=== PATIENT | female | born 1940 | race Caucasian/White ===

== ENCOUNTER → 2016-04-22 | Outpatient (REF) | payer MEDICARE ==
[~2016-04-22] MED LIST: ADVI200T PO; ALBU83IN NEB; AUGM875T27 PO; CALCTAB75 PO; CALCTAB93 PO; IPRA2IN INH; MIRA255PW PO; MULTCAP PO; OMEP40CA2 PO; PRED20TAB PO; TYLE325T5 PO; VITMTA PO
[2016-04-22 11:37] LABS: MEAN CORPUSCULAR HEMOGLOBIN 27.1 pg (27.0-33.0); MEAN CORPUSCULAR HGB CONC 31.2 g/dl (32.0-36.5); RED CELL DISTRIBUTION WIDTH 15.2 % (11.5-14.5); WHITE BLOOD COUNT 9.4 K/mm3 (4.0-10.0)
[2016-04-22 12:09] LABS: ALBUMIN 3.2 GM/DL (3.2-5.2); ALBUMIN/GLOBULIN RATIO 0.73 (1.00-1.93); BILIRUBIN,TOTAL 0.3 MG/DL (0.2-1.0); CALCIUM LEVEL 9.1 MG/DL (8.8-10.2); CREATININE FOR GFR 1.09 MG/DL (0.55-1.02); FREE T4 1.18 NG/DL (0.76-1.46); PERCENT SATURATION 9.9 % (13.2-37.4); TOTAL PROTEIN 7.6 GM/DL (6.4-8.2)
== END ==
LOC: M SFHCPLAZ 08:35
PROVIDERS: ATTEND Family Medicine
DX: J47.9 Bronchiectasis, uncomplicated (principal); E55.9 Vitamin D deficiency, unspecified; Z86.2 Personal history of diseases of the blood and blood-forming organs and certain disorders involving the immune mechanism; R63.6 Underweight; Z13.220 Encounter for screening for lipoid disorders; Z79.899 Other long term (current) drug therapy

== ENCOUNTER → 2016-04-29 | Outpatient (REF) | payer MEDICARE | LOC: M SFHCPLAZ 11:08 | PROVIDERS: ATTEND Family Medicine | DX: J47.1 Bronchiectasis with (acute) exacerbation (principal) ==

== ENCOUNTER → 2016-10-28 | Outpatient (REF) | payer MEDICARE ==
[~2016-10-28] MED LIST changes: +ALBU83IN INH; +AMOX875T2 PO; -AUGM875T27 PO; +AUGM875T28 PO; +BRIM2OPD; +CALC1TAB17 PO; +FERR1TAB8 PO; +IRON18TA2 PO; +MACR100C43 PO; +PRED20TA PO
[2016-10-28 13:26] LABS: MEAN CORPUSCULAR HEMOGLOBIN 30.3 pg (27.0-33.0); MEAN CORPUSCULAR HGB CONC 31.9 g/dl (32.0-36.5); MEAN CORPUSCULAR VOLUME 94.9 fl (80.0-96.0); RED CELL DISTRIBUTION WIDTH 14.1 % (11.5-14.5); RETIC HEMOGLOBIN CONTENT CHr 30.9 PG (24-36); RETICULOCYTE % 1.2 % (0.5-1.5); WHITE BLOOD COUNT 7.6 K/mm3 (4.0-10.0)
[2016-10-28 13:32] LABS: ALBUMIN 3.1 GM/DL (3.2-5.2); CALCIUM LEVEL 9.2 MG/DL (8.8-10.2); CREATININE FOR GFR 1.05 MG/DL (0.55-1.02); GLOMERULAR FILTRATION RATE 54.2 (>39); PERCENT SATURATION 12.3 % (13.2-45.0); PHOSPHORUS LEVEL 2.9 MG/DL (2.5-4.9); POTASSIUM SERUM 4.4 MEQ/L (3.5-5.1)
== END ==
LOC: M SFHCPLAZ 07:50
PROVIDERS: ATTEND Family Medicine
DX: Z86.2 Personal history of diseases of the blood and blood-forming organs and certain disorders involving the immune mechanism (principal)

== ENCOUNTER → 2016-11-05 | Outpatient (REF) | payer MEDICARE | LOC: M SFHCPLAZ 10:03 | PROVIDERS: ATTEND Family Medicine | DX: Z53.8 Procedure and treatment not carried out for other reasons (principal) ==

== ENCOUNTER 2016-12-12 14:00 | Emergency (ER) | payer MEDICARE ==
[~2016-12-12] VITALS: Ht 152.4 cm; Wt 50.0 kg
[~2016-12-12 14:00] MED LIST changes: -ALBU83IN INH; -AMOX875T2 PO; -BRIM2OPD; -CALC1TAB17 PO; -FERR1TAB8 PO; -IRON18TA2 PO; -MACR100C43 PO; -PRED20TA PO
[2016-12-12] MEDS ORDERED: BRIM2OPD (14:11)
[2016-12-12] MEDS: NS 1,000 ML IV SCH (15:15)
[2016-12-12 15:19] LABS: VENOUS BASE EXCESS 1.2 (-2.0-2.0); VENOUS O2 SATURATION 61.6 % (60.0-80.0); VENOUS PARTIAL PRESSURE CO2 40.2 mmHg (38.0-50.0); VENOUS PARTIAL PRESSURE O2 31.4 mmHg (30.0-50.0); VENOUS STANDARD HCO3 24.8 MEQ/L; VENOUS TOTAL CO2 26.9 MEQ/L (24.0-28.0)
[2016-12-12 15:27] LABS: MEAN CORPUSCULAR HEMOGLOBIN 29.6 pg (27.0-33.0); MEAN CORPUSCULAR HGB CONC 32.3 g/dl (32.0-36.5); MEAN CORPUSCULAR VOLUME 91.7 fl (80.0-96.0); PLATELET COUNT, AUTOMATED 153 10^3/uL (150-450); RED CELL DISTRIBUTION WIDTH 13.5 % (11.5-14.5); WHITE BLOOD COUNT 12.3 10^3/uL (4.0-10.0)
[2016-12-12 15:31] LABS: LEFT SHIFT POS FLAG; POSITIVE MORPH POS FLAG
[2016-12-12 15:32] LABS: ADD MANUAL DIFFER YES; DIFF SLIDE NUMBER 119
[2016-12-12 15:46] LABS: ALBUMIN/GLOBULIN RATIO 0.63 (1.00-1.93); ALKALINE PHOSPHATASE 103 U/L (45-117); ALT/SGPT 21 U/L (12-78); ANION GAP 11 MEQ/L (8-16); AST/SGOT 25 U/L (15-37); BILIRUBIN,DIRECT 0.3 MG/DL (0.0-0.2); BILIRUBIN,TOTAL 0.8 MG/DL (0.2-1.0); BLOOD UREA NITROGEN 16 MG/DL (7-18); CALCIUM LEVEL 8.7 MG/DL (8.8-10.2); CARBON DIOXIDE LEVEL 23 MEQ/L (21-32); CHLORIDE LEVEL 101 MEQ/L (98-107); CREATININE FOR GFR 1.32 MG/DL (0.55-1.02); GLOMERULAR FILTRATION RATE 41.5 (>39); GLUCOSE, FASTING 116 MG/DL (83-110); POTASSIUM SERUM 3.8 MEQ/L (3.5-5.1); SODIUM LEVEL 135 MEQ/L (136-145); TOTAL PROTEIN 7.8 GM/DL (6.4-8.2)
[2016-12-12 15:56] LABS: INR 1.23
[2016-12-12 15:57] LABS: BANDS 10 % (< 11)
[2016-12-12] MEDS ORDERED: ISOVUE-370 76% 100ML VIAL (Q9967) As Ordered ONE (16:35)
[2016-12-12 16:53] LABS: RENAL EPITHELIAL CELLS 2 /HPF
[2016-12-12 17:00] VITALS: O2SAT 88
[2016-12-12] MEDS ORDERED: MACR100C43 PO (17:25)
[2016-12-12 17:47] VITALS: BP 113/59
--- NOTE | 2016-12-13 05:36 | REP ---
Chest x-ray: Two views. History: Dyspnea and cough. Comparison chest x-ray November 05, 2015. Findings: There is evidence of severe COPD with cystic bronchiectasis replacing most of the lower lobe on the left and volume loss and interstitial fibrosis in the upper lobe. There is considerable pleural thickening surrounding the upper lobe on the left and there is overall volume loss in the left hemithorax. Interstitial fibrosis pattern is seen in the right upper lobe and right base laterally. These changes on the right are a little more prominent than on the prior study. No bony destructive lesion is seen. There is a calcific opacity in the right upper quadrant of the abdomen which may be rib cartilage or biliary tract calcification. Impression: Evidence of cystic bronchiectasis replacing most of the left lower lobe. Overall volume loss left hemithorax. Considerable pleural thickening surrounding the left upper lobe with bilateral upper lobe and right base interstitial fibrosis pattern. The right lung changes are more pronounced than previously. Consider chest CT preferably with IV contrast. Signed by Milan Sullivan MD 12/13/2016 08:42 A
--- NOTE | 2016-12-13 06:05 | REP ---
CT chest with IV contrast: History: Shortness of breath. Comparison is made with today's chest x-ray findings. CT contrast dose: 75 ml of intravenous Isovue [address] findings: There is advanced cystic bronchiectasis throughout the left lung. This is most pronounced in the left lower lobe where there are innumerable cystic spaces replacing the lung parenchyma. There are advanced changes in the left upper lobe as well. Mild reactive pleural thickening is seen. There is volume loss in the left lung as seen radiographically. There are emphysematous and interstitial fibrosis changes in the right lung. Bronchiectasis is noted with chronic collapse of the right middle lobe as well. There is some segmental bronchiectasis and atelectasis in the right lower lobe. There is mild subcarinal right hilar and mediastinal lymphadenopathy which may be reactive. A small sliding hiatal hernia is noted. An opaque gallstone is seen. There are several intrarenal calculi in the left kidney the largest of which measures 7 mm in greatest diameter. The calcified gallstone measures 16 mm. No bony destructive lesion is seen. Impression: Advanced cystic bronchiectasis bilaterally. This is most pronounced throughout the left lung and in the right middle lobe. Cholelithiasis and left renal nephrolithiasis without hydronephrosis is seen. Some interstitial fibrosis is noted in the remaining right lung. A small hiatal hernia is visible. Mediastinal and right hilar adenopathy may be reactive. Signed by Milan Sullivan MD 12/13/2016 08:45 A
--- NOTE | 2016-12-13 08:02 | ECGEPIP ---
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
--- NOTE | 2016-12-13 10:00 | ED PDOC ---
Post-Departure Follow-Up radiology report faxed to Deb Palmer MD Dec 13, 2016 10:00
[2016-12-13] MEDS ORDERED: IRON18TA2 PO (15:50)
[2016-12-13] MEDS ORDERED: FERR1TAB8 PO (21:52)
[2016-12-13] MEDS ORDERED: CALC1TAB17 PO (21:52)
[2016-12-13] MEDS ORDERED: ALBU83IN INH (21:52)
== END 2016-12-12 17:42 | disposition home or self-care (01) ==
LOC: M ED 14:00
DX: N39.0 Urinary tract infection, site not specified (principal); Z79.01 Long term (current) use of anticoagulants

== ENCOUNTER 2016-12-13 15:36 | Inpatient (IN) | payer MEDICARE ==
[~2016-12-13] VITALS: Ht 152.4 cm; Wt 52.1 kg
[~2016-12-13 15:36] MED LIST changes: +BRIM2OPD; +MACR100C43 PO
[2016-12-13] MEDS ORDERED: IRON18TA2 PO (15:50)
[2016-12-13] MEDS ORDERED: ACETAMINOPHEN TAB 650MG DOSE (2X325MG) PO ONE (16:30)
[2016-12-13 16:40] LABS: MEAN CORPUSCULAR HEMOGLOBIN 29.6 pg (27.0-33.0); MEAN CORPUSCULAR HGB CONC 32.5 g/dl (32.0-36.5); PLATELET COUNT, AUTOMATED 171 10^3/uL (150-450); RED CELL DISTRIBUTION WIDTH 13.3 % (11.5-14.5); WHITE BLOOD COUNT 11.2 10^3/uL (4.0-10.0)
[2016-12-13 16:42] LABS: POSITIVE MORPH POS FLAG
[2016-12-13 16:43] LABS: LEFT SHIFT POS FLAG
[2016-12-13 16:44] LABS: ADD MANUAL DIFFER YES; DIFF SLIDE NUMBER 321
[2016-12-13 16:50] LABS: INR 1.23
--- NOTE | 2016-12-13 16:56 | REP ---
Chest two views HISTORY: Cough Comparison: 12/12/1969 There is loss of volume in the left hemithorax. A diffuse increase in interstitial markings is present in the lungs. Cystic changes are present in the left mid and lower lung. The heart is normal in size. The pulmonary vasculature is normal in appearance. The bony structure is intact. IMPRESSION: Findings consistent with chronic interstitial fibrosis and cystic bronchiectasis. Signed by Luis Mercado MD 12/13/2016 04:48 P
[2016-12-13 16:57] LABS: ABG BASE EXCESS -1.6 (-2.0-2.0); ABG HCO3 21.4 MEQ/L (22.0-26.0); ABG PARTIAL PRESSURE CO2 30.5 mmHg (35.0-45.0); ABG PARTIAL PRESSURE O2 77.6 mmHg (75.0-100.0); ABG STANDARD HCO3 23.1 MEQ/L (22.0-26.0); ABG TOTAL CO2 22.3 MEQ/L (23.0-31.0); ABG pH (ARTERIAL) 7.463 UNITS (7.350-7.450)
[2016-12-13 17:09] LABS: BANDS 2 % (< 11)
[2016-12-13 17:10] LABS: HYPOCHROMASIA 1+
[2016-12-13 17:13] LABS: ALBUMIN 2.8 GM/DL (3.2-5.2); ALBUMIN/GLOBULIN RATIO 0.54 (1.00-1.93); BILIRUBIN,DIRECT 0.3 MG/DL (0.0-0.2); BILIRUBIN,TOTAL 0.8 MG/DL (0.2-1.0); CALCIUM LEVEL 8.7 MG/DL (8.8-10.2); CREATININE FOR GFR 1.29 MG/DL (0.55-1.02); GLOMERULAR FILTRATION RATE 42.7 (>39); POTASSIUM SERUM 3.6 MEQ/L (3.5-5.1)
[2016-12-13] MEDS ORDERED: IPRATROPIUM 0.5MG/ALBUTEROL 2.5MG INH SOL UD 3ML (DUONEB)(J7620) NEB PRN (20:45)
[2016-12-13] MEDS ORDERED: ONDANSETRON 4MG/2ML VIAL (J2405) IV PRN (20:45)
[2016-12-13] MEDS: SENOKOT S TAB PO SCH (21:00)
[2016-12-13] MEDS ORDERED: FERR1TAB8 PO (21:52)
[2016-12-13] MEDS ORDERED: ALBU83IN INH (21:52)
[2016-12-13] MEDS ORDERED: CALC1TAB17 PO (21:52)
--- NOTE | 2016-12-13 22:02 | HPE ---
DATE OF ADMISSION: 12/13/2016 PRIMARY CARE PROVIDER: Dustin Grier MD VETERINARIAN ASSISTANT: Stoney Leo DO CHIEF COMPLAINT: Shortness of breath, coughing, fevers, generalized weakness. HISTORY OF PRESENT ILLNESS: This is a 76-year-old female patient with underlying medical history of severe bronchiectasis with heavy pseudomonas colonization before, secondary to secondhand smoke, emphysema, adenomatous polyps in the colon, gallstone pancreatitis 2012, osteoporosis, cataract surgery, glaucoma, likely emphysema as well, currently being treated for a urinary tract infection (UTI), presented to hospital with a 4 day history of progressively worsening weakness, significant cough productive of large amount of green sputum, shortness of breath, generalized weakness, at baseline is ambulatory, sick contact is the who is recently having upper respiratory infection (URI) symptoms. Patient has a history of pseudomonas colonization as per documentation. Currently, also has hoarseness. Patient denies any chest pain, pressure, or discomfort. Denies any nausea or vomiting. No recent travel. ALLERGIES: BIMATOPROST, TRAVATAN, KEFLEX, CLARITHROMYCIN, DICLOFENAC, DORZOLAMIDE, XALATAN, LEVAQUIN, BACTRIM, TIMOLOL, TRAVOPROST, MOXIFLOXACIN. PAST MEDICAL HISTORY: 1. Emphysema. 2. Bronchiectasis. 3. Adenomatous polyps in the colon. 4. Gallstone pancreatitis. 5. Glaucoma. 6. Cataracts. 7. Long-term secondhand smoking exposure. 8. Osteoporosis. PAST SURGICAL HISTORY: 1. Colonoscopy. 2. Bilateral cataract extraction. 3. Left eye laser surgery. SOCIAL HISTORY: Nonsmoker, heavy secondhand smoke. Does not drink alcohol or use illicit drugs. Not on oxygen at home. Not on continuous positive airway pressure (CPAP) at home. FAMILY HISTORY: Father with emphysema and smoking, from lung disease. REVIEW OF SYSTEMS: Reported significant cough, shortness of breath, hoarseness, generalized weakness. All other review of systems negative. HOME MEDICATIONS: - acetaminophen 650 mg by mouth every 4 hours as needed - DuoNeb inhalation every 2 hours as needed - brimonidine eye drops 0.125% twice a day - calcium with vitamin D one tablet by mouth daily - ibuprofen 200 mg by mouth as needed - multivitamin one tablet by mouth daily - nitrofurantoin 100 mg by mouth twice a day - ferrous sulfate once daily PHYSICAL EXAMINATION: VITAL SIGNS: Temperature 98.9, maximum temperature (T-max) 101.2, pulse 86, respirations 22, blood pressure 123/56, pulse oximetry 96% on three liters nasal cannula. GENERAL: Patient was hoarse, frail, comfortable, in no acute distress. HEENT: Normocephalic, atraumatic. PULMONARY: Diminished breath sounds, bilateral rhonchi and crackles. CARDIAC: Regular rate and rhythm, normal S1, S2. ABDOMEN: Soft, nontender. Positive bowel sounds. EXTREMITIES: No edema bilateral lower extremities. EKG sinus tachycardia at 100, no ST segment changes. LABORATORY DATA: WBC 11.2, hemoglobin and hematocrit 10.8/33.2, platelets 171. Chemistry: Sodium 135, potassium 3.6, chloride 101, bicarbonate 23, BUN 17, creatinine 1.29, C-reactive protein 18.5. Chest x-ray shows consistent with interstitial fibrosis, cystic bronchiectasis. ASSESSMENT AND PLAN: This is a 76-year-old female patient with underlying medical history of heavy secondhand smoking, bronchiectasis with pseudomonas colonization, colonic adenoma, gallstone pancreatitis, emphysema, osteoporosis, admitted with pneumonia and hypoxic respiratory failure. 1. Community-acquired bacterial pneumonia. Given history of pseudomonas colonization, will place the patient on meropenem. Followup cultures, sputum cultures, C-reactive protein, respiratory panel. Nebulizer treatments. Continue home medication. 2. Emphysema. Solu-Medrol, nebulizer treatments. Patient does not have any significant wheeze. Continue treatment for pneumonia as above. 3. Urinary tract infection (UTI). Patient will be on meropenem. 4. Hoarseness. Rapid strep negative in the emergency department (ED). 5. Deep venous thrombosis (DVT) prophylaxis. Heparin subcutaneous. DISPOSITION PLANNING: Pending clinical improvement. Oxygen supplementation, wean FiO2. Physical therapy.
[2016-12-13] MEDS ORDERED: SLF 3 ML SYR IV PRN (23:45)
[2016-12-13 23:59] VITALS: BP 116/56
[2016-12-14] VITALS (14 sets, daily range): BP systolic 90–122; BP diastolic 48–58; O2SAT 94–99
[2016-12-14] MEDS: MEROPENEM INJ 1 GM in D5W MINI-BAG PLUS 100 ML IV SCH ×3 (00:16→15:57)
[2016-12-14] MEDS: methylPREDNISolone INJ 125 MG/2 ML VIAL (J2930) IV SCH ×2 (00:16→11:28)
[2016-12-14] MEDS: IPRATROPIUM 0.5MG/ALBUTEROL 2.5MG INH SOL UD 3ML (DUONEB)(J7620) NEB SCH ×4 (01:36→19:29)
[2016-12-14 05:27] LABS: MEAN CORPUSCULAR HEMOGLOBIN 29.4 pg (27.0-33.0); MEAN CORPUSCULAR HGB CONC 32.4 g/dl (32.0-36.5); RED CELL DISTRIBUTION WIDTH 13.2 % (11.5-14.5); WHITE BLOOD COUNT 5.6 10^3/uL (4.0-10.0)
[2016-12-14] MEDS: SLF 3 ML SYR IV SCH ×3 (05:29→19:48)
--- NOTE | 2016-12-14 05:30 | ECGEPIP ---
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
[2016-12-14 06:03] LABS: CREATININE FOR GFR 1.02 MG/DL (0.55-1.02); GLOMERULAR FILTRATION RATE 55.9 (>39); MAGNESIUM LEVEL 2.2 MG/DL (1.8-2.4); POTASSIUM SERUM 3.8 MEQ/L (3.5-5.1)
[2016-12-14] MEDS: HEPARIN SOD (PORCINE) 5000 UNITS/ML VIAL SC SCH ×2 (08:06→19:48)
[2016-12-14] MEDS: MULTIVITAMINS/MINERALS THERAP 1 TAB PO SCH (08:06)
[2016-12-14] MEDS: SENOKOT S TAB PO SCH ×2 (08:07→19:47)
[2016-12-14] MEDS: FERROUS SULFATE 325MG TAB PO SCH (08:07)
[2016-12-14] MEDS: ACETAMINOPHEN TAB 650MG DOSE (2X325MG) PO PRN ×2 (09:20→19:49)
--- NOTE | 2016-12-14 09:22 | IPNPDOC ---
Subjective Date Seen The patient was seen on 12/14/16. Subjective Chief Complaint/HPI The patient is a 76-year-old female admitted with a reason for visit of Bronchiectasis;Hypoxia. Events since last encounter Pt's at bedside, he is very anxious, somewhat agitated and disruptive during our encounter. The pt after finally settling her states that she is feeling better, she feels less SOB, she is coughing, with some sputum production. Both an improvement c/w yesterday. She denies any further fevers as well. General: Denies: Fatigue Constitutional: Denies: Fever ENT: Denies: Head Aches Pulmonary: Reports: Dyspnea, Cough Cardiovascular: Denies: Chest Pain, Palpitations Gastrointestinal: Denies: Nausea, Vomiting, Diarrhea Neurological: Reports: Weakness Psych: Reports: Mood Normal Objective Physical Examination General Exam: Positive: Alert, Cooperative, No Acute Distress ENT Exam: Positive: Mucous membr. moist/pink Neck Exam: Positive: Supple Chest Exam: Positive: Rhonchi (throughout but most notable at the R base), Diminished Heart Exam: Positive: Rate Normal, Normal S1, Normal S2 Abdomen Exam: Positive: Normal bowel sounds, Soft, Negative: Tenderness Extremity Exam: Negative: Edema Psych Exam: Positive: Mental status NL, Mood NL Assessment /Plan Problems (1) Community acquired bacterial pneumonia Status: Acute Response to Treatment: Stable, Improving Discussed With: Nurse, Patient, Family with Pt Consent Problem Specific Plan: Monitor Clinically Problem Text: Resp status stable, improved. Cont with O2, Duonebs, Meropenem D2 (mtp abx allergies). Sputum culture pending. (2) Bronchiectasis Status: Chronic Response to Treatment: Stable Discussed With: Nurse, Patient, Family with Pt Consent Problem Specific Plan: Monitor Clinically Problem Text: Cont O2, Duonebs, Solumedrol. She follows with Dr Leo as as outpt. (3) Hypoxia Status: Acute Response to Treatment: Stable, Improving Problem Specific Plan: Monitor Clinically (4) UTI (urinary tract infection) Status: Acute Response to Treatment: Stable Discussed With: Nurse, Patient, Family with Pt Consent Problem Specific Plan: Monitor Clinically, Repeat Labs Problem Text: Urine culture pending, cont with meropenem D 2. Plan/VTE VTE Prophylaxis Ordered?: Yes Plan Family Medicine Attending Note: I saw and examined Ms. Miller, discussed with JANNETH Emery. Agree with their note as documented. She reports that her breathing is a little better today compared to yesterday. We will continue to monitor her symptoms and labs. VS, I&O, 24H, [place] Vital Signs/I&O Vital Signs Date Time Temp Pulse Resp B/P (MAP) Pulse Ox O2 Delivery O2 Flow Rate FiO2 12/14/16 07:29 Nasal Cannula 2.0 12/14/16 07:10 97.4 68 20 90/55 (67) 94 12/13/16 16:43 88 Laboratory Data 24H LABS Laboratory Tests 2 12/13/16 16:27: Lactic Acid Level 1.9 12/13/16 16:28: Nucleated Red Blood Cells % (auto) 0.0, Neutrophils 77H, Band Neutrophils 2, Lymphocytes (Manual) 9L, Monocytes (Manual) 12H, Atypical Lymphocytes 0, Platelet Estimate NORMAL, Hypochromasia 1+, Prothrombin Time 15.7H, Prothromb Time International Ratio 1.23, Activated Partial Thromboplast Time 35.5, Anion Gap 11, Glomerular Filtration Rate 42.7, Calcium Level 8.7L, Aspartate Amino Transf (AST/SGOT) 25, Alanine Aminotransferase (ALT/SGPT) 20, Alkaline Phosphatase 113, Total Bilirubin 0.8, Direct Bilirubin 0.3H, C-Reactive Protein , Quantitative 18.50H, Total Protein 8.0, Albumin 2.8L, Albumin/Globulin Ratio 0.54L 12/13/16 16:41: Blood Gas Bicarbonate Standard 23.1, Arterial Blood pH 7.463H, Arterial Blood Partial Pressure CO2 30.5L, Arterial Blood Partial Pressure O2 77.6, Arterial Blood Total CO2 22.3L, Arterial Blood HCO3 21.4L, Arterial Blood Base Excess - 1.6, Arterial Blood Oxygen Saturation 96.4 12/13/16 23:45: Urine Appearance HAZY, Urine Color YELLOW, Urine pH 5.0, Urine Specific [place] 1.016, Urine Protein NEGATIVE, Urine Glucose (UA) NEGATIVE, Urine Ketones TRACEH , Urine Urobilinogen 0.2, Urine Bilirubin NEGATIVE, Urine Leukocyte Esterase 2+H , Urine Blood 1+H, Urine Nitrite NEGATIVE, Urine WBC (Auto) 26H, Urine RBC (Auto ) 19H, Urine Hyaline Casts (Auto) 4, Urine Bacteria (Auto) NEGATIVE, Urine Squamous Epithelial Cells 1, Urine Mucus (Auto) SMALL, Urine Sperm (Auto) 12/14/16 04:40: Nucleated Red Blood Cells % (auto) 0.0, Anion Gap 12, Glomerular Filtration Rate 55.9, Blood Urea Nitrogen 19H, Creatinine 1.02, Sodium Level 138, Potassium Level 3.8, Chloride Level 105, Carbon Dioxide Level 21, Calcium Level 8.0L, Magnesium Level 2.2, C-Reactive Protein, Quantitative 18.80H CBC/BMP Laboratory Tests 12/13/16 16:28 Red Blood Count 3.65 L, Mean Corpuscular Volume 91.0, Mean Corpuscular Hemoglobin 29.6, Mean Corpuscular Hemoglobin Concent 32.5, Red Cell Distribution Width 13.3 12/14/16 04:40 Red Blood Count 3.43 L, Mean Corpuscular Volume 91.0, Mean Corpuscular Hemoglobin 29.4, Mean Corpuscular Hemoglobin Concent 32.4, Red Cell Distribution Width 13.2, Calcium Level 8.0 L Microbiology Microbiology 12/13/16 Blood Culture, Received Pending 12/13/16 Blood Culture, Received Pending 12/14/16 Respiratory Virus Panel (PCR) (AJ) - Final, Complete 12/13/16 Gram Stain - Final, Resulted 12/13/16 Sputum Culture, Resulted Pending 12/13/16 Urine Culture, Received Pending FANNY CABRAL PA-C Dec 14, 2016 09:22 Krzysztof Palafox MD Dec 15, 2016 07:24
[2016-12-15] VITALS (12 sets, daily range): BP systolic 110–137; BP diastolic 56–65; O2SAT 94–100
[2016-12-15] MEDS: methylPREDNISolone INJ 125 MG/2 ML VIAL (J2930) IV SCH ×3 (01:03→23:57)
[2016-12-15] MEDS: MEROPENEM INJ 1 GM in D5W MINI-BAG PLUS 100 ML IV SCH ×4 (01:03→23:57)
[2016-12-15] MEDS: IPRATROPIUM 0.5MG/ALBUTEROL 2.5MG INH SOL UD 3ML (DUONEB)(J7620) NEB SCH ×4 (02:03→19:45)
[2016-12-15 05:56] LABS: MEAN CORPUSCULAR HEMOGLOBIN 29.5 pg (27.0-33.0); MEAN CORPUSCULAR VOLUME 89.5 fl (80.0-96.0); RED CELL DISTRIBUTION WIDTH 13.2 % (11.5-14.5); WHITE BLOOD COUNT 6.5 10^3/uL (4.0-10.0)
[2016-12-15] MEDS: SLF 3 ML SYR IV SCH ×3 (06:00→22:06)
[2016-12-15 06:10] LABS: CALCIUM LEVEL 8.3 MG/DL (8.8-10.2); CREATININE FOR GFR 1.38 MG/DL (0.55-1.02); GLOMERULAR FILTRATION RATE 39.5 (>39); MAGNESIUM LEVEL 2.4 MG/DL (1.8-2.4); POTASSIUM SERUM 3.7 MEQ/L (3.5-5.1)
[2016-12-15] MEDS: MULTIVITAMINS/MINERALS THERAP 1 TAB PO SCH (08:33)
[2016-12-15] MEDS: FERROUS SULFATE 325MG TAB PO SCH (08:33)
[2016-12-15] MEDS: HEPARIN SOD (PORCINE) 5000 UNITS/ML VIAL SC SCH ×2 (08:33→22:05)
[2016-12-15] MEDS: SENOKOT S TAB PO SCH ×2 (08:33→22:21)
--- NOTE | 2016-12-15 09:56 | IPNPDOC ---
Subjective Date Seen The patient was seen on 12/15/16. Subjective Chief Complaint/HPI The patient is a 76-year-old female admitted with a reason for visit of Bronchiectasis;Hypoxia. Events since last encounter Pt states she feels about the same. Complains of weakness. Still SOB. Denies CP, Abd pain. Constitutional: Denies: Chills, Fever Pulmonary: Reports: Dyspnea Cardiovascular: Denies: Chest Pain Gastrointestinal: Denies: Abdominal Pain Neurological: Reports: Weakness Objective Physical Examination General Exam: Positive: Alert, Cooperative, No Acute Distress ENT Exam: Positive: Mucous membr. moist/pink Neck Exam: Positive: Supple Chest Exam: Positive: Rhonchi (throughout but most notable at the R base), Diminished Heart Exam: Positive: Rate Normal, Normal S1, Normal S2 Abdomen Exam: Positive: Normal bowel sounds, Soft, Negative: Tenderness Extremity Exam: Negative: Edema Psych Exam: Positive: Mental status NL, Mood NL, Oriented x 3 Assessment /Plan Problems (1) Community acquired bacterial pneumonia Status: Acute Response to Treatment: Stable, Improving Discussed With: Nurse, Patient, Family with Pt Consent Problem Specific Plan: Monitor Clinically Problem Text: 12/15 - Meropenem, Nebs, O2. Will order IS. Sputum Cx pending. Resp status stable, improved. Cont with O2, Duonebs, Meropenem D2 (mtp abx allergies). Sputum culture pending. (2) Bronchiectasis Status: Chronic Response to Treatment: Stable Discussed With: Nurse, Patient, Family with Pt Consent Problem Specific Plan: Monitor Clinically Problem Text: 12/15 - Meropenem, Nebs, O2. Will order IS. Sputum Cx pending. Cont O2, Duonebs, Solumedrol. She follows with Dr Leo as as outpt. (3) Hypoxia Status: Resolved Response to Treatment: Stable, Improving Problem Specific Plan: Monitor Clinically (4) UTI (urinary tract infection) Status: Acute Response to Treatment: Stable Discussed With: Nurse, Patient, Family with Pt Consent Problem Specific Plan: Monitor Clinically, Repeat Labs Problem Text: Urine culture pending, cont with meropenem D 2. (5) Acute kidney injury Status: Resolved Problem Specific Plan: Monitor Clinically Problem Text: 12/15 - BUN 42/Creat 1.32 (18/03.02 yesterday). Will obtain Renal U/S. (6) Weakness Status: Resolved Problem Specific Plan: Monitor Clinically Problem Text: 12/15 - Will order PT/OT. Plan/VTE VTE Prophylaxis Ordered?: Yes Plan Family Medicine Attending Note: I saw and examined Ms. Miller, discussed with JANNETH Pal. Agree with their note as documented. Ms. Miller has made some improvement but still remains quite wheezy and short of breath. We'll continue current regimen and monitor. 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) VS, I&O, 24H, Fishbone Vital Signs/I&O Vital Signs Date Time Temp Pulse Resp B/P (MAP) Pulse Ox O2 Delivery O2 Flow Rate FiO2 12/15/16 08:00 97.4 87 20 116/65 (82) 95 Room Air 12/14/16 17:00 2.0 12/13/16 16:43 88 I&O- Last 24 Hours up to 6 AM 12/16/16 05:59 Intake Total 0 ml Output Total 350 ml Balance -350 ml Laboratory Data 24H LABS Laboratory Tests 2 12/15/16 05:24: Nucleated Red Blood Cells % (auto) 0.0, Anion Gap 9, Glomerular Filtration Rate 39.5, Blood Urea Nitrogen 42#H, Creatinine 1.38H, Sodium Level 144, Potassium Level 3.7, Chloride Level 107, Carbon Dioxide Level 28, Calcium Level 8.3L, Magnesium Level 2.4 CBC/BMP Laboratory Tests 12/15/16 05:24 Red Blood Count 3.25 L, Mean Corpuscular Volume 89.5, Mean Corpuscular Hemoglobin 29.5, Mean Corpuscular Hemoglobin Concent 33.0, Red Cell Distribution Width 13.2, Calcium Level 8.3 L Microbiology Microbiology 12/13/16 Blood Culture - Preliminary, Resulted No growth after 24 hours . All specim... 12/13/16 Blood Culture - Preliminary, Resulted No growth after 24 hours . All specim... 12/14/16 Respiratory Virus Panel (PCR) (AJ) - Final, Complete 12/13/16 Gram Stain - Final, Resulted 12/13/16 Sputum Culture, Resulted Pending 12/13/16 Urine Culture, Received Pending Ortega Cabrera Dec 15, 2016 09:56 Krzysztof Palafox MD Dec 17, 2016 15:25
--- NOTE | 2016-12-15 14:13 | REP ---
RENAL ULTRASOUND: HISTORY: Acute kidney injury. The kidney are hyperechoic. The kidneys are atrophic. The right kidney measures 5.5 cm in transverse by 4.2 cm in AP x 7.5 cm in cephalocaudal dimensions. The left kidney measures 5.4 cm in transverse x 4.9 cm in AP x 9.1 cm in cephalocaudal dimensions. There is no hydronephrosis or mass. There are several focal areas of increased echogenicity in the left kidney that may represent small stones. The largest measures 6.5 mm. There are no filling defects in the urinary bladder. IMPRESSION: 1. Bilateral renal atrophy. 2. There are several small areas of increased echogenicity in the left kidney that may represent stones. Signed by Luis Mercado MD 12/15/2016 02:21 P
[2016-12-16] VITALS (12 sets, daily range): BP systolic 117–145; BP diastolic 57–65; O2SAT 94–95
[2016-12-16] MEDS: IPRATROPIUM 0.5MG/ALBUTEROL 2.5MG INH SOL UD 3ML (DUONEB)(J7620) NEB SCH ×4 (02:00→19:14)
[2016-12-16 06:12] LABS: MEAN CORPUSCULAR HGB CONC 32.3 g/dl (32.0-36.5); MEAN CORPUSCULAR VOLUME 89.9 fl (80.0-96.0); RED CELL DISTRIBUTION WIDTH 13.4 % (11.5-14.5)
[2016-12-16] MEDS: SLF 3 ML SYR IV SCH ×3 (06:17→20:52)
[2016-12-16 06:27] LABS: CALCIUM LEVEL 8.3 MG/DL (8.8-10.2); GLOMERULAR FILTRATION RATE 57.2 (>39); MAGNESIUM LEVEL 2.4 MG/DL (1.8-2.4); POTASSIUM SERUM 3.8 MEQ/L (3.5-5.1)
[2016-12-16] MEDS: MULTIVITAMINS/MINERALS THERAP 1 TAB PO SCH (08:35)
[2016-12-16] MEDS: FERROUS SULFATE 325MG TAB PO SCH (08:35)
[2016-12-16] MEDS: MEROPENEM INJ 1 GM in D5W MINI-BAG PLUS 100 ML IV SCH ×3 (08:35→22:56)
[2016-12-16] MEDS: SENOKOT S TAB PO SCH ×2 (08:35→20:50)
[2016-12-16] MEDS: HEPARIN SOD (PORCINE) 5000 UNITS/ML VIAL SC SCH ×2 (08:35→20:50)
--- NOTE | 2016-12-16 08:40 | IPNPDOC ---
Subjective Date Seen The patient was seen on 12/16/16. Subjective Chief Complaint/HPI The patient is a 76-year-old female admitted with a reason for visit of Bronchiectasis;Hypoxia. Events since last encounter Pt feeling much better this morning. She states that her breathing is much better than it was, she is coughing less and with less sputum production. General: Denies: Fatigue Constitutional: Denies: Chills, Fever ENT: Denies: Head Aches Pulmonary: Reports: Dyspnea, Cough Cardiovascular: Denies: Chest Pain, Palpitations Gastrointestinal: Denies: Nausea, Vomiting, Diarrhea Neurological: Denies: Weakness Psych: Reports: Mood Normal Objective Physical Examination General Exam: Positive: Alert, Cooperative, No Acute Distress ENT Exam: Positive: Mucous membr. moist/pink Neck Exam: Positive: Supple Chest Exam: Positive: Rhonchi (few rhonchi at R base), Diminished Heart Exam: Positive: Rate Normal, Normal S1, Normal S2 Abdomen Exam: Positive: Normal bowel sounds, Soft, Negative: Tenderness Extremity Exam: Negative: Edema Psych Exam: Positive: Mental status NL, Mood NL, Oriented x 3 Assessment /Plan Problems (1) Community acquired bacterial pneumonia Status: Acute Response to Treatment: Stable, Improving Discussed With: Nurse, Patient, Family with Pt Consent Problem Specific Plan: Monitor Clinically Problem Text: 12/16 - Meropenem D3, Nebs. She has been weaned off O2. Sputum cultures remain pending, blood cultures neg. 12/15 - Meropenem, Nebs, O2. Will order IS. Sputum Cx pending. Resp status stable, improved. Cont with O2, Duonebs, Meropenem D2 (mtp abx allergies). Sputum culture pending. (2) Bronchiectasis Status: Chronic Response to Treatment: Stable Discussed With: Nurse, Patient, Family with Pt Consent Problem Specific Plan: Monitor Clinically Problem Text: 12/16 - Solumedrol 60 mg IV q12h, will decrease to 40 mg IV BID, plan to change to PO tomorrow. 12/15 - Meropenem, Nebs, O2. Will order IS. Sputum Cx pending. Cont O2, Duonebs, Solumedrol. She follows with Dr Leo as as outpt. (3) Hypoxia Status: Resolved Response to Treatment: Stable, Improving Problem Specific Plan: Monitor Clinically (4) UTI (urinary tract infection) Status: Acute Response to Treatment: Stable Discussed With: Nurse, Patient, Family with Pt Consent Problem Specific Plan: Monitor Clinically, Repeat Labs Problem Text: 12/16 Urine culture pending, cont with meropenem D3 (5) Acute kidney injury Status: Resolved Problem Specific Plan: Monitor Clinically Problem Text: 12/15 - BUN 42/Creat 1.32 (18/03.02 yesterday). Will obtain Renal U/S. (6) Weakness Status: Resolved Problem Specific Plan: Monitor Clinically Problem Text: 12/15 - Will order PT/OT. Plan/VTE VTE Prophylaxis Ordered?: Yes Plan Family Medicine Attending Note: I saw and examined Ms. Miller, discussed with JANNETH Emery. Agree with their note as documented. Ms. Miller has made good improvement in the last 24 hours. She still has some wheezing and some rales noted, but they're much improved. She certainly heading the right way. We have decreased her Solu-Medrol today from 60 to 40. If she continues to do this well we will consider changing to orals tomorrow. 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) VS, I&O, 24H, Fishbone Vital Signs/I&O Vital Signs Date Time Temp Pulse Resp B/P (MAP) Pulse Ox O2 Delivery O2 Flow Rate FiO2 12/16/16 07:48 Room Air 12/16/16 07:38 97.6 73 18 119/57 (77) 96 2.0 12/13/16 16:43 88 I&O- Last 24 Hours up to 6 AM 12/17/16 05:59 Intake Total 100 ml Output Total 0 ml Balance 100 ml Laboratory Data 24H LABS Laboratory Tests 2 12/16/16 05:18: Nucleated Red Blood Cells % (auto) 0.0, Anion Gap 7L, Glomerular Filtration Rate 57.2, Blood Urea Nitrogen 39H, Creatinine 1.00, Sodium Level 142, Potassium Level 3.8, Chloride Level 108H, Carbon Dioxide Level 27, Calcium Level 8.3L, Magnesium Level 2.4, C-Reactive Protein, Quantitative 8.95H CBC/BMP Laboratory Tests 12/16/16 05:18 Red Blood Count 3.45 L, Mean Corpuscular Volume 89.9, Mean Corpuscular Hemoglobin 29.0, Mean Corpuscular Hemoglobin Concent 32.3, Red Cell Distribution Width 13.4, Calcium Level 8.3 L Microbiology Microbiology 12/13/16 Blood Culture - Preliminary, Resulted No Growth after 48 hours. All Specime... 12/13/16 Blood Culture - Preliminary, Resulted No Growth after 48 hours. All Specime... 12/16/16 Stool Occult Blood (AJ), Received Pending 12/14/16 Respiratory Virus Panel (PCR) (AJ) - Final, Complete 12/13/16 Gram Stain - Final, Resulted 12/13/16 Sputum Culture, Resulted Pending 12/13/16 Urine Culture, Received Pending FANNY CABRAL PA-C Dec 16, 2016 08:40 Krzysztof Palafox MD Dec 17, 2016 15:26
[2016-12-16] MEDS: methylPREDNISolone INJ 40 MG/1 ML VIAL (J2920) IV SCH ×2 (12:26→22:56)
[2016-12-17] MEDS: IPRATROPIUM 0.5MG/ALBUTEROL 2.5MG INH SOL UD 3ML (DUONEB)(J7620) NEB SCH ×4 (01:13→20:43)
[2016-12-17 04:31] VITALS: BP 118/61
[2016-12-17] MEDS: SLF 3 ML SYR IV SCH ×3 (05:40→21:31)
[2016-12-17 05:50] LABS: MEAN CORPUSCULAR HEMOGLOBIN 28.7 pg (27.0-33.0); MEAN CORPUSCULAR HGB CONC 31.9 g/dl (32.0-36.5); MEAN CORPUSCULAR VOLUME 90.1 fl (80.0-96.0); PLATELET COUNT, AUTOMATED 192 10^3/uL (150-450); RED CELL DISTRIBUTION WIDTH 13.7 % (11.5-14.5); WHITE BLOOD COUNT 10.1 10^3/uL (4.0-10.0)
[2016-12-17 06:00] LABS: CREATININE FOR GFR 1.03 MG/DL (0.55-1.02); GLOMERULAR FILTRATION RATE 55.3 (>39); MAGNESIUM LEVEL 2.1 MG/DL (1.8-2.4)
[2016-12-17 07:09] VITALS: O2SAT 96
[2016-12-17 08:00] VITALS: BP 139/63
[2016-12-17] MEDS: MEROPENEM INJ 1 GM in D5W MINI-BAG PLUS 100 ML IV SCH (08:24)
[2016-12-17] MEDS: FERROUS SULFATE 325MG TAB PO SCH (08:25)
[2016-12-17] MEDS: HEPARIN SOD (PORCINE) 5000 UNITS/ML VIAL SC SCH ×2 (08:25→20:10)
[2016-12-17] MEDS: MULTIVITAMINS/MINERALS THERAP 1 TAB PO SCH (08:25)
[2016-12-17] MEDS: SENOKOT S TAB PO SCH ×2 (08:25→20:10)
--- NOTE | 2016-12-17 09:02 | IPNPDOC ---
Subjective Date Seen The patient was seen on 12/17/16. Subjective Chief Complaint/HPI The patient is a 76-year-old female admitted with a reason for visit of Bronchiectasis;Hypoxia. Events since last encounter Pt reports that she cont to feel better. Her breathing is better. She cont to cough and cont to have sputum production, milky white in color. General: Denies: Fatigue Constitutional: Denies: Chills, Fever ENT: Denies: Head Aches Pulmonary: Reports: Dyspnea, Cough Cardiovascular: Denies: Chest Pain, Palpitations Gastrointestinal: Denies: Nausea, Vomiting Genitourinary: Denies: Dysuria Neurological: Denies: Weakness Psych: Reports: Mood Normal Objective Physical Examination General Exam: Positive: Alert, Cooperative, No Acute Distress ENT Exam: Positive: Mucous membr. moist/pink Neck Exam: Positive: Supple Chest Exam: Positive: Rhonchi (few rhonchi at R base), Diminished Heart Exam: Positive: Rate Normal, Normal S1, Normal S2 Abdomen Exam: Positive: Normal bowel sounds, Soft, Negative: Tenderness Extremity Exam: Negative: Edema Psych Exam: Positive: Mental status NL, Mood NL, Oriented x 3 Assessment /Plan Problems (1) Community acquired bacterial pneumonia Status: Acute Response to Treatment: Stable, Improving Discussed With: Nurse, Patient, Family with Pt Consent Problem Specific Plan: Monitor Clinically Problem Text: 12/17 - Meropenem D4 - can plan to change to Augmentin at d/c, Nebs. Sputum culture + H Flu. Blood cultures neg. 12/16 - Meropenem D3, Nebs. She has been weaned off O2. Sputum cultures remain pending, blood cultures neg. 12/15 - Meropenem, Nebs, O2. Will order IS. Sputum Cx pending. Resp status stable, improved. Cont with O2, Duonebs, Meropenem D2 (mtp abx allergies). Sputum culture pending. (2) Bronchiectasis Status: Chronic Response to Treatment: Stable Discussed With: Nurse, Patient, Family with Pt Consent Problem Specific Plan: Monitor Clinically Problem Text: 12/17 - change solumedrol to PO Pred. 12/16 - Solumedrol 60 mg IV q12h, will decrease to 40 mg IV BID, plan to change to PO tomorrow. 12/15 - Meropenem, Nebs, O2. Will order IS. Sputum Cx pending. Cont O2, Duonebs, Solumedrol. She follows with Dr Leo as as outpt. (3) Hypoxia Status: Resolved Response to Treatment: Stable, Improving Problem Specific Plan: Monitor Clinically (4) UTI (urinary tract infection) Status: Acute Response to Treatment: Stable Discussed With: Nurse, Patient, Family with Pt Consent Problem Specific Plan: Monitor Clinically, Repeat Labs Problem Text: 12/17 - urine culture without growth. 12/16 Urine culture pending, cont with meropenem D3 (5) Acute kidney injury Status: Resolved Problem Specific Plan: Monitor Clinically Problem Text: 12/15 - BUN 42/Creat 1.32 (18/03. yesterday). Will obtain Renal U/S. (6) Weakness Status: Resolved Problem Specific Plan: Monitor Clinically Problem Text: Safe for d/c per PT. Plan/VTE VTE Prophylaxis Ordered?: Yes Plan Family Medicine Attending Note: I saw and examined Ms. Miller, discussed with JANNETH Emery. Agree with their note as documented. Ms. Miller is doing well. We converted her to oral medications today. Anticipate she will be dischargeable tomorrow unless she has increasing dyspnea or increased leukocytosis. (oncology admin) VS, I&O, 24H, Fishbone Vital Signs/I&O Vital Signs Date Time Temp Pulse Resp B/P (MAP) Pulse Ox O2 Delivery O2 Flow Rate FiO2 12/17/16 08:00 99.0 71 20 139/63 (88) 97 Room Air 12/16/16 07:38 2.0 12/13/16 16:43 88 I&O- Last 24 Hours up to 6 AM 12/18/16 06:00 Intake Total 0 ml Output Total 200 ml Balance -200 ml Laboratory Data 24H LABS Laboratory Tests 2 12/17/16 05:08: Anion Gap 7L, Glomerular Filtration Rate 55.3, Blood Urea Nitrogen 35H, Creatinine 1.03H, Sodium Level 141, Potassium Level 4.0, Chloride Level 107, Carbon Dioxide Level 27, Calcium Level 8.0L, Magnesium Level 2.1 12/17/16 05:09: Nucleated Red Blood Cells % (auto) 0.0 CBC/BMP Laboratory Tests 12/17/16 05:08 Calcium Level 8.0 L 12/17/16 05:09 Red Blood Count 3.52 L, Mean Corpuscular Volume 90.1, Mean Corpuscular Hemoglobin 28.7, Mean Corpuscular Hemoglobin Concent 31.9 L, Red Cell Distribution Width 13.7 Microbiology Microbiology 12/13/16 Blood Culture - Preliminary, Resulted No Growth after 72 hours. All specime... 12/13/16 Blood Culture - Preliminary, Resulted No Growth after 72 hours. All specime... 12/16/16 Stool Occult Blood (AJ) - Final, Complete 12/14/16 Respiratory Virus Panel (PCR) (AJ) - Final, Complete 12/13/16 Gram Stain - Final, Resulted 12/13/16 Sputum Culture - Preliminary, Resulted Haemophilus Influenzae 12/13/16 Urine Culture - Final, Complete FANNY CABRAL PA-C Dec 17, 2016 09:02 Krzysztof Palafox MD Dec 17, 2016 17:05
[2016-12-17] MEDS: predniSONE 20 MG TAB PO SCH (10:23)
[2016-12-17] MEDS: AUGMENTIN 875 MG TAB PO SCH ×2 (11:23→20:10)
[2016-12-17 12:00] VITALS: BP 130/65
[2016-12-17 22:00] VITALS: BP 158/75
[2016-12-18] MEDS: IPRATROPIUM 0.5MG/ALBUTEROL 2.5MG INH SOL UD 3ML (DUONEB)(J7620) NEB SCH ×3 (00:30→13:29)
[2016-12-18] MEDS: SLF 3 ML SYR IV SCH ×2 (05:31→14:00)
[2016-12-18 06:00] VITALS: BP 144/63
[2016-12-18 06:46] LABS: MEAN CORPUSCULAR HEMOGLOBIN 29.4 pg (27.0-33.0); MEAN CORPUSCULAR HGB CONC 32.8 g/dl (32.0-36.5); MEAN CORPUSCULAR VOLUME 89.6 fl (80.0-96.0); PLATELET COUNT, AUTOMATED 185 10^3/uL (150-450); RED CELL DISTRIBUTION WIDTH 13.6 % (11.5-14.5); WHITE BLOOD COUNT 14.3 10^3/uL (4.0-10.0)
[2016-12-18 07:17] LABS: ANION GAP 6 MEQ/L (8-16); BLOOD UREA NITROGEN 34 MG/DL (7-18); CARBON DIOXIDE LEVEL 28 MEQ/L (21-32); CHLORIDE LEVEL 107 MEQ/L (98-107); CREATININE FOR GFR 0.82 MG/DL (0.55-1.02); GLOMERULAR FILTRATION RATE > 60.0 (>39); GLUCOSE, FASTING 98 MG/DL (83-110); MAGNESIUM LEVEL 2.2 MG/DL (1.8-2.4); POTASSIUM SERUM 3.8 MEQ/L (3.5-5.1); SODIUM LEVEL 141 MEQ/L (136-145)
[2016-12-18] MEDS: MULTIVITAMINS/MINERALS THERAP 1 TAB PO SCH (09:12)
[2016-12-18] MEDS: AUGMENTIN 875 MG TAB PO SCH (09:12)
[2016-12-18] MEDS: predniSONE 20 MG TAB PO SCH (09:13)
[2016-12-18] MEDS: SENOKOT S TAB PO SCH (09:13)
[2016-12-18] MEDS: FERROUS SULFATE 325MG TAB PO SCH (09:13)
[2016-12-18] MEDS: HEPARIN SOD (PORCINE) 5000 UNITS/ML VIAL SC SCH (09:13)
[2016-12-18 14:00] VITALS: BP 143/74
[2016-12-18] MEDS ORDERED: PRED20TA PO (15:24)
[2016-12-18] MEDS ORDERED: AMOX875T2 PO (15:24)
--- NOTE | 2016-12-18 15:39 | DS.PDOC ---
Discharge Summary General Date of Admission Dec 13, 2016 at 20:42 Date of Discharge 12/18/2016 Primary Care Physician: Dustin Grier MD Attending Physician: Krzysztof Palafox MD Discharge Summary ADMITTING DIAGNOSES: 1. Community-acquired bacterial pneumonia, concern for pseudomonal pneumonia. 2. Emphysema. 3. Urinary tract infection. 4. Hoarseness DISCHARGE DIAGNOSES: 1. Community-acquired bacterial pneumonia, specifically Haemophilus influenza. 2. Chronic bronchiectasis. 3. Hypoxia, improved. 4. Urinary tract infection. 5. Acute kidney injury, resolved. 6. Weakness, resolved. PROCEDURES PERFORMED DURING STAY: None. ADMISSION HISTORY: Ms. Miller reported to the emergency department with a four- day history of increasing dyspnea and cough productive of larger amounts of green sputum than usual. Please see the admission history and physical for the remaining details. HOSPITAL COURSE: Ms. Miller was admitted to the hospital with a presumed bacterial pneumonia. 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 She did begin to respond to the antibiotics and IV steroids. Sputum culture eventually grew out heavy Haemophilus influenzae and a few pseudomonas aeruginosa (mucoid type). Based on the suggestions from the sensitivity her regimen was changed to oral antibiotics and her steroids were also changed to oral. She tolerated these well and was discharged the next day DISCHARGE CONDITION: Stable. FOLLOW-UP: Prior to discharge an appointment was scheduled with Dr. Dustin Grier on 12/22/16 at 9 o'clock a.m. DIET: As tolerated. ACTIVITY: As tolerated. DISCHARGE MEDICATIONS: Please see below. ALLERGIES: Please see below. LABORATORY DATA: Please see below. IMAGING: Chest x-ray, renal ultrasound DISCHARGE INSTRUCTIONS: 1. Please finish all of your medication as prescribed. Vital Signs/I&Os Vital Signs Date Time Temp Pulse Resp B/P (MAP) Pulse Ox O2 Delivery O2 Flow Rate FiO2 12/18/16 14:00 97.7 87 18 143/74 (97) 95 Room Air 12/16/16 07:38 2.0 12/13/16 16:43 88 I&O- Last 24 Hours up to 6 AM 12/19/16 05:59 Intake Total 280 ml Balance 280 ml Laboratory Data Labs 24H Laboratory Tests 2 12/18/16 06:10: Nucleated Red Blood Cells % (auto) 0.0, Anion Gap 6L, Glomerular Filtration Rate > 60.0, Blood Urea Nitrogen 34H, Creatinine 0.82, Sodium Level 141, Potassium Level 3.8, Chloride Level 107, Carbon Dioxide Level 28, Calcium Level 8.0L, Magnesium Level 2.2, C-Reactive Protein, Quantitative 2.86H CBC/BMP Laboratory Tests 12/18/16 06:10 Red Blood Count 3.37 L, Mean Corpuscular Volume 89.6, Mean Corpuscular Hemoglobin 29.4, Mean Corpuscular Hemoglobin Concent 32.8, Red Cell Distribution Width 13.6, Calcium Level 8.0 L Microbiology Microbiology 12/13/16 Blood Culture - Preliminary, Resulted No Growth after 72 hours. All specime... 12/13/16 Blood Culture - Preliminary, Resulted No Growth after 72 hours. All specime... 12/16/16 Stool Occult Blood (AJ) - Final, Complete 12/14/16 Respiratory Virus Panel (PCR) (AJ) - Final, Complete 12/13/16 Gram Stain - Final, Complete 12/13/16 Sputum Culture - Final, Complete Haemophilus Influenzae Pseudomonas Aeruginosa Mucoid 12/13/16 Urine Culture - Final, Complete Discharge Medications Scheduled (Calcium/Vitamin D 500-200 mg-Unit) 1 Tab Tab, 1 TAB PO DAILY, (Reported) Albuterol Sulfate (Albuterol Sulfate) 2.5 Mg/3 Ml Nebu, 2.5 MG INH BID, ( Reported) Amoxicillin/Clavulanate Potas (Amoxicillin/Clavulanate P 875-125 mg) 1 Tab Tab, 875 MG PO BID take all medication until gone, even if you're feeling better Ferrous Sulfate (Ferrous Sulfate) 325 Mg Tab, 325 MG PO DAILY, (Reported) Multivitamins *[facility] STOCKED* (Thera M Plus *[facility] STOCKED*) 1 Tab Tab, 1 TAB PO DAILY, (Reported) Scheduled PRN Albuterol Sulfate (Albuterol Sulfate) 2.5 Mg/3 Ml Nebu, 2.5 MG NEB Q2H PRN for SHORTNESS OF BREATH, (Reported) Ibuprofen (Advil) 200 Mg Tab, 400 MG PO Q6H PRN for PAIN, (Reported) Allergies Coded Allergies: Bimatoprost (Unverified Allergy, Severe, trouble breathing, 12/12/16) Benzalkonium Chloride (Verified Allergy, Unknown, 2/20/16) Cephalexin (Verified Allergy, Unknown, 04/19/15) Clarithromycin (Verified Allergy, Unknown, 12/12/16) Diclofenac (Verified Allergy, Unknown, 04/19/15) Dorzolamide (Verified Allergy, Unknown, 04/19/15) Latanoprost (Verified Allergy, Unknown, 04/19/15) Levofloxacin (Verified Allergy, Unknown, 12/12/16) Sulfamethoxazole w/Trimethoprim (Verified Allergy, Unknown, 04/19/15) Timolol (Verified Allergy, Unknown, 04/19/15) Travoprost (Verified Allergy, Unknown, 04/19/15) Moxifloxacin (Verified Adverse Reaction, Mild, DIARRHEA, 06/09/12) Krzysztof Palafox MD Dec 18, 2016 15:39
[2016-12-20] MEDS ORDERED: predniSONE 10 MG TAB PO SCH (09:00)
[2016-12-23] MEDS ORDERED: predniSONE 20 MG TAB PO SCH (09:00)
[2016-12-26] MEDS ORDERED: predniSONE 10 MG TAB PO SCH (09:00)
== END 2016-12-18 16:08 | disposition home or self-care (01) | DRG 194 ==
LOC: M ED 15:36 → M ED INP 20:42 → M PCU 23:28 → M MSPAV 12-17 18:38
PROVIDERS: ADMIT Hospitalist; ATTEND Family Medicine
DX: J14 Pneumonia due to Hemophilus influenzae (principal); N17.9 Acute kidney failure, unspecified; N39.0 Urinary tract infection, site not specified; R09.02 Hypoxemia; M81.0 Age-related osteoporosis without current pathological fracture; R49.0 Dysphonia; B96.5 Pseudomonas (aeruginosa) (mallei) (pseudomallei) as the cause of diseases classified elsewhere; J47.9 Bronchiectasis, uncomplicated; R53.1 Weakness; J43.9 Emphysema, unspecified; H40.9 Unspecified glaucoma; Z88.1 Allergy status to other antibiotic agents; Z88.8 Allergy status to other drugs, medicaments and biological substances; Z79.899 Other long term (current) drug therapy; Z77.22 Contact with and (suspected) exposure to environmental tobacco smoke (acute) (chronic)

== ENCOUNTER → 2016-12-22 | Outpatient (REF) | payer MEDICARE ==
[~2016-12-22] MED LIST changes: +ALBU83IN INH; +AMOX875T2 PO; +CALC1TAB17 PO; +FERR1TAB8 PO; +IRON18TA2 PO; +PRED20TA PO
[2016-12-22 13:46] LABS: MEAN CORPUSCULAR HEMOGLOBIN 29.2 pg (27.0-33.0); MEAN CORPUSCULAR HGB CONC 31.5 g/dl (32.0-36.5); MEAN CORPUSCULAR VOLUME 92.6 fl (80.0-96.0); PLATELET COUNT, AUTOMATED 263 10^3/uL (150-450); RED CELL DISTRIBUTION WIDTH 14.6 % (11.5-14.5); RETIC HEMOGLOBIN EQUIVALENT 37.1 pg (24-36); RETICULOCYTE % 1.8 % (0.5-1.5); WHITE BLOOD COUNT 20.5 10^3/uL (4.0-10.0)
[2016-12-22 13:57] LABS: VITAMIN B12 LEVEL > 2000 PG/ML (247-911)
[2016-12-22 13:58] LABS: ALBUMIN 2.9 GM/DL (3.2-5.2); ALBUMIN/GLOBULIN RATIO 0.71 (1.00-1.93); ALKALINE PHOSPHATASE 109 U/L (45-117); ALT/SGPT 40 U/L (12-78); ANION GAP 7 MEQ/L (8-16); AST/SGOT 28 U/L (15-37); BILIRUBIN,TOTAL 0.5 MG/DL (0.2-1.0); BLOOD UREA NITROGEN 30 MG/DL (7-18); CALCIUM LEVEL 9.3 MG/DL (8.8-10.2); CARBON DIOXIDE LEVEL 32 MEQ/L (21-32); CHLORIDE LEVEL 102 MEQ/L (98-107); CREATININE FOR GFR 0.99 MG/DL (0.55-1.02); FERRITIN 137 NG/ML (8-252); FOLATE > 24.0 NG/ML (>5.4); GLOMERULAR FILTRATION RATE 57.9 (>39); GLUCOSE, FASTING 109 MG/DL (83-110); PERCENT SATURATION 43.2 % (13.2-45.0); POTASSIUM SERUM 4.5 MEQ/L (3.5-5.1); SODIUM LEVEL 141 MEQ/L (136-145); TOTAL IRON BINDING CAPACITY 303 UG/DL (250-450)
[2016-12-24 00:06] LABS: FREE KAPPA LIGHT CHAINS SERUM 39.5 mg/L (3.3-19.4); KAPPA/LAMBDA RATIO SERUM 1.27 (0.26-1.65)
== END ==
LOC: M SFHCADAM 09:47
PROVIDERS: ATTEND Family Medicine
DX: D64.9 Anemia, unspecified (principal); R63.6 Underweight
CPT/HCPCS: 80053; 82607; 82728; 82746; 83550; 83883; 85027; 85046; G0463

== ENCOUNTER → 2017-01-18 | Outpatient (CLI) | payer MEDICARE ==
--- NOTE | 2017-01-18 09:24 | REPMRS ---
Patient History The patient states she has not had a clinical breast exam in over a year. Patient is postmenopausal. Family history of colorectal cancer in mother at age 50 or over. Digital Woman Screen Mammo: January 18, 2017 - Exam #: [id number] Bilateral CC and MLO view(s) were taken. Technologist: Carin Torres, Technologist Prior study comparison: January 15, 2016, digital woman screen mammo performed at [facility] to [facility]. January 14, 2015, digital woman screen mammo performed at [facility] to [facility]. FINDINGS: There are scattered fibroglandular densities. There has been no change in the appearance of the mammogram from the prior studies. There is a mild amount of residual fibroglandular tissue which is fairly symmetric. There is no interval development of dominant mass, architectural distortion, or clustered microcalcification suggestive of malignancy. ASSESSMENT: BI-RADS/ACR category 1 mammogram. Negative. Recommendation Routine screening mammogram in 1 year (for women over age 40). This mammogram was interpreted with the aid of an FDA-approved computer-aided dectection system. Electronically Signed By: Vitor Machado MD 01/18/17 [id number]
== END ==
LOC: M WHC 07:37
PROVIDERS: ATTEND Family Medicine
DX: Z12.31 Encounter for screening mammogram for malignant neoplasm of breast (principal)

== ENCOUNTER → 2017-03-10 | Outpatient (REF) | payer MEDICARE | LOC: M SFHCPLAZ 18:24 | DX: R30.0 Dysuria (principal) | CPT/HCPCS: 87086 ==

== ENCOUNTER → 2017-04-01 | Outpatient (REF) | payer MEDICARE | LOC: M LAB REF 11:41 | DX: J47.1 Bronchiectasis with (acute) exacerbation (principal) | CPT/HCPCS: 87184; 87205 ==

== ENCOUNTER → 2017-05-31 | Outpatient (REF) | payer MEDICARE ==
[2017-05-31 12:02] LABS: HEMATOCRIT 33.9 % (36.0-47.0); HEMOGLOBIN 10.5 g/dl (12.0-15.5); MEAN CORPUSCULAR HEMOGLOBIN 28.2 pg (27.0-33.0); MEAN CORPUSCULAR VOLUME 90.9 fl (80.0-96.0); PLATELET COUNT, AUTOMATED 181 10^3/uL (150-450); RED BLOOD COUNT 3.73 10^6/uL (4.00-5.40); RED CELL DISTRIBUTION WIDTH 14.9 % (11.5-14.5); RETIC HEMOGLOBIN EQUIVALENT 31.4 pg (24-36); RETICULOCYTE # 45.9 10^9/L (17-77); RETICULOCYTE % 1.2 % (0.5-1.5); WHITE BLOOD COUNT 14.7 10^3/uL (4.0-10.0)
[2017-05-31 12:17] LABS: ALBUMIN 2.9 GM/DL (3.2-5.2); ALBUMIN/GLOBULIN RATIO 0.57 (1.00-1.93); ALKALINE PHOSPHATASE 113 U/L (45-117); ALT/SGPT 18 U/L (12-78); ANION GAP 7 MEQ/L (8-16); AST/SGOT 25 U/L (7-37); BILIRUBIN,TOTAL 0.3 MG/DL (0.2-1.0); BLOOD UREA NITROGEN 18 MG/DL (7-18); CALCIUM LEVEL 9.1 MG/DL (8.8-10.2); CARBON DIOXIDE LEVEL 27 MEQ/L (21-32); CHLORIDE LEVEL 109 MEQ/L (98-107); CREATININE FOR GFR 1.32 MG/DL (0.55-1.30); FERRITIN 29 NG/ML (8-252); GLOMERULAR FILTRATION RATE 41.5 (>39); GLUCOSE, FASTING 106 MG/DL (70-100); IRON (FE) 25 UG/DL (50-170); PERCENT SATURATION 7.9 % (13.2-45.0); POTASSIUM SERUM 4.5 MEQ/L (3.5-5.1); SODIUM LEVEL 143 MEQ/L (136-145); TOTAL IRON BINDING CAPACITY 317 UG/DL (250-450)
== END ==
LOC: M SFHCPLAZ 09:03
DX: R30.0 Dysuria (principal); R19.7 Diarrhea, unspecified; Z86.2 Personal history of diseases of the blood and blood-forming organs and certain disorders involving the immune mechanism; N30.01 Acute cystitis with hematuria; J47.9 Bronchiectasis, uncomplicated
CPT/HCPCS: 83550

== ENCOUNTER 2017-07-12 11:50 | Emergency (ER) | payer MEDICARE ==
[2017-07-12 13:45] LABS: HEMATOCRIT 34.8 % (36.0-47.0); MEAN CORPUSCULAR HEMOGLOBIN 27.3 pg (27.0-33.0); MEAN CORPUSCULAR HGB CONC 31.6 g/dl (32.0-36.5); MEAN CORPUSCULAR VOLUME 86.4 fl (80.0-96.0); PLATELET COUNT, AUTOMATED 194 10^3/uL (150-450); RED BLOOD COUNT 4.03 10^6/uL (4.00-5.40); RED CELL DISTRIBUTION WIDTH 14.5 % (11.5-14.5); WHITE BLOOD COUNT 12.8 10^3/uL (4.0-10.0)
[2017-07-12 13:46] LABS: ADD MANUAL DIFFER YES; DIFF SLIDE NUMBER 296; POSITIVE MORPH POS FLAG
[2017-07-12 13:57] LABS: ATYPICAL LYMPH 6 % (0-5); BASOPHILS 1 % (0-4); LYMPHOCYTES 21 % (16-52); METAMYELOCYTES 1 % (0-0); MONOCYTES 6 % (0-8); MYELOCYTES 1 % (0-0); NEUTROPHILS 64 % (35-75)
[2017-07-12 13:58] LABS: ANISOCYTOSIS 1+; PLATELET ESTIMATE NORMAL (NORMAL)
[2017-07-12 13:59] LABS: INR 1.19; PROTHROMBIN TIME 15.3 SECONDS (12.4-14.5)
[2017-07-12 14:00] LABS: PARTIAL THROMBOPLASTIN TIME 38.2 SECONDS (26.8-37.9)
[2017-07-12 14:01] LABS: ALBUMIN 2.7 GM/DL (3.2-5.2); ALBUMIN/GLOBULIN RATIO 0.47 (1.00-1.93); ALKALINE PHOSPHATASE 87 U/L (45-117); ALT/SGPT 26 U/L (12-78); ANION GAP 6 MEQ/L (8-16); AST/SGOT 34 U/L (7-37); BILIRUBIN,DIRECT 0.1 MG/DL (0.0-0.2); BILIRUBIN,TOTAL 0.3 MG/DL (0.2-1.0); BLOOD UREA NITROGEN 23 MG/DL (7-18); CALCIUM LEVEL 9.8 MG/DL (8.8-10.2); CARBON DIOXIDE LEVEL 25 MEQ/L (21-32); CHLORIDE LEVEL 109 MEQ/L (98-107); CPK CREATINE PHOSPHOKINASE 59 U/L (26-192); CREATININE FOR GFR 1.42 MG/DL (0.55-1.30); GLOMERULAR FILTRATION RATE 38.2 (>39); GLUCOSE, FASTING 101 MG/DL (70-100); LIPASE 71 U/L (73-393); MAGNESIUM LEVEL 2.2 MG/DL (1.8-2.4); POTASSIUM SERUM 3.2 MEQ/L (3.5-5.1); SODIUM LEVEL 140 MEQ/L (136-145); TOTAL PROTEIN 8.4 GM/DL (6.4-8.2); TROPONIN I < 0.02 NG/ML (< 0.10)
[2017-07-12 14:06] LABS: CK-MB VALUE MASS 1.5 NG/ML (<3.6); FREE T4 1.58 NG/DL (0.76-1.46); MB/CK RELATIVE INDEX 2.54 (< OR =4)
[2017-07-12] MEDS: POTASSIUM CHLORIDE 10 MEQ SR TABLET PO (14:38)
== END 2017-07-12 16:15 | disposition home or self-care (01) ==
LOC: M ED 11:50
DX: R19.5 Other fecal abnormalities (principal); E87.6 Hypokalemia; J47.9 Bronchiectasis, uncomplicated; Z87.19 Personal history of other diseases of the digestive system; Z98.890 Other specified postprocedural states; Z88.8 Allergy status to other drugs, medicaments and biological substances; Z88.1 Allergy status to other antibiotic agents
CPT/HCPCS: 71046

== ENCOUNTER → 2017-07-19 | Outpatient (REF) | payer MEDICARE ==
[2017-07-19 14:02] LABS: BASO % 0.3 % (0.0-1.0); EOS # 0.3 10^3/uL (0.0-0.50); EOS % 2.3 % (0.0-3.0); HEMATOCRIT 35.9 % (36.0-47.0); HEMOGLOBIN 11.1 g/dl (12.0-15.5); IMMATURE GRANULOCYTE % 1.1 % (0-3.0); LYMPH # 3.6 10^3/uL (1.5-4.5); LYMPH % 24.7 % (24.0-44.0); MEAN CORPUSCULAR HEMOGLOBIN 27.3 pg (27.0-33.0); MEAN CORPUSCULAR HGB CONC 30.9 g/dl (32.0-36.5); MEAN CORPUSCULAR VOLUME 88.2 fl (80.0-96.0); MONO # 1.4 10^3/uL (0.0-0.8); MONO % 9.2 % (0.0-5.0); NEUTROPHILS # 9.2 10^3/uL (1.8-7.7); NEUTROPHILS % 62.4 % (36.0-66.0); PLATELET COUNT, AUTOMATED 216 10^3/uL (150-450); RED BLOOD COUNT 4.07 10^6/uL (4.00-5.40); RED CELL DISTRIBUTION WIDTH 14.7 % (11.5-14.5); WHITE BLOOD COUNT 14.7 10^3/uL (4.0-10.0)
[2017-07-19 14:21] LABS: ALBUMIN 2.6 GM/DL (3.2-5.2); ALBUMIN/GLOBULIN RATIO 0.46 (1.00-1.93); ALKALINE PHOSPHATASE 98 U/L (45-117); ALT/SGPT 20 U/L (12-78); ANION GAP 5 MEQ/L (8-16); AST/SGOT 30 U/L (7-37); BILIRUBIN,TOTAL 0.4 MG/DL (0.2-1.0); BLOOD UREA NITROGEN 16 MG/DL (7-18); CALCIUM LEVEL 8.8 MG/DL (8.8-10.2); CARBON DIOXIDE LEVEL 29 MEQ/L (21-32); CHLORIDE LEVEL 107 MEQ/L (98-107); CREATININE FOR GFR 1.09 MG/DL (0.55-1.30); GLOMERULAR FILTRATION RATE 51.8 (>39); GLUCOSE, FASTING 96 MG/DL (70-100); POTASSIUM SERUM 4.2 MEQ/L (3.5-5.1); SODIUM LEVEL 141 MEQ/L (136-145); TOTAL PROTEIN 8.2 GM/DL (6.4-8.2)
== END ==
LOC: M SFHCPLAZ 10:02
DX: K92.1 Melena (principal); E87.6 Hypokalemia
CPT/HCPCS: 80053

== ENCOUNTER 2017-08-30 16:58 | Emergency (ER) | payer MEDICARE ==
[2017-08-30] MEDS: ACETAMINOPHEN TAB 650MG DOSE (2X325MG) PO ×2 (18:17)
== END 2017-08-30 18:34 | disposition home or self-care (01) ==
LOC: M ED 16:58
DX: S82.831A Other fracture of upper and lower end of right fibula, initial encounter for closed fracture (principal); X50.1XXA Overexertion from prolonged static or awkward postures, initial encounter; Y92.480 Sidewalk as the place of occurrence of the external cause; I10 Essential (primary) hypertension; J44.9 Chronic obstructive pulmonary disease, unspecified; M19.90 Unspecified osteoarthritis, unspecified site; Z88.8 Allergy status to other drugs, medicaments and biological substances; Z88.2 Allergy status to sulfonamides; Z88.1 Allergy status to other antibiotic agents; Z79.899 Other long term (current) drug therapy
CPT/HCPCS: 99283

== ENCOUNTER → 2017-08-30 | Outpatient (CLI) | payer MEDICARE | LOC: M SMT 15:01 | DX: S82.831A Other fracture of upper and lower end of right fibula, initial encounter for closed fracture (principal); X58.XXXA Exposure to other specified factors, initial encounter; Y92.89 Other specified places as the place of occurrence of the external cause | CPT/HCPCS: 73610 ==

== ENCOUNTER → 2017-10-26 | Outpatient (REF) | payer MEDICARE ==
[2017-10-26 12:16] LABS: HEMATOCRIT 39.3 % (36.0-47.0); HEMOGLOBIN 12.2 g/dl (12.0-15.5); MEAN CORPUSCULAR HEMOGLOBIN 29.7 pg (27.0-33.0); MEAN CORPUSCULAR VOLUME 95.6 fl (80.0-96.0); PLATELET COUNT, AUTOMATED 157 10^3/uL (150-450); RED BLOOD COUNT 4.11 10^6/uL (4.00-5.40); RED CELL DISTRIBUTION WIDTH 14.2 % (11.5-14.5); WHITE BLOOD COUNT 8.6 10^3/uL (4.0-10.0)
== END ==
LOC: M SFHCPLAZ 09:02
DX: D50.0 Iron deficiency anemia secondary to blood loss (chronic) (principal)
CPT/HCPCS: 85027

== ENCOUNTER 2017-12-29 10:38 | Day surgery (SDC) | payer MEDICARE ==
[2017-12-29] MEDS: NS 1,000 ML IV (06:30)
== END 2017-12-29 13:35 | disposition home or self-care (01) ==
LOC: M OPP 13:35
DX: D12.5 Benign neoplasm of sigmoid colon (principal); D12.2 Benign neoplasm of ascending colon; K64.8 Other hemorrhoids; K57.30 Diverticulosis of large intestine without perforation or abscess without bleeding; R19.5 Other fecal abnormalities; K20.9 Esophagitis, unspecified; K25.9 Gastric ulcer, unspecified as acute or chronic, without hemorrhage or perforation; D50.9 Iron deficiency anemia, unspecified; K21.9 Gastro-esophageal reflux disease without esophagitis; M12.9 Arthropathy, unspecified; Z79.899 Other long term (current) drug therapy; Z78.0 Asymptomatic menopausal state; Z80.0 Family history of malignant neoplasm of digestive organs
CPT/HCPCS: 45385

== ENCOUNTER → 2018-01-11 | Outpatient (REF) | payer MEDICARE | LOC: M LAB REF 13:15 | DX: J47.9 Bronchiectasis, uncomplicated (principal) | CPT/HCPCS: 87184 ==

== ENCOUNTER → 2018-01-23 | Outpatient (CLI) | payer MEDICARE | LOC: M WHC 08:32 | DX: Z12.31 Encounter for screening mammogram for malignant neoplasm of breast (principal) | CPT/HCPCS: 77067 ==

== ENCOUNTER 2018-03-31 11:03 | Day surgery (SDC) | payer MEDICARE ==
[~2018-03-31] VITALS: Ht 152.4 cm; Wt 52.6 kg
[~2018-03-31 11:03] MED LIST changes: +ACET50CA PO; +BIMA01SOL; -CALC1TAB17 PO; +CALC1TAB97 PO; +CRAN400C PO; +LUTE40CA2 PO
[2018-03-31] MEDS ORDERED: PROPOFOL 200 MG/20 ML VIAL As Ordered ONE (11:42)
[2018-03-31] MEDS ORDERED: LIDOCAINE 2% INJ 100 MG/5 ML SDV (FOR ANES.) As Ordered ONE (11:42)
[2018-03-31] MEDS ORDERED: ASCO25TA PO (12:00)
[2018-03-31] MEDS: NS 1,000 ML IV ONE (12:12)
[2018-03-31] MEDS ORDERED: fentaNYL 100 MCG/2 ML INJECTION (J3010) As Ordered ONE (12:20)
--- NOTE | 2018-03-31 13:21 | ROOR ---
Patient Name: Ramon Miller Procedure Date: 03/31/2018 12:43 PM Date of : 1940 Age: 77 Room: [facility] Gender: Female Note Status: Finalized Procedure: Upper GI endoscopy Indications: Follow-up of gastric ulcer Providers: Stoney DREW MD Referring MD: Cindi Colin MD Requesting Provider: Medicines: Monitored Anesthesia Care Complications: No immediate complications. Procedure: Pre-Anesthesia Assessment: - The heart rate, respiratory rate, oxygen saturations, blood pressure, adequacy of pulmonary ventilation, and response to care were monitored throughout the procedure. The Endoscope was introduced through the mouth, and advanced to the second part of duodenum. The upper GI endoscopy was accomplished without difficulty. The patient tolerated the procedure well. Findings: The Z-line was variable and was found at the gastroesophageal junction. This was biopsied with a cold forceps for histology. A few medium-sized blebs were found in the lower third of the esophagus. Patchy mild inflammation was found in the gastric antrum. Biopsies were taken with a cold forceps for histology. A small hiatal hernia was present. The exam of the stomach was otherwise normal. The examined duodenum was normal. Impression: - Z-line variable, at the gastroesophageal junction. Biopsied. - A few confluent venous blebs were found in the lower half of the esophagus. - Nodular atrophic appearing antral mucosa, however no further ulceration. The gastric ulcer has healed. The antrum was biopsied. - Small hiatal hernia. - The stomach is otherwise normal. - Normal examined duodenum. Recommendation: - Telephone endoscopist for pathology results in 2 weeks. - Use Prilosec (omeprazole) 40 mg PO daily. Stoney Drew MD Stoney DREW MD 03/31/2018 1:20:26 PM This report has been signed electronically. Number of Addenda: 0 Note Initiated On: 03/31/2018 12:43 PM Estimated Blood Loss: Estimated blood loss: none.
[2018-03-31 13:30] VITALS: BP 145/84
== END 2018-03-31 13:41 | disposition home or self-care (01) ==
LOC: M OPP 11:03
PROVIDERS: ATTEND Internal Medicine Gastroenterology
DX: K25.9 Gastric ulcer, unspecified as acute or chronic, without hemorrhage or perforation (principal); K22.8 Other specified diseases of esophagus; K44.9 Diaphragmatic hernia without obstruction or gangrene; K31.89 Other diseases of stomach and duodenum
CPT/HCPCS: 43239; 88305; J3010

== ENCOUNTER 2018-09-10 19:17 | Inpatient (IN) | payer MEDICARE ==
[~2018-09-10] VITALS: Ht 152.4 cm; Wt 54.6 kg
[~2018-09-10 19:17] MED LIST changes: -CALC1TAB97 PO; -MIRA255PW PO; +OYST500T13 PO; +POLY1POW4 PO; +VITA1TAB23 PO
[2018-09-10 19:47] LABS: HEMATOCRIT 36.9 % (36.0-47.0); HEMOGLOBIN 11.9 g/dl (12.0-15.5); MEAN CORPUSCULAR HEMOGLOBIN 30.6 pg (27.0-33.0); MEAN CORPUSCULAR HGB CONC 32.2 g/dl (32.0-36.5); MEAN CORPUSCULAR VOLUME 94.9 fl (80.0-96.0); PLATELET COUNT, AUTOMATED 129 10^3/uL (150-450); RED BLOOD COUNT 3.89 10^6/uL (4.00-5.40)
--- NOTE | 2018-09-10 19:54 | REPVR ---
EXAM: CT Head Without Contrast EXAM DATE/TIME: 09/10/2018 7:29 PM CLINICAL HISTORY: 77 years old, female; Weakness, extremity; Additional info: Weakness/flattened L labiofacial fold TECHNIQUE: Imaging protocol: Axial computed tomography images of the head without contrast. Radiation optimization: All CT scans at this facility use at least one of these dose optimization techniques: automated exposure control; mA and/or kV adjustment per patient size (includes targeted exams where dose is matched to clinical indication); or iterative reconstruction. COMPARISON: No relevant prior studies available. FINDINGS: Brain: Global cerebral atrophy is consistent with patient's age. Decreased attenuation within the white matter tracts of both cerebral hemispheres is nonspecific but typically seen with small vessel disease/chronic white matter ischemic changes of aging. No CT scan evidence of acute stroke. No intracranial hemorrhage or mass effect. Ventricles: Unremarkable. No ventriculomegaly. Bones/joints: Unremarkable. No acute fracture. Sinuses: Mild mucosal thickening of the sphenoid sinuses. No air fluid level identified within the paranasal sinuses to indicate acute sinusitis. Mastoid air cells: Visualized mastoid air cells are well aerated. No mastoid effusion. Soft tissues: Unremarkable. Vasculature: Atherosclerosis of the cavernous carotid arteries. IMPRESSION: No acute abnormality. Electronically signed by: Adonis Thomas On 09/10/2018 19:54:00 PM
[2018-09-10 19:56] LABS: INR 1.28; PROTHROMBIN TIME 15.7 SECONDS (11.8-14.0)
[2018-09-10 19:57] LABS: PARTIAL THROMBOPLASTIN TIME 33.2 SECONDS (25.0-38.4)
[2018-09-10] MEDS ORDERED: IPRATROPIUM 0.5MG/ALBUTEROL 2.5MG INH SOL UD 3ML (DUONEB)(J7620) NEB ONE (20:15)
[2018-09-10] MEDS ORDERED: ACETAMINOPHEN TAB 650MG DOSE (2X325MG) PO ONE (20:15)
[2018-09-10] MEDS ORDERED: NS 1,000 ML IV ONE (20:15)
[2018-09-10] MEDS ORDERED: ACETAMINOPHEN 325 MG TAB As Ordered ONE (20:19)
[2018-09-10 20:27] LABS: ALBUMIN 3.1 GM/DL (3.2-5.2); ALT/SGPT 28 U/L (12-78); BILIRUBIN,TOTAL 0.5 MG/DL (0.2-1.0); BLOOD UREA NITROGEN 14 MG/DL (7-18); CALCIUM LEVEL 8.7 MG/DL (8.8-10.2); CARBON DIOXIDE LEVEL 26 MEQ/L (21-32); CHLORIDE LEVEL 101 MEQ/L (98-107); CK-MB VALUE MASS < 1.0 NG/ML (<3.6); CPK CREATINE PHOSPHOKINASE 70 U/L (26-192); CREATININE FOR GFR 1.29 MG/DL (0.55-1.30); GLOMERULAR FILTRATION RATE 42.6 (>39); GLUCOSE, FASTING 122 MG/DL (70-100); MB/CK RELATIVE INDEX 1.43 (< OR =4); POTASSIUM SERUM 4.1 MEQ/L (3.5-5.1); SODIUM LEVEL 136 MEQ/L (136-145); TOTAL PROTEIN 7.8 GM/DL (6.4-8.2); TROPONIN I < 0.02 NG/ML (< 0.10)
[2018-09-10 20:31] LABS: BASO % 0.2 % (0.0-1.0); EOS % 0.3 % (0.0-3.0); LYMPH # 1.3 10^3/uL (1.5-4.5); LYMPH % 8.4 % (24.0-44.0); MONO % 6.3 % (0.0-5.0); NEUTROPHILS # 12.7 10^3/uL (1.8-7.7); NEUTROPHILS % 84.1 % (36.0-66.0)
[2018-09-10] MEDS ORDERED: PATIENT COMMENTS (21:48)
[2018-09-10] MEDS ORDERED: PIPERACILLIN/TAZOBACTAM SOD 3.375 GM in D5W MINI-BAG PLUS 50 ML IV ONE (22:30)
[2018-09-10] MEDS ORDERED: TOBRAMYCIN SULF 100 MG in D5W 50 ML IV ONE (22:30)
[2018-09-10 22:40] LABS: APPEARANCE, URINE CLOUDY (CLEAR); BACTERIA, URINE AUTO 1+ (NEGATIVE); BILIRUBIN, URINE AUTO NEGATIVE (NEGATIVE); BLOOD, URINE BLOOD NEGATIVE (NEGATIVE); COLOR, URINE AMBER (YELLOW); GLUCOSE, URINE (UA) AUTO NEGATIVE (NEGATIVE); KETONE, URINE AUTO NEGATIVE (NEGATIVE); LEUKOCYTE ESTERASE, URINE AUTO 3+ (NEGATIVE); MUCUS, URINE SMALL (NEGATIVE); NITRITE, URINE AUTO NEGATIVE (NEGATIVE); PROTEIN, URINE AUTO 1+ mg/dL (NEGATIVE); RBC, URINE AUTO 0 /HPF (0-3); SPECIFIC GRAVITY URINE AUTO 1.013 (1.002-1.035); SQUAMOUS EPITHELIAL CELL UR AU 9 /HPF (0-6); UROBILINOGEN, URINE AUTO 0.2 mg/dL (0.0-2.0); WBC, URINE AUTO TNTC /HPF (0-3)
[2018-09-10 23:00] LABS: VENOUS PARTIAL PRESSURE CO2 36.6 mmHg (38.0-50.0); VENOUS PARTIAL PRESSURE O2 104.7 mmHg (30.0-50.0); VENOUS PH 7.434 UNITS (7.330-7.430); VENOUS STANDARD HCO3 24.5 MEQ/L; VENOUS TOTAL CO2 25.1 MEQ/L (24.0-28.0)
[2018-09-11] MEDS ORDERED: ACETAMINOPHEN TAB 650MG DOSE (2X325MG) PO PRN
[2018-09-11] MEDS ORDERED: IPRATROPIUM 0.5MG/ALBUTEROL 2.5MG INH SOL UD 3ML (DUONEB)(J7620) NEB PRN
[2018-09-11] MEDS: IPRATROPIUM 0.5MG/ALBUTEROL 2.5MG INH SOL UD 3ML (DUONEB)(J7620) NEB SCH ×6 (00:17→20:00)
--- NOTE | 2018-09-11 01:23 | HPEPDOC ---
General Date of Admission Sep 10, 2018 at 23:54 Date of Service: Sep 10, 2018 Chief Complaint The patient is a 77-year-old female admitted with a reason for visit of Bronchiectasis. History of Present Illness 77-year-old female with past medical history of long-term secondhand smoke exposure, and cystic bronchiectasis with heavy Pseudomonas colonization presented to the ER with a chief complaint of fevers, chills, increased cough with greenish sputum production over the last several days. In addition, the patient states that she has been feeling generalized malaise and weakness. She denies any recent travel, sick contacts. She also denied any complaints of chest pain, palpitations, abdominal pain, orthopnea, lower extremity swelling, PND, or any nausea/vomiting/diarrhea. The patient will be admitted to the hospitalist service for further evaluation and management. 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, FAMILY MEMBERS UNSURE OF HER MEDICATIONS AND WHAT IF ANYTHING WAS TAKEN TODAY Allergies Coded Allergies: latanoprost (Verified Allergy, Severe, 09/10/18) levofloxacin (Verified Allergy, Severe, 09/10/18) bimatoprost (Verified Allergy, Intermediate, EYE REDNESS, 09/10/18) cephalexin (Verified Allergy, Intermediate, 09/10/18) dorzolamide (Verified Allergy, Intermediate, CONGESTED,COUGH, 09/10/18) timolol (Verified Allergy, Intermediate, CONGESTED,COUGH, 09/10/18) brimonidine (Verified Allergy, Unknown, 09/10/18) doxycycline (Verified Allergy, Unknown, 09/10/18) travoprost (Verified Adverse Reaction, Severe, EYE PAIN HEART RACING, 09/10/18) Sulfa (Sulfonamide Antibiotics) (Verified Adverse Reaction, Intermediate, GI ISSUES, 09/10/18) diclofenac (Verified Adverse Reaction, Intermediate, VOMITS, 09/10/18) moxifloxacin (Verified Adverse Reaction, Mild, DIARRHEA, 09/10/18) Past Medical History Medical History As noted in HPI. Surgical History COLONOSCOPY - ADENOMATOUS POLYP 2011 COLONOSCOPY - ADENOMATOUS POLYP - REINDL 05/2014 BILATERAL CATARACT EXTRACTION LEFT LASER EYE 10/21/2016 Social History * Smoker: Denies Alcohol: Denies Drugs: denies Review of Systems Other systems 10 point review of systems negative unless otherwise specified in HPI. Physical Examination General Exam: Positive: Alert, Cooperative, No Acute Distress ENT Exam: Positive: Atraumatic; Negative: Mucous membr. moist/pink Neck Exam: Negative: JVD Chest Exam: Positive: Diminished (diminished breath sounds diffusely), Other (coarse breath sounds with crackles noted all along the left lung on auscultation) Heart Exam: Positive: Tachycardic, Normal S1, Normal S2 Telemetry: Positive: Sinus Abdomen Exam: Positive: Soft; Negative: Tenderness Extremity Exam: Negative: Tenderness, Swelling Psych Exam: Positive: Oriented x 3 Vital Signs Vital Signs Date Time Temp Pulse Resp B/P (MAP) Pulse Ox O2 Delivery O2 Flow Rate FiO2 09/11/18 01:00 99 16 143/65 (91) 98 09/10/18 23:52 98.2 09/10/18 19:18 Room Air Laboratory Data Labs 24H Laboratory Tests 2 09/10/18 19:34: Immature Granulocyte % (Auto) 0.7, White Blood Count 15.0H, Red Blood Count 3.89L, Hemoglobin 11.9L, Hematocrit 36.9, Mean Corpuscular Volume 94.9, Mean Corpuscular Hemoglobin 30.6, Mean Corpuscular Hemoglobin Concent 32.2, Red Cell Distribution Width 13.2, Platelet Count 129L, Neutrophils (%) (Auto) 84.1H, Lym phocytes (%) (Auto) 8.4L, Monocytes (%) (Auto) 6.3H, Eosinophils (%) (Auto) 0.3, Basophils (%) (Auto) 0.2, Neutrophils # (Auto) 12.7H, Lymphocytes # (Auto) 1.3L, Monocytes # (Auto) 1.0H, Eosinophils # (Auto) 0.0, Basophils # (Auto) 0.0, Nucleated Red Blood Cells % (auto) 0.0, Prothrombin Time 15.7H, Prothromb Time International Ratio 1.28, Activated Partial Thromboplast Time 33.2, Anion Gap 9, Glomerular Filtration Rate 42.6, Blood Urea Nitrogen 14, Creatinine 1.29, Sodium Level 136, Potassium Level 4.1, Chloride Level 101, Carbon Dioxide Level 26, Calcium Level 8.7L, Aspartate Amino Transf (AST/SGOT) 45H, Alanine Aminotransferase (ALT/SGPT) 28, Total Creatine Kinase 70, Alkaline Phosphatase 95, Total Bilirubin 0.5, Total Protein 7.8, Albumin 3.1L, Creatine Kinase MB < 1.0, Creatine Kinase MB Relative Index 1.43, Troponin I < 0.02, Albumin/Globulin Ratio 0.66L 09/10/18 20:15: Lactic Acid Level 2.0 09/10/18 22:14: Urine Appearance CLOUDYH, Urine Color BERNA, Urine pH 5.0, Urine Specific [place] 1.013, Urine Protein 1+H, Urine Glucose (UA) NEGATIVE, Urine Ketones NEGATIVE, Urine Urobilinogen 0.2, Urine Bilirubin NEGATIVE, Urine Leukocyte Esterase 3+H, Urine Blood NEGATIVE, Urine Nitrite NEGATIVE, Urine WBC (Auto) TNTCH, Urine RBC (Auto) 0, Urine Hyaline Casts (Auto) 0, Urine Bacteria (Auto) 1+H, Urine Squamous Epithelial Cells 9, Urine Mucus (Auto) SMALL, Urine Sperm (Auto) 09/10/18 22:51: Blood Gas Bicarbonate Standard 24.5, Venous Blood pH 7.434H, Venous Blood Partial Pressure CO2 36.6L, Venous Blood Partial Pressure O2 104.7H, Venous Blood Total Carbon Dioxide 25.1, Venous Blood HCO3 24.0, Venous Blood Oxygen Saturation 98.0H, Venous Blood Base Excess 0.0 CBC/BMP Laboratory Tests 09/10/18 19:34 Red Blood Count 3.89 L, Mean Corpuscular Volume 94.9, Mean Corpuscular Hemoglobin 30.6, Mean Corpuscular Hemoglobin Concent 32.2, Red Cell Distribution Width 13.2, Neutrophils (%) (Auto) 84.1 H, Lymphocytes (%) (Auto) 8.4 L, Monocytes (%) (Auto) 6.3 H, Eosinophils (%) (Auto) 0.3, Basophils (%) (Auto) 0.2, Neutrophils # (Auto) 12.7 H, Lymphocytes # (Auto) 1.3 L, Monocytes # (Auto) 1.0 H, Eosinophils # (Auto) 0.0, Basophils # (Auto) 0.0, Calcium Level 8.7 L, Aspartate Amino Transf (AST/SGOT) 45 H, Alanine Aminotransferase (ALT/SGPT) 28, Total Creatine Kinase 70, Alkaline Phosphatase 95, Total Bilirubin 0.5, Total Protein 7.8, Albumin 3.1 L Microbiology Microbiology 09/10/18 Blood Culture, Received Pending 09/10/18 Blood Culture, Received Pending Plan / VTE VTE Prophylaxis Ordered?: Yes Plan Plan Community Acquired Pneumonia in a patient with Hx of Cystic bronchiectasis Chest x-ray noted, official report pending Patient noted to be febrile, with an elevated white blood cell count on admission Cultures ordered We will start the patient on Zosyn based on her history of pseudomonas colonization Patient otherwise hemodynamically stable. Serial nebulizer therapy as ordered We will continue to monitor the patient's clinical condition. GERD Continue PPI DVT prophylaxis Lovenox subcutaneous NIA GRAY MD Sep 11, 2018 01:23
[2018-09-11] MEDS: PIPERACILLIN/TAZOBACTAM SOD 3.375 GM in D5W MINI-BAG PLUS 50 ML IV SCH ×4 (05:17→22:25)
[2018-09-11] MEDS: ENOXAPARIN 30 MG/0.3 ML SYR (J1650) SC SCH (05:18)
[2018-09-11 06:13] LABS: HEMATOCRIT 30.3 % (36.0-47.0); MEAN CORPUSCULAR HEMOGLOBIN 30.9 pg (27.0-33.0); MEAN CORPUSCULAR HGB CONC 32.7 g/dl (32.0-36.5); MEAN CORPUSCULAR VOLUME 94.7 fl (80.0-96.0); WHITE BLOOD COUNT 20.8 10^3/uL (4.0-10.0)
[2018-09-11 06:34] LABS: HEMOGLOBIN 9.9 g/dl (12.0-15.5); PLATELET COUNT, AUTOMATED 93 10^3/uL (150-450)
[2018-09-11 06:37] LABS: CALCIUM LEVEL 7.9 MG/DL (8.8-10.2); CREATININE FOR GFR 1.27 MG/DL (0.55-1.30); GLOMERULAR FILTRATION RATE 43.3 (>39); MAGNESIUM LEVEL 1.6 MG/DL (1.8-2.4); POTASSIUM SERUM 3.5 MEQ/L (3.5-5.1)
--- NOTE | 2018-09-11 07:41 | REP ---
Portable chest, 08:24 p.m., single AP view with the patient semi upright: Comparisons are the chest CT dated 12/12/2016 and a PA and lateral chest dated 07/12/2017. The patient has known bilateral chronic cystic bronchiectasis. Addition there is diffuse scarring of the entire left lung with decreased lung volume throughout the left hemithorax. These findings are unchanged. The No acute focal infiltrates are identified. The no pleural effusions are identified on this single view. No masses are identified, however left lung mass could easily be obscured. Impression: Chronic cystic bronchiectasis. Chronic diffuse parenchymal scarring throughout the left lung with a item loss in the left hemithorax. No change from the comparison study. Electronically Signed by Vitor Thakkar MD 09/11/2018 07:33 A
[2018-09-11] MEDS: OMEPRAZOLE 20 MG CAP PO SCH (09:55)
[2018-09-11] MEDS: CALCIUM/VITAMIN D 500 MG TAB PO SCH (09:55)
[2018-09-11] MEDS: MULTIVITAMINS/MINERALS THERAP 1 TAB PO SCH (09:55)
--- NOTE | 2018-09-11 10:35 | IPN ---
DATE OF SERVICE: 09/11/2018 PRIMARY CARE PROVIDER: Cindi Colin MD HISTORY: Ramon Miller is a patient of Dr. Colin's admitted to the hospitalist service with exacerbation of bronchiectasis and suspected pneumonia. She has had heavy Pseudomonas in her sputum in the past. She is followed by Dr. Leo of [facility]. I reviewed her office record. She has a history of gallstone pancreatitis 06/10, long-term secondhand smoke exposure. Spirometry at [facility] 06/14 showed restrictive pattern, FEV1 1.8, FEV1/FVC 79%. She has had adenomatous colon polyps removed in the past. She has a long list of medicine allergies, which complicates her care. PHYSICAL EXAMINATION: 135/75, pulse of 100, respiratory rate 16, 98% oxygen (O2) saturation. Alert, conversant, pleasant, in no distress. Able to speak in full sentences without any difficulty. HEENT: Unremarkable. Lungs: Scattered rhonchi. No wheezes. Heart: Regular rate and rhythm. Abdomen: Soft, nontender. No peripheral edema. LABORATORIES: White count is 20.8, hemoglobin 9.9, platelets 93. Sodium 138, potassium 3.5, BUN 15, creatinine 1.2 which is the baseline, GFR is 43. Blood cultures are pending. IMPRESSION: 1. Exacerbation of bronchiectasis. She is being covered for Pseudomonas with Zosyn. White count is a little high and will keep an eye on this. She is not receiving any steroids to account for this. Clinically, she feels better. 2. Anemia/thrombocytopenia. I have ordered daily laboratories to trend this. 3. Chronic kidney disease stage III. Renal function is currently stable. Edited 09/11/2018 aml
[2018-09-11 20:00] VITALS: BP 149/65
[2018-09-11 23:59] VITALS: BP 101/53
[2018-09-12] MEDS: IPRATROPIUM 0.5MG/ALBUTEROL 2.5MG INH SOL UD 3ML (DUONEB)(J7620) NEB SCH ×6 (02:49→23:07)
[2018-09-12 04:00] VITALS: BP 114/55
[2018-09-12] MEDS: PIPERACILLIN/TAZOBACTAM SOD 3.375 GM in D5W MINI-BAG PLUS 50 ML IV SCH ×4 (05:04→23:20)
[2018-09-12] MEDS: ENOXAPARIN 30 MG/0.3 ML SYR (J1650) SC SCH (05:32)
[2018-09-12 06:10] LABS: HEMATOCRIT 30.5 % (36.0-47.0); HEMOGLOBIN 9.8 g/dl (12.0-15.5); MEAN CORPUSCULAR HEMOGLOBIN 30.1 pg (27.0-33.0); MEAN CORPUSCULAR HGB CONC 32.1 g/dl (32.0-36.5); MEAN CORPUSCULAR VOLUME 93.6 fl (80.0-96.0); RED BLOOD COUNT 3.26 10^6/uL (4.00-5.40); WHITE BLOOD COUNT 8.2 10^3/uL (4.0-10.0)
[2018-09-12 06:14] LABS: PLATELET COUNT, AUTOMATED 79 10^3/uL (150-450)
[2018-09-12 06:39] LABS: CALCIUM LEVEL 8.1 MG/DL (8.8-10.2); CREATININE FOR GFR 1.41 MG/DL (0.55-1.30); GLOMERULAR FILTRATION RATE 38.4 (>39); POTASSIUM SERUM 3.8 MEQ/L (3.5-5.1)
[2018-09-12 08:24] VITALS: BP 100/44
[2018-09-12] MEDS: MULTIVITAMINS/MINERALS THERAP 1 TAB PO SCH (08:42)
[2018-09-12] MEDS: CALCIUM/VITAMIN D 500 MG TAB PO SCH (08:42)
[2018-09-12] MEDS: OMEPRAZOLE 20 MG CAP PO SCH (08:42)
--- NOTE | 2018-09-12 09:40 | IPN ---
DATE: 09/12/2018 Ramon is seen on progressive care unit (PCU). She is feeling better. Better air movement, less shortness of breath. Her procalcitonin level returned elevated suggesting bacterial infection. PHYSICAL EXAMINATION: Vital signs stable. Oxygen saturation 97%, afebrile. General Appearance: Alert, conversant. Visiting with her , speaking in full sentences. HEENT: Unremarkable. Lungs: Scattered rhonchi, wheezes. Better air movement than yesterday. Heart: Regular rhythm. Abdomen: Soft, nontender. No peripheral edema. LABS: Blood cultures are showing gram negative rods on two cultures and sputum culture is pending. Urine on admission did show too many white cells to count, 1+ bacteria. Unfortunately, no urine culture was done. White count 8.2, hemoglobin 9.8, platelets 79. Sodium 139, potassium 3.8, BUN 6, creatinine 1.4, glucose 96. IMPRESSION: 1. Exacerbation of bronchiectasis: Clinically, she is responding. Her white count is down, being covered for Pseudomonas with Zosyn. We will continue this. 2. Thrombocytopenia: I will stop her Lovenox. We will use mechanical sequential compression devices (SCDs)/thromboembolic deterrent stockings (TEDS). Daily CBC has been ordered. 3. Gram negative bacteremia: Etiology is unknown. Suspect urinary source. Unfortunately, no urine culture done on admission. Continue the Zosyn. See if the sample from the lab can be cultured. 4. Chronic kidney disease: Renal function is mildly deteriorated probably from the urinary tract infection (UTI). I have ordered a renal ultrasound. The patient can be transferred out of PCU up to general medical floor without telemetry. Her telemetry has been stable.
--- NOTE | 2018-09-12 12:18 | REP ---
Renal ultrasound for chronic renal disease and acute renal failure: The right kidney measures 9.2 x 3.94 point centimeters. Left kidney measures 928 x 4.6 x 5.1 cm. The kidneys are in the low normal size range. The renal cortices are hyperechoic bilaterally. This is consistent with medical renal disease. There is no hydronephrosis on the right on the left. There are no solid or cystic renal masses. There is a 7.2 mm echogenic focus in the left renal pelvis compatible with a nonobstructive calculus. Bladder: The bladder is incompletely distended and cannot be further evaluated. Impression: Nonobstructive left renal calculus. Kidneys are in the low normal size range. Otherwise, negative renal ultrasound. Electronically Signed by Vitor Thakkar MD 09/12/2018 12:09 P
[2018-09-12 16:00] VITALS: BP 104/52
[2018-09-12 20:00] VITALS: BP 116/55
[2018-09-13] VITALS: BP 114/54
[2018-09-13] MEDS: IPRATROPIUM 0.5MG/ALBUTEROL 2.5MG INH SOL UD 3ML (DUONEB)(J7620) NEB SCH ×7 (00:20→23:50)
[2018-09-13 04:00] VITALS: BP 121/57
[2018-09-13] MEDS: PIPERACILLIN/TAZOBACTAM SOD 3.375 GM in D5W MINI-BAG PLUS 50 ML IV SCH ×4 (04:48→23:57)
[2018-09-13 06:10] LABS: HEMATOCRIT 29.7 % (36.0-47.0); HEMOGLOBIN 9.3 g/dl (12.0-15.5); MEAN CORPUSCULAR HEMOGLOBIN 29.6 pg (27.0-33.0); MEAN CORPUSCULAR HGB CONC 31.3 g/dl (32.0-36.5); MEAN CORPUSCULAR VOLUME 94.6 fl (80.0-96.0); RED BLOOD COUNT 3.14 10^6/uL (4.00-5.40); WHITE BLOOD COUNT 5.9 10^3/uL (4.0-10.0)
[2018-09-13 06:18] LABS: PLATELET COUNT, AUTOMATED 77 10^3/uL (150-450)
[2018-09-13 06:31] LABS: CALCIUM LEVEL 7.9 MG/DL (8.8-10.2); CREATININE FOR GFR 1.38 MG/DL (0.55-1.30); GLOMERULAR FILTRATION RATE 39.4 (>39); MAGNESIUM LEVEL 2.1 MG/DL (1.8-2.4); POTASSIUM SERUM 3.3 MEQ/L (3.5-5.1)
[2018-09-13 08:00] VITALS: BP 120/58
[2018-09-13] MEDS: CALCIUM/VITAMIN D 500 MG TAB PO SCH (09:00)
[2018-09-13] MEDS: OMEPRAZOLE 20 MG CAP PO SCH (09:00)
[2018-09-13] MEDS: MULTIVITAMINS/MINERALS THERAP 1 TAB PO SCH (09:00)
--- NOTE | 2018-09-13 09:43 | IPN ---
DATE OF SERVICE: 09/13/2018 Ramon is having some greenish watery diarrhea. Getting a Clostridium (C) difficile on this. Her blood cultures grew out gram negative rods. Unfortunately, she did not have a urine culture done on admission. She did have a urine sample on admission, highly suspicious for a urinary tract infection (UTI). I suspect that was the source of the E. coli, though she does have some gram negative rods in her sputum, as well. In any case, she is on Zosyn which would cover it clinically. She is improving. Less cough. Less short of breath. She is not febrile, and vital signs are stable. PHYSICAL EXAMINATION: Afebrile, 121/57, oxygen (O2) saturation 94%. General appearance: Frail, elderly, resting in bed. Lungs have rhonchi, particularly at the left base. Heart: Regular rate and rhythm. Abdomen: Soft, nontender. No costovertebral angle (CVA) tenderness. No peripheral edema. LABORATORIES: White count is down to 5.9, hemoglobin 9.3, platelets 77. Potassium 3.3, creatinine 1.38. IMPRESSION: 1. Diarrhea. C. difficile pending. 2. Gram negative bacteremia, urinary versus pulmonary source. It should be covered by her Zosyn. 3. Bronchiectasis, responding to prescribed therapy. 4. Thrombocytopenia. Platelets still low, but they are leveling off. These have been followed daily. 5. Chronic kidney disease. Renal function is mildly decreased. I suspect this is from a UTI. Renal function has mildly improved. Renal ultrasound showed no obstruction.
[2018-09-13 11:58] LABS: CLOSTRIDIUM DIFFICILE PCR POSITIVE (NEGATIVE)
[2018-09-13] MEDS: VANCOMYCIN ORAL SOL 250MG/5ML ORAL SYRINGE PO SCH ×3 (14:29→23:57)
[2018-09-13 16:00] VITALS: BP 120/50
[2018-09-13 20:00] VITALS: BP 112/50
[2018-09-13 23:59] VITALS: BP 116/52
[2018-09-14] MEDS: IPRATROPIUM 0.5MG/ALBUTEROL 2.5MG INH SOL UD 3ML (DUONEB)(J7620) NEB SCH ×6 (03:07→23:46)
[2018-09-14 04:00] VITALS: BP 110/50
[2018-09-14 05:41] LABS: HEMATOCRIT 29.4 % (36.0-47.0); HEMOGLOBIN 9.4 g/dl (12.0-15.5); MEAN CORPUSCULAR HEMOGLOBIN 29.5 pg (27.0-33.0); MEAN CORPUSCULAR VOLUME 92.2 fl (80.0-96.0); RED BLOOD COUNT 3.19 10^6/uL (4.00-5.40); WHITE BLOOD COUNT 8.7 10^3/uL (4.0-10.0)
[2018-09-14 05:43] LABS: PLATELET COUNT, AUTOMATED 99 10^3/uL (150-450)
[2018-09-14 05:59] LABS: CREATININE FOR GFR 1.36 MG/DL (0.55-1.30); MAGNESIUM LEVEL 2.2 MG/DL (1.8-2.4); POTASSIUM SERUM 3.4 MEQ/L (3.5-5.1)
[2018-09-14] MEDS: PIPERACILLIN/TAZOBACTAM SOD 3.375 GM in D5W MINI-BAG PLUS 50 ML IV SCH (06:06)
[2018-09-14] MEDS: VANCOMYCIN ORAL SOL 250MG/5ML ORAL SYRINGE PO SCH ×4 (06:06→23:24)
[2018-09-14] MEDS: MULTIVITAMINS/MINERALS THERAP 1 TAB PO SCH (07:48)
[2018-09-14] MEDS: CALCIUM/VITAMIN D 500 MG TAB PO SCH (07:48)
[2018-09-14] MEDS: OMEPRAZOLE 20 MG CAP PO SCH (07:49)
[2018-09-14 08:00] VITALS: BP 116/50
--- NOTE | 2018-09-14 10:39 | IPN ---
DATE: 09/14/2018 Ramon is seen in PCU awaiting transfer to the floor. She has exacerbation of bronchiectasis secondary to presumed bronchitis as well as C. difficile colitis. Gram negative bacteremia, urinary versus pulmonary source. Clinically she feels better. Her appetite is good. Her diarrhea is getting slightly better. PHYSICAL EXAMINATION: Afebrile. Vital signs stable, 116/50. General appearance: Rested, she looks healthier. HEENT unremarkable. Lungs few rhonchi, better air movement. Heart regular rhythm. Abdomen soft, nontender. No CVA tenderness. No peripheral edema. LABS: Potassium 3.4, creatinine is stable at 1.36, white count 8.7, platelets 99. C. difficile by PCR was positive, it was negative for NAP1. IMPRESSION: 1. Exacerbation of bronchiectasis from presumed bronchitis. Clinically she has responded to prescribed antibiotic. 2. E. coli bacteremia from presumed urinary source. Urine was uncultured on admission. Urine culture that is reported was obtained after the patient had already started antibiotics, so probably sterilized by the antibiotic. I am changing her from Zosyn to cefazolin to narrow her antibiotic spectrum, particularly in the face of the C. difficile. 3. C. difficile colitis on p.o. vancomycin. Stop the Zosyn, change to cefazolin, discontinue vancomycin intravenously. 4. Chronic kidney disease, GFR is stable. 5. Thrombocytopenia. Platelets are recovering.
[2018-09-14] MEDS: CEPHALEXIN 500 MG CAP PO SCH ×2 (13:27→20:46)
[2018-09-14 16:00] VITALS: BP 106/40
[2018-09-14 18:13] VITALS: BP 111/60
[2018-09-14 22:00] VITALS: BP 111/54
[2018-09-15] MEDS: IPRATROPIUM 0.5MG/ALBUTEROL 2.5MG INH SOL UD 3ML (DUONEB)(J7620) NEB SCH ×3 (04:09→11:09)
[2018-09-15 06:00] VITALS: BP 102/53
[2018-09-15] MEDS: VANCOMYCIN ORAL SOL 250MG/5ML ORAL SYRINGE PO SCH ×2 (06:31→12:36)
[2018-09-15 06:54] LABS: HEMATOCRIT 29.7 % (36.0-47.0); HEMOGLOBIN 9.4 g/dl (12.0-15.5); MEAN CORPUSCULAR HGB CONC 31.6 g/dl (32.0-36.5); MEAN CORPUSCULAR VOLUME 94.9 fl (80.0-96.0); PLATELET COUNT, AUTOMATED 104 10^3/uL (150-450); RED BLOOD COUNT 3.13 10^6/uL (4.00-5.40); WHITE BLOOD COUNT 8.4 10^3/uL (4.0-10.0)
[2018-09-15 07:13] LABS: CREATININE FOR GFR 1.31 MG/DL (0.55-1.30); GLOMERULAR FILTRATION RATE 41.8 (>39); MAGNESIUM LEVEL 2.1 MG/DL (1.8-2.4); POTASSIUM SERUM 3.5 MEQ/L (3.5-5.1)
[2018-09-15] MEDS ORDERED: FAMOTIDINE 20 MG TAB PO SCH (09:00)
[2018-09-15] MEDS: CEPHALEXIN 500 MG CAP PO SCH (09:11)
[2018-09-15] MEDS: CALCIUM/VITAMIN D 500 MG TAB PO SCH (09:11)
[2018-09-15] MEDS: MULTIVITAMINS/MINERALS THERAP 1 TAB PO SCH (09:11)
[2018-09-15] MEDS ORDERED: CEPH500C PO (12:33)
[2018-09-15] MEDS ORDERED: VANC1CAP7 PO (12:33)
--- NOTE | 2018-09-15 13:34 | DSES ---
DATE OF ADMISSION: 09/10/2018 DATE OF DISCHARGE: PRIMARY CARE PROVIDER: Dr. Cindi Colin PRINCIPAL DIAGNOSIS: Exacerbation of bronchiectasis from presume bronchitis. SECONDARY DIAGNOSES: 1. Escherichia (E) coli bacteremia, question source, probably urinary. 2. Clostridium (C.) difficile colitis. 3. Chronic kidney disease stage III. 4. Thrombocytopenia, probably from infection. HISTORY: Ramon Miller was admitted to the hospital with exacerbation of bronchiectasis, suspected pneumonia with history of heavy Pseudomonas sputum in the past, followed by Dr. [facility]. HOSPITAL COURSE: The patient was admitted to a medical bed and initially placed on Zosyn. Daily laboratories were ordered. She had blood cultures done that grew out E coli on two separate cultures, sensitive to Ancef. She grew out a few Pseudomonas that is probably colonization. She developed diarrhea on the Zosyn and had C difficile, NAP1 negative in the stool. She was started on vancomycin with prompt resolution of the diarrhea. On the daily of discharge, she has passed her home safety evaluation. Blood pressure is 102/53, pulse oximetry 95% on 2 liters, which is her baseline. She is alert, conversant and in no distress. Lungs were essentially clear. Heart has regular rhythm. Abdomen is soft, nondistended, no masses, nontender. No peripheral edema. LABORATORIES: Sodium 140, potassium 3.5, BUN 15, creatinine 1.3, glucose 95, white count was 20.8 on admission and is 8.4 now, hemoglobin 9.4, platelets 104. Procalcitonin level was elevated. DISPOSITION: The patient is discharged to home in improved and stable condition. MEDICATIONS ON DISCHARGE: - albuterol solution four times a day as needed - vitamin D and calcium - omeprazole 40 mg daily, which we will actually discontinue on discharge due to the C difficile colitis. New medicines are: - Keflex 500 mg twice a day for 7 days - vancomycin 250 mg four times a day for 10 days Discharge was discussed at care rounds today.
== END 2018-09-15 15:14 | disposition home or self-care (01) | DRG 191 ==
LOC: M ED 19:17 → M ED INP 23:54 → M PCU 09-11 18:15 → M MSPAV 09-14 17:59
PROVIDERS: ADMIT Internal Medicine; ATTEND Family Medicine
DX: J47.1 Bronchiectasis with (acute) exacerbation (principal); R78.81 Bacteremia; N39.0 Urinary tract infection, site not specified; A04.72 Enterocolitis due to Clostridium difficile, not specified as recurrent; J47.0 Bronchiectasis with acute lower respiratory infection; J18.9 Pneumonia, unspecified organism; D64.9 Anemia, unspecified; R19.7 Diarrhea, unspecified; N18.3 Chronic kidney disease, stage 3 (moderate); B96.5 Pseudomonas (aeruginosa) (mallei) (pseudomallei) as the cause of diseases classified elsewhere; K21.9 Gastro-esophageal reflux disease without esophagitis; B96.20 Unspecified Escherichia coli [E. coli] as the cause of diseases classified elsewhere; Z77.22 Contact with and (suspected) exposure to environmental tobacco smoke (acute) (chronic); Z79.899 Other long term (current) drug therapy; Z88.2 Allergy status to sulfonamides; D69.6 Thrombocytopenia, unspecified; Z88.1 Allergy status to other antibiotic agents; Z88.8 Allergy status to other drugs, medicaments and biological substances; Z86.010 Personal history of colon polyps

== ENCOUNTER → 2018-09-22 | Outpatient (REF) | payer MEDICARE ==
[~2018-09-22] MED LIST changes: +CEPH500C PO; +PATIENT COMMENTS; +VANC1CAP7 PO
[2018-09-22 14:09] LABS: BASO # 0.1 10^3/uL (0.0-0.2); BASO % 0.5 % (0.0-1.0); EOS # 0.4 10^3/uL (0.0-0.50); EOS % 3.4 % (0.0-3.0); HEMATOCRIT 35.2 % (36.0-47.0); HEMOGLOBIN 11.1 g/dl (12.0-15.5); LYMPH # 2.8 10^3/uL (1.5-4.5); LYMPH % 21.5 % (24.0-44.0); MEAN CORPUSCULAR HEMOGLOBIN 29.6 pg (27.0-33.0); MEAN CORPUSCULAR HGB CONC 31.5 g/dl (32.0-36.5); MEAN CORPUSCULAR VOLUME 93.9 fl (80.0-96.0); MONO % 7.6 % (0.0-5.0); NEUTROPHILS # 8.6 10^3/uL (1.8-7.7); NEUTROPHILS % 66.4 % (36.0-66.0); PLATELET COUNT, AUTOMATED 248 10^3/uL (150-450); RED BLOOD COUNT 3.75 10^6/uL (4.00-5.40)
[2018-09-22 14:26] LABS: CALCIUM LEVEL 9.8 MG/DL (8.8-10.2); CREATININE FOR GFR 1.15 MG/DL (0.55-1.30); GLOMERULAR FILTRATION RATE 48.6 (>39); POTASSIUM SERUM 4.1 MEQ/L (3.5-5.1)
== END ==
LOC: M SFHCPLAZ 11:58
PROVIDERS: ATTEND Family Medicine
DX: D64.9 Anemia, unspecified (principal); A04.72 Enterocolitis due to Clostridium difficile, not specified as recurrent

== ENCOUNTER → 2018-10-23 | Outpatient (REF) | payer MEDICARE ==
[2018-10-23 10:58] LABS: BASO % 0.6 % (0.0-1.0); EOS # 0.3 10^3/uL (0.0-0.50); EOS % 4.9 % (0.0-3.0); HEMATOCRIT 35.8 % (36.0-47.0); HEMOGLOBIN 11.1 g/dl (12.0-15.5); LYMPH # 2.2 10^3/uL (1.5-4.5); LYMPH % 32.1 % (24.0-44.0); MEAN CORPUSCULAR HEMOGLOBIN 29.1 pg (27.0-33.0); MONO # 0.7 10^3/uL (0.0-0.8); MONO % 10.2 % (0.0-5.0); NEUTROPHILS # 3.6 10^3/uL (1.8-7.7); NEUTROPHILS % 51.9 % (36.0-66.0); PLATELET COUNT, AUTOMATED 166 10^3/uL (150-450); RED BLOOD COUNT 3.81 10^6/uL (4.00-5.40)
[2018-10-23 11:28] LABS: CHOLESTEROL RISK RATIO 2.071 (<5); PERCENT SATURATION 16.9 % (13.2-45.0)
[2018-10-23 11:34] LABS: TOTAL 25(OH) VITAMIN D 58.8 NG/ML (30.0-100.0)
== END ==
LOC: M SFHCPLAZ 08:14
PROVIDERS: ATTEND Family Medicine
DX: D50.0 Iron deficiency anemia secondary to blood loss (chronic) (principal); Z13.220 Encounter for screening for lipoid disorders; E55.9 Vitamin D deficiency, unspecified

== ENCOUNTER 2018-12-05 20:29 | Inpatient (IN) | payer MEDICARE ==
[~2018-12-05] VITALS: Ht 152.4 cm; Wt 54.5 kg
[~2018-12-05 20:29] MED LIST changes: +OMEP40CA97 PO
[2018-12-05] MEDS: DOCUSATE SODIUM 100 MG CAP PO SCH (21:00)
[2018-12-05] MEDS: IPRATROPIUM 0.5MG/ALBUTEROL 2.5MG INH SOL UD 3ML (DUONEB)(J7620) NEB PRN ×3 (22:51→23:50)
[2018-12-05 22:56] LABS: BASO % 0.3 % (0.0-1.0); EOS # 0.2 10^3/uL (0.0-0.5); EOS % 1.6 % (0.0-3.0); HEMATOCRIT 28.4 % (36.0-47.0); LYMPH # 1.3 10^3/uL (1.5-5.0); LYMPH % 13.2 % (24.0-44.0); MEAN CORPUSCULAR HEMOGLOBIN 30.1 pg (27.0-33.0); MEAN CORPUSCULAR HGB CONC 31.7 g/dl (32.0-36.5); MONO # 0.9 10^3/uL (0.0-0.8); MONO % 8.6 % (0.0-5.0); NEUTROPHILS # 7.6 10^3/uL (1.5-8.5); PLATELET COUNT, AUTOMATED 120 10^3/uL (150-450); RED BLOOD COUNT 2.99 10^6/uL (4.00-5.40)
[2018-12-05 23:31] LABS: ALBUMIN 2.6 GM/DL (3.2-5.2); ALT/SGPT 34 U/L (12-78); BILIRUBIN,DIRECT 0.2 MG/DL (0.0-0.2); BILIRUBIN,TOTAL 0.5 MG/DL (0.2-1.0); BLOOD UREA NITROGEN 23 MG/DL (7-18); CALCIUM LEVEL 8.9 MG/DL (8.8-10.2); CARBON DIOXIDE LEVEL 28 MEQ/L (21-32); CHLORIDE LEVEL 104 MEQ/L (98-107); CK-MB VALUE MASS < 1.0 NG/ML (<3.6); CPK CREATINE PHOSPHOKINASE 47 U/L (26-192); CREATININE FOR GFR 1.26 MG/DL (0.55-1.30); GLOMERULAR FILTRATION RATE 43.7 (>39); GLUCOSE, FASTING 105 MG/DL (70-100); LIPASE 55 U/L (73-393); MB/CK RELATIVE INDEX 2.13 (< OR =4); NT-PRO BNP 631 PG/ML (<450); POTASSIUM SERUM 4.2 MEQ/L (3.5-5.1); SODIUM LEVEL 139 MEQ/L (136-145); TOTAL PROTEIN 6.9 GM/DL (6.4-8.2); TROPONIN I < 0.02 NG/ML (< 0.10)
[2018-12-06] VITALS (16 sets, daily range): BP systolic 80–137; BP diastolic 40–63
--- NOTE | 2018-12-06 00:52 | REPVR ---
PROCEDURE INFORMATION: Exam: US Duplex Lower Extremity Veins Exam date and time: 12/06/2018 12:31 AM Clinical history: 78 years old, female; Other: Weakness, calf pain; Additional info: Leg weakness, calf pain TECHNIQUE: Imaging protocol: Real-time duplex ultrasound of the Lower Extremities with 2-D perrin scale, color Doppler flow and spectral waveform analysis with image documentation. Complete exam focused on the bilateral lower extremity veins. COMPARISON: No relevant prior studies available. FINDINGS: Right deep veins: Unremarkable. The common femoral, femoral, proximal profunda femoral and popliteal veins are patent without thrombus. Normal Doppler waveforms. Normal compressibility and/or augmentation response. Right superficial veins: Saphenofemoral junction is patent without thrombus. Left deep veins: Unremarkable. The common femoral, femoral, proximal profunda femoral and popliteal veins are patent without thrombus. Normal Doppler waveforms. Normal compressibility and/or augmentation response. Left superficial veins: Saphenofemoral junction is patent without thrombus. Soft tissues: Unremarkable. IMPRESSION: No sonographic evidence of deep vein thrombosis. Electronically signed by: Alex Herzog On 12/06/2018 00:51:47 AM
[2018-12-06] MEDS ORDERED: MOM 30ML SUSPENSION UDC PO PRN (02:15)
[2018-12-06] MEDS ORDERED: ACETAMINOPHEN TAB 650MG DOSE (2X325MG) PO PRN (02:15)
[2018-12-06] MEDS ORDERED: MAALOX 30 ML SUSP *UDC PO PRN (02:15)
--- NOTE | 2018-12-06 02:31 | HPEPDOC ---
General Date of Admission Dec 06, 2018 at 02:15 Date of Service: Dec 06, 2018 Primary Care Physician: MOHINI COLNI MD Attending Physician: KRISSY GODDARD MD Chief Complaint The patient is a 78-year-old female admitted with a reason for visit of Bronchiectasis, Weakness Generalized. Source: Patient, Family Exam Limitations: No limitations Timing/Duration: Day(s) (1 day) Severity: Moderate Associated Symptoms: Shortness of breath (, shortness of breath), Other (. Generalized weakness) History of Present Illness This is a 78 years old white female with past medical history of long-term secondhand smoke smoking exposure cystic bronchiectasis heavy Pseudomonas colonization. Escherichia coli bacteremia, C. difficile colitis, chronic kidney disease stage III and thrombocytopenia in the past, presented to ER with chief complaints of generalized weakness, unable to get out of chair and family was unable to help her, which is progressively getting worse and also complaining of increasing shortness of breath. Patient sees Dr. Chris for pulmonary follow-up in Dr. Colin for family practice follow-up Home Medications Scheduled Albuterol Sulf (Albuterol Sulfate) 2.5 Mg/3 Ml Nebu, 1 INH INH BID, (Reported) Ascorbic Acid (Vitamin C) 250 Mg Tab, 250 MG PO TID, (Reported) Calcium Carbonate/Vitamin D3 (Oyster Shell 500-Vit D3 200 Tb) 1 Tab Tab, 1 TAB PO DAILY, (Reported) Multivitamins (Thera M Plus Tablet) 1 Tab Tab, 1 TAB PO DAILY, (Reported) Allergies Coded Allergies: latanoprost (Verified Allergy, Severe, 12/05/18) levofloxacin (Verified Allergy, Severe, 12/05/18) bimatoprost (Verified Allergy, Intermediate, EYE REDNESS, 12/05/18) cephalexin (Verified Allergy, Intermediate, 12/05/18) dorzolamide (Verified Allergy, Intermediate, CONGESTED,COUGH, 12/05/18) timolol (Verified Allergy, Intermediate, CONGESTED,COUGH, 12/05/18) brimonidine (Verified Allergy, Unknown, 12/05/18) doxycycline (Verified Allergy, Unknown, 12/05/18) travoprost (Verified Adverse Reaction, Severe, EYE PAIN HEART RACING, 12/05/18) Sulfa (Sulfonamide Antibiotics) (Verified Adverse Reaction, Intermediate, GI ISSUES, 12/05/18) diclofenac (Verified Adverse Reaction, Intermediate, VOMITS, 12/05/18) moxifloxacin (Verified Adverse Reaction, Mild, DIARRHEA, 12/05/18) Past Medical History Medical History Secondhand smoking. Cystic bronchiectasis, Pseudomonas colonization. Escherichia coli bacteremia, Clostridium difficile deficit colitis. CK D, stage III, and thrombocytopenia Surgical History Polypectomy in the past, bilateral cataract extraction and left laser surgery of the eye Family History Significant Family History: No pertinent family hx Social History * Smoker: other (secondhand smoking) Alcohol: Denies Drugs: denies A-FIB/CHADSVASC A-FIB History Current/History of A-Fib/PAF?: No Review of Systems Constitutional: Reports: Weakness Eyes: Denies: Pain, Vision change, Conjunctivae inflammation, Eyelid inflammation, Redness, Other ENT: Denies: Head Aches, Ear Pain, Dysphagia, Sinus Congestion, Post Nasal Drip, Sore Throat, Epistaxis, Other Symptoms Skin: Denies: Rash, Lesions, Jaundice, Bruising, Itching, Dry, Breakdown, Nail Changes, Other Pulmonary: Reports: Dyspnea Cardiovascular: Denies: Chest Pain, Palpitations, Orthopnea, Paroxysmal Noc. Dyspnea, Edema, Lt Headedness, Other Symptoms Gastrointestinal: Denies: Nausea, Vomiting, Abdominal Pain, Diarrhea, Constipation, Melena, Hematochezia, Other Symptoms Genitourinary: Denies: Dysuria, Frequency, Incontinence, Hematuria, Retention, Other Symptoms Hematologic: Denies: Bruising, Bleeding Excessively, Petecchia, Purpura, Enlarged Lymph Nodes, Other Hematologic Endocrine: Denies: Polydipsia, Polyphagia, Polyuria, Heat Intolerance, Cold Intolerance, Other Endocrine Sx Musculoskeletal: Denies: Neck Pain, Back Pain, Shoulder Pain, Arm Pain, Hand Pain, Leg Pain, Foot Pain, Joint Pain, Muscle Pain, Spasms, Other Symptoms Neurological: Denies: Weakness, Numbness, Incoordination, Change in speech, Confusion, Seizures, Other Symptoms Psych: Denies: Mood Normal, Anxiety, Depression, Memory Issues, Thoughts of Self Harm, Anger, Thoughts of Harming Other, Other Psych Physical Examination General Exam: Positive: Alert, No Acute Distress Eye Exam: Positive: PERRLA, Conjunctiva & lids normal ENT Exam: Positive: Atraumatic, Mucous membr. moist/pink Neck Exam: Positive: Supple Chest Exam: Positive: Rhonchi, Wheezing (. Bilateral expiratory wheezing and rhonchi is audible) Heart Exam: Positive: Rate Normal, Normal S1, Normal S2 Abdomen Exam: Positive: Normal bowel sounds, Soft Extremity Exam: Positive: Normal pulses Skin Exam: Positive: Nl turgor and temperature Neuro Exam: Positive: Strength at 5/5 X4 ext, Sensation Intact Psych Exam: Positive: Mood NL, Oriented x 3 Vital Signs Vital Signs Date Time Temp Pulse Resp B/P (MAP) Pulse Ox O2 Delivery O2 Flow Rate FiO2 12/06/18 02:00 124 105/58 (74) 93 Room Air 12/06/18 01:30 30 12/05/18 20:30 99.5 Laboratory Data Labs 24H Laboratory Tests 2 12/05/18 22:41: Immature Granulocyte % (Auto) 0.3, White Blood Count 10.0, Red Blood Count 2.99L, Hemoglobin 9.0L, Hematocrit 28.4L, Mean Corpuscular Volume 95.0, Mean Corpuscular Hemoglobin 30.1, Mean Corpuscular Hemoglobin Concent 31.7L, Red Cell Distribution Width 14.8H, Platelet Count 120L, Neutrophils (%) (Auto) 76.0H, Lymphocytes (%) (Auto) 13.2L, Monocytes (%) (Auto) 8.6H, Eosinophils (%) (Auto) 1.6, Basophils (%) (Auto) 0.3, Neutrophils # (Auto) 7.6, Lymphocytes # (Auto) 1.3L, Monocytes # (Auto) 0.9H, Eosinophils # (Auto) 0.2, Basophils # (Auto) 0.0, Nucleated Red Blood Cells % (auto) 0.0, Urine Color YELLOW, Urine Appearance CLOUDYH, Urine pH 7.0, Urine Specific [place] 1.014, Urine Protein NEGATIVE, Urine Glucose (UA) NEGATIVE, Urine Ketones NEGATIVE, Urine Blood 1+H, Urine Nitrite NEGATIVE, Urine Bilirubin NEGATIVE, Urine Urobilinogen 0.2, Urine Leukocyte Esterase 3+H, Urine WBC (Auto) TNTCH, Urine RBC (Auto) 129H, Urine Hyaline Casts (Auto) 2, Urine Bacteria (Auto) 1+H, Urine Squamous Epithelial Cells 1, Urine Mucus (Auto) SMALL, Urine Sperm (Auto) , Anion Gap 7L, Glomerular Filtration Rate 43.7, Lactic Acid Level 1.8, Calcium Level 8.9, Aspartate Amino Transf (AST/SGOT) 42H, Alanine Aminotransferase (ALT/SGPT) 34, Alkaline Phosphatase 104, Total Bilirubin 0.5, Direct Bilirubin 0.2, Total Creatine Kinase 47, Creatine Kinase MB < 1.0, Creatine Kinase MB Relative Index 2.13, Troponin I < 0.02, IB-Vij-P-Type Natriuretic Peptide 631H, Total Protein 6.9, Albumin 2.6L, Albumin/Globulin Ratio 0.60L, Lipase 55L CBC/BMP Laboratory Tests 12/05/18 22:41 Red Blood Count 2.99 L, Mean Corpuscular Volume 95.0, Mean Corpuscular Hemoglobin 30.1, Mean Corpuscular Hemoglobin Concent 31.7 L, Red Cell Distribution Width 14.8 H, Neutrophils (%) (Auto) 76.0 H, Lymphocytes (%) (Auto) 13.2 L, Monocytes (%) (Auto) 8.6 H, Eosinophils (%) (Auto) 1.6, Basophils (%) (Auto) 0.3, Neutrophils # (Auto) 7.6, Lymphocytes # (Auto) 1.3 L, Monocytes # (Auto) 0.9 H, Eosinophils # (Auto) 0.2, Basophils # (Auto) 0.0 Microbiology Microbiology 12/05/18 Urine Culture, Received Pending Problems (1) Bronchiectasis Status: Chronic Problem Text: 78 years old white female with past medical history of cystic bronchiectasis secondary to secondhand smoking. Follows up with Dr. Chris as an outpatient, came in with increasing shortness of breath and generalized weakness. , Most likely exacerbation of bronchiectasis Admit to [facility] floor DuoNeb every 6 hours and every 2 hours when necessary Prednisone 30 mg by mouth daily Oxygen support DVT prophylaxis with heparin Diet regular Activity as tolerated (2) Weakness generalized Status: Acute Problem Text: Generalized weakness most likely secondary to deconditioning As patient has a sedentary lifestyle and does not move from her chair Physical therapy consultation had been requested Patient might need a placement in subacute rehabilitation facility for strength training and endurance Continue home meds (3) UTI (urinary tract infection) Status: Acute Problem Text: UA is consistent with possible UTI. Patient has multiple allergies to antibiotics but Ancef was used last time for her Escherichia coli infection and she tolerated very well. Will restart again Ancef 1 g IV every 8 hour Urine cultures have been requested again change antibiotics as per culture and sensitivity report Oral hydration has been recommended Plan / VTE VTE Prophylaxis Ordered?: Yes KRISSY GODDARD MD Dec 06, 2018 02:31
[2018-12-06] MEDS ORDERED: ceFAZolin SOD 1 GM in D5W MINI-BAG PLUS 50 ML IV SCH (04:00)
[2018-12-06] MEDS: IPRATROPIUM 0.5MG/ALBUTEROL 2.5MG INH SOL UD 3ML (DUONEB)(J7620) NEB PRN ×2 (05:47→13:16)
--- NOTE | 2018-12-06 07:10 | ECGEPIP ---
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
--- NOTE | 2018-12-06 07:57 | REP ---
PA and lateral chest: Comparisons are the portable chest of [birth year]10/[address] chest of 12/12/2016. The the patient has known chronic advanced cystic bronchiectasis. The findings in the left lung are more severe than right with superimposed chronic parenchymal scarring resulting in left lung volume loss. All of these findings are unchanged. There are no superimposed acute cardiopulmonary findings. Cardiac size cannot be determined. The cardiac margins are obscured. The the no pleural effusions are identified. Impression: No acute cardiopulmonary findings. Chronic findings of advanced cystic bronchiectasis. In the left lung. There is severe fibrosis, superimposed on the bronchiectasis resulting in diffuse volume loss. Electronically Signed by Vitor Thakkar MD 12/06/2018 07:48 A
[2018-12-06] MEDS ORDERED: IPRATROPIUM 0.5MG/ALBUTEROL 2.5MG INH SOL UD 3ML (DUONEB)(J7620) NEB SCH (08:00)
[2018-12-06] MEDS: TOBRAMYCIN INHAL 300 MG/5 ML SOLN INH SCH ×2 (08:00→20:27)
[2018-12-06] MEDS: ASCORBIC ACID 250 MG TAB PO SCH ×3 (08:44→20:11)
[2018-12-06] MEDS: DOCUSATE SODIUM 100 MG CAP PO SCH ×2 (08:45→20:12)
[2018-12-06] MEDS: HEPARIN SOD (PORCINE) 5000 UNITS/ML VIAL SC SCH ×2 (08:47→20:11)
[2018-12-06] MEDS ORDERED: predniSONE 10 MG TAB PO SCH (09:00)
[2018-12-06] MEDS ORDERED: MULTIVITAMINS/MINERALS THERAP 1 TAB PO SCH (09:00)
[2018-12-06] MEDS: PIPERACILLIN/TAZOBACTAM SOD 3.375 GM in D5W MINI-BAG PLUS 50 ML IV SCH ×2 (13:31→18:25)
--- NOTE | 2018-12-06 13:35 | IPNPDOC ---
Subjective Date Seen The patient was seen on 12/06/18. Subjective Chief Complaint/HPI Having low grade fever. Says feels very weak , no strength in legs . uses a crutch on one side and holds on to the wall on the other side while walking at home but now has been unable to do this for the past 1 month getting weaker and weaker and yesterday her legs just gave way. Has increased sputum production for the past month, greenish and yellow in color. Denies any dysuria or frequency of urination. though does say that her lower abdomen hurts sometimes. Objective Physical Examination General Exam: Positive: Alert, Cooperative, No Acute Distress Eye Exam: Positive: PERRLA, Conjunctiva & lids normal ENT Exam: Positive: Atraumatic, Mucous membr. moist/pink Neck Exam: Positive: Supple Chest Exam: Positive: Rales, Rhonchi, Wheezing (left greater than right), Other (coarse breath sounds with added sounds more on the left) Heart Exam: Positive: Rate Normal, Regular Rhythm, Normal S1, Normal S2; Negative: Murmurs, Rubs Abdomen Exam: Positive: Normal bowel sounds, Soft; Negative: Tenderness, Hepatospenomegaly Extremity Exam: Positive: Normal pulses; Negative: Clubbing, Cyanosis, Edema Skin Exam: Positive: Nl turgor and temperature Neuro Exam: Positive: Strength at 5/5 X4 ext, Sensation Intact Psych Exam: Positive: Mood NL, Oriented x 3 Assessment /Plan Assessment Acute bronchitis and exacerbation of bronchiectasis with possible pneumonitis Known to have psueudomonas in sputum sputum cultures have been sent, blood cultures have been sent will give zosyn IV and tobramycin inhalation albuterol, prednisone or antiinflammatory effect. acapella. Generalized weakness and deconditioning PT and PT. IRON DEFICIENCY ANEMIA now no issues. continue supplementation HX C. DIFF IN 08/2018 no issues now. GLAUCOMA CHRONIC KIDNEY DISEASE STAGE 3 stable. UA dirty asymptomatic Urine culture sent will get a bladder scan to see if there is any urinary retention patient on broad spectrum antibiotics. Plan/VTE VTE Prophylaxis Ordered?: Yes VS, I&O, 24H, Fishbone Vital Signs/I&O Vital Signs Date Time Temp Pulse Resp B/P (MAP) Pulse Ox O2 Delivery O2 Flow Rate FiO2 12/06/18 06:00 100.3 117 37 124/59 (80) 93 12/06/18 02:45 Room Air I&O- Last 24 Hours up to 6 AM 12/06/18 05:59 Intake Total 50 ml Output Total 50 ml Balance 0 ml Laboratory Data 24H LABS Laboratory Tests 2 12/05/18 22:41: Immature Granulocyte % (Auto) 0.3, White Blood Count 10.0, Red Blood Count 2.99L, Hemoglobin 9.0L, Hematocrit 28.4L, Mean Corpuscular Volume 95.0, Mean Corpuscular Hemoglobin 30.1, Mean Corpuscular Hemoglobin Concent 31.7L, Red Cell Distribution Width 14.8H, Platelet Count 120L, Neutrophils (%) (Auto) 76.0H, L ymphocytes (%) (Auto) 13.2L, Monocytes (%) (Auto) 8.6H, Eosinophils (%) (Auto) 1.6, Basophils (%) (Auto) 0.3, Neutrophils # (Auto) 7.6, Lymphocytes # (Auto) 1.3L, Monocytes # (Auto) 0.9H, Eosinophils # (Auto) 0.2, Basophils # (Auto) 0.0, Nucleated Red Blood Cells % (auto) 0.0, Urine Color YELLOW, Urine Appearance CLOUDYH, Urine pH 7.0, Urine Specific [place] 1.014, Urine Protein NEGATIVE, Urine Glucose (UA) NEGATIVE, Urine Ketones NEGATIVE, Urine Blood 1+H, Urine Nitrite NEGATIVE, Urine Bilirubin NEGATIVE, Urine Urobilinogen 0.2, Urine Leukocyte Esterase 3+H, Urine WBC (Auto) TNTCH, Urine RBC (Auto) 129H, Urine Hyaline Casts (Auto) 2, Urine Bacteria (Auto) 1+H, Urine Squamous Epithelial Cells 1, Urine Mucus (Auto) SMALL, Urine Sperm (Auto) , Anion Gap 7L, Glomerular Filtration Rate 43.7, Lactic Acid Level 1.8, Calcium Level 8.9, Aspartate Amino Transf (AST/SGOT) 42H, Alanine Aminotransferase (ALT/SGPT) 34, Alkaline Phosphatase 104, Total Bilirubin 0.5, Direct Bilirubin 0.2, Total Creatine Kinase 47, Creatine Kinase MB < 1.0, Creatine Kinase MB Relative Index 2.13, Troponin I < 0.02, BE-Iwc-C-Type Natriuretic Peptide 631H, Total Protein 6.9, Albumin 2.6L, Albumin/Globulin Ratio 0.60L, Lipase 55L CBC/BMP Laboratory Tests 12/05/18 22:41 Red Blood Count 2.99 L, Mean Corpuscular Volume 95.0, Mean Corpuscular Hemoglobin 30.1, Mean Corpuscular Hemoglobin Concent 31.7 L, Red Cell Distribution Width 14.8 H, Neutrophils (%) (Auto) 76.0 H, Lymphocytes (%) (Auto) 13.2 L, Monocytes (%) (Auto) 8.6 H, Eosinophils (%) (Auto) 1.6, Basophils (%) (Auto) 0.3, Neutrophils # (Auto) 7.6, Lymphocytes # (Auto) 1.3 L, Monocytes # (Auto) 0.9 H, Eosinophils # (Auto) 0.2, Basophils # (Auto) 0.0 Microbiology Microbiology 12/06/18 Gram Stain, Received Pending 12/06/18 Sputum Culture, Received Pending 12/06/18 Blood Culture, Received Pending 12/06/18 Blood Culture, Received Pending 12/05/18 Urine Culture, Received Pending NOE HU MD Dec 06, 2018 12:25
[2018-12-06] MEDS ORDERED: SODIUM CHLORIDE 0.9% 1000ML IV ONE (15:45)
[2018-12-06] MEDS ORDERED: NS 1,000 ML IV SCH (20:45)
[2018-12-06 21:04] LABS: HEMATOCRIT 23.9 % (36.0-47.0); HEMOGLOBIN 7.4 g/dl (12.0-15.5); MEAN CORPUSCULAR HEMOGLOBIN 30.6 pg (27.0-33.0); MEAN CORPUSCULAR VOLUME 98.8 fl (80.0-96.0); RED BLOOD COUNT 2.42 10^6/uL (4.00-5.40); WHITE BLOOD COUNT 11.9 10^3/uL (4.0-10.0)
[2018-12-06] MEDS: PANTOPRAZOLE SODIUM 40 MG in D5W 50 ML IV SCH (21:04)
[2018-12-06 21:14] LABS: PLATELET COUNT, AUTOMATED 112 10^3/uL (150-450)
[2018-12-06 21:30] LABS: ALBUMIN 2.2 GM/DL (3.2-5.2); BILIRUBIN,TOTAL 0.4 MG/DL (0.2-1.0); CALCIUM LEVEL 8.4 MG/DL (8.8-10.2); CREATININE FOR GFR 1.58 MG/DL (0.55-1.30); GLOMERULAR FILTRATION RATE 33.6 (>39); POTASSIUM SERUM 4.6 MEQ/L (3.5-5.1); TOTAL PROTEIN 6.1 GM/DL (6.4-8.2)
--- NOTE | 2018-12-06 21:34 | REPVR ---
PROCEDURE INFORMATION: Exam: XR Chest, 1 View Exam date and time: 12/06/2018 8:52 PM Clinical history: 78 years old, female; Condition or disease; Other: Bronchiectasis; Additional info: H/o bronchiectasis R/O pneumo TECHNIQUE: Imaging protocol: XR of the chest Views: 1 view. COMPARISON: CR Chest, 2 view PA, Lat 12/05/2018 11:07 PM FINDINGS: Lungs: Extensive opacity with volume loss in the left lung does not appear significantly changed. Emphysema and chronic interstitial changes in the right lung appears stable. No new infiltrates. Pleural space: Unremarkable. No pleural effusion. No pneumothorax. Heart/Mediastinum: Not well visualized do to extensive pulmonary disease. Bones/joints: Unremarkable. IMPRESSION: Stable chest. No new abnormalities. Electronically signed by: Fransisco Ch On 12/06/2018 21:33:51 PM
[2018-12-06] MEDS ORDERED: ONDANSETRON 4MG/2ML VIAL (J2405) IV PRN (22:00)
[2018-12-06] MEDS ORDERED: ISOVUE-370 76% 100ML VIAL (Q9967) As Ordered ONE (22:21)
--- NOTE | 2018-12-06 22:59 | REPVR ---
PROCEDURE INFORMATION: Exam: CT Abdomen And Pelvis With Contrast Exam date and time: 12/06/2018 10:33 PM Clinical history: 78 years old, female; Abdominal pain; Generalized; Additional info: Ugib, abd pain TECHNIQUE: Imaging protocol: Computed tomography of the abdomen and pelvis with intravenous contrast. Radiation optimization: All CT scans at this facility use at least one of these dose optimization techniques: automated exposure control; mA and/or kV adjustment per patient size (includes targeted exams where dose is matched to clinical indication); or iterative reconstruction. Contrast material: ISOVUE 370; Contrast volume: 100 ml; Contrast route: IV; COMPARISON: RENAL US 09/12/2018 10:39 AM FINDINGS: Lungs: Extensive cystic changes in the left lung base. Bronchiectasis with interstitial and cystic changes on the right. Mediastinum: There is a small paraesophageal hiatal hernia. Liver: Normal. No mass. Gallbladder and bile ducts: There are calculi in the gallbladder. No signs of cholecystitis. Pancreas: Pancreas is grossly unremarkable without other inflammatory changes. Spleen: Normal. No splenomegaly. Adrenals: Normal. No mass. Kidneys and ureters: There are calyceal stones in the left kidney. No hydronephrosis. Normal right kidney. Stomach and bowel: Mild wall thickening in the gastric antrum and pylorus. Small bowel is unremarkable. There is mild wall thickening in the cecum and ascending colon. There is extensive colonic diverticulosis without evidence of diverticulitis. No bowel obstruction. Appendix: No evidence of appendicitis. Intraperitoneal space: Trace fluid in the pancreaticoduodenal groove. Vasculature: Unremarkable. No abdominal aortic aneurysm. Lymph nodes: Unremarkable. No enlarged lymph nodes. Bladder: Mild wall thickening in the right posterior lateral urinary bladder. Reproductive: Unremarkable as visualized. Bones/joints: Unremarkable. No acute fracture. Soft tissues: Unremarkable. IMPRESSION: 1. Mild wall thickening in the distal stomach suggesting mild gastritis. Additional mild wall thickening in the right colon may be due to colitis. 2. Colonic diverticulosis. 3. Trace fluid in the pancreaticoduodenal groove may be secondary to gastritis. No inflammatory changes in the adjacent pancreas. Correlation for signs of pancreatitis is suggested. 4. Mild wall thickening in the urinary bladder on the right suggesting cystitis. 5. Cholelithiasis without signs of acute cholecystitis. 6. Nephrolithiasis without obstructing stones or hydronephrosis. 7. Small paraesophageal hiatal hernia. Electronically signed by: Fransisco Ch On 12/06/2018 22:58:53 PM
[2018-12-06] MEDS ORDERED: PROMETHAZINE INJ 25 MG/ML VIAL (J2550) IV ONE (23:45)
[2018-12-07] VITALS (43 sets, daily range): BP systolic 80–107; BP diastolic 43–55
[2018-12-07] MEDS: PIPERACILLIN/TAZOBACTAM SOD 3.375 GM in D5W MINI-BAG PLUS 50 ML IV SCH ×4 (01:25→18:25)
[2018-12-07] MEDS: PANTOPRAZOLE SODIUM 40 MG in D5W 50 ML IV SCH ×3 (01:25→13:29)
[2018-12-07 05:05] LABS: HEMATOCRIT 26.4 % (36.0-47.0); HEMOGLOBIN 8.3 g/dl (12.0-15.5); MEAN CORPUSCULAR HEMOGLOBIN 28.2 pg (27.0-33.0); MEAN CORPUSCULAR HGB CONC 31.4 g/dl (32.0-36.5); MEAN CORPUSCULAR VOLUME 89.8 fl (80.0-96.0); PLATELET COUNT, AUTOMATED 104 10^3/uL (150-450); RED BLOOD COUNT 2.94 10^6/uL (4.00-5.40); WHITE BLOOD COUNT 9.1 10^3/uL (4.0-10.0)
[2018-12-07 05:29] LABS: BILIRUBIN,TOTAL 1.7 MG/DL (0.2-1.0); CALCIUM LEVEL 7.5 MG/DL (8.8-10.2); CREATININE FOR GFR 1.41 MG/DL (0.55-1.30); GLOMERULAR FILTRATION RATE 38.3 (>39)
[2018-12-07 05:30] LABS: ALBUMIN 1.8 GM/DL (3.2-5.2); MAGNESIUM LEVEL 1.8 MG/DL (1.8-2.4)
--- NOTE | 2018-12-07 07:55 | CR.PDOC ---
General Date of Consultation: Dec 07, 2018 Referring Provider: NOE CONCEPCION MD Attending Physician: ASHLEY RIVERA MD Consultation Primary physician/ hospitalist: Dr. Concepcion Reason for consult: Hematemesis. HPI: 78-year-old female patient with severe bronchiectasis, with prior pseudomonas infection, CKD stage III, presented to ER for shortness of breath and was being treated for exacerbation from super added infection. Patient is noted to have acute onset hematemesis yesterday night with melena and GI was consulted for the same. Patient is in mild to moderate respiratory distress duet to shortness of breath, cough and yellowish green expectoration. Patient is unable to give detailed history, so history was obtained from patients , nurse and patient ( as much as she can),. Patient was having upper abdominal pain for few days as per patient's and yesterday she had atleast one episode of coffee ground emesis, followed by multiple episodes of black tarry stools. Patient also feeling weak and dizzy since the onset of the above symptoms. Patient denies any other GI symptoms. Pertinent negative GI symptoms: Patient denies nausea, vomiting, diarrhea, abdominal pain, loss of appetite, early satiety or unintentional weight loss. No history of hematemesis, melena or hematochezia. Patient reports regular bowel movements. Review of Systems: GI: as stated above CVS: No chest pain, No palpitations, No leg swelling. 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 Skin: No rash : No hematuria, No burning sensation of the urine ENT: No ear discharge/ pain, No dysphagia. Eyes: No photophobia. Home medications: reviewed. Antithrombotic agents - None Medical h/o: As above. Surgical h/o: None on abdomen. Social h/o: Alcohol- Denies , tobacco- second hand exposure to smoking. IVDA/ drugs- Denies Family h/o of GI cancers - None Prior Endoscopies: --- EGD in Dec 2017 -- done for RONEN - by Dr. Drew -- showed moderately severe esophagitis, no varices and One cratered gastric ulcer. which was followed up in repeat EGD in Mar 2018 - Noted resolution of both esophagitis and Gastric ulcer. No varices. Prior GI evaluation: Following with Dr. Drew. Exam: Vitals: reviewed General: Alert and oriented x 3, not in distress HEENT: NO pallor, no icterus. Normal oropharynx, NO cervical lymph nodes. Chest: symmetric with bilateral clear air entry, CVS: S1, S2 heard, normal, no murmurs . Abdomen: non-distended, no surgical scars, soft, non-tender, no palpable masses, normal bowel sounds heard. Rectal exam: Patient refused / Deferred at this time in view of scheduled colonoscopy. Extremities: no pedal edema, pulses palpable. 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 Moves all extremities Skin: no rash. Labs: reviewed. CT abdomen - reviewed. Impression: - Acute onset hematemesis and melena with prior gastric ulcer, upper abdominal pain for past few weeks, Likely PUD bleeding vs Esophagitis ( from acid reflux) vs MWT vs less likely AVMs. Unlikely varices. 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 Recommendations: - Patient educated about the test results, possible differential diagnoses and All questions answered. - IV PPI drip / twice daily for now and then switch to oral PPI - pantoprazole 40 mg twice daily for atleast 3 months. - Will schedule for urgent EGD due to active bleeding. - The procedure, indications, elevated risks (bleeding, perforation, infection, hypotension, respiratory depression, allergy, need for endotracheal intubation, surgery, colostomy, cardiac arrest, even ), benefits, limitations (e.g., missing a lesion), and all other alternatives (including no intervention) were explained to the patient who understood and agreed for the procedure. - Follow procedure/ operative note for post procedure recommendations. Plan of care discussed with patient and primary team. Patient verbalized understanding and agreed with the plan. Laboratory Data Labs 24H Laboratory Tests 2 12/06/18 20:59: Nucleated Red Blood Cells % (auto) 0.0, Anion Gap 10, Glomerular Filtration Rate 33.6L, Blood Urea Nitrogen 47#H, Creatinine 1.58H, Sodium Level 139, Potassium Level 4.6, Chloride Level 105, Carbon Dioxide Level 24, Calcium Level 8.4L, Aspartate Amino Transf (AST/SGOT) 38H, Alanine Aminotransferase (ALT/SGPT) 24, Alkaline Phosphatase 80, Total Bilirubin 0.4, Total Protein 6.1L, Albumin 2.2L, Albumin/Globulin Ratio 0.56L 12/07/18 04:27: Nucleated Red Blood Cells % (auto) 0.0, Anion Gap 8, Glomerular Filtration Rate 38.3L, Blood Urea Nitrogen 66H, Creatinine 1.41H, Sodium Level 142, Potassium Le jennifer 5.0, Chloride Level 109H, Carbon Dioxide Level 25, Calcium Level 7.5L, Aspartate Amino Transf (AST/SGOT) 33, Alanine Aminotransferase (ALT/SGPT) 20, Alkaline Phosphatase 60, Total Bilirubin 1.7#H, Total Protein 5.0L, Albumin 1.8L, Albumin/Globulin Ratio 0.56L, Magnesium Level 1.8 CBC/BMP Laboratory Tests 12/06/18 20:59 Red Blood Count 2.42 L, Mean Corpuscular Volume 98.8 H, Mean Corpuscular Hemoglobin 30.6, Mean Corpuscular Hemoglobin Concent 31.0 L, Red Cell Distributi on Width 14.9 H, Calcium Level 8.4 L, Aspartate Amino Transf (AST/SGOT) 38 H, Alanine Aminotransferase (ALT/SGPT) 24, Alkaline Phosphatase 80, Total Bilirubin 0.4, Total Protein 6.1 L, Albumin 2.2 L 12/07/18 04:27 Red Blood Count 2.94 L, Mean Corpuscular Volume 89.8, Mean Corpuscular Hemoglobin 28.2, Mean Corpuscular Hemoglobin Concent 31.4 L, Red Cell Distribution Width 16.6 H, Calcium Level 7.5 L, Aspartate Amino Transf (AST/SGOT) 33, Alanine Aminotransferase (ALT/SGPT) 20, Alkaline Phosphatase 60, Total Bilirubin 1.7 #H, Total Protein 5.0 L, Albumin 1.8 L Microbiology Microbiology 12/07/18 Urine Culture, Received Pending 12/06/18 Gram Stain - Final, Resulted 12/06/18 Sputum Culture, Resulted Pending 12/06/18 Blood Culture - Preliminary, Resulted No growth after 24 hours . All specim... 12/06/18 Blood Culture - Preliminary, Resulted No growth after 24 hours . All specim... 12/05/18 Urine Culture - Final, Complete Allergies Coded Allergies: latanoprost (Verified Allergy, Severe, 12/05/18) levofloxacin (Verified Allergy, Severe, 12/05/18) bimatoprost (Verified Allergy, Intermediate, EYE REDNESS, 12/05/18) cephalexin (Verified Allergy, Intermediate, 12/05/18) dorzolamide (Verified Allergy, Intermediate, CONGESTED,COUGH, 12/05/18) timolol (Verified Allergy, Intermediate, CONGESTED,COUGH, 12/05/18) brimonidine (Verified Allergy, Unknown, 12/05/18) doxycycline (Verified Allergy, Unknown, 12/05/18) travoprost (Verified Adverse Reaction, Severe, EYE PAIN HEART RACING, 12/05/18) Sulfa (Sulfonamide Antibiotics) (Verified Adverse Reaction, Intermediate, GI ISSUES, 12/05/18) diclofenac (Verified Adverse Reaction, Intermediate, VOMITS, 12/05/18) moxifloxacin (Verified Adverse Reaction, Mild, DIARRHEA, 12/05/18) Home Medications Scheduled Albuterol Sulf (Albuterol Sulfate) 2.5 Mg/3 Ml Nebu, 1 INH INH BID, (Reported) Ascorbic Acid (Vitamin C) 250 Mg Tab, 250 MG PO TID, (Reported) Calcium Carbonate/Vitamin D3 (Oyster Shell 500-Vit D3 200 Tb) 1 Tab Tab, 1 TAB PO DAILY, (Reported) Multivitamins (Thera M Plus Tablet) 1 Tab Tab, 1 TAB PO DAILY, (Reported) ASHLEY RIVERA MD Dec 07, 2018 07:55
--- NOTE | 2018-12-07 08:04 | REP ---
Portable chest, for 07:00 a.m., single AP view with the patient upright: Comparison is 12/06/2018. The patient has chronic a known cystic bronchiectasis. Findings in the left lung are significantly more severe than right with diffuse advanced parenchymal scarring as well as cystic changes in the lung. Scarring. Results in volume loss in the left hemithorax. There is no change from prior studies. The cardiac margins are obscured, cardiac size cannot be determined. Impression: Chronic stable findings. No acute cardiopulmonary findings. Electronically Signed by Vitor Thakkar MD 12/07/2018 07:56 A
[2018-12-07] MEDS ORDERED: SODIUM CHLORIDE 0.9% 1000ML IV ONE (08:15)
[2018-12-07] MEDS: TOBRAMYCIN INHAL 300 MG/5 ML SOLN INH SCH ×2 (08:20→20:03)
[2018-12-07] MEDS: ALBUTEROL SULFATE 2.5 MG/0.5 ML INH NEB SOLN NEB SCH ×4 (08:20→23:52)
[2018-12-07 09:31] LABS: HEMATOCRIT 26.2 % (36.0-47.0); HEMOGLOBIN 8.3 g/dl (12.0-15.5)
--- NOTE | 2018-12-07 12:07 | IPNPDOC ---
Subjective Date Seen The patient was seen on 12/07/18. Subjective Chief Complaint/HPI Last night patient had several episodes of coffee ground emesis and several episodes of jamie. Her HH dropped and she became tachycadic and BP trended down. was moved to ICU started on PRBC transfusion and pantoprazole gtt. Denies any abdominal pain . continues to have melena this morning. no hemetemesis. Continues to have cough with large amounts of phlegm expectoration. No fever over night. Objective Physical Examination General Exam: Positive: Alert, Cooperative, Mild Distress Eye Exam: Positive: PERRLA, Conjunctiva & lids normal ENT Exam: Positive: Atraumatic, Mucous membr. moist/pink Neck Exam: Positive: Supple Chest Exam: Positive: Rales (on the left), Other (coarse breath sounds with coarse moist crackles all over the left lung, right clear. ) Heart Exam: Positive: Rate Normal, Regular Rhythm, Normal S1, Normal S2; Negative: Murmurs, Rubs Abdomen Exam: Positive: Normal bowel sounds, Soft; Negative: Tenderness, Hepatospenomegaly Extremity Exam: Negative: Clubbing, Cyanosis, Edema Skin Exam: Positive: Nl turgor and temperature Neuro Exam: Positive: Strength at 5/5 X4 ext, Sensation Intact Psych Exam: Positive: Mood NL, Oriented x 3 Assessment /Plan Assessment 78-year-old female with past medical history of long-term secondhand smoke exposure, and cystic bronchiectasis of the left, C diff pcr positive in 08/2018, CKD stage 3, thrombocytopenia, Esophagitis 12/2018, gastric ulcer 12/2018, hiatal hernia, internal hemorrhoids, diverticulosis, Presented to the ED for extreme weakness and unable to get out of chair. She was feeling unwell for a month with increased cough and cough which she had been unable to get rid off. In the ED she was noted to have low grade fever and about 2 point lower of hh from prior. She was admitted for acute exacerbation or bronchiectasis, acute bronchitis/ pneumonia. On the day after admission she started having coffee ground emesis and jamie and was moved to ICU for acute GIB. Acute GIB with acute blood loss anemia most probably from PUD. she had esophagitis and gastric ulcer in 2018. repeat EGD in 03/2018 showed that the ulcer had healed. there were some venous blebs at [facility] distal part of esophagus. started on PPI overnight continue NPO and IVF received 3 units of PRBC HH stable in mid 8s continue to monitor. GI consulted planned for EGD today. Acute bronchitis and exacerbation of bronchiectasis with possible pneumonitis Known to have psueudomonas in sputum sputum cultures have been sent, blood cultures have been sent will give zosyn IV and tobramycin inhalation albuterol, prednisone or antiinflammatory effect. acapella. Generalized weakness and deconditioning PT and PT. IRON DEFICIENCY ANEMIA now no issues. continue supplementation HX C. DIFF IN 08/2018 no issues now. GLAUCOMA CHRONIC KIDNEY DISEASE STAGE 3 stable. UA dirty asymptomatic Urine culture sent will get a bladder scan to see if there is any urinary retention patient on broad spectrum antibiotics. Plan/VTE VTE Prophylaxis Ordered?: Yes VS, I&O, 24H, Fishbone Vital Signs/I&O Vital Signs Date Time Temp Pulse Resp B/P (MAP) Pulse Ox O2 Delivery O2 Flow Rate FiO2 12/07/18 11:40 1.0 12/07/18 11:00 98.8 18 111 91/46 96 12/06/18 02:45 Room Air I&O- Last 24 Hours up to 6 AM 12/07/18 06:00 Intake Total 2048 ml Output Total 850 ml Balance 1198 ml Laboratory Data 24H LABS Laboratory Tests 2 12/06/18 20:59: Nucleated Red Blood Cells % (auto) 0.0, Anion Gap 10, Glomerular Filtration Rate 33.6L, Blood Urea Nitrogen 47#H, Creatinine 1.58H, Sodium Level 139, Potassium Level 4.6, Chloride Level 105, Carbon Dioxide Level 24, Calcium Level 8.4L, Aspartate Amino Transf (AST/SGOT) 38H, Alanine Aminotransferase (ALT/SGPT) 24, Alkaline Phosphatase 80, Total Bilirubin 0.4, Total Protein 6.1L, Albumin 2.2L, Albumin/Globulin Ratio 0.56L 12/07/18 04:27: Nucleated Red Blood Cells % (auto) 0.0, Anion Gap 8, Glomerular Filtration Rate 38.3L, Blood Urea Nitrogen 66H, Creatinine 1.41H, Sodium Level 142, Potassium Le jennifer 5.0, Chloride Level 109H, Carbon Dioxide Level 25, Calcium Level 7.5L, Aspartate Amino Transf (AST/SGOT) 33, Alanine Aminotransferase (ALT/SGPT) 20, Alkaline Phosphatase 60, Total Bilirubin 1.7#H, Total Protein 5.0L, Albumin 1.8L, Albumin/Globulin Ratio 0.56L, Magnesium Level 1.8 CBC/BMP Laboratory Tests 12/06/18 20:59 Red Blood Count 2.42 L, Mean Corpuscular Volume 98.8 H, Mean Corpuscular Hemoglobin 30.6, Mean Corpuscular Hemoglobin Concent 31.0 L, Red Cell Distributi on Width 14.9 H, Calcium Level 8.4 L, Aspartate Amino Transf (AST/SGOT) 38 H, Alanine Aminotransferase (ALT/SGPT) 24, Alkaline Phosphatase 80, Total Bilirubin 0.4, Total Protein 6.1 L, Albumin 2.2 L 12/07/18 04:27 Red Blood Count 2.94 L, Mean Corpuscular Volume 89.8, Mean Corpuscular Hemoglobin 28.2, Mean Corpuscular Hemoglobin Concent 31.4 L, Red Cell Distribution Width 16.6 H, Calcium Level 7.5 L, Aspartate Amino Transf (AST/SGOT) 33, Alanine Aminotransferase (ALT/SGPT) 20, Alkaline Phosphatase 60, Total Bilirubin 1.7 #H, Total Protein 5.0 L, Albumin 1.8 L 12/07/18 08:48 Microbiology Microbiology 12/07/18 Urine Culture, Received Pending 12/06/18 Gram Stain - Final, Resulted 12/06/18 Sputum Culture, Resulted Pending 12/06/18 Blood Culture - Preliminary, Resulted No growth after 24 hours . All specim... 12/06/18 Blood Culture - Preliminary, Resulted No growth after 24 hours . All specim... 12/05/18 Urine Culture - Final, Complete NOE HU MD Dec 07, 2018 12:07
[2018-12-07] MEDS ORDERED: PROPOFOL 500 MG/50 ML VIAL As Ordered ONE (13:35)
[2018-12-07] MEDS ORDERED: LIDOCAINE 2% INJ 100 MG/5 ML SDV (FOR ANES.) As Ordered ONE (13:35)
[2018-12-07] MEDS ORDERED: fentaNYL 100 MCG/2 ML INJECTION (J3010) As Ordered ONE (14:05)
[2018-12-07] MEDS ORDERED: METOCLOPRAMIDE INJ 10MG/2ML VIAL (J2765) As Ordered ONE (14:05)
[2018-12-07] MEDS ORDERED: CETACAINE SPRAY 5GM As Ordered ONE (14:20)
[2018-12-07] MEDS ORDERED: METOCLOPRAMIDE INJ 10MG/2ML VIAL (J2765) IV ONE (15:00)
--- NOTE | 2018-12-07 15:09 | ROOR ---
Patient Name: Ramon Miller Procedure Date: 12/07/2018 2:16 PM Date of : 1940 Age: 78 Room: Main OR Gender: Female Note Status: Finalized Procedure: Upper GI endoscopy Indications: Hematemesis, Melena Providers: Blas Sánchez MD Referring MD: Izzy Madrid Md Requesting Provider: Medicines: Monitored Anesthesia Care Complications: No immediate complications. Procedure: Pre-Anesthesia Assessment: - Prior to the procedure, a History and Physical was performed, and patient medications and allergies were reviewed. The patient is competent. The risks and benefits of the procedure and the sedation options and risks were discussed with the patient. All questions were answered and informed consent was obtained. Patient identification and proposed procedure were verified by the physician, the nurse and the anesthesiologist in the procedure room. Mental Status Examination: alert and oriented. Airway Examination: normal oropharyngeal airway and neck mobility. Respiratory Examination: clear to auscultation. CV Examination: normal. Prophylactic Antibiotics: The patient does not require prophylactic antibiotics. Prior Anticoagulants: The patient has taken no previous anticoagulant or antiplatelet agents. ASA Grade Assessment: IV - A patient with severe systemic disease that is a constant threat to life. After reviewing the risks and benefits, the patient was deemed in satisfactory condition to undergo the procedure. The anesthesia plan was to use monitored anesthesia care (MAC). Immediately prior to administration of medications, the patient was re-assessed for adequacy to receive sedatives. The heart rate, respiratory rate, oxygen saturations, blood pressure, adequacy of pulmonary ventilation, and response to care were monitored throughout the procedure. The physical status of the patient was re-assessed after the procedure. The Endoscope was introduced through the mouth, and advanced to the second part of duodenum. The upper GI endoscopy was accomplished without difficulty. The patient tolerated the procedure well. Findings: LA Grade D (one or more mucosal breaks involving at least 75% of esophageal circumference) esophagitis with no bleeding was found in the distal esophagus. One non-bleeding cratered gastric ulcer with a clean ulcer base (Brennon Class III) was found in the gastric antrum. The lesion was 10 mm in largest dimension. Localized hemorrhagic mucosa with no bleeding and stigmata of recent bleeding was found in the gastric body. For hemostasis, two hemostatic clips were successfully placed. There was no bleeding at the end of the procedure. The duodenal bulb and second portion of the duodenum were normal. Impression: - LA Grade D reflux and erosive esophagitis. - Non-bleeding gastric ulcer with a clean ulcer base (Brennon Class III). - Hemorrhagic gastropathy. Clips were placed. - Normal duodenal bulb and second portion of the duodenum. - No specimens collected. Recommendation: - Patient has a contact number available for emergencies. The signs and symptoms of potential delayed complications were discussed with the patient. Return to normal activities tomorrow. Written discharge instructions were provided to the patient. - Clear liquid diet for 1 day, then advance as tolerated to resume previous diet and mechanical soft diet. - Continue present medications. - Use Protonix (pantoprazole) 40 mg IV BID for atleast 24 hours and then swtich to oral 40 mg twice daily for 3 months. - Observe patient's clinical course. - Repeat upper endoscopy in 3 months to check healing. - Return to GI clinic in [facility] (address [address], [address], [place] [address]) in 4 -- 6 weeks. Please call GI clinic @ [phone] for apppointment date and time. - Return to primary care physician. Blas Sánchez MD Blas Sánchez MD 12/07/2018 3:09:24 PM Electronically signed by Blas Sánchez MD Number of Addenda: 0 Note Initiated On: 12/07/2018 2:16 PM Estimated Blood Loss: Estimated blood loss was minimal.
[2018-12-07] MEDS ORDERED: fentaNYL 100 MCG/2 ML INJECTION (J3010) IV PRN (15:15)
[2018-12-07] MEDS ORDERED: ONDANSETRON 4MG/2ML VIAL (J2405) IV PRN (15:15)
[2018-12-07] MEDS ORDERED: LR 1,000 ML IV SCH (15:15)
[2018-12-07 16:41] LABS: HEMATOCRIT 34.6 % (36.0-47.0)
[2018-12-07 20:14] LABS: HEMATOCRIT 32.9 % (36.0-47.0)
[2018-12-07] MEDS: PANTOPRAZOLE 40MG INJ (PROTONIX) (C9113) IV SCH (20:32)
[2018-12-08] VITALS (21 sets, daily range): BP systolic 82–113; BP diastolic 36–71
[2018-12-08] MEDS: PIPERACILLIN/TAZOBACTAM SOD 3.375 GM in D5W MINI-BAG PLUS 50 ML IV SCH ×4 (01:18→18:09)
[2018-12-08 02:11] LABS: HEMATOCRIT 27.7 % (36.0-47.0); HEMOGLOBIN 9.2 g/dl (12.0-15.5)
[2018-12-08 04:50] LABS: BASO % 0.5 % (0.0-1.0); EOS # 0.3 10^3/uL (0.0-0.5); EOS % 3.3 % (0.0-3.0); HEMATOCRIT 27.2 % (36.0-47.0); HEMOGLOBIN 9.2 g/dl (12.0-15.5); LYMPH # 1.9 10^3/uL (1.5-5.0); LYMPH % 22.7 % (24.0-44.0); MEAN CORPUSCULAR HEMOGLOBIN 29.7 pg (27.0-33.0); MEAN CORPUSCULAR HGB CONC 33.8 g/dl (32.0-36.5); MEAN CORPUSCULAR VOLUME 87.7 fl (80.0-96.0); MONO # 0.9 10^3/uL (0.0-0.8); MONO % 10.2 % (0.0-5.0); NEUTROPHILS # 5.4 10^3/uL (1.5-8.5); NEUTROPHILS % 62.8 % (36.0-66.0); PLATELET COUNT, AUTOMATED 109 10^3/uL (150-450); WHITE BLOOD COUNT 8.6 10^3/uL (4.0-10.0)
[2018-12-08 05:12] LABS: CALCIUM LEVEL 7.6 MG/DL (8.8-10.2); CREATININE FOR GFR 1.51 MG/DL (0.55-1.30); GLOMERULAR FILTRATION RATE 35.4 (>39); POTASSIUM SERUM 3.5 MEQ/L (3.5-5.1)
[2018-12-08] MEDS ORDERED: SODIUM CHLORIDE 0.9% 1000ML IV ONE (07:00)
[2018-12-08] MEDS: ALBUTEROL SULFATE 2.5 MG/0.5 ML INH NEB SOLN NEB SCH ×3 (07:32→23:26)
[2018-12-08] MEDS: TOBRAMYCIN INHAL 300 MG/5 ML SOLN INH SCH ×2 (07:32→20:23)
[2018-12-08] MEDS: PANTOPRAZOLE 40MG INJ (PROTONIX) (C9113) IV SCH ×2 (08:00→22:15)
[2018-12-08 08:16] LABS: HEMATOCRIT 29.7 % (36.0-47.0); HEMOGLOBIN 9.6 g/dl (12.0-15.5)
--- NOTE | 2018-12-08 14:20 | IPNPDOC ---
Subjective Date Seen The patient was seen on 12/08/18. Subjective Chief Complaint/HPI Patient continues to have melena, No further hemetemesis. Says feels very weak and tired. Continues to have severe cough with expectoration of large amounts of sputum. No fever or chills, no abdominal pain, no nausea. No SOB. Objective Physical Examination General Exam: Positive: Alert, Cooperative, Mild Distress Eye Exam: Positive: PERRLA, Conjunctiva & lids normal ENT Exam: Positive: Atraumatic, Mucous membr. moist/pink Neck Exam: Positive: Supple Chest Exam: Positive: Rales (on the left), Rhonchi (on the left), Other (coarse breath sounds with coarse moist crackles all over the left lung, right clear. ) Heart Exam: Positive: Rate Normal, Regular Rhythm, Normal S1, Normal S2; Negative: Murmurs, Rubs Abdomen Exam: Positive: Normal bowel sounds, Soft; Negative: Tenderness, Hepatospenomegaly Extremity Exam: Negative: Clubbing, Cyanosis, Edema Skin Exam: Positive: Nl turgor and temperature Neuro Exam: Positive: Strength at 5/5 X4 ext, Sensation Intact Psych Exam: Positive: Mood NL, Oriented x 3 Assessment /Plan Assessment 78-year-old female with past medical history of long-term secondhand smoke exposure, and cystic bronchiectasis of the left, C diff pcr positive in 08/2018, CKD stage 3, thrombocytopenia, Esophagitis 12/2018, gastric ulcer 12/2018, hiatal hernia, internal hemorrhoids, diverticulosis, Presented to the ED for extreme weakness and unable to get out of chair. She was feeling unwell for a month with increased cough and cough which she had been unable to get rid off. In the ED she was noted to have low grade fever and about 2 point lower of hh from prior. She was admitted for acute exacerbation or bronchiectasis, acute bronchitis/ pneumonia. On the day after admission she started having coffee ground emesis and jamie and was moved to ICU for acute GIB. Acute GIB with acute blood loss anemia EGD showed severe reflux and erosive esophagitis, Non-bleeding gastric ulcer with a clean ulcer base , Hemorrhagic gastropathy. Clips were placed she had esophagitis and gastric ulcer in 2018. repeat EGD in 03/2018 showed that the ulcer had healed. there were some venous blebs at the distal part of eso phagus. continue PPI, clear liquids, then will advance to soft diet this evening. received 3 units of PRBC HH stable in 9s. Acute bronchitis and exacerbation of bronchiectasis with possible pneumonitis Sputum again with pseudomonas. zosyn IV and tobramycin inhalation albuterol acapella. Generalized weakness and deconditioning PT and PT. IRON DEFICIENCY ANEMIA continue supplementation HX C. DIFF IN 08/2018 no issues now. GLAUCOMA CHRONIC KIDNEY DISEASE STAGE 3 stable. UA dirty asymptomatic Urine culture sent will get a bladder scan to see if there is any urinary retention patient on broad spectrum antibiotics. Advance directives discussed: Patient wants to be Full code for now. However she is going to discuss with her daughter before she fills out the MOLST form. There is no HCP at present Plan/VTE VTE Prophylaxis Ordered?: Yes VS, I&O, 24H, Fishbone Vital Signs/I&O Vital Signs Date Time Temp Pulse Resp B/P (MAP) Pulse Ox O2 Delivery O2 Flow Rate FiO2 12/08/18 10:33 106 108/58 (75) 94 12/08/18 08:00 0.5 12/08/18 07:31 98.0 24 12/06/18 02:45 Room Air I&O- Last 24 Hours up to 6 AM 12/08/18 06:00 Intake Total 811 ml Output Total 1930 ml Balance -1119 ml Laboratory Data 24H LABS Laboratory Tests 2 12/08/18 04:24: Immature Granulocyte % (Auto) 0.5, White Blood Count 8.6, Red Blood Count 3.10L, Hemoglobin 9.2L, Hematocrit 27.2L, Mean Corpuscular Volume 87.7, Mean Corpuscular Hemoglobin 29.7, Mean Corpuscular Hemoglobin Concent 33.8, Red Cell Distribution Width 17.9H, Platelet Count 109L, Neutrophils (%) (Auto) 62.8, Lymphocytes (%) (Auto) 22.7L, Monocytes (%) (Auto) 10.2H, Eosinophils (%) (Auto) 3.3H, Basophils (%) (Auto) 0.5, Neutrophils # (Auto) 5.4, Lymphocytes # (Auto) 1.9, Monocytes # (Auto) 0.9H, Eosinophils # (Auto) 0.3, Basophils # (Auto) 0.0, Nucleated Red Blood Cells % (auto) 0.0, Anion Gap 8, Glomerular Filtration Rate 35.4L, Blood Urea Nitrogen 68H, Creatinine 1.51H, Sodium Level 146H, Potassium Level 3.5#, Chloride Level 115H, Carbon Dioxide Level 23, Calcium Level 7.6L CBC/BMP Laboratory Tests 12/07/18 16:29 12/07/18 20:06 12/08/18 01:58 12/08/18 04:24 Red Blood Count 3.10 L, Mean Corpuscular Volume 87.7, Mean Corpuscular Hemoglobin 29.7, Mean Corpuscular Hemoglobin Concent 33.8, Red Cell Distribution Width 17.9 H, Neutrophils (%) (Auto) 62.8, Lymphocytes (%) (Auto) 22.7 L, Monocytes (%) (Auto) 10.2 H, Eosinophils (%) (Auto) 3.3 H, Basophils (%) (Auto) 0.5, Neutrophils # (Auto) 5.4, Lymphocytes # (Auto) 1.9, Monocytes # (Auto) 0.9 H, Eosinophils # (Auto) 0.3, Basophils # (Auto) 0.0, Calcium Level 7.6 L 12/08/18 08:02 Microbiology Microbiology 12/07/18 Urine Culture - Final, Complete 12/06/18 Gram Stain - Final, Complete 12/06/18 Sputum Culture - Final, Complete Pseudomonas Fluorescens 12/06/18 Blood Culture - Preliminary, Resulted No Growth after 48 hours. All Specime... 12/06/18 Blood Culture - Preliminary, Resulted No Growth after 48 hours. All Specime... 12/05/18 Urine Culture - Final, Complete NOE HU MD Dec 08, 2018 14:20
[2018-12-08] MEDS ORDERED: NS 500 ML IV ONE ×2 (16:30→19:00)
[2018-12-08 20:09] LABS: HEMATOCRIT 25.5 % (36.0-47.0); HEMOGLOBIN 8.3 g/dl (12.0-15.5)
[2018-12-09 01:53] LABS: HEMATOCRIT 25.4 % (36.0-47.0); HEMOGLOBIN 8.3 g/dl (12.0-15.5)
[2018-12-09] MEDS: PIPERACILLIN/TAZOBACTAM SOD 3.375 GM in D5W MINI-BAG PLUS 50 ML IV SCH ×4 (02:28→18:29)
[2018-12-09 06:00] VITALS: BP 90/43
[2018-12-09] MEDS ORDERED: NS 500 ML IV ONE (06:15)
[2018-12-09 06:23] LABS: BASO % 0.1 % (0.0-1.0); EOS # 0.4 10^3/uL (0.0-0.5); HEMATOCRIT 25.4 % (36.0-47.0); HEMOGLOBIN 8.2 g/dl (12.0-15.5); LYMPH # 1.9 10^3/uL (1.5-5.0); MEAN CORPUSCULAR HEMOGLOBIN 29.1 pg (27.0-33.0); MEAN CORPUSCULAR HGB CONC 32.3 g/dl (32.0-36.5); MEAN CORPUSCULAR VOLUME 90.1 fl (80.0-96.0); MONO # 0.7 10^3/uL (0.0-0.8); MONO % 9.3 % (0.0-5.0); NEUTROPHILS # 4.2 10^3/uL (1.5-8.5); NEUTROPHILS % 57.9 % (36.0-66.0); PLATELET COUNT, AUTOMATED 116 10^3/uL (150-450); RED BLOOD COUNT 2.82 10^6/uL (4.00-5.40); WHITE BLOOD COUNT 7.2 10^3/uL (4.0-10.0)
[2018-12-09 06:47] LABS: CALCIUM LEVEL 7.4 MG/DL (8.8-10.2); CREATININE FOR GFR 1.39 MG/DL (0.55-1.30); GLOMERULAR FILTRATION RATE 38.9 (>39)
[2018-12-09 07:13] VITALS: BP 82/40
[2018-12-09 07:14] VITALS: BP 100/40
[2018-12-09] MEDS: TOBRAMYCIN INHAL 300 MG/5 ML SOLN INH SCH ×2 (07:28→19:50)
[2018-12-09] MEDS: ALBUTEROL SULFATE 2.5 MG/0.5 ML INH NEB SOLN NEB SCH ×3 (07:28→22:59)
[2018-12-09] MEDS ORDERED: POTASSIUM CHLORIDE 10% LIQ 20 MEQ/15 ML UDC PO ONE (09:00)
[2018-12-09] MEDS: PANTOPRAZOLE 40MG INJ (PROTONIX) (C9113) IV SCH ×2 (09:08→22:00)
--- NOTE | 2018-12-09 09:49 | IPNPDOC ---
Subjective Date Seen The patient was seen on 12/09/18. Subjective Chief Complaint/HPI Says she is feeling a little better today but still very weak. Denies any abdominal pain , nausea or vomiting jumps when i touch her abdomen. Says its always like that. She has a daley and a rectal tube. No jamie in bart rectal tube now. It has brownish liquid stools. Her BPs have been running in the low range without any symptoms. Continues to have coughing and large amounts of expectoration. No fever or chills, has some chest discomfort from the bouts of coughing. Objective Physical Examination General Exam: Positive: Alert, Cooperative, Mild Distress Eye Exam: Positive: PERRLA, Conjunctiva & lids normal ENT Exam: Positive: Atraumatic, Mucous membr. moist/pink Neck Exam: Positive: Supple Chest Exam: Positive: Rales (on the left), Rhonchi (on the left), Other (coarse breath sounds with coarse moist crackles all over the left lung, right clear. ) Heart Exam: Positive: Rate Normal, Regular Rhythm, Normal S1, Normal S2; Negative: Murmurs, Rubs Abdomen Exam: Positive: Normal bowel sounds, Soft; Negative: Tenderness, Hepatospenomegaly Extremity Exam: Negative: Clubbing, Cyanosis, Edema Skin Exam: Positive: Nl turgor and temperature Neuro Exam: Positive: Strength at 5/5 X4 ext, Sensation Intact Psych Exam: Positive: Mood NL, Oriented x 3 Assessment /Plan Assessment 78-year-old female with past medical history of long-term secondhand smoke exposure, and cystic bronchiectasis of the left, C diff pcr positive in 08/2018, CKD stage 3, thrombocytopenia, Esophagitis 12/2018, gastric ulcer 12/2018, hiatal hernia, internal hemorrhoids, diverticulosis, Presented to the ED for extreme weakness and unable to get out of chair. She was feeling unwell for a month with increased cough and cough which she had been unable to get rid off. In the ED she was noted to have low grade fever and about 2 point lower of hh from prior. She was admitted for acute exacerbation or bronchiectasis, acute bronchitis/ pneumonia. On the day after admission she started having coffee ground emesis and jamie and was moved to ICU for acute GIB. Acute GIB with acute blood loss anemia EGD showed severe reflux and erosive esophagitis, Non-bleeding gastric ulcer with a clean ulcer base , Hemorrhagic gastropathy. Clips were placed she had esophagitis and gastric ulcer in 2018. repeat EGD in 03/2018 showed that the ulcer had healed. there were some venous blebs at the distal part of esophagus. continue PPI, advance to soft diet received 3 units of PRBC HH some down trending to mid 8s but has gotten quite a bit of fluid over th past 2 days so may have some dilutional component to Acute bronchitis and exacerbation of bronchiectasis with possible pneumonitis Sputum again with pseudomonas. zosyn IV and tobramycin inhalation albuterol acapella. Generalized weakness and deconditioning PT and PT. IRON DEFICIENCY ANEMIA continue supplementation HX C. DIFF IN 08/2018 no issues now. GLAUCOMA CHRONIC KIDNEY DISEASE STAGE 3 stable. UA dirty asymptomatic Urine culture sent will get a bladder scan to see if there is any urinary retention patient on broad spectrum antibiotics. Advance directives discussed: Patient wants to be Full code for now. However she is going to discuss with her daughter before she fills out the MOLST form. There is no HCP at present Plan/VTE VTE Prophylaxis Ordered?: Yes VS, I&O, 24H, Fishbone Vital Signs/I&O Vital Signs Date Time Temp Pulse Resp B/P (MAP) Pulse Ox O2 Delivery O2 Flow Rate FiO2 12/09/18 07:14 90 100/40 (60) 12/09/18 06:00 98.6 16 92 12/08/18 08:00 0.5 12/06/18 02:45 Room Air I&O- Last 24 Hours up to 6 AM 12/09/18 06:00 Intake Total 2575 ml Output Total 1550 ml Balance 1025 ml Laboratory Data 24H LABS Laboratory Tests 2 12/09/18 05:55: Immature Granulocyte % (Auto) 0.7, White Blood Count 7.2, Red Blood Count 2.82L, Hemoglobin 8.2L, Hematocrit 25.4L, Mean Corpuscular Volume 90.1, Mean Corpuscular Hemoglobin 29.1, Mean Corpuscular Hemoglobin Concent 32.3, Red Cell Distribution Width 18.2H, Platelet Count 116L, Neutrophils (%) (Auto) 57.9, Lymphocytes (%) (Auto) 26.0, Monocytes (%) (Auto) 9.3H, Eosinophils (%) (Auto) 6.0H, Basophils (%) (Auto) 0.1, Neutrophils # (Auto) 4.2, Lymphocytes # (Auto) 1.9, Monocytes # (Auto) 0.7, Eosinophils # (Auto) 0.4, Basophils # (Auto) 0.0, Nucleated Red Blood Cells % (auto) 0.0, Anion Gap 6L, Glomerular Filtration Rate 38.9L, Blood Urea Nitrogen 34H, Creatinine 1.39H, Sodium Level 148H, Potassium Level 3.0L, Chloride Level 120H, Carbon Dioxide Level 22, Calcium Level 7.4L CBC/BMP Laboratory Tests 12/08/18 19:50 12/09/18 01:41 12/09/18 05:55 Red Blood Count 2.82 L, Mean Corpuscular Volume 90.1, Mean Corpuscular Hemoglobin 29.1, Mean Corpuscular Hemoglobin Concent 32.3, Red Cell Distribution Width 18.2 H, Neutrophils (%) (Auto) 57.9, Lymphocytes (%) (Auto) 26.0, Monocytes (%) (Auto) 9.3 H, Eosinophils (%) (Auto) 6.0 H, Basophils (%) (Auto) 0.1, Neutrophils # (Auto) 4.2, Lymphocytes # (Auto) 1.9, Monocytes # (Auto) 0.7, Eosinophils # (Auto) 0.4, Basophils # (Auto) 0.0, Calcium Level 7.4 L Microbiology Microbiology 12/07/18 Urine Culture - Final, Complete 12/06/18 Gram Stain - Final, Complete 12/06/18 Sputum Culture - Final, Complete Pseudomonas Fluorescens 12/06/18 Blood Culture - Preliminary, Resulted No Growth after 72 hours. All specime... 12/06/18 Blood Culture - Preliminary, Resulted No Growth after 72 hours. All specime... 12/05/18 Urine Culture - Final, Complete NOE HU MD Dec 09, 2018 09:49
[2018-12-09 14:00] VITALS: BP 104/60
[2018-12-09 22:00] VITALS: BP 137/72
[2018-12-10] MEDS: PIPERACILLIN/TAZOBACTAM SOD 3.375 GM in D5W MINI-BAG PLUS 50 ML IV SCH ×4 (00:29→18:58)
[2018-12-10 05:51] LABS: BASO % 0.2 % (0.0-1.0); EOS # 0.6 10^3/uL (0.0-0.5); EOS % 6.4 % (0.0-3.0); HEMATOCRIT 25.9 % (36.0-47.0); HEMOGLOBIN 8.5 g/dl (12.0-15.5); LYMPH # 1.5 10^3/uL (1.5-5.0); LYMPH % 17.4 % (24.0-44.0); MEAN CORPUSCULAR HGB CONC 32.8 g/dl (32.0-36.5); MEAN CORPUSCULAR VOLUME 91.5 fl (80.0-96.0); MONO # 0.7 10^3/uL (0.0-0.8); MONO % 7.9 % (0.0-5.0); NEUTROPHILS % 67.3 % (36.0-66.0); PLATELET COUNT, AUTOMATED 106 10^3/uL (150-450); RED BLOOD COUNT 2.83 10^6/uL (4.00-5.40); WHITE BLOOD COUNT 8.9 10^3/uL (4.0-10.0)
[2018-12-10 06:00] VITALS: BP 102/54
[2018-12-10 06:06] LABS: CALCIUM LEVEL 7.6 MG/DL (8.8-10.2); CREATININE FOR GFR 1.23 MG/DL (0.55-1.30); GLOMERULAR FILTRATION RATE 44.8 (>39); POTASSIUM SERUM 3.5 MEQ/L (3.5-5.1)
[2018-12-10] MEDS: ALBUTEROL SULFATE 2.5 MG/0.5 ML INH NEB SOLN NEB SCH ×3 (07:10→23:15)
[2018-12-10] MEDS: TOBRAMYCIN INHAL 300 MG/5 ML SOLN INH SCH ×2 (07:10→19:40)
[2018-12-10] MEDS: PANTOPRAZOLE 40MG INJ (PROTONIX) (C9113) IV SCH ×2 (09:30→20:18)
[2018-12-10 14:00] VITALS: BP 113/59
[2018-12-10] MEDS: IPRATROPIUM 0.5MG/ALBUTEROL 2.5MG INH SOL UD 3ML (DUONEB)(J7620) NEB PRN (17:20)
[2018-12-10 22:00] VITALS: BP 101/53
--- NOTE | 2018-12-10 22:34 | IPNPDOC ---
Subjective Date Seen The patient was seen on 12/10/18. Subjective Chief Complaint/HPI patient looks much better, Says feels much better, cough a little less, no dizzines or light headedness. No jamie in rectal tube. Will dc rectal tube and daley. No fever or chills, no abdominal pain , [place] or vomiting or diarrhea. Objective Physical Examination General Exam: Positive: Alert, Cooperative, Mild Distress Eye Exam: Positive: PERRLA, Conjunctiva & lids normal ENT Exam: Positive: Atraumatic, Mucous membr. moist/pink Neck Exam: Positive: Supple Chest Exam: Positive: Rales (on the left), Rhonchi (on the left), Other (coarse breath sounds with coarse moist crackles all over the left lung, right clear. ) Heart Exam: Positive: Rate Normal, Regular Rhythm, Normal S1, Normal S2; Negative: Murmurs, Rubs Abdomen Exam: Positive: Normal bowel sounds, Soft; Negative: Tenderness, Hepatospenomegaly Extremity Exam: Negative: Clubbing, Cyanosis, Edema Skin Exam: Positive: Nl turgor and temperature Neuro Exam: Positive: Strength at 5/5 X4 ext, Sensation Intact Psych Exam: Positive: Mood NL, Oriented x 3 Assessment /Plan Assessment 78-year-old female with past medical history of long-term secondhand smoke exposure, and cystic bronchiectasis of the left, C diff pcr positive in 08/2018, CKD stage 3, thrombocytopenia, Esophagitis 12/2018, gastric ulcer 12/2018, hiatal hernia, internal hemorrhoids, diverticulosis, Presented to the ED for extreme weakness and unable to get out of chair. She was feeling unwell for a month with increased cough and cough which she had been unable to get rid off. In the ED she was noted to have low grade fever and about 2 point lower of hh from prior. She was admitted for acute exacerbation or bronchiectasis, acute bronchitis/ pneumonia. On the day after admission she started having coffee ground emesis and jamie and was moved to ICU for acute GIB. Acute GIB with acute blood loss anemia EGD showed severe reflux and erosive esophagitis, Non-bleeding gastric ulcer with a clean ulcer base , Hemorrhagic gastropathy. Clips were placed she had esophagitis and gastric ulcer in 2018. repeat EGD in 03/2018 showed that the ulcer had healed. there were some venous blebs at the distal part of esophagus. continue PPI, advance to soft diet received 3 units of PRBC hh stable in mid 8. oral iron. Acute bronchitis and exacerbation of bronchiectasis with possible pneumonitis Sputum again with pseudomonas fluoroscens zosyn IV and tobramycin inhalation albuterol acapella. Generalized weakness and deconditioning PT and PT. IRON DEFICIENCY ANEMIA continue supplementation HX C. DIFF IN 08/2018 no issues now. GLAUCOMA CHRONIC KIDNEY DISEASE STAGE 3 stable. UA dirty asymptomatic Urine culture sent will get a bladder scan to see if there is any urinary retention patient on broad spectrum antibiotics. Advance directives discussed:pateint wants to be DNR/DNI, MOLST form done and put in chart. Plan/VTE VTE Prophylaxis Ordered?: Yes VS, I&O, 24H, Fishbone Vital Signs/I&O Vital Signs Date Time Temp Pulse Resp B/P (MAP) Pulse Ox O2 Delivery O2 Flow Rate FiO2 12/10/18 14:00 98.7 92 22 113/59 (77) 95 12/08/18 08:00 0.5 12/06/18 02:45 Room Air I&O- Last 24 Hours up to 6 AM 12/10/18 05:59 Intake Total 2456 ml Output Total 1475 ml Balance 981 ml Laboratory Data 24H LABS Laboratory Tests 2 12/10/18 05:25: Immature Granulocyte % (Auto) 0.8, White Blood Count 8.9, Red Blood Count 2.83L, Hemoglobin 8.5L, Hematocrit 25.9L, Mean Corpuscular Volume 91.5, Mean Corpuscular Hemoglobin 30.0, Mean Corpuscular Hemoglobin Concent 32.8, Red Cell Distribution Width 18.0H, Platelet Count 106L, Neutrophils (%) (Auto) 67.3H, Lymphocytes (%) (Auto) 17.4L, Monocytes (%) (Auto) 7.9H, Eosinophils (%) (Auto) 6.4H, Basophils (%) (Auto) 0.2, Neutrophils # (Auto) 6.0, Lymphocytes # (Auto) 1.5, Monocytes # (Auto) 0.7, Eosinophils # (Auto) 0.6H, Basophils # (Auto) 0.0, Nucleated Red Blood Cells % (auto) 0.0, Anion Gap 3L, Glomerular Filtration Rate 44.8, Blood Urea Nitrogen 23H, Creatinine 1.23, Sodium Level 144, Potassium Level 3.5, Chloride Level 119H, Carbon Dioxide Level 22, Calcium Level 7.6L CBC/BMP Laboratory Tests 12/10/18 05:25 Red Blood Count 2.83 L, Mean Corpuscular Volume 91.5, Mean Corpuscular Hemoglobin 30.0, Mean Corpuscular Hemoglobin Concent 32.8, Red Cell Distribution Width 18.0 H, Neutrophils (%) (Auto) 67.3 H, Lymphocytes (%) (Auto) 17.4 L, Monocytes (%) (Auto) 7.9 H, Eosinophils (%) (Auto) 6.4 H, Basophils (%) (Auto) 0.2, Neutrophils # (Auto) 6.0, Lymphocytes # (Auto) 1.5, Monocytes # (Auto) 0.7, Eosinophils # (Auto) 0.6 H, Basophils # (Auto) 0.0, Calcium Level 7.6 L Microbiology Microbiology 12/07/18 Urine Culture - Final, Complete 12/06/18 Gram Stain - Final, Complete 12/06/18 Sputum Culture - Final, Complete Pseudomonas Fluorescens 12/06/18 Blood Culture - Preliminary, Resulted No Growth after 72 hours. All specime... 12/06/18 Blood Culture - Preliminary, Resulted No Growth after 72 hours. All specime... 12/05/18 Urine Culture - Final, Complete NOE HU MD Dec 10, 2018 22:34
[2018-12-11] VITALS (9 sets, daily range): BP systolic 102–115; BP diastolic 40–64
[2018-12-11] MEDS: PIPERACILLIN/TAZOBACTAM SOD 3.375 GM in D5W MINI-BAG PLUS 50 ML IV SCH ×4 (01:48→18:29)
[2018-12-11 06:15] LABS: BASO % 0.4 % (0.0-1.0); EOS # 0.8 10^3/uL (0.0-0.5); EOS % 10.2 % (0.0-3.0); HEMATOCRIT 24.9 % (36.0-47.0); LYMPH # 1.9 10^3/uL (1.5-5.0); LYMPH % 23.9 % (24.0-44.0); MEAN CORPUSCULAR HEMOGLOBIN 29.4 pg (27.0-33.0); MEAN CORPUSCULAR HGB CONC 32.1 g/dl (32.0-36.5); MEAN CORPUSCULAR VOLUME 91.5 fl (80.0-96.0); MONO # 0.8 10^3/uL (0.0-0.8); MONO % 10.1 % (0.0-5.0); NEUTROPHILS # 4.2 10^3/uL (1.5-8.5); NEUTROPHILS % 54.1 % (36.0-66.0); PLATELET COUNT, AUTOMATED 119 10^3/uL (150-450); RED BLOOD COUNT 2.72 10^6/uL (4.00-5.40); WHITE BLOOD COUNT 7.8 10^3/uL (4.0-10.0)
[2018-12-11 06:35] LABS: CALCIUM LEVEL 7.5 MG/DL (8.8-10.2); CREATININE FOR GFR 1.27 MG/DL (0.55-1.30); GLOMERULAR FILTRATION RATE 43.2 (>39); POTASSIUM SERUM 3.5 MEQ/L (3.5-5.1)
[2018-12-11] MEDS: ALBUTEROL SULFATE 2.5 MG/0.5 ML INH NEB SOLN NEB SCH ×3 (07:43→23:42)
[2018-12-11] MEDS: TOBRAMYCIN INHAL 300 MG/5 ML SOLN INH SCH ×2 (07:44→19:47)
[2018-12-11 08:05] LABS: PERCENT SATURATION 19.1 % (13.2-45.0)
[2018-12-11] MEDS: PANTOPRAZOLE 40MG INJ (PROTONIX) (C9113) IV SCH ×2 (10:14→21:25)
[2018-12-11 10:54] LABS: FOLATE 14.8 NG/ML (>5.4)
[2018-12-11] MEDS: IPRATROPIUM 0.5MG/ALBUTEROL 2.5MG INH SOL UD 3ML (DUONEB)(J7620) NEB PRN (11:04)
[2018-12-11] MEDS ORDERED: FUROSEMIDE 20 MG/2 ML VIAL (J1940) IV ONE ×2 (13:00→17:00)
[2018-12-12] MEDS: PIPERACILLIN/TAZOBACTAM SOD 3.375 GM in D5W MINI-BAG PLUS 50 ML IV SCH ×4 (00:49→18:21)
--- NOTE | 2018-12-12 01:05 | IPNPDOC ---
Subjective Date Seen The patient was seen on 12/11/18. Subjective Chief Complaint/HPI No complaints this morning. Says had a regular bowel movement today in the commode. cough a little better. No fever or chills, no chest pain, has abdominal soreness all over which is not new. Objective Physical Examination General Exam: Positive: Alert, Cooperative, Mild Distress Eye Exam: Positive: PERRLA, Conjunctiva & lids normal ENT Exam: Positive: Atraumatic, Mucous membr. moist/pink Neck Exam: Positive: Supple Chest Exam: Positive: Rales (on the left), Rhonchi (on the left), Other (coarse breath sounds with coarse moist crackles all over the left lung, right clear. ) Heart Exam: Positive: Rate Normal, Regular Rhythm, Normal S1, Normal S2; Negative: Murmurs, Rubs Abdomen Exam: Positive: Normal bowel sounds, Soft; Negative: Tenderness, Hepatospenomegaly Extremity Exam: Negative: Clubbing, Cyanosis, Edema Skin Exam: Positive: Nl turgor and temperature Neuro Exam: Positive: Strength at 5/5 X4 ext, Sensation Intact Psych Exam: Positive: Mood NL, Oriented x 3 Assessment /Plan Assessment 78-year-old female with past medical history of long-term secondhand smoke exposure, and cystic bronchiectasis of the left, C diff pcr positive in 08/2018, CKD stage 3, thrombocytopenia, Esophagitis 12/2018, gastric ulcer 12/2018, hiata l hernia, internal hemorrhoids, diverticulosis, Presented to the ED for extreme weakness and unable to get out of chair. She was feeling unwell for a month with increased cough and cough which she had been unable to get rid off. In the ED she was noted to have low grade fever and about 2 point lower of hh from prior. She was admitted for acute exacerbation or bronchiectasis, acute bronchitis/ pneumonia. On the day after admission she started having coffee ground emesis and jamie and was moved to ICU for acute GIB. Acute GIB with acute blood loss anemia EGD showed severe reflux and erosive esophagitis, Non-bleeding gastric ulcer with a clean ulcer base , Hemorrhagic gastropathy. Clips were placed she had esophagitis and gastric ulcer in 2018. repeat EGD in 03/2018 showed that the ulcer had healed. there were some venous blebs at the distal part of esophagus. continue PPI, advance to soft diet received 4 units of PRBC hh stable in mid 8. oral iron. Acute bronchitis and exacerbation of bronchiectasis with possible pneumonitis Sputum again with pseudomonas fluoroscens zosyn IV and tobramycin inhalation albuterol, acapella. ID consulted. Generalized weakness and deconditioning PT and OT. IRON DEFICIENCY ANEMIA continue supplementation HX C. DIFF IN 08/2018 no issues now. GLAUCOMA CHRONIC KIDNEY DISEASE STAGE 3 stable. UA dirty asymptomatic Urine culture no growth. patient on broad spectrum antibiotics. Advance directives discussed:pateint wants to be DNR/DNI, MOLST form done and put in chart. Plan/VTE VTE Prophylaxis Ordered?: Yes VS, I&O, 24H, Fishbone Vital Signs/I&O Vital Signs Date Time Temp Pulse Resp B/P (MAP) Pulse Ox O2 Delivery O2 Flow Rate FiO2 12/11/18 22:00 98.2 105 18 110/53 (72) 93 12/08/18 08:00 0.5 12/06/18 02:45 Room Air I&O- Last 24 Hours up to 6 AM 12/12/18 06:00 Intake Total 1260 ml Output Total 100 ml Balance 1160 ml Laboratory Data 24H LABS Laboratory Tests 2 12/11/18 05:44: Immature Granulocyte % (Auto) 1.3, White Blood Count 7.8, Red Blood Count 2.72L, Hemoglobin 8.0L, Hematocrit 24.9L, Mean Corpuscular Volume 91.5, Mean Corpuscular Hemoglobin 29.4, Mean Corpuscular Hemoglobin Concent 32.1, Red Cell Distribution Width 18.2H, Platelet Count 119L, Neutrophils (%) (Auto) 54.1, Lymphocytes (%) (Auto) 23.9L, Monocytes (%) (Auto) 10.1H, Eosinophils (%) (Auto) 10.2H, Basophils (%) (Auto) 0.4, Neutrophils # (Auto) 4.2, Lymphocytes # (Auto) 1.9, Monocytes # (Auto) 0.8, Eosinophils # (Auto) 0.8H, Basophils # (Auto) 0.0, Nucleated Red Blood Cells % (auto) 0.0, Anion Gap 5L, Glomerular Filtration Rate 43.2, Blood Urea Nitrogen 15, Creatinine 1.27, Sodium Level 142, Potassium Level 3.5, Chloride Level 115H, Carbon Dioxide Level 22, Calcium Level 7.5L 12/11/18 07:15: Iron Level 39L, Total Iron Binding Capacity 204L, Transferrin % Saturation 19.1, Ferritin 342H, Vitamin B12 Level 1402H, Folate 14.8 CBC/BMP Laboratory Tests 12/11/18 05:44 Red Blood Count 2.72 L, Mean Corpuscular Volume 91.5, Mean Corpuscular Hemoglobin 29.4, Mean Corpuscular Hemoglobin Concent 32.1, Red Cell Distribution Width 18.2 H, Neutrophils (%) (Auto) 54.1, Lymphocytes (%) (Auto) 23.9 L, Monocytes (%) (Auto) 10.1 H, Eosinophils (%) (Auto) 10.2 H, Basophils (%) (Auto) 0.4, Neutrophils # (Auto) 4.2, Lymphocytes # (Auto) 1.9, Monocytes # (Auto) 0.8, Eosinophils # (Auto) 0.8 H, Basophils # (Auto) 0.0, Calcium Level 7.5 L Microbiology Microbiology 12/07/18 Urine Culture - Final, Complete 12/06/18 Gram Stain - Final, Complete 12/06/18 Sputum Culture - Final, Complete Pseudomonas Fluorescens 12/06/18 Blood Culture - Final, Complete NO GROWTH AFTER 5 DAYS 12/06/18 Blood Culture - Final, Complete NO GROWTH AFTER 5 DAYS 12/05/18 Urine Culture - Final, Complete NOE HU MD Dec 12, 2018 01:05
[2018-12-12 05:54] LABS: BASO % 0.4 % (0.0-1.0); EOS # 0.8 10^3/uL (0.0-0.5); EOS % 10.3 % (0.0-3.0); HEMATOCRIT 27.1 % (36.0-47.0); HEMOGLOBIN 9.2 g/dl (12.0-15.5); LYMPH # 1.7 10^3/uL (1.5-5.0); LYMPH % 22.8 % (24.0-44.0); MEAN CORPUSCULAR HEMOGLOBIN 30.5 pg (27.0-33.0); MEAN CORPUSCULAR HGB CONC 33.9 g/dl (32.0-36.5); MEAN CORPUSCULAR VOLUME 89.7 fl (80.0-96.0); MONO # 0.8 10^3/uL (0.0-0.8); MONO % 11.1 % (0.0-5.0); NEUTROPHILS # 4.1 10^3/uL (1.5-8.5); NEUTROPHILS % 53.7 % (36.0-66.0); PLATELET COUNT, AUTOMATED 128 10^3/uL (150-450); RED BLOOD COUNT 3.02 10^6/uL (4.00-5.40); WHITE BLOOD COUNT 7.6 10^3/uL (4.0-10.0)
[2018-12-12 06:00] VITALS: BP 112/55
[2018-12-12 06:17] LABS: CALCIUM LEVEL 7.8 MG/DL (8.8-10.2); CREATININE FOR GFR 1.08 MG/DL (0.55-1.30); GLOMERULAR FILTRATION RATE 52.1 (>39); POTASSIUM SERUM 3.7 MEQ/L (3.5-5.1)
[2018-12-12] MEDS: ALBUTEROL SULFATE 2.5 MG/0.5 ML INH NEB SOLN NEB SCH ×3 (07:19→23:50)
[2018-12-12] MEDS: TOBRAMYCIN INHAL 300 MG/5 ML SOLN INH SCH ×2 (07:19→18:17)
[2018-12-12] MEDS: PANTOPRAZOLE 40MG INJ (PROTONIX) (C9113) IV SCH (08:33)
[2018-12-12 14:00] VITALS: BP 112/55
[2018-12-12 16:25] LABS: C REACTIVE PROTEIN QUANTITATIV 2.04 MG/DL (0.00-0.30)
--- NOTE | 2018-12-12 17:44 | IPN ---
DATE: 12/12/2018 The patient denies any nausea, vomiting, reflux, hematemesis, bright red blood per rectum, melena, black tarry stools. Shortness of breath has significantly improved. The patient may benefit from outpatient physical therapy with plans for discharge home once antibiotics are completed. Denies any abdominal pain. Tolerating her diet well. No complaints of cough, chills, or fever. VITAL SIGNS: Temperature 97.9, pulse 88, respiratory rate 17, blood pressure 112/55, 96% on room air. GENERAL: Awake, alert and oriented times three, answering questions appropriately, slightly hard of hearing. No respiratory distress. No use of respiratory accessory muscles. Able to speak in full sentences. No jugular venous distention (JVD) or thyromegaly. Moist mucous membranes. Lungs are diminished with bilateral wheezing. HEART: S1, S2, sinus rhythm. Abdomen is soft, nontender, nondistended. Positive bowel sounds times four quadrants. No rebound or guarding. EXTREMITIES: No clubbing, cyanosis, or pitting edema. LABORATORY DATA: White count 7.6, hemoglobin 9.2, hematocrit 27, platelet count 128. Sodium 143, potassium 3.7, chloride 116, bicarbonate 23, BUN 13, creatinine 1, glucose of 93. MICROBIOLOGY: Pseudomonas fluorescens 12/06/2018. IMAGING STUDIES: Chest x-ray: No acute cardiopulmonary findings. ASSESSMENT AND PLAN: A 78-year-old female with a history of cystic bronchiectasis, Clostridium (C) difficile positive August 2018, chronic kidney disease (CKD) stage III, esophagitis, gastric ulcer, hiatal hernia, long-term secondhand smoking, complaint of weakness, cough, found to have low-grade fever and severe anemia. The patient was admitted for acute bronchitis, bronchiectasis exacerbation with coffee-ground emesis and melena, was admitted to intensive care unit (ICU) for acute gastrointestinal (GI) bleed. ACTIVE ISSUES: 1. Pseudomonas bronchiectasis exacerbation. Currently on IV Zosyn, tobramycin, albuterol, Acapella. Infectious disease (ID) has been consulted. 2. Non-bleeding gastric ulcer. Will need outpatient repeat esophagogastroduodenoscopy (EGD) to check for resolution. Currently on Protonix twice a day. The patient was also found to have severe esophagitis in the distal esophagus with hemorrhagic gastropathy, status post clip placement. The patient is to have Protonix 40 twice a day for three months with repeat upper endoscopy and return to GI clinic in 4-6 weeks. [facility]
[2018-12-12 19:04] LABS: IMMUNOGLOBULIN M 40.9 MG/DL (40-230)
[2018-12-12] MEDS: PANTOPRAZOLE 40MG TAB (PROTONIX) PO SCH (20:45)
[2018-12-12 22:00] VITALS: BP 130/75
[2018-12-13 06:00] VITALS: BP 111/56
[2018-12-13 06:34] LABS: BASO # 0.1 10^3/uL (0.0-0.2); BASO % 0.6 % (0.0-1.0); EOS # 0.9 10^3/uL (0.0-0.5); EOS % 10.7 % (0.0-3.0); HEMATOCRIT 28.1 % (36.0-47.0); HEMOGLOBIN 9.4 g/dl (12.0-15.5); LYMPH % 24.3 % (24.0-44.0); MEAN CORPUSCULAR HEMOGLOBIN 30.6 pg (27.0-33.0); MEAN CORPUSCULAR HGB CONC 33.5 g/dl (32.0-36.5); MEAN CORPUSCULAR VOLUME 91.5 fl (80.0-96.0); MONO % 11.7 % (0.0-5.0); NEUTROPHILS # 4.1 10^3/uL (1.5-8.5); PLATELET COUNT, AUTOMATED 164 10^3/uL (150-450); RED BLOOD COUNT 3.07 10^6/uL (4.00-5.40); WHITE BLOOD COUNT 8.2 10^3/uL (4.0-10.0)
[2018-12-13 06:53] LABS: CALCIUM LEVEL 7.8 MG/DL (8.8-10.2); CREATININE FOR GFR 1.07 MG/DL (0.55-1.30); GLOMERULAR FILTRATION RATE 52.7 (>39)
[2018-12-13] MEDS: TOBRAMYCIN INHAL 300 MG/5 ML SOLN INH SCH ×2 (07:08→21:10)
[2018-12-13] MEDS: ALBUTEROL SULFATE 2.5 MG/0.5 ML INH NEB SOLN NEB SCH ×3 (07:08→21:10)
--- NOTE | 2018-12-13 07:49 | CR ---
DATE OF CONSULTATION: 12/12/2018 REQUESTING PHYSICIAN: Hospitalist for evaluation of Pseudomonas fluorescens sputum culture with in a patient who has chronic bronchiectasis. HISTORY OF PRESENT ILLNESS: Mrs. Miller is a 78-year-old frail female with a history of severe bronchiectasis and recurrent Pseudomonas infection since 2008. Most recently she has had Pseudomonas thickened mucoid colonies in 2018. In 2019 she had Pseudomonas fluorescens. She was admitted with pneumonia in August 2018 and had Clostridium (C) difficile colitis. This time she was admitted with her usual cough, increasing shortness of breath and was noted to be anemic. She was seen in consultation with Dr. Sánchez for hemoglobin down to 7.4. She had an endoscopy which showed esophagitis and a gastric ulcer that was not bleeding. She received four units of blood and the patient's shortness of breath is much better. She has a chronic cough productive of thick yellow mucoid phlegm which she stated is about her baseline. She has no nausea, vomiting or diarrhea. No abdominal pain. She is currently on intravenous (IV) Zosyn and Juan Carlos nebs with improvement of her symptoms. She is also receiving IV pantoprazole for the past five days and was switched to oral pantoprazole. Usually the patient is not oxygen dependent. She uses her nebulizers about twice a day and follows up with Dr. Leo. PAST MEDICAL HISTORY: 1. Severe bronchiectasis. 2. History of Pseudomonas infection for the past 10 years. 3. E-coli bacteremia. 4. C difficile colitis August 2018. 5. Chronic kidney disease stage III. 6. Thrombocytopenia, never smoked. PAST SURGICAL HISTORY: 1. Upper gastrointestinal (GI) endoscopy done by Dr. Drew 03/2018 showed a small hiatus hernia. 2. 12/2017 endoscopy and colonoscopy. ALLERGIES: SULFA, BRIMONIDINE, CEPHALEXIN, DICLOFENAC, DORZOLAMIDE, DOXYCYCLINE, BENTYL, LATANOPROST, LEVOFLOXACIN, MOXIFLOXACIN. LABORATORY DATA: White count was 10 on admission, currently 7.6, hemoglobin 9.2, hematocrit 27.1, platelets 128, 53% neutrophils, 22% lymphocytes, 11% monocytes, 10% eosinophils. Sodium 143, potassium 3.7, chloride 116, bicarb 23, BUN 13, creatinine 1.08, glucose 93, calcium 7.8, CRP 2.04. Immunoglobulin IgG 1460, IgA 422, IgM 40.9. Blood cultures 10/09, two sets were drawn and were negative. 12/05 urine culture was negative. Sputum culture has few Pseudomonas fluorescens, many white cells, normal carol present as well. No susceptibility testing done. IMAGING: Chest x-ray showed chronic bronchiectatic changes in the left lung worse than the right lung with diffuse advanced parenchymal scarring. No acute findings on a portable chest. CT abdomen and pelvis done on 12/06/2018: Extensive cystic changes in the left lung base with bronchiectasis. Interstitial and cystic changes on the right side. Small hiatus hernia. Mild bladder wall thickening. No abdominal aortic aneurysm. No enlarged lymph nodes, no splenomegaly. No masses, mild gastritis. Nephrolithiasis without obstructing stones and cholelithiasis without acute cholecystitis. PHYSICAL EXAMINATION: GENERAL: On physical exam she is a frail looking female in no acute distress, coughing with thick yellowish sputum, large amounts. VITAL SIGNS: Temperature is 97.9, pulse 88, respirations 17, blood pressure was 112/55, Oxygen sat 96% on room air. She has fever of 100.5 on 12/06. The patient has received a blood transfusion. HEART: Normal S1-S2. No murmurs. LUNGS: Diffuse expiratory wheezes bilaterally, diffuse rhonchi and crackles. Poor air entry. ABDOMEN: Soft, nontender. No hepatosplenomegaly. BACK: No costovertebral angle (CVA) or lumbosacral tenderness. EXTREMITIES: No clubbing, cyanosis or no edema. HEENT: Oropharynx dry. NECK: Supple. No jugular venous distention (JVD). IMPRESSION: This is a 78-year-old female with acute exacerbation of chronic bronchiectasis. The patient is chronically colonized with Pseudomonas most recently fluorescens. There is only a few Pseudomonas on sputum CX She stated that she had an upper respiratory infection about two weeks prior to admission which could have triggered this bronchiectatic episodes rather than the Pseudomonas which she has been chronically colonized with. In this setting of history of Clostridium difficile in the past three months in August, I am concerned that if she stays on Zosyn she will develop recurrent Clostridium (C) difficile. She is currently day number 7 of IV Zosyn along with tobramycin nebs. The patient has clinically improved. Also the exacerbation could have been triggered by anemia increasing and leading to increased shortness of breath. PLAN: Discontinue IV Zosyn. Continue Juan Carlos nebs. Try to get authorization for tobramycin nebs at home which would decrease the chances of her having recurrent C difficile. She would definitely benefit from being on tobramycin nebs every other month at a dose of 300 mg twice a day, 28 days on and 28 days off. Obtain procalcitonin to monitor and see if she really had a bacterial exacerbation or she had an exacerbation due to anemia and a viral illness. Consult patient and family services (PFS) for tobramycin nebs for authorization. Obtain immunoglobulin level to rule out immunodeficiency as the patient has recurrent pneumonias. MTDD
[2018-12-13] MEDS: PANTOPRAZOLE 40MG TAB (PROTONIX) PO SCH ×2 (08:17→21:00)
[2018-12-13] MEDS ORDERED: TOBR1NEB INH (09:15)
[2018-12-13] MEDS ORDERED: PANT40TA3 PO (09:16)
[2018-12-13 14:00] VITALS: BP 130/80
--- NOTE | 2018-12-13 17:10 | DSES ---
DATE OF ADMISSION: 12/06/2018 DATE OF DISCHARGE: CONSULTANTS: Dr. José Lazo, infectious disease specialist. Dr. Sánchez, systems checkout mechanic. PROCEDURES DURING THIS ADMISSION: Esophagogastroduodenoscopy (EGD) with clips placed on 12/07/2018. PRIMARY DISCHARGE DIAGNOSES: 1. Nonbleeding gastric ulcer with clean ulcer base. 2. Hemorrhagic gastropathy, clips were placed. 3. LA grade D reflux and erosive esophagitis. 4. Pseudomonas fluorescens with acute exacerbation of chronic bronchiectasis. 5. Acute gastrointestinal bleed with blood loss anemia with 4 units of red blood cell transfused. 6. Acute blood loss anemia secondary to nonbleeding gastric ulcer and erosive esophagitis. 7. Hemorrhagic gastropathy. 8. Severe reflux. 9. Iron deficiency anemia. 10. History of Clostridium (C.) difficile in 08/2018. 11. Chronic kidney disease stage III. 12. Glaucoma. DISCHARGE MEDICATIONS: - tobramycin nebulized 300 mg twice a day for 28 days and then off for 28 days for chronic suppressive therapy - Protonix 40 mg twice a day - albuterol inhaled twice a day - vitamin C 250 mg by mouth three times a day - calcium and vitamin D one tablet daily - multivitamin one tablet daily FOLLOWUP INSTRUCTIONS: The patient is to followup with Dr. Sánchez for repeat EGD and check for healing of gastric ulcer due to increased risk of malignancy with gastric ulcers. Followup with Dr. José Lazo as an outpatient for chronic suppressive therapy for chronic pseudomonas colonization in light of recent exacerbation of chronic bronchiectasis. HOSPITAL COURSE: This is a 78-year-old female who presented to the emergency room with coffee ground emesis, black tarry stools, weakness and dizziness, admitted for symptomatic anemia due to acute GI bleed and blood loss. The patient had a presenting hemoglobin of 7.4 and was transfused 4 units of blood to 11. She underwent EGD and was found to have a nonbleeding gastric ulcer with a clean base, erosive esophagitis, and was started on Protonix 40 mg IV twice a day and changed to 40 mg by mouth twice a day for 1 month. She is to have a followup with Dr. Sánchez for repeat EGD as outpatient to document healing of the gastric ulcer. During this admission, the patient was evaluated for shortness of breath. Chest x-ray showed chronic findings of cystic bronchiectasis, severe fibrosis superimposed on bronchiectasis resulting in diffuse volume loss. Oxygen saturations were 93 to 97% on room air. White count 11.9 on admission and discharge with a normal white count of 8.2. Dr. José Lazo was consulted who agreed with intravenous Zosyn, as well as tobramycin nebulizer treatment. She completed 7 days of intravenous Zosyn, along with Tobramycin nebulizers with recommendations for 28 days on of the tobramycin and then 28 days off to obtain a procalcitonin to see if she had bacterial infection. Patient and family services (PFS) was consulted for preauthorization for tobramycin. The patient passed a home safety evaluation and was saturating 91 to 96% on room air. The patient is discharged in stable condition. LABORATORIES: On discharge: White count 8.2, hemoglobin 9.4, hematocrit 28, platelet count 164. Sodium 141, potassium 4, chloride 114, bicarbonate 23, BUN 11, creatinine 1.07, glucose of 82. Pseudomonas fluorescens on 12/06/2018 sputum culture. Blood culture, two sets, 12/06/2018, were negative. Urine culture on 12/05/2018 was contaminated. Repeat urine culture on 12/07/2018 showed no growth. IMAGING STUDIES: Vascular ultrasound on 12/05/2018 showed no scintigraphic evidence of deep vein thrombosis (DVT). Chest x-ray on 12/05/2018 showed chronic advanced thick bronchiectasis, left more severe than right with scarring on the left with lung volume loss, unchanged. No superimposed acute cardiopulmonary findings. CT of the abdomen and pelvis on 12/06/2018 showed cholelithiasis, mild gastritis, right colonic thickening, colonic diverticulosis, trace fluid in the pancreatic or duodenal groove, may be secondary to gastritis. Mild wall thickening in the urinary bladder on the right suggesting cystitis, nephrolithiasis without obstructing stones or hydronephrosis, small periesophageal hiatal hernia. Repeat chest x-ray 12/07/2018 showed chronic stable findings. No acute cardiopulmonary findings. Time spent on discharge: 30 minutes. MTDD
[2018-12-13 22:00] VITALS: BP 121/62
[2018-12-14 06:00] VITALS: BP 135/85
[2018-12-14] MEDS: TOBRAMYCIN INHAL 300 MG/5 ML SOLN INH SCH ×2 (06:13→19:58)
[2018-12-14] MEDS: ALBUTEROL SULFATE 2.5 MG/0.5 ML INH NEB SOLN NEB SCH ×2 (06:13→15:24)
[2018-12-14 06:42] LABS: BASO % 0.4 % (0.0-1.0); EOS # 0.8 10^3/uL (0.0-0.5); EOS % 8.4 % (0.0-3.0); HEMATOCRIT 30.3 % (36.0-47.0); HEMOGLOBIN 9.7 g/dl (12.0-15.5); LYMPH # 2.3 10^3/uL (1.5-5.0); LYMPH % 25.1 % (24.0-44.0); MEAN CORPUSCULAR VOLUME 93.8 fl (80.0-96.0); MONO % 10.2 % (0.0-5.0); NEUTROPHILS % 53.3 % (36.0-66.0); PLATELET COUNT, AUTOMATED 194 10^3/uL (150-450); RED BLOOD COUNT 3.23 10^6/uL (4.00-5.40); WHITE BLOOD COUNT 9.3 10^3/uL (4.0-10.0)
[2018-12-14 06:55] LABS: CALCIUM LEVEL 8.4 MG/DL (8.8-10.2); CREATININE FOR GFR 1.17 MG/DL (0.55-1.30); GLOMERULAR FILTRATION RATE 47.5 (>39); POTASSIUM SERUM 4.2 MEQ/L (3.5-5.1)
[2018-12-14] MEDS: PANTOPRAZOLE 40MG TAB (PROTONIX) PO SCH ×2 (08:09→21:24)
[2018-12-14 14:00] VITALS: BP 119/63
[2018-12-14 22:00] VITALS: BP 161/88
[2018-12-15] VITALS: BP 115/60
[2018-12-15] MEDS: ALBUTEROL SULFATE 2.5 MG/0.5 ML INH NEB SOLN NEB SCH ×3 (00:09→16:05)
[2018-12-15 06:00] VITALS: BP 110/56
[2018-12-15] MEDS: TOBRAMYCIN INHAL 300 MG/5 ML SOLN INH SCH ×2 (07:11→17:07)
[2018-12-15] MEDS: PANTOPRAZOLE 40MG TAB (PROTONIX) PO SCH (09:20)
[2018-12-15 14:00] VITALS: BP 115/68
== END 2018-12-15 17:46 | disposition home health service (06) | DRG 190 ==
LOC: M ED 20:29 → M ED INP 12-06 02:15 → M MSPAV 12-06 03:01 → M ICU 12-06 20:38 → M MSPAV 12-08 14:48
PROVIDERS: ADMIT Internal Medicine; ATTEND General Practice
PROC: 30233N1 Transfusion of Nonautologous Red Blood Cells into Peripheral Vein, Percutaneous Approach (ICD-10-PCS; 2018-12-06)
PROC: 0W3P8ZZ Control Bleeding in Gastrointestinal Tract, Via Natural or Artificial Opening Endoscopic (ICD-10-PCS; principal; 2018-12-07 09:07)
DX: J47.1 Bronchiectasis with (acute) exacerbation (principal); K29.71 Gastritis, unspecified, with bleeding; N39.0 Urinary tract infection, site not specified; D62 Acute posthemorrhagic anemia; R53.1 Weakness; K31.9 Disease of stomach and duodenum, unspecified; K21.0 Gastro-esophageal reflux disease with esophagitis; H40.9 Unspecified glaucoma; K25.9 Gastric ulcer, unspecified as acute or chronic, without hemorrhage or perforation; D50.9 Iron deficiency anemia, unspecified; N18.3 Chronic kidney disease, stage 3 (moderate); Z77.22 Contact with and (suspected) exposure to environmental tobacco smoke (acute) (chronic); Z79.899 Other long term (current) drug therapy; Z88.1 Allergy status to other antibiotic agents; Z88.2 Allergy status to sulfonamides; Z88.8 Allergy status to other drugs, medicaments and biological substances; Z98.41 Cataract extraction status, right eye; Z98.42 Cataract extraction status, left eye

== ENCOUNTER → 2018-12-18 | Outpatient (REF) | payer MEDICARE ==
[~2018-12-18] MED LIST changes: +PANT40TA3 PO; +TOBR1NEB INH
[2018-12-18 13:55] LABS: BASO # 0.1 10^3/uL (0.0-0.2); BASO % 0.6 % (0.0-1.0); EOS # 0.3 10^3/uL (0.0-0.5); HEMATOCRIT 33.5 % (36.0-47.0); HEMOGLOBIN 10.3 g/dl (12.0-15.5); LYMPH # 1.4 10^3/uL (1.5-5.0); LYMPH % 14.6 % (24.0-44.0); MEAN CORPUSCULAR HEMOGLOBIN 29.5 pg (27.0-33.0); MEAN CORPUSCULAR HGB CONC 30.7 g/dl (32.0-36.5); MONO # 0.8 10^3/uL (0.0-0.8); MONO % 8.7 % (0.0-5.0); NEUTROPHILS # 6.7 10^3/uL (1.5-8.5); NEUTROPHILS % 72.5 % (36.0-66.0); PLATELET COUNT, AUTOMATED 169 10^3/uL (150-450); RED BLOOD COUNT 3.49 10^6/uL (4.00-5.40); WHITE BLOOD COUNT 9.3 10^3/uL (4.0-10.0)
[2018-12-18 14:20] LABS: CALCIUM LEVEL 8.8 MG/DL (8.8-10.2); CREATININE FOR GFR 1.27 MG/DL (0.55-1.30); GLOMERULAR FILTRATION RATE 43.2 (>39); POTASSIUM SERUM 4.3 MEQ/L (3.5-5.1)
== END ==
LOC: M SFHCPLAZ 11:42
PROVIDERS: ATTEND Family Medicine
DX: D62 Acute posthemorrhagic anemia (principal)

== ENCOUNTER 2018-12-22 14:16 | Inpatient (IN) | payer MEDICARE ==
[~2018-12-22] VITALS: Ht 152.4 cm; Wt 57.0 kg
[2018-12-22] MEDS: IPRATROPIUM 0.5MG/ALBUTEROL 2.5MG INH SOL UD 3ML (DUONEB)(J7620) NEB PRN ×2 (14:44→15:08)
[2018-12-22 14:48] LABS: ABG BASE EXCESS 1.3 (-2.0-2.0); ABG HCO3 26.3 MEQ/L (22.0-26.0); ABG O2 SATURATION 91.3 % (95.0-99.0); ABG PARTIAL PRESSURE O2 60.2 mmHg (75.0-100.0); ABG STANDARD HCO3 25.5 MEQ/L (22.0-26.0); ABG TOTAL CO2 27.6 MEQ/L (23.0-31.0); ABG pH (ARTERIAL) 7.404 UNITS (7.350-7.450)
[2018-12-22 14:52] LABS: BASO # 0.1 10^3/uL (0.0-0.2); BASO % 0.7 % (0.0-1.0); EOS # 0.5 10^3/uL (0.0-0.5); EOS % 4.8 % (0.0-3.0); HEMATOCRIT 34.4 % (36.0-47.0); HEMOGLOBIN 10.9 g/dl (12.0-15.5); LYMPH # 1.8 10^3/uL (1.5-5.0); LYMPH % 17.2 % (24.0-44.0); MEAN CORPUSCULAR HEMOGLOBIN 30.4 pg (27.0-33.0); MEAN CORPUSCULAR HGB CONC 31.7 g/dl (32.0-36.5); MEAN CORPUSCULAR VOLUME 96.1 fl (80.0-96.0); MONO # 0.9 10^3/uL (0.0-0.8); MONO % 9.1 % (0.0-5.0); NEUTROPHILS % 67.8 % (36.0-66.0); PLATELET COUNT, AUTOMATED 213 10^3/uL (150-450); RED BLOOD COUNT 3.58 10^6/uL (4.00-5.40); WHITE BLOOD COUNT 10.3 10^3/uL (4.0-10.0)
[2018-12-22 15:22] LABS: ALBUMIN 2.7 GM/DL (3.2-5.2); ALT/SGPT 22 U/L (12-78); BILIRUBIN,DIRECT 0.2 MG/DL (0.0-0.2); BILIRUBIN,TOTAL 0.6 MG/DL (0.2-1.0); BLOOD UREA NITROGEN 10 MG/DL (7-18); CALCIUM LEVEL 9.1 MG/DL (8.8-10.2); CARBON DIOXIDE LEVEL 31 MEQ/L (21-32); CHLORIDE LEVEL 102 MEQ/L (98-107); CK-MB VALUE MASS 3.4 NG/ML (<3.6); CPK CREATINE PHOSPHOKINASE 125 U/L (26-192); CREATININE FOR GFR 1.09 MG/DL (0.55-1.30); GLOMERULAR FILTRATION RATE 51.5 (>39); GLUCOSE, FASTING 126 MG/DL (70-100); MB/CK RELATIVE INDEX 2.72 (< OR =4); NT-PRO BNP 544 PG/ML (<450); POTASSIUM SERUM 4.6 MEQ/L (3.5-5.1); SODIUM LEVEL 137 MEQ/L (136-145); TROPONIN I < 0.02 NG/ML (< 0.10)
--- NOTE | 2018-12-22 17:42 | REP ---
HISTORY: Cough and dyspnea. COMPARISON: Multiple, the latest 12/07/2018. Marked chronic abnormal cystic changes and patchy opacities are again seen throughout all of the left hemithorax. This is completely unchanged and has been so at least as far back as 12/12/2016. There are chronic right lung changes, also stable. No definite new abnormal opacities or pleural effusions seem to have developed in this limited portable exam. The technique utilized in obtaining the radiograph has magnified the cardiac silhouette and accentuated the interstitial markings. There is no change in the osseous structures. The heart is completely silhouetted out by the abnormal opacities. IMPRESSION: Marked but stable appearing chronic changes. Electronically Signed by Dayday Casanova DO 12/25/2018 02:32 P
[2018-12-22] MEDS ORDERED: TOBR1NEB INH (19:09)
[2018-12-22] MEDS ORDERED: PANT-23 PO (19:09)
--- NOTE | 2018-12-22 19:10 | HPEPDOC ---
[facility] Medical History & Physical Date of Admission Dec 22, 2018 Date of Service: Dec 22, 2018 Primary Care Physician: MOHINI SHELTON MD Attending Physician: AYSHA KWON MD History and Physical TIME OF SERVICE: 7:25 PM CHIEF COMPLAINT: Shortness of breath HISTORY OF PRESENT ILLNESS: This is a 78-year-old female who was sent to the ED for evaluation by her home RN because her oxygen saturation was abnormal. The patient reports having shortness of breath for about 1 month that makes it difficult for her to get up and walk. The shortness of breath is less severe when she sits down and has improved slightly after receiving oxygen in the ED. Associated symptoms include sensation of her heart racing when she gets up to walk, fevers, chills and chronic cough productive of yellow sputum. She denies having chest pain, and denies having any sick contacts. She was recently admitted for management of a nonbleeding gastric ulcer and discharged on December 15. REVIEW OF SYSTEMS: 12 point review of systems negative except as listed in HPI PAST MEDICAL/ SURGICAL HISTORY: Bronchiectasis with Pseudomonas colonization. History of iron deficiency anemia History of non-bleeding gastric ulcer/hemorrhagic gastropathy requiring clip placement / History of adenomatous polyps of the colon. Severe GERD/erosive esophagitis History of C. difficile colitis CKD 3 History of Chronic Thrombocytopenia. Status post bilateral cataract surgery SOCIAL HISTORY: Smoker FAMILY HISTORY: Mother had emphysema ALLERGIES: Please see below. HOME MEDICATIONS: Please see below. PHYSICAL EXAMINATION: VITAL SIGNS: Please see below. GENERAL APPEARANCE: Slim built, well-developed, not in apparent distress HEENT: Normocephalic, atraumatic, cyanotic, nasal cannula in place CARDIOVASCULAR: Tachycardic. No murmurs, rubs or gallops LUNGS: She is using accessory muscles to breathe. Is unable to speak full sentences without having to stop taking breaths. Is coughing occasionally. Has expiratory crackles bilaterally ABDOMEN: Slightly distended. Not tender on palpation MUSCULOSKELETAL: Range of motion is intact in all 4 extremities is no lower extremity edema NEUROLOGICAL:. Cranial nerves II-12 are grossly intact. Speech is not dysarthric PSYCHIATRIC: Alert and oriented, able to understand and follow commands LABORATORY DATA: See below. IMAGING: Chest x-ray " IMPRESSION: Marked but stable appearing chronic changes." ASSESSMENT: Ms Miller is a 78-year-old female with a past medical history of bronchiectasis, iron deficiency anemia, GI bleed, and CKD 3 who is admitted for evaluation of SIRS and management of dyspnea, likely secondary to a bronchiectasis exacerbation. PLAN: 1. SIRS Source to be determined SIRS criteria include respiratory rate of 32 , heart rate of 142, and oxygen saturation of 87 Possible source may be viral infection She also has nondiabetic hyperglycemia Qsofa Score = 1 = not high risk Chest x-ray does not show a lesion Plan: admit to PCU / telemetry / Sepsis protocol w lactic acid / will give IV fluids/and one dose of Zosyn / follow-up influenza panel and blood cultures / if influenza panel is negative patient may need CT of the chest to definitively rule out pneumonia /Acetaminophen PRN for fever 2. Dyspnea possibly 2/2 Bronchiectasis exacerbation caused by a viral infection or change in the weather or smoking Her oxygen saturation has been in the 80s on room air and her ABG showed a low PO2 The troponin is unremarkable. The BNP is 544. I was unable to find the results of an old echo. Plan: Telemetry/continuous pulse oximetry/elevate head of bed/ aspiration precautions/monitor I's and O's and daily weights/follow-up respiratory panel and d-dimer/follow-up echocardiogram / treatment for bronchiectasis exacerbation with supplemental O2 Dunebs Q6H, Albuterol Q4HP, Prednisone + PPI, Tessalon Pearls / f/u repeat ABG in the morning 3.CKD 3 At baseline Plan: Follow-up BMP 4. Tobacco abuse. Plan: Smoking cessation education/nicotine patch DVT prophylaxis with Lovenox. Disposition pending clinical course / will consult PFS for discharge planning & PT for early mobilization to prevent deconditioning during this hospital stay Vital Signs Vital Signs Date Time Temp Pulse Resp B/P (MAP) Pulse Ox O2 Delivery O2 Flow Rate FiO2 12/22/18 18:46 142 87 12/22/18 18:45 173/84 (113) 12/22/18 14:16 97.0 32 Room Air Laboratory Data Labs 24H Laboratory Tests 2 12/22/18 14:36: Immature Granulocyte % (Auto) 0.4, Neutrophils (%) (Auto) 67.8H, Lymphocytes (%) (Auto) 17.2L, Monocytes (%) (Auto) 9.1H, Eosinophils (%) (Auto) 4.8H, Basophils (%) (Auto) 0.7, Neutrophils # (Auto) 7.0, Lymphocytes # (Auto) 1.8, Monocytes # (Auto) 0.9H, Eosinophils # (Auto) 0.5, Basophils # (Auto) 0.1, Nucleated Red Blood Cells % (auto) 0.0, Anion Gap 4L, Glomerular Filtration Rate 51.5, Calcium Level 9.1, Total Bilirubin 0.6, Direct Bilirubin 0.2, Aspartate Amino Transf (AST/SGOT) 42H, Alanine Aminotransferase (ALT/SGPT) 22, Alkaline Phosphatase 124H, Total Creatine Kinase 125, Creatine Kinase MB 3.4, Creatine Kinase MB Relative Index 2.72, Troponin I < 0.02, BX-[id number]-Type Natriuretic Peptide 544H, Total Protein 8.0, Albumin 2.7L, Albumin/Globulin Ratio 0.51L 12/22/18 14:39: Blood Gas Bicarbonate Standard 25.5, Arterial Blood pH 7.404, Arterial Blood Partial Pressure CO2 43.0, Arterial Blood Partial Pressure O2 60.2L, Arterial Blood Total CO2 27.6, Arterial Blood HCO3 26.3H, Arterial Blood Base Excess 1.3, Arterial Blood Oxygen Saturation 91.3L CBC/BMP Laboratory Tests 12/22/18 14:36 Microbiology Microbiology 12/22/18 Blood Culture, Received Pending Home Medications Scheduled Ascorbic Acid (Vitamin C) 250 Mg Tab, 250 MG PO DAILY Calcium Carbonate/Vitamin D3 (Oyster Shell 500-Vit D3 200 Tb) 1 Tab Tab, 1 TAB PO DAILY Multivitamins (Thera M Plus Tablet) 1 Tab Tab, 1 TAB PO DAILY Pantoprazole Sodium (Pantoprazole Sodium) 40 Mg Tablet.dr, 40 MG PO BID Tobramycin in 0.225% Sod Chlor (Tobramycin 300 mg/5 ml Ampule) 300 Mg/5 Ml Ampul.neb, 300 MG INH BID PRESCRIBED AT DISCHARGE OF LAST HOSPITAL STAY (12/15/18) X28 DAY SUPPLY Scheduled PRN Albuterol Sulf (Albuterol Sulfate) 2.5 Mg/3 Ml Nebu, 2.5 MG INH TID PRN for SOB/WHEEZING Allergies Coded Allergies: latanoprost (Verified Allergy, Severe, 12/05/18) levofloxacin (Verified Allergy, Severe, 12/05/18) bimatoprost (Verified Allergy, Intermediate, EYE REDNESS, 12/05/18) cephalexin (Verified Allergy, Intermediate, 12/05/18) dorzolamide (Verified Allergy, Intermediate, CONGESTED,COUGH, 12/05/18) timolol (Verified Allergy, Intermediate, CONGESTED,COUGH, 12/05/18) brimonidine (Verified Allergy, Unknown, 12/05/18) doxycycline (Verified Allergy, Unknown, 12/05/18) travoprost (Verified Adverse Reaction, Severe, EYE PAIN HEART RACING, 12/05/18) Sulfa (Sulfonamide Antibiotics) (Verified Adverse Reaction, Intermediate, GI ISSUES, 12/05/18) diclofenac (Verified Adverse Reaction, Intermediate, VOMITS, 12/05/18) moxifloxacin (Verified Adverse Reaction, Mild, DIARRHEA, 12/05/18) A-FIB/CHADSVASC A-FIB History Current/History of A-Fib/PAF?: No Current PO Anticoag Therapy: No AYSHA KWON MD Dec 22, 2018 19:10
[2018-12-22] MEDS ORDERED: SODIUM CHLORIDE 0.9% 1000ML IV SCH (19:15)
[2018-12-22] MEDS ORDERED: ACETAMINOPHEN TAB 650MG DOSE (2X325MG) PO PRN (19:15)
[2018-12-22] MEDS: TOBRAMYCIN INHAL 300 MG/5 ML SOLN INH SCH (20:00)
[2018-12-22] MEDS ORDERED: methylPREDNISolone INJ 125 MG/2 ML VIAL (J2930) IV STA (20:53)
[2018-12-22] MEDS ORDERED: ALBUTEROL SULFATE 2.5 MG/0.5 ML INH NEB SOLN NEB PRN (21:00)
[2018-12-22] MEDS ORDERED: PIPERACILLIN/TAZOBACTAM SOD 2.25 GM in D5W MINI-BAG PLUS 50 ML IV ONE (21:00)
[2018-12-22 21:27] LABS: INFLUENZA A AMPLIFICATION NEGATIVE (NEGATIVE); INFLUENZA B AMPLIFICATION NEGATIVE (NEGATIVE)
[2018-12-22 21:30] VITALS: BP 160/78; O2SAT 95
--- NOTE | 2018-12-22 21:32 | ECGEPIP ---
[facility] - ED Test Date: 2018-12-22 Pat Name: MONA BAH Department: Room: - Gender: Female Sand Bobber: AB : 1940 Requested By: ANDREW Pool Order Number: [id number] Reading MD: Deb Salvador Measurements Intervals [place] Rate: 112 P: 96 NE: 162 QRS: 69 QRSD: 80 T: 73 QT: 321 QTc: 439 Interpretive Statements SINUS TACHYCARDIA ABNORMAL RHYTHM ECG NSTTW abnormalities DECREASED RATE 12/06/18 Electronically Signed on 12-22-2018 21:32:16 EDT by Deb Salvador
[2018-12-22] MEDS: BENZONATATE 100 MG CAP PO SCH (21:48)
[2018-12-22 22:30] VITALS: O2SAT 95
[2018-12-22 22:37] VITALS: O2SAT 97
[2018-12-22 23:30] VITALS: O2SAT 97
[2018-12-23] VITALS (23 sets, daily range): BP systolic 111–154; BP diastolic 56–78; O2SAT 84–99
[2018-12-23] MEDS: IPRATROPIUM 0.5MG/ALBUTEROL 2.5MG INH SOL UD 3ML (DUONEB)(J7620) NEB SCH ×7 (01:30→18:00)
[2018-12-23 05:36] LABS: HEMATOCRIT 31.6 % (36.0-47.0); HEMOGLOBIN 9.8 g/dl (12.0-15.5); MEAN CORPUSCULAR HEMOGLOBIN 29.4 pg (27.0-33.0); MEAN CORPUSCULAR VOLUME 94.9 fl (80.0-96.0); PLATELET COUNT, AUTOMATED 147 10^3/uL (150-450); RED BLOOD COUNT 3.33 10^6/uL (4.00-5.40); WHITE BLOOD COUNT 5.8 10^3/uL (4.0-10.0)
[2018-12-23 05:48] LABS: ABG BASE EXCESS -0.5 (-2.0-2.0); ABG HCO3 24.1 MEQ/L (22.0-26.0); ABG O2 SATURATION 98.1 % (95.0-99.0); ABG PARTIAL PRESSURE CO2 39.5 mmHg (35.0-45.0); ABG PARTIAL PRESSURE O2 101.8 mmHg (75.0-100.0); ABG TOTAL CO2 25.3 MEQ/L (23.0-31.0); ABG pH (ARTERIAL) 7.403 UNITS (7.350-7.450)
[2018-12-23 05:55] LABS: CALCIUM LEVEL 8.4 MG/DL (8.8-10.2); CREATININE FOR GFR 1.03 MG/DL (0.55-1.30); MAGNESIUM LEVEL 1.8 MG/DL (1.8-2.4); POTASSIUM SERUM 4.2 MEQ/L (3.5-5.1)
[2018-12-23] MEDS: BENZONATATE 100 MG CAP PO SCH ×3 (06:06→21:05)
[2018-12-23] MEDS: TOBRAMYCIN INHAL 300 MG/5 ML SOLN INH SCH ×2 (07:17→20:30)
[2018-12-23] MEDS: ACETYLCYSTEINE 20% 4 ML VIAL (200MG/ML) INH SCH ×2 (08:00→17:13)
[2018-12-23] MEDS: PANTOPRAZOLE 40MG TAB (PROTONIX) PO SCH (08:03)
[2018-12-23] MEDS: predniSONE 20 MG TAB PO SCH (08:03)
[2018-12-23] MEDS: ENOXAPARIN 40 MG/0.4 ML SYRINGE (J1650) SC SCH (08:04)
[2018-12-23] MEDS: NICOTINE 7 MG/24 HR TRANSDERMAL TD SCH (08:04)
--- NOTE | 2018-12-23 12:15 | IPNPDOC ---
Date Seen The patient was seen on 12/23/18. Progress Note SUBJECTIVE: Patient reports her shortness of breath has improved this morning. She still has some "rattling" when she breathes and is coughing up phlegm. She will work on producing sputum for sputum culture. She denies any recent fevers, chills, nausea or vomiting. She is not having any issues with bowel movements or urinating. OBJECTIVE PHYSICAL EXAMINATION: VITAL SIGNS: Please see below. GENERAL APPEARANCE: Laying in bed, very frail, shaking, appears stated age, no acute distress, calm, cooperative HEENT: EOMI, PERRLA, neck is supple with no thyromegaly or lymphadenopathy RESPIRATORY: Rhonchi are heard in all lung lewis as well as some upper airway crackles on expiration, she is speaking in full sentences, intermittently coughing CARDIOVASCULAR: no JVD, RRR,no murmurs/rubs/gallops ABDOMEN: Soft, nontender to palpation in all four quadrants, no masses/organomegaly EXTREMITIES: no clubbing, cyanosis or edema noted NEUROLOGICAL: Cranial nerves II through XII are intact, no focal deficits are appreciated, normal speech PSYCHIATRIC: Somewhat anxious affect Skin: No rashes or ulcers. LN: No significant cervical or inguinal lymphadenopathy LABORATORY DATA, IMAGING STUDIES, MICROBIOLOGY: Please see below. Echocardiogram: None ordered DVT prophylaxis ordered?: Lovenox ASSESSMENT AND PLAN: This is a 78-year-old female with history of cystic bronchiectasis with pseudomonas colonization who presented to the ED with dyspnea and cough producing yellow sputum. PROBLEMS: 1. Dyspnea: Most likely secondary to bronchiectasis flare. She reports that her shortness of breath has improved today. She still has some upper airway rattling noises and rhonchi throughout all lung lewis. Given her history of bronchiectasis, unsure if this is her baseline. She reports gradually worsening shortness of breath over a month time period. Follows with Dr. Leo. She has been using her nebulizer with no relief of her symptoms. She is on inhaled Tobramycin at home. -Acapella ordered -Ronni scheduled -Continue home inhaled Tobramycin -Patient is currently on 3L NC but with normal ABG -BNP slightly elevated at 544. Echo ordered. -Continue Prednisone 40mg daily -Sputum culture and Procalcitonin pending to r/o bacterial PNA although less likely given normal WBC and no fevers -Pulmonary toilet: Acapella, DunoNebs, Percussion vest, Mucomyst -Zosyn for empiric coverage with plan to deescalate with sputum cultures 2. CKD II: -Cr stable -Meds renally dosed 3. Nicotene dependence: -Nicoderm patch DISPOSITION: Pending improvement in shortness of breath, sputum cultures, Echo VS, I&O, 24H, Fishbone Vital Signs/I&O Vital Signs Date Time Temp Pulse Resp B/P (MAP) Pulse Ox O2 Delivery O2 Flow Rate FiO2 12/23/18 08:08 2.0 12/23/18 08:00 97.2 101 17 131/62 (85) 97 Nasal Cannula I&O- Last 24 Hours up to 6 AM 12/23/18 06:00 Intake Total 1325 ml Output Total 750 ml Balance 575 ml Laboratory Data 24H LABS Laboratory Tests 2 12/22/18 14:36: Immature Granulocyte % (Auto) 0.4, Neutrophils (%) (Auto) 67.8H, Lymphocytes (%) (Auto) 17.2L, Monocytes (%) (Auto) 9.1H, Eosinophils (%) (Auto) 4.8H, Basophils (%) (Auto) 0.7, Neutrophils # (Auto) 7.0, Lymphocytes # (Auto) 1.8, Monocytes # (Auto) 0.9H, Eosinophils # (Auto) 0.5, Basophils # (Auto) 0.1, Nucleated Red Blood Cells % (auto) 0.0, Anion Gap 4L, Glomerular Filtration Rate 51.5, Lactic Acid Level 2.3*H, Calcium Level 9.1, Total Bilirubin 0.6, Direct Bilirubin 0.2, Aspartate Amino Transf (AST/SGOT) 42H, Alanine Aminotransferase (ALT/SGPT) 22, Alkaline Phosphatase 124H, Total Creatine Kinase 125, Creatine Kinase MB 3.4, Creatine Kinase MB Relative Index 2.72, Troponin I < 0.02, ZM-Uma-G-Type Natriuretic Peptide 544H, Total Protein 8.0, Albumin 2.7L, Albumin/Globulin Ratio 0.51L 12/22/18 14:39: Blood Gas Bicarbonate Standard 25.5, Arterial Blood pH 7.404, Arterial Blood Partial Pressure CO2 43.0, Arterial Blood Partial Pressure O2 60.2L, Arterial Blood Total CO2 27.6, Arterial Blood HCO3 26.3H, Arterial Blood Base Excess 1.3, Arterial Blood Oxygen Saturation 91.3L 12/22/18 14:52: Influenza Type A (RT-PCR) NEGATIVE, Influenza Type B (RT-PCR) NEGATIVE, Respiratory Syncytial Virus (RT-PCR NEGATIVE 12/22/18 20:55: D-Dimer, Quantitative 2546.45H 12/22/18 23:32: Bedside Glucose (Misc Panel) 116H 12/23/18 00:49: Lactic Acid Followup at 4 Hours 0.9 12/23/18 05:15: 12/23/18 05:17: Nucleated Red Blood Cells % (auto) 0.0, Anion Gap 3L, Glomerular Filtration Rate 55.0, Calcium Level 8.4L, Magnesium Level 1.8 12/23/18 05:36: Blood Gas Bicarbonate Standard 24.0, Arterial Blood pH 7.403, Arterial Blood Partial Pressure CO2 39.5, Arterial Blood Partial Pressure O2 101.8H, Arterial Blood Total CO2 25.3, Arterial Blood HCO3 24.1, Arterial Blood Base Excess -0.5, Arterial Blood Oxygen Saturation 98.1 CBC/BMP Laboratory Tests 12/22/18 14:36 12/23/18 05:17 Microbiology Microbiology 12/23/18 Gram Stain, Received Pending 12/23/18 Sputum Culture, Received Pending 12/23/18 Blood Culture, Received Pending 12/22/18 Blood Culture, Received Pending GME ATTESTATION GME ATTESTATION My faculty preceptor for this patient encounter was physically present during the encounter and was fully available. All aspects of the patient interview, examination, medical decision making process, and medical care plan development were reviewed and approved by the faculty preceptor. The faculty preceptor is aware and concurs with the plan as stated in the body of this note and will attest to such by his/her cosignature. ATTENDING NOTE I, Marty Ochoa, have independently examined this patient and performed my own physical exam, as well as reviewed the documentation and edited where necessary. I have discussed in detail with the resident / student the findings and plan of treatment as documented by the resident / student and edited their note. I agree with their findings and treatment plan and have edited their documentation. I will continue to follow the patient during this hospital stay. LYNNE ELAINE MD Dec 23, 2018 12:15 MARTY OCHOA MD Dec 23, 2018 15:59
[2018-12-23] MEDS: PIPERACILLIN/TAZOBACTAM SOD 2.25 GM in D5W MINI-BAG PLUS 50 ML IV SCH ×2 (14:02→18:32)
[2018-12-23] MEDS: LEVALBUTEROL 1.25 MG/0.5 ML CONCENTRATE NEB INH SCH (20:30)
[2018-12-24] VITALS (19 sets, daily range): BP systolic 116–136; BP diastolic 56–70; O2SAT 86–98
[2018-12-24] MEDS: PIPERACILLIN/TAZOBACTAM SOD 2.25 GM in D5W MINI-BAG PLUS 50 ML IV SCH ×4 (00:45→18:22)
[2018-12-24] MEDS: BENZONATATE 100 MG CAP PO SCH ×3 (06:39→21:52)
[2018-12-24] MEDS: LEVALBUTEROL 1.25 MG/0.5 ML CONCENTRATE NEB INH SCH ×3 (07:22→20:02)
[2018-12-24] MEDS: ACETYLCYSTEINE 20% 4 ML VIAL (200MG/ML) INH SCH ×2 (07:23→20:02)
[2018-12-24] MEDS: TOBRAMYCIN INHAL 300 MG/5 ML SOLN INH SCH ×2 (07:23→20:02)
[2018-12-24 07:54] LABS: BASO # 0.1 10^3/uL (0.0-0.2); BASO % 0.8 % (0.0-1.0); EOS # 0.1 10^3/uL (0.0-0.5); EOS % 1.3 % (0.0-3.0); HEMATOCRIT 29.4 % (36.0-47.0); HEMOGLOBIN 9.2 g/dl (12.0-15.5); LYMPH # 1.7 10^3/uL (1.5-5.0); LYMPH % 20.7 % (24.0-44.0); MEAN CORPUSCULAR HEMOGLOBIN 29.9 pg (27.0-33.0); MEAN CORPUSCULAR HGB CONC 31.3 g/dl (32.0-36.5); MEAN CORPUSCULAR VOLUME 95.5 fl (80.0-96.0); MONO # 0.8 10^3/uL (0.0-0.8); MONO % 9.1 % (0.0-5.0); NEUTROPHILS # 5.6 10^3/uL (1.5-8.5); NEUTROPHILS % 67.7 % (36.0-66.0); PLATELET COUNT, AUTOMATED 148 10^3/uL (150-450); RED BLOOD COUNT 3.08 10^6/uL (4.00-5.40); WHITE BLOOD COUNT 8.3 10^3/uL (4.0-10.0)
[2018-12-24] MEDS: IPRATROPIUM 0.5MG/ALBUTEROL 2.5MG INH SOL UD 3ML (DUONEB)(J7620) NEB SCH ×3 (08:00→20:00)
[2018-12-24 08:24] LABS: CALCIUM LEVEL 8.3 MG/DL (8.8-10.2); CREATININE FOR GFR 1.36 MG/DL (0.55-1.30); GLOMERULAR FILTRATION RATE 39.9 (>39); MAGNESIUM LEVEL 1.9 MG/DL (1.8-2.4); POTASSIUM SERUM 3.5 MEQ/L (3.5-5.1)
[2018-12-24] MEDS: PANTOPRAZOLE 40MG TAB (PROTONIX) PO SCH (08:44)
[2018-12-24] MEDS: predniSONE 20 MG TAB PO SCH (08:44)
[2018-12-24] MEDS: ENOXAPARIN 40 MG/0.4 ML SYRINGE (J1650) SC SCH (08:45)
[2018-12-24] MEDS: NICOTINE 7 MG/24 HR TRANSDERMAL TD SCH (08:45)
[2018-12-24] MEDS: NS 1,000 ML IV SCH (09:41)
[2018-12-24 10:17] LABS: CLOSTRIDIUM DIFFICILE PCR POSITIVE (NEGATIVE)
[2018-12-24] MEDS ORDERED: GLUCAGON FOR INJ 1 MG VIAL (J1610) SC PRN (11:30)
[2018-12-24] MEDS ORDERED: GLUCOSE 4 GM CHEW TABLET PO PRN (11:30)
[2018-12-24] MEDS ORDERED: DEXTROSE 50% 50 ML SYRINGE IV PRN (11:30)
[2018-12-24] MEDS: VANCOMYCIN ORAL SOL 250MG/5ML ORAL SYRINGE PO SCH ×2 (12:26→17:37)
[2018-12-24] MEDS: HumaLOG INSULIN (NovoLOG) PER UNIT SC SCH ×2 (12:27→17:38)
--- NOTE | 2018-12-24 12:39 | IPNPDOC ---
Text Note Date of Service The patient was seen on 12/24/18. NOTE Subjective: Patient is a 78-year-old female with a history of cystic bronchiectasis with pseudomonas colonization who presented to the ED with dyspnea and cough producing yellow sputum. Patient was seen and examined at the bedside. Patient reports that her breathing is doing better. She reports that she is still coughing. Does not require any supplemental oxygen. She denies any N/V, abdominal pain. Has reported diarrhea. Denies any urinary discomfort. Objective: Vitals (See below) General: Lying in bed, no acute distress, comfortable, AAOx3 HEENT: NC, AT CVS: RRR, +S1S2 Lungs: Fair air entry b/l, diffuse rhonchi bilaterally, faint wheezing noted, no appreciable crackles, Abdomen: Soft, ND, NT Extremities: - Edema, - Calf tenderness Assessment and plan: Shortness of breath - likely 2/2 flare of brochiectasis, possibly pneumonia - Currently, patient reports that her breathing is doing better compared to the point arrival - Physical still reveals adventitious lung sounds at bilateral lung lewis - Blood cultures currently remain negative / sputum cultures remain pending - s/p Leukocytosis - CXR 12/22: Marked but stable appearing chronic changes. - Case was discussed with Pulmonology (Dr. Burns) - c/w Zosyn (Day #2) pending results of sputum cultures - c/w Prednisone; will begin to taper starting tomorrow - c/w Pulmonary toilet - c/w inhaled therapy as ordered, including inhaled Tobramycin - Patient follows with Dr. Leo and Dr. Lazo as an outpatient Diarrhea - likely 2/2 C. diff colitis - Patient continued to experience persistent diarrhea - C. diff 12/24: Positive - Will start Vancomycin PO (Day #1) Hyperglycemia - possibly 2/2 corticosteroid use? - Will check A1c - c/w ISS (AC and HS) CKD3 - Cr 1.0-1.5 - Cr appears to have slight increase compared to yesterday - Will avoid nephrotoxic medications - Will start gentle IV fluid hydration Nicotine dependence - Advised smoking cessation - c/w Nicotine patch GERD - c/w Protonix DVT prophylaxis - c/w Lovenox Disposition: - Awaiting improvement of diarrhea - c/w antibiotics and will adjust based on sputum cultures VS,Fishbone, I+O VS, Fishbone, I+O Laboratory Tests 12/24/18 07:44 Vital Signs Date Time Temp Pulse Resp B/P (MAP) Pulse Ox O2 Delivery O2 Flow Rate FiO2 12/24/18 12:09 97.0 90 20 130/70 (90) 94 Room Air 12/23/18 12:00 1.0 I&O- Last 24 Hours up to 6 AM 12/24/18 06:00 Intake Total 686 ml Output Total 500 ml Balance 186 ml SHEKHAR CARRILLO MD Dec 24, 2018 12:39
[2018-12-24] MEDS ORDERED: HumaLOG INSULIN (NovoLOG) PER UNIT SC SCH (21:00)
[2018-12-25] VITALS (15 sets, daily range): BP systolic 122–154; BP diastolic 64–80; O2SAT 87–95
[2018-12-25] MEDS: VANCOMYCIN ORAL SOL 250MG/5ML ORAL SYRINGE PO SCH ×5 (00:31→23:59)
[2018-12-25] MEDS: PIPERACILLIN/TAZOBACTAM SOD 2.25 GM in D5W MINI-BAG PLUS 50 ML IV SCH ×2 (00:31→06:10)
[2018-12-25] MEDS: LEVALBUTEROL 1.25 MG/0.5 ML CONCENTRATE NEB INH SCH ×4 (01:48→19:14)
[2018-12-25] MEDS: NS 1,000 ML IV SCH ×2 (02:10→18:12)
[2018-12-25 05:28] LABS: HEMATOCRIT 29.3 % (36.0-47.0); MEAN CORPUSCULAR HEMOGLOBIN 29.7 pg (27.0-33.0); MEAN CORPUSCULAR HGB CONC 30.7 g/dl (32.0-36.5); MEAN CORPUSCULAR VOLUME 96.7 fl (80.0-96.0); PLATELET COUNT, AUTOMATED 132 10^3/uL (150-450); RED BLOOD COUNT 3.03 10^6/uL (4.00-5.40); WHITE BLOOD COUNT 7.1 10^3/uL (4.0-10.0)
[2018-12-25 05:55] LABS: CALCIUM LEVEL 8.2 MG/DL (8.8-10.2); CREATININE FOR GFR 1.03 MG/DL (0.55-1.30); MAGNESIUM LEVEL 1.9 MG/DL (1.8-2.4); POTASSIUM SERUM 3.4 MEQ/L (3.5-5.1)
[2018-12-25] MEDS: BENZONATATE 100 MG CAP PO SCH ×3 (06:10→21:02)
--- NOTE | 2018-12-25 06:50 | ECHO ---
DATE OF STUDY: 12/24/2018 REFERRING PHYSICIAN: Dr. Becca Eisenberg INDICATION: Dyspnea. HEIGHT: 170 pounds. WEIGHT: 60 inches. 2-D MEASUREMENTS: Aortic root: 3.1 cm Proximal ascending aorta: 3.3 cm Left atrium: 3.3 cm Ventricular septum: 0.80 cm Posterior wall: 0.84 cm Left ventricle diastole: 4.1 cm Left ventricle systole: 2.0 cm Right ventricle: 3.4 cm Inferior vena cava: 1.6 cm with normal respiratory variation DOPPLER MEASUREMENTS: Aortic valve velocity: 165 cm/sec LVOT velocity: 99.2 cm/sec Trace mitral regurgitation No aortic regurgitation No aortic stenosis Mitral E velocity: 98.5 cm/sec Mitral A velocity: 120 cm/sec Mild tricuspid regurgitation Estimated right ventricular systolic pressure 35-40 mmHg assuming a right atrial pressure of 5-10 mmHg Very mild pulmonic regurgitation Pulmonary acceleration time: 90 ms MITRAL ANNULAR TISSUE DOPPLER: E prime septal: 8.2 cm/sec E prime lateral: 6.4 cm/sec DESCRIPTION: The rhythm was sinus rhythm to sinus tachycardia. Image quality was good. No pericardial effusion. This was a 2-D, M-mode, color flow Doppler and pulse wave Doppler examination and included mitral annular tissue Doppler. CONCLUSIONS: 1. Suggestive of mild elevation of estimated right ventricle systolic pressure (35-40 mmHg). Normal right ventricle size and systolic function. Structurally normal tricuspid leaflets with mild tricuspid regurgitation. Normal right atrial size. Central venous pressure estimated to be 5-10 mmHg. 2. Hyperdynamic LV systolic function. Left ventricle ejection fraction (LVEF) 75% by visual estimate. LV diastolic function probably normal for age and heart rate. No regional wall motion abnormalities of the left ventricle. Normal LV wall thickening. 3. Moderate aortic valve sclerosis of a 3-cuspid aortic valve. No aortic stenosis or regurgitation. 4. Mild mitral annular calcification. Trace mitral regurgitation.
[2018-12-25] MEDS: HumaLOG INSULIN (NovoLOG) PER UNIT SC SCH (07:30)
[2018-12-25] MEDS: TOBRAMYCIN INHAL 300 MG/5 ML SOLN INH SCH ×2 (07:48→19:43)
[2018-12-25] MEDS: ACETYLCYSTEINE 20% 4 ML VIAL (200MG/ML) INH SCH ×2 (07:48→19:14)
[2018-12-25] MEDS: IPRATROPIUM 0.5MG/ALBUTEROL 2.5MG INH SOL UD 3ML (DUONEB)(J7620) NEB SCH ×3 (07:49→19:14)
[2018-12-25] MEDS ORDERED: POTASSIUM CHLORIDE 10 MEQ SR TABLET PO ONE (08:00)
[2018-12-25] MEDS: ENOXAPARIN 40 MG/0.4 ML SYRINGE (J1650) SC SCH (08:46)
[2018-12-25] MEDS: predniSONE 20 MG TAB PO SCH (08:47)
[2018-12-25] MEDS: PANTOPRAZOLE 40MG TAB (PROTONIX) PO SCH (08:47)
[2018-12-25] MEDS: NICOTINE 7 MG/24 HR TRANSDERMAL TD SCH (08:47)
--- NOTE | 2018-12-25 11:22 | IPNPDOC ---
Date Seen The patient was seen on 12/25/18. Progress Note SUBJECTIVE: Patient was seen and examined at the bedside. She states her breathing is better and she is more able to get mucus clearance. She has tried the pulmonary vest and acapella and both have helped minimally. She is now on room air. In regards to her diarrhea, it is slowly improving and she is having less frequent bowel movements this morning. She denies any nausea/vomiting or abdominal pain at this time. OBJECTIVE: PHYSICAL EXAMINATION: VITAL SIGNS: Please see below. GENERAL APPEARANCE: Laying in bed, appears stated age, very thin/frail, no acute distress, calm, cooperative HEENT: EOMI, PERRLA, neck is supple with no thyromegaly or lymphadenopathy RESPIRATORY: Rhoncherous breath sounds in all lewis bilaterally with upper airway rattling still present on exam; frequent coughing on exam but speaking in full sentences CARDIOVASCULAR: no JVD, RRR,no murmurs/rubs/gallops ABDOMEN: Soft, nontender to palpation in all four quadrants, no masses/organomegaly EXTREMITIES: no clubbing, cyanosis or edema noted NEUROLOGICAL: No obvious focal deficits PSYCHIATRIC: normal mood/affect Skin: No rashes or ulcers. LN: No significant cervical or inguinal lymphadenopathy ASSESSMENT AND PLAN: Shortness of breath - likely 2/2 flare of brochiectasis, less likely pneumonia, as procalcitonin 0.21 - Currently, patient reports that her breathing has improved - Physical still reveals adventitious lung sounds at bilateral lung lewis but this may be her baseline given her lung disease - Blood cultures negative - Yeast grew in sputum cultures - s/p Leukocytosis - CXR 12/22: Marked but stable appearing chronic changes. - Case was discussed with Pulmonology (Dr. Burns) - Zosyn d/c'd as less likely bacterial - Prednisone taper initiated. 30mg today - c/w Pulmonary toilet - c/w inhaled therapy as ordered, including inhaled Tobramycin - Patient follows with Dr. Leo and Dr. Lazo as an outpatient - ECHO demonstrated mild elevation of RVSP (35-40 mmHg) and hyperdynamic LV sys tolic function with LVEF 75% Diarrhea - 2/2 C. diff colitis - Diarrhea is improving - Questran ordered - C. diff 12/24: Positive - Will start Vancomycin PO (Day #2) and will send her home on oral Vancomycin Hyperglycemia - 2/2 corticosteroid use - A1c 5.0% - d/c'd SSI and hypoglycemic protocol as such CKD3 - Cr WNL today - Will avoid nephrotoxic medications - Continue gentle IV fluid hydration Nicotine dependence - Advised smoking cessation - c/w Nicotine patch GERD - c/w Protonix DVT prophylaxis - c/w Lovenox Disposition: - Awaiting improvement of dirrhea and more efforts to clear secretions I saw and evaluated the patient. Discussed with resident and medical students and agree with resident's findings and plan as documented in the resident's note. VS, I&O, 24H, Fishbone Vital Signs/I&O Vital Signs Date Time Temp Pulse Resp B/P (MAP) Pulse Ox O2 Delivery O2 Flow Rate FiO2 12/25/18 08:00 93 19 154/72 (99) 92 Room Air 12/25/18 04:00 97.3 12/23/18 12:00 1.0 I&O- Last 24 Hours up to 6 AM 12/25/18 06:00 Intake Total 1140 ml Output Total 1150 ml Balance -10 ml Laboratory Data 24H LABS Laboratory Tests 2 12/24/18 12:08: Bedside Glucose (Misc Panel) 158H 12/24/18 16:39: Bedside Glucose (Misc Panel) 158H 12/24/18 20:44: Bedside Glucose (Misc Panel) 139H 12/25/18 05:03: Nucleated Red Blood Cells % (auto) 0.0, Anion Gap 3L, Glomerular Filtration Rate 55.0, Estimated Mean Plasma Glucose 97, Hemoglobin A1c 5.0, Calcium Level 8.2L, Magnesium Level 1.9 CBC/BMP Laboratory Tests 12/25/18 05:03 Microbiology Microbiology 12/23/18 Gram Stain - Final, Complete 12/23/18 Sputum Culture - Final, Complete Yeast Like Organism 12/23/18 Blood Culture - Preliminary, Resulted No Growth after 48 hours. All Specime... 12/22/18 Blood Culture - Preliminary, Resulted No Growth after 48 hours. All Specime... GME ATTESTATION GME ATTESTATION My faculty preceptor for this patient encounter was physically present during the encounter and was fully available. All aspects of the patient interview, examination, medical decision making process, and medical care plan development were reviewed and approved by the faculty preceptor. The faculty preceptor is aware and concurs with the plan as stated in the body of this note and will attest to such by his/her cosignature. LYNNE ELAINE MD Dec 25, 2018 11:22 KRISSY GODDARD MD Dec 26, 2018 08:07
[2018-12-25] MEDS: CHOLESTYRAMINE 4 GM PWD PKT PO SCH ×2 (12:32→21:02)
[2018-12-26] VITALS (8 sets, daily range): BP systolic 135–140; BP diastolic 64–72; O2SAT 88–97
[2018-12-26] MEDS: LEVALBUTEROL 1.25 MG/0.5 ML CONCENTRATE NEB INH SCH ×3 (00:13→14:00)
[2018-12-26] MEDS: IPRATROPIUM 0.5MG/ALBUTEROL 2.5MG INH SOL UD 3ML (DUONEB)(J7620) NEB SCH ×3 (02:00→14:51)
[2018-12-26 06:04] LABS: HEMATOCRIT 29.5 % (36.0-47.0); MEAN CORPUSCULAR HEMOGLOBIN 29.5 pg (27.0-33.0); MEAN CORPUSCULAR HGB CONC 30.5 g/dl (32.0-36.5); MEAN CORPUSCULAR VOLUME 96.7 fl (80.0-96.0); PLATELET COUNT, AUTOMATED 125 10^3/uL (150-450); RED BLOOD COUNT 3.05 10^6/uL (4.00-5.40); WHITE BLOOD COUNT 6.7 10^3/uL (4.0-10.0)
[2018-12-26] MEDS: VANCOMYCIN ORAL SOL 250MG/5ML ORAL SYRINGE PO SCH ×2 (06:12→12:04)
[2018-12-26] MEDS: BENZONATATE 100 MG CAP PO SCH ×2 (06:12→14:48)
[2018-12-26 06:31] LABS: CALCIUM LEVEL 7.9 MG/DL (8.8-10.2); CREATININE FOR GFR 0.96 MG/DL (0.55-1.30); GLOMERULAR FILTRATION RATE 59.7 (>39); MAGNESIUM LEVEL 1.8 MG/DL (1.8-2.4); POTASSIUM SERUM 3.9 MEQ/L (3.5-5.1)
[2018-12-26] MEDS: ACETYLCYSTEINE 20% 4 ML VIAL (200MG/ML) INH SCH (07:53)
[2018-12-26] MEDS: TOBRAMYCIN INHAL 300 MG/5 ML SOLN INH SCH (07:53)
[2018-12-26] MEDS: NICOTINE 7 MG/24 HR TRANSDERMAL TD SCH (09:00)
[2018-12-26] MEDS ORDERED: predniSONE 10 MG TAB PO SCH (09:00)
[2018-12-26] MEDS: ENOXAPARIN 40 MG/0.4 ML SYRINGE (J1650) SC SCH (09:14)
[2018-12-26] MEDS: PANTOPRAZOLE 40MG TAB (PROTONIX) PO SCH (09:15)
[2018-12-26] MEDS: CHOLESTYRAMINE 4 GM PWD PKT PO SCH (09:15)
[2018-12-26] MEDS ORDERED: FIRV50SO PO (10:00)
[2018-12-26] MEDS ORDERED: PRED10TA2 PO (10:00)
[2018-12-26] MEDS: NS 1,000 ML IV SCH (10:52)
--- NOTE | 2018-12-26 10:55 | DS.PDOC ---
Discharge Summary General Date of Admission Dec 22, 2018 at 19:11 Date of Discharge December 26, 2018 Attending Physician: ELO PARK MD Discharge Summary PROCEDURES PERFORMED DURING STAY: None. ADMITTING DIAGNOSES: 1. SIRS 2. Shortness of breath 3. Congestive heart failure exacerbation 4. CKD 3 5. Nicotine dependence 6. Hyperglycemia secondary to steroid use DISCHARGE DIAGNOSES: 1. Cystic bronchiectasis exacerbation. 2. Clostridium difficile infection COMPLICATIONS/CHIEF COMPLAINT: Bronchiectasis,Hypoxia. HISTORY OF PRESENT ILLNESS: This is a 78-year-old female who was sent to the ED for evaluation by her home RN because her oxygen saturation was abnormal. The patient reports having shortness of breath for about 1 month that makes it difficult for her to get up and walk. The shortness of breath is less severe when she sits down and has improved slightly after receiving oxygen in the ED. Associated symptoms include sensation of her heart racing when she gets up to walk, fevers, chills and chronic cough productive of yellow sputum. She denies having chest pain, and denies having any sick contacts. She was recently admitted for management of a nonbleeding gastric ulcer and discharged on December 15. HOSPITAL COURSE: Patient was admitted with suspected cystic bronchiectasis versus congestive heart failure exacerbation. She was given Solu-Medrol, duonebs and pulmonary toilet. Her sputum cultures were found to grow yeast-like organism, consistent with previous. Initially she required 3 L oxygen via nasal cannula but was titrated down to room air. On hospital day 3, she complained of abdominal pain and diarrhea and was found to have positive Clostridium difficile in her stool. She was treated with oral vancomycin. She was discharged with oral prednisone taper for 7 days as well as oral vancomycin course to be completed in 7 days as well. She is to follow-up with her sizing machine operator, Dr. Leo. DISCHARGE MEDICATIONS: Please see below. ALLERGIES: Please see below. PHYSICAL EXAMINATION ON DISCHARGE: VITAL SIGNS: Please see below. GENERAL APPEARANCE: Laying in bed, appears stated age, very thin/frail, no acute distress, calm, cooperative HEENT: EOMI, PERRLA, neck is supple with no thyromegaly or lymphadenopathy RESPIRATORY: Rhoncherous breath sounds in all lewis bilaterally with upper airway rattling still present on exam; frequent coughing on exam but speaking in full sentences CARDIOVASCULAR: no JVD, RRR,no murmurs/rubs/gallops ABDOMEN: Soft, nontender to palpation in all four quadrants, no masses/organomegaly EXTREMITIES: no clubbing, cyanosis or edema noted NEUROLOGICAL: No obvious focal deficits PSYCHIATRIC: normal mood/affect Skin: No rashes or ulcers. LN: No significant cervical or inguinal lymphadenopathy LABORATORY DATA: Please see below. IMAGING: CXR: Marked chronic abnormal cystic changes and patchy opacities are again seen throughout all of the left hemithorax. This is completely unchanged and has been so at least as far back as 12/12/2016. There are chronic right lung changes, also stable. No definite new abnormal opacities or pleural effusions seem to have developed in this limited portable exam. The technique utilized in obtaining the radiograph has magnified the cardiac silhouette and accentuated the interstitial markings. There is no change in the osseous structures. The heart is completely silhouetted out by the abnormal opacities. IMPRESSION: Marked but stable appearing chronic changes PROGNOSIS: Fair ACTIVITY: As tolerated. DIET: As tolerated DISCHARGE PLAN: Home DISPOSITION: . DISCHARGE INSTRUCTIONS: 1. Please continue prednisone taper for the next 7 days 2. Please continue oral vancomycin course for the next 7 days. 3. Please schedule follow-up appointment with Dr. Leo within the next 7 days ITEMS TO FOLLOWUP ON ON OUTPATIENT: 1. None DISCHARGE CONDITION: Stable. Vital Signs/I&Os Vital Signs Date Time Temp Pulse Resp B/P (MAP) Pulse Ox O2 Delivery O2 Flow Rate FiO2 12/26/18 08:00 98.0 84 20 135/72 (93) 95 Room Air 12/23/18 12:00 1.0 I&O- Last 24 Hours up to 6 AM 12/26/18 06:00 Intake Total 1170 ml Output Total 1125 ml Balance 45 ml Laboratory Data Labs 24H Laboratory Tests 2 12/26/18 05:16: Nucleated Red Blood Cells % (auto) 0.0, Anion Gap 6L, Glomerular Filtration Rate 59.7, Calcium Level 7.9L, Magnesium Level 1.8 CBC/BMP Laboratory Tests 12/26/18 05:16 Microbiology Microbiology 12/23/18 Gram Stain - Final, Complete 12/23/18 Sputum Culture - Final, Complete Yeast Like Organism 12/23/18 Blood Culture - Preliminary, Resulted No Growth after 72 hours. All specime... 12/22/18 Blood Culture - Preliminary, Resulted No Growth after 72 hours. All specime... Discharge Medications Scheduled Ascorbic Acid (Vitamin C) 250 Mg Tab, 250 MG PO DAILY, (Reported) Calcium Carbonate/Vitamin D3 (Oyster Shell 500-Vit D3 200 Tb) 1 Tab Tab, 1 TAB PO DAILY, (Reported) Multivitamins (Thera M Plus Tablet) 1 Tab Tab, 1 TAB PO DAILY, (Reported) Pantoprazole Sodium (Pantoprazole Sodium) 40 Mg Tablet.dr, 40 MG PO BID, (Reported) Prednisone (Prednisone) 10 Mg Tablet, 30 MG PO DAILY 30 MG for 3 days, 20MG for 2 days, then 10mg for 2 days Tobramycin in 0.225% Sod Chlor (Tobramycin 300 mg/5 ml Ampule) 300 Mg/5 Ml Ampul.neb, 300 MG INH BID, (Reported) PRESCRIBED AT DISCHARGE OF LAST HOSPITAL STAY (12/15/18) X28 DAY SUPPLY Vancomycin HCl (Firvanq) 50 Mg/1 Ml Soln.recon, 125 MG PO Q6H Scheduled PRN Albuterol Sulf (Albuterol Sulfate) 2.5 Mg/3 Ml Nebu, 2.5 MG INH TID PRN for SOB/WHEEZING, (Reported) Allergies Coded Allergies: latanoprost (Verified Allergy, Severe, 12/05/18) levofloxacin (Verified Allergy, Severe, 12/05/18) bimatoprost (Verified Allergy, Intermediate, EYE REDNESS, 12/05/18) cephalexin (Verified Allergy, Intermediate, 12/05/18) dorzolamide (Verified Allergy, Intermediate, CONGESTED,COUGH, 12/05/18) timolol (Verified Allergy, Intermediate, CONGESTED,COUGH, 12/05/18) brimonidine (Verified Allergy, Unknown, 12/05/18) doxycycline (Verified Allergy, Unknown, 12/05/18) travoprost (Verified Adverse Reaction, Severe, EYE PAIN HEART RACING, 12/05/18) Sulfa (Sulfonamide Antibiotics) (Verified Adverse Reaction, Intermediate, GI ISSUES, 12/05/18) diclofenac (Verified Adverse Reaction, Intermediate, VOMITS, 12/05/18) moxifloxacin (Verified Adverse Reaction, Mild, DIARRHEA, 12/05/18) GME ATTESTATION GME ATTESTATION I saw and evaluated the patient. I agree with the findings and plan of care as documented in the documenters note. I spent 45 minutes coordinating this patient's discharge. LYNNE ELAINE MD Dec 26, 2018 10:55 ELO PARK MD Dec 27, 2018 12:32
== END 2018-12-26 15:07 | disposition home health service (06) | DRG 191 ==
LOC: M ED 14:16 → M ED INP 19:11 → M PCU 21:31
PROVIDERS: ADMIT Internal Medicine; ATTEND Internal Medicine
DX: J47.1 Bronchiectasis with (acute) exacerbation (principal); A04.72 Enterocolitis due to Clostridium difficile, not specified as recurrent; J18.9 Pneumonia, unspecified organism; N18.3 Chronic kidney disease, stage 3 (moderate); Z98.41 Cataract extraction status, right eye; K21.0 Gastro-esophageal reflux disease with esophagitis; D50.9 Iron deficiency anemia, unspecified; F17.210 Nicotine dependence, cigarettes, uncomplicated; R73.9 Hyperglycemia, unspecified; T38.0X5A Adverse effect of glucocorticoids and synthetic analogues, initial encounter; Z79.51 Long term (current) use of inhaled steroids; Z79.899 Other long term (current) drug therapy; Z87.11 Personal history of peptic ulcer disease; Z88.1 Allergy status to other antibiotic agents; Z86.2 Personal history of diseases of the blood and blood-forming organs and certain disorders involving the immune mechanism; Z88.2 Allergy status to sulfonamides; Z88.6 Allergy status to analgesic agent; Z88.8 Allergy status to other drugs, medicaments and biological substances; I50.9 Heart failure, unspecified; Z98.42 Cataract extraction status, left eye

== ENCOUNTER 2019-01-05 09:11 | Emergency (ER) | payer MEDICARE ==
[~2019-01-05] VITALS: Ht 152.4 cm; Wt 52.7 kg
[~2019-01-05 09:11] MED LIST changes: +FIRV50SO PO; +PANT-23 PO; +PRED10TA2 PO
[2019-01-05] MEDS ORDERED: dexameTHASONE 20 MG/5 ML VIAL (J1100) IV ONE (10:00)
[2019-01-05 10:18] LABS: BASO % 0.3 % (0.0-1.0); EOS % 10.5 % (0.0-3.0); HEMATOCRIT 34.6 % (36.0-47.0); HEMOGLOBIN 10.4 g/dl (12.0-15.5); LYMPH # 1.2 10^3/uL (1.5-5.0); LYMPH % 12.7 % (24.0-44.0); MEAN CORPUSCULAR HEMOGLOBIN 28.5 pg (27.0-33.0); MEAN CORPUSCULAR HGB CONC 30.1 g/dl (32.0-36.5); MEAN CORPUSCULAR VOLUME 94.8 fl (80.0-96.0); MONO # 0.9 10^3/uL (0.0-0.8); MONO % 9.6 % (0.0-5.0); NEUTROPHILS # 6.4 10^3/uL (1.5-8.5); NEUTROPHILS % 66.5 % (36.0-66.0); PLATELET COUNT, AUTOMATED 146 10^3/uL (150-450); RED BLOOD COUNT 3.65 10^6/uL (4.00-5.40); WHITE BLOOD COUNT 9.7 10^3/uL (4.0-10.0)
[2019-01-05] MEDS: IPRATROPIUM 0.5MG/ALBUTEROL 2.5MG INH SOL UD 3ML (DUONEB)(J7620) NEB PRN ×2 (10:20→10:30)
[2019-01-05 10:23] LABS: ABG BASE EXCESS 5.6 (-2.0-2.0); ABG HCO3 30.7 MEQ/L (22.0-26.0); ABG O2 SATURATION 93.9 % (95.0-99.0); ABG PARTIAL PRESSURE CO2 47.5 mmHg (35.0-45.0); ABG PARTIAL PRESSURE O2 69.6 mmHg (75.0-100.0); ABG STANDARD HCO3 29.5 MEQ/L (22.0-26.0); ABG TOTAL CO2 32.2 MEQ/L (23.0-31.0); ABG pH (ARTERIAL) 7.429 UNITS (7.350-7.450)
[2019-01-05 10:51] LABS: BLOOD UREA NITROGEN 11 MG/DL (7-18); CALCIUM LEVEL 9.1 MG/DL (8.8-10.2); CARBON DIOXIDE LEVEL 34 MEQ/L (21-32); CHLORIDE LEVEL 100 MEQ/L (98-107); CK-MB VALUE MASS 3.8 NG/ML (<3.6); CPK CREATINE PHOSPHOKINASE 95 U/L (26-192); CREATININE FOR GFR 1.09 MG/DL (0.55-1.30); GLOMERULAR FILTRATION RATE 51.5 (>39); GLUCOSE, FASTING 113 MG/DL (70-100); NT-PRO BNP 438 PG/ML (<450); POTASSIUM SERUM 4.1 MEQ/L (3.5-5.1); SODIUM LEVEL 137 MEQ/L (136-145); TROPONIN I < 0.02 NG/ML (< 0.10)
--- NOTE | 2019-01-05 11:41 | REP ---
CHEST X-RAY: Two views. HISTORY: Dyspnea. COMPARISON STUDY: December 22, 2018. FINDINGS: There is volume loss and extensive cystic bronchiectasis and fibronodular opacification in the left hemithorax unchanged from comparison studies December 22 and December 07, 2018. There is some shift of the mediastinum to the left. Interstitial markings are prominent in the periphery of the right lung. No focal infiltrate is seen. No pleural effusion is seen. IMPRESSION: Chronic volume loss diffuse increased opacity and extensive bronchiectasis left lung. This is unchanged. Mediastinal shift to the left. Prominent interstitial markings in the right lung unchanged from most recent prior study as well. Electronically Signed by Milan Sullivan MD 01/05/2019 01:53 P
[2019-01-05 12:47] VITALS: O2SAT 82
[2019-01-05] MEDS ORDERED: Home Oxygen XX (13:41)
--- NOTE | 2019-01-05 13:43 | ECGEPIP ---
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
[2019-01-05 16:15] VITALS: BP 127/62
== END 2019-01-05 16:37 | disposition home or self-care (01) ==
LOC: M ED 09:11
DX: J96.11 Chronic respiratory failure with hypoxia (principal); J47.9 Bronchiectasis, uncomplicated; R00.0 Tachycardia, unspecified; N18.3 Chronic kidney disease, stage 3 (moderate); Z79.899 Other long term (current) drug therapy; Z79.52 Long term (current) use of systemic steroids; Z79.2 Long term (current) use of antibiotics; Z88.2 Allergy status to sulfonamides; Z88.1 Allergy status to other antibiotic agents; Z88.8 Allergy status to other drugs, medicaments and biological substances
CPT/HCPCS: 36415; 36600; 71046; 80048; 82550; 82553; 82803; 83605; 83880; 84484; 85025; 87040; 87486; 87581; 87633; 87798; 93005; 93041; 94640; 96374; 99285; J1100

== ENCOUNTER → 2019-01-17 | Outpatient (REF) | payer MEDICARE ==
[~2019-01-17] MED LIST changes: +Home Oxygen XX
== END ==
LOC: M LAB REF 13:13
PROVIDERS: ATTEND Internal Medicine Pulmonary Disease
DX: J47.9 Bronchiectasis, uncomplicated (principal)

== ENCOUNTER → 2019-01-24 | Outpatient (CLI) | payer MEDICARE ==
--- NOTE | 2019-02-01 10:12 | DEXA ---
AP SPINE L1 - L4 0.910 -2.3 -0.5 LT FEMUR TOTAL 0.969 -0.3 1.6 LT NECK 0.932 -0.8 1.3 RT FEMUR TOTAL 0.959 -0.4 1.6 RT NECK 0.971 -0.5 1.6 TOTAL BODY TOTAL OTHER COMMENTS: Normal bone densitometry of the hips. There is low bone density of the spine. The density of the spine has decreased 6.2% since the initial exam on 05/24/2001. The spine density has decreased 2.2% since the most recent exam on 01/14/2015. The density of the left hip has decreased 11.7% since the initial exam on 05/24/2001. The density of the left hip has decreased 0.5% since the most recent exam on 01/14/2015. The density of the right hip has decreased 9.2% since the initial exam on 05/24/2001. The density of the right hip has increased 0.2% since the most recent exam on 01/14/2015. FOLLOW-UP: Recommendation for the next bone density exam: 2 years. [id number]
== END ==
LOC: M WHC 07:53
PROVIDERS: ATTEND Family Medicine
DX: M81.0 Age-related osteoporosis without current pathological fracture (principal)

== ENCOUNTER 2019-03-02 02:56 | Inpatient (IN) | payer MEDICARE ==
[~2019-03-02] VITALS: Ht 149.9 cm; Wt 50.0 kg
[2019-03-02] VITALS (22 sets, daily range): BP systolic 89–114; BP diastolic 43–64
[2019-03-02] MEDS ORDERED: PANTOPRAZOLE 40MG INJ (PROTONIX) (C9113) IV ONE (03:15)
[2019-03-02] MEDS ORDERED: NS 1,000 ML IV ONE (03:15)
[2019-03-02 03:19] LABS: BASO % 0.1 % (0.0-1.0); LYMPH # 2.8 10^3/uL (1.5-5.0); LYMPH % 16.4 % (24.0-44.0); MEAN CORPUSCULAR HEMOGLOBIN 28.1 pg (27.0-33.0); MEAN CORPUSCULAR HGB CONC 28.8 g/dl (32.0-36.5); MEAN CORPUSCULAR VOLUME 97.5 fl (80.0-96.0); MONO # 0.7 10^3/uL (0.0-0.8); MONO % 4.2 % (0.0-5.0); NEUTROPHILS # 13.4 10^3/uL (1.5-8.5); NEUTROPHILS % 77.8 % (36.0-66.0); PLATELET COUNT, AUTOMATED 179 10^3/uL (150-450); RED BLOOD COUNT 2.03 10^6/uL (4.00-5.40); WHITE BLOOD COUNT 17.2 10^3/uL (4.0-10.0)
[2019-03-02 03:20] LABS: HEMATOCRIT 19.8 % (36.0-47.0); HEMOGLOBIN 5.7 g/dl (12.0-15.5)
[2019-03-02 03:35] LABS: INR 1.52
[2019-03-02 03:36] LABS: PARTIAL THROMBOPLASTIN TIME 29.8 SECONDS (25.0-38.4)
[2019-03-02 03:45] LABS: ALBUMIN 2.1 GM/DL (3.2-5.2); ALT/SGPT 21 U/L (12-78); BILIRUBIN,DIRECT 0.1 MG/DL (0.0-0.2); BILIRUBIN,TOTAL 0.3 MG/DL (0.2-1.0); BLOOD UREA NITROGEN 76 MG/DL (7-18); CALCIUM LEVEL 9.1 MG/DL (8.8-10.2); CARBON DIOXIDE LEVEL 22 MEQ/L (21-32); CHLORIDE LEVEL 105 MEQ/L (98-107); CREATININE FOR GFR 1.83 MG/DL (0.55-1.30); GLOMERULAR FILTRATION RATE 28.3 (>39); GLUCOSE, FASTING 191 MG/DL (70-100); LIPASE 45 U/L (73-393); POTASSIUM SERUM 4.3 MEQ/L (3.5-5.1); SODIUM LEVEL 146 MEQ/L (136-145); TOTAL PROTEIN 5.5 GM/DL (6.4-8.2)
[2019-03-02] MEDS ORDERED: PILO1OPD OS (05:33)
--- NOTE | 2019-03-02 05:57 | HPEPDOC ---
[facility] Medical History & Physical Date of Admission Mar 02, 2019 Date of Service: Mar 02, 2019 Primary Care Physician: MOHINI SHELTON MD Attending Physician: AYSHA KWON MD History and Physical TIME OF SERVICE: 6:05 AM CHIEF COMPLAINT: Vomiting blood,/Abdominal pain HISTORY OF PRESENT ILLNESS: This is a 78-year-old female was brought to the hospital by EMS for evaluation because she has been vomiting bright red blood, episodes of dark diarrhea along with 4/10 in severity, nonradiating abdominal pain for about 2 days. Her family members deny noticing that she looks more pale than usual. Per discussion with Dr. Wong, her hemoglobin is 5.7 and 2 units of PRBCs have been ordered. Dr. Pires was consulted; he will take the patient to the OR later on today requested that we admit the patient. REVIEW OF SYSTEMS: 12 point review of systems negative except as listed in HPI PAST MEDICAL/ SURGICAL HISTORY: Bronchiectasis with Pseudomonas colonization. History of iron deficiency anemia History of non-bleeding gastric ulcer/hemorrhagic gastropathy requiring clip placement / History of adenomatous polyps of the colon. Severe GERD/erosive esophagitis History of C. difficile colitis CKD 3 History of Chronic Thrombocytopenia. Status post bilateral cataract surgery SOCIAL HISTORY: Smoker FAMILY HISTORY: Mother had emphysema ALLERGIES: Please see below. HOME MEDICATIONS: Please see below. PHYSICAL EXAMINATION: VITAL SIGNS: Please see below. GENERAL APPEARANCE: Slim built, well-developed, not in apparent distress HEENT: Normocephalic, atraumatic, mucous members slightly dry. She does not have scleral icterus or pale conjunctiva CARDIOVASCULAR: Tachycardic. No murmurs, rubs or gallops. Her upper extremities are slightly cool to touch. She does not have lower extremity edema LUNGS: Clear to auscultation bilaterally on room air ABDOMEN: The abdomen is tender with light palpation MUSCULOSKELETAL: Range of motion is intact in all 4 extremities is no lower extremity edema NEUROLOGICAL:. Cranial nerves II-12 are grossly intact. Speech is not dysarthric PSYCHIATRIC: Alert and oriented, able to understand and follow commands LABORATORY DATA: See below. IMAGING: CT of the chest, abdomen and pelvis have been done but the reports are pending MICROBIOLOGY: Please see below. ASSESSMENT: Ms Miller is a 78-year-old female with a past medical history of bronchiectasis, iron deficiency anemia, GI bleed, and CKD 3 who is admitted for management of a cute anemia 2/2 UGIB. PLAN: 1. Acute Anemia 2/2 UGIB She has a history of iron deficiency anemia, erosive gastritis / gastric ulcer/hemorrhagic gastropathy requiring clip placement & adenomatous polyps of the colon Avelina-Blatchford Score to identify low risk UGIB = 15 = high risk Rockall Score (pre-endoscopy) to determine severity of GIB = 6 points = 48.9% mortality prior to endoscopy Plan: Admit to ICU/IV PPI / Octreotide drip / intravenous zosyn (bc of fluoroquinolone allergy) / f/u serial Hg Q6H after transfusion/ avoid NSAIDs / Dr. Pires is on board for endoscopy / f/u iron panel w ferritin / hold non- essential meds while NPO 2. SIRS vs Sepsis ? Possibly due to GI source SIRS criteria include HR >90 / / WBC >12 NEW2S Score = 5 points = medium risk Plan: intiae Sepsis protocol w lactic / abx / IVF /f/u blood cx, UA w Cx / target MAP 65 to 70 mmHG / f/u Is and Os with target UOP of atleast 0.5 ml/kg/H / target serum glucose 140-180 while acutely ill 3. Hypernatremia 2/2 Dehydration Plan: Follow-up BMP after IV fluids 4. DARLINE on CKD 3 Likely prerenal due to dehydration Baseline creatine 0.9 --> Today's 1.83 Plan: Is/Os, daily weights / IVF / f/u UA & ulytes for FENa or FEUrea / renal US 5. Bronchiectasis Plan: c/w home meds DVT PROPHYLAXIS: SCDs because of acute GI bleed DISPOSITION: Likely home after more than 2 midnight's stay Vital Signs Vital Signs Date Time Temp Pulse Resp B/P (MAP) Pulse Ox O2 Delivery O2 Flow Rate FiO2 03/02/19 05:49 97.1 124 18 114/64 94 Room Air Laboratory Data Labs 24H Laboratory Tests 2 03/02/19 03:12: Immature Granulocyte % (Auto) 1.5, Neutrophils (%) (Auto) 77.8H, Lymphocytes (%) (Auto) 16.4L, Monocytes (%) (Auto) 4.2, Eosinophils (%) (Auto) 0.0, Basophils (%) (Auto) 0.1, Neutrophils # (Auto) 13.4H, Lymphocytes # (Auto) 2.8, Monocytes # (Auto) 0.7, Eosinophils # (Auto) 0.0, Basophils # (Auto) 0.0, Nucleated Red Blood Cells % (auto) 0.0, Prothrombin Time 18.0H, Prothromb Time International Ratio 1.52, Activated Partial Thromboplast Time 29.8, Anion Gap 19H, Glomerular Filtration Rate 28.3L, Calcium Level 9.1, Total Bilirubin 0.3, Direct Bilirubin 0.1, Aspartate Amino Transf (AST/SGOT) 30, Alanine Aminotransferase (ALT/SGPT) 21, Alkaline Phosphatase 59, Total Protein 5.5L, Albumin 2.1L, Albumin/Globulin Ratio 0.62L, Lipase 45L 03/02/19 03:19: POC Glucose (Misc Panel) 191H, POC Sodium (Misc Panel) 141, POC Potassium (Misc Panel) 4.1, POC Chloride (Misc Panel) 101, POC Total CO2 (Misc Panel) 23.0, POC Blood Urea Nitrogen (Misc Panel 73H, POC Ionized Calcium (Misc Panel) 5.0, POC Creatinine (Misc Panel) 1.7H, POC Hematocrit (Misc Panel) 16.0L CBC/BMP Laboratory Tests 03/02/19 03:12 Home Medications Scheduled Ascorbic Acid (Vitamin C) 250 Mg Tab, 250 MG PO DAILY Calcium Carbonate/Vitamin D3 (Oyster Shell 500-Vit D3 200 Tb) 1 Tab Tab, 1 TAB PO DAILY Multivitamins (Thera M Plus Tablet) 1 Tab Tab, 1 TAB PO DAILY Pantoprazole Sodium (Pantoprazole Sodium) 40 Mg Tablet.dr, 40 MG PO BID Pilocarpine HCl (Pilocarpine HCl) 1% 15ML Drops, 1 DROP OS QID Scheduled PRN Albuterol Sulf (Albuterol Sulfate) 2.5 Mg/3 Ml Nebu, 2.5 MG INH QID PRN for SHORTNESS OF BREATH Allergies Coded Allergies: latanoprost (Verified Allergy, Severe, 12/05/18) levofloxacin (Verified Allergy, Severe, 12/05/18) bimatoprost (Verified Allergy, Intermediate, EYE REDNESS, 12/05/18) cephalexin (Verified Allergy, Intermediate, 12/05/18) dorzolamide (Verified Allergy, Intermediate, CONGESTED,COUGH, 12/05/18) timolol (Verified Allergy, Intermediate, CONGESTED,COUGH, 12/05/18) brimonidine (Verified Allergy, Unknown, 12/05/18) doxycycline (Verified Allergy, Unknown, 12/05/18) travoprost (Verified Adverse Reaction, Severe, EYE PAIN HEART RACING, ) Sulfa (Sulfonamide Antibiotics) (Verified Adverse Reaction, Intermediate, GI ISSUES, 12/05/18) diclofenac (Verified Adverse Reaction, Intermediate, VOMITS, 12/05/18) moxifloxacin (Verified Adverse Reaction, Mild, DIARRHEA, 12/05/18) A-FIB/CHADSVASC A-FIB History Current/History of A-Fib/PAF?: No Current PO Anticoag Therapy: No AYSHA KWON MD Mar 02, 2019 05:57
[2019-03-02] MEDS ORDERED: LR 1,000 ML IV SCH ×2 (06:35→09:00)
[2019-03-02] MEDS ORDERED: SODIUM CHLORIDE 0.9% 1000ML IV STA (06:35)
[2019-03-02] MEDS ORDERED: OCTREOTIDE ACETATE 100 MCG/ML VIAL (J2354) IV ONE (06:45)
--- NOTE | 2019-03-02 06:47 | CR ---
DATE OF CONSULTATION: 03/02/2019 REASON FOR CONSULTATION: Upper GI bleed manifest as melena and hematemesis. HISTORY OF THE PRESENT ILLNESS: The patient is a 78-year-old woman with a past history of peptic ulcer disease who was brought to the emergency department by ambulance with a history of multiple episodes of melena and then vomiting of red blood with hypotension. Her initial blood work showed a hemoglobin of 6. She received 2 units of O negative blood and had some normal saline via the rapid infusion system. Her blood pressure improved rapidly and she has been awake and alert since. The patient has a history of previous peptic ulcer documented both at the end of 2017 and then again in November of this year when she had presented with evidence of GI bleed. She was at that time instructed to take Protonix 40 mg twice daily and follow up with Dr. Sánchez for repeat endoscopy in 3 months. The patient's other medical history is most significant for severe lung disease with bronchiectasis. She has seen Dr. Leo for this. As there is not a airborne and air delivery specialist on duty at this time, I was consulted to consider upper endoscopy. MEDICATIONS: Reported as albuterol nebulizers four times daily, vitamin C 250 mg daily, calcium and vitamin D 1 tablet daily, a multivitamin daily, Protonix 40 mg twice daily, and pilocarpine eye drops in the left eye four times daily. ALLERGIES: Are multiple and listed in the record. Those recorded in the [employer] system include SULFA, LEVOFLOXACIN, CEPHALEXIN, DOXYCYCLINE, MOXIFLOXACIN, LATANOPROST, BIMATOPROST, DORZOLOMIDE, TIMOLOL, BROMONIDINE, TRAVAPROST, and DIFLOFENAC. PAST SURGICAL HISTORY: Significant for adenomatous polyps which had been resected colonoscopically on two occasions in 2011 and 2014. She has had bilateral cataract extractions. She has had several upper endoscopic exams, most recently on December 07 of this year which identified an ulcer in the antrum of the stomach as well as significant esophagitis. MEDICAL HISTORY: Significant for her chronic lung disease with cystic bronchiectasis. She has in the past had heavy Pseudomonas colonization. She has a history of chronic kidney disease stage 3. She has had GI bleeding noted previously. FAMILY HISTORY: Noncontributory. SOCIAL HISTORY: She is a nonsmoker, other than some secondhand smoke. She denies any alcohol use. REVIEW OF SYSTEMS: The patient denies any cardiac problems. She reports that her lung disease has been basically at baseline. She has recently been started on some oxygen by her stuntman, Dr. Leo. She denies any abdominal pain. She denies any urinary symptoms. She has no bone or joint issues at this time. PHYSICAL EXAMINATION: Reveals a thin elderly woman lying quietly on the ER stretcher. Her pulse is approximately 130. Blood pressure is acceptable. She has a Lyles catheter in place with a small amount of light yellow urine in the bag. She is alert and responsive. She has some dried blood on her teeth and lower lip. She is perhaps slightly pale. The skin is warm and dry. Neck is supple. Heart exam shows a tachycardia of approximately 130. Her heart is somewhat displaced to the left. She has diminished breath sounds on the left with fairly clear breath sounds on the right. The abdomen is flat. She does have some bowel sounds present. There is no tympany to percussion. There is no tenderness to percussion. The abdomen is soft and without significant tenderness throughout. Lower extremities are without edema. I do not feel pedal pulses on either side. She does have palpable radial pulses bilaterally. LABORATORY STUDIES: Today show a white count of 17,000, hemoglobin 5.7, hematocrit 20, and a platelet count of 179,000. Differential count shows 78% neutrophils and 16% lymphocytes. Chemistry profile shows a sodium of 146, potassium 4.3, chloride 105, CO2 of 22, BUN of 76, creatinine 1.8 and a glucose of 191. Liver function tests are normal. Total protein is 5.5 with an albumin of 2.1. Most recent previous blood count was on January 05, at which time, she had a hemoglobin of 10.4 with a hematocrit of 34.6. She has had a CT scan of the chest as well as a CT scan of the abdomen and pelvis in the emergency department. Her chest CT shows severe chronic changes on primarily the left lung. She has some lesser changes within the lung on the right. There is significant volume loss with cystic changes on the left and the heart was shifted into the left chest significantly. She had a CT scan of the abdomen and pelvis as well. The CT of the abdomen and pelvis shows significant diverticulosis of at least the left colon. She has a stone in the gallbladder as well as what appear to be some stones in the left kidney and a smaller one in the right kidney. There may be some inflammatory changes in the distal stomach and duodenum. IMPRESSION: 1. Upper gastrointestinal bleed manifest as significant melena and then hematemesis of red blood. 2. Severe chronic lung disease with bronchiectasis. 3. Chronic kidney disease stage 3 with acute kidney injury superimposed. RECOMMENDATIONS: At this point, the patient remains quite tachycardiac and I have recommended additional blood transfusion. I believe upper endoscopy would be appropriate here in the near future if we can get some additional blood transfused. If there is ongoing bleeding, which I do not think is the case, then it might be necessary to proceed to open exploration and oversewing of a bleeding source. She will certainly require admission and given her significant underlying medical issues I think involvement by the hospitalist would be appropriate. CLAUDIA
[2019-03-02] MEDS ORDERED: ALBUTEROL SULFATE 2.5 MG/0.5 ML INH NEB SOLN INH PRN (07:00)
--- NOTE | 2019-03-02 07:07 | REPVR ---
PROCEDURE INFORMATION: Exam: CT Chest Without Contrast Exam date and time: 03/02/2019 3:03 AM Age: 78 years old Clinical indication: Chest pain; Type not specified; Additional Info: ABD PAIN, GI BLEED TECHNIQUE: Imaging protocol: Computed tomography of the chest without contrast. Radiation optimization: All CT scans at this facility use at least one of these dose optimization techniques: automated exposure control; mA and/or kV adjustment per patient size (includes targeted exams where dose is matched to clinical indication); or iterative reconstruction. COMPARISON: CT Chest with contrast 12/12/2016 4:48 PM FINDINGS: Tracheobronchial tree: Varicoid bronchiectasis in the anterior basal right lower lobe. Extensive bronchiectasis and cystic changes in the left lung. Lungs: Scattered peripheral consolidations in the right lung. Cystic changes in the central right lower lobe. There is volume loss on the left. Pleural space: No pneumothorax. No pleural effusion. Heart: Heart is shifted to the left. Heart size is within normal limits. Coronary arteries: Moderate coronary artery calcification. Aorta: No aortic aneurysm. Mild calcified atherosclerotic disease. Lymph nodes: Unremarkable. No enlarged lymph nodes. Stomach and bowel: Moderate sliding type gastric hiatal hernia. Bones/joints: Moderate degenerative spine. No acute fracture. Soft tissues: Unremarkable. IMPRESSION: 1. Scattered peripheral consolidations in the right lung. Mildly increased from prior. Fibrosis versus pneumonia. 2. Varicoid bronchiectasis in the anterior basal right lower lobe. Unchanged from prior. 3. Extensive cystic changes in the left lung. Increased from prior. 4. Moderate sliding type gastric hiatal hernia. 5. Additional findings as described. Electronically signed by: Steffany Mora On 03/02/2019 07:07:29 AM
--- NOTE | 2019-03-02 07:11 | REPVR ---
PROCEDURE INFORMATION: Exam: CT Abdomen And Pelvis Without Contrast Exam date and time: 03/02/2019 3:03 AM Age: 78 years old Clinical indication: Abdominal pain; Generalized; Additional Info: ABD PAIN, GI BLEED TECHNIQUE: Imaging protocol: Computed tomography of the abdomen and pelvis without contrast. Radiation optimization: All CT scans at this facility use at least one of these dose optimization techniques: automated exposure control; mA and/or kV adjustment per patient size (includes targeted exams where dose is matched to clinical indication); or iterative reconstruction. COMPARISON: CT ABD/PEL W/IV CONTRAST ONLY 12/06/2018 10:28 PM FINDINGS: Lungs: See CT chest report. Liver: Normal. No mass. Gallbladder and bile ducts: Gallstone in the gallbladder. No gallbladder wall thickening. Pancreas: Mild peripancreatic haziness. Spleen: Normal. No splenomegaly. Adrenals: Normal. No mass. Kidneys and ureters: No hydronephrosis. Multiple nonobstructive stones in the kidneys bilaterally measuring up to 6 mm. Stomach and bowel: Surgical clip in the stomach. Moderate sliding type gastric hiatal hernia. Diffuse thickening of the jejunum. Diffuse thickening of the distal ileum. Diffuse thickening of the colon. Colonic diverticulosis without diverticulitis. No abnormal bowel dilatation. Appendix: Appendix is normal. Intraperitoneal space: No free air. No significant fluid collection. Diffuse haziness of the intraperitoneal fat. Vasculature: Moderate calcified atherosclerotic disease. No aortic aneurysm. Lymph nodes: Unremarkable. No enlarged lymph nodes. Bladder: Bladder is decompressed. There is a Lyles catheter in the bladder. Reproductive: Uterus is normal. Bones/joints: Moderate degenerative spine. No acute fracture. Soft tissues: Unremarkable. IMPRESSION: 1. Mild peripancreatic haziness. Pancreatitis versus duodenitis. 2. Diffuse thickening of the bowel as described. Infectious versus inflammatory versus ischemic enterocolitis versus shock bowel. Correlate clinically. 3. Moderate sliding type gastric hiatal hernia. 4. Cholelithiasis without acute cholecystitis. 5. Additional findings as described. Electronically signed by: Steffany Mora On 03/02/2019 07:11:34 AM
[2019-03-02] MEDS ORDERED: fentaNYL 250 MCG/5 ML INJECTION (J3010) As Ordered ONE (07:18)
[2019-03-02] MEDS ORDERED: MIDAZOLAM INJ 2 MG/2 ML VIAL (J2250) As Ordered ONE (07:18)
[2019-03-02] MEDS ORDERED: PROPOFOL 200 MG/20 ML VIAL As Ordered ONE (07:18)
[2019-03-02] MEDS ORDERED: LIDOCAINE 2% INJ 100 MG/5 ML SDV (FOR ANES.) As Ordered ONE (07:18)
[2019-03-02] MEDS ORDERED: ROCURONIUM BROMIDE 50 MG/5 ML VIAL As Ordered ONE (07:18)
[2019-03-02 07:22] LABS: FERRITIN 27 NG/ML (8-252); IRON (FE) 42 UG/DL (50-170); TOTAL IRON BINDING CAPACITY 233 UG/DL (250-450)
[2019-03-02] MEDS ORDERED: SUGAMMADEX SODIUM 500 MG/5 ML VIAL (BRIDION) As Ordered ONE (07:57)
[2019-03-02] MEDS ORDERED: ONDANSETRON 4MG/2ML VIAL (J2405) As Ordered ONE (07:57)
[2019-03-02] MEDS ORDERED: METOCLOPRAMIDE INJ 10MG/2ML VIAL (J2765) As Ordered ONE (07:58)
[2019-03-02] MEDS ORDERED: OCTREOTIDE ACETATE 1,200 MCG in NS 238.8 ML IV SCH (08:00)
[2019-03-02] MEDS ORDERED: fentaNYL 100 MCG/2 ML INJECTION (J3010) IV PRN (09:00)
[2019-03-02 09:17] LABS: VITAMIN B12 LEVEL 452 PG/ML (247-911)
[2019-03-02 09:18] LABS: FOLATE > 24.0 NG/ML (>5.4)
[2019-03-02] MEDS: PANTOPRAZOLE SODIUM 40 MG in D5W 50 ML IV SCH ×4 (10:00→22:58)
[2019-03-02] MEDS ORDERED: CALCIUM GLUCONATE 1,000 MG in D5W MINI-BAG PLUS 100 ML IV ONE (11:30)
[2019-03-02] MEDS: PIPERACILLIN/TAZOBACTAM SOD 2.25 GM in D5W MINI-BAG PLUS 50 ML IV SCH ×2 (11:39→16:21)
--- NOTE | 2019-03-02 13:56 | REP ---
Clinical: Acute renal insufficiency Technique: Real time perrin scale ultrasound examination using curved array transducer. Findings: The kidneys are normal in reniform shape and demonstrate mildly increased echotexture along with increased central sinus fat and renovascular calcifications consistent with chronic renal disease. There is no evidence for hydronephrosis. Right kidney measures 9.0 x 5.0 x 5.4 cm with 1.2 cm mid pole cyst versus dilated calyx. Left kidney measures 9.3 x 4.9 x 4.7 cm. Lyles catheter in collapsed bladder. Impression: Evidence for chronic medical renal disease. No hydronephrosis. Electronically Signed by Marcelo Chapin MD 03/02/2019 01:48 P
[2019-03-02 15:52] LABS: HEMATOCRIT 35.2 % (36.0-47.0); HEMOGLOBIN 11.2 g/dl (12.0-15.5); MEAN CORPUSCULAR HEMOGLOBIN 29.2 pg (27.0-33.0); MEAN CORPUSCULAR HGB CONC 31.8 g/dl (32.0-36.5); MEAN CORPUSCULAR VOLUME 91.9 fl (80.0-96.0); RED BLOOD COUNT 3.83 10^6/uL (4.00-5.40); WHITE BLOOD COUNT 14.9 10^3/uL (4.0-10.0)
[2019-03-02] MEDS ORDERED: NS 500 ML IV ONE (16:00)
[2019-03-02 16:21] LABS: PLATELET COUNT, AUTOMATED 77 10^3/uL (150-450)
--- NOTE | 2019-03-02 17:01 | ROOR ---
Patient Name: Ramon Miller Procedure Date: 03/02/2019 6:21 AM Date of : 1940 Age: 78 Room: Main OR Gender: Female Note Status: Finalized Procedure: Upper GI endoscopy Indications: Hematemesis, Melena Providers: Brian Pires MD Referring MD: 1. No Referring Physician 1. No Referring Physician, Admin. Requesting Provider: Medicines: General Anesthesia Complications: No immediate complications. Procedure: Pre-Anesthesia Assessment: - Prior to the procedure, a History and Physical was performed, and patient medications and allergies were reviewed. The patient is competent. The risks and benefits of the procedure and the sedation options and risks were discussed with the patient. All questions were answered and informed consent was obtained. Patient identification and proposed procedure were verified by the physician, the nurse, the toddler guide and the gas plant technician in the procedure room. Mental Status Examination: alert and oriented. CV Examination: regular rate and rhythm and tachycardia noted. ASA Grade Assessment: IV - A patient with severe systemic disease that is a constant threat to life. After reviewing the risks and benefits, the patient was deemed in satisfactory condition to undergo the procedure. The anesthesia plan was to use general anesthesia. Immediately prior to administration of medications, the patient was re-assessed for adequacy to receive sedatives. The heart rate, respiratory rate, oxygen saturations, blood pressure, adequacy of pulmonary ventilation, and response to care were monitored throughout the procedure. The physical status of the patient was re-assessed after the procedure. The Endoscope was introduced through the mouth, and advanced to the second part of duodenum. The upper GI endoscopy was accomplished with ease. The patient tolerated the procedure well. Findings: LA Grade D (one or more mucosal breaks involving at least 75% of esophageal circumference) esophagitis with no bleeding was found 23 to 33 cm from the incisors. Hematin (altered blood/ckailw-harklv-pukj material) was found in the gastric fundus. Three localized erosions without bleeding were found in the first portion of the duodenum. Evidence of an endoscopic clips were found in the gastric body (lesser curvature). This was characterized by edema. Impression: - LA Grade D erosive esophagitis. - Hematin (altered blood/rhqoit-svxkjy-jezd material) in the gastric fundus. - Duodenal erosions without bleeding. - No specimens collected. Recommendation: - Admit the patient to ICU for ongoing care. Attending Participation: I personally performed the entire procedure. Brian Pires MD Brian Pires MD 03/02/2019 5:01:51 PM Electronically signed by Brian Pires MD Number of Addenda: 0 Note Initiated On: 03/02/2019 6:21 AM Estimated Blood Loss: Estimated blood loss: none.
--- NOTE | 2019-03-02 17:06 | IPNPDOC ---
Text Note Date of Service The patient was seen on 03/02/19. NOTE SUBJECTIVE: patient seen after she came back from EGD. Still under the effect of sedation. sleeping comfortable. Easily arousable when caller her name. complained of soreness of her abdomen, denied any nausea or vomiting. As per nurse she had about 150 ml of jamie after coming from the EgD. Also her output has been only 30cc/hour. PHYSICAL EXAMINATION: VITAL SIGNS: Please see below. GENERAL APPEARANCE: Slim built, well-developed, not in apparent distress HEENT: Normocephalic, atraumatic, mucous members slightly dry. She does not have scleral icterus or pale conjunctiva CARDIOVASCULAR: Tachycardic. No murmurs, rubs or gallops. Her upper extremities are slightly cool to touch. She does not have lower extremity edema LUNGS: coarse breath sounds with crackles bilaterally but more on the left ABDOMEN: The abdomen is tender with light palpation MUSCULOSKELETAL: Range of motion is intact in all 4 extremities is no lower extremity edema NEUROLOGICAL:. Cranial nerves II-12 are grossly intact. Speech is not dysarthric PSYCHIATRIC: Alert and oriented, able to understand and follow commands LABORATORY DATA: See below. EGD: LA Grade D (one or more mucosal breaks involving at least 75% of esophageal circumference) esophagitis with no bleeding was found 23 to 33 cm from the incisors. Hematin (altered blood/peizcq-dqohei-ynun material) was found in the gastric fundus. Three localized erosions without bleeding were found in the first portion of the duodenum. Evidence of an endoscopic clips were found in the gastric body (lesser curvature). This was characterized by edema. ASSESSMENT and Plan Ms Miller is a 78-year-old female with a past medical history of iron deficiency anemia, H/o GI bleed, and CKD 3, Bronchiectasis with Pseudomonas colonization, Chronic respiratory failure with hypoxia on 2 liters home oxygen , History of non-bleeding gastric ulcer with hemorrhagic gastropathy requiring clip placement , History of adenomatous polyps of the colon, Severe GERD with erosive esophagitis, History of C. difficile colitis was brought to the hospital by EMS for evaluation because she's been vomiting bright red blood and having dark episodes of diarrhea. She also admits to having 4/10 in severity, nonradi ating abdominal pain for about 2 days. Her family members deny noticing that she looks more pale than usual. Per discussion with Dr. Wong, hemoglobin is 5.7 and 2 units of PRBCs have been ordered. Dr. Pires was consulted; he will take the patient to the OR later on today requested that we admit the patient.who is admitted for management of acute anemia 2/2 UGIB. Acute blood loss Anemia 2/2 UGIB Had EGD on 03/02/19 showed severe erosive gfastritis with bleeding no varices, will continue PPI gtt, stop octreotide. continue hh monitoring q 6 hours. She has a history of iron deficiency anemia, erosive gastritis / gastric ulcer/hemorrhagic gastropathy requiring clip placement & adenomatous polyps of the colon she received 5 units of PRBC will give 1 dose of calcium gluconate. Thrombocytopenia probably dilutional , will monitor Leucocytosis this is probably reactive to acute blood loss. however cannot rule out underlying infection/ UTI will continue with Zosyn for now. Dirty Ua no urinary symptoms will await cultures Hypernatremia due to intravascular free water deficit due to poor ora intake and hypovolemia from blood loss. DARLINE on CKD 3 Likely prerenal due to bleeding and hypovolemia. Bronchiectasis with pseudomonas colonization continue oxygen supplementation. and home meds DVT PROPHYLAXIS: SCDs because of acute GI bleed VS,Fishbone, I+O VS, Fishbone, I+O Laboratory Tests 03/02/19 03:12 03/02/19 09:01 03/02/19 15:41 Vital Signs Date Time Temp Pulse Resp B/P (MAP) Pulse Ox O2 Delivery O2 Flow Rate FiO2 03/02/19 16:00 98.5 87 18 111/55 (73) 100 Nasal Cannula 2.0 I&O- Last 24 Hours up to 6 AM 03/02/19 06:00 Intake Total 2500 ml Balance 2500 ml NOE HU MD Mar 02, 2019 17:06
[2019-03-03] VITALS (16 sets, daily range): BP systolic 86–126; BP diastolic 48–84
[2019-03-03] MEDS: PIPERACILLIN/TAZOBACTAM SOD 2.25 GM in D5W MINI-BAG PLUS 50 ML IV SCH ×2 (00:13→08:04)
[2019-03-03 03:10] LABS: BASO # 0.1 10^3/uL (0.0-0.2); BASO % 0.8 % (0.0-1.0); EOS # 0.1 10^3/uL (0.0-0.5); EOS % 1.5 % (0.0-3.0); LYMPH # 1.8 10^3/uL (1.5-5.0); LYMPH % 24.4 % (24.0-44.0); MEAN CORPUSCULAR HEMOGLOBIN 29.2 pg (27.0-33.0); MEAN CORPUSCULAR HGB CONC 30.3 g/dl (32.0-36.5); MEAN CORPUSCULAR VOLUME 96.5 fl (80.0-96.0); MONO # 0.7 10^3/uL (0.0-0.8); MONO % 9.4 % (0.0-5.0); NEUTROPHILS # 4.8 10^3/uL (1.5-8.5); NEUTROPHILS % 63.4 % (36.0-66.0); RED BLOOD COUNT 3.42 10^6/uL (4.00-5.40); WHITE BLOOD COUNT 7.6 10^3/uL (4.0-10.0)
[2019-03-03 03:13] LABS: PLATELET COUNT, AUTOMATED 69 10^3/uL (150-450)
[2019-03-03 03:29] LABS: CALCIUM LEVEL 7.5 MG/DL (8.8-10.2); CREATININE FOR GFR 1.54 MG/DL (0.55-1.30); GLOMERULAR FILTRATION RATE 34.6 (>39); MAGNESIUM LEVEL 1.7 MG/DL (1.8-2.4); POTASSIUM SERUM 4.1 MEQ/L (3.5-5.1)
[2019-03-03] MEDS: PANTOPRAZOLE SODIUM 40 MG in D5W 50 ML IV SCH ×5 (03:49→22:49)
[2019-03-03] MEDS ORDERED: FUROSEMIDE 20 MG/2 ML VIAL (J1940) IV ONE (07:15)
[2019-03-03] MEDS ORDERED: MAG SULF 1GM/100ML (MAG RUN) 1 GM in IV 1 EA IV ONE (07:15)
--- NOTE | 2019-03-03 10:44 | IPNPDOC ---
Text Note Date of Service The patient was seen on 03/03/19. NOTE SUBJECTIVE: Patient seen at bedside this am ,says her breathing is good. Has c hronic cough, continues to have small amounts of jamie overnight total 5 times. Does say that her abdomen in sore . its bothering her more in the lower part right and left. Denies any dysuria, Goo urie outpur after lasix. No fevr or chills, PHYSICAL EXAMINATION: VITAL SIGNS: Please see below. GENERAL APPEARANCE: Slim built, well-developed, not in apparent distress HEENT: Normocephalic, atraumatic, mucous members slightly dry. She does not have scleral icterus or pale conjunctiva CARDIOVASCULAR: Tachycardic. No murmurs, rubs or gallops. Her upper extremities are slightly cool to touch. She does not have lower extremity edema LUNGS:coarse breath sounds with diffuse crackles. ABDOMEN: sft, normal bowel sounds, tender inteh right and left illiac fossa, no guarding or rigidity. MUSCULOSKELETAL: Range of motion is intact in all 4 extremities is no lower extremity edema NEUROLOGICAL:. Cranial nerves II-12 are grossly intact. Speech is not dysarthric PSYCHIATRIC: Alert and oriented, able to understand and follow commands LABORATORY DATA: See below. EGD: LA Grade D (one or more mucosal breaks involving at least 75% of esophageal circumference) esophagitis with no bleeding was found 23 to 33 cm from the incisors. Hematin (altered blood/rcqter-hzewcg-uuxp material) was found in the gastric fundus. Three localized erosions without bleeding were found in the first portion of the duodenum. Evidence of an endoscopic clips were found in the gastric body (lesser curvature). This was characterized by edema. ASSESSMENT and Plan Ms Miller is a 78-year-old female with a past medical history of iron deficiency anemia, H/o recurrent GI bleed, and CKD 3, Bronchiectasis with Pseudomonas colonization, Chronic respiratory failure with hypoxia on 2 liters home oxygen , History of gastric ulcer with hemorrhagic gastropathy requiring clip placement, history of severe reflux esophagitis, History of adenomatous polyps of the colon, Severe GERD with erosive esophagitis, History of C. difficile colitis was brought to the hospital by EMS for evaluation because she's been vomiting bright red blood and having dark episodes of diarrhea. She also admits to having 4/10 in severity, nonradiating abdominal pain for about 2 days. Her family members deny noticing that she looks more pale than usual. Per discussion with Dr. Wong, hemoglobin is 5.7 and 2 units of PRBCs have been ordered. Dr. Pires was consulted; he will take the patient to the OR later on today requested that we admit the patient.who is admitted for management of acute anemia 2/2 UGIB. Acute blood loss Anemia 2/2 UGIB Had EGD on 03/02/19 showed severe erosive gastritis with bleeding no varices, will continue PPI gtt continue hh monitoring q 6 hours. She has a history of iron deficiency anemia, erosive gastritis / gastric ulcer/hemorrhagic gastropathy requiring clip placement & adenomatous polyps of the colon she received 5 units of PRBC, received calcium. Hypomagnesemia replaced IV Thrombocytopenia probably dilutional , will monitor Leucocytosis this is probably reactive to acute blood loss. No UTI, WBC normalized quicly, no fever or chills. I do not htink she has anyinfective process going on will dc zosyn. Dirty Ua no urinary symptoms urine culture negative. will dc zosyn. Hypernatremia due to intravascular free water deficit due to poor ora intake and hypovolemia from blood loss. clear liquids DARLINE on CKD 3 Likely prerenal due to bleeding and hypovolemia. Bronchiectasis with pseudomonas colonization with chronic hypoxic respiratory failure continue oxygen supplementation. and home meds Generalized weakness and deconditioning PT and OT. HX C. DIFF IN 08/2018 no issues now. GLAUCOMA DVT PROPHYLAXIS: SCDs because of acute GI bleed VS,Fishbone, I+O VS, Fishbone, I+O Laboratory Tests 03/02/19 15:41 03/02/19 21:12 03/03/19 03:01 03/03/19 08:46 Vital Signs Date Time Temp Pulse Resp B/P (MAP) Pulse Ox O2 Delivery O2 Flow Rate FiO2 03/03/19 09:00 77 21 91/55 (67) 97 Nasal Cannula 2.0 03/03/19 08:00 97.3 I&O- Last 24 Hours up to 6 AM 03/03/19 06:00 Intake Total 1725 ml Output Total 945 ml Balance 780 ml NOE HU MD Mar 03, 2019 10:44
[2019-03-03] MEDS: SUCRALFATE SUSP 1GM/10ML UD PO SCH ×2 (13:01→21:09)
--- NOTE | 2019-03-03 14:14 | IPN ---
DATE OF SERVICE: 03/03/2019 The patient underwent an upper endoscopy for a gastrointestinal (GI) bleed yesterday and showed severe erosive esophagitis with bleeding from esophageal ulcers; and overnight, she has been stable from a hematocrit standpoint, requiring no blood transfusions. She has had no nausea and no vomiting, and blood pressure has been stable but low for several days. On her physical examination, abdomen is soft, nontender, nondistended. IMPRESSION AND PLAN: The patient had an upper GI bleed. Seems to be stable with current treatment. I would recommend at this time to continue with the proton pump inhibitor. She originally had the octreotide on and it is currently stopped. It may be very reasonable to start her on some Carafate on a twice a day basis, as well. I will order some liquid Carafate for her. I do not see this in her list of multiple medication allergies present. Otherwise, it should be reasonable to progress her diet tomorrow to a regular as tolerated and followup with Dr. Pires on an as needed basis after discharge.
[2019-03-04] MEDS: PANTOPRAZOLE SODIUM 40 MG in D5W 50 ML IV SCH ×2 (04:01→08:45)
[2019-03-04 06:00] VITALS: BP 131/81
[2019-03-04 06:00] LABS: BASO % 0.4 % (0.0-1.0); EOS # 0.3 10^3/uL (0.0-0.5); EOS % 3.8 % (0.0-3.0); HEMATOCRIT 28.6 % (36.0-47.0); HEMOGLOBIN 9.1 g/dl (12.0-15.5); LYMPH # 1.6 10^3/uL (1.5-5.0); LYMPH % 20.7 % (24.0-44.0); MEAN CORPUSCULAR HEMOGLOBIN 29.6 pg (27.0-33.0); MEAN CORPUSCULAR HGB CONC 31.8 g/dl (32.0-36.5); MEAN CORPUSCULAR VOLUME 93.2 fl (80.0-96.0); MONO # 0.9 10^3/uL (0.0-0.8); MONO % 10.8 % (0.0-5.0); RED BLOOD COUNT 3.07 10^6/uL (4.00-5.40); WHITE BLOOD COUNT 7.9 10^3/uL (4.0-10.0)
[2019-03-04 06:18] LABS: PLATELET COUNT, AUTOMATED 76 10^3/uL (150-450)
[2019-03-04 06:38] LABS: CALCIUM LEVEL 7.6 MG/DL (8.8-10.2); CREATININE FOR GFR 1.22 MG/DL (0.55-1.30); GLOMERULAR FILTRATION RATE 45.3 (>39); POTASSIUM SERUM 2.9 MEQ/L (3.5-5.1)
[2019-03-04] MEDS ORDERED: POTASSIUM CHLORIDE 10 MEQ SR TABLET PO ONE ×2 (06:45→12:00)
[2019-03-04 07:01] LABS: MAGNESIUM LEVEL 1.9 MG/DL (1.8-2.4)
[2019-03-04] MEDS: SUCRALFATE SUSP 1GM/10ML UD PO SCH ×2 (08:45→22:28)
[2019-03-04] MEDS ORDERED: FLUBLOK(EGG FREE)(QUAD)INFLUENZA VACC 0.5ML SYRINGE (90682)18YRS&OLDER IM ONE (09:00)
[2019-03-04] MEDS ORDERED: KCL 10MEQ/100ML SWI (KRUN) 10 MEQ in IV 1 EA IV ONE (09:00)
[2019-03-04] MEDS ORDERED: FUROSEMIDE 20 MG/2 ML VIAL (J1940) IV ONE ×2 (10:00→15:00)
--- NOTE | 2019-03-04 10:46 | IPNPDOC ---
Text Note Date of Service The patient was seen on 03/04/19. NOTE SUBJECTIVE: Patient seen at bedside this am ,says her breathing is good. Has c hronic cough, no further jamie, tolerating diet, HH stable, BP stable. PHYSICAL EXAMINATION: VITAL SIGNS: Please see below. GENERAL APPEARANCE: Slim built, well-developed, not in apparent distress HEENT: Normocephalic, atraumatic, mucous members slightly dry. She does not have scleral icterus or pale conjunctiva CARDIOVASCULAR: Tachycardic. No murmurs, rubs or gallops. Her upper extremities are slightly cool to touch. She does not have lower extremity edema LUNGS:coarse breath sounds with diffuse crackles. Left lung sounds are very bad with crackles, coarse in nature all over the chest. ABDOMEN: sft, normal bowel sounds, nontender MUSCULOSKELETAL: Range of motion is intact in all 4 extremities is no lower extremity edema NEUROLOGICAL:. Cranial nerves II-12 are grossly intact. Speech is not dysarthric PSYCHIATRIC: Alert and oriented, able to understand and follow commands LABORATORY DATA: See below. EGD: LA Grade D (one or more mucosal breaks involving at least 75% of esophageal circumference) esophagitis with no bleeding was found 23 to 33 cm from the incisors. Hematin (altered blood/jwcqtw-hygefs-lcrc material) was found in the gastric fundus. Three localized erosions without bleeding were found in the first portion of the duodenum. Evidence of an endoscopic clips were found in the gastric body (lesser curvature). This was characterized by edema. ASSESSMENT and Plan Ms Miller is a 78-year-old female with a past medical history of iron deficiency anemia, H/o recurrent GI bleed, and CKD 3, Bronchiectasis with Pseudomonas colonization, Chronic respiratory failure with hypoxia on 2 liters home oxygen , History of gastric ulcer with hemorrhagic gastropathy requiring clip placement, history of severe reflux esophagitis, History of adenomatous polyps of the colon, Severe GERD with erosive esophagitis, History of C. di fficile colitis was brought to the hospital by EMS for evaluation because she's been vomiting bright red blood and having dark episodes of diarrhea. She also admits to having 4/10 in severity, nonradiating abdominal pain for about 2 days. Her family members deny noticing that she looks more pale than usual. Per discussion with Dr. Wong, hemoglobin is 5.7 and 2 units of PRBCs have been ordered. Dr. Pires was consulted; he will take the patient to the OR later on today requested that we admit the patient.who is admitted for management of acute anemia 2/2 UGIB. Acute blood loss Anemia 2/2 UGIB Had EGD on 03/02/19 showed severe erosive gastritis with bleeding no varices, continue PPI bid. She has a history of iron deficiency anemia, erosive gastritis / gastric ulcer/hemorrhagic gastropathy requiring clip placement & adenomatous polyps of the colon she received 5 units of PRBC, received calcium. Hypomagnesemia and hypokalemia replacing them will repeat in the pm. Thrombocytopenia probably dilutional , will monitor if does not improve will need to be followed up as outpatient. Leucocytosis this is probably reactive to acute blood loss. No UTI, WBC normalized quickly, no fever or chills. I do not think she has any infective process going on dced zosyn. Dirty Ua no urinary symptoms urine culture negative. dced zosyn. Hypernatremia resolved. due to intravascular free water deficit due to poor ora intake and hypovolemia from blood loss. advanced diet. DARLINE on CKD 3 Likely prerenal due to bleeding and hypovolemia. resolved. Bronchiectasis with pseudomonas colonization with chronic hypoxic respiratory failure continue oxygen supplementation. and home meds Generalized weakness and deconditioning PT and OT. HX C. DIFF IN 08/2018 no issues now. GLAUCOMA DVT PROPHYLAXIS: SCDs because of acute GI bleed VS,Fishbone, I+O VS, Fishbone, I+O Laboratory Tests 03/03/19 15:37 03/03/19 21:28 03/04/19 05:17 Vital Signs Date Time Temp Pulse Resp B/P (MAP) Pulse Ox O2 Delivery O2 Flow Rate FiO2 03/04/19 09:00 2.0 03/04/19 06:00 98.6 79 19 131/81 (98) 98 Nasal Cannula I&O- Last 24 Hours up to 6 AM 03/04/19 06:00 Intake Total 1640 ml Output Total 2105 ml Balance -465 ml NOE HU MD Mar 04, 2019 10:46
--- NOTE | 2019-03-04 12:42 | IPN ---
DATE OF SERVICE: 03/04/2019 The patient seems to be making some good progress from her diet standpoint. Tolerating a little bit of food, but she does have some nausea that is baseline nausea for her. It sounds as though given that she is a poor historian that this has been going on for awhile. However, from my standpoint, she has some food in front of her, and she has eaten a portion of this. Given her frail size, not unreasonable amount. However, hematocrit did drop overnight, and when talking to the nurses, the bowel movement that she had this morning and last night did not seem as though it was melanotic, mostly just was darker stool. On her abdominal examination, her abdomen is benign without any tenderness. No guarding. No rebound. IMPRESSION AND PLAN: The patient had an upper gastrointestinal (GI) bleed and will need still aggressive treatment of her esophagitis, gastritis issues; and I would recommend continuing her on her current treatment. However, if her hematocrit drops during the day today, I would recommend restarting the octreotide and making her nothing by mouth again. From the standpoint of medications at the time of discharge, she should be on a proton pump inhibitor twice a day and at least Carafate twice a day if not four times a day. Given her difficulties with some minimal swallowing probably secondary to this esophagitis, I would recommend that the Carafate be a solution.
[2019-03-04 14:00] VITALS: BP 109/60
[2019-03-04 15:00] VITALS: BP 90/48
[2019-03-04 17:32] VITALS: BP 96/58
[2019-03-04 22:00] VITALS: BP 101/60
[2019-03-04] MEDS: PANTOPRAZOLE 40MG INJ (PROTONIX) (C9113) IV SCH (22:28)
[2019-03-05 06:00] VITALS: BP 110/60
[2019-03-05 08:42] LABS: BASO % 0.1 % (0.0-1.0); EOS # 0.4 10^3/uL (0.0-0.5); EOS % 4.3 % (0.0-3.0); HEMATOCRIT 32.5 % (36.0-47.0); HEMOGLOBIN 9.8 g/dl (12.0-15.5); LYMPH % 22.6 % (24.0-44.0); MEAN CORPUSCULAR HEMOGLOBIN 29.6 pg (27.0-33.0); MEAN CORPUSCULAR HGB CONC 30.2 g/dl (32.0-36.5); MEAN CORPUSCULAR VOLUME 98.2 fl (80.0-96.0); MONO # 0.9 10^3/uL (0.0-0.8); MONO % 9.6 % (0.0-5.0); NEUTROPHILS # 5.6 10^3/uL (1.5-8.5); NEUTROPHILS % 62.8 % (36.0-66.0); RED BLOOD COUNT 3.31 10^6/uL (4.00-5.40); WHITE BLOOD COUNT 8.9 10^3/uL (4.0-10.0)
[2019-03-05 08:44] LABS: PLATELET COUNT, AUTOMATED 90 10^3/uL (150-450)
[2019-03-05] MEDS: SUCRALFATE SUSP 1GM/10ML UD PO SCH ×2 (09:00→20:23)
[2019-03-05] MEDS: PANTOPRAZOLE 40MG INJ (PROTONIX) (C9113) IV SCH (09:01)
[2019-03-05 09:05] LABS: CALCIUM LEVEL 7.7 MG/DL (8.8-10.2); CREATININE FOR GFR 1.2 MG/DL (0.55-1.30); GLOMERULAR FILTRATION RATE 46.1 (>39); POTASSIUM SERUM 3.8 MEQ/L (3.5-5.1)
--- NOTE | 2019-03-05 11:06 | IPNPDOC ---
Text Note Date of Service The patient was seen on 03/05/19. NOTE SUBJECTIVE: Patient seen at bedside this am ,says her breathing is good. Has c hronic cough, no further jamie, tolerating diet, HH stable, BP stable. Lyles out yesterday. Continue PT. PHYSICAL EXAMINATION: VITAL SIGNS: Please see below. GENERAL APPEARANCE: Slim built, well-developed, not in apparent distress HEENT: Normocephalic, atraumatic, mucous members slightly dry. She does not have scleral icterus or pale conjunctiva CARDIOVASCULAR: Tachycardic. No murmurs, rubs or gallops. Her upper extremities are slightly cool to touch. She does not have lower extremity edema LUNGS:coarse breath sounds with diffuse crackles. Left lung sounds are very bad with crackles, coarse in nature all over the chest. ABDOMEN: sft, normal bowel sounds, nontender MUSCULOSKELETAL: Range of motion is intact in all 4 extremities is no lower extremity edema NEUROLOGICAL:. Cranial nerves II-12 are grossly intact. Speech is not dysarthric PSYCHIATRIC: Alert and oriented, able to understand and follow commands LABORATORY DATA: See below. EGD: LA Grade D (one or more mucosal breaks involving at least 75% of esophageal circumference) esophagitis with no bleeding was found 23 to 33 cm from the incisors. Hematin (altered blood/nqdzmn-rshqaa-cmit material) was found in the gastric fundus. Three localized erosions without bleeding were found in the first portion of the duodenum. Evidence of an endoscopic clips were found in the gastric body (lesser curvature). This was characterized by edema. ASSESSMENT and Plan Ms Miller is a 78-year-old female with a past medical history of iron deficiency anemia, H/o recurrent GI bleed, and CKD 3, Bronchiectasis with Pseudomonas colonization, Chronic respiratory failure with hypoxia on 2 liters home oxygen , History of gastric ulcer with hemorrhagic gastropathy requiring clip placement, history of severe reflux esophagitis, History of adenomatous polyps of the colon, Severe GERD with erosive esophagitis, History of C. difficile colitis was brought to the hospital by EMS for evaluation because she's been vomiting bright red blood and having dark episodes of diarrhea. She also admits to having 4/10 in severity, nonradiating abdominal pain for about 2 days. Her family members deny noticing that she looks more pale than usual. Per discussion with Dr. Wong, hemoglobin is 5.7 and 2 units of PRBCs have been ordered. Dr. Pires was consulted; he will take the patient to the OR later on today requested that we admit the patient.who is admitted for management of acute anemia 2/2 UGIB. Acute blood loss Anemia 2/2 UGIB Had EGD on 03/02/19 showed severe erosive gastritis with bleeding no varices, continue PPI bid. She has a history of iron deficiency anemia, erosive gastritis / gastric ulcer/hemorrhagic gastropathy requiring clip placement & adenomatous polyps of the colon she received 5 units of PRBC, received calcium. Hypomagnesemia and hypokalemia replaced. Thrombocytopenia probably dilutional , will monitor if does not improve will need to be followed up as outpatient. Leucocytosis this is probably reactive to acute blood loss. No UTI, WBC normalized quickly, no fever or chills. I do not think she has any infective process going on dced zosyn. Dirty Ua no urinary symptoms urine culture negative. dced zosyn. Hypernatremia resolved. due to intravascular free water deficit due to poor ora intake and hypovolemia from blood loss. advanced diet. DARLINE on CKD 3 Likely prerenal due to bleeding and hypovolemia. resolved. Bronchiectasis with pseudomonas colonization with chronic hypoxic respiratory failure continue oxygen supplementation. and home meds Generalized weakness and deconditioning PT and OT. HX C. DIFF IN 08/2018 no issues now. GLAUCOMA DVT PROPHYLAXIS: SCDs because of acute GI bleed VS,Fishbone, I+O VS, Fishbone, I+O Laboratory Tests 03/04/19 14:22 Vital Signs Date Time Temp Pulse Resp B/P (MAP) Pulse Ox O2 Delivery O2 Flow Rate FiO2 03/05/19 06:00 98.2 88 18 110/60 (77) 97 Nasal Cannula 2.0 I&O- Last 24 Hours up to 6 AM 03/05/19 06:00 Intake Total 1275 ml Output Total 225 ml Balance 1050 ml NOE HU MD Mar 05, 2019 06:52
[2019-03-05] MEDS: PILOCARPINE 1% OPHTH SOLN 15 ML OS SCH ×3 (13:44→20:23)
[2019-03-05 14:00] VITALS: BP 102/50
[2019-03-05] MEDS: PANTOPRAZOLE 40MG TAB (PROTONIX) PO SCH (20:23)
[2019-03-06 06:00] VITALS: BP 104/57
[2019-03-06 06:01] LABS: BASO % 0.3 % (0.0-1.0); EOS # 0.4 10^3/uL (0.0-0.5); EOS % 5.4 % (0.0-3.0); HEMATOCRIT 26.8 % (36.0-47.0); HEMOGLOBIN 8.2 g/dl (12.0-15.5); LYMPH # 1.7 10^3/uL (1.5-5.0); LYMPH % 23.2 % (24.0-44.0); MEAN CORPUSCULAR HEMOGLOBIN 29.7 pg (27.0-33.0); MEAN CORPUSCULAR HGB CONC 30.6 g/dl (32.0-36.5); MEAN CORPUSCULAR VOLUME 97.1 fl (80.0-96.0); MONO # 0.9 10^3/uL (0.0-0.8); MONO % 11.5 % (0.0-5.0); NEUTROPHILS # 4.3 10^3/uL (1.5-8.5); NEUTROPHILS % 59.1 % (36.0-66.0); RED BLOOD COUNT 2.76 10^6/uL (4.00-5.40); WHITE BLOOD COUNT 7.4 10^3/uL (4.0-10.0)
[2019-03-06 06:03] LABS: PLATELET COUNT, AUTOMATED 91 10^3/uL (150-450)
[2019-03-06 06:26] LABS: CALCIUM LEVEL 7.7 MG/DL (8.8-10.2); GLOMERULAR FILTRATION RATE 56.9 (>39); POTASSIUM SERUM 3.8 MEQ/L (3.5-5.1)
[2019-03-06] MEDS: PANTOPRAZOLE 40MG TAB (PROTONIX) PO SCH ×2 (09:16→20:47)
[2019-03-06] MEDS: PILOCARPINE 1% OPHTH SOLN 15 ML OS SCH ×4 (09:16→20:47)
[2019-03-06] MEDS: SUCRALFATE SUSP 1GM/10ML UD PO SCH ×3 (09:16→20:47)
[2019-03-06 14:00] VITALS: BP 103/54
--- NOTE | 2019-03-06 18:02 | IPNPDOC ---
Text Note Date of Service The patient was seen on 03/06/19. NOTE SUBJECTIVE: -Patient seen at bedside this am -Is eating a little but this morning was frustrated that she was given oatmeal without milk and was not sure if this was intentional, and I assured her that she is not restricted from dairy -Has chronic productive cough, she reports to be at her baseline -Has been engaging in PT today PHYSICAL EXAMINATION: VITAL SIGNS: Please see below. GENERAL APPEARANCE: Thin and frail appearing, not in apparent distress HEENT: Normocephalic, atraumatic, mucous members slightly dry CARDIOVASCULAR: RRR, no mrg, no JVD, no extremity edema LUNGS:Coarse velcro-like breath sounds with diffuse crackles, on 2L NC that is her baseline. Speaking in full sentences but did stop once when she had a coughing spell with blood tinged sputum that she reported to be her baseline ABDOMEN: Normoactive bowel sounds, soft, NTND MUSCULOSKELETAL: Range of motion is intact in all 4 extremities, extremity edema NEUROLOGICAL:. Cranial nerves II-12 are grossly intact. Speech is clear and not dysarthric PSYCHIATRIC: Alert and oriented X 3 LABORATORY DATA: Reviewed. Hgb dropped to 8.2, Hct 26.8, WBC 7.4, Cr 1.00 EGD: LA Grade D (one or more mucosal breaks involving at least 75% of esophageal circumference) esophagitis with no bleeding was found 23 to 33 cm from the incisors. Hematin (altered blood/hlacno-jniaii-vxjs material) was found in the gastric fundus. Three localized erosions without bleeding were found in the first portion of the duodenum. Evidence of an endoscopic clips were found in the gastric body (lesser curvature). This was characterized by edema. ASSESSMENT: 78-year-old W with iron deficiency anemia, h/o recurrent GIBs, and CKD 3, Bronchiectasis with Pseudomonas colonization, Chronic respiratory failure with hypoxia on 2 liters home oxygen , history of gastric ulcer with hemorrhagic gastropathy requiring clip placement, history of severe reflux esophagitis, adenomatous polyps of the colon and severe GERD with erosive esophagitis, as well as a history of C. difficile colitis who was brought to the hospital by EMS for evaluation of rick hematemesis and melena with associated nonradiating abdominal pain now s/p 5u pRBCs and EGD that showed severe erosive gastritis with slowly declining H/H without any further hematemesis at this time. PLAN: Acute blood loss Anemia 2/2 UGIB -Had EGD on 03/02/19, that showed severe erosive gastritis by Dr. Pires -continue PPI bid. -She has a history of iron deficiency anemia, erosive gastritis / gastric ulcer/hemorrhagic gastropathy requiring clip placement & adenomatous polyps of the colon she received 5 units of PRBC to date -monitor daily H/H Hypomagnesemia and hypokalemia: repleted. Thrombocytopenia: chronic, with some element of consumptive given ongoing chr onic bleeding. -will monitor Leukocytosis: Resolved, was likely reactive. -had +UA with no symptoms and negative urine culture and initial empiric zosyn was discontinued Hypernatremia : resolved. -due to intravascular free water deficit due to poor oral intake and hypovolemia from blood loss. DARLINE on CKD 3: Was prerenal 2/2 bleeding and poor PO. resolved. Bronchiectasis with pseudomonas colonization with chronic hypoxic respiratory failure -continue oxygen supplementation. -continue home meds Generalized weakness and deconditioning -Ongoing PT and OT. DVT PROPHYLAXIS: SCDs because of acute GI bleed Dispo: remains inpatient with declining H/H under monitoring and ongoing PT and OT evaluation VS,Fishbone, I+O VS, Fishbone, I+O Laboratory Tests 03/06/19 05:11 Vital Signs Date Time Temp Pulse Resp B/P (MAP) Pulse Ox O2 Delivery O2 Flow Rate FiO2 03/06/19 14:00 98.2 97 18 103/54 (70) 92 Nasal Cannula 2.0 I&O- Last 24 Hours up to 6 AM 03/06/19 05:59 Intake Total 1750 ml Output Total 250 ml Balance 1500 ml ALYSON INGRAM MD Mar 06, 2019 18:02
[2019-03-06 22:00] VITALS: BP 107/54
[2019-03-07] VITALS (7 sets, daily range): BP systolic 94–114; BP diastolic 46–65
[2019-03-07 06:09] LABS: BASO % 0.4 % (0.0-1.0); EOS # 0.5 10^3/uL (0.0-0.5); HEMATOCRIT 26.3 % (36.0-47.0); HEMOGLOBIN 8.3 g/dl (12.0-15.5); LYMPH # 1.9 10^3/uL (1.5-5.0); LYMPH % 25.7 % (24.0-44.0); MEAN CORPUSCULAR HEMOGLOBIN 30.1 pg (27.0-33.0); MEAN CORPUSCULAR HGB CONC 31.6 g/dl (32.0-36.5); MEAN CORPUSCULAR VOLUME 95.3 fl (80.0-96.0); MONO # 0.9 10^3/uL (0.0-0.8); MONO % 12.7 % (0.0-5.0); NEUTROPHILS % 53.5 % (36.0-66.0); PLATELET COUNT, AUTOMATED 117 10^3/uL (150-450); RED BLOOD COUNT 2.76 10^6/uL (4.00-5.40); WHITE BLOOD COUNT 7.4 10^3/uL (4.0-10.0)
[2019-03-07 06:27] LABS: CALCIUM LEVEL 7.7 MG/DL (8.8-10.2); CREATININE FOR GFR 1.03 MG/DL (0.55-1.30); POTASSIUM SERUM 3.7 MEQ/L (3.5-5.1)
--- NOTE | 2019-03-07 07:32 | ECGEPIP ---
[facility] - ED Test Date: 2019-03-02 Pat Name: MONA BAH Department: Room: [place] [address] Gender: Female Ecologist: MARGARETTE : 1940 Requested By: RONNA Thomas Order Number: [id number] Reading MD: Deb Salvador Measurements Intervals [place] Rate: 128 P: 91 IN: 156 QRS: 68 QRSD: 84 T: 120 QT: 247 QTc: 361 Interpretive Statements PROBABLE SINUS TACHYCARDIA baseline artifact may affect interpretation NONSPECIFIC ST & T-WAVE ABNORMALITY ABNORMAL RHYTHM ECG INCREASED RATE 01/05/19 Electronically Signed on 03-07-2019 7:32:04 EST by Deb Salvador
[2019-03-07] MEDS: PANTOPRAZOLE 40MG TAB (PROTONIX) PO SCH ×2 (08:34→20:07)
[2019-03-07] MEDS: SUCRALFATE SUSP 1GM/10ML UD PO SCH ×4 (08:34→20:07)
[2019-03-07] MEDS: PILOCARPINE 1% OPHTH SOLN 15 ML OS SCH ×4 (08:35→20:07)
[2019-03-07] MEDS ORDERED: ALBUTEROL SULFATE 2.5 MG/0.5 ML INH NEB SOLN INH SCH (09:00)
--- NOTE | 2019-03-07 15:24 | IPNPDOC ---
Subjective Date Seen The patient was seen on 03/07/19. Subjective Chief Complaint/HPI Mrs. Miller is a 78 year old female who was admitted due to GI bleed and symptomatic anemia. Her is very anxious about her care and he is very informative regarding her past medical history. At the end, he verbally gave his understanding for the current plan of care for his . Pt has a nebulizer at home and should receive scheduled Albuterol QID; this has now been ordered. She reported she does not feel great today, but she feels a little better than she did on admission. She has been trying to snack [id number] as previously di garrett. Attending Note 78-year-old W with iron deficiency anemia, h/o recurrent GIBs, history of gastric ulcer with hemorrhagic gastropathy previously requiring clip, as well as history of severe reflux esophagitis, adenomatous polyps of the colon and severe GERD with erosive esophagitis who was BIBEMS for rick hematemesis and melena with associated nonradiating abdominal pain and found to have severe erosive gastritis on EGD that was done on 03/02, now s/p 6u pRBCs with the 6th given today for slowly declining H/H without further rick bleeding episodes. If her H/H is stably at expected after 1 unit tomorrow morning, we will discharge her home. We had planned to discharge her home yesterday but her Hgb dropped to low 8s from 9s and was stably low 8s this morning, so we decided to give a unit of blood with plan for discharge home tomorrow. She has been cleared by PT for home discharge. Objective Physical Examination General Exam: Positive: Alert, Cooperative, No Acute Distress Eye Exam: Positive: Conjunctiva & lids normal; Negative: Sclera icteric ENT Exam: Positive: Atraumatic; Negative: Mucous membr. moist/pink (mucus membranes dry ), Tongue Midline Neck Exam: Negative: Supple, thyromegaly Chest Exam: Positive: Normal air movement, Other (coarse crackles diffuse b/l lungs ) Heart Exam: Positive: Rate Normal, Regular Rhythm, Murmurs (3/6 murmur heard throughtout the precordium; S1S2 intact ); Negative: Gallops, Rubs Abdomen Exam: Positive: Normal bowel sounds, Soft; Negative: Tenderness Extremity Exam: Negative: Clubbing, Cyanosis, Edema Skin Exam: Positive: Nl turgor and temperature Neuro Exam: Positive: Normal Speech Psych Exam: Positive: Mood NL Assessment /Plan Assessment Pt is a 78-year-old female with iron deficiency anemia, h/o recurrent GIBs, and CKD 3, Bronchiectasis with Pseudomonas colonization, Chronic respiratory fa ilure with hypoxia on 2 liters home oxygen , history of gastric ulcer with hemorrhagic gastropathy requiring clip placement, history of severe reflux esophagitis, adenomatous polyps of the colon and severe GERD with erosive esophagitis, as well as a history of C. difficile colitis who was brought to the hospital by EMS for evaluation of rick hematemesis and melena with associated nonradiating abdominal pain now s/p 5u pRBCs and EGD that showed severe erosive gastritis with slowly declining H/H without any further hematemesis at this time. EGD: LA Grade D (one or more mucosal breaks involving at least 75% of esophageal circumference) esophagitis with no bleeding was found 23 to 33 cm from the incisors. Hematin (altered blood/xuvipw-poiloh-fbdc material) was found in the gastric fundus. Three localized erosions without bleeding were found in the first portion of the duodenum. Evidence of an endoscopic clips were found in the gastric body (lesser curvature). This was characterized by edema. Acute blood loss Anemia 2/2 UGIB -Had EGD on 03/02/19, that showed severe erosive gastritis by Dr. Pires -continue PPI BID and sucralfate QID. -She has a history of iron deficiency anemia, erosive gastritis / gastric ulcer/hemorrhagic gastropathy requiring clip placement & adenomatous polyps of the colon she received 5 units of PRBC to date. H&H have declined over previous 48 hours, 9.8-8.3; repeat with 1 unit PRBC today -monitor daily H/H Hypomagnesemia and hypokalemia - resolved with supplementation Thrombocytopenia -chronic, with some element of consumptive given ongoing chronic bleeding. -continue to monitor clinically Leukocytosis - Resolved, was likely reactive. -had +UA with no symptoms and negative urine culture and initial empiric zosyn was discontinued Hypernatremia - resolved -due to intravascular free water deficit due to poor oral intake and hypovolemia from blood loss DARLINE on CKD 3 - prerenal 2/2 bleeding and poor PO - resolved Bronchiectasis with pseudomonas colonization with chronic hypoxic respiratory failure -continue oxygen supplementation. -continue DuoNebs as prescribed and monitor clinically Generalized weakness and deconditioning -PT/OT referred. Pt declined as she is 'not near as bad as when she was in ICU." Plan/VTE VTE Prophylaxis Ordered?: Yes (SCDs because of acute GI bleed) VS, I&O, 24H, Fishbone Vital Signs/I&O Vital Signs Date Time Temp Pulse Resp B/P (MAP) Pulse Ox O2 Delivery O2 Flow Rate FiO2 03/07/19 14:00 97.4 90 20 110/52 100 Nasal Cannula 2.0 I&O- Last 24 Hours up to 6 AM 03/07/19 06:00 Intake Total 990 ml Output Total 550 ml Balance 440 ml Laboratory Data 24H LABS Laboratory Tests 2 03/07/19 05:15: Immature Granulocyte % (Auto) 0.7, Neutrophils (%) (Auto) 53.5, Lymphocytes (%) (Auto) 25.7, Monocytes (%) (Auto) 12.7H, Eosinophils (%) (Auto) 7.0H, Basophils (%) (Auto) 0.4, Neutrophils # (Auto) 4.0, Lymphocytes # (Auto) 1.9, Monocytes # (Auto) 0.9H, Eosinophils # (Auto) 0.5, Basophils # (Auto) 0.0, Nucleated Red Blood Cells % (auto) 0.0, Anion Gap 5L, Glomerular Filtration Rate 55.0, Calcium Level 7.7L CBC/BMP Laboratory Tests 03/07/19 05:15 Microbiology Microbiology 03/02/19 Urine Culture - Final, Complete ALBINO ARROYO PA-C Mar 07, 2019 15:24 ALYSON INGRAM MD Mar 07, 2019 18:20
[2019-03-07] MEDS: ALBUTEROL SULFATE 2.5 MG/0.5 ML INH NEB SOLN INH SCH ×2 (15:26→19:44)
[2019-03-08 06:00] VITALS: BP 115/67
[2019-03-08 06:12] LABS: BASO # 0.1 10^3/uL (0.0-0.2); BASO % 0.7 % (0.0-1.0); EOS # 0.4 10^3/uL (0.0-0.5); EOS % 5.4 % (0.0-3.0); HEMATOCRIT 29.7 % (36.0-47.0); HEMOGLOBIN 9.4 g/dl (12.0-15.5); LYMPH # 1.7 10^3/uL (1.5-5.0); LYMPH % 23.3 % (24.0-44.0); MEAN CORPUSCULAR HEMOGLOBIN 30.2 pg (27.0-33.0); MEAN CORPUSCULAR HGB CONC 31.6 g/dl (32.0-36.5); MEAN CORPUSCULAR VOLUME 95.5 fl (80.0-96.0); MONO # 0.9 10^3/uL (0.0-0.8); MONO % 12.7 % (0.0-5.0); NEUTROPHILS # 4.3 10^3/uL (1.5-8.5); NEUTROPHILS % 57.2 % (36.0-66.0); PLATELET COUNT, AUTOMATED 129 10^3/uL (150-450); RED BLOOD COUNT 3.11 10^6/uL (4.00-5.40); WHITE BLOOD COUNT 7.4 10^3/uL (4.0-10.0)
[2019-03-08 06:34] LABS: CALCIUM LEVEL 7.7 MG/DL (8.8-10.2); CREATININE FOR GFR 1.06 MG/DL (0.55-1.30); GLOMERULAR FILTRATION RATE 53.2 (>39); POTASSIUM SERUM 3.7 MEQ/L (3.5-5.1)
[2019-03-08] MEDS: ALBUTEROL SULFATE 2.5 MG/0.5 ML INH NEB SOLN INH SCH ×2 (07:35→12:48)
[2019-03-08] MEDS: SUCRALFATE SUSP 1GM/10ML UD PO SCH ×2 (08:15→13:23)
[2019-03-08] MEDS: PILOCARPINE 1% OPHTH SOLN 15 ML OS SCH ×2 (08:15→13:23)
[2019-03-08] MEDS: PANTOPRAZOLE 40MG TAB (PROTONIX) PO SCH (08:15)
[2019-03-08] MEDS ORDERED: SUCR10SS PO (09:39)
--- NOTE | 2019-03-08 14:27 | DS.PDOC ---
Discharge Summary General Date of Admission Mar 02, 2019 at 05:45 Date of Discharge 03/08/2019 Discharge Summary PROCEDURES PERFORMED DURING STAY: EGD, blood transfusions ADMITTING DIAGNOSES: 1. Acute Anemia 2/2 UGIB 2. SIRS vs Sepsis? 3. Hypernatremia 2/2 Dehydration 4. DARLINE on CKD 3 5. Bronchiectasis DISCHARGE DIAGNOSES: 1. Acute Anemia 2/2 UGIB 2. SIRS vs Sepsis? 3. Hypernatremia 2/2 Dehydration 4. DARLINE on CKD 3 5. Bronchiectasis 6. Electrolyte imbalance 7. Thrombocytopenia 8. Bronchiectasis with pseudomonas colonization with chronic hypoxic respiratory failure 9. Generalized weakness and deconditioning COMPLICATIONS/CHIEF COMPLAINT: Gi Hemorrhage. HISTORY OF PRESENT ILLNESS: "This is a 78-year-old female was brought to the hospital by EMS for evaluation because she has been vomiting bright red blood, episodes of dark diarrhea along with 4/10 in severity, nonradiating abdominal pain for about 2 days. Her family members deny noticing that she looks more pale than usual. Per discussion with Dr. Wong, her hemoglobin is 5.7 and 2 units of PRBCs have been ordered. Dr. Pires was consulted; he will take the patient to the OR later on today requested that we admit the patient. Ms Miller is a 78-year-old female with a past medical history of bronchiectasis, iron deficiency anemia, GI bleed, and CKD 3 who is admitted for management of acute anemia 2/2 UGIB." HOSPITAL COURSE: Mrs. Miller is a 78-year-old female with iron deficiency anemia, h/o recurrent GIBs, history of gastric ulcer with hemorrhagic gastropathy previously requiring clip, as well as history of severe reflux esophagitis, adenomatous polyps of the colon and severe GERD with erosive esophagitis who was BIBEMS for rick hematemesis and melena with associated nonradiating abdominal pain and found to have severe erosive gastritis on EGD that was done on 03/02, now s/p 6u pRBCs with the 6th given (03/07/2019) for slowly declining H/H without further rick bleeding episodes. We had planned to discharge her home 03/06/2019 but her Hgb dropped to low 8s from 9s and remained in the low 8s (03/07/2019), so we decided to give a unit of blood with plan for discharge home 03/08/2019. She was cleared by PT for home discharge. Pt and her have agreed to try a new Home Health provider on discharge. DISCHARGE MEDICATIONS: Please see below. ALLERGIES: Please see below. PHYSICAL EXAMINATION ON DISCHARGE: VITAL SIGNS: Please see below. General Exam: Positive: Alert, Cooperative, No Acute Distress Eye Exam: Positive: Conjunctiva & lids normal; Negative: Sclera icteric ENT Exam: Positive: Atraumatic; Negative: Mucous membr. moist/pink (mucus membranes dry ), Tongue Midline Neck Exam: Negative: Supple, thyromegaly Chest Exam: Positive: Normal air movement, Other (coarse crackles diffuse b/l lungs ) Heart Exam: Positive: Rate Normal, Regular Rhythm, Murmurs (3/6 murmur heard throughout the precordium; S1S2 intact ); Negative: Gallops, Rubs Abdomen Exam: Positive: Normal bowel sounds, Soft; Negative: Tenderness Extremity Exam: Negative: Clubbing, Cyanosis, Edema Skin Exam: Positive: Nl turgor and temperature Neuro Exam: Positive: Normal Speech Psych Exam: Positive: Mood NL LABORATORY DATA: Please see below. IMAGING: EGD: LA Grade D (one or more mucosal breaks involving at least 75% of esophageal circumference) esophagitis with no bleeding was found 23 to 33 cm fr om the incisors. Hematin (altered blood/ccvihw-ftjlie-ekif material) was found in the gastric fundus. Three localized erosions without bleeding were found in the first portion of the duodenum. Evidence of an endoscopic clips were found in the gastric body (lesser curvature). This was characterized by edema. Chest CT w/out contrast Impression: "1. Scattered peripheral consolidations in the right lung. Mildly increased from prior. Fibrosis versus pneumonia. 2. Varicoid bronchiectasis in the anterior basal right lower lobe. Unchanged from prior. 3. Extensive cystic changes in the left lung. Increased from prior. 4. Moderate sliding type gastric hiatal hernia. 5. Additional findings as describe d. Abd/Pelvis CT w/out contrast Impression: "1. Mild peripancreatic haziness. Pancreatitis versus duodenitis. 2. Diffuse thickening of the bowel as described. Infectious versus inflammatory versus ischemic enterocolitis versus shock bowel. Correlate clinically. 3. Moderate sliding type gastric hiatal hernia. 4. Cholelithiasis without acute cholecystitis. 5. Additional findings as described. Renal US Impression: "Evidence for chronic medical renal disease. No hydronephrosis." ACTIVITY: As tolerated. Strongly advised to consider PT - declined at this time. DIET: As tolerated; information RE: High Fiber diet provided DISCHARGE PLAN: Discharge home with Home Health. Close Follow-up with GI and PCP. Continue PPI BID and Carafate QID. DISPOSITION: Home, Self-Care. DISCHARGE INSTRUCTIONS: 1. Discharge home with Home Health. Close Follow-up with GI and PCP. Continue PPI BID and Carafate QID. ITEMS TO FOLLOWUP ON ON OUTPATIENT: 1. As above DISCHARGE CONDITION: 35 minutes. TIME SPENT ON DISCHARGE: Greater than minutes. Vital Signs/I&Os Vital Signs Date Time Temp Pulse Resp B/P (MAP) Pulse Ox O2 Delivery O2 Flow Rate FiO2 03/08/19 09:00 2.0 03/08/19 06:00 97.3 88 16 115/67 (83) 98 Nasal Cannula I&O- Last 24 Hours up to 6 AM 03/08/19 06:00 Intake Total 1637 ml Output Total 1900 ml Balance -263 ml Laboratory Data Labs 24H Laboratory Tests 2 03/08/19 05:26: Immature Granulocyte % (Auto) 0.7, Neutrophils (%) (Auto) 57.2, Lymphocytes (%) (Auto) 23.3L, Monocytes (%) (Auto) 12.7H, Eosinophils (%) (Auto) 5.4H, Basophils (%) (Auto) 0.7, Neutrophils # (Auto) 4.3, Lymphocytes # (Auto) 1.7, Monocytes # (Auto) 0.9H, Eosinophils # (Auto) 0.4, Basophils # (Auto) 0.1, Nucleated Red Blood Cells % (auto) 0.0, Anion Gap 6L, Glomerular Filtration Rate 53.2, Calcium Level 7.7L CBC/BMP Laboratory Tests 03/08/19 05:26 Microbiology Microbiology 03/02/19 Urine Culture - Final, Complete Discharge Medications Scheduled Ascorbic Acid (Vitamin C) 250 Mg Tab, 250 MG PO DAILY, (Reported) Calcium Carbonate/Vitamin D3 (Oyster Shell 500-Vit D3 200 Tb) 1 Tab Tab, 1 TAB PO DAILY, (Reported) Multivitamins (Thera M Plus Tablet) 1 Tab Tab, 1 TAB PO DAILY, (Reported) Pantoprazole Sodium (Pantoprazole Sodium) 40 Mg Tablet.dr, 40 MG PO BID, (Reported) Pilocarpine HCl (Pilocarpine HCl) 1% 15ML Drops, 1 DROP OS QID, (Reported) Sucralfate (Sucralfate) 1 Gm/10 Ml Oral.susp, 1 GM PO QID Scheduled PRN Albuterol Sulf (Albuterol Sulfate) 2.5 Mg/3 Ml Nebu, 2.5 MG INH QID PRN for SHORTNESS OF BREATH, (Reported) Allergies Coded Allergies: latanoprost (Verified Allergy, Severe, 12/05/18) levofloxacin (Verified Allergy, Severe, 12/05/18) bimatoprost (Verified Allergy, Intermediate, EYE REDNESS, 12/05/18) cephalexin (Verified Allergy, Intermediate, 12/05/18) dorzolamide (Verified Allergy, Intermediate, CONGESTED,COUGH, 12/05/18) timolol (Verified Allergy, Intermediate, CONGESTED,COUGH, 12/05/18) brimonidine (Verified Allergy, Unknown, 12/05/18) doxycycline (Verified Allergy, Unknown, 12/05/18) travoprost (Verified Adverse Reaction, Severe, EYE PAIN HEART RACING, 12/05/18) Sulfa (Sulfonamide Antibiotics) (Verified Adverse Reaction, Intermediate, GI ISSUES, 12/05/18) diclofenac (Verified Adverse Reaction, Intermediate, VOMITS, 12/05/18) moxifloxacin (Verified Adverse Reaction, Mild, DIARRHEA, 12/05/18) ALBINO ARROYO PA-C Mar 08, 2019 14:27
== END 2019-03-08 13:32 | disposition home health service (06) | DRG 811 ==
LOC: M ED 02:56 → M ED INP 05:45 → M ICU 10:11 → M MSPAV 03-03 15:08
PROVIDERS: ADMIT Internal Medicine; ATTEND Internal Medicine
PROC: 30233N1 Transfusion of Nonautologous Red Blood Cells into Peripheral Vein, Percutaneous Approach (ICD-10-PCS; 2019-03-02)
PROC: 0DJ08ZZ Inspection of Upper Intestinal Tract, Via Natural or Artificial Opening Endoscopic (ICD-10-PCS; principal; 2019-03-02 05:45)
DX: D62 Acute posthemorrhagic anemia (principal); K29.71 Gastritis, unspecified, with bleeding; E87.0 Hyperosmolality and hypernatremia; N17.9 Acute kidney failure, unspecified; J96.11 Chronic respiratory failure with hypoxia; J47.9 Bronchiectasis, uncomplicated; D50.9 Iron deficiency anemia, unspecified; K21.0 Gastro-esophageal reflux disease with esophagitis; N18.3 Chronic kidney disease, stage 3 (moderate); D69.6 Thrombocytopenia, unspecified; Z98.41 Cataract extraction status, right eye; Z98.42 Cataract extraction status, left eye; Z99.81 Dependence on supplemental oxygen; Z77.22 Contact with and (suspected) exposure to environmental tobacco smoke (acute) (chronic); Z79.899 Other long term (current) drug therapy; Z88.1 Allergy status to other antibiotic agents; Z88.2 Allergy status to sulfonamides; Z88.8 Allergy status to other drugs, medicaments and biological substances; Z86.010 Personal history of colon polyps

== ENCOUNTER → 2019-04-10 | Outpatient (REF) | payer MEDICARE ==
[~2019-04-10] MED LIST changes: +PILO1OPD OS; +SUCR1ORA2 PO
[2019-04-10 09:59] LABS: BASO % 0.5 % (0.0-1.0); EOS # 0.5 10^3/uL (0.0-0.5); EOS % 5.6 % (0.0-3.0); HEMATOCRIT 31.6 % (36.0-47.0); HEMOGLOBIN 9.8 g/dl (12.0-15.5); LYMPH # 1.7 10^3/uL (1.5-5.0); LYMPH % 21.3 % (24.0-44.0); MEAN CORPUSCULAR HEMOGLOBIN 29.3 pg (27.0-33.0); MEAN CORPUSCULAR VOLUME 94.3 fl (80.0-96.0); MONO % 11.8 % (0.0-5.0); NEUTROPHILS # 4.9 10^3/uL (1.5-8.5); NEUTROPHILS % 60.3 % (36.0-66.0); PLATELET COUNT, AUTOMATED 153 10^3/uL (150-450); RED BLOOD COUNT 3.35 10^6/uL (4.00-5.40); WHITE BLOOD COUNT 8.1 10^3/uL (4.0-10.0)
[2019-04-10 10:24] LABS: BILIRUBIN,TOTAL 0.5 MG/DL (0.2-1.0); CALCIUM LEVEL 9.8 MG/DL (8.8-10.2); CREATININE FOR GFR 1.56 MG/DL (0.55-1.30); GLOMERULAR FILTRATION RATE 34.1 (>39); TOTAL PROTEIN 7.6 GM/DL (6.4-8.2)
== END ==
LOC: M SFHCPLAZ 07:33
PROVIDERS: ATTEND Family Medicine
DX: R53.83 Other fatigue (principal); D63.8 Anemia in other chronic diseases classified elsewhere; D89.0 Polyclonal hypergammaglobulinemia; N18.3 Chronic kidney disease, stage 3 (moderate)

== ENCOUNTER → 2019-04-11 | Outpatient (CLI) | payer MEDICARE ==
[2019-04-11 13:03] LABS: CALCIUM LEVEL 9.6 MG/DL (8.8-10.2); CREATININE FOR GFR 1.58 MG/DL (0.55-1.30); GLOMERULAR FILTRATION RATE 33.6 (>39); POTASSIUM SERUM 4.1 MEQ/L (3.5-5.1)
== END ==
LOC: M PLALAB 09:26
PROVIDERS: ATTEND Family Medicine
DX: N18.3 Chronic kidney disease, stage 3 (moderate) (principal)

== ENCOUNTER → 2019-04-12 | Outpatient (CLI) | payer MEDICARE ==
--- NOTE | 2019-04-12 14:34 | REP ---
Clinical: decreased renal function. Technique: Real time perrin scale ultrasound examination using curved array transducer. Findings: Right kidney appears mildly atrophic and hyperechoic suggesting chronic renal disease and measures 8.7 x 5.1 x 4.2 cm. No hydronephrosis, nephrolithiasis, cystic or mass lesion identified. The left kidney is normal in size and reniform shape and appears hyperechoic with 1.4 cm mid pole cyst. Left kidney measures 9.2 x 3.5 x 4.1 cm without hydronephrosis, nephrolithiasis or renal mass lesion. Bladder is normal and bilateral ureteral jets are identified. Impression: Age-related renal disease. Small left renal cyst. No hydronephrosis. Electronically Signed by Marcelo Chapin MD 04/12/2019 02:26 P
== END ==
LOC: M RAD 13:37
PROVIDERS: ATTEND Family Medicine
DX: N18.3 Chronic kidney disease, stage 3 (moderate) (principal)

== ENCOUNTER → 2019-05-01 | Outpatient (REF) | payer MEDICARE ==
[2019-05-01 18:15] LABS: PERCENT SATURATION 13.6 % (13.2-45.0)
== END ==
LOC: M LAB REF 16:56
PROVIDERS: ATTEND Internal Medicine Nephrology
DX: D50.9 Iron deficiency anemia, unspecified (principal)

== ENCOUNTER 2019-06-20 20:05 | Inpatient (IN) | payer MEDICARE ==
[~2019-06-20] VITALS: Ht 152.4 cm; Wt 44.6 kg
[2019-06-20] MEDS ORDERED: NS 1,000 ML IV ONE (20:30)
[2019-06-20] MEDS ORDERED: ONDANSETRON 4MG/2ML VIAL IV ONE ×2 (21:15→21:30)
[2019-06-20 21:26] LABS: ALBUMIN 2.2 GM/DL (3.2-5.2); ALT/SGPT 27 U/L (12-78); BILIRUBIN,DIRECT 0.1 MG/DL (0.0-0.2); BILIRUBIN,TOTAL 0.3 MG/DL (0.2-1.0); BLOOD UREA NITROGEN 37 MG/DL (7-18); CALCIUM LEVEL 8.8 MG/DL (8.8-10.2); CARBON DIOXIDE LEVEL 25 MEQ/L (21-32); CHLORIDE LEVEL 100 MEQ/L (98-107); CK-MB VALUE MASS < 1.0 NG/ML (<3.6); CPK CREATINE PHOSPHOKINASE 73 U/L (26-192); CREATININE FOR GFR 1.83 MG/DL (0.55-1.30); GLOMERULAR FILTRATION RATE 28.3 (>39); GLUCOSE, FASTING 137 MG/DL (70-100); LIPASE 84 U/L (73-393); MB/CK RELATIVE INDEX 1.37 (< OR =4); POTASSIUM SERUM 5.1 MEQ/L (3.5-5.1); SODIUM LEVEL 140 MEQ/L (136-145); TOTAL PROTEIN 6.4 GM/DL (6.4-8.2); TROPONIN I < 0.02 NG/ML (< 0.10)
[2019-06-20 21:41] LABS: BASO % 0.2 % (0.0-1.0); EOS # 0.1 10^3/uL (0.0-0.5); EOS % 0.4 % (0.0-3.0); HEMATOCRIT 24.2 % (36.0-47.0); HEMOGLOBIN 7.4 g/dl (12.0-15.5); LYMPH # 2.2 10^3/uL (1.5-5.0); LYMPH % 15.5 % (24.0-44.0); MEAN CORPUSCULAR HEMOGLOBIN 28.6 pg (27.0-33.0); MEAN CORPUSCULAR HGB CONC 30.6 g/dl (32.0-36.5); MEAN CORPUSCULAR VOLUME 93.4 fl (80.0-96.0); MONO # 1.2 10^3/uL (0.0-0.8); MONO % 8.6 % (0.0-5.0); NEUTROPHILS # 10.5 10^3/uL (1.5-8.5); NEUTROPHILS % 74.5 % (36.0-66.0); PLATELET COUNT, AUTOMATED 221 10^3/uL (150-450); RED BLOOD COUNT 2.59 10^6/uL (4.00-5.40)
[2019-06-20] MEDS ORDERED: NS 500 ML IV ONE (21:45)
[2019-06-20] MEDS ORDERED: PANTOPRAZOLE 40MG VIAL (C9113 PER 1) IV ONE (21:45)
[2019-06-20 21:53] LABS: INR 1.44; PROTHROMBIN TIME 17.3 SECONDS (11.8-14.0)
[2019-06-20 22:37] VITALS: BP 93/54
[2019-06-20 22:49] VITALS: BP 96/49
[2019-06-20 22:51] VITALS: BP 101/53
[2019-06-20] MEDS: PANTOPRAZOLE SODIUM 40 MG in D5W 50 ML IV SCH (22:58)
--- NOTE | 2019-06-20 23:03 | HPEPDOC ---
General Date of Admission Jun 20, 2019 at 22:25 Date of Service: Jun 20, 2019 Chief Complaint The patient is a 78-year-old female Who presented to the hospital after experiencing nausea and vomiting of coffee-ground like material History of Present Illness Patient is a 78-year-old female with a PMHx of Bronchiectasis (w/ Pseudomonas colonization), CKD3, Chronic Iron deficiency anemia, Chronic thrombocytopenia, Hx of GI bleeds / Severe GERD / Erosive Esophagitis / Hemorrhagic gastrolatry, Hx of C. diff, who presented to the hospital after experiencing nausea and vomiting this afternoon. Patient reported that she had experienced 4-5 episodes of vomiting coffee-ground like emesis. Patient reports that he may have had some bright red blood in it as well. Patient has reported that back in February. She experiences similar episode and required multiple blood transfusions. Patient had an EGD completed on 03/02/2019, that have revealed grade D erosive esophagitis coffee-ground like material in gastric fundus duodenal erosions without bleeding. Since her discharge on 03/08/2019. Patient was advised to continue with PPIs and Carafate. However, she has reported to have ran out of her medications one month ago. Patient reports lightheadedness and dizziness. Patient reports that she does not express any chest pain. Denies any change in her baseline cough. Denies any fevers. Does report experiencing shortness of breath with exertion. Patient does report associated chills. Patient reports she is experiencing epigastric pain 5/10, sharp, occurring intermittently. Patient has reported loose bowel movements, most recent of which was this morning. Patient denies any blood in her stool and reports the stool was dark brown. Patient denies any urinary discomfort. Patient reports her appetite is normal and denies any significant changes in her weight. Home Medications Scheduled Ascorbic Acid (Vitamin C) 250 Mg Tab, 250 MG PO DAILY, (Reported) Calcium Carbonate/Vitamin D3 (Oyster Shell 500-Vit D3 200 Tb) 1 Tab Tab, 1 TAB PO DAILY, (Reported) Multivitamins (Thera M Plus Tablet) 1 Tab Tab, 1 TAB PO DAILY, (Reported) Pilocarpine HCl (Pilocarpine HCl) 1% 15ML Drops, 1 DROP OS QID, (Reported) Scheduled PRN Albuterol Sulf (Albuterol Sulfate) 2.5 Mg/3 Ml Nebu, 2.5 MG INH QID PRN for SHORTNESS OF BREATH, (Reported) Allergies Coded Allergies: latanoprost (Verified Allergy, Severe, 12/05/18) levofloxacin (Verified Allergy, Severe, 12/05/18) bimatoprost (Verified Allergy, Intermediate, EYE REDNESS, 12/05/18) cephalexin (Verified Allergy, Intermediate, 12/05/18) dorzolamide (Verified Allergy, Intermediate, CONGESTED,COUGH, 12/05/18) timolol (Verified Allergy, Intermediate, CONGESTED,COUGH, 12/05/18) brimonidine (Verified Allergy, Unknown, 12/05/18) doxycycline (Verified Allergy, Unknown, 12/05/18) travoprost (Verified Adverse Reaction, Severe, EYE PAIN HEART RACING, 12/05/18) Sulfa (Sulfonamide Antibiotics) (Verified Adverse Reaction, Intermediate, GI ISSUES, 12/05/18) diclofenac (Verified Adverse Reaction, Intermediate, VOMITS, 12/05/18) moxifloxacin (Verified Adverse Reaction, Mild, DIARRHEA, 12/05/18) Past Medical History Medical History Bronchiectasis (w/ Pseudomonas colonization), CKD3, Chronic Iron deficiency anemia, Chronic thrombocytopenia, Hx of GI bleeds / Severe GERD / Erosive Esophagitis / Hemorrhagic gastrolatry, Hx of C. diff, Surgical History Bilateral cataract surgery Family History - Mother with history of colon cancer Social History - Denies the use of alcohol, tobacco or illicit drugs - Denies recent travel or sick contacts - Lives with - Occupation; patient needs to work at [employer] Review of Systems Other systems 10 point review of systems complete, all negative otherwise stated in HPI Vital Signs - Vitals: BP 93/54, HR 122, RR 19, Sat 100%NC4L, Temp 96.7F - General: Lying in bed, Reporting abdominal pain, AAOx3 - HEENT: NC, AT, Dry dark blood around mouth, PERRLA, EOMI - CVS: Tachycardic, +S1S2 - Lungs: Asymmetric; decreased at left lung field, No appreciable wheezing / rales / rhonchi - Abdomen: Soft, Non-distended, Epigastric tenderness noted - Extremities: No lower extremity edema, No calf tenderness - Neuro: No focal motor or sensory deficit - Skin: No visible rashes Laboratory Data Labs 24H Laboratory Tests 2 06/20/19 20:30: Anion Gap 15, Glomerular Filtration Rate 28.3L, Lactic Acid Level 10.4*H, Calcium Level 8.8, Total Bilirubin 0.3, Direct Bilirubin 0.1, Aspartate Amino Transf (AST/SGOT) 42H, Alanine Aminotransferase (ALT/SGPT) 27, Alkaline Phosphatase 113, Total Creatine Kinase 73, Creatine Kinase MB < 1.0, Creatine Kinase MB Relative Index 1.37, Troponin I < 0.02, Total Protein 6.4, Albumin 2.2L, Albumin/Globulin Ratio 0.52L, Lipase 84 06/20/19 21:14: Immature Granulocyte % (Auto) 0.8, Neutrophils (%) (Auto) 74.5H, Lymphocytes (%) (Auto) 15.5L, Monocytes (%) (Auto) 8.6H, Eosinophils (%) (Auto) 0.4, Basophils (%) (Auto) 0.2, Neutrophils # (Auto) 10.5H, Lymphocytes # (Auto) 2.2, Monocytes # (Auto) 1.2H, Eosinophils # (Auto) 0.1, Basophils # (Auto) 0.0, Nucleated Red Blood Cells % (auto) 0.0, Prothrombin Time 17.3H, Prothromb Time International Ratio 1.44, Activated Partial Thromboplast Time 29.0 CBC/BMP Laboratory Tests 06/20/19 20:30 06/20/19 21:14 Microbiology Microbiology 06/20/19 Blood Culture, Received Pending 06/20/19 Blood Culture, Received Pending Plan / VTE VTE Prophylaxis Ordered?: Yes Plan Plan Acute blood loss anemia / symptomatic anemia - likely 2/2 upper GI bleed - Patient has presented to the hospital after experiencing 4-5 episodes of coffee-ground like emesis this afternoon - Hx of Non-bleeding gastric ulcers / hemorrhagic gastropathy requiring clipping / adenomatous polyps of the colon - Currently, patient is tachycardic - Hemoglobin is currently lower (7.9) than baseline (~10) and patient appears to be dehydrated - Lipase wnl - Will continue with aggressive IV fluid and blood transfusion as hesitation - c/w 2 large bore IV lines; c/w IV fluid resuscitation with normal saline - Will transfuse 4 units of PRBC total; ER has ordered 1 unit PRBC - Will start protonix drip and Carafate - Will keep NPO and place in ICU for continued monitoring - Will consult GI; case discussed with Dr. Sánchez - plan for likely EGD on 06/21/2019 Lactic acidosis likely 2/2 hypovolemia - Will continue with aggressive IV fluid hydration Leukocytosis - possibly 2/2 reactive etiology, possibly 2/2 aspiration - Currently, patient is afebrile - Will check blood cultures / PCT / sputum cultures - Will check CXR / GI panel - Will provide empiric coverage with Zosyn for intra-abdominal and HCA pneumonia coverage Acute kidney injury on CKD3 - Patients baseline creatinine appears to run at 1.2 - Creatinine on admission of 1.83 - Will avoid nephrotoxic medications - Will continue with aggressive IV fluid hydration Bronchiectasis - Patient has as history of Pseudomonas colonization Chronic Iron deficiency anemia - See above Chronic thrombocytopenia - Platelet count appears to be within normal range at this point; however, could be falsely elevated because of dehydration - Will continue to monitor Hx of C. diff - Patient has reported loose stools - Will check a GI panel Gastrointestinal prophylaxis - Will start Protonix DVT prophylaxis - Will start TEDs/ Darlenes SHEKHAR CARRILLO MD Jun 20, 2019 23:03
[2019-06-20 23:51] VITALS: BP 75/41
[2019-06-21] VITALS (23 sets, daily range): BP systolic 70–140; BP diastolic 44–77
--- NOTE | 2019-06-21 01:19 | ECGEPIP ---
[facility] - ED Test Date: 2019-06-20 Pat Name: MONA BAH Department: Room: - Gender: Female Seam Taper Machine: STUART : [id number] Requested By: STONEY Pool Order Number: [id number] Reading MD: Stoney Pinzon Measurements Intervals [place] Rate: 126 P: 103 MA: 143 QRS: 66 QRSD: 93 T: 71 QT: 311 QTc: 451 Interpretive Statements SINUS TACHYCARDIA Delayed anterior R wave progression Nonspecific ST-T wave abnormalities Similar to tracing done 03-02-19 Electronically Signed on 06-21-2019 1:19:19 EDT by Stoney Pinzon
--- NOTE | 2019-06-21 01:29 | REPVR ---
PROCEDURE INFORMATION: Exam: XR Abdomen, 1 View Exam date and time: 06/21/2019 12:56 AM Age: 78 years old Clinical indication: Abdominal tenderness; Additional info: Evaluate for free air TECHNIQUE: Imaging protocol: XR of the abdomen. Views: Frontal supine view of the abdomen. 1 View. COMPARISON: RENAL US 04/12/2019 1:45 PM FINDINGS: Lungs: Opacity at the left lung base. The findings may reflect chronic cystic changes. Follow-up chest films and comparison to prior studies may be of value. Gastrointestinal tract: No bowel obstruction. Intraperitoneal space: Surgical clips in the left upper quadrant of the abdomen. Please correlate with known history. Organs: Known gallstone. Potential left renal stones. Bones/joints: No acute fracture. Chronic degenerative changes. Soft tissues: Psoas margins well defined. IMPRESSION: 1. Opacity at the left lung base. The findings may reflect chronic cystic changes. Follow-up chest films and comparison to prior studies may be of value. 2. No evidence of bowel obstruction. 3. Surgical clips in the left upper quadrant of the abdomen. 4. Potential gallstones. 5. Potential left renal stones. 6. Chronic osseous changes. Electronically signed by: Marcelo Louis On 06/21/2019 01:28:55 AM
[2019-06-21] MEDS: NS 1,000 ML IV SCH ×4 (01:53→20:01)
[2019-06-21] MEDS ORDERED: ZOSYN 2.25GM VIAL (J2543) As Ordered ONE (02:29)
[2019-06-21] MEDS: PIPERACILLIN/TAZOBACTAM SOD 2.25 GM in D5W MINI-BAG PLUS 50 ML IV SCH ×4 (02:51→23:53)
[2019-06-21] MEDS: PANTOPRAZOLE SODIUM 40 MG in D5W 50 ML IV SCH ×4 (03:18→19:00)
[2019-06-21] MEDS: ONDANSETRON 4MG/2ML VIAL IV PRN ×2 (03:18→11:55)
[2019-06-21] MEDS: SUCRALFATE 1 GM TAB PO SCH ×5 (03:19→23:53)
--- NOTE | 2019-06-21 03:30 | REP ---
Clinical: Leukocytosis. Comparison: 01/05/2019, 12/22/2018. Findings: Extensive chronic pleuroparenchymal changes involving the left hemithorax include ipsilateral mediastinal shift with presumed volume loss, diffuse opacification with irregular underlying fibrosis and cystic changes similar to prior examination. The right hemithorax demonstrates relatively appropriate aeration with diffuse chronic fibrosis and interstitial changes primarily noted at the right apex and medial right base. No obvious pneumothorax. Underlying acute process cannot definitively be excluded. Skeletal structures are grossly intact. Impression: Diffuse chronic pleuroparenchymal changes (left greater than right) similar to prior examination. A subtle superimposed acute process cannot definitively be excluded. Electronically Signed by Marcelo Chapin MD 06/21/2019 03:21 A
[2019-06-21] MEDS ORDERED: PNEUMOCOCCAL VACCINE 0.5ML SYRINGE(90732) PNEUMOVAX 23 IM SCH (04:15)
[2019-06-21 08:37] LABS: BASO % 0.2 % (0.0-1.0); HEMATOCRIT 39.6 % (36.0-47.0); LYMPH # 1.7 10^3/uL (1.5-5.0); LYMPH % 14.9 % (24.0-44.0); MEAN CORPUSCULAR HEMOGLOBIN 29.4 pg (27.0-33.0); MEAN CORPUSCULAR HGB CONC 33.6 g/dl (32.0-36.5); MEAN CORPUSCULAR VOLUME 87.4 fl (80.0-96.0); MONO # 1.4 10^3/uL (0.0-0.8); MONO % 12.1 % (0.0-5.0); NEUTROPHILS # 8.1 10^3/uL (1.5-8.5); NEUTROPHILS % 72.2 % (36.0-66.0); RED BLOOD COUNT 4.53 10^6/uL (4.00-5.40); WHITE BLOOD COUNT 11.2 10^3/uL (4.0-10.0)
[2019-06-21 08:57] LABS: CALCIUM LEVEL 7.9 MG/DL (8.8-10.2); CREATININE FOR GFR 1.52 MG/DL (0.55-1.30); GLOMERULAR FILTRATION RATE 35.1 (>39); POTASSIUM SERUM 5.1 MEQ/L (3.5-5.1)
[2019-06-21 09:05] LABS: HEMOGLOBIN 13.3 g/dl (12.0-15.5); PLATELET COUNT, AUTOMATED 86 10^3/uL (150-450)
[2019-06-21] MEDS ORDERED: VANCOMYCIN ORAL SOL 250MG/5ML ORAL SYRINGE PO SCH (12:00)
--- NOTE | 2019-06-21 13:42 | IPNPDOC ---
Text Note Date of Service The patient was seen on 06/21/19. NOTE Subjective: -Sleepy, denies pain at this time. Vitals: See bleow - General: Ill appearing, NAD, AAOx3 - HEENT: NCAT, PERRLA, EOMI, dry MM - CVS: Tachycardic, +S1S2, regular rhythm - Lungs: Diminished sounds on left as previously noted, no wheezing / rales / rhonchi - Abdomen: Tender epigastrum, Soft, non-distended - Extremities: WWP, 2+ DP pulses, no lower extremity edema - Neuro: No focal motor or sensory deficit with normal CN 2-12 exam - Skin: No rashes, pale Labs: WBC 11.2 Hgb 13.3 platelets 221 lactate now downtrended to 2 na 140 K 5.1 Cr 1.52 Microbiology 06/20/19 Blood Culture, Received, Pending 06/20/19 Blood Culture, Received, Pending Cdiff - positive Plan Acute blood loss anemia / symptomatic anemia - most likely 2/2 upper GI bleed, given history of 4-5 episodes of coffee-ground like emesis, with history of non- bleeding gastric ulcers / hemorrhagic gastropathy requiring clipping / adenomatous polyps of the colon - Baseline Hgb(~10), dry on exam --> getting 4u pRBCs --> appropriately uptrended to 13.2 - c/w 2 large bore IV lines; c/w IV fluid resuscitation with normal saline - continue protonix gtt and Carafate - NPO, GI confirmed plan for EGD today C.diff infection: has a history of C.diff and stool testing showing current infection -start PO vanc 125Q6 for 10d Lactic acidosis likely 2/2 hypovolemia, improving - Will continue with IV fluid hydration Leukocytosis - Likely 2/2 C.diff infection - Currently, patient is afebrile - follow up blood cultures / sputum cultures - continue empiric coverage with Zosyn for intra-abdominal and PO vanc for c.diff infection Acute kidney injury on CKD3: likely prerenal in the setting of acute blood loss and dehydration - Patients baseline creatinine appears to run at 1.2 - Creatinine on admission of 1.83 - Avoid nephrotoxic medications - Continue with aggressive IV fluid hydration Bronchiectasis - Patient has as history of Pseudomonas colonization Chronic Iron deficiency anemia - See above Chronic thrombocytopenia - Platelet count appears to be within normal range at this point; however, could be falsely elevated because of dehydration - Will continue to monitor Gastrointestinal prophylaxis - continue Protonix gtt, to switch to BID PPI after endoscopy today DVT prophylaxis - continue TEDs/ Sequentials Dispo: medsurg VS,Fishbone, I+O VS, Fishbone, I+O Laboratory Tests 06/20/19 20:30 06/20/19 21:14 Vital Signs Date Time Temp Pulse Resp B/P (MAP) Pulse Ox O2 Delivery O2 Flow Rate FiO2 06/21/19 08:00 98.4 97 16 126/63 (84) 97 Room Air 06/21/19 04:00 2.0 I&O- Last 24 Hours up to 6 AM 06/21/19 06:00 Intake Total 3097 ml Output Total 200 ml Balance 2897 ml ALYSON INGRAM MD Jun 21, 2019 08:40
--- NOTE | 2019-06-21 15:13 | CR.PDOC ---
General Date of Consultation: Jun 21, 2019 Referring Provider: SHEKHAR OCHOA MD Attending Physician: ASHLEY RIVERA MD Consultation Primary physician/ hospitalist: -Dr. Ochoa Reason for consult: Coffee-ground emesis and drop in hemoglobin and hematocrit. HPI: 78 year-old female patient with bronchiectasis, CKD 3, chronic iron deficiency anemia, chronic thrombocytopenia, history of erosive esophagitis and gastric ulcer, presented to [facility] for nausea, vomiting and subsequently 4-5 episodes of coffee-ground emesis. Patient had similar episodes of vomiting blood and had multiple EGDs in the past showing severe reflux esophagitis with ulceration, last EGD in February [address] Pires (detailed reports below ) and was put on PPIs and Carafate, but patient reports she ran out of her medications one month ago. Patient reports lightheadedness and dizziness and baseline cough with shortness of breath from COPD. GI was consulted for coffee ground emesis. ON examination bedside, patient was complaining of moderate to severe abdominal pain, diffuse, with diarrhea for the past few days. Patient idd not have any further episodes of vomiting or blood in stools. Patient did noticed to have positive C. difficile test and started on oral vancomycin. Pertinent negative GI symptoms: Patient denies fever, sick contacts, recent travel, loss of appetite, early satiety or unintentional weight loss. Review of Systems: GI: as stated above CVS: No chest pain, No palpitations, No leg swelling. 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 Skin: No rash : No hematuria, No burning sensation of the urine ENT: No ear discharge/ pain, No dysphagia. Eyes: No photophobia. Home medications: reviewed. Antithrombotic agents - None Medical h/o: As above. Surgical h/o: None on abdomen. Social h/o: Alcohol- Denies , tobacco- second hand exposure to smoking. IVDA/ drugs- Denies Family h/o of GI cancers - None Prior Endoscopies: --- EGD in Dec 2017 -- done for RONEN - by Dr. Drew -- showed moderately severe esophagitis, no varices and One cratered gastric ulcer. which was followed up in repeat EGD in Mar 2018 - Noted resolution of both esophagitis and Gastric ulcer. No varices. -- EGD in November 2018 done by me for active bleeding -- noted to have grade D esophagitis, nonbleeding gastric ulcer. Recommended high dose PPI and repeat EGD in 3 months. -- EGD in [address] Pires -- done for GI bleeding as inpatient -- showed severe erosive esophagitis.. -- Last colonoscopy in by Dr. Drew for heme positive stool - showed 2 sessile polyps in sigmoid and ascending colon. Removed.. Diverticulosis in sigmoid colon. Recommended surveillance colonoscopy in 5 years. Prior GI evaluation: Following with Dr. Drew. Exam: Vitals: reviewed General: Alert and oriented x 3, not in distress HEENT: NO pallor, no icterus. Normal oropharynx, NO cervical lymph nodes. Chest: symmetric with bilateral clear air entry, CVS: S1, S2 heard, normal, no murmurs . Abdomen: non-distended, no surgical scars, soft, non-tender, no palpable masses, normal bowel sounds heard. Rectal exam: Patient refused / Deferred at this time in view of scheduled colonoscopy. Extremities: no pedal edema, pulses palpable. 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 Moves all extremities Skin: no rash. Labs: reviewed. CT abdomen - reviewed. Impression: - Acute onset hematemesis / coffee ground emesis with drop in hemoglobin and prior know history of severe esophagitis and gastric ulcer ( last EGD in February 2019), unclear if patient is taking the medications for servere GERD - DDx -- Likely persistent GERD vs PUD vs less likely MWT vs less likely AVMs. Unlikely varices. - Diffuse abdominal pain with diarrhea for past few days and Stool testing positive for C. difficile and DARLINE -- Likely severe C. difficile infection. Xray abdomen did not show toxic megacolon. 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 Recommendations: - Patient educated about the test results, possible differential diagnoses and All questions answered. - IV PPI 40 twice daily for now. - Due to prior severe esophagitis, also consider Sucralfate 1gm (liquid formulation) 3 times daily. - Due to renal dysfunction and C. difficile, patient would meet the criteria for severe C. difficile and also in view of abdominal pain, would need high dose of oral vancomycin for now. - Close monitoring of the abdominal exam and bowel movement, if any sign of ileus/ no bowel movements, then needs rectal vancomycin and ICU care and surgery evaluation. - Advance diet as tolerated for now. - Will monitor clinical course for now and if persistent hematemsis or melena or drop in hemoglobin levels, then will consider EGD with flexible sigmoidoscopy. - The procedure, indications, elevated risks (bleeding, perforation, infection, hypotension, respiratory depression, allergy, need for endotracheal intubation, surgery, colostomy, cardiac arrest, even ), benefits, limitations (e.g., missing a lesion), and all other alternatives (including no intervention) were explained to the patient who understood and agreed to hold off on the procedure for now. - Gi will follow. If any acute change in status please call GI. Plan of care discussed with patient and primary team. Patient verbalized understanding and agreed with the plan. Vital Signs/I&O Vital Signs Date Time Temp Pulse Resp B/P (MAP) Pulse Ox O2 Delivery O2 Flow Rate FiO2 06/21/19 14:41 98.8 108 18 127/69 (88) 95 Room Air 06/21/19 08:00 2.0 I&O- Last 24 Hours up to 6 AM 06/21/19 06:00 Intake Total 3097 ml Output Total 200 ml Balance 2897 ml Laboratory Data Labs 24H Laboratory Tests 2 06/20/19 20:30: Anion Gap 15, Glomerular Filtration Rate 28.3L, Lactic Acid Level 10.4*H, Calcium Level 8.8, Total Bilirubin 0.3, Direct Bilirubin 0.1, Aspartate Amino Transf (AST/SGOT) 42H, Alanine Aminotransferase (ALT/SGPT) 27, Alkaline Phosphatase 113, Total Creatine Kinase 73, Creatine Kinase MB < 1.0, Creatine Kinase MB Relative Index 1.37, Troponin I < 0.02, Total Protein 6.4, Albumin 2.2L, Albumin/Globulin Ratio 0.52L, Lipase 84 06/20/19 21:14: Immature Granulocyte % (Auto) 0.8, Neutrophils (%) (Auto) 74.5H, Lymphocytes (%) (Auto) 15.5L, Monocytes (%) (Auto) 8.6H, Eosinophils (%) (Auto) 0.4, Basophils (%) (Auto) 0.2, Neutrophils # (Auto) 10.5H, Lymphocytes # (Auto) 2.2, Monocytes # (Auto) 1.2H, Eosinophils # (Auto) 0.1, Basophils # (Auto) 0.0, Nucleated Red Blood Cells % (auto) 0.0, Prothrombin Time 17.3H, Prothromb Time International Ratio 1.44, Activated Partial Thromboplast Time 29.0 06/21/19 00:10: Methicillin-Resist S.aureus DNA PCR NOT DETECTED 06/21/19 02:54: Lactic Acid Level 3.2*H 06/21/19 08:11: Immature Granulocyte % (Auto) 0.6, Neutrophils (%) (Auto) 72.2H, Lymphocytes (%) (Auto) 14.9L, Monocytes (%) (Auto) 12.1H, Eosinophils (%) (Auto) 0.0, Basophils (%) (Auto) 0.2, Neutrophils # (Auto) 8.1, Lymphocytes # (Auto) 1.7, Monocytes # (Auto) 1.4H, Eosinophils # (Auto) 0.0, Basophils # (Auto) 0.0, Nucleated Red Blood Cells % (auto) 0.0, Immature Platelet Fraction 1.9, Anion Gap 6L, Glomerular Filtration Rate 35.1L, Lactic Acid Followup at 4 Hours 2.0, Calcium Level 7.9L, Magnesium Level 2.0 CBC/BMP Laboratory Tests 06/20/19 20:30 06/20/19 21:14 06/21/19 08:11 Microbiology Microbiology 06/21/19 Gastrointestinal Tract Panel (PCR) - Final, Complete Clostridium Difficile A/B 06/21/19 Gram Stain - Final, Resulted 06/21/19 Sputum Culture, Resulted Pending 06/20/19 Blood Culture, Received Pending 06/20/19 Blood Culture, Received Pending Allergies Coded Allergies: latanoprost (Verified Allergy, Severe, 12/05/18) levofloxacin (Verified Allergy, Severe, 12/05/18) bimatoprost (Verified Allergy, Intermediate, EYE REDNESS, 12/05/18) cephalexin (Verified Allergy, Intermediate, 12/05/18) dorzolamide (Verified Allergy, Intermediate, CONGESTED,COUGH, 12/05/18) timolol (Verified Allergy, Intermediate, CONGESTED,COUGH, 12/05/18) brimonidine (Verified Allergy, Unknown, 12/05/18) doxycycline (Verified Allergy, Unknown, 12/05/18) travoprost (Verified Adverse Reaction, Severe, EYE PAIN HEART RACING, 12/05/18) Sulfa (Sulfonamide Antibiotics) (Verified Adverse Reaction, Intermediate, GI ISSUES, 12/05/18) diclofenac (Verified Adverse Reaction, Intermediate, VOMITS, 12/05/18) moxifloxacin (Verified Adverse Reaction, Mild, DIARRHEA, 12/05/18) Home Medications Scheduled Ascorbic Acid (Vitamin C) 250 Mg Tab, 250 MG PO DAILY, (Reported) Calcium Carbonate/Vitamin D3 (Oyster Shell 500-Vit D3 200 Tb) 1 Tab Tab, 1 TAB PO DAILY, (Reported) Multivitamins (Thera M Plus Tablet) 1 Tab Tab, 1 TAB PO DAILY, (Reported) Pilocarpine HCl (Pilocarpine HCl) 1% 15ML Drops, 1 DROP OS QID, (Reported) Scheduled PRN Albuterol Sulf (Albuterol Sulfate) 2.5 Mg/3 Ml Nebu, 2.5 MG INH QID PRN for SHORTNESS OF BREATH, (Reported) ASHLEY RIVERA MD Jun 21, 2019 15:13
[2019-06-21] MEDS: VANCOMYCIN ORAL SOL 250MG/5ML ORAL SYRINGE PO SCH ×2 (19:00→23:59)
[2019-06-22] MEDS: PANTOPRAZOLE SODIUM 40 MG in D5W 50 ML IV SCH ×2 (00:15→05:13)
[2019-06-22] MEDS ORDERED: NS 500 ML IV ONE (00:30)
[2019-06-22 01:16] LABS: HEMATOCRIT 34.2 % (36.0-47.0); HEMOGLOBIN 11.4 g/dl (12.0-15.5); MEAN CORPUSCULAR HEMOGLOBIN 29.5 pg (27.0-33.0); MEAN CORPUSCULAR HGB CONC 33.3 g/dl (32.0-36.5); MEAN CORPUSCULAR VOLUME 88.4 fl (80.0-96.0); PLATELET COUNT, AUTOMATED 110 10^3/uL (150-450); RED BLOOD COUNT 3.87 10^6/uL (4.00-5.40); WHITE BLOOD COUNT 8.6 10^3/uL (4.0-10.0)
[2019-06-22 02:10] LABS: ALBUMIN 1.9 GM/DL (3.2-5.2); BILIRUBIN,TOTAL 1.3 MG/DL (0.2-1.0); CALCIUM LEVEL 7.6 MG/DL (8.8-10.2); CREATININE FOR GFR 1.5 MG/DL (0.55-1.30); GLOMERULAR FILTRATION RATE 35.7 (>39); POTASSIUM SERUM 4.2 MEQ/L (3.5-5.1); TOTAL PROTEIN 5.1 GM/DL (6.4-8.2)
--- NOTE | 2019-06-22 02:46 | REPVR ---
PROCEDURE INFORMATION: Exam: XR Chest, 1 View Exam date and time: 06/22/19 (2:29am) Age: 78 years old Clinical indication: Tachypnea TECHNIQUE: Imaging protocol: Portable CXR Views: 1 view COMPARISON: Portable CXR of 06/20/19 (10:43pm) FINDINGS: Comparison is made with a portable CXR done approx, 27 hours earlier. Chronic pleural and parenchymal disease again seen in the left lung, with volume loss and mediastinal shift to the left. Cystic airspaces are noted throughout the left hemithorax. Chronic interstitial disease remains in the right lung, most prominently in the RUL area. Right apical pleural thickening also noted. No pneumothorax. IMPRESSION: No significant interval change director the past 27 hours. No obvious acute pathology --- but difficult to exclude an acute left lung inflammatory process. Chronic pleural and parenchymal lung changes are again seen. Significant left lung volume loss. Electronically signed by: Elva Alvarez On 06/22/2019 02:46:34 AM
[2019-06-22 03:15] LABS: ABG BASE EXCESS -2.7 (-2.0-2.0); ABG HCO3 21.6 MEQ/L (22.0-26.0); ABG O2 SATURATION 93.4 % (95.0-99.0); ABG PARTIAL PRESSURE O2 67.1 mmHg (75.0-100.0); ABG STANDARD HCO3 22.1 MEQ/L (22.0-26.0); ABG TOTAL CO2 22.8 MEQ/L (23.0-31.0); ABG pH (ARTERIAL) 7.397 UNITS (7.350-7.450)
--- NOTE | 2019-06-22 03:44 | IPNPDOC ---
Text Note Date of Service The patient was seen on 06/22/19. NOTE Interval Update: Patient is a 78-year-old female with a PMHx of Bronchiectasis (w/ Pseudomonas colonization), CKD3, Chronic Iron deficiency anemia, Chronic thrombocytopenia, Hx of GI bleeds / Severe GERD / Erosive Esophagitis / Hemorrhagic gastropathy, Hx of C. diff, who presented to the hospital after experiencing nausea and vomiting on the afternoon of 06/20/2019. Patient was admitted to the hospitalist service for further evaluation of suspected upper GI bleeding and diarrhea. I was called at the bedside to evaluate patient for hypotension and chills that was reported by Florencia Ventura RN. There was a concern that the patient might be septic and actively GI bleeding. Evaluated patient several times this evening. Patient was seen at the bedside, had reported chills. However, appeared to be doing better than the night prior. As per nursing staff, patient has had bowel movements. The most recent of which was green in color and not dark. However, yesterday patient was noted to have dark colored stool. Patient has not experienced any further nausea or vomiting episodes since 06/20 1AM. Repeat lab work and imaging was ordered. - Patient's baseline hemoglobin is approximately 10 - Repeat hemoglobin is currently 11.4 - Hg of 13.3 (from 06/20 8AM - drawn 50 min after transfusion ended) - unlikely to represent any accurate reflection of Hg - Patient has received 4 units of PRBC and aggressive IV fluid hydration, the repeat hemoglobin of 13.3, is unlikely to represent an accurate number - Patient has not had any further episodes of nausea/vomiting of coffee-ground emesis and her most recent bowel movement was green in color - Patient is currently on medical management with Protonix drip and Carafate - Gastroenterology has evaluated the patient on 06/20 and has been scheduled for EGD on 06/21 Patient has evidence of C. difficile colitis - On appropriate treatment with Vancomycin PO - Patient is unlikely septic at this point; despite tachycardia and tachypnea that was reported patient appears to be clinically improved compared to the last ~36 hours Given patient's tachycardia and tachypnea her breathing was evaluated with a CXR and ABG. Patient does note appear to be in any respiratory distress and is speaking in full sentences. While in the room, patient's saturation fluctuated between 93 and 96% on room air. 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 No obvious acute pathology --- but difficult to exclude an acute left lung inflammatory process. Chronic pleural and parenchymal lung changes are again seen. Significant left lung volume loss. Remainder of lab work has revealed improvement of leukocytosis, improvement of thrombocytopenia, improvement of lactic acidosis, improvement of acute kidney injury. At this point, we will continue to monitor the patient for active GI bleeding. Repeat lab work will be completed at 5AM. Orders for oxygen therapy via nasal cannula to maintain saturations >94% have been placed. I personally discussed the above management with Florencia Ventura and Nursing supervisor cigar making hand. Have advised to report any changes in status; and will have low threshold to upgrade to PCU if required. VS,Fishbone, I+O VS, Fishbone, I+O Laboratory Tests 06/21/19 08:11 06/22/19 00:58 Vital Signs Date Time Temp Pulse Resp B/P (MAP) Pulse Ox O2 Delivery O2 Flow Rate FiO2 06/21/19 22:00 98.6 101 18 133/70 (91) 96 06/21/19 14:41 Room Air 06/21/19 08:00 2.0 I&O- Last 24 Hours up to 6 AM 06/22/19 06:00 Intake Total 2525 ml Output Total 225 ml Balance 2300 ml SHEKHAR CARRILLO MD Jun 22, 2019 03:16
[2019-06-22 03:56] VITALS: BP 94/40
[2019-06-22 05:00] VITALS: BP 104/48
[2019-06-22] MEDS: SUCRALFATE 1 GM TAB PO SCH ×3 (05:29→18:04)
[2019-06-22] MEDS: VANCOMYCIN ORAL SOL 250MG/5ML ORAL SYRINGE PO SCH ×3 (05:29→18:05)
[2019-06-22 05:47] LABS: BASO # 0.1 10^3/uL (0.0-0.2); BASO % 0.8 % (0.0-1.0); EOS # 0.2 10^3/uL (0.0-0.5); EOS % 2.3 % (0.0-3.0); HEMATOCRIT 32.6 % (36.0-47.0); HEMOGLOBIN 10.9 g/dl (12.0-15.5); LYMPH # 1.7 10^3/uL (1.5-5.0); LYMPH % 20.9 % (24.0-44.0); MEAN CORPUSCULAR HEMOGLOBIN 29.5 pg (27.0-33.0); MEAN CORPUSCULAR HGB CONC 33.4 g/dl (32.0-36.5); MEAN CORPUSCULAR VOLUME 88.3 fl (80.0-96.0); MONO % 12.4 % (0.0-5.0); PLATELET COUNT, AUTOMATED 100 10^3/uL (150-450); RED BLOOD COUNT 3.69 10^6/uL (4.00-5.40); WHITE BLOOD COUNT 7.9 10^3/uL (4.0-10.0)
[2019-06-22 06:00] VITALS: BP 122/60
[2019-06-22 06:08] LABS: CALCIUM LEVEL 7.3 MG/DL (8.8-10.2); CREATININE FOR GFR 1.5 MG/DL (0.55-1.30); GLOMERULAR FILTRATION RATE 35.7 (>39); MAGNESIUM LEVEL 1.8 MG/DL (1.8-2.4); POTASSIUM SERUM 3.6 MEQ/L (3.5-5.1)
[2019-06-22 06:30] VITALS: BP 100/50
[2019-06-22] MEDS ORDERED: D5W/0.45% SODIUM CHLORIDE 1,000 ML IV SCH (08:45)
[2019-06-22] MEDS ORDERED: POTASSIUM CHLORIDE 10 MEQ SR TABLET PO ONE (08:45)
[2019-06-22] MEDS ORDERED: MAG SULF 1GM/100ML (MAG RUN) 1 GM in IV 1 EA IV ONE (08:45)
[2019-06-22] MEDS: PIPERACILLIN/TAZOBACTAM SOD 2.25 GM in D5W MINI-BAG PLUS 50 ML IV SCH (08:48)
[2019-06-22] MEDS: PANTOPRAZOLE 40MG VIAL (C9113 PER 1) IV SCH ×2 (08:49→21:08)
[2019-06-22 14:00] VITALS: BP 102/60
--- NOTE | 2019-06-22 14:17 | IPNPDOC ---
Text Note Date of Service The patient was seen on 06/22/19. NOTE Subjective: -Much more awake today, asking when she will be discharged. -Overnight nursing was concerned about soft borderline BPs and sepsis vs. possibility of worsening bleeding but H/H was stable overnight, CXR wnl, ABG wnl without acid/base disturbances. Continued on high dose PO vanc for severe Cdiff and empiric zosyn given recent GI bleeding -had 14 BMs yesterday that have slowed down since midnight Vitals: See bleow - General: Ill appearing, NAD, AAOx3 - HEENT: NCAT, PERRLA, EOMI, dry MM - CVS: Tachycardic, +S1S2, regular rhythm - Lungs: Diminished sounds at bases, no wheezing / rales / rhonchi - Abdomen: Mild tender epigastrum, improved from yesterday, otherwise soft, non- distended - Extremities: WWP, 2+ DP pulses, no lower extremity edema - Neuro: No focal motor or sensory deficit with normal CN 2-12 exam - Skin: No rashes, pale Labs: WBC 7.9 Hgb 10.9 platelets 100 lactate now normalized na 146 K 3.6 Cr 1.5 Microbiology 06/20/19 Blood Culture, NGTD 06/20/19 Blood Culture, NGTD Cdiff - positive Plan Acute blood loss anemia / symptomatic anemia - most likely 2/2 upper GI bleed, given history of 4-5 episodes of coffee-ground like emesis, with history of non- bleeding gastric ulcers / hemorrhagic gastropathy requiring clipping / adenomatous polyps of the colon - Baseline Hgb(~10), dry on exam --> s/p 4u pRBCs --> stably at baseline (spurious hgb of ~13 was shortly after transfusion of 4 units) - c/w 2 large bore IV lines; c/w IV fluid resuscitation with normal saline - switch protonix gtt to IV BID and continue Carafate - Dr. Sánchez had placed her on clears and then full liquid diet and deferred endoscopy and recommending medical management with treatment of C.diff and restoring PPI and carafate that she was not taking for ~1 month. Overnight was made NPO, restart clear liquid diet - check PM CBC C.diff infection: has a history of C.diff and stool testing showing current infection with DARILNE and significant electrolyte losses and soft BPs, thus treated as severe C.diff -continue PO vanc 500Q6 for severe C.diff, day #2 -Switch from D51/2NS fluids to 1/2NS @ 100cc/hr now that she is on a clear liquid diet Lactic acidosis likely 2/2 hypovolemia and infection, resolved. - Will continue with IV fluid hydration at this time Leukocytosis - Likely 2/2 C.diff infection - Currently, patient is afebrile - follow up blood cultures / sputum cultures - discontinue empiric coverage with Zosyn for intra-abdominal, now that we established ongoing C.diff infection - continue PO vanc for c.diff infection Acute kidney injury on CKD3: likely prerenal in the setting of acute blood loss and dehydration - Patients baseline creatinine appears to run at 1.2 - Creatinine on admission of 1.83, improving - Avoid nephrotoxic medications - Continue with IV fluid hydration - replete lytes aggressively given ongoing diarrhea Bronchiectasis - Patient has as history of Pseudomonas colonization Chronic Iron deficiency anemia - See above Chronic thrombocytopenia - Platelet count appears to be within normal range at this point; however, could be falsely elevated because of dehydration - Will continue to monitor Gastrointestinal prophylaxis - discontinue Protonix gtt and switch to BID PPI DVT prophylaxis - continue TEDs/ Sequentials Dispo: medsurg VS,Mel, I+O VS, Mel, I+O Laboratory Tests 06/22/19 00:58 06/22/19 05:35 Vital Signs Date Time Temp Pulse Resp B/P (MAP) Pulse Ox O2 Delivery O2 Flow Rate FiO2 06/22/19 06:30 100/50 (67) 06/22/19 06:00 98.1 79 18 97 06/21/19 14:41 Room Air 06/21/19 08:00 2.0 I&O- Last 24 Hours up to 6 AM 06/22/19 05:59 Intake Total 4085 ml Output Total 225 ml Balance 3860 ml ALYSON INGRAM MD Jun 22, 2019 08:42
[2019-06-22] MEDS: NS 0.45% 1,000 ML IV SCH (14:26)
[2019-06-22 16:03] LABS: HEMATOCRIT 33.6 % (36.0-47.0); HEMOGLOBIN 10.9 g/dl (12.0-15.5); MEAN CORPUSCULAR VOLUME 91.8 fl (80.0-96.0); RED BLOOD COUNT 3.66 10^6/uL (4.00-5.40); WHITE BLOOD COUNT 7.3 10^3/uL (4.0-10.0)
[2019-06-22 16:04] LABS: MEAN CORPUSCULAR HEMOGLOBIN 29.8 pg (27.0-33.0); MEAN CORPUSCULAR HGB CONC 32.4 g/dl (32.0-36.5); PLATELET COUNT, AUTOMATED 103 10^3/uL (150-450)
[2019-06-22 22:00] VITALS: BP 104/67
[2019-06-23] MEDS: VANCOMYCIN ORAL SOL 250MG/5ML ORAL SYRINGE PO SCH ×5 (00:12→23:38)
[2019-06-23] MEDS: NS 0.45% 1,000 ML IV SCH ×3 (00:12→23:38)
[2019-06-23] MEDS: SUCRALFATE 1 GM TAB PO SCH ×5 (00:12→23:38)
[2019-06-23 06:00] VITALS: BP 101/66
[2019-06-23 06:30] LABS: BASO % 0.6 % (0.0-1.0); EOS # 0.4 10^3/uL (0.0-0.5); EOS % 6.3 % (0.0-3.0); HEMATOCRIT 33.1 % (36.0-47.0); HEMOGLOBIN 10.6 g/dl (12.0-15.5); LYMPH # 1.6 10^3/uL (1.5-5.0); LYMPH % 24.9 % (24.0-44.0); MEAN CORPUSCULAR HEMOGLOBIN 29.4 pg (27.0-33.0); MEAN CORPUSCULAR VOLUME 91.9 fl (80.0-96.0); MONO # 0.9 10^3/uL (0.0-0.8); MONO % 13.8 % (0.0-5.0); NEUTROPHILS # 3.4 10^3/uL (1.5-8.5); NEUTROPHILS % 54.1 % (36.0-66.0); WHITE BLOOD COUNT 6.2 10^3/uL (4.0-10.0)
[2019-06-23 06:48] LABS: CALCIUM LEVEL 7.2 MG/DL (8.8-10.2); CREATININE FOR GFR 1.17 MG/DL (0.55-1.30); GLOMERULAR FILTRATION RATE 47.5 (>39); POTASSIUM SERUM 3.3 MEQ/L (3.5-5.1)
[2019-06-23 07:17] LABS: PLATELET COUNT, AUTOMATED 94 10^3/uL (150-450)
[2019-06-23] MEDS: PANTOPRAZOLE 40MG TAB (PROTONIX) PO SCH ×2 (09:51→21:07)
[2019-06-23] MEDS ORDERED: POTASSIUM CHLORIDE 10 MEQ SR TABLET PO ONE (10:00)
--- NOTE | 2019-06-23 11:48 | IPNPDOC ---
Text Note Date of Service The patient was seen on 06/23/19. NOTE Subjective: -Doing ok this morning, no complaints -Continues to have significant diarrhea - 12 episodes yesterday, 3 episodes already today on day 3 of high dose PO vanc Vitals: See bleow - General: Ill appearing, NAD, AAOx3 - HEENT: NCAT, PERRLA, EOMI, dry MM - CVS: Tachycardic, +S1S2, regular rhythm - Lungs: Diminished sounds at bases, no wheezing / rales / rhonchi - Abdomen: Non tender abdomen this morning, otherwise soft, non-distended - Extremities: WWP, 2+ DP pulses, no lower extremity edema - Neuro: No focal motor or sensory deficit with normal CN 2-12 exam - Skin: No rashes, pale Labs: WBC6.2 Hgb 10.6 platelets 94 na 145 K 3.3 (repleted) Cr 1.17 Cdiff - positive Plan Acute blood loss anemia / symptomatic anemia - most likely 2/2 upper GI bleed, given history of 4-5 episodes of coffee-ground like emesis, with history of non- bleeding gastric ulcers and severe gastritis / hemorrhagic gastropathy requiring prior clipping / adenomatous polyps of the colon, with history of 1 month non compliance with PPI/sucralfate. - Baseline Hgb(~10), dry on exam --> s/p 4u pRBCs --> stably at baseline (spurious hgb of ~13 was shortly after transfusion of 4 units) - c/w 2 large bore IV lines; c/w IV fluid resuscitation with normal saline - switch IV protonix to PO BID and continue Carafate - Dr. Sánchez deferred endoscopy and recommended medical management with treatment of C.diff and restoring PPI and carafate that she was not taking for ~1 month. - Advance diet to full liquid this AM - daily CBC C.diff infection: has a history of C.diff and stool testing showing current infection with DARLINE and significant electrolyte losses and soft BPs, thus treated as severe C.diff - Continue PO vanc 500Q6 for severe C.diff, day #3, will discuss threshold for escalating tx with pharmacy - Continue 1/2NS @ 100cc/hr given ongoing severe diarrhea Lactic acidosis likely 2/2 hypovolemia and infection, resolved. - Will continue with IV fluid hydration at this time Leukocytosis - 2/2 severe C.diff infection, now resolved while on high dose PO vanc - had negative blood cultures - Was previously given empiric Zosyn for intra-abdominal that was discontinued after we established ongoing severe C.diff infection - continue high dose PO vanc for c.diff infection, day 3 Acute kidney injury on CKD3: prerenal in the setting of acute blood loss and dehydration, resolved with hydration - Creatinine on admission was 1.83, now normalized - Avoid nephrotoxic medications - Continue with IV fluid hydration - replete lytes aggressively given ongoing diarrhea Bronchiectasis - Patient has as history of Pseudomonas colonization Chronic Iron deficiency anemia - See above Chronic thrombocytopenia - Platelet count appears to be within her baseline - Will continue to monitor Gastrointestinal prophylaxis - discontinue IV PPI to PO BID DVT prophylaxis - continue TEDs/ Sequentials Dispo: medsurg, pending diarrhea improvement, ongoing PT/OT VS,Fishbone, I+O VS, Fishbone, I+O Laboratory Tests 06/22/19 15:44 06/23/19 05:32 06/23/19 05:33 Vital Signs Date Time Temp Pulse Resp B/P (MAP) Pulse Ox O2 Delivery O2 Flow Rate FiO2 06/23/19 06:00 97.4 88 19 101/66 (78) 94 Room Air 06/21/19 08:00 2.0 l I&O- Last 24 Hours up to 6 AM 06/23/19 06:00 Intake Total 4175 ml Balance 4175 ml ALYSON INGRAM MD Jun 23, 2019 09:11
[2019-06-23 14:24] VITALS: BP 102/58
[2019-06-23] MEDS: ALBUTEROL SULFATE 2.5 MG/0.5 ML INH NEB SOLN INH PRN (16:39)
[2019-06-23] MEDS: PILOCARPINE 1% OPHTH SOLN 15 ML OS SCH ×2 (18:32→21:07)
[2019-06-23 22:00] VITALS: BP 102/71
[2019-06-24 02:22] LABS: HEMATOCRIT 29.8 % (36.0-47.0); HEMOGLOBIN 9.6 g/dl (12.0-15.5)
[2019-06-24] MEDS: VANCOMYCIN ORAL SOL 250MG/5ML ORAL SYRINGE PO SCH ×3 (05:47→17:25)
[2019-06-24] MEDS: SUCRALFATE 1 GM TAB PO SCH ×3 (05:47→17:25)
[2019-06-24 06:00] VITALS: BP 107/63
[2019-06-24 06:06] LABS: BASO % 0.2 % (0.0-1.0); EOS # 0.4 10^3/uL (0.0-0.5); EOS % 7.4 % (0.0-3.0); HEMATOCRIT 28.1 % (36.0-47.0); HEMOGLOBIN 9.1 g/dl (12.0-15.5); LYMPH # 1.8 10^3/uL (1.5-5.0); LYMPH % 33.9 % (24.0-44.0); MEAN CORPUSCULAR HEMOGLOBIN 29.7 pg (27.0-33.0); MEAN CORPUSCULAR HGB CONC 32.4 g/dl (32.0-36.5); MEAN CORPUSCULAR VOLUME 91.8 fl (80.0-96.0); MONO # 0.6 10^3/uL (0.0-0.8); MONO % 12.2 % (0.0-5.0); NEUTROPHILS # 2.4 10^3/uL (1.5-8.5); NEUTROPHILS % 45.9 % (36.0-66.0); PLATELET COUNT, AUTOMATED 101 10^3/uL (150-450); RED BLOOD COUNT 3.06 10^6/uL (4.00-5.40); WHITE BLOOD COUNT 5.3 10^3/uL (4.0-10.0)
[2019-06-24 06:28] LABS: CALCIUM LEVEL 7.4 MG/DL (8.8-10.2); GLOMERULAR FILTRATION RATE 56.9 (>39); MAGNESIUM LEVEL 1.8 MG/DL (1.8-2.4); POTASSIUM SERUM 3.7 MEQ/L (3.5-5.1)
[2019-06-24] MEDS: PILOCARPINE 1% OPHTH SOLN 15 ML OS SCH ×4 (09:36→21:50)
[2019-06-24] MEDS: MULTIVITAMINS/MINERALS THERAP 1 TAB PO SCH (09:36)
[2019-06-24] MEDS: PANTOPRAZOLE 40MG VIAL (C9113 PER 1) IV SCH ×2 (09:36→21:50)
[2019-06-24] MEDS: CALCIUM/VITAMIN D 500 MG TAB PO SCH (09:36)
[2019-06-24] MEDS: ASCORBIC ACID 250 MG TAB PO SCH (09:36)
[2019-06-24] MEDS: NS 0.45% 1,000 ML IV SCH ×2 (09:37→16:15)
[2019-06-24] MEDS: ALBUTEROL SULFATE 2.5 MG/0.5 ML INH NEB SOLN INH PRN (09:49)
--- NOTE | 2019-06-24 12:14 | IPNPDOC ---
Text Note Date of Service The patient was seen on 06/24/19. NOTE Subjective: -Diarrhea persists, 9 episodes over the last 24h, otherwise no abdominal discomfort at this time -Tolerating full liquid diet without episodes of emesis Vitals: See below - General: Chronically ill appearing, thin, much more awake and alert this AM, NAD, AAOx3 - HEENT: NCAT, PERRLA, EOMI, dry MM - CVS: Tachycardic, +S1S2, regular rhythm - Lungs: Diminished bases posteriorly, no wheezing / rales / rhonchi - Abdomen: Non tender abdomen, otherwise soft, non-distended, normoactive sounds - Extremities: WWP, 2+ DP pulses, no lower extremity edema - Neuro: No focal motor or sensory deficit with normal CN 2-12 exam - Skin: No rashes, pale Labs: WBC 5.3 Hgb 9.1 platelets 101 na 141 K 3.7 Cr 1.0 Cdiff - positive Plan Acute blood loss anemia / symptomatic anemia - most likely 2/2 upper GI bleed, given history of 4-5 episodes of coffee-ground like emesis, with history of non- bleeding gastric ulcers and severe gastritis / hemorrhagic gastropathy requiring prior clipping / adenomatous polyps of the colon, with history of 1 month non compliance with PPI/sucralfate. Acute on chronic anemia with evidence of GIB - Baseline Hgb(~10), dry on exam --> s/p 4u pRBCs --> close to baseline of 10(spurious hgb of ~13 was shortly after transfusion of 4 units), will monitor or now - c/w 2 large bore IV lines; c/w IV fluid resuscitation with 1/2 normal saline - restore to IV protonix BID in the setting of slow H/H downtrend and continue Carafate q6H - Dr. Sánchez deferred endoscopy and recommended medical management with treatment of severe C.diff and restoring PPI and carafate that she was not taking for ~1 month. - Advance her diet to regular this AM - daily CBC C.diff infection: has a history of C.diff and stool testing showing current infection with DARLINE and significant electrolyte losses and soft BPs, thus treated as severe C.diff - Continue PO vanc 500Q6 for severe C.diff, day #4 - Continue 1/2NS @ 100cc/hr given ongoing severe diarrhea - Will investigate if her incontinent diarrhea is due to tenesmus vs. significant stool amount Lactic acidosis likely 2/2 hypovolemia and infection, resolved. - Will continue with IV fluid hydration at this time given persistent high GI losses Leukocytosis - 2/2 severe C.diff infection, now resolved while on high dose PO vanc - had negative blood cultures - Was previously given empiric Zosyn for intra-abdominal that was discontinued after we established ongoing severe C.diff infection - continue high dose PO vanc for c.diff infection, day 4 Acute kidney injury on CKD3: prerenal in the setting of acute blood loss and dehydration, resolved with hydration - Creatinine on admission was 1.83, now normalized - Avoid nephrotoxic medications - Continue with IV fluid hydration - replete lytes aggressively given ongoing diarrhea Bronchiectasis - Patient has as history of Pseudomonas colonization Chronic Iron deficiency anemia - See above Chronic thrombocytopenia - Platelet count appears to be within her baseline - Will continue to monitor Gastrointestinal prophylaxis - IV PPI BID DVT prophylaxis - continue TEDs/ Sequentials Dispo: medsurg, pending diarrhea improvement, ongoing PT/OT VS,Fishbone, I+O VS, Fishbone, I+O Laboratory Tests 06/24/19 02:15 06/24/19 05:26 Vital Signs Date Time Temp Pulse Resp B/P (MAP) Pulse Ox O2 Delivery O2 Flow Rate FiO2 06/24/19 06:00 97.8 99 16 107/63 (78) 95 Room Air 06/21/19 08:00 2.0 I&O- Last 24 Hours up to 6 AM 06/24/19 06:00 Intake Total 4220 ml Balance 4220 ml ALYSON INGRAM MD Jun 24, 2019 07:53
[2019-06-24 14:00] VITALS: BP 106/52
[2019-06-24 22:00] VITALS: BP 109/69
[2019-06-25] MEDS: VANCOMYCIN ORAL SOL 250MG/5ML ORAL SYRINGE PO SCH ×3 (00:27→12:05)
[2019-06-25] MEDS: SUCRALFATE 1 GM TAB PO SCH ×5 (00:27→23:56)
[2019-06-25] MEDS: NS 0.45% 1,000 ML IV SCH ×3 (00:27→21:09)
[2019-06-25 05:54] LABS: BASO % 0.4 % (0.0-1.0); EOS # 0.4 10^3/uL (0.0-0.5); EOS % 4.9 % (0.0-3.0); HEMATOCRIT 31.4 % (36.0-47.0); HEMOGLOBIN 10.1 g/dl (12.0-15.5); LYMPH # 1.7 10^3/uL (1.5-5.0); LYMPH % 18.5 % (24.0-44.0); MEAN CORPUSCULAR HEMOGLOBIN 30.1 pg (27.0-33.0); MEAN CORPUSCULAR HGB CONC 32.2 g/dl (32.0-36.5); MEAN CORPUSCULAR VOLUME 93.7 fl (80.0-96.0); MONO # 0.8 10^3/uL (0.0-0.8); MONO % 9.3 % (0.0-5.0); NEUTROPHILS % 66.2 % (36.0-66.0); PLATELET COUNT, AUTOMATED 126 10^3/uL (150-450); RED BLOOD COUNT 3.35 10^6/uL (4.00-5.40)
[2019-06-25 06:00] VITALS: BP 101/70
[2019-06-25 06:13] LABS: CALCIUM LEVEL 7.4 MG/DL (8.8-10.2); CREATININE FOR GFR 1.1 MG/DL (0.55-1.30); MAGNESIUM LEVEL 1.8 MG/DL (1.8-2.4); POTASSIUM SERUM 3.8 MEQ/L (3.5-5.1)
[2019-06-25] MEDS: ASCORBIC ACID 250 MG TAB PO SCH (08:51)
[2019-06-25] MEDS: CALCIUM/VITAMIN D 500 MG TAB PO SCH (08:51)
[2019-06-25] MEDS: PILOCARPINE 1% OPHTH SOLN 15 ML OS SCH ×4 (08:51→20:39)
[2019-06-25] MEDS: MULTIVITAMINS/MINERALS THERAP 1 TAB PO SCH (08:51)
[2019-06-25] MEDS: PANTOPRAZOLE 40MG VIAL (C9113 PER 1) IV SCH ×2 (08:56→20:39)
[2019-06-25] MEDS ORDERED: ACETAMINOPHEN 325 MG TAB PO PRN (11:15)
[2019-06-25 14:00] VITALS: BP 105/55
--- NOTE | 2019-06-25 15:46 | IPNPDOC ---
Text Note Date of Service The patient was seen on 06/25/19. NOTE Subjective: -Mild abdominal pain, reports that it is a 4 to 5/10 -Tolerating regular diet without episodes of emesis -Unfortunately her diarrhea persists with moderate volume loose to semi-formed voluminous stools Vitals: See below - General: Chronically ill appearing however looking much better, more awake, alert, conversational, NAD, AAOx3 - HEENT: NCAT, PERRLA, EOMI, dry MM - CVS: Tachycardic, +S1S2, regular rhythm - Lungs: Diminished bases posteriorly, no wheezing / rales / rhonchi - Abdomen:Mild tenderness throughout, otherwise soft, non-distended, normoactive sounds - Extremities: WWP, 2+ DP pulses, no lower extremity edema - Neuro: No focal motor or sensory deficit with normal CN 2-12 exam - Skin: No rashes, pale Labs: WBC 9 Hgb 10.1 platelets 126 na 148 K 3.8 Cr 1.1 Cdiff - positive Assessment: 78 yo W with a history of severe esophagitis and gastric ulcer, last EGD in February 2019, recently off PPI/sucralfate who presented with acute onset hematemesis/coffee ground emesis with noted in hemoglobin and noted diarrhea and now found to have C.diff colitis and stable after restarting PPI/sucralfate, s/p blood transfusions and starting high dose PO vanc for severe C.diff. Acute on chronic anemia with evidence of GIB - Baseline Hgb(~10), dry on exam --> s/p 4u pRBCs --> close to baseline of 10(spurious hgb of ~13 was shortly after transfusion of 4 units), will monitor or now - c/w 2 large bore IV lines; c/w IV fluid resuscitation with 1/2 normal saline - continue IV protonix BID and continue Carafate q6H - Dr. Sánchez deferred endoscopy and recommended medical management with treatment of severe C.diff and restoring PPI and carafate that she was not taking for ~1 month. - continue regular this AM - daily CBC, stable -Switching from PO vanc to fidaxomicin C.diff infection: has a history of C.diff and stool testing showing current in fection with DARLINE and significant electrolyte losses and soft BPs, thus treated as severe C.diff - Discontinue PO vanc 500Q6 for severe C.diff at day #5. -Switching to fidaxomicin 200mg BID for severe Cdiff resistant to vancomycin. Day #1 - Continue 1/2NS @ 100cc/hr given ongoing severe diarrhea - Will investigate if her incontinent diarrhea is due to tenesmus vs. significant stool amount today -PRN acetaminophen for the mild abdominal discomfort, will monitor Lactic acidosis likely 2/2 hypovolemia and infection, resolved. - Will continue with IV fluid hydration at this time given persistent high GI losses Leukocytosis - 2/2 severe C.diff infection, now resolved while on high dose PO vanc - had negative blood cultures - Was previously given empiric Zosyn for intra-abdominal that was discontinued after we established ongoing severe C.diff infection - Switching from PO vanc to fidaxomicin today Acute kidney injury on CKD3: prerenal in the setting of acute blood loss and dehydration, resolved with hydration. - Creatinine on admission was 1.83, now normalized - Avoid nephrotoxic medications - Continue with IV fluid hydration - replete lytes aggressively given ongoing diarrhea Bronchiectasis - Patient has as history of Pseudomonas colonization Chronic Iron deficiency anemia - See above Chronic thrombocytopenia - Platelet count appears to be within her baseline - Will continue to monitor Gastrointestinal prophylaxis - IV PPI BID DVT prophylaxis - continue TEDs/ Sequentials Dispo: medsurg, pending diarrhea improvement, switching from vanc to fidaxomicin today, ongoing PT/OT VS,Fishbone, I+O VS, Fishbone, I+O Laboratory Tests 06/25/19 05:13 Vital Signs Date Time Temp Pulse Resp B/P (MAP) Pulse Ox O2 Delivery O2 Flow Rate FiO2 06/25/19 06:00 97.7 83 16 101/70 (80) 96 Room Air 06/21/19 08:00 2.0 I&O- Last 24 Hours up to 6 AM 06/25/19 05:59 Intake Total 1260 ml Output Total 0 ml Balance 1260 ml ALYSON INGRAM MD Jun 25, 2019 09:18
[2019-06-25] MEDS: FIDAXOMICIN 200 MG TAB (DIFICID) PO SCH (17:19)
[2019-06-25 22:00] VITALS: BP 108/55
[2019-06-26] MEDS: SUCRALFATE 1 GM TAB PO SCH ×3 (05:45→17:22)
[2019-06-26 05:56] LABS: BASO % 0.3 % (0.0-1.0); EOS # 0.6 10^3/uL (0.0-0.5); HEMATOCRIT 29.2 % (36.0-47.0); HEMOGLOBIN 9.5 g/dl (12.0-15.5); LYMPH # 1.6 10^3/uL (1.5-5.0); LYMPH % 24.5 % (24.0-44.0); MEAN CORPUSCULAR HEMOGLOBIN 30.1 pg (27.0-33.0); MEAN CORPUSCULAR HGB CONC 32.5 g/dl (32.0-36.5); MEAN CORPUSCULAR VOLUME 92.4 fl (80.0-96.0); MONO # 0.8 10^3/uL (0.0-0.8); MONO % 11.7 % (0.0-5.0); NEUTROPHILS # 3.5 10^3/uL (1.5-8.5); NEUTROPHILS % 53.9 % (36.0-66.0); PLATELET COUNT, AUTOMATED 120 10^3/uL (150-450); RED BLOOD COUNT 3.16 10^6/uL (4.00-5.40); WHITE BLOOD COUNT 6.4 10^3/uL (4.0-10.0)
[2019-06-26 06:00] VITALS: BP 101/44
[2019-06-26 06:14] LABS: CALCIUM LEVEL 7.6 MG/DL (8.8-10.2); CREATININE FOR GFR 1.06 MG/DL (0.55-1.30); GLOMERULAR FILTRATION RATE 53.2 (>39); MAGNESIUM LEVEL 1.6 MG/DL (1.8-2.4); POTASSIUM SERUM 3.5 MEQ/L (3.5-5.1)
[2019-06-26] MEDS ORDERED: MAG SULF 1GM/100ML (MAG RUN) 1 GM in IV 1 EA IV ONE (09:00)
[2019-06-26] MEDS ORDERED: POTASSIUM CHLORIDE 10 MEQ SR TABLET PO ONE (09:00)
[2019-06-26] MEDS: CALCIUM/VITAMIN D 500 MG TAB PO SCH (09:16)
[2019-06-26] MEDS: FIDAXOMICIN 200 MG TAB (DIFICID) PO SCH ×2 (09:16→20:27)
[2019-06-26] MEDS: MULTIVITAMINS/MINERALS THERAP 1 TAB PO SCH (09:16)
[2019-06-26] MEDS: PANTOPRAZOLE 40MG VIAL (C9113 PER 1) IV SCH (09:17)
[2019-06-26] MEDS: PILOCARPINE 1% OPHTH SOLN 15 ML OS SCH ×4 (09:34→20:30)
[2019-06-26] MEDS: ASCORBIC ACID 250 MG TAB PO SCH (09:36)
--- NOTE | 2019-06-26 11:40 | IPNPDOC ---
Text Note Date of Service The patient was seen on 06/26/19. NOTE Subjective: -No abdominal complaints this AM, enquiring about timeline for home discharge, and we discussed that her diarrhea continues to be severe and I am waiting for it to improve to reduce the risk of her returning with dehydration -Tolerating regular diet without episodes of emesis -Unfortunately her diarrhea persists, was switched to fidaxomicin yesterday PM Vitals: See below - General: Chronically ill appearing, awake, alert, conversational, NAD, AAOx3 - HEENT: NCAT, PERRLA, EOMI, dry MM - CVS: Tachycardic, +S1S2, regular rhythm - Lungs: Diminished bases posteriorly, no wheezing / rales / rhonchi - Abdomen:Mild tenderness throughout, otherwise soft, non-distended, normoactive sounds - Extremities: WWP, 2+ DP pulses, no lower extremity edema - Neuro: No focal motor or sensory deficit with normal CN 2-12 exam - Skin: No rashes, pale Labs: WBC 6.4 Hgb 9.5 na 144 K 3.5 (repleted) mag 1.6 (repleted) Cr 1.06 Cdiff - positive Assessment: 78 yo W with a history of severe esophagitis and gastric ulcer, last EGD in February 2019, recently off PPI/sucralfate who presented with acute onset hematemesis/coffee ground emesis with noted in hemoglobin and noted diarrhea and now found to have C.diff colitis and stable after restarting PPI/sucralfate, s/p blood transfusions s/p 5d of high dose PO vanc with persistent diarrhea, and thus switched to fidaxomicin yesterday. Acute on chronic anemia with evidence of GIB - Baseline Hgb(~10), dry on exam --> s/p 4u pRBCs --> close to baseline of 10(spurious hgb of ~13 was shortly after transfusion of 4 units), will monitor or now - c/w 2 large bore IV lines; s/p IV fluid resuscitation with 1/2 normal saline, will stop fluids as she is becoming a bit fluid overloaded at this time - switch IV protonix BID to PO BID and continue Carafate q6H - Dr. Sánchez deferred endoscopy and recommended medical management with treatment of severe C.diff and restoring PPI and carafate that she was not taking for ~1 month. - daily CBC, stable - s/p 5d 500Q6 PO vanc, now on day 2 of fidaxomicin C.diff infection: has a history of C.diff and stool testing showing current infection with DARLINE and significant electrolyte losses and soft BPs, thus treated as severe C.diff - -s/p 5d 500Q6 PO vanc, now on day # 2 of fidaxomicin - Dicontinue 1/2NS @ 100cc/hr as she is starting to become slightly volume overloaded at this time - PRN acetaminophen for the mild abdominal discomfort, will monitor Lactic acidosis likely 2/2 hypovolemia and infection, resolved. - s/p IV fluid hydration Leukocytosis - 2/2 severe C.diff infection, now resolved while on high dose PO vanc - had negative blood cultures - Was previously given empiric Zosyn for intra-abdominal that was discontinued after we established ongoing severe C.diff infection - continue fidaxomicin today Acute kidney injury on CKD3: prerenal in the setting of acute blood loss and dehydration, resolved with hydration. - Creatinine on admission was 1.83, now normalized - Avoid nephrotoxic medications - s/p IV fluid hydration - replete lytes aggressively given ongoing diarrhea Bronchiectasis - Patient has as history of Pseudomonas colonization Chronic Iron deficiency anemia - See above Chronic thrombocytopenia - Platelet count appears to be within her baseline - Will continue to monitor Gastrointestinal prophylaxis - IV PPI BID DVT prophylaxis - continue TEDs/ Sequentials Dispo: medsurg, pending diarrhea improvement, now on fidaxomicin today, ongoing PT/OT and doing well VS,Fishbone, I+O VS, Fishbone, I+O Laboratory Tests 06/26/19 05:13 Vital Signs Date Time Temp Pulse Resp B/P (MAP) Pulse Ox O2 Delivery O2 Flow Rate FiO2 06/26/19 06:00 98.8 104 20 101/44 (63) 93 06/25/19 14:00 Room Air 06/21/19 08:00 2.0 I&O- Last 24 Hours up to 6 AM 06/26/19 06:00 Intake Total 1640 ml Balance 1640 ml ALYSON INGRAM MD Jun 26, 2019 08:57
[2019-06-26 14:00] VITALS: BP_SYST 102; BP_SYST 98; BP_DIAS 47; BP_DIAS 63
[2019-06-26] MEDS: PANTOPRAZOLE 40MG TAB (PROTONIX) PO SCH (20:27)
[2019-06-26 22:00] VITALS: BP_SYST 11; BP_SYST 111; BP_DIAS 60
[2019-06-27] MEDS: SUCRALFATE 1 GM TAB PO SCH ×3 (00:17→12:23)
[2019-06-27 06:00] VITALS: BP 112/62
[2019-06-27 06:11] LABS: BASO % 0.5 % (0.0-1.0); EOS # 0.5 10^3/uL (0.0-0.5); EOS % 5.9 % (0.0-3.0); HEMATOCRIT 29.3 % (36.0-47.0); HEMOGLOBIN 9.4 g/dl (12.0-15.5); LYMPH # 1.7 10^3/uL (1.5-5.0); LYMPH % 21.1 % (24.0-44.0); MEAN CORPUSCULAR HEMOGLOBIN 30.2 pg (27.0-33.0); MEAN CORPUSCULAR HGB CONC 32.1 g/dl (32.0-36.5); MEAN CORPUSCULAR VOLUME 94.2 fl (80.0-96.0); MONO % 12.1 % (0.0-5.0); NEUTROPHILS # 4.8 10^3/uL (1.5-8.5); NEUTROPHILS % 59.5 % (36.0-66.0); PLATELET COUNT, AUTOMATED 135 10^3/uL (150-450); RED BLOOD COUNT 3.11 10^6/uL (4.00-5.40)
[2019-06-27 06:50] LABS: CALCIUM LEVEL 7.7 MG/DL (8.8-10.2); CREATININE FOR GFR 1.1 MG/DL (0.55-1.30); MAGNESIUM LEVEL 1.7 MG/DL (1.8-2.4); POTASSIUM SERUM 4.4 MEQ/L (3.5-5.1)
[2019-06-27] MEDS: CALCIUM/VITAMIN D 500 MG TAB PO SCH (08:04)
[2019-06-27] MEDS: MULTIVITAMINS/MINERALS THERAP 1 TAB PO SCH (08:04)
[2019-06-27] MEDS: FIDAXOMICIN 200 MG TAB (DIFICID) PO SCH (08:05)
[2019-06-27] MEDS: ASCORBIC ACID 250 MG TAB PO SCH (08:05)
[2019-06-27] MEDS: PILOCARPINE 1% OPHTH SOLN 15 ML OS SCH ×2 (08:05→12:23)
[2019-06-27] MEDS: PANTOPRAZOLE 40MG TAB (PROTONIX) PO SCH (08:05)
[2019-06-27] MEDS ORDERED: PANT40TA3 PO (09:09)
[2019-06-27] MEDS ORDERED: DIFI200T PO (09:09)
[2019-06-27] MEDS ORDERED: SUCR1TA PO (09:09)
--- NOTE | 2019-06-27 12:14 | DS.PDOC ---
Discharge Summary General Date of Admission Jun 20, 2019 at 22:25 Date of Discharge 06/27/2019 Attending Physician: ALYSON INGRAM MD Specialist/Consultants Involve: ASHLEY RIVERA MD Discharge Summary PROCEDURES PERFORMED DURING STAY: None ADMITTING DIAGNOSES: 1. GIB 2. Acute blood loss anemia DISCHARGE DIAGNOSES: 1. C.diff colitis 2. Acute upper GIB with acute blood loss anemia 3. Severe GERD with Erosive Esophagitis and Hemorrhagic gastropathy 4. Bronchiectasis (w/ Pseudomonas colonization) 5. DARLINE on CKD3 6. Chronic Iron deficiency anemia 7. Chronic thrombocytopenia COMPLICATIONS/CHIEF COMPLAINT: Acute Blood Loss Anemia,Gi Hemorrhage. HISTORY OF PRESENT ILLNESS: 78 year-old female patient with bronchiectasis, CKD 3, chronic iron deficiency anemia, chronic thrombocytopenia, history of erosive esophagitis and gastric ulcer, presented to [facility] for nausea, vomiting and subsequently 4-5 episodes of coffee-ground emesis. HOSPITAL COURSE: Ms. Miller was admitted to medicine where she received blood transfusion, started on a protonix and started on sucralfate and GI was consulted. She also had copious diarrhea that was initially melenic and later non bloody and on evaluation was found to have C.diff colitis. Meanwhile, GI was consulted for evaluation of her coffee ground emesis and given the history of prior vomiting b lood and previous multiple EGDs in the past showing severe reflux esophagitis with ulceration, last EGD in [address] Pires and information coming to light that she was not taking her PPIs and Carafate as prescribed for 1 month, GI decided to defer further scoping and treating her medically with IV BID PPI, carafate and treating her C.diff colitis. She was started on high dose oral vanc for 5d for severe C.diff that was c/b resistance with continued copious diarrhea that remitted after being switched to fidaxomicin. She is now being discharged home to follow up with her PCP and complete her 10d course of fidaxomicin while restoring BID protonix and q6h sucralfate. Of note, she also had an DARLINE on CKD at presentation that resolved with hydration. DISCHARGE MEDICATIONS: Please see below. ALLERGIES: Please see below. PHYSICAL EXAMINATION ON DISCHARGE: VITAL SIGNS: Please see below. - General: Chronically ill appearing however appearing much better and energetic, eager to get home, awake, alert, conversational, NAD, AAOx3 - HEENT: NCAT, PERRLA, EOMI, dry MM - CVS: Tachycardic, +S1S2, regular rhythm - Lungs: Diminished bases posteriorly, no wheezing / rales / rhonchi - Abdomen: Normoactive bowel sounds, nontender, otherwise soft, non-distended - Extremities: WWP, 2+ DP pulses, no lower extremity edema - Neuro: No focal motor or sensory deficit with normal CN 2-12 exam - Skin: No rashes, pale LABORATORY DATA: Please see below. IMAGING: CXR at admission: Diffuse chronic pleuroparenchymal changes (left greater than right) similar to prior examination. A subtle superimposed acute process cannot definitively be excluded. AXR: 1. Opacity at the left lung base. The findings may reflect chronic cystic changes. Follow-up chest films and comparison to prior studies may be of value. 2. No evidence of bowel obstruction. 3. Surgical clips in the left upper quadrant of the abdomen. 4. Potential gallstones. 5. Potential left renal stones. 6. Chronic osseous changes. 06/21 CXR: No significant interval change analyst the past 27 hours. No obvious acute pathology --- but difficult to exclude an acute left lung inflammatory process. Chronic pleural and parenchymal lung changes are again seen. Significant left lung volume loss. PROGNOSIS: [Good with medication compliance ACTIVITY: As tolerated. DIET: Regular DISCHARGE PLAN: Home to complete fidaxomicin 10d course, as well as resume protonix and carafate with close PCP and GI follow up DISPOSITION: Home DISCHARGE INSTRUCTIONS: 1. Home to complete fidaxomicin 10d course, as well as resume protonix and carafate with close PCP and GI follow up ITEMS TO FOLLOWUP ON ON OUTPATIENT: 1. C.diff colitis 2. Severe gastritis with history of recent GIB DISCHARGE CONDITION: Stable. TIME SPENT ON DISCHARGE: 52 minutes. Vital Signs/I&Os Vital Signs Date Time Temp Pulse Resp B/P (MAP) Pulse Ox O2 Delivery O2 Flow Rate FiO2 06/27/19 06:00 97.6 64 18 112/62 (79) 95 06/25/19 14:00 Room Air 06/21/19 08:00 2.0 I&O- Last 24 Hours up to 6 AM 06/27/19 06:00 Intake Total 2445 ml Output Total 2 ml Balance 2443 ml Laboratory Data Labs 24H Laboratory Tests 2 06/27/19 05:18: Immature Granulocyte % (Auto) 0.9, Neutrophils (%) (Auto) 59.5, Lymphocytes (%) (Auto) 21.1L, Monocytes (%) (Auto) 12.1H, Eosinophils (%) (Auto) 5.9H, Basophils (%) (Auto) 0.5, Neutrophils # (Auto) 4.8, Lymphocytes # (Auto) 1.7, Monocytes # (Auto) 1.0H, Eosinophils # (Auto) 0.5, Basophils # (Auto) 0.0, Nucleated Red Blood Cells % (auto) 0.0, Anion Gap 5L, Glomerular Filtration Rate 51.0, Calcium Level 7.7L, Magnesium Level 1.7L CBC/BMP Laboratory Tests 06/27/19 05:18 Microbiology Microbiology 06/22/19 Blood Culture - Final, Complete NO GROWTH AFTER 5 DAYS 06/22/19 Blood Culture - Final, Complete NO GROWTH AFTER 5 DAYS 06/21/19 Gastrointestinal Tract Panel (PCR) - Final, Complete Clostridium Difficile A/B 06/21/19 Gram Stain - Final, Complete 06/21/19 Sputum Culture - Final, Complete Pseudomonas Aeruginosa 06/20/19 Blood Culture - Final, Complete NO GROWTH AFTER 5 DAYS 06/20/19 Blood Culture - Final, Complete NO GROWTH AFTER 5 DAYS Discharge Medications Scheduled Ascorbic Acid (Vitamin C) 250 Mg Tab, 250 MG PO DAILY, (Reported) Calcium Carbonate/Vitamin D3 (Oyster Shell 500-Vit D3 200 Tb) 1 Tab Tab, 1 TAB PO DAILY, (Reported) Fidaxomicin (Dificid) 200 Mg Tablet, 200 MG PO BID Multivitamins (Thera M Plus Tablet) 1 Tab Tab, 1 TAB PO DAILY, (Reported) Pantoprazole Sodium (Pantoprazole Sodium) 40 Mg Tablet.dr, 40 MG PO BID Pilocarpine HCl (Pilocarpine HCl) 1% 15ML Drops, 1 DROP OS QID, (Reported) Sucralfate (Sucralfate) 1 Gm Tablet, 1 GM PO Q6H Scheduled PRN Albuterol Sulf (Albuterol Sulfate) 2.5 Mg/3 Ml Nebu, 2.5 MG INH QID PRN for SHORTNESS OF BREATH, (Reported) Allergies Coded Allergies: latanoprost (Verified Allergy, Severe, 12/05/18) levofloxacin (Verified Allergy, Severe, 12/05/18) bimatoprost (Verified Allergy, Intermediate, EYE REDNESS, 12/05/18) cephalexin (Verified Allergy, Intermediate, 12/05/18) dorzolamide (Verified Allergy, Intermediate, CONGESTED,COUGH, 12/05/18) timolol (Verified Allergy, Intermediate, CONGESTED,COUGH, 12/05/18) brimonidine (Verified Allergy, Unknown, 12/05/18) doxycycline (Verified Allergy, Unknown, 12/05/18) travoprost (Verified Adverse Reaction, Severe, EYE PAIN HEART RACING, 12/05/18) Sulfa (Sulfonamide Antibiotics) (Verified Adverse Reaction, Intermediate, GI ISSUES, 12/05/18) diclofenac (Verified Adverse Reaction, Intermediate, VOMITS, 12/05/18) moxifloxacin (Verified Adverse Reaction, Mild, DIARRHEA, 12/05/18) ALYSON INGRAM MD Jun 27, 2019 09:26
== END 2019-06-27 13:22 | disposition home health service (06) | DRG 372 ==
LOC: M ED 20:05 → M ED INP 22:25 → ENRESERV 22:50 → M RR INP 23:30 → M MSPAV 06-21 14:37
PROVIDERS: ADMIT Internal Medicine; ATTEND Internal Medicine
PROC: 30233N1 Transfusion of Nonautologous Red Blood Cells into Peripheral Vein, Percutaneous Approach (ICD-10-PCS; principal; 2019-06-20)
DX: A04.71 Enterocolitis due to Clostridium difficile, recurrent (principal); K92.2 Gastrointestinal hemorrhage, unspecified; E87.2 Acidosis; N17.9 Acute kidney failure, unspecified; D62 Acute posthemorrhagic anemia; N18.3 Chronic kidney disease, stage 3 (moderate); D50.9 Iron deficiency anemia, unspecified; D69.6 Thrombocytopenia, unspecified; K21.0 Gastro-esophageal reflux disease with esophagitis; J47.9 Bronchiectasis, uncomplicated; Z79.899 Other long term (current) drug therapy; Z88.1 Allergy status to other antibiotic agents; Z88.2 Allergy status to sulfonamides; Z88.8 Allergy status to other drugs, medicaments and biological substances; Z98.41 Cataract extraction status, right eye; Z98.42 Cataract extraction status, left eye; Z86.010 Personal history of colon polyps

== ENCOUNTER 2019-07-20 13:40 | Inpatient (IN) | payer MEDICARE ==
[~2019-07-20] VITALS: Ht 152.4 cm; Wt 50.0 kg
[~2019-07-20 13:40] MED LIST changes: +DIFI200T PO; +SUCR1TA PO
[2019-07-20] MEDS ORDERED: FUROSEMIDE 40MG/4ML VIAL (J1940) IV ONE (14:30)
[2019-07-20 15:22] LABS: BASO % 0.4 % (0.0-1.0); EOS # 0.4 10^3/uL (0.0-0.5); EOS % 5.6 % (0.0-3.0); HEMATOCRIT 30.4 % (36.0-47.0); HEMOGLOBIN 9.4 g/dl (12.0-15.5); LYMPH # 1.5 10^3/uL (1.5-5.0); LYMPH % 18.6 % (24.0-44.0); MEAN CORPUSCULAR HEMOGLOBIN 29.1 pg (27.0-33.0); MEAN CORPUSCULAR HGB CONC 30.9 g/dl (32.0-36.5); MEAN CORPUSCULAR VOLUME 94.1 fl (80.0-96.0); MONO # 0.9 10^3/uL (0.0-0.8); NEUTROPHILS # 5.1 10^3/uL (1.5-8.5); PLATELET COUNT, AUTOMATED 188 10^3/uL (150-450); RED BLOOD COUNT 3.23 10^6/uL (4.00-5.40); WHITE BLOOD COUNT 7.9 10^3/uL (4.0-10.0)
[2019-07-20 15:33] LABS: INR 1.34; PROTHROMBIN TIME 16.3 SECONDS (11.8-14.0)
--- NOTE | 2019-07-20 15:36 | REP ---
REASON: Abdominal distention. Latest prior for comparison is 03/02/2019, also without contrast. The lack of intravenous contrast decreases the sensitivity of the exam. Advanced chronic lung field changes are seen in the lung bases, status quo. Since the last examination, a large degree of ascites has developed. Once again, there is a micronodular surface to the liver and there is an abnormal caudate to left lobe ratio. There is cholelithiasis within a contracted gallbladder. The spleen and pancreas are unchanged in appearance. Once again, there is slight haziness throughout the peripancreatic mesentery. There is no change in appearance of the adrenal glands or kidneys. Note is again made of bilateral nonobstructing nephroliths. There is no significant change in appearance of the abdominal aorta or para-aortic regions. Nonenlarged para-aortic lymph nodes are noted, status quo. There is no evidence of free intraperitoneal air. There is a large hiatal hernia, status quo. There is evidence of diverticulosis throughout the colon, status quo. There is no evidence of intestinal obstruction. CT PELVIS: There is a large amount of free pelvic fluid. There is sigmoid colon diverticulosis. There is no evidence of a pelvic mass or adenopathy. Bone window technique throughout the examination shows chronic changes, status quo. IMPRESSION: Since the last examination, a large degree of ascites has developed. There are changes seen involving the liver, highly suspicious for cirrhosis, correlate clinically. Chronic changes seen involving the pancreas and kidneys, as described above and previously. Concomitant pancreatitis should be clinically evaluated for. Other chronic changes and findings, as described above. Electronically Signed by Dayday Casanova DO 07/20/2019 03:48 P
--- NOTE | 2019-07-20 15:46 | REP ---
CT CHEST WITHOUT IV CONTRAST: CT chest performed without IV contrast. Sagittal and coronal reconstruction images are performed. Comparison is made with a prior study of 03/02/2019. Extensive cystic changes are seen throughout the left lung unchanged. Bronchiectasis in the right middle and lower lobes centrally is unchanged. There is diffuse moderate fibrosis throughout the right lung, more so peripherally. This appears unchanged. There is no new infiltrate identified in the right lung. There is shift of the heart and mediastinal structures to the left with volume loss of the left hemithorax. The heart does not appear to be significantly enlarged. There is no pericardial effusion. There appears to be subcarinal adenopathy unchanged. There is a large hiatal hernia. There are degenerative changes of the spine. There is upper abdominal ascites noted. IMPRESSION: Stable chronic changes of the chest with no evidence of acute infiltrate. Electronically Signed by Vitor Machado MD 07/20/2019 04:10 P
--- NOTE | 2019-07-20 15:47 | ECGEPIP ---
[facility] - ED Test Date: 2019-07-20 Pat Name: MONA BAH Department: Room: - Gender: Female [employer] Operator: queta WOOD: [id number] Requested By: NELE WHALEN Order Number: [id number] Reading MD: Vicki Davila Measurements Intervals [place] Rate: 104 P: 99 [place]: 162 QRS: 72 QRSD: 90 T: 67 QT: 331 QTc: 436 Interpretive Statements SINUS TACHYCARDIA WITH OCCASIONAL VENTRICULAR PREMATURE COMPLEXES ABNORMAL RHYTHM ECG BASELINE WANDERING MAY AFFECT READING BASELINE ARTIFACT MAY AFFECT READING NONSPECIFIC ST T WAVE CHANGES CW 06/20/[address] T WAVE CHANGES Electronically Signed on 07-20-2019 15:46:58 EDT by Vicki Davila
[2019-07-20 15:57] LABS: ALBUMIN 2.4 GM/DL (3.2-5.2); ALT/SGPT 23 U/L (12-78); BILIRUBIN,DIRECT 0.2 MG/DL (0.0-0.2); BILIRUBIN,TOTAL 0.3 MG/DL (0.2-1.0); BLOOD UREA NITROGEN 14 MG/DL (7-18); CALCIUM LEVEL 8.2 MG/DL (8.8-10.2); CARBON DIOXIDE LEVEL 26 MEQ/L (21-32); CHLORIDE LEVEL 109 MEQ/L (98-107); CPK CREATINE PHOSPHOKINASE 90 U/L (26-192); CREATININE FOR GFR 1.52 MG/DL (0.55-1.30); GLOMERULAR FILTRATION RATE 35.1 (>39); GLUCOSE, FASTING 117 MG/DL (70-100); LIPASE 26 U/L (73-393); MB/CK RELATIVE INDEX 2.22 (< OR =4); SODIUM LEVEL 141 MEQ/L (136-145); TOTAL PROTEIN 6.9 GM/DL (6.4-8.2); TROPONIN I < 0.02 NG/ML (< 0.10)
--- NOTE | 2019-07-20 16:57 | REP ---
Duplex extremity venous ultrasound: Bilateral lower extremity. History: Edema. Rule out DVT. Findings: The deep veins are anechoic and fully compressible from the groin to the popliteal fossa in the left and right lower extremity. Color flow imaging is homogeneous. Spectral Doppler interrogation demonstrates intact respiratory variation in flow and normal manual augmentation of flow. There is no evidence of deep vein thrombosis. Impression: Negative bilateral lower extremity duplex venous ultrasound. No evidence of deep vein thrombosis. Electronically Signed by Milan Sullivan MD 07/20/2019 04:49 P
[2019-07-20] MEDS ORDERED: PANT-23 PO (17:18)
[2019-07-20] MEDS ORDERED: SUCR1TAB56 PO (17:19)
--- NOTE | 2019-07-20 18:49 | HPEPDOC ---
[facility] Medical History & Physical Date of Admission July 20, 2019 Date of Service: July 20, 2019 Primary Care Physician: MOHINI SHELTON MD Attending Physician: MARY FROST MD History and Physical CHIEF COMPLAINT: Abdominal discomfort and leg swelling HISTORY OF PRESENT ILLNESS: Ramon is a 78-year-old female with PMHx of CKD III, bronchiectasis (prior documented Pseudomonas colonization), chronic thrombocytopenia, chronic iron deficiency anemia, history of GI bleeds with severe GERD, erosive esophagitis with ulceration, and history of C. difficile colitis, who presented to the ED from home after being told to do so by her PCP. Patient was recently admitted in the last week of May 2019 (06/19-06/26) to [facility] for acute upper GI bleed with acute blood loss anemia and subsequent contraction of C. difficile colitis during her inpatient stay. Upon discharge, patient had [facility] home health ordered. On her home health visit today, she reports her blood pressure was low and the home health nurse contacted her PCP. Also, since the time of her discharge last month, she complains of progressively worsening lower extremity edema with recent abdominal discomfort and bloating. On presentation today, she also endorsed accompanying mild central chest pressure, overlying her sternum In the ED, she was found to have her chronic normocytic anemia, acute DARLINE (sCr 1.52; bl 1.1-1.2) on CKD III (gfr 33%), elevated alkaline phosphatase (119), low albumin (2.4), and an UTI. Imaging showed a significant amount of ascites that has worsened with changes of the liver suspicious of cirrhosis; as well as bronchiectasis of the right middle and lower lobes with significant cystic changes throughout the entire left lung. 8. Bilateral duplex lower extremity venous ultrasound showed no evidence of deep vein thrombosis. Patient was given a one-time IV 40 mg furosemide administration. Patient was subsequently admitted under the care of the hospitalist service for fluid overload and further workup as we monitor her fluid status moving forward. PAST MEDICAL HISTORY: C. difficile colitis, May 2019 Acute upper GI bleed with acute blood loss anemia, May 2019; history of GI bleeds with severe GERD and erosive esophagitis with ulceration Bronchiectasis with prior colonization by Pseudomonas Chronic thrombocytopenia Chronic anemia Chronic kidney disease, stage III PAST SURGICAL HISTORY: Bilateral cataract surgery SOCIAL HISTORY: , lives with . Mother of 5 children a couple of which live nearby in the [place] area. Patient has worked recently as an employee at [employer]. She denies any recent extensive travel or exposure to sick contacts. She denies current or former use of tobacco products, alcohol, or illicit drugs FAMILY HISTORY: Mother: History of colon cancer ALLERGIES: Please see below. REVIEW OF SYSTEMS: CONSTITUTIONAL: Denies recent fever, chills, night sweats HEENT:. Denies vision changes, hearing changes, dysphagia or odynophagia. CARDIOVASCULAR: Endorses mild chest pressure overlying sternum. Denies chest pain or palpitations RESPIRATORY: Endorses productive cough but is unable to expectorate phlegm. Denies feeling short of breath or pleuritic chest pain. GASTROINTESTINAL: Endorses abdominal discomfort and bloating. Denies nausea, vomiting, recent diarrhea, or blood in stool GENITOURINARY:. Denies dysuria or hematuria. HOME MEDICATIONS: Please see below. PHYSICAL EXAMINATION: VITAL SIGNS: Temperature 99. 5, pulse 117, respiratory rate on a 2, blood pressure 132/61, pulse oximetry 99% on room air. GENERAL APPEARANCE: Pleasant elderly female who appears in mild discomfort. Alert and oriented 3. HEENT: Normocephalic, atraumatic. Wearing eyeglasses. Pupils are not round bilaterally. They are equal and reactive to light and accommodation. Mild conjunctival pallor. Noninjected, anicteric sclera. Upper dentures in place with no lower teeth. No pharyngeal erythema or exudate. MMM. Elevated JVP with +he patojugular reflex. CARDIOVASCULAR: Tachycardic rate, regular rhythm. There was one PVC visualized o n monitoring. +S1, S2. Capillary refill 23 seconds. 2+ radial pulses bilaterally. LUNGS: Audible "wet" sounding lungs from across ED room. Diffuse bilateral crackles posteriorly with mildly diminished tidal volume and some end expiratory wheeze in the right lung base. Symmetric chest expansion. Speaking full sentences. Breathing room air. ABDOMEN: Distended with tenderness of the right upper quadrant and guarding. No rigidity. Normoactive bowel sounds heard throughout. No significant fluid wave appreciated. MUSCULOSKELETAL: 5/5 muscle strength testing, UE and LE b/l EXTREMITIES: 3+ bilateral pitting edema with bilateral pitting pedal edema. Hands and feet are cool to the touch. No calf tenderness. NEUROLOGICAL: Awake, alert and oriented 3. No focal neurologic deficits appreciated. Non-dysarthric speech. Responded properly to questions and commands. PSYCHIATRIC: Mood and affect appear appropriate. LABORATORY DATA: Please see below. IMAGING: CT abdomen and pelvis without contrast, 07/20/19: Impression Since the last examination, a large degree of ascites has developed. There are changes seen involving the liver, highly suspicious for cirrhosis, correlate clinically. Chronic changes seen involving the pancreas and kidneys, as described below and previously. Concomitant pancreatitis should be clinically evaluated for. Other chronic changes and findings, as described below. The lack of intravenous contrast decreases the sensitivity of the exam. Advanced chronic lung field changes are seen in the lung bases, status quo. Since the last examination, a l arge degree of ascites has developed. Once again, there is a micronodular surface to the liver and there is an abnormal caudate to left lobe ratio. There is cholelithiasis within a contracted gallbladder. The spleen and pancreas are unchanged in appearance. Once again, there is slight haziness throughout the peripancreatic mesentery. There is no change in appearance of the adrenal glands or kidneys. Note is again made of bilateral nonobstructing nephroliths. There is no significant change in appearance of the abdominal aorta or para-aortic regions. Nonenlarged para-aortic lymph nodes are noted, status quo. There is no evidence of free intraperitoneal air. There is a large hiatal hernia, status quo. There is evidence of diverticulosis throughout the colon, status quo. There is no evidence of intestinal obstruction. CT PELVIS: There is a large amount of free pelvic fluid. There is sigmoid colon diverticulosis. There is no evidence of a pelvic mass or adenopathy. Bone window technique throughout the examination shows chronic changes, status quo. CT chest without IV contrast, 07/20/19: Impression Stable chronic changes of the chest with no evidence of acute infiltrate. Extensive cystic changes are seen throughout the left lung unchanged. Bronchiectasis in the right middle and lower lobes centrally is unchanged. There is diffuse moderate fibrosis throughout the right lung, more so peripherally. This appears unchanged. There is no new infiltrate identified in the right lung. There is shift of the heart and mediastinal structures to the left with volume loss of the left hemithorax. The heart does not appear to be significantly enlarged. There is no pericardial effusion. There appears to be subcarinal adenopathy unchanged. There is a large hiatal hernia. There are degenerative changes of the spine. There is upper abdominal ascites noted. Duplex venous lower bilateral lower extremity ultrasound, 07/20/19: Impression negative bilateral lower extremity duplex venous ultrasound. No evidence of deep vein thrombosis. MICROBIOLOGY: Please see below. ASSESSMENT & PLAN: This is a 78yo female w/ h/o GI bleeds (most recently upper GIB last mo)/severe GERD/erosive esophagitis with ulceration, bronchiectasis (with prior Pseudomonas), CKD III, chronic anemia, thrombocytopenia, and iron deficiency anemia who presented to the ED on the advice of her PCP with chief complaints of abdominal distention and bilateral lower extremity swelling. Admitted for fluid overload 2/2 biventricular heart failure, with accompanying DARLINE 2/2 cardiorenal syndrome, bullous COPD, and chronic UTI. #Fluid overload 2/2 biventricular heart failure with pulmonary hypertension -elevated JVP w/ +HJR indicates right-sided HF and b/l wet crackles/left lung crackles indicates left-sided HF -likely result of left HF leading to pulmonary hypertension leading to right heart failure -echocardiogram ordered for tomorrow to assess state of cardiomyopathy -last echo (Nov 2018) showed: "suggestive of mild elevation of estimated right ventricle systolic pressure (35-40 mmHg). Normal right ventricle size and systolic function. Structurally normal tricuspid leaflets with mild tricuspid regurgitation. Normal right atrial size. Central venous pressure estimated to be 5-10 mmHg. Hyperdynamic LV systolic function. Left ventricle ejection fraction (LVEF) 75% by visual estimate. LV diastolic function probably normal for age and heart rate. No regional wall motion abnormalities of the left ventricle. Normal LV wall thickening. Moderate aortic valve sclerosis of a 3-cuspid aortic valve. No aortic stenosis or regurgitation. Mild mitral annular calcification. Trace mitral regurgitation." -no added salt diet ordered -*1.5L qd fluid restriction ordered -daily weights/I & O monitoring -on telemetry -two Troponin were not elevated -s/p 40mg IV furosemide x1 in ED; *plan is to diurese first in the form of 40mg IV furosemide bid -CMP and Mg level in the morning -fall risk precautions due to b/l LE edema and related ambulatory limitations -nursing order to elevate legs when pt is at rest #Ascites 2/2 right-sided heart failure with pulmonary hypertension and possible liver cirrhosis from imaging -elevated JVP w/ +HJR -suspicious signs on imaging for liver cirrhosis -current plan is to carry out diuresis as detailed above first before considering paracentesis -Liver U/S scheduled in the morning after 6hr npo -PT eval to assess for ambulatory status and optimization of physical conditioning prior to discharge #Acute kidney injury on CKD III 2/2 cardiorenal syndrome -sCr 1.52, baseline appears to be 1.1-1.2; GFR 33% -dosing IV lasix as detailed above in the setting of fluid overload -avoid nephrotoxic meds #Bullous COPD vs bronchiectasis and extensive cystic changes from imaging -colonized with Pseudomonas previous -home albuterol inhaler continued -xopenex prn nebs ordered due to tachycardia -O2 titration orders 88-92% #Tachycardia likely 2/2 diminished cardiac preload -on telemetry 5mg IV lopressor 6h PRN for HR > 120 bpm #Chronic UTI -positive leuk esterase, 1+ uBacteria; UCx is pending -has history of chronic colonization on prior UA -asymptomatic; pharmacotherapy is deferred at this time #Chronic anemia with h/o chronic thrombocytopenia -normocytic anemia: Hgb 9.4, MCV 94.1; PLT 188 #History of GIB -admitted last month (06/19-06/26) for upper GI bleed -recent history of medical non-compliance when it comes to taking her home PPI and sucralfate -home pantoprazole continued #History of severe GERD and erosive esophagitis with ulceration #DVT prophylaxis: sc heparin q12h; Lovenox deferred d/t pt's renal compromise Disposition: Admitted to [facility] with telemetry and expected stay of at least 2 midnights for fluid status improvement and further workup. Vital Signs Vital Signs Date Time Temp Pulse Resp B/P (MAP) Pulse Ox O2 Delivery O2 Flow Rate FiO2 07/20/19 18:30 110 22 143/65 (91) 100 Room Air 07/20/19 13:49 97.7 Laboratory Data Labs 24H Laboratory Tests 2 07/20/19 15:10: Immature Granulocyte % (Auto) 0.4, Neutrophils (%) (Auto) 64.0, Lymphocytes (%) (Auto) 18.6L, Monocytes (%) (Auto) 11.0H, Eosinophils (%) (Auto) 5.6H, Basophils (%) (Auto) 0.4, Neutrophils # (Auto) 5.1, Lymphocytes # (Auto) 1.5, Monocytes # (Auto) 0.9H, Eosinophils # (Auto) 0.4, Basophils # (Auto) 0.0, Nucleated Red Blood Cells % (auto) 0.0, Prothrombin Time 16.3H, Prothromb Time International Ratio 1.34, Anion Gap 6L, Glomerular Filtration Rate 35.1L, Calcium Level 8.2L, Total Bilirubin 0.3, Direct Bilirubin 0.2, Aspartate Amino Transf (AST/SGOT) 31, Alanine Aminotransferase (ALT/SGPT) 23, Alkaline Phosphatase 119H, Ammonia 11, Total Creatine Kinase 90, Creatine Kinase MB 2.0, Creatine Kinase MB Relative Index 2.22, Troponin I < 0.02, Total Protein 6.9, Albumin 2.4L, Albumin/Globulin Ratio 0.5L, Lipase 26L 07/20/19 16:49: Urine Color YELLOW, Urine Appearance HAZY, Urine pH 6.0, Urine Specific [place] 1.004, Urine Protein NEGATIVE, Urine Glucose (UA) NEGATIVE, Urine Ketones NEGATIVE, Urine Blood 3+H, Urine Nitrite NEGATIVE, Urine Bilirubin NEGATIVE, Urine Urobilinogen 0.2, Urine Leukocyte Esterase 3+H, Urine WBC (Auto) 92H, Urine RBC (Auto) TNTCH, Urine Hyaline Casts (Auto) 0, Urine Bacteria (Auto) 1+H, Urine Squamous Epithelial Cells 0, Urine Calcium Oxalate Cryst (Auto) SMALL, Urine Sperm (Auto) CBC/BMP Laboratory Tests 07/20/19 15:10 Microbiology Microbiology 07/20/19 Urine Culture, Received Pending Home Medications Scheduled Ascorbic Acid (Vitamin C) 250 Mg Tab, 250 MG PO DAILY Calcium Carbonate/Vitamin D3 (Oyster Shell 500-Vit D3 200 Tb) 1 Tab Tab, 1 TAB PO DAILY Multivitamins (Thera M Plus Tablet) 1 Tab Tab, 1 TAB PO DAILY Pantoprazole Sodium (Pantoprazole Sodium) 40 Mg Tablet.dr, 40 MG PO BID Pilocarpine HCl (Pilocarpine HCl) 1% 15ML Drops, 1 DROP OS QID Sucralfate (Sucralfate) 1 Gm Tablet, 1 GM PO Q6H Scheduled PRN Albuterol Sulf (Albuterol Sulfate) 2.5 Mg/3 Ml Nebu, 2.5 MG INH QID PRN for SHORTNESS OF BREATH Allergies Coded Allergies: bimatoprost (Verified Allergy, Intermediate, EYE REDNESS, 12/05/18) cephalexin (Unverified Allergy, Unknown, 07/20/19) doxycycline (Unverified Allergy, Unknown, 07/20/19) levofloxacin (Unverified Allergy, Unknown, 07/20/19) latanoprost (Verified Adverse Reaction, Intermediate, EYE PAIN HEART RACING, 07/20/19) travoprost (Verified Adverse Reaction, Intermediate, EYE PAIN HEART RACING, 07/20/19) Sulfa (Sulfonamide Antibiotics) (Verified Adverse Reaction, Mild, GI ISSUES, 07/20/19) brimonidine (Verified Adverse Reaction, Mild, 07/20/19) diclofenac (Verified Adverse Reaction, Mild, VOMITS, 07/20/19) dorzolamide (Verified Adverse Reaction, Mild, CONGESTED,COUGH, 07/20/19) moxifloxacin (Verified Adverse Reaction, Mild, DIARRHEA, 12/05/18) timolol (Verified Adverse Reaction, Mild, CONGESTED,COUGH, 07/20/19) A-FIB/CHADSVASC A-FIB History Current/History of A-Fib/PAF?: No Current PO Anticoag Therapy: No GME ATTESTATION GME ATTESTATION My faculty preceptor for this patient encounter was physically present during the encounter and was fully available. All aspects of the patient interview, examination, medical decision making process, and medical care plan development were reviewed and approved by the faculty preceptor. The faculty preceptor is aware and concurs with the plan as stated in the body of this note and will attest to such by his/her cosignature. ATTENDING NOTE Patient was seen and examined by me with the residents. agree with the above assessment and plan . LAMAR CANO D.O. July 20, 2019 18:49 MARY FROST MD July 21, 2019 16:13
[2019-07-20] MEDS ORDERED: ACETAMINOPHEN TAB 650MG DOSE (2X325MG) PO PRN (20:00)
[2019-07-20] MEDS ORDERED: MOM 30ML SUSPENSION UDC PO PRN (20:00)
[2019-07-20] MEDS ORDERED: METOPROLOL 5 MG/5 ML VIAL IV PRN (20:30)
[2019-07-20] MEDS ORDERED: ALBUTEROL SULFATE 2.5 MG/0.5 ML INH NEB SOLN INH PRN (20:30)
[2019-07-20] MEDS ORDERED: LEVALBUTEROL 1.25 MG/0.5 ML CONCENTRATE NEB INH PRN (20:30)
[2019-07-20 21:00] VITALS: O2SAT 94
[2019-07-20] MEDS: DOCUSATE SODIUM 100 MG CAP PO SCH (21:00)
[2019-07-20 21:18] LABS: CK-MB VALUE MASS 1.7 NG/ML (<3.6); CPK CREATINE PHOSPHOKINASE 88 U/L (26-192); MB/CK RELATIVE INDEX 1.93 (< OR =4); TROPONIN I < 0.02 NG/ML (< 0.10)
[2019-07-20 21:50] VITALS: BP 125/59
[2019-07-20 22:00] VITALS: BP 125/59
[2019-07-20] MEDS: PANTOPRAZOLE 40MG TAB (PROTONIX) PO SCH (22:08)
[2019-07-20] MEDS: FUROSEMIDE 40MG/4ML VIAL (J1940) IV SCH (22:54)
[2019-07-20] MEDS: PILOCARPINE 1% OPHTH SOLN 15 ML OS SCH (22:55)
[2019-07-20] MEDS: SUCRALFATE 1 GM TAB PO SCH (23:37)
[2019-07-21] MEDS: SUCRALFATE 1 GM TAB PO SCH ×3 (05:20→17:45)
[2019-07-21 06:00] VITALS: BP 122/60
[2019-07-21 06:25] LABS: HEMATOCRIT 28.5 % (36.0-47.0); MEAN CORPUSCULAR HEMOGLOBIN 28.8 pg (27.0-33.0); MEAN CORPUSCULAR HGB CONC 31.6 g/dl (32.0-36.5); MEAN CORPUSCULAR VOLUME 91.1 fl (80.0-96.0); PLATELET COUNT, AUTOMATED 174 10^3/uL (150-450); RED BLOOD COUNT 3.13 10^6/uL (4.00-5.40); WHITE BLOOD COUNT 8.1 10^3/uL (4.0-10.0)
--- NOTE | 2019-07-21 06:47 | REPVR ---
PROCEDURE INFORMATION: Exam: US Abdomen Limited, Right Upper Quadrant Exam date and time: 07/21/2019 6:30 AM Age: 78 years old Clinical indication: Abdominal pain; Acute; Additional info: Elevated jvp and ascites on presentation TECHNIQUE: Imaging protocol: Real-time ultrasound of the abdomen with image documentation. Examination was focused on the right upper quadrant. COMPARISON: RENAL US 04/12/2019 1:45 PM FINDINGS: Liver: The liver is nodular in contour suggestive of cirrhosis. No focal mass is seen. Gallbladder: 2.5 cm gallstones seen within the gallbladder. Gallbladder is partially distended. There is gallbladder wall thickening at 4-5 mm. There is no gallbladder wall edema. Common bile duct: The CBD is normal in caliber measuring 3 mm in diameter. Pancreas: The pancreatic head and body are unremarkable. The tail of the pancreas is obscured. Right kidney: The right kidney measures 9.4 x 4.7 x 4.4 cm. There is no right renal mass, stone, cyst or hydronephrosis. Intraperitoneal space: Moderate abdominal ascites is seen. IMPRESSION: 1. Cirrhotic liver with moderate ascites. 2. 2.5 cm gallstone. Thickened gallbladder wall at 4-5 mm is nonspecific and could be secondary to hepatopathy or chronic cholecystitis however underlying acute cholecystitis cannot be completely excluded. If indicated HIDA scan may be obtained for further evaluation. Electronically signed by: Gil Briseno On 07/21/2019 06:47:01 AM
[2019-07-21 06:56] LABS: ALBUMIN 2.1 GM/DL (3.2-5.2); ALT/SGPT 20 U/L (12-78); BILIRUBIN,TOTAL 0.6 MG/DL (0.2-1.0); BLOOD UREA NITROGEN 13 MG/DL (7-18); CALCIUM LEVEL 8.2 MG/DL (8.8-10.2); CARBON DIOXIDE LEVEL 28 MEQ/L (21-32); CHLORIDE LEVEL 107 MEQ/L (98-107); CPK CREATINE PHOSPHOKINASE 67 U/L (26-192); CREATININE FOR GFR 1.58 MG/DL (0.55-1.30); GLOMERULAR FILTRATION RATE 33.6 (>39); GLUCOSE, FASTING 87 MG/DL (70-100); MAGNESIUM LEVEL 1.7 MG/DL (1.8-2.4); MB/CK RELATIVE INDEX 1.49 (< OR =4); POTASSIUM SERUM 3.4 MEQ/L (3.5-5.1); SODIUM LEVEL 143 MEQ/L (136-145); TOTAL PROTEIN 6.5 GM/DL (6.4-8.2); TROPONIN I < 0.02 NG/ML (< 0.10)
[2019-07-21] MEDS ORDERED: MAG SULF 1GM/100ML (MAG RUN) 1 GM in IV 1 EA IV ONE (09:00)
[2019-07-21] MEDS ORDERED: POTASSIUM CHLORIDE 10 MEQ SR TABLET PO ONE (09:00)
[2019-07-21] MEDS ORDERED: FUROSEMIDE 40MG/4ML VIAL (J1940) IV SCH (09:00)
[2019-07-21] MEDS: HEPARIN SOD (PORCINE) 5000UNITS/ML VIAL (J1644 PER 1000UNITS) SC SCH ×2 (09:34→20:27)
[2019-07-21] MEDS: FUROSEMIDE 40MG/4ML VIAL (J1940) IV SCH ×2 (09:35→17:45)
[2019-07-21] MEDS: MULTIVITAMINS/MINERALS THERAP 1 TAB PO SCH (09:35)
[2019-07-21] MEDS: DOCUSATE SODIUM 100 MG CAP PO SCH (09:35)
[2019-07-21] MEDS: CALCIUM/VITAMIN D 500 MG TAB PO SCH (09:35)
[2019-07-21] MEDS: PANTOPRAZOLE 40MG TAB (PROTONIX) PO SCH ×2 (09:35→20:27)
[2019-07-21] MEDS: PILOCARPINE 1% OPHTH SOLN 15 ML OS SCH ×4 (09:36→20:27)
[2019-07-21] MEDS: KCL 10MEQ/100ML SWI (KRUN) 10 MEQ in IV 1 EA IV SCH ×2 (10:19→12:38)
[2019-07-21 14:00] VITALS: BP 102/41
[2019-07-21] MEDS: ASCORBIC ACID 250 MG TAB PO SCH (14:02)
[2019-07-21 16:31] LABS: MAGNESIUM LEVEL 2.3 MG/DL (1.8-2.4); POTASSIUM SERUM 3.9 MEQ/L (3.5-5.1)
--- NOTE | 2019-07-21 16:48 | IPNPDOC ---
Date Seen The patient was seen on 07/21/19. Progress Note SUBJECTIVE: This is a 78yo female w/ h/o GI bleeds (most recently upper GIB last mo)/severe GERD/erosive esophagitis with ulceration, bronchiectasis (with prior Pseudomonas), CKD III, chronic anemia, thrombocytopenia, and iron deficiency anemia who presented to the ED on the advice of her PCP with chief complaints of abdominal distention and bilateral lower extremity swelling. Admitted for fluid overload 2/2 biventricular heart failure, with accompanying DARLINE 2/2 cardiorenal syndrome, bullous COPD, and chronic UTI. *Ramon was seen and examined this morning by hospitalist service while lying in bed. She resists starting her lunch. She reports 6 loose bowel movements since we admitted her yesterday evening. She continues to endorse mild shortness of breath with no pleuritic chest pain. She continues to have some moderate abdominal discomfort with sensation of bloating, but denies any significant nausea or vomiting. She denies any general, chest pain, chest pressure, palpi tations, blood in stool, or hematuria. She had no adverse events overnight. OBJECTIVE PHYSICAL EXAMINATION: VITAL SIGNS: Please see below. GENERAL APPEARANCE: Pleasant elderly female lying upright in bed. No acute distress. Alert and oriented 3. HEENT: Normocephalic, atraumatic. Wearing eyeglasses. Pupils are not round bilaterally with some diminished reactivity to light and accommodation. Mild conjunctival pallor. Noninjected sclera with some mild scleral icterus. Upper dentures in place with no lower teeth. No pharyngeal erythema or exudate. MMM. CARDIOVASCULAR: Regular rate, regular rhythm. +S1, S2 with no appreciable gallops or rubs. No carotid bruits appreciated. +HJR LUNGS: Audible wet sounding lungs. Diffuse bilateral crackles posteriorly. Symmetric chest expansion. Speaking full sentences. Breathing room air. ABDOMEN: Distension still present but moderately improved from yesterday. with tenderness of the right upper quadrant and guarding. No rigidity. Normoactive bowel sounds heard throughout. No significant fluid wave appreciated. MUSCULOSKELETAL: /5 muscle strength testing, UE and LE b/l EXTREMITIES: 3+ bilateral pitting edema with bilateral pitting pedal edema. Hands and feet are cool to the touch. No calf tenderness. NEUROLOGICAL: Awake, alert and oriented 3. No focal neurologic deficits appreciated. Non-dysarthric speech. Responded properly to questions and co mmands. PSYCHIATRIC: Mood and affect appear appropriate. LABORATORY DATA, IMAGING STUDIES, MICROBIOLOGY: Please see below. Echocardiogram: DVT prophylaxis ordered?: Yes; sc heparin q12h ASSESSMENT AND PLAN: This is a 78yo female w/ h/o GI bleeds (most recently upper GIB last mo)/severe GERD/erosive esophagitis with ulceration, bronchiectasis (with prior Pseudomonas), CKD III, chronic anemia, thrombocytopenia, and iron deficiency anemia who presented to the ED on the advice of her PCP with chief complaints of abdominal distention and bilateral lower extremity swelling. Admitted for fluid overload 2/2 biventricular heart failure, with accompanying DARLINE 2/2 cardiorenal syndrome, bullous COPD, and chronic UTI. #Fluid overload 2/2 right heart failure with pulmonary hypertension -likely result of pulm htn leading to right heart failure -Possible element of left heart failure with auscultation of b/l crackles -echocardiogram ordered for today has not been read yet; last echo (Nov 2018) showed: "suggestive of mild elevation of estimated right ventricle systolic pressure (35-40 mmHg). Normal right ventricle size and systolic function. Structurally normal tricuspid leaflets with mild tricuspid regurgitation. Normal right atrial size. Central venous pressure estimated to be 5-10 mmHg. Hyperdynamic LV systolic function. Left ventricle ejection fraction (LVEF) 75% by visual estimate. LV diastolic function probably normal for age and heart rate. No regional wall motion abnormalities of the left ventricle. Normal LV wall thickening. Moderate aortic valve sclerosis of a 3-cuspid aortic valve. No aortic stenosis or regurgitation. Mild mitral annular calcification. Trace mitral regurgitation." -no added salt diet ordered -*1.5L qd fluid restriction ordered -daily weights/I & O monitoring -on telemetry -I&O: net negative 1L since admission -two Troponin were not elevated -c/w IV 40mg furosemide dosing -sMg and sK repleted today; monitor f/u metabolic panels -elevate legs when pt is at rest #Ascites 2/2 right-sided heart failure with pulmonary hypertension and possible liver cirrhosis from imaging -Liver ultrasound this morning showed: "Cirrhotic liver with moderate ascites. 2.5 cm gallstone. Thickened gallbladder wall at 4-5 mm is nonspecific and could be secondary to hepatopathy or chronic cholecystitis however underlying acute cholecystitis cannot be completely excluded. If indicated HIDA scan may be obtained for further evaluation." -Patient asked again today and denies any significant previous alcohol use -Ascites believed to be prominently secondary to fluid build-up from right heart failure -PT eval to assess for ambulatory status and optimization of physical conditioning prior to discharge -Hepatitis profile ordered. #Acute kidney injury on CKD III 2/2 cardiorenal syndrome -sCr 1.58 today, baseline appears to be 1.1-1.2; GFR 33% -dosing IV lasix as detailed above in the setting of fluid overload -sK (3.4) and sMg (1.7) both repleted this morning with follow-up levels -avoid nephrotoxic meds #Bullous COPD vs bronchiectasis and extensive cystic changes from imaging -colonized with Pseudomonas previous -home albuterol inhaler continued -xopenex prn nebs ordered due to tachycardia -O2 titration orders 88-92% #History of Clostridium difficile colitis on May 2019 admission -Patient reports 6 loose watery stools since admission last evening with characteristic C. difficile aroma. -GI panel and C. difficile PCR ordered -Isolation precautions made #Tachycardia on presentation likely 2/2 cardiac output compensation for compromised contractility due to ventricular fluid overload from right heart failure -Rate his pain control overnight and this morning; continue with 5mg IV lopressor 6h PRN for HR > 120 bpm #Chronic UTI -positive leuk esterase, 1+ uBacteria; UCx is pending -has history of chronic colonization on prior UA -asymptomatic; pharmacotherapy is deferred at this time #Chronic anemia with h/o chronic thrombocytopenia -normocytic anemia: Hgb 9.0, MCV 91; PLT 174 -Possibly secondary to liver cirrhosis; continue to follow CBC #History of GIB -admitted last month (06/19-06/26) for upper GI bleed -recent history of medical non-compliance when it comes to taking her home PPI and sucralfate -home pantoprazole continued #History of severe GERD and erosive esophagitis with ulceration -Home pantoprazole continued #DVT prophylaxis: sc heparin q12h; Lovenox deferred d/t pt's renal compromise Disposition: Admitted to [facility] with telemetry and expected stay of at least 2 midnights. VS, I&O, 24H, Fishbone Vital Signs/I&O Vital Signs Date Time Temp Pulse Resp B/P (MAP) Pulse Ox O2 Delivery O2 Flow Rate FiO2 07/21/19 14:53 99.1 07/21/19 14:00 85 17 102/41 (61) 95 Room Air I&O- Last 24 Hours up to 6 AM 07/21/19 06:00 Intake Total 75 ml Output Total 775 ml Balance -700 ml Laboratory Data 24H LABS Laboratory Tests 2 07/20/19 16:49: Urine Color YELLOW, Urine Appearance HAZY, Urine pH 6.0, Urine Specific [place] 1.004, Urine Protein NEGATIVE, Urine Glucose (UA) NEGATIVE, Urine Ketones NEGATIVE, Urine Blood 3+H, Urine Nitrite NEGATIVE, Urine Bilirubin NEGATIVE, Urine Urobilinogen 0.2, Urine Leukocyte Esterase 3+H, Urine WBC (Auto) 92H, Urine RBC (Auto) TNTCH, Urine Hyaline Casts (Auto) 0, Urine Bacteria (Auto) 1+H, Urine Squamous Epithelial Cells 0, Urine Calcium Oxalate Cryst (Auto) SMALL, Urine Sperm (Auto) 07/20/19 20:42: Total Creatine Kinase 88, Creatine Kinase MB 1.7, Creatine Kinase MB Relative Index 1.93, Troponin I < 0.02 07/21/19 06:05: Total Creatine Kinase 67, Creatine Kinase MB 1.0, Creatine Kinase MB Relative Index 1.49, Troponin I < 0.02, Nucleated Red Blood Cells % (auto) 0.0, Anion Gap 8, Glomerular Filtration Rate 33.6L, Calcium Level 8.2L, Magnesium Level 1.7L, Total Bilirubin 0.6#, Aspartate Amino Transf (AST/SGOT) 23, Alanine Ami notransferase (ALT/SGPT) 20, Alkaline Phosphatase 107, Total Protein 6.5, Albumin 2.1L, Albumin/Globulin Ratio 0.5L 07/21/19 15:57: CBC/BMP Laboratory Tests 07/21/19 06:05 Microbiology Microbiology 07/20/19 Urine Culture, Received Pending GME ATTESTATION GME ATTESTATION My faculty preceptor for this patient encounter was physically present during the encounter and was fully available. All aspects of the patient interview, examination, medical decision making process, and medical care plan development were reviewed and approved by the faculty preceptor. The faculty preceptor is aware and concurs with the plan as stated in the body of this note and will attest to such by his/her cosignature. ATTENDING NOTE Patient seen and examined by me with the residents. Agree with the above assessment and plan LAMAR CANO D.O. July 21, 2019 16:48 MARY FROST MD July 21, 2019 17:07
[2019-07-21 22:00] VITALS: BP 96/48
[2019-07-22] VITALS (7 sets, daily range): BP systolic 99–119; BP diastolic 44–58; O2SAT 93–94
[2019-07-22] MEDS: SUCRALFATE 1 GM TAB PO SCH ×4 (00:14→18:21)
[2019-07-22] MEDS: FUROSEMIDE 40MG/4ML VIAL (J1940) IV SCH ×2 (09:00→14:03)
[2019-07-22] MEDS: ASCORBIC ACID 250 MG TAB PO SCH (09:25)
[2019-07-22] MEDS: MULTIVITAMINS/MINERALS THERAP 1 TAB PO SCH (09:25)
[2019-07-22] MEDS: PANTOPRAZOLE 40MG TAB (PROTONIX) PO SCH ×2 (09:25→21:05)
[2019-07-22] MEDS: HEPARIN SOD (PORCINE) 5000UNITS/ML VIAL (J1644 PER 1000UNITS) SC SCH ×2 (09:26→21:05)
[2019-07-22] MEDS: PILOCARPINE 1% OPHTH SOLN 15 ML OS SCH ×4 (09:26→21:05)
[2019-07-22] MEDS: CALCIUM/VITAMIN D 500 MG TAB PO SCH (09:26)
[2019-07-22 09:28] LABS: CALCIUM LEVEL 8.8 MG/DL (8.8-10.2); CREATININE FOR GFR 1.98 MG/DL (0.55-1.30); GLOMERULAR FILTRATION RATE 25.9 (>39); MAGNESIUM LEVEL 2.1 MG/DL (1.8-2.4); POTASSIUM SERUM 4.3 MEQ/L (3.5-5.1)
--- NOTE | 2019-07-22 14:01 | IPNPDOC ---
Subjective Date Seen The patient was seen on 07/22/19. Subjective Chief Complaint/HPI Pt is a 78 year old female with a history of GI bleeds (upper GIB last month), severe GERD, erosive esophagitis with ulceration, bronchiectasis (with Hx of pseudomonas), CKDII, chronic anemia, thrombocytopenia, and RONEN who presented to the ED with abdominal distention and b/l lower extremity swelling. Admitted for fluid overload 2/2 biventeicular HF, with accompanying DARLINE 2/2 cardiorenal syndrome, bullous COPD, and chronic UTI. Pt seen sitting up in her room this morning. She looks well. Denied any episodes overnight. General: Denies: Chills, Night Sweats, Fatigue, Malaise Constitutional: Denies: Chills, Fever, Night Sweats ENT: Denies: Head Aches Skin: Denies: Rash Pulmonary: Denies: Dyspnea, Cough Cardiovascular: Denies: Chest Pain, Palpitations, Orthopnea, Paroxysmal Noc. Dyspnea, Lt Headedness Gastrointestinal: Denies: Nausea, Vomiting, Abdominal Pain, Diarrhea, Constip ation Genitourinary: Denies: Dysuria, Retention Musculoskeletal: Denies: Neck Pain, Back Pain, Joint Pain Neurological: Denies: Weakness, Numbness, Change in speech, Confusion Psych: Reports: Mood Normal; Denies: Depression, Memory Issues Objective Physical Examination General Exam: Positive: Alert, No Acute Distress Eye Exam: Positive: PERRLA, Conjunctiva & lids normal; Negative: Sclera icteric ENT Exam: Positive: Atraumatic Neck Exam: Positive: Supple; Negative: thyromegaly Chest Exam: Positive: Normal air movement, Other (Mild crackles bibasilar; normal respiratory effort on RA) Heart Exam: Positive: Rate Normal, Regular Rhythm, Normal S1, Normal S2; Negative: Murmurs, Rubs Telemetry: Positive: No significant arrhythmia Abdomen Exam: Positive: Normal bowel sounds (mild distention ), Soft; Negative: Tenderness Extremity Exam: Positive: Edema (2+ b/l pitting pedal edema ); Negative: Clubbing, Cyanosis Skin Exam: Positive: Nl turgor and temperature Neuro Exam: Positive: Normal Speech Psych Exam: Positive: Mood NL Assessment /Plan Assessment 1. Pulmonary HTN - currently volume overloaded - ECHO 2019 showed mildly elevated RV pressures, 75% LVEF, normal CVP with mild tricuspid regurg. - ECHO has been completed. Report pending. -no added salt diet ordered -1500cc fluid restriction ordered/daily weights/I & O monitoring -continue telemetry - negative troponin x2 - Furosemide 40mg IV on hold today as BPs soft. - nursing will encourage pt to drink up to her 1500cc and monitor BP 2. Ascites - 2/2 right-sided heart failure with pulmonary hypertension and cirrhosis - pt has denied any Hx alcohol abuse - Hep profile - pending 3. Acute kidney injury on CKD III 2/2 cardiorenal syndrome - baseline Cr ~ 1.1-1 - IV Lasix on hold as BPs soft; reassess at next scheduled dose and resume if BP will tolerate 4. Bullous COPD vs bronchiectasis and extensive cystic changes from imaging -colonized with Pseudomonas previous -home albuterol inhaler continued -xopenex prn nebs ordered due to tachycardia -O2 titration orders 88-92% 5. History of Clostridium difficile colitis on May 2019 admission -Patient reports 6 loose watery stools since admission last evening with characteristic C. difficile aroma. -GI panel and C. difficile PCR ordered -Isolation precautions made - GI panel +ve for C. diff., pt possibly colonized as treated in May; currently formed stools and VS stable. No abx treatment indicated. 6. Chronic UTI - Urine culture - E. coli -has history of chronic colonization on prior UA -asymptomatic; no abx treatment indicated 7. Chronic anemia with h/o chronic thrombocytopenia -normocytic anemia: Hgb 9.0, MCV 91; PLT 174 -Possibly secondary to liver cirrhosis; continue to follow CBC 8. History of GIB -admitted May 2019 for GIB -recent history of medical non-compliance when it comes to taking her home PPI a nd sucralfate. Continue inpt. 9. History of severe GERD and erosive esophagitis with ulceration -Continue Pantoprazole Plan/VTE VTE Prophylaxis Ordered?: Yes (Heparin ) VS, I&O, 24H, Fishbone Vital Signs/I&O Vital Signs Date Time Temp Pulse Resp B/P (MAP) Pulse Ox O2 Delivery O2 Flow Rate FiO2 07/22/19 09:24 90 99/44 (62) 07/22/19 06:00 98.1 17 94 Room Air I&O- Last 24 Hours up to 6 AM 07/22/19 06:00 Intake Total 1080 ml Output Total 1520 ml Balance -440 ml Laboratory Data 24H LABS Laboratory Tests 2 07/21/19 15:57: Magnesium Level 2.3 07/22/19 08:53: Magnesium Level 2.1, Anion Gap 7L, Glomerular Filtration Rate 25.9L, Calcium Level 8.8 CBC/BMP Laboratory Tests 07/21/19 15:57 07/22/19 08:53 Microbiology Microbiology 07/22/19 Gastrointestinal Tract Panel (PCR) - Final, Complete Clostridium Difficile A/B 07/20/19 Urine Culture - Final, Complete Escherichia Coli ALBINO ARROYO PA-C July 22, 2019 14:01
--- NOTE | 2019-07-22 16:14 | ECHO ---
DATE OF PROCEDURE: AGE: 78 GENDER: Female. HEIGHT: 60 inches WEIGHT: 116 pounds BODY SURFACE AREA: 1.48 sq m INPATIENT: [address] [place] [address], room 4221. REFERRING PHYSICIAN: Bernabe Sanchez INDICATION: Heart failure (unspecified). MEASUREMENTS: 2D measurements: RV: 3.2 cm LV: 3.7 cm Septum: 1.0 cm Posterior wall: 1.0 cm Aortic root: 3.2 cm LA: 3.0 cm LVEF: 75% Doppler measurements: AV: 1.28 m/s LVOT: 1.07 m/s LVOT diameter: 1.8 cm MV-E: 85 A: 106 EA ratio: 0.8 Early mitral deceleration time: 208 ms E prime medial: 8.8 A prime medial: 12 E prime lateral: 8.3 Average E/E prime ratio: 9.9/PCWP: 14 mmHg PV: 0.95 m/s Pulmonary artery acceleration time: 113 ms RVSP: 32 mmHg IVC: 1.8 cm COMMENTS: Normal sinus rhythm without intraventricular conduction disturbance. M-mode and two-dimensional echocardiography was performed with pulsed, continuous wave, color flow, and tissue Doppler studies. Normal left ventricular size, wall thickness, and hyperkinetic wall motion. Normal left atrial size with grade 1 left ventricle (LV) diastolic dysfunction in keeping with her age with currently normal estimated mean left atrial pressure. Normal right heart chamber sizes and motion with Doppler sign of borderline pulmonary hypertension. Normal inferior vena cava (IVC) size. The degree of collapse could not be well visualized, so we estimated her central venous pressure at 10 mmHg. Mild aortic valvular sclerosis without functional abnormality. Mildly thickened mitral annulus with normal leaflet excursion and very mild insufficiency (physiologic). Normal appearing tricuspid valve with trace insufficiency. No apparent intracardiac mass or pericardial effusion. MTDD
[2019-07-23] MEDS ORDERED: ERTAPENEM SODIUM 0.5 GM in NS 50 ML IV SCH ×2
[2019-07-23] MEDS: SUCRALFATE 1 GM TAB PO SCH ×5 (01:10→23:10)
[2019-07-23 06:00] VITALS: BP 112/53
[2019-07-23 07:19] LABS: ALBUMIN 1.9 GM/DL (3.2-5.2); BILIRUBIN,TOTAL 0.6 MG/DL (0.2-1.0); CALCIUM LEVEL 8.6 MG/DL (8.8-10.2); CREATININE FOR GFR 1.55 MG/DL (0.55-1.30); GLOMERULAR FILTRATION RATE 34.3 (>39); POTASSIUM SERUM 4.3 MEQ/L (3.5-5.1); TOTAL PROTEIN 5.8 GM/DL (6.4-8.2)
[2019-07-23 08:52] VITALS: BP 95/42
[2019-07-23] MEDS: MULTIVITAMINS/MINERALS THERAP 1 TAB PO SCH (08:52)
[2019-07-23] MEDS: PANTOPRAZOLE 40MG TAB (PROTONIX) PO SCH ×2 (08:52→20:29)
[2019-07-23] MEDS: FUROSEMIDE 40MG/4ML VIAL (J1940) IV SCH (08:52)
[2019-07-23] MEDS: HEPARIN SOD (PORCINE) 5000UNITS/ML VIAL (J1644 PER 1000UNITS) SC SCH ×2 (08:52→20:29)
[2019-07-23] MEDS: ASCORBIC ACID 250 MG TAB PO SCH (08:52)
[2019-07-23] MEDS: PILOCARPINE 1% OPHTH SOLN 15 ML OS SCH ×4 (08:52→20:30)
[2019-07-23] MEDS: CALCIUM/VITAMIN D 500 MG TAB PO SCH (08:52)
[2019-07-23 09:00] VITALS: O2SAT 93
[2019-07-23] MEDS ORDERED: VANCOMYCIN ORAL SOL 250MG/5ML ORAL SYRINGE PO SCH (12:00)
[2019-07-23] MEDS: FIDAXOMICIN 200 MG TAB (DIFICID) PO SCH ×2 (12:33→20:29)
[2019-07-23 14:00] VITALS: BP 102/42
--- NOTE | 2019-07-23 14:11 | IPNPDOC ---
Date Seen The patient was seen on 07/23/19. Progress Note SUBJECTIVE: Ramon was seen and examined this morning by the hospital service while lying upright in bed. She reports for bowel movements since yesterday morning with 3 of them being watery. She is tolerating liquids and solids without any issues. She feels as though her abdominal discomfort and bloating is significantly improved from admission. She denies any fever, chills, night sweats, chest pain, chest pressure, palpitations, pleuritic chest pain, abdominal pain, nausea, or vomiting. Background: This is a 78yo female w/ h/o GI bleeds (most recently upper GIB last mo)/severe GERD/erosive esophagitis with ulceration, bronchiectasis (with prior Pseudomonas), CKD III, chronic anemia, thrombocytopenia, and iron deficiency anemia who presented to the ED on the advice of her PCP with chief complaints of abdominal distention and bilateral lower extremity swelling. Admitted for fluid overload 2/2 liver cirrhosis with accompanying DARLINE on CKD III possibly 2/2 hepatorenal syndrome, bullous COPD, and chronic UTI. OBJECTIVE PHYSICAL EXAMINATION: VITAL SIGNS: Please see below. GENERAL APPEARANCE: Pleasant elderly female lying upright in bed. No acute distress. Alert and oriented 3. HEENT: Normocephalic, atraumatic. Wearing eyeglasses. Pupils are not round bilaterally with some diminished reactivity to light and accommodation. Noninjected sclera with some mild scleral icterus. Upper dentures in place with no lower teeth. No pharyngeal erythema or exudate. CARDIOVASCULAR: Regular rate, regular rhythm. +S1, S2 with no appreciable gallops or rubs. No carotid bruits appreciated. LUNGS: Audible wet sounding lungs. Diffuse bilateral crackles posteriorly. Symmetric chest expansion. Speaking full sentences. Breathing room air. Expectorated quarter-sized baeza sputum sample ABDOMEN: Distension still present but certainly improved from admission three days ago. Tenderness of the right upper quadrant and guarding. No rigidity. Normoactive bowel sounds heard throughout. No fluid wave appreciated. MUSCULOSKELETAL: 07/02 muscle strength testing, UE and LE b/l EXTREMITIES: 2+ bilateral pitting edema. No calf tenderness. NEUROLOGICAL: Awake, alert and oriented 3. No focal neurologic deficits appreciated. Non-dysarthric speech. Responded properly to questions and comman ds. PSYCHIATRIC: Mood and affect appear appropriate. LABORATORY DATA, IMAGING STUDIES, MICROBIOLOGY: Please see below. Echocardiogram, 5/24/20: Impression- Normal sinus rhythm without intraventricular conduction disturbance. M-mode and two-dimensional echocardiography was performed with pulsed, co ntinuous wave, color flow, and tissue Doppler studies. Normal left ventricular size, wall thickness, and hyperkinetic wall motion. Normal left atrial size with grade 1 left ventricle (LV) diastolic dysfunction in keeping with her age with currently normal estimated mean left atrial pressure. Normal right heart chamber sizes and motion with Doppler sign of borderline pulmonary hypertension. Normal inferior vena cava (IVC) size. The degree of collapse could not be well visualized, so we estimated her central venous pressure at 10 mmHg. Mild aortic valvular sclerosis without functional abnormality. Mildly thickened mitral annulus with normal leaflet excursion and very mild insufficiency (physiologic). Normal appearing tricuspid valve with trace insufficiency. No apparent intracardiac mass or pericardial effusion. LVEF: 75% PCWP: 14 mmHg DVT prophylaxis ordered?: Yes; hep sc ASSESSMENT AND PLAN: This is a 78yo female w/ h/o GI bleeds (most recently upper GIB last mo)/severe GERD/erosive esophagitis with ulceration, bronchiectasis (with prior Pseudomonas), CKD III, chronic anemia, thrombocytopenia, and iron deficiency anemia who presented to the ED on the advice of her PCP with chief complaints of abdominal distention and bilateral lower extremity swelling. Admitted for fluid overload 2/2 liver cirrhosis and possible hepatorenal syndrome with accompanying DARLINE on CKD III, bullous COPD, and chronic UTI. #Fluid overload 2/2 liver cirrhosis and CKD III, possible hepatorenal process developing -Results of the echo yesterday showed borderline pulmonary hypertension with EF 75% and no significant right-sided chamber pathology; therefore prevailing initial thought of pulmonary hypertension causing right heart failure as contributor to her fluid overload is unlikely at this point -IV Lasix were held yesterday for hypotension and patient's serum creatinine improved from 1.98 to 1.55; after reviewing echo results, plan was to transition to oral furosemide and to decrease dosing, but with renal improvement due to withheld Lasix, we will continue to hold them and see how her renal functioning response -no added salt diet ordered -I&O: Cumulative since admission is roughly net negative 600 #Ascites likely 2/2 liver cirrhosis from imaging -Liver ultrasound from 07/19 showed: "Cirrhotic liver with moderate ascites. 2.5 cm gallstone. Thickened gallbladder wall at 4-5 mm is nonspecific and could be secondary to hepatopathy or chronic cholecystitis however underlying acute cholecystitis cannot be completely excluded. If indicated HIDA scan may be obtained for further evaluation." -Patient has denied current, or past, significant EtOH use -PT eval to assess for ambulatory status and optimization of physical conditioning prior to discharge -Albumin decreased at 1.9, otherwise, hepatitis-related labs unremarkable -Patient's abdominal discomfort/distention is improved from admission three days ago, therefore, therapeutic paracentesis is deferred at this time #Acute kidney injury on CKD III, possibly 2/2 hepatorenal syndrome -sCr improved to 1.55 from 1.98 yesterday; this is likely 2/2 held lasix dosing. Due to improved sCr, PO lasix will be held again today with -echo showed no significant right-sided heart failure, IV Lasix subsequently discontinued. -plan to d/c IV lasix and switch to PO 40mg qd, but we'll hold today in favor of recent renal improvement without lasix -avoid nephrotoxic meds -am BMP ordered #Bullous COPD vs bronchiectasis and extensive cystic changes from imaging -colonized with Pseudomonas previous -lung pathology on imaging is significant but unchanged from admission last month -home albuterol inhaler continued -xopenex prn nebs ordered due to tachycardia -O2 titration orders 88-92% -sputum cx collected and sent today #C. difficile infection -positive for c diff during admission last month; was resistant to vanc and subsequently took 2 days of Dificid but was not compliant for 8 remaining days after discharge -Tuesday GI panel was positive for Clostridioides difficile; likely the same strain of C diff from last month and not a recurrence d/t incomplete ABx duration -Dificid ordered again bid for 10 days; should complete this cycle on 07/31 -Isolation precautions #Chronic UTI -positive leuk esterase, 1+ uBacteria; UCx +E. coli -has history of chronic colonization on prior UA -continues to remain asymptomatic; overnight team added ertapenem that was d/c today as symptomatology and chronicity of infection do not warrant tx at this time #Chronic anemia with h/o chronic thrombocytopenia -normocytic anemia: Hgb 9.0, MCV 91; PLT 174 -Possibly secondary to liver cirrhosis; continue to follow CBC #History of GIB -admitted last month (06/19-06/26) for upper GI bleed -recent history of medical non-compliance when it comes to taking her home PPI and sucralfate -home pantoprazole continued #History of severe GERD and erosive esophagitis with ulceration -Home pantoprazole continued for now; pt has no reflux complaints, potentially could de-escalate or d/c since PPI meds are known potential block cuber of C. diff #DVT prophylaxis: sc heparin q12h; Lovenox deferred d/t pt's renal compromise Disposition: Admitted to [facility] with telemetry and expected stay of at least 2 midnights. Attending attestation: I evaluated and examined the patient in person; I discussed the care with Resident in detail and agree with the plan above. VS, I&O, 24H, Fishbone Vital Signs/I&O Vital Signs Date Time Temp Pulse Resp B/P (MAP) Pulse Ox O2 Delivery O2 Flow Rate FiO2 07/23/19 09:00 93 Room Air 07/23/19 08:52 82 95/42 (59) 07/23/19 06:00 98.7 20 I&O- Last 24 Hours up to 6 AM 07/23/19 06:00 Intake Total 1185 ml Output Total 901 ml Balance 284 ml Laboratory Data 24H LABS Laboratory Tests 2 07/23/19 06:22: Anion Gap 3L, Glomerular Filtration Rate 34.3L, Calcium Level 8.6L, Total Bi lirubin 0.6, Aspartate Amino Transf (AST/SGOT) 23, Alanine Aminotransferase (ALT/SGPT) 15, Alkaline Phosphatase 93, Total Protein 5.8L, Albumin 1.9L, Albumin/Globulin Ratio 0.5L CBC/BMP Laboratory Tests 07/23/19 06:22 Microbiology Microbiology 07/22/19 Gastrointestinal Tract Panel (PCR) - Final, Complete Clostridium Difficile A/B 07/20/19 Urine Culture - Final, Complete Escherichia Coli LAMAR CANO D.O. July 23, 2019 14:11 JOHNNY BENNETT MD July 23, 2019 22:04
[2019-07-23 14:37] LABS: HEMATOCRIT 28.5 % (36.0-47.0); MEAN CORPUSCULAR HEMOGLOBIN 29.4 pg (27.0-33.0); MEAN CORPUSCULAR HGB CONC 31.6 g/dl (32.0-36.5); MEAN CORPUSCULAR VOLUME 93.1 fl (80.0-96.0); PLATELET COUNT, AUTOMATED 164 10^3/uL (150-450); RED BLOOD COUNT 3.06 10^6/uL (4.00-5.40)
[2019-07-23 22:00] VITALS: BP 103/48
[2019-07-24] MEDS: SUCRALFATE 1 GM TAB PO SCH ×4 (05:15→23:32)
[2019-07-24 06:00] VITALS: BP 102/48
[2019-07-24 06:19] LABS: HEMATOCRIT 28.1 % (36.0-47.0); HEMOGLOBIN 8.9 g/dl (12.0-15.5); MEAN CORPUSCULAR HEMOGLOBIN 29.3 pg (27.0-33.0); MEAN CORPUSCULAR HGB CONC 31.7 g/dl (32.0-36.5); MEAN CORPUSCULAR VOLUME 92.4 fl (80.0-96.0); PLATELET COUNT, AUTOMATED 161 10^3/uL (150-450); RED BLOOD COUNT 3.04 10^6/uL (4.00-5.40); WHITE BLOOD COUNT 6.1 10^3/uL (4.0-10.0)
[2019-07-24 06:48] LABS: ALBUMIN 1.8 GM/DL (3.2-5.2); BILIRUBIN,TOTAL 0.3 MG/DL (0.2-1.0); CALCIUM LEVEL 8.4 MG/DL (8.8-10.2); CREATININE FOR GFR 1.46 MG/DL (0.55-1.30); GLOMERULAR FILTRATION RATE 36.8 (>39); POTASSIUM SERUM 4.1 MEQ/L (3.5-5.1); TOTAL PROTEIN 5.6 GM/DL (6.4-8.2)
[2019-07-24] MEDS: MULTIVITAMINS/MINERALS THERAP 1 TAB PO SCH (08:40)
[2019-07-24] MEDS: PILOCARPINE 1% OPHTH SOLN 15 ML OS SCH ×4 (08:40→20:17)
[2019-07-24] MEDS: CALCIUM/VITAMIN D 500 MG TAB PO SCH (08:40)
[2019-07-24] MEDS: PANTOPRAZOLE 40MG TAB (PROTONIX) PO SCH ×2 (08:40→20:16)
[2019-07-24] MEDS: FIDAXOMICIN 200 MG TAB (DIFICID) PO SCH ×2 (08:40→20:16)
[2019-07-24] MEDS: HEPARIN SOD (PORCINE) 5000UNITS/ML VIAL (J1644 PER 1000UNITS) SC SCH ×2 (08:40→20:16)
[2019-07-24] MEDS: ASCORBIC ACID 250 MG TAB PO SCH (08:40)
[2019-07-24] MEDS ORDERED: DIFI200T PO (08:50)
[2019-07-24] MEDS ORDERED: FUROSEMIDE 40 MG TAB PO SCH (09:00)
[2019-07-24 14:00] VITALS: BP 110/48
[2019-07-24 21:55] VITALS: O2SAT 92
[2019-07-24 22:00] VITALS: BP 112/57
--- NOTE | 2019-07-24 22:15 | IPNPDOC ---
Date Seen The patient was seen on 07/24/19. Progress Note SUBJECTIVE: Ramon was seen and examined this morning while sitting upright in bed. She reports three episodes of diarrhea since we last examined her yesterday. She states that each episode wasn't completely watery like previous days, but had some formed stool to it. She continues to eat and drink without any issues and denies any abdominal pain or discomfort. She currently denies any fever, chills, night sweats, chest pain, chest pressure, palpitations, sob, cough, nausea, or vomiting. Background: This is a 78yo female w/ h/o GI bleeds (most recently upper GIB last mo)/severe GERD/erosive esophagitis with ulceration, bronchiectasis (with prior Pseudomonas), CKD III, chronic anemia, thrombocytopenia, and iron deficiency anemia who presented to the ED on the advice of her PCP with chief complaints of abdominal distention and bilateral lower extremity swelling. Admitted for fluid overload 2/2 liver cirrhosis with accompanying DARLINE on CKD III possibly 2/2 hepatorenal syndrome, bullous COPD, and chronic UTI. OBJECTIVE PHYSICAL EXAMINATION: VITAL SIGNS: Please see below. GENERAL APPEARANCE: Pleasant elderly female lying upright in bed. No acute distress. Alert and oriented 3. HEENT: Normocephalic, atraumatic. Wearing eyeglasses. Pupils are not round bilaterally with some diminished reactivity to light and accommodation. Noninjected sclera with some mild scleral icterus. Upper dentures in place with no lower teeth. No pharyngeal erythema or exudate. Mild jaundice. CARDIOVASCULAR: Regular rate, regular rhythm. +S1, S2 with no appreciable gallops or rubs. No carotid bruits appreciated. LUNGS: Audible wet sounding lungs. Diffuse bilateral crackles posteriorly. Symmetric chest expansion. Speaking full sentences. Breathing room air. Expectorated quarter-sized baeza sputum sample ABDOMEN: Distension still present but improved from admission four days ago. Tenderness of the right upper quadrant and guarding. + Fleming's Sign. No rigidity. Normoactive bowel sounds heard throughout. EXTREMITIES: 1+ bilateral pitting edema. No calf tenderness. NEUROLOGICAL: Awake, alert and oriented 3. No focal neurologic deficits appreciated. Non-dysarthric speech. Responded properly to questions and commands. PSYCHIATRIC: Mood and affect appear appropriate. LABORATORY DATA, IMAGING STUDIES, MICROBIOLOGY: Please see below. Echocardiogram, 07/22/19: Impression- Normal sinus rhythm without intraventricular conduction disturbance. M-mode and two-dimensional echocardiography was performed with pulsed, continuous wave, color flow, and tissue Doppler studies. Normal left ventricular size, wall thickness, and hyperkinetic wall motion. Normal left atrial size with grade 1 left ventricle (LV) diastolic dysfunction in keeping with her age with currently normal estimated mean left atrial pressure. Normal right heart chamber sizes and motion with Doppler sign of borderline pulmonary hypertension. Normal inferior vena cava (IVC) size. The degree of collapse could not be well visualized, so we estimated her central venous pressure at 10 mmHg. Mild aortic valvular sclerosis without functional abnormality. Mildly thickened mitral annulus with normal leaflet excursion and very mild insufficiency (physiologic). Normal appearing tricuspid valve with trace insufficiency. No apparent intracardiac mass or pericardial effusion. LVEF: 75% PCWP: 14 mmHg DVT prophylaxis ordered?: Yes; hep sc ASSESSMENT AND PLAN: This is a 78yo female w/ h/o GI bleeds (most recently upper GIB last mo)/severe GERD/erosive esophagitis with ulceration, bronchiectasis (with prior Pseudomonas), CKD III, chronic anemia, thrombocytopenia, and iron deficiency anemia who presented to the ED on the advice of her PCP with chief complaints of abdominal distention and bilateral lower extremity swelling. Admitted for fluid overload 2/2 liver cirrhosis and possible hepatorenal syndrome with accompanying DARLINE on CKD III, bullous COPD, and chronic UTI. #Fluid overload 2/2 liver cirrhosis and CKD III, possible hepatorenal process developing -Improving on a daily basis; we will resume PO 40mg qd furosemide today -Results of the echo yesterday showed borderline pulmonary hypertension with EF 75% and no significant right-sided chamber pathology; therefore prevailing initial thought of pulmonary hypertension causing right heart failure as contributor to her fluid overload is unlikely at this point -IV Lasix were held previous two days for hypotension and patient's serum creatinine improved from 1.98 to 1.55; after reviewing echo results, plan was to transition to oral furosemide and to decrease dosing. As mentioned above, initiating 40mg po lasix today. -no added salt diet ordered #Ascites likely 2/2 liver cirrhosis from imaging -Liver ultrasound from 07/19 showed: "Cirrhotic liver with moderate ascites. 2.5 cm gallstone. Thickened gallbladder wall at 4-5 mm is nonspecific and could be secondary to hepatopathy or chronic cholecystitis however underlying acute cholecystitis cannot be completely excluded. If indicated HIDA scan may be ob tained for further evaluation." -Patient has denied current, or past, significant EtOH use -PT eval to assess for ambulatory status and optimization of physical conditioning prior to discharge -Albumin decreased at 1.9, otherwise, hepatitis-related labs unremarkable -Patient's abdominal discomfort/distention is improved from admission three days ago, therefore, therapeutic paracentesis is deferred at this time #Acute kidney injury on CKD III, possibly 2/2 hepatorenal syndrome -sCr improved to 1.55 from 1.98 yesterday; this is likely 2/2 held lasix dosing. Due to improved sCr, PO lasix will be held again today with -echo showed no significant right-sided heart failure, IV Lasix subsequently discontinued. -plan to d/c IV lasix and switch to PO 40mg qd beginning -avoid nephrotoxic meds -am BMP ordered #Bullous COPD vs bronchiectasis and extensive cystic changes from imaging -Sputum Cx: +Pseudomonas -colonized with Pseudomonas during most recent admission from 06/19-06/27/19 -lung pathology on imaging is significant but unchanged from admission last month -home albuterol inhaler continued -xopenex prn nebs ordered due to tachycardia -O2 titration orders 88-92% #C. difficile infection -positive for C. diff on GI panel from 07/20; likely the same strain of C diff from last month and not a recurrence d/t incomplete ABx duration -during admission last month was also C. diff positive; was resistant to vanc and subsequently took 2 days of Dificid but did not fully complete 8 remaining days after discharge -worked extensively today with social work to procure more reasonably priced dificid for outpt use, but ultimately not a possibility at this time -extensively discussed with pt and pt's daughter this afternoon (Adriane Arora) importance of completing dificid dosing this time around and the associated risks with not doing so - - pt will remain as inpatient until final day of dosing (07/31) for monitoring and to ensure competion -Dificid bid for 10 days initiated on 07/22 -Isolation precautions #Chronic UTI -positive leuk esterase, 1+ uBacteria; UCx +E. coli -has history of chronic colonization on prior UA -continues to remain asymptomatic; pharmacotherapy not warranted at this time #Chronic anemia with h/o chronic thrombocytopenia -normocytic anemia; possibly secondary to liver cirrhosis; continue to follow CBC #History of GIB -admitted last month (06/19-06/26) for upper GI bleed -recent history of medical non-compliance when it comes to taking her home PPI and sucralfate -home pantoprazole continued #History of severe GERD and erosive esophagitis with ulceration -Home pantoprazole continued for now; pt has no reflux complaints, potentially could de-escalate or d/c since PPI meds are known potential rn ante partum of C. diff #DVT prophylaxis: sc heparin q12h; Lovenox deferred d/t pt's renal compromise Disposition: inpatient until 07/31 completion of dificid dosing Attending attestation: I evaluated and examined the patient in person; I discussed the care with Resident in detail and agree with the plan above. VS, I&O, 24H, Fishbone Vital Signs/I&O Vital Signs Date Time Temp Pulse Resp B/P (MAP) Pulse Ox O2 Delivery O2 Flow Rate FiO2 07/24/19 14:00 97.4 67 21 110/48 (68) 98 Room Air I&O- Last 24 Hours up to 6 AM 07/24/19 06:00 Intake Total 1680 ml Output Total 700 ml Balance 980 ml Laboratory Data 24H LABS Laboratory Tests 2 07/24/19 06:01: Nucleated Red Blood Cells % (auto) 0.0, Anion Gap 3L, Glomerular Filtration Rate 36.8L, Calcium Level 8.4L, Total Bilirubin 0.3, Aspartate Amino Transf (AST/SGOT) 19, Alanine Aminotransferase (ALT/SGPT) 13, Alkaline Phosphatase 87, Total Protein 5.6L, Albumin 1.8L, Albumin/Globulin Ratio 0.5L CBC/BMP Laboratory Tests 07/24/19 06:01 Microbiology Microbiology 07/23/19 Gram Stain - Final, Resulted 07/23/19 Sputum Culture, Resulted Pending 07/22/19 Gastrointestinal Tract Panel (PCR) - Final, Complete Clostridium Difficile A/B 07/20/19 Urine Culture - Final, Complete Escherichia Coli LAMAR CANO D.O. July 24, 2019 22:15 JOHNNY BENNETT MD Aug 01, 2019 20:20
[2019-07-25] MEDS: SUCRALFATE 1 GM TAB PO SCH (05:35)
[2019-07-25 05:53] LABS: HEMATOCRIT 27.7 % (36.0-47.0); HEMOGLOBIN 8.7 g/dl (12.0-15.5); MEAN CORPUSCULAR HGB CONC 31.4 g/dl (32.0-36.5); MEAN CORPUSCULAR VOLUME 92.3 fl (80.0-96.0); PLATELET COUNT, AUTOMATED 155 10^3/uL (150-450); WHITE BLOOD COUNT 6.1 10^3/uL (4.0-10.0)
[2019-07-25 06:00] VITALS: BP 108/53
[2019-07-25 06:18] LABS: ALBUMIN 1.9 GM/DL (3.2-5.2); BILIRUBIN,TOTAL 0.6 MG/DL (0.2-1.0); CALCIUM LEVEL 8.6 MG/DL (8.8-10.2); CREATININE FOR GFR 1.39 MG/DL (0.55-1.30); GLOMERULAR FILTRATION RATE 38.9 (>39); POTASSIUM SERUM 4.3 MEQ/L (3.5-5.1); TOTAL PROTEIN 5.6 GM/DL (6.4-8.2)
[2019-07-25 07:21] LABS: HEPATITIS B SURFACE ANTIGEN NEGATIVE (NEGATIVE)
[2019-07-25 07:48] LABS: HEPATITIS B CORE ANTIBODY IGM NEGATIVE (NEGATIVE); HEPATITIS C VIRUS ABY INDEX 0.1 INDEX (<0.8)
[2019-07-25 07:51] LABS: HEPATITIS A ANTIBODY IGM NEGATIVE (NEGATIVE)
[2019-07-25] MEDS ORDERED: FUROSEMIDE 40 MG TAB PO SCH (09:00)
[2019-07-25] MEDS: HEPARIN SOD (PORCINE) 5000UNITS/ML VIAL (J1644 PER 1000UNITS) SC SCH (09:57)
[2019-07-25] MEDS: CALCIUM/VITAMIN D 500 MG TAB PO SCH (09:57)
[2019-07-25] MEDS: MULTIVITAMINS/MINERALS THERAP 1 TAB PO SCH (09:57)
[2019-07-25] MEDS: FIDAXOMICIN 200 MG TAB (DIFICID) PO SCH (09:57)
[2019-07-25] MEDS: ASCORBIC ACID 250 MG TAB PO SCH (09:57)
[2019-07-25] MEDS: PANTOPRAZOLE 40MG TAB (PROTONIX) PO SCH (09:57)
[2019-07-25] MEDS: PILOCARPINE 1% OPHTH SOLN 15 ML OS SCH (09:58)
[2019-07-25] MEDS ORDERED: DIFI200T PO (10:09)
[2019-07-25 10:56] VITALS: O2SAT 95
[2019-07-25] MEDS ORDERED: FURO40TA2 PO (11:39)
[2019-07-26] MEDS ORDERED: FURO40TA2 PO (13:15)
--- NOTE | 2019-08-01 17:40 | DS.PDOC ---
Discharge Summary General Date of Admission July 20, 2019 at 19:49 Date of Discharge Thursday, July 25, 2019 Primary Care Physician: MOHINI COLIN MD Attending Physician: JOHNNY BENNETT MD Discharge Summary PROCEDURES PERFORMED DURING STAY: [None]. ADMITTING DIAGNOSES: - DISCHARGE DIAGNOSES: - COMPLICATIONS/CHIEF COMPLAINT: CHF HISTORY OF PRESENT ILLNESS & HOSPITAL COURSE: Ramon is a 78-year-old female with PMHx of CKD III, bronchiectasis (prior documented Pseudomonas colonization), chronic thrombocytopenia, chronic iron deficiency anemia, history of GI bleeds with severe GERD, erosive esophagitis with ulceration, and history of C. difficile colitis, who presented to the ED from home on 07/20/19 after being told to do so by her PCP. Patient was recently admitted in the last week of May 2019 (06/19-06/26) to [facility] for acute upper GI bleed with acute blood loss anemia and subsequent contraction of C. difficile colitis during her inpatient stay. Upon discharge, patient had [facility] home health ordered. On her home health visit today, she reports her blood pressure was low and the home health nurse contacted her PCP. Also, since the time of her discharge last month, she complains of progressively worsening lower extremity edema with recent abdominal discomfort and bloating. On presentation today, she also endorsed accompanying mild central chest pressure, overlying her sternum In the ED, she was found to have her chronic normocytic anemia, acute DARLINE (sCr 1.52; bl 1.1-1.2) on CKD III (gfr 33%), elevated alkaline phosphatase (119), low albumin (2.4), and an UTI. Imaging showed a significant amount of ascites that has worsened with changes of the liver suspicious of cirrhosis; as well as bronchiectasis of the right middle and lower lobes with significant cystic changes throughout the entire left lung. 8. Bilateral duplex lower extremity venous ultrasound showed no evidence of deep vein thrombosis. Patient was given a one-time IV 40 mg furosemide administration. Patient was subsequently admitted under the care of the hospitalist service for fluid overload and further workup as we monitor her fluid status moving forward. S patient was further evaluated during her inpatient stay, a liver ultrasound showed severe cirrhosis and an echocardiogram did not reveal pulmonary hypertension or either right or left heart failure. The presumed cause of her ascites and swelling was first thought to be due to right heart failure, but these images studies showed that her edema and ascites is most likely related to the cirrhosis and subsequent acute kidney injury 2/2 CKD III. She may have the early signs of hepatorenal syndrome and should be monitored for this. Upon outpatient follow-up with primary care physician. She also tested positive for C. difficile on GI panel, which was believed to be the same infection that she had during her inpatient stay last month. Patient did not complete her outpatient oral antibiotics for the C. difficile infection and we believe subsequently that this infection lingered and was causing her diarrhea and associated GI complaints on top of the aforementioned ascites. She began oral vancomycin treatment for the C. difficile while inpatient, completing 3 days. It was then found that deficit would be covered and she would not have to pay the exorbitant allen as an outpatient, and this was discharged with instructions to pickler helper the deficit prescription at her pharmacy. As far as her DARLINE on CKD III, her serum creatinine improved with holding of initial Lasix that were given. She will then be discharged with daily 40 mg oral furosemide tablets to assist in fluid retention secondary to her liver cirrhosis and chronic kidney disease, stage III. 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 Sputum culture grew Pseudomonas. This is likely an indolent infection that'll be difficult for her to fully clear and compromises her respiratory function at baseline. She also once again had a positive UTI, which corresponds with chronic UTI on previous admissions. Due to the fact that this is a chronic colonization and she remained asymptomatic during this hospital stay, pharmacotherapy was not warranted. In addition, she exhibited her chronic no rmocytic anemia that potentially could be secondary to liver cirrhosis. DISCHARGE MEDICATIONS: Please see below. ALLERGIES: Please see below. PHYSICAL EXAMINATION ON DISCHARGE: VITAL SIGNS: Please see below. GENERAL APPEARANCE: Pleasant elderly female lying upright in bed. No acute distress. Alert and oriented 3. HEENT: Normocephalic, atraumatic. Wearing eyeglasses. Pupils are not round bilaterally with some diminished reactivity to light and accommodation. Noninjected sclera with some mild scleral icterus. Upper dentures in place with no lower teeth. No pharyngeal erythema or exudate. Mild jaundice. CARDIOVASCULAR: Regular rate, regular rhythm. +S1, S2 with no appreciable gallops or rubs. No carotid bruits appreciated. LUNGS: Audible wet sounding lungs. Diffuse bilateral crackles posteriorly. Symmetric chest expansion. Speaking full sentences. Breathing room air. Expectorated quarter-sized baeza sputum sample ABDOMEN: Distension still present but improved from admission four days ago. Tenderness of the right upper quadrant and guarding. + Fleming's Sign. No rigidity. Normoactive bowel sounds heard throughout. EXTREMITIES: 1+ bilateral pitting edema. No calf tenderness. NEUROLOGICAL: Awake, alert and oriented 3. No focal neurologic deficits appreciated. Non-dysarthric speech. Responded properly to questions and commands. PSYCHIATRIC: Mood and affect appear appropriate. LABORATORY DATA: Please see below. IMAGING: CT abdomen/pelvis w/o contrast, 07/20/19: Since the last examination, a large degree of ascites has developed. There are changes seen involving the liver, highly suspicious for cirrhosis, correlate clinically. Chronic changes seen involving the pancreas and kidneys, as described above and previously. Concomitant pancreatitis should be clinically evaluated for. CT chest without contrast, 07/20/19: Extensive cystic changes are seen throughout the left lung unchanged. Bronchiectasis in the right middle and lower lobes centrally is unchanged. There is diffuse moderate fibrosis throughout the right lung, more so peripherally. This appears unchanged. There is no new infiltrate identified in the right lung. There is shift of the heart and mediastinal structures to the left with volume loss of the left hemithorax. The heart does not appear to be significantly enlarged. There is no pericardial effusion. There appears to be subcarinal adenopathy unchanged. There is a large hiatal hernia. There are degenerative changes of the spine. There is upper abdominal ascites noted. IMPRESSION: Stable chronic changes of the chest with no evidence of acute infiltrate. Duplex bilateral lower extremity venous ultrasound, 07/20/19: Impression negative bilateral lower extremity duplex venous ultrasound. No evidence of deep vein thrombosis. Right upper quadrant (liver) ultrasound, 07/21/19: Cirrhotic liver with moderate ascites. 2.5 cm gallstone. Thickened gallbladder wall at 4-5 mm is nonspecific and could be secondary to hepatopathy or chronic cholecystitis however underlying acute cholecystitis cannot be completely excluded. If indicated HIDA scan may be obtained for further evaluation. Echocardiogram, 07/22/19: Impression- Normal sinus rhythm without intraventricular conduction disturbance. M-mode and two-dimensional echocardiography was performed with pulsed, continuous wave, color flow, and tissue Doppler studies. Normal left ventricular size, wall thickness, and hyperkinetic wall motion. Normal left atrial size with grade 1 left ventricle (LV) diastolic dysfunction in keeping with her age with currently normal estimated mean left atrial pressure. Normal right heart chamber sizes and motion with Doppler sign of borderline pulmonary hypertension. Normal inferior vena cava (IVC) size. The degree of collapse could not be well visualized, so we estimated her central venous pressure at 10 mmHg. Mild aortic valvular sclerosis without functional abnormality. Mildly thickened mitral annulus with normal leaflet excursion and very mild insufficiency (physiologic). Normal appearing tricuspid valve with trace insufficiency. No apparent intracardiac mass or pericardial effusion. LVEF: 75% PCWP: 14 mmHg PROGNOSIS: Fair ACTIVITY: As tolerated DIET: Limit carbonated beverages and acidic foods due to h/o erosive esophagitis; otherwise, as tolerated DISPOSITION: Home Health Service. DISCHARGE INSTRUCTIONS & ITEMS TO FOLLOWUP ON ON OUTPATIENT: -Fidaxomicin (dificid) will be available upon your discharge at your pharmacy ([facility]) C's. Please take Dificid daily for the next 7 days to complete treatment for Clostrioides difficile infection. -Follow-up with primary care physician (Dr. Colin) in the next 7-10 days. -Take 40 mg daily of oral furosemide as detailed in prescription sent to [facility]. -Should presenting symptoms recur, and/or acutely worsen, or should you experience an acute medical emergency of any kind, you are to return to the emergency department as soon as possible. DISCHARGE CONDITION: Stable TIME SPENT ON DISCHARGE: Greater than 35 minutes. Attending attestation: I evaluated and examined the patient in person; I discussed the care with Resident in detail and agree with the plan above. Microbiology Microbiology 07/23/19 Gram Stain - Final, Complete 07/23/19 Sputum Culture - Final, Complete Pseudomonas Aeruginosa Mucoid 07/22/19 Gastrointestinal Tract Panel (PCR) - Final, Complete Clostridium Difficile A/B Discharge Medications Scheduled Ascorbic Acid (Vitamin C) 250 Mg Tab, 250 MG PO DAILY, (Reported) Calcium Carbonate/Vitamin D3 (Oyster Shell 500-Vit D3 200 Tb) 1 Tab Tab, 1 TAB PO DAILY, (Reported) Fidaxomicin (Dificid) 200 Mg Tablet, 200 MG PO BID Furosemide (Furosemide) 40 Mg Tablet, 40 MG PO DAILY Furosemide (Furosemide) 40 Mg Tablet, 1 TAB PO DAILY Multivitamins (Thera M Plus Tablet) 1 Tab Tab, 1 TAB PO DAILY, (Reported) Pantoprazole Sodium (Pantoprazole Sodium) 40 Mg Tablet.dr, 40 MG PO BID, (Reported) Pilocarpine HCl (Pilocarpine HCl) 1% 15ML Drops, 1 DROP OS QID, (Reported) Sucralfate (Sucralfate) 1 Gm Tablet, 1 GM PO Q6H, (Reported) Scheduled PRN Albuterol Sulf (Albuterol Sulfate) 2.5 Mg/3 Ml Nebu, 2.5 MG INH QID PRN for SHORTNESS OF BREATH, (Reported) Allergies Coded Allergies: bimatoprost (Verified Allergy, Intermediate, EYE REDNESS, 12/05/18) cephalexin (Unverified Allergy, Unknown, 07/20/19) doxycycline (Unverified Allergy, Unknown, 07/20/19) levofloxacin (Unverified Allergy, Unknown, 07/20/19) latanoprost (Verified Adverse Reaction, Intermediate, EYE PAIN HEART RACING, 07/20/19) travoprost (Verified Adverse Reaction, Intermediate, EYE PAIN HEART RACING, 07/20/19) Sulfa (Sulfonamide Antibiotics) (Verified Adverse Reaction, Mild, GI ISSUES, 07/20/19) brimonidine (Verified Adverse Reaction, Mild, 07/20/19) diclofenac (Verified Adverse Reaction, Mild, VOMITS, 07/20/19) dorzolamide (Verified Adverse Reaction, Mild, CONGESTED,COUGH, 07/20/19) moxifloxacin (Verified Adverse Reaction, Mild, DIARRHEA, 12/05/18) timolol (Verified Adverse Reaction, Mild, CONGESTED,COUGH, 07/20/19) LAMAR CANO D.O. Aug 01, 2019 17:40 JOHNNY BENNETT MD Aug 03, 2019 00:23
== END 2019-07-25 12:27 | disposition home health service (06) | DRG 682 ==
LOC: M ED 13:40 → M ED INP 19:49 → ENRESERV 20:24 → M MSPAV 21:36
PROVIDERS: ADMIT Internal Medicine; ATTEND Internal Medicine
DX: N17.9 Acute kidney failure, unspecified (principal); K76.7 Hepatorenal syndrome; N39.0 Urinary tract infection, site not specified; R18.8 Other ascites; K22.10 Ulcer of esophagus without bleeding; I13.0 Hypertensive heart and chronic kidney disease with heart failure and stage 1 through stage 4 chronic kidney disease, or unspecified chronic kidney disease; A04.72 Enterocolitis due to Clostridium difficile, not specified as recurrent; N18.3 Chronic kidney disease, stage 3 (moderate); D50.9 Iron deficiency anemia, unspecified; I50.82 Biventricular heart failure; B96.20 Unspecified Escherichia coli [E. coli] as the cause of diseases classified elsewhere; R74.8 Abnormal levels of other serum enzymes; E88.09 Other disorders of plasma-protein metabolism, not elsewhere classified; J47.9 Bronchiectasis, uncomplicated; I27.20 Pulmonary hypertension, unspecified; K74.60 Unspecified cirrhosis of liver; K57.30 Diverticulosis of large intestine without perforation or abscess without bleeding; D69.6 Thrombocytopenia, unspecified; K21.0 Gastro-esophageal reflux disease with esophagitis; Z98.41 Cataract extraction status, right eye; Z98.42 Cataract extraction status, left eye; Z79.899 Other long term (current) drug therapy; Z88.1 Allergy status to other antibiotic agents; Z88.2 Allergy status to sulfonamides; Z88.8 Allergy status to other drugs, medicaments and biological substances

== ENCOUNTER → 2019-08-02 | Outpatient (REF) | payer MEDICARE ==
[~2019-08-02] MED LIST changes: +FURO40TA2 PO; +SUCR1TAB56 PO
[2019-08-02 12:14] LABS: HEMOGLOBIN 9.8 g/dl (12.0-15.5); MEAN CORPUSCULAR HEMOGLOBIN 29.6 pg (27.0-33.0); MEAN CORPUSCULAR HGB CONC 31.6 g/dl (32.0-36.5); MEAN CORPUSCULAR VOLUME 93.7 fl (80.0-96.0); PLATELET COUNT, AUTOMATED 212 10^3/uL (150-450); RED BLOOD COUNT 3.31 10^6/uL (4.00-5.40); WHITE BLOOD COUNT 8.5 10^3/uL (4.0-10.0)
[2019-08-02 12:34] LABS: ALBUMIN 2.6 GM/DL (3.2-5.2); BILIRUBIN,TOTAL 0.7 MG/DL (0.2-1.0); CALCIUM LEVEL 8.6 MG/DL (8.8-10.2); CREATININE FOR GFR 1.71 MG/DL (0.55-1.30); GLOMERULAR FILTRATION RATE 30.7 (>39); POTASSIUM SERUM 3.8 MEQ/L (3.5-5.1); TOTAL PROTEIN 7.2 GM/DL (6.4-8.2)
== END ==
LOC: M SFHCPLAZ 08:33
PROVIDERS: ATTEND Family Medicine
DX: N18.3 Chronic kidney disease, stage 3 (moderate) (principal); I50.32 Chronic diastolic (congestive) heart failure; K74.60 Unspecified cirrhosis of liver

== ENCOUNTER → 2019-08-16 | Outpatient (REF) | payer MEDICARE ==
[2019-08-16 11:23] LABS: HEMATOCRIT 33.4 % (36.0-47.0); HEMOGLOBIN 10.4 g/dl (12.0-15.5); MEAN CORPUSCULAR HEMOGLOBIN 29.1 pg (27.0-33.0); MEAN CORPUSCULAR HGB CONC 31.1 g/dl (32.0-36.5); MEAN CORPUSCULAR VOLUME 93.6 fl (80.0-96.0); PLATELET COUNT, AUTOMATED 187 10^3/uL (150-450); RED BLOOD COUNT 3.57 10^6/uL (4.00-5.40); WHITE BLOOD COUNT 7.6 10^3/uL (4.0-10.0)
[2019-08-16 11:24] LABS: CALCIUM LEVEL 9.6 MG/DL (8.8-10.2); CREATININE FOR GFR 1.63 MG/DL (0.55-1.30); GLOMERULAR FILTRATION RATE 32.4 (>39); POTASSIUM SERUM 4.2 MEQ/L (3.5-5.1)
== END ==
LOC: M SFHCPLAZ 07:58
PROVIDERS: ATTEND Family Medicine
DX: N18.3 Chronic kidney disease, stage 3 (moderate) (principal); D63.8 Anemia in other chronic diseases classified elsewhere

== ENCOUNTER → 2019-08-29 | Outpatient (CLI) | payer MEDICARE ==
[2019-08-29 13:20] LABS: BASO % 0.3 % (0.0-1.0); EOS # 0.4 10^3/uL (0.0-0.5); EOS % 3.8 % (0.0-3.0); HEMATOCRIT 32.8 % (36.0-47.0); LYMPH # 2.3 10^3/uL (1.5-5.0); LYMPH % 23.8 % (24.0-44.0); MEAN CORPUSCULAR HEMOGLOBIN 28.2 pg (27.0-33.0); MEAN CORPUSCULAR HGB CONC 30.5 g/dl (32.0-36.5); MEAN CORPUSCULAR VOLUME 92.7 fl (80.0-96.0); MONO # 0.9 10^3/uL (0.0-0.8); MONO % 9.7 % (0.0-5.0); NEUTROPHILS # 5.9 10^3/uL (1.5-8.5); PLATELET COUNT, AUTOMATED 224 10^3/uL (150-450); RED BLOOD COUNT 3.54 10^6/uL (4.00-5.40); WHITE BLOOD COUNT 9.5 10^3/uL (4.0-10.0)
[2019-08-29 13:33] LABS: INR 1.18; PROTHROMBIN TIME 14.7 SECONDS (11.8-14.0)
[2019-08-29 13:41] LABS: ALBUMIN 2.8 GM/DL (3.2-5.2); ALT/SGPT 23 U/L (12-78); BILIRUBIN,DIRECT 0.2 MG/DL (0.0-0.2); BILIRUBIN,TOTAL 0.4 MG/DL (0.2-1.0); IRON (FE) 46 UG/DL (50-170); PERCENT SATURATION 19.1 % (13.2-45.0); TOTAL IRON BINDING CAPACITY 241 UG/DL (250-450); TOTAL PROTEIN 7.8 GM/DL (6.4-8.2)
[2019-08-29 14:02] LABS: HEPATITIS B SURFACE ANTIGEN NEGATIVE (NEGATIVE)
[2019-08-29 14:29] LABS: HEPATITIS B CORE ANTIBODY IGM NEGATIVE (NEGATIVE); HEPATITIS C VIRUS ABY INDEX 0.2 INDEX (<0.8)
[2019-08-29 14:32] LABS: HEPATITIS A ANTIBODY IGM NEGATIVE (NEGATIVE)
[2019-09-03 16:08] LABS: ANCA-ATYPICAL <1:20 titer (Neg:<1:20); ANTI-MITOCHONDRIAL ANTIBODY <20.0 Units (0.0-20.0); ANTINUCLEAR ANTIBODIES DIRECT Negative (Negative); CYTOPLASMIC NEUTROP AB ANCA-C <1:20 titer (Neg:<1:20); LIVER-KIDNEY MICROSOMAL ABY <20.1 Units (0.0-20.0); PERINUCLEAR AB ANCA-P <1:20 titer (Neg:<1:20); TISSUE TRANSGLUTAMINASE IgA <2 U/mL (0-3)
== END ==
LOC: M LAB 12:01
PROVIDERS: ATTEND Internal Medicine Gastroenterology
DX: K25.0 Acute gastric ulcer with hemorrhage (principal)

== ENCOUNTER → 2019-09-05 | Outpatient (REF) | payer MEDICARE ==
[~2019-09-05] MED LIST changes: +ASCO250T20 PO; +FERR325T3 PO; +PANT40TA29 PO; -PANT40TA3 PO; -VITA1TAB23 PO
[2019-09-05 18:32] LABS: PERCENT SATURATION 37.8 % (13.2-45.0)
== END ==
LOC: M LAB REF 17:53
PROVIDERS: ATTEND Internal Medicine Nephrology
DX: D50.9 Iron deficiency anemia, unspecified (principal)

== ENCOUNTER → 2019-09-15 | Outpatient (CLI) | payer MEDICARE | LOC: M LABSMTC 08:54 | PROVIDERS: ATTEND Anesthesiology | DX: Z01.818 Encounter for other preprocedural examination (principal); Z11.59 Encounter for screening for other viral diseases | CPT/HCPCS: C9803; U0003 ==

== ENCOUNTER → 2019-09-20 | Day surgery (SDC) | payer MEDICARE ==
[~2019-09-20] VITALS: Ht 152.4 cm; Wt 45.4 kg
[~2019-09-20] MED LIST changes: -ASCO250T20 PO; +NS 1,000 ML IV ONE; -PANT40TA29 PO; +PANT40TA3 PO; +VITA1TAB23 PO
[2019-09-20 11:55] VITALS: BP 104/53
== END | disposition home or self-care (01) ==
LOC: M OPP 11:22
PROVIDERS: ATTEND Internal Medicine Gastroenterology
DX: K25.9 Gastric ulcer, unspecified as acute or chronic, without hemorrhage or perforation (principal); D64.9 Anemia, unspecified; Z88.0 Allergy status to penicillin; Z88.2 Allergy status to sulfonamides; Z88.8 Allergy status to other drugs, medicaments and biological substances; Z79.51 Long term (current) use of inhaled steroids; Z79.899 Other long term (current) drug therapy

== ENCOUNTER → 2020-03-19 | Outpatient (CLI) | payer MEDICARE ==
[~2020-03-19] MED LIST changes: +ASCO250T20 PO; -NS 1,000 ML IV ONE; +PANT40TA29 PO; -PANT40TA3 PO; -VITA1TAB23 PO
--- NOTE | 2020-03-19 08:23 | REP ---
INDICATION: CIRRHOSIS COMPARISON: 07/21/2019 TECHNIQUE: Real time perrin scale ultrasound examination using curved array transducer. FINDINGS: Liver demonstrates heterogeneous coarsened echotexture and there appears to be a new 11 x 7 x 5 mm solid mass in the right lobe adjacent to the posterior portal vein which is not on prior exam. Pancreas is incompletely evaluated due to interposed bowel gas but visualized portions appear normal. The gallbladder demonstrates multiple mobile gallstones without wall thickening or pericholecystic fluid. No biliary ductal dilatation is appreciated and the common bile duct measures 4.1 mm diameter. Right kidney demonstrates age-related changes without hydronephrosis and measures 8.2 x 4.8 x 4.4 cm. Scattered echogenic foci likely represent renovascular calcifications. No ascites in the visualized right upper quadrant. IMPRESSION: 1. Coarsened hepatic echotexture consistent with the given history of cirrhosis. 2. New 11 mm hepatic mass suggested in the posterior segment right hepatic lobe warrants pre and postcontrast CT for further investigation. <Electronically signed by Marcelo Chapin > 03/19/20 [id number]
== END ==
LOC: M RAD 07:13
PROVIDERS: ATTEND Internal Medicine Gastroenterology
DX: K74.60 Unspecified cirrhosis of liver (principal); K76.6 Portal hypertension; I85.00 Esophageal varices without bleeding; K76.89 Other specified diseases of liver

== ENCOUNTER → 2020-04-10 | Outpatient (CLI) | payer MEDICARE ==
[~2020-04-10] MED LIST changes: +CARA1TAB6 PO; +FURO20TA2 PO
[2020-04-10 12:27] LABS: ALBUMIN 2.8 GM/DL (3.2-5.2); BILIRUBIN,DIRECT 0.2 MG/DL (0.0-0.2); BILIRUBIN,TOTAL 0.6 MG/DL (0.2-1.0); TOTAL PROTEIN 7.9 GM/DL (6.4-8.2)
[2020-04-10 17:19] LABS: CREATININE FOR GFR 1.68 MG/DL (0.55-1.30); GLOMERULAR FILTRATION RATE 31.2 (>32)
== END ==
LOC: M LAB 11:02
PROVIDERS: ATTEND Internal Medicine Gastroenterology
DX: K74.60 Unspecified cirrhosis of liver (principal)

== ENCOUNTER 2020-04-15 16:55 | Inpatient (IN) | payer MEDICARE ==
[~2020-04-15] VITALS: Ht 152.4 cm; Wt 56.8 kg
[~2020-04-15 16:55] MED LIST changes: -CARA1TAB6 PO; -FURO20TA2 PO
--- OUTSIDE RECORDS SUMMARY | 2020-04-15 17:07 | CCD | Continuity of Care Document ---
Author Author Ramon MENDOZA MD Organization Unknown Address [address] [place] [id number] Phone [phone] Care Team Providers Care Preschool Principal Name Role Phone DorydarlynPatti weinstein P.A.-C. AUTM Cindi Colin M.D. AUTM [phone] Problems Active Problems Provider Date Difficulty breathing Andrew Leo D.OJob Onset: 11/08/19 13 Underweight Andrew Leo D.OJob Onset: 1 Acute exacerbation of bronchiectasis Andrew Leo D.O. Onset: 04/07/2010 Cough Andrew Leo D.OJob Onset: 1 Bronchiolectasis Andrew Leo D.O. Onset: 1 Social History Type Date Description Comments Sex Unknown ETOH Use Never used alcohol Tobacco Use Start: Unknown Patient has never smoked Allergies, Adverse Reactions, Alerts Active Allergies Reaction Severity Comments Date Cosopt 04/12/2011 Lumigan 04/12/2011 Voltaren 04/12/2011 Travatan 04/12/2011 Xalatan 05/07/2014 Sulfamethoxazole 05/07/2014 Brimonidine 12/29/2016 Timolol Makes Her Congested 05/15/19 16 Levofloxacin 05/01/2014 Doxycycline 05/01/2014 Sulfamethoxazole / Trimethoprim 08/03/2011 Avelox 12/19/2008 Alphagan P 12/19/2008 Cephalexin 12/19/2008 Cotrim Eye Drop 12/19/2008 Medications Active Medications SIG Qnty Indications Ordering Provide r Date Pantoprazole Sodium 40mg Tablets D R 1 po q day 30tabs Andrew Mendoza MD 10/08/2019 Albuterol Sulfate (2 .5mg/3ML) 0.083% Nebulizer Use 1 Vial In Nebulizer 4 Times Daily as Needed 375units J47.9 Andrew Leo, 05/01/2014 Albuterol Sulfate (2 .5mg/3ML) 0.083% Nebulizer 1 vial via neb four times a day as needed 360units J47.9 Andrew Leo, DO 05/01/2014 Multivitamins Capsules qd Unknown Cranberry 300mg Capsules Unknown Ipratropium [place] 0.02% Solution 1 vial via neb four times a day Unknown 000 Lumigan 0.01% Solution Unknown Calcium 600+D [id number] Table ts 1 tab by mouth every day Unknown Furosemide 40mg Tablets 1/ 2 pill daily Unknown Immunizations CPT Code Status Date Vaccine Lot # [id number] Given 03/04/2014 Prevnar 13 21195 Given 01/02/2014 Influenza Virus Split 3 Yrs And Above For Intramuscular Use Q2036 Given 01/12/2012 Influenza Vaccine 3 Years Of Age Or Older (Flulaval) Q2036 Given 12/23/2010 Influenza Vaccine 3 Years Of Age Or Older (Flulaval) 70102 Given 01/14/2010 Influenza Virus Split 3 Yrs And Above For Intramuscular Use 84534 Given 11/26/2002 Pneumococcal PPSV23 Vital Signs Date Vital Result Comment 10/08/2019 10:54am BP Systolic 130 mmHg BP Diastolic 66 mmHg Height 59 inches 4'11" Weight 104.50 lb BMI (Body Mass Index) 21.1 kg/m2 [place] Body Weight 100 lb Weight 47.401 kg BSA (Body Surface Area) 1.40 m2 08/29/2019 10:32am BP Systolic 115 mmHg BP Diastolic 61 mmHg Height 59 inches 4'11" Weight 104.00 lb BMI (Body Mass Index) 21.0 kg/m2 [place] Body Weight 100 lb Weight 47.174 kg BSA (Body Surface Area) 1.40 m2 Results Test Acquired Date Facility Test Result H/L Range Note Laboratory test finding 09/20/2019 [facility] Main Lab [address] [place] [address] [phone] Pathology Request For Service (SEE NOTE) 1 Antinuclear Antibodies 08/29/2019 [facility] Main Lab [address] [place] [address] [phone] Antinuclear Antibodies Direct Negative Normal Ne gative 2 Laboratory test finding 08/29/2019 [facility] Main Lab [address] [place] [address] [phone] Anti-Mitochondrial Antibody <20.0 units Normal 0.0 -20.0 3 Total Iron Binding Capacit 08/29/2019 [facility] Main Lab [address] [place] [address] [phone] Iron (Fe) 46 g/dL Low 50-170 Total Iron Binding Capacity 241 g/dL Low 250-450 Percent Saturation 19.1 % Normal 13.2-45.0 Hepatitis Profile 08/29/2019 [facility] Main Lab [address] [place] [address] [phone] Hepatitis C Virus [place]ma Index 0.2 INDEX Normal <0.8 4 Hepatitis B Surface Antigen NEGATIVE Normal Negative Hepatitis B Core Antibody Igm NEGATIVE Normal Negative Hepatitis A Antibody Igm NEGATIVE Normal Negative Laboratory test finding 08/29/2019 [facility] Main Lab [address] [place] [address] [phone] Tissue Transglutaminase IgA <2 U/mL Normal 0-3 5 Immunoglobulin A 577.0 mg/dL High 70-400 Liver-Kidney Microsomal Zulema <20.1 units Normal 0.0-20.0 6 Liver Profile 08/29/2019 [facility] Main Lab [address] [place] [address] [phone] Ast/Sgot 31 U/L Normal 7-37 Alt/SGPT 23 U/L Normal 12-78 Alkaline Phosphatase 143 U/L High 45-117 Bilirubin,Total 0.4 mg/dL Normal 0.2-1.0 Bilirubin,Direct 0.2 mg/dL Normal 0.0-0.2 Total Protein 7.8 GM/DL Normal 6.4-8.2 Albumin 2.8 GM/DL Low 3.2-5.2 Albumin/Globulin Ratio 0.6 Low 1.2-2.2 Laboratory test finding 08/29/2019 [facility] Main Lab [address] [place] [address] [phone] Gamma Glutamyltranspeptidase 29 U/L Normal 5-5 5 Prothrombin Time/Inr 08/29/2019 [facility] Main Lab [address] [place] [address] [phone] Prothrombin Time 14.7 seconds High 11.8-14.0 Inr 1.18 Normal 7 Anti-Neutrophil Cytoplasmic AB 08/29/2019 [facility] Main Lab [address] [place] [address] [phone] Cytoplasmic Neutrop AB Anca-C <1:20 titer Normal N eg:<1:20 Perinuclear AB Anca-P <1:20 titer Normal Neg:<1:20 8 Anca-Atypical <1:20 titer Normal Neg:<1:20 9 CBC With Differential 08/29/2019 [facility] Main Lab [address] [place] [address] [phone] White Blood Count 9.5 10 Normal 4.0-10.0 Red Blood Count 3.54 10 Low 4.00-5.40 Hemoglobin 10.0 g/dL Low 12.0-15.5 Hematocrit 32.8 % Low 36.0-47.0 Mean Corpuscular Volume 92.7 fl Normal 80.0-96.0 Mean Corpuscular Hemoglobin 28.2 pg Normal 27.0-33.0 Mean Corpuscular HGB Conc 30.5 g/dL Low 32.0-36.5 Red Cell Distribution Width 14.4 % Normal 11.5-14.5 Platelet Count, Automated 224 10 Normal 150-450 Neutrophils % 62.0 % Normal 36.0-66.0 Lymph % 23.8 % Low 24.0-44.0 [place] % 9.7 % High 0.0-5.0 Eos % 3.8 % High 0.0-3.0 Baso % 0.3 % Normal 0.0-1.0 Immature Granulocyte % 0.4 % Normal 0-3.0 Nucleated Red Blood Cell % 0.0 % Normal 0-0 Neutrophils # 5.9 10 Normal 1.5-8.5 Lymph # 2.3 10 Normal 1.5-5.0 [place] # 0.9 10 High 0.0-0.8 Eos # 0.4 10 Normal 0.0-0.5 Baso # 0.0 10 Normal 0.0-0.2 10 1 FINAL DIAGNOSIS Gastric biopsy: Chronic gastritis with mild architectural distortion, no acute inflammation or features of H. pylori are noted. 10/18/20191548 CLINICAL DIAGNOSIS Gastric ulcer follow up 10/18/20191548 GROSS DIAGNOSIS Received in formalin, labeled "gastric biopsy" are two fragments of tissue, 0.3 and 0.4 cm. All in one. 10/18/20191548 Signed Eli Hi M.D. 10/18/20191548 2 Performed at: - [facility] [id number] Equipment Records Supervisor: Estefany Brown MD, Phone: [phone] Performed at: - [facility] [address] [id number] Equipment Records Supervisor: Heena Siu MD, Phone: [phone] 3 Negative 0.0 - 20.0 Equivocal 20.1 - 24.9 Positive >24.9 . Mitochondrial (M2) Antibodies are found in 90-96% of patients with primary biliary cirrhosis. 4 Negative Not infected with HCV, unless recent infection is suspected or other evidence exists to indicate HCV infection. 5 Negative 0 - 3 Weak Positive 4 - 10 Positive >10 . Tissue Transglutaminase (tTG) has been identified as the endomysial antigen. Studies have demonstr- ated that endomysial IgA antibodies have over 99% specificity for gluten sensitive enteropathy. 6 Negative 0.0 - 20.0 Equivocal 20.1 - 24.9 Positive >24.9 . LKM type 1 antibodies are detected in patients with autoimmune hepatitis type 2 and in up to 8% of patients with chronic HCV infection. 7 THERAPUTIC HUMAN INR VALUES INDICATIONS NORMAL RANGES PROPHYLAXIS/TREATMENT OF: VENOUS THROMBOSIS 2.0-3.0 PULMONARY EMBOLISM 2.0-3.0 PREVENTION OF SYSTEMIC EMBOLISM FROM: TISSUE HEART VALVES 2.0-3.0 ACUTE MYOCARDIAL INFARCTION 2.0-3.0 VALVULAR HEART DISEASE 2.0-3.0 ATRIAL FIBRILLATION 2.0-3.0 MECHANICAL VALVES(HIGH RISK) 2.5-3.5 RECURRENT MYOCARDIAL INFARCTION 2.5-3.5 8 The presence of positive flu orescence exhibiting P-ANCA or C-ANCA patterns alone is not specific for the diagnosis of Ashanti's Granulomatosis (WG) or microscopic polyangiitis. Decisions about treatment should not be based solely on ANCA IFA results. The International ANCA Group Consensus recommends follow up testing of positive sera with both NH- 3 and MPO-ANCA enzyme immunoassays. As m any as 5% serum samples are positive only by EIA. Ref. AM J Clin Pathol 1999;111:507-513. 9 The atypical pANCA pattern h as been observed in a significant percentage of patients with ulcerative colitis, primary sclerosing cholangitis and autoimmune hepatitis. 10 09/10/19 (TueSep 09) 02:48 PM ANDREW MENDOZA [facility]. Procedures Date Code Description Status 09/20/2019 77505 Endoscopy Upper GI Biopsy Comple rosa [employer] Description No Information Available Encounters Type Date Location Provider Dx Diagnosis Office Visit 10/08/2019 10:45a [facility] E[facility]GI [facility] Andrew Mendoza MD K25.0 Acute gastric ulcer with hemorrhage K74.60 Unspecified cirrhosis of goldie er K76.6 Portal hypertension Office Visit 08/29/2019 10:30a [facility] ENT[facility]GI Practice Andrew Mendoza MD K25.0 Acute gastric ulcer with hemorrhage K74.60 Unspecified cirrhosis of goldie er Assessments Date Code Description Provider 10/08/2019 K25.0 Acute gastric ulcer with hemorrh age Andrew Mendoza MD 10/08/2019 K74.60 Unspecified cirrhosis of liver D jalyn Mendoza MD 10/08/2019 K76.6 Portal hypertension Andrew Mendoza MD 09/20/2019 K31.89 Other diseases of stomach and du odenum Andrew Mendoza MD 09/20/2019 I85.00 Esophageal varices without bleed ing Andrew Mendoza MD 08/29/2019 K25.0 Acute gastric ulcer with hemorrh age Andrew Mendzoa MD 08/29/2019 K74.60 Unspecified cirrhosis of liver William Mendoza MD Plan of Treatment Future Appointment(s):* 01/30/2020 9:30 am - Andrew Leo, DO at [facility] Pulmonary/Thoracic 10/08/2019 - Andrew Mendoza MD* K25.0 Acute gastric ulcer with hemorrhage * K74.60 Unspecified cirrhosis of liver * K76.6 Portal hypertension * * Comments:* likely has cirrhosis of liver with portal hypertension (small esophageal varices). Cause is idiopathic, and she is asymptomatic at this time. (small varices found incidentally led to US liver showing nodular liver). she is not obese, no alcohol, no hepatitis hx. Her LFT are normal. At this time will hold off on liver biopsy (will not likely provide cause, and will not change management specialist)--will see her back in 6 months for repeat US.Her gastric ulcer has healed. will continue PPI daily and indefinitely. she will hold NSAIDS. she can stop sucralfate. * Follow up:* 6 months (US/Labs/AFP before) Functional Status Description No Information Available Mental Status Description No Information Available Referrals Refer to Reason for Referral Status Appt Date Andrew Mendoza MD NEW DIAGNOSIS OF CIRRHOSIS WITH ASCITIES González eduled 08/29/2019 [facility], Gastroenterology [address] [facility], [address] [place] [id number] [phone]
--- OUTSIDE RECORDS SUMMARY | 2020-04-15 17:07 | CCD | Continuity of Care Document ---
Author Author Ramon MENDOZA MD Organization Unknown Address [address] [place] [address] Phone [phone] Care Team Providers Care Product Safety Associate Name Role Phone DorydarlynPatti weinstein P.A.-C. AUTM Cindi Colin M.D. AUTM [phone] Problems Active Problems Provider Date Difficulty breathing Stoney Leo D.O. Onset: 11/08/19 13 Underweight Stoney Leo D.O. Onset: 1 Acute exacerbation of bronchiectasis Stoney Leo D.O. Onset: 04/07/2010 Cough Stoney Leo D.O. Onset: 1 Bronchiolectasis Stoney Leo D.O. Onset: 1 Hypoxemia Stoney Leo DO Onset: 01/30/2020 Social History Type Date Description Comments Sex Unknown ETOH Use Never used alcohol Tobacco Use Start: Unknown Patient has never smoked Smoking Status Reviewed: 01/30/20 Patient has never smoked Allergies, Adverse Reactions, [...] D R 1 po q day 30tabs Stoney Mendoza MD 10/08/2019 Albuterol Sulfate (2 .5mg/3ML) 0.083% Nebulizer use 1 vial in nebulizer 4 times daily as needed 375units J47.9 Stoney Leo, DO 05/01/2014 Albuterol Sulfate (2 .5mg/3ML) 0.083% Nebulizer 1 vial via neb four times a day as needed 360units J47.9 Stoney Leo, DO 05/01/2014 Multivitamins Capsules qd Unknown Ipratropium Dilworth 0.02% Solution 1 vial via neb four times a day Unknown 000 Lumigan 0.01% Solution Unknown Calcium 600+D 091-559gm-Snzv Table ts 1 tab by mouth every day Unknown Furosemide 40mg Tablets 1/ 2 pill daily Unknown Vitamin C 100mg Chewtabs 1 tab by mouth every day Unknown Immunizations CPT Code Status Date Vaccine Lot # [id number] Given 03/04/2014 Prevnar 13 08622 Given 01/02/2014 Influenza Virus Split 3 Yrs And Above For Intramuscular Use Q2036 Given 01/12/2012 Influenza Vaccine 3 Years Of Age Or Older (Flulaval) Q2036 Given 12/23/2010 Influenza Vaccine 3 Years Of Age Or Older (Flulaval) 78402 Given 01/14/2010 Influenza Virus Split 3 Yrs And Above For Intramuscular Use 54099 Given 11/26/2002 Pneumococcal PPSV23 Vital Signs Date Vital Result Comment 04/10/2020 11:32am BP Systolic 114 mmHg BP Diastolic 65 mmHg Height 59 inches 4'11" Weight 111.00 lb BMI (Body Mass Index) 22.4 kg/m2 Amity Body Weight 100 lb Weight 50.350 kg BSA (Body Surface Area) 1.44 m2 01/30/2020 9:04am BP Systolic 112 mmHg BP Diastolic 60 mmHg Heart Rate 92 /min O2 % BldC Oximetry 95 % Body Temperature 97.8 F Height 59 inches 4'11" Weight 107.38 lb BMI (Body Mass Index) 21.7 kg/m2 Amity Body Weight 100 lb Weight 48.705 kg BSA (Body Surface Area) 1.42 m2 Results Test Acquired Date Facility Test Result H/L Range Note FVL/Myke 01/30/2020 [facility] SEE IMAGE FVC-Pred 2.02 L FVC-Pre 1.32 L FVC-%Pred-Pre 65 L FVC-LLN 1.43 L Fev1-Pred 1.48 L Fev1-Pre 1.03 L Fev1-%Pred-Pre 69 L Fev1-LLN 0.99 L Fev6-Pred 1.90 L Fev6-Pre 1.32 L Fev6-%Pred-Pre 69 L Fev6-LLN 1.32 L Eou4hvm-Stya 74 % Gku1vdd-Grt 78 % Kyt2bof-%Pred-Pre 105 % Udc4vqa-ZHD 64 % Ero3xhg-Sqaj 94 % Dsx1poa-Zas 100 % Xtv5cdx-%Pred-Pre 106 % FEFMax-Pred 4.05 L/E/sec FEFMax-Pre 2.62 L/E/sec FEFMax-%Pred-Pre 64 L/E/sec FEFMax-LLN 2.60 L/E/sec Pzr3149-Eplc 1.13 L/E/sec Qwm2535-Smp 0.81 L/E/sec Kfo5379-%Pred-Pre 71 L/E/sec Ybh0268-TCZ 0.08 L/E/sec ExpTime-Pre 4.53 sec Lbh7zgp6-Demc 78 % Hvt1kdf1-Djz 78 % Vmo0vke0-%Pred-Pre 99 % Kqo7uji2-MWH 69 % Procedures Date Code Description Status 01/30/2020 62661 Spirometry Completed Medical Devices Description No Information Available Encounters Type Date Location Provider Dx Diagnosis Office Visit 04/10/2020 11:30a [facility] Stoney Mendoza MD R93.2 Abnormal findings on dx imaging of liver and biliary tract K74.60 Unspecified cirrhosis of goldie er K76.6 Portal hypertension Office Visit 01/30/2020 9:30a [facility] D jalyn Leo DO J47.9 Bronchiectasis, uncomplicate d R09.02 Hypoxemia Assessments Date Code Description Provider 04/10/2020 R93.2 Abnormal findings on diagnostic imaging of liver and biliary tract Stoney Mendoza MD 04/10/2020 K74.60 Unspecified cirrhosis of liver D jalyn Mendoza MD 04/10/2020 K76.6 Portal hypertension Stoney Mendoza MD 01/30/2020 J47.9 Bronchiectasis, uncomplicated Da vid Varinder Leo, DO 01/30/2020 R09.02 Hypoxemia Stoney Leo DO Plan of Treatment Future Appointment(s):* 05/21/2020 10:00 am - Stoney Mendoza MD at [facility] * 08/04/2020 9:30 am - Stoney Leo DO at [facility] 04/10/2020 - Stoney Mendoza MD* R93.2 Abnormal findings on diagnostic imaging of liver and biliary tract * K74.60 Unspecified cirrhosis of liver * K76.6 Portal hypertension * * Comments:* Not losing weight, feels reasonably well. Her liver cirrhosis is relatively asymptomatic at this time. US liver shows a new 1.[address] Contrast recommended. her last creat was 1.7. * Follow up:* 1 month (will call her after labs back to discuss) * Recommendations:* await her lab work results from today...still pending. Will add Renal function/BUN/Creat. Dep on that will decide if the lesion will be scanned with contrast CT now, or if will follow in 2 months by US. (or Biopsied). Options will need to be discussed. (I note that in view of multiple medical issues, she is not an ideal surgical candidate), Functional Status Description No Information Available Mental Status Description No Information Available Referrals Description No Information Available
--- OUTSIDE RECORDS SUMMARY | 2020-04-15 17:07 | CCD ---
Author Author [facility] Organization [facility] Address Unknown Phone Unavailable Care Team Providers Care Home Assessment Nurse Name Role Phone Cindi Colin Unavailable PROBLEMS Type Condition ICD9-CM Code VXU36-JF Code Onset Dates Condition S tatus SNOMED Code Notes Problem Glaucoma of both eyes, unspecified glaucoma type H 40.9 Active 25738993 Problem Age-related osteoporosis without current pathological fracture M81.0 Active 01285007 Problem Decreased hearing of both ears H91.93 Active 1 51553059 Problem Other ascites R18.8 Active 381503344 Problem Vitamin D deficiency, unspecified E55.9 Active 50232755 Problem Unspecified cirrhosis of liver K74.60 Active 1 0104771 Problem Bronchiectasis, uncomplicated J47.9 Active 29 643432 Problem Chronic kidney disease, stage 3 N18.3 Active 250841529 Problem Anemia of chronic disease D63.8 Active 659478 009 Problem Erosive esophagitis K22.10 Active 58139377 Problem Chronic diastolic congestive heart failure I50.32 Active 173182275 ALLERGIES Allergen (clinical drug ingredient) Drug/Non Drug Allergy do cumented on EMR Reaction Allergy Type Onset Date Status latanoprost Xalatan(NDC Code:[address]-75) pain in eye, hea rt racing Drug Allergy Active brimonidine Brimonidine Tartrate(NDC Code:[address] -10) weak,altered mental status Drug Allergy Active Benzalkonium Chloride(NDC Code:[address]-03) Unknown D rug Allergy Active moxifloxacin Avelox Rash Drug Allergy Active SMZ-TMP DS difficulty breathing, dizziness Drug Allergy Active dorzolamide Dorzolamide HCl(NDC Code:[address]-98) Unknown Drug A llergy Active moxifloxacin Moxifloxacin HCl(ND Code:[address]-41) Unknown Drug Allergy Active dorzolamide / timolol Cosopt(ND Code:[address]-93) congestion and cough Drug Allergy Active diclofenac Voltaren(NDC Code:[address]-70) fever, heart racing Drug Allergy Active Timolol bronchospasm Drug Allergy Active sulfamethoxazole / trimethoprim Bactrim(ND Code:[address]- 01) stomach ache, appetite loss Drug Allergy Active timolol Istalol(NDC Code:[address]-38) cough and troubl e breathing Drug Allergy Active clarithromycin Clarithromycin(ND Code:[address]-67) Unknown Drug Allergy Active bimatoprost Bimatoprost(NDC Code:[address]-27) Unknown Drug Aller gy Active cephalexin Cephalexin(NDC Code:[address]-12) Unknown Drug Allergy Active Travatan pain in eye, heart racing Drug Allergy Active Levaquin rash Non Drug Allergy Active ENCOUNTERS from 1940 to 2020-02-02 Encounter Location Date Provider Diagnosis [address] [address] Jan, Cindi Colin Annual physical exam Z00.00 ; Bronchiect asis, uncomplicated J47.9 ; Chronic kidney disease, stage 3 N18.3 ; Anemia of chronic disease D63.8 ; Age- related osteoporosis without current pathological fracture M81.0 ; Glaucoma of both eyes, unspecified glaucoma type H40.9 ; Erosive esophagitis K22.10 ; Vitamin D deficiency, unspecified E55.9 ; Decreased hearing of both ears H91.93 ; Chronic diastolic congestive heart failure I50.32 and Unspecified cirrhosis of liver K74.60 IMMUNIZATIONS Vaccine Route Administration Date Status Influenza (High Dose 65 & up) Unknown Dec 01, 2016 Ad ministered Influenza (High Dose 65 & up) IM Intramuscular Dec 08, 2015 A dministered Pneumococcal Adult 0.5mL (Pneumovax 23) Unknown Mar 10, 2011 Administered Pneumococcal 0.5mL (Prevnar 13) IM Intramuscular Mar 22, 2014 Administered Influenza (6mo & up) Fluzone Unknown Nov 16, 2013 Adm inistered SOCIAL HISTORY Tobacco Use: Social History Observation Description Date Details (start date - stop date) Never Smoker Sex Assigned At : Social History Observation Description Sex Assigned At Unknown Audit Question Answer Notes Total Score: 0 Interpretation: Alcohol Education Language: Question Answer Notes Languages spoken: Spanish Voodoo: Question Answer Notes Voodoo 33 None Sexual Hx: Question Answer Notes Had sex in the last 12 months (vaginal, oral, or anal)? Yes Have you ever had an STD? No with Men only Use protection? No Drug and Alcohol Question Answer Notes Total Score: 0 Interpretation: No problems reported Alcohol Screening: Question Answer Notes Did you have a drink containing alcohol in the past year? No Points 0 Interpretation Negative Tobacco Use: Question Answer Notes Are you a: never smoker REASON FOR REFERRAL No Information VITAL SIGNS Weight 107 lbs Jan, Height 60 in Jan, BMI 20.89 kg/m2 Jan, Heart Rate 94 /min Jan, Respiratory Rate 20 /min Jan, Temperature 96.5 degrees Fahrenheit Jan, Oximetry 94 RA Jan, Blood pressure systolic 94 mm Hg Jan, Blood pressure diastolic 54 mm Hg Jan, MEDICATIONS Medication SIG (Take, Route, Frequency, Duration) Notes Start Da te End Date Status Albuterol Sulfate (2.5 MG/3ML) 0.083% 3 ml nebulized four trimes day prn SOB May, Active Multivitamin ... 1 tab(s) Orally Once a day Active Calcium + D _ 1 tab Orally Daily Act iram Vitamin C 250 MG 1 tablet Orally Once a day Active Oxygen 2 LPM via nasal cannula 20/09 as needed Active Furosemide 40mg 0.5 tab Oral daily A ctive Pilocarpine HCl 1 % 1 drop into the left eye Ophthalmic four stewart es daily Feb, Active Pantoprazole Sodium 40 MG 1 tablet Orally Daily for 90 day(s) Active PROCEDURES No Information RESULTS No Results REASON FOR VISIT AWV, Need most recent Nephro note MEDICAL (GENERAL) HISTORY Type Description Date Medical History H/O Bronchiectasis with Heav y Psudomonas + sputum 2008 - 2012 - Dr. Leo Medical History Adenomatous colon polyp - 2014 Medical History Gallstone Pancreatitis 05/2012 Medical History senior living Second-Hand smoke exposure, bu t never smoked herself Medical History Osteopenia; DEXA 01/2019, FRAX 34%/17% Medical History Iron deficiency anemia Medical History Hx C. Diff in 08/2018 Medical History Glaucoma - Dr. Shook Medical History Right ankle fracture 2017 Medical History Chronic kidney disease stage 3 - Dr. Saúl Dixon Medical History [place] grade D erosive esophagit is c doudenal erosions/moderate sliding HH by 03/02/19 [facility] Medical History cholelithiasis by 03/02/19 CT [facility] Surgical History Colonoscopy - adenomatous polyp 2011 Surgical History Colonoscopy - Adenomatous polyp - [facility] 05/2014 Surgical History bilateral cataract extraction Surgical History Left laser eye 10/21/2016 Surgical History Colonoscopy (2 polyps); EGD (mod severe esophagitis, small HH); - Dr. Drew 12/2017 Surgical History EGD - esophagitis/ulcer healed 03/2018 Surgical History EGD - previous ulcers healed, portal gas tropathy noted 08/2019 Hospitalization History pancreatitis 2012 Hospitalization History [facility] pneumonia 12/14 Hospitalization History [facility] pneumonia and C. diff 08/2018 Hospitalization History pneumonia 11/2018 Hospitalization History symptomatoic acute on chroni c anemia 2 GIB 2 severe erosive esophagitis by [facility] presenting 5.7 sp 5u PRBCs up to 9.4 at dc/DARLINE I 1.8, back to baseline at dc, renal US cw MRD, CT AP diffuse bowel wall thickening 03/02-10/2019 Hospitalization History GI bleed 06/21/2019 Hospitalization History CHF 06/2019 Goals Section No Information Health Concerns No Information MEDICAL EQUIPMENT No Information MENTAL STATUS No Information FUNCTIONAL STATUS No Information ASSESSMENTS Encounter Date Diagnosis Assessment Notes Treatment Notes Treatm ent Clinical Notes Jan, Annual physical exam (ICD-10 - Z00.00) Medical, surgical, and family histories were reviewed and updated. Jan, Bronchiectasis, uncomplicated (ICD-10 - J47.9) Follows with Dr. Leo - will request most recent note. Jan, Chronic kidney disease, stage 3 (ICD-10 - N18.3) Follows with Nephro - has appointment tomorrow. Jan, Anemia of chronic disease (ICD-10 - D63.8) Monitored by Nephro - will follow up with them tomorrow and have labs done there. Jan, Age-related osteoporosis wit hout current pathological fracture (ICD-10 - M81.0) I discussed with the patient that she is at increased risk of fracture and that medication could help decrease this risk - she verbalized understanding of this. After discussion of risks and benefits of medication she refusese recommended medication for osteoporosis. Continue Ca+D. Jan, Glaucoma of both eyes, unspecified glauc tyrell type (ICD-10 - H40.9) Follows with Dr. Shook. Jan, Erosive esophagitis (ICD-10 - K22.10) Follows with Dr. Drew; per patient, he stopped sucralfate in 09/2019. Jan, Vitamin D deficiency, unspecified (ICD-10 - E55. 9) Continue vitamin D. Jan, Decreased hearing of both ears (ICD-10 - H91.93) Declines referral to audiology or hearing aids. Jan, Chronic diastolic congestive heart failure (ICD- 10 - I50.32) Euvolemic on exam today. Jan, Unspecified cirrhosis of liver (ICD-10 - K74.60) Follows with Dr. Drew. PLAN OF TREATMENT Medication Medication Name Sig Start Date Stop Date Albuterol Sulfate (2.5 MG/3ML) 0.083% 3 ml nebulized four tr imes day prn SOB May, Furosemide 40mg 0.5 tab Oral daily Pilocarpine HCl 1 % 1 drop into the left eye Ophthalmic four times daily Feb, Oxygen 2 LPM via nasal cannula 20/09 as needed Multivitamin ... 1 tab(s) Orally Once a day Calcium + D _ 1 tab Orally Daily Pantoprazole Sodium 40 MG 1 tablet Orally Daily for 90 day(s) Treatment Notes Assessment Notes Clinical Notes Annual physical exam Medical, surgical, and family histories were reviewed and updated. Bronchiectasis, uncomplicated Follows Dr. Leo - will request most recent note. Chronic kidney disease, stage 3 Follows with Nephro - has appointment tomorrow. Anemia of chronic disease Monitored by [facility] valente - will follow up with them tomorrow and have labs done there. Age-related osteoporosis without current pathological fractu re I discussed with the patient that she is at increased risk of fracture and that medication could help decrease this risk - she verbalized understanding of this. After discussion of risks and benefits of medication she refusese recommended medication for osteoporosis. Continue Ca+D. Glaucoma of both eyes, unspecified glaucoma type Follows with Dr. Shook. Erosive esophagitis Follows with Dr. Dc cabello; per patient, he stopped sucralfate in 09/2019. Vitamin D deficiency, unspecified Contin ue vitamin D. Decreased hearing of both ears Declines referral to audiology or hearing aids. Chronic diastolic congestive heart failure Euvolemic on exam today. Unspecified cirrhosis of liver Follows petra Drew. Next Appt Details 4 months Reason:F/u med prob Provider Name:Cindi Colin, 2020-06-05 07:30:00 AM, [address] [place], [address], Follow Up:4 monthsF/u med prob Insurance Providers Payer Name Payer Address Payer Phone Insured Name Patient Relati onship to Insured Coverage Start Date Coverage End Date [employer] MED[employer]ARE [employer]ANCE [facility] [address] [facility] [phone] MONA HODGES self
--- OUTSIDE RECORDS SUMMARY | 2020-04-15 17:08 | CCD ---
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 Name Role Phone Ken Finley, Taty Lua MD, FACS Unavailable Unavailable Rogers Finley, Taty Lua MD, FACS Unavailable Unavailable Rogers Finley, Taty Lua MD, FACS Unavailable Unavailable Rogers Finley, Taty Lua MD, FACS Unavailable Unavailable Rogers Finley, Taty Lua MD, FACS Unavailable Unavailable Rogers Finley, Taty Lua MD, FACS Unavailable Unavailable Rogers Finley, Taty Lua MD, FACS Unavailable Unavailable Rogers Finley, Taty Lua MD, FACS Unavailable Unavailable Rogers Finley, Taty Lua MD, FACS Unavailable Unavailable Rogers Finley, Taty Lua MD, FACS Unavailable Unavailable Rogers Finley, Taty Lua MD, FACS Unavailable Unavailable Rogers Finley, Taty Lua MD, FACS Unavailable Unavailable Rogers Finley, Taty Lua MD, FACS Unavailable Unavailable Rogers Finley, Taty Lua MD, FACS Unavailable Unavailable Rogers Finley, Taty Lua MD, FACS Unavailable Unavailable Rogers Finley, Taty Lua MD, FACS Unavailable Unavailable Rogers Finley, Taty Lua MD, FACS Unavailable Unavailable Rogers Finley, Taty Lua MD, FACS Unavailable Unavailable Rogers Finley, Taty Lua MD, FACS Unavailable Unavailable Rogers Finley, Taty Lua MD, FACS Unavailable Unavailable Rogers Finley, Taty Lua MD, FACS Unavailable Unavailable Rogers Finley, Taty Lua MD, FACS Unavailable Unavailable Rogers Finley, Taty Lua MD, FACS Unavailable Unavailable Rogers Finley, Taty Lua MD, FACS Unavailable Unavailable Rogers Finley, Taty Lua MD, FACS Unavailable Unavailable Rogers Finley, Taty Lua MD, FACS Unavailable Unavailable Rogers Finley, Taty Lua MD, FACS Unavailable Unavailable Rogers Finley, Taty Lua MD, FACS Unavailable Unavailable Rogers Finley, Taty Lua MD, FACS Unavailable Unavailable Rogers Finley, Taty Lua MD, FACS Unavailable Unavailable Rogers Finley, Taty Lua MD, FACS Unavailable Unavailable Rogers Finley, Taty Lua MD, FACS Unavailable Unavailable Rogers Finley, Taty Lua MD, FACS Unavailable Unavailable Rogers Finley, Taty Lua MD, FACS Unavailable Unavailable Rechlin, P Andrew DO Unavailable Unavailable Rechlin, P Andrew DO Unavailable Unavailable Rechlin, P Andrew DO Unavailable Unavailable Rechlin, P Andrew DO Unavailable Unavailable Rechlin, P Andrew DO Unavailable Unavailable Rechlin, P Andrew DO Unavailable Unavailable Rechlin, P Andrew DO Unavailable Unavailable Rechlin, P Andrew DO Unavailable Unavailable Rechlin, P Andrew DO Unavailable Unavailable Rechlin, P Andrew DO Unavailable Unavailable Rechlin, P Andrew DO Unavailable Unavailable Rechlin, P Andrew DO Unavailable Unavailable Rechlin, P Andrew DO Unavailable Unavailable Rechlin, P Andrew DO Unavailable Unavailable Rechlin, P Andrew DO Unavailable Unavailable Rechlin, P Andrew DO Unavailable Unavailable Rechlin, P Andrew DO Unavailable Unavailable Rechlin, P Andrew DO Unavailable Unavailable Rechlin, P Andrew DO Unavailable Unavailable Rechlin, P Andrew DO Unavailable Unavailable Rechlin, P Andrew DO Unavailable Unavailable Rechlin, P Andrew DO Unavailable Unavailable Rechlin, P Andrew DO Unavailable Unavailable Rechlin, P Andrew DO Unavailable Unavailable Rechlin, P Andrew DO Unavailable Unavailable Rechlin, P Andrew DO Unavailable Unavailable Rechlin, P Andrew DO Unavailable Unavailable Rechlin, P Andrew DO Unavailable Unavailable Rechlin, P Andrew DO Unavailable Unavailable Rechlin, P Andrew DO Unavailable Unavailable Rechlin, P Andrew DO Unavailable Unavailable Rechlin, P Andrew DO Unavailable Unavailable Rechlin, P Andrew DO Unavailable Unavailable Rechlin, P Andrew DO Unavailable Unavailable Rechlin, P Andrew DO Unavailable Unavailable Rechlin, P Andrew DO Unavailable Unavailable Rechlin, P Andrew DO Unavailable Unavailable Rechlin, P Andrew DO Unavailable Unavailable Rechlin, P Andrew DO Unavailable Unavailable Rechlin, P Andrew DO Unavailable Unavailable Rechlin, P Andrew DO Unavailable Unavailable Rechlin, P Andrew DO Unavailable Unavailable Rechlin, P Andrew DO Unavailable Unavailable Rechlin, P Andrew DO Unavailable Unavailable Rechlin, P Andrew DO Unavailable Unavailable Rechlin, P Andrew DO Unavailable Unavailable Rechlin, P Andrew DO Unavailable Unavailable Rechlin, P Andrew DO Unavailable Unavailable Rechlin, P Andrew DO Unavailable Unavailable Rechlin, P Andrew DO Unavailable Unavailable Rechlin, P Andrew DO Unavailable Unavailable Rechlin, P Andrew DO Unavailable Unavailable Rechlin, P Andrew DO Unavailable Unavailable Rechlin, P Andrew DO Unavailable Unavailable Rechlin, P Andrew DO Unavailable Unavailable Rechlin, P Andrew DO Unavailable Unavailable Rechlin, P Andrew DO Unavailable Unavailable Rechlin, P Andrew DO Unavailable Unavailable Rechlin, P Andrew DO Unavailable Unavailable Rechlin, P Andrew DO Unavailable Unavailable Rechlin, P Andrew DO Unavailable Unavailable Rechlin, P Andrew DO Unavailable Unavailable Rechlin, P Andrew DO Unavailable Unavailable Rechlin, P Andrew DO Unavailable Unavailable Rechlin, P Andrew DO Unavailable Unavailable Rechlin, P Andrew DO Unavailable Unavailable Rechlin, P Andrew DO Unavailable Unavailable Rechlin, P Andrew DO Unavailable Unavailable Rechlin, P Andrew DO Unavailable Unavailable Rechlin, P Andrew DO Unavailable Unavailable Rechlin, P Andrew DO Unavailable Unavailable Rechlin, P Andrew DO Unavailable Unavailable Rechlin, P Andrew DO Unavailable Unavailable Rechlin, P Andrew DO Unavailable Unavailable Rechlin, P Andrew DO Unavailable Unavailable Rechlin, P Andrew DO Unavailable Unavailable Rechlin, P Andrew DO Unavailable Unavailable Rechlin, P Andrew DO Unavailable Unavailable Rechlin, P Andrew DO Unavailable Unavailable Rechlin, P Andrew DO Unavailable Unavailable Rechlin, P Andrew DO Unavailable Unavailable Rechlin, P Andrew DO Unavailable Unavailable Rechlin, P Andrew DO Unavailable Unavailable Rechlin, P Andrew DO Unavailable Unavailable Rechlin, P Andrew DO Unavailable Unavailable Rechlin, P Andrew DO Unavailable Unavailable Rechlin, P Andrew DO Unavailable Unavailable Rechlin, P Andrew DO Unavailable Unavailable Rechlin, P Andrew DO Unavailable Unavailable Rechlin, P Andrew DO Unavailable Unavailable Rechlin, P Andrew DO Unavailable Unavailable Rechlin, P Andrew DO Unavailable Unavailable Rechlin, P Andrew DO Unavailable Unavailable Rechlin, P Andrew DO Unavailable Unavailable Rechlin, P Andrew DO Unavailable Unavailable Rechlin, P Andrew DO Unavailable Unavailable CASEY, A. RONNA DO Unavailable [phone] Taty GUERRERO. RONNA DO Unavailable [phone] Taty GUERRERO. RONNA DO Unavailable [phone] CASEYMiller RONNA DO Unavailable [phone] CASEY, A. RONNA DO Unavailable [phone] CASEY, A. RONNA DO Unavailable [phone] CASEY A. RONNA DO Unavailable [phone] Miller GUERREROEW DO Unavailable [phone] Miller GUERRERO RONNA DO Unavailable [phone] Miller GUERRERO RONNA DO Unavailable [phone] Miller GUERRERO RONNA DO Unavailable [phone] Miller GUERRERO RONNA DO Unavailable [phone] Mliler GUERRERO RONNA DO Unavailable [phone] Miller GUERRERO RONNA DO Unavailable [phone] Miller GUERRERO RONNA DO Unavailable [phone] Miller GUERRERO RONNA DO Unavailable [phone] Miller GUERREROEW DO Unavailable [phone] Miller GUERRERO RONNA DO Unavailable [phone] Miller GUERREROEW DO Unavailable [phone] Miller GUERREROEW DO Unavailable [phone] Miller GUERREROEW DO Unavailable [phone] REINDL, ANDREW GARCIA Unavailable Unavailable REINDL, ANDREW GARCIA Unavailable Unavailable REINDL, ANDREW GARCIA Unavailable Unavailable REINDL, ANDREW GARCIA Unavailable Unavailable REINDL, ANDREW GARCIA Unavailable Unavailable REINDL, ANDREW GARCIA Unavailable Unavailable REINDL, ANDREW GARCIA Unavailable Unavailable REINDL, ANDREW GARCIA Unavailable Unavailable REINDL, ANDREW GARCIA Unavailable Unavailable REINDL, ANDREW GARCIA Unavailable Unavailable REINDL, ANDREW GARCIA Unavailable Unavailable REINDL, ANDREW GARCIA Unavailable Unavailable REINDL, ANDREW GARCIA Unavailable Unavailable REINDL, ANDREW GARCIA Unavailable Unavailable REINDL, ANDREW GARCIA Unavailable Unavailable REINDL, ANDREW GARCIA Unavailable Unavailable REINDL, ANDREW GARCIA Unavailable Unavailable REINDL, ANDREW GARCIA Unavailable Unavailable REINDL, ANDREW GARCIA Unavailable Unavailable REINDL, ANDREW GARCIA Unavailable Unavailable REINDL, ANDREW GARCIA Unavailable Unavailable REINDL, ANDREW GARCIA Unavailable Unavailable REINDL, ANDREW GARCIA Unavailable Unavailable REINDL, ANDREW GARCIA Unavailable Unavailable REINDL, ANDREW GARCIA Unavailable Unavailable REINDL, ANDREW GARCIA Unavailable Unavailable REINDL, ANDREW GARCIA Unavailable Unavailable REINDL, ANDREW GARCIA Unavailable Unavailable REINDL, ANDREW GARCIA Unavailable Unavailable REINDL, ANDREW GARCIA Unavailable Unavailable REINDL, ANDREW GARCIA Unavailable Unavailable REINDL, ANDREW GARCIA Unavailable Unavailable REINDL, ANDREW GARCIA Unavailable Unavailable REINDL, ANDREW GARCIA Unavailable Unavailable REINDL, ANDREW GARCIA Unavailable Unavailable REINDL, ANDREW GARCIA Unavailable Unavailable REINDL, ANDREW GARCIA Unavailable Unavailable REINDL, ANDREW GARCIA Unavailable Unavailable REINDL, ANDREW GARCIA Unavailable Unavailable REINDL, ANDREW GARCIA Unavailable Unavailable REINDL, ANDREW GARCIA Unavailable Unavailable REINDL, ANDREW GARCIA Unavailable Unavailable REINDL, ANDREW GARCIA Unavailable Unavailable REINDL, ANDREW GARCIA Unavailable Unavailable Re-disclosure Warning The records that you are about to access may contain information from federally-assisted alcohol or drug abuse programs. If such information is present, then the following federally mandated warning applies: This information has been disclosed to you from records protected by federal confidentiality rules (42 CFR part 2). The federal rules prohibit you from making any further disclosure of this information unless further disclosure is expressly permitted by the written consent of the person to whom it pertains or as otherwise permitted by 42 CFR part 2. A general authorization for the release of medical or other information is NOT sufficient for this purpose. The Federal rules restrict any use of the information to criminally investigate or prosecute any alcohol or drug abuse patient.The records that you are about to access may contain highly sensitive health information, the redisclosure of which is protected by Article 27-F of the [facility] Public Health law. If you continue you may have access to information: Regarding HIV / AIDS; Provided by facilities licensed or operated by the [facility] Office of Mental Health; or Provided by the [facility] Office for People With Developmental Disabilities. If such information is present, then the following [facility] mandated warning applies: This information has been disclosed to you from confidential records which are protected by state law. State law prohibits you from making any further disclosure of this information without the specific written consent of the person to whom it pertains, or as otherwise permitted by law. Any unauthorized further disclosure in violation of state law may result in a fine or retirement sentence or both. A general authorization for the release of medical or other information is NOT sufficient authorization for further disc losure. Allergies and Adverse Reactions Type Description Substance Reaction Status Data Source(s ) Drug allergy Cephalexin Cephalexin Unknown Active eCW1 ([facility]) Drug allergy Bimatoprost bimatoprost Unknown Active eCW1 ([facility]) Drug allergy Clarithromycin Clarithromycin Unknown Active eCW1 ([facility]) Drug allergy Istalol Timolol cough and trouble breathing Activ e eCW1 ([facility]) Drug allergy Bactrim sulfamethoxazole / trimethoprim stomach ache, appetite loss Active eCW1 ([facility]) Drug allergy Cosopt dorzolamide / timolol congestion and cough A ctive eCW1 ([facility]) Drug allergy Moxifloxacin HCl moxifloxacin Unknown Active eCW1 ([facility]) Drug allergy Dorzolamide HCl dorzolamide Unknown Active eCW1 ( [facility]) Drug allergy Benzalkonium Chloride Drug allergy Unknown Active eCW1 ([facility]) Drug allergy Brimonidine Tartrate brimonidine weak,altered mental status Active eCW1 ([facility]) Drug allergy Xalatan latanoprost pain in eye, heart racing Active eCW1 ([facility]) Drug allergy Avelox moxifloxacin Rash Active eCW1 ([facility]) Diclofenac Voltaren Diclofenac fever, heart racing Active eCW1 ([facility]) Timolol Timolol Timolol 5 MG Oral Tablet bronchospasm Active eCW1 ([facility]) SMZ-TMP DS SMZ-TMP DS SMZ-TMP DS difficulty breathing, dizziness Act iram eCW1 ([facility]) Travatan Travatan Travatan pain in eye, heart racing Active eCW1 ([facility]) Levaquin Levaquin Levofloxacin 750 MG Oral Tablet [Levaquin] rash Active eCW1 ([facility]) Timolol Timolol Timolol 5 MG Oral Tablet bronchospasm Active eCW1 ([facility]) SMZ-TMP DS SMZ-TMP DS SMZ-TMP DS difficulty breathing, dizziness Act iram eCW1 ([facility]) Travatan Travatan Travatan pain in eye, heart racing Active eCW1 ([facility]) Levaquin Levaquin Levofloxacin 750 MG Oral Tablet [Levaquin] rash Active eCW1 ([facility]) Timolol Timolol Timolol 5 MG Oral Tablet bronchospasm Active eCW1 ([facility]) SMZ-TMP DS SMZ-TMP DS SMZ-TMP DS difficulty breathing, dizziness Act iram eCW1 ([facility]) Travatan Travatan Travatan pain in eye, heart racing Active eCW1 ([facility]) Levaquin Levaquin Levofloxacin 750 MG Oral Tablet [Levaquin] rash Active eCW1 ([facility]) Timolol Timolol Timolol 5 MG Oral Tablet bronchospasm Active eCW1 ([facility]) SMZ-TMP DS SMZ-TMP DS SMZ-TMP DS difficulty breathing, dizziness Act iram eCW1 ([facility]) Travatan Travatan Travatan pain in eye, heart racing Active eCW1 ([facility]) Levaquin Levaquin Levofloxacin 750 MG Oral Tablet [Levaquin] rash Active eCW1 ([facility]) Family History Family Member Name Family Member Gender Family Member Status Date o f Status Description Data Source(s) Unknown Unknown Problem MEDENT ([facility]) Unknown Male Problem MEDENT ([facility] ) Unknown Unknown Problem MEDENT ([facility]) Encounters Encounter Providers Location Date Indications Data Source(s ) Office Visit Attender: ANDREW Sheets/Jam/Nelson/Robert leung 04/10/2020 10:30:00 AM EST [facility] ([facility] Out[place] [facility] [address] 01/31/2020 12:00:00 AM EST eCW1 ([facility]) Office Visit Attender: Andrew Oates/Jam/Nelson/Dc cabello 01/30/2020 08:30:00 AM EST [facility] ([facility] ) Outpatient<td ID="encounterTypeDescripti onID0">IOP CHECK WITH VISUAL FIELD 24- 2</td><td>Ronna Guerrero DO</td><td>Andrew Dubois MD [facility]</td><td>10/24/2019</td><td>6:49AM</td><td>7:56AM</td><td><content ID="encounterDiagnosisID0-0">Glaucoma Open-angle Primary</content></td> Attender: RONNA Blake MD [facility] 10/24/2019 06:49:00 AM EDT - 10/24/2019 07:56:00 AM EDT Glaucoma Open-angle Primary JALEN (Andrew Finley MD [facility]) Glaucoma Open-angle Primary Outpatient Attender: ANDREW Sheets/Jam/Nelson/Robert leung 10/08/2019 10:45:00 AM EDT MEDENT ([facility], ) Unknown [address] [facility] [address] 09/12/2019 12:00:00 AM EDT eCW1 ([facility]) Outpatient<td ID="encounterTypeDescripti onID2">GLAUCOMA EVALUATION</td><td>Ronna Guerrero DO</td><td>Andrew Dubois MD [facility]</td><td>09/03/2019</td><td>9:46AM</td><td>10:40AM</td><td><content ID="encounterDiagnosisID2-0">Borderline Glaucoma Ocular Hypertension Right Eye</content>, <content ID="encounterDiagnosisID2-1">Glaucoma Open-angle Primary Left Eye</content></td> Attender: RONNA Blake MD [facility] 09/03/2019 09:46:00 AM EDT - 09/03/2019 10:40:00 AM ED T Glaucoma Open-angle Primary Left EyeBorderline Glaucoma Ocular Hypertension Right EyeGlaucoma Open- angle Primary Left EyeBorderline Glaucoma Ocular Hypertension Right Eye JALEN (Andrew Finley MD [facility]) Glaucoma Open-angle Primary Left 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 Left 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 Outpatient<td ID="encounterTypeDescripti onID1">Argon ALT - Global 90 DAY POST OP</td><td>Ronna Guerrero DO</td><td>Andrew Dubois MD [facility]</td><td>09/21/2019</td><td>09/03/2019 8:00AM</td><td> 8:29AM</td><td><content ID="encounterDiagnosisID1-0">Borderline Glaucoma Ocular Hypertension Right Eye</content>, <content ID="encounterDiagnosisID1-1">Glaucoma Open-angle Primary Left Eye</content></td> Attender: RONNA Blake MD [facility] 09/03/2019 08:00:00 AM EDT - 09/21/2019 08:29:00 AM ED T Glaucoma Open-angle Primary Left EyeBorderline Glaucoma Ocular Hypertension Right EyeGlaucoma Open-angle Primary Left EyeBorderline Glaucoma Ocular Hypertension Right Eye JALEN (Andrew Finley MD [facility]) Glaucoma Open-angle Primary Left 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 Left 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 Outpatient Attender: ANDREW Sheets/Jam/Nelson/Robert leung 08/29/2019 10:30:00 AM EDT MED[facility] ([facility] [place] [address] [facility] [address] 08/16/2019 12:00:00 AM EDT eCW1 ([facility]) Unknown [address] [facility] [address] 08/06/2019 12:00:00 AM EDT eCW1 ([facility]) Outpatient Referrer: Andrew Leo DO 08/02/2019 04:57:00 AM EDT [facility] Outpatient [address] [facility] [place] [address] 08/02/2019 12:00:00 AM EDT eCW1 ([facility]) Unknown [address] [facility] [place] [address] 08/02/2019 12:00:00 AM EDT eCW1 ([facility]) Outpatient<td ID="encounterTypeDescripti onID3">5 Month Follow-Up</td><td>Andrew Dubois MD, FACS</td><td>Andrew Dubois MD [facility]</td><td>08/01/2019</td><td>9:39AM</td><td>10:09AM</td><td><content ID="encounterDiagnosisID3-0">Borderline Glaucoma Ocular Hypertension Left Eye</content>, <content ID="encounterDiagnosisID3-1">Corneal Dystrophy Endothelial Fuchs'</content>, <content ID="encounterDiagnosisID3-2">Dry Eye Syndrome Both Eyes</content>, <content ID="encounterDiagnosisID3-3">Retinopathy Hypertensive Both Eyes</content>, <content ID="encounterDiagnosisID3-4">Corneal Dystrophy Anterior Both Eyes</content></td> Attender: Andrew Finley MD, FACS Andrew Dubois MD [facility] 08/01/2019 09:39:00 AM EDT - 08/01/2019 10:09:00 AM EDT Corneal Dystrophy Anterior Both EyesBord doug Glaucoma Ocular Hypertension Left EyeCorneal Dystrophy Anterior Both EyesBorderline Glaucoma Ocular Hypertension Left EyeRetinopathy Hypertensive Both EyesDry Eye Syndrome Both EyesCorneal Dystrophy Endothelial Fuchs'Retinopathy Hypertensive Both EyesDry Eye Syndrome Both EyesCorneal Dystrophy Endothelial Fuchs' JALEN (Andrew Finley MD [facility]) 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 [address] [address] 07/26/2019 12:00:00 AM EDT [facility]CW1 [facility] [address] [address] 07/20/2019 12:00:00 AM EDT [facility]CW1 [facility] [address] [address] 07/04/2019 12:00:00 AM EDT [facility]CW[facility] [address] [facility] [address] 07/04/2019 12:00:00 AM EDT eCW1 [facility] Outpatient Referrer: Andrew Leo DO 07/03/2019 04:41:00 AM EDT [facility] [address] [facility] [address] 07/03/2019 12:00:00 AM EDT eCW1 [facility] Outpatient Referrer: Andrew Leo DO 06/30/2019 07:51:00 AM EDT [facility] [address] [place] [address], [place] [address] 06/29/2019 12:00:00 AM EDT eCW1 [facility]) [facility] [address] [place] [address], [place] [address] 06/28/2019 12:00:00 AM EDT eCW1 [facility]) [facility] [address] [place] [address], [place] [address] 06/20/2019 12:00:00 AM EDT eCW1 [facility]) [facility] [address] [place] [address], [place] [address] 05/01/2019 12:00:00 AM EST eCW1 [facility]) [facility] [address] [place] [address], [place] [address] 04/24/2019 12:00:00 AM EST eCW1 [facility]) Outpatient Attender: Andrew Leo DO Main Office 04/23/2019 09:00:00 AM EST [facility] ([facility] Outpatient Referrer: Andrew Leo DO 04/17/2019 03:29:00 PM EST [facility] Outpatient Referrer: Andrew Leo DO 04/17/2019 03:29:00 PM EST [facility] [address] [place] [address], [place] [address] 04/13/2019 12:00:00 AM EST [facility]CW1 [facility] [address] [address] 04/11/2019 12:00:00 AM EST [facility]CW1 [facility] [address] [address] 04/11/2019 12:00:00 AM EST [facility]CW1 [facility] [address] [address] 04/10/2019 12:00:00 AM EST [facility]CW1 [facility] [address] [address] 04/03/2019 12:00:00 AM EST [facility]CW1 [facility] [address] [address] 04/02/2019 12:00:00 AM EST eCW1 ([facility]) [address] [address] 03/28/2019 12:00:00 AM EST eCW1 ([facility]) Outpatient<td ID="encounterTypeDescripti onID6">VISUAL FIELD 24- 2</td><td></td><td>Andrew Dubois MD [facility]</td><td>03/26/2019</td><td>9:08AM</td><td>10:20AM</td><td></td> Andrew Dubois MD [facility] 03/26/2019 09:08:00 AM EST - 03/26/2019 10:20:00 AM EST JALEN (Andrew Finley MD [facility]) Outpatient<td ID="encounterTypeDescripti onID5">TESTING - VISUAL FIELD & OCT</td><td>Ronna Guerrero DO</td><td>Andrew Dubois MD [facility]</td><td>03/26/2019</td><td>9:08AM</td><td>10:21AM</td><td><content ID="encounterDiagnosisID5-0">Borderline Glaucoma Ocular Hypertension Left Eye</content></td> Attender: RONNA Blake MD [facility] 03/26/2019 09:08:00 AM EST - 03/26/2019 10:21:00 AM EST Borderline Glaucoma Ocular Hypertension Left EyeBorderline Glaucoma Ocular Hypertension Left Eye JALEN (Andrew Finley MD [facility]) 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 Outpatient<td ID="encounterTypeDescripti onID4">OCT DISC</td><td></td><td>Andrew Dubois MD [facility]</td><td>03/26/2019</td><td>9:08AM</td><td>10:21AM</td><td></td> Andrew Dubois MD [facility] 03/26/2019 09:08:00 AM EST - 03/26/2019 10:21:00 AM EST JALEN (Andrew Finley MD [facility]) [facility] [address] [facility] [address] 03/23/2019 12:00:00 AM EST eCW1 ([facility]) [facility] [address] [place] [address], [place] [address] 03/22/2019 12:00:00 AM EST [facility]CW1 [facility] [address] [place] [address], [place] [address] 03/20/2019 12:00:00 AM EST eCW1 ([facility]) Outpatient Referrer: Andrew Leo DO 03/18/2019 09:07:00 PM EST [facility] [address] [place] [address], [place] [address] 03/16/2019 12:00:00 AM EST eCW1 [facility] [address] [facility] [address] 03/15/2019 12:00:00 AM EST eCW1 ([facility]) [facility] [address] [place] [address], [place] [address] 03/15/2019 12:00:00 AM EST eCW1 ([facility]) Outpatient<td ID="encounterTypeDescripti onID7">IOP CHECK</td><td>Ronna Guerrero DO</td><td>Andrew Dubois MD [facility]</td><td>03/14/2019</td><td>8:32AM</td><td>9:50AM</td><td><content ID="encounterDiagnosisID7-0">Borderline Glaucoma Ocular Hypertension Left Eye</content></td> Attender: RONNA Blake MD [facility] 03/14/2019 08:32:00 AM EST - 03/14/2019 09:50:00 AM EST Borderline Glaucoma Ocular Hypertension Left EyeBorderline Glaucoma Ocular Hypertension Left Eye JALEN (Andrew Finley MD [facility]) 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 [address] [place] [address] 03/14/2019 12:00:00 AM EST eCW1 ([facility]) [address] [place] [address] 03/12/2019 12:00:00 AM EST eCW1 ([facility]) [address] [place] [address] 03/09/2019 12:00:00 AM EST eCW1 ([facility]) Outpatient PORTER 02/24/2019 12:12:44 AM EST [facility] Outpatient CHELSEA 02/23/2019 12:00:00 AM EST [facility] Medications Medication Brand Name Start Date Product Form Dose Route Admi nistrative Instructions Pharmacy Instructions Status Indications Reaction Description Data Source(s) pantoprazole 40 MG Delayed Release Oral Tablet Pantoprazole Sodium 10/08/2019 12:00:00 AM EDT ORAL active M HERNANDEZ ([facility], ) Sucralfate 1000 MG Oral Tablet Sucralfate 1 GM Sucralfate 1 GM 06/27/2019 12:00:00 AM EDT 1.0 {tablet_on_an_empty_stomach} active Sucralfate 1 GM eCW1 ([facility]) Albuterol 0.83 MG/ML Inhalant Solution Albuterol Sulfa te (2.5 MG/3ML) 0.083% Albuterol Sulfate (2.5 MG/3ML) 0.083% 06/27/2019 12:00:00 AM EDT 3.0 {ml} active Albuterol Sulfate (2.5 MG/3M L) 0.083% eCW1 ([facility]) fidaxomicin 200 MG Oral Tablet [Dificid] Dificid 200 MG Difi esmer 200 MG 06/27/2019 12:00:00 AM EDT 1.0 {tablet} active Dificid 200 MG eCW1 ([facility]) Sucralfate 1000 MG Oral Tablet Sucralfate 1 GM Sucralfate 1 GM 06/27/2019 12:00:00 AM EDT 1.0 {tablet_on_an_empty_stomach} active Sucralfate 1 GM eCW1 ([facility]) Albuterol 0.83 MG/ML Inhalant Solution Albuterol Sulfa te (2.5 MG/3ML) 0.083% Albuterol Sulfate (2.5 MG/3ML) 0.083% 06/27/2019 12:00:00 AM EDT 3.0 {ml} active Albuterol Sulfate (2.5 MG/3M L) 0.083% eCW1 ([facility]) fidaxomicin 200 MG Oral Tablet [Dificid] Dificid 200 MG Difi esmer 200 MG 06/27/2019 12:00:00 AM EDT active 1 tablet eCW1 ([facility]) Albuterol 0.83 MG/ML Inhalant Solution Albuterol Sulfa te (2.5 MG/3ML) 0.083% Albuterol Sulfate (2.5 MG/3ML) 0.083% 06/27/2019 12:00:00 AM EDT 3.0 {ml} active Albuterol Sulfate (2.5 MG/3M L) 0.083% eCW1 ([facility]) Albuterol 0.83 MG/ML Inhalant Solution Albuterol Sulfa te (2.5 MG/3ML) 0.083% Albuterol Sulfate (2.5 MG/3ML) 0.083% 06/27/2019 12:00:00 AM EDT 3.0 {ml} active Albuterol Sulfate (2.5 MG/3M L) 0.083% eCW1 ([facility]) Sucralfate 1000 MG Oral Tablet Sucralfate 1 GM Sucralfate 1 GM 06/27/2019 12:00:00 AM EDT 1.0 {tablet_on_an_empty_stomach} active Sucralfate 1 GM eCW1 ([facility]) fidaxomicin 200 MG Oral Tablet [Dificid] Dificid 200 MG Difi esmer 200 MG 06/27/2019 12:00:00 AM EDT 1.0 {tablet} suspended Dificid 200 MG eCW1 ([facility]) Albuterol 0.83 MG/ML Inhalant Solution Albuterol Sulfa te (2.5 MG/3ML) 0.083% Albuterol Sulfate (2.5 MG/3ML) 0.083% 06/27/2019 12:00:00 AM EDT active 3 ml eCW1 ([facility]) fidaxomicin 200 MG Oral Tablet [Dificid] Dificid 200 MG Difi esmer 200 MG 06/27/2019 12:00:00 AM EDT 1.0 {tablet} suspended Dificid 200 MG eCW1 ([facility]) Albuterol 0.83 MG/ML Inhalant Solution Albuterol Sulfa te (2.5 MG/3ML) 0.083% Albuterol Sulfate (2.5 MG/3ML) 0.083% 06/27/2019 12:00:00 AM EDT 3.0 {ml} active Albuterol Sulfate (2.5 MG/3M L) 0.083% eCW1 ([facility]) Sucralfate 1000 MG Oral Tablet Sucralfate 1 GM Sucralfate 1 GM 06/27/2019 12:00:00 AM EDT 1.0 {tablet_on_an_empty_stomach} active Sucralfate 1 GM eCW1 ([facility]) Sucralfate 1000 MG Oral Tablet Sucralfate 1 GM Sucralfate 1 GM 06/27/2019 12:00:00 AM EDT active 1 tablet on an empty stomach eCW1 ([facility]) fidaxomicin 200 MG Oral Tablet [Dificid] Dificid 200 MG Difi esmer 200 MG 06/27/2019 12:00:00 AM EDT 1.0 {tablet} active Dificid 200 MG eCW1 ([facility]) fidaxomicin 200 MG Oral Tablet [Dificid] Dificid 200 MG Difi esmer 200 MG 06/27/2019 12:00:00 AM EDT active 1 tablet eCW1 ([facility]) Albuterol 0.83 MG/ML Inhalant Solution Albuterol Sulfa te (2.5 MG/3ML) 0.083% Albuterol Sulfate (2.5 MG/3ML) 0.083% 06/27/2019 12:00:00 AM EDT 3.0 {ml} active Albuterol Sulfate (2.5 MG/3M L) 0.083% eCW1 ([facility]) Sucralfate 1000 MG Oral Tablet Sucralfate 1 GM Sucralfate 1 GM 06/27/2019 12:00:00 AM EDT 1.0 {tablet_on_an_empty_stomach} active Sucralfate 1 GM eCW1 ([facility]) Sucralfate 1000 MG Oral Tablet Sucralfate 1 GM Sucralfate 1 GM 06/27/2019 12:00:00 AM EDT active 1 tablet on an empty stomach eCW1 ([facility]) fidaxomicin 200 MG Oral Tablet [Dificid] Dificid 200 MG Difi esmer 200 MG 06/27/2019 12:00:00 AM EDT 1.0 {tablet} active Dificid 200 MG eCW1 ([facility]) Albuterol 0.83 MG/ML Inhalant Solution Albuterol Sulfa te (2.5 MG/3ML) 0.083% Albuterol Sulfate (2.5 MG/3ML) 0.083% 06/27/2019 12:00:00 AM EDT active 3 ml eCW1 ([facility]) Pilocarpine Hydrochloride 10 MG/ML Ophthalmic Solution Pilocarpine HCl 1 % Pilocarpine HCl 1 % 03/08/2019 12:00:00 AM EST active Pilocarpine HCl 1 % eCW1 ([facility]) Pilocarpine Hydrochloride 10 MG/ML Ophthalmic Solution Pilocarpine HCl 1 % Pilocarpine HCl 1 % 03/08/2019 12:00:00 AM EST active Pilocarpine HCl 1 % eCW1 ([facility]) Pilocarpine Hydrochloride 10 MG/ML Ophthalmic Solution Pilocarpine HCl 1 % Pilocarpine HCl 1 % 03/08/2019 12:00:00 AM EST active 1 drop into the left eye eCW1 ([facility]) Sucralfate 100 MG/ML Oral Suspension Sucralfate 1 GM/10ML Wall cralfate 1 GM/10ML 03/08/2019 12:00:00 AM EST active 10 ml on an empty stomach eCW1 ([facility]) Sucralfate 100 MG/ML Oral Suspension Sucralfate 1 GM/10ML Wall cralfate 1 GM/10ML 03/08/2019 12:00:00 AM EST active 10 ml on an empty stomach eCW1 ([facility]) Pilocarpine Hydrochloride 10 MG/ML Ophthalmic Solution Pilocarpine HCl 1 % Pilocarpine HCl 1 % 03/08/2019 12:00:00 AM EST active Pilocarpine HCl 1 % eCW1 ([facility]) Pilocarpine Hydrochloride 10 MG/ML Ophthalmic Solution Pilocarpine HCl 1 % Pilocarpine HCl 1 % 03/08/2019 12:00:00 AM EST active Pilocarpine HCl 1 % eCW1 ([facility]) Sucralfate 100 MG/ML Oral Suspension Sucralfate 1 GM/10ML Wall cralfate 1 GM/10ML 03/08/2019 12:00:00 AM EST suspended 10 ml on an empty stomach eCW1 ([facility]) Pilocarpine Hydrochloride 10 MG/ML Ophthalmic Solution Pilocarpine HCl 1 % Pilocarpine HCl 1 % 03/08/2019 12:00:00 AM EST active 1 drop into the left eye eCW1 ([facility]) Pilocarpine Hydrochloride 10 MG/ML Ophthalmic Solution Pilocarpine HCl 1 % Pilocarpine HCl 1 % 03/08/2019 12:00:00 AM EST active Pilocarpine HCl 1 % eCW1 ([facility]) Pilocarpine Hydrochloride 10 MG/ML Ophthalmic Solution Pilocarpine HCl 1 % Pilocarpine HCl 1 % 03/08/2019 12:00:00 AM EST active 1 drop into the left eye eCW1 ([facility]) Pilocarpine Hydrochloride 10 MG/ML Ophthalmic Solution Pilocarpine HCl 1 % Pilocarpine HCl 1 % 03/08/2019 12:00:00 AM EST active Pilocarpine HCl 1 % eCW1 ([facility]) Pilocarpine Hydrochloride 10 MG/ML Ophthalmic Solution Pilocarpine HCl 1 % Pilocarpine HCl 1 % 03/08/2019 12:00:00 AM EST active 1 drop into the left eye eCW1 ([facility]) Pilocarpine Hydrochloride 10 MG/ML Ophthalmic Solution Pilocarpine HCl 1 % Pilocarpine HCl 1 % 03/08/2019 12:00:00 AM EST active 1 drop into the left eye eCW1 ([facility]) Pilocarpine Hydrochloride 10 MG/ML Ophthalmic Solution Pilocarpine HCl 1 % Pilocarpine HCl 1 % 03/08/2019 12:00:00 AM EST active 1 drop into the left eye eCW1 ([facility]) Insurance Providers Payer name Policy type / Coverage type Policy ID Covered republican ID Covered republican's relationship to machado Policy Machado Plan Information WELLCARE [id number] SP [id number] WELLCARE O [id number] S [id number] MEDICARE [id number] SP [id number] AETNA MEDICARE [id number] SP [id number] AETNA MEDICARE [id number] SP [id number] MEDICARE [id number] A AETNA MEDICARE O [id number] S [id number] AETNA MEDICARE [id number] SP [id number] AETNA MEDICARE [id number] SP [id number] MEDICARE COMPLETE [id number] SP [id number] MEDICARE COMPLETE [id number] SP [id number] MEDICARE COMPLETE [id number] SP [id number] MEDICARE COMPLETE [id number] SP [id number] [facility] [id number] SP [id number] TODAYS OPTIONSDO NOT USE [id number] SP [id number] [place] 306/806 [id number] [place] 306/806 [id number] [place] 306/806 [id number] SP [id number] AETNA MEDICARE [id number] AETNA MEDICARE O [id number] S [id number] ANSI-Medicare Part B [id number] ANSI-Medicare Part B [id number] ANSI-Medicare Part B [id number] AETNA MEDICARE [id number] SP [id number] ANSI-Medicare Part B [id number] ANSI-Medicare Part B [id number] ANSI-Medicare Part B [id number] MEDICARE [id number] SP [id number] ANSI-Medicare Part B [id number] ANSI-Medicare Part B [id number] ANSI-Medicare Part B [id number] [place] Medigap Part B [id number] Family Dep endent [id number] [employer] Options Commercial [id number] Self [id number] [facility] [employer] [id number] Self [id number] Aetna Medicare Commercial [id number] Self [id number] AETNA MEDICARE [id number] SP [id number] AETNA MEDICARE O [id number] S [id number] Aetna Medicare Commercial [id number] Self [id number] [place] [facility] [id number] Family Dep endent [id number] [employer] Options Commercial [id number] Self [id number] ANSI-Medicare Part B [id number] ANSI-Medicare Part B [id number] ANSI-Medicare Part B [id number] Aetna ([facility]) Medigap Part B [id number] Self MEB [id number] [employer] Workers Compensation [id number] Self [id number] Medicare Dme Supplies Medigap Part B [id number] Self [id number] Medicare [place] Primary [id number] Self [id number] Aetna (MCR) Medigap Part B [id number] Self MEB [id number] [employer] Workers Compensation [id number] Self [id number] Medicare Dme Supplies Medigap Part B [id number] Self [id number] [place] Primary [id number] Self [id number] Aetna (MCR) Medigap Part B [id number] Self MEB [id number] [employer] Workers Compensation [id number] Self [id number] Medicare Dme Supplies Medigap Part B [id number] Self [id number] Medicare [place] Primary [id number] Self [id number] ANSI-Medicare Part B [id number] ANSI-Medicare Part B [id number] ANSI-Medicare Part B [id number] AETNA MEDICARE [id number] SP [id number] [employer] Workers Compensation [id number] Self [id number] Aetna (pr) Medigap Part B [id number] Self [id number] Medicare Dme Supplies Medigap Part B [id number] Self [id number] [place] Primary [id number] Self [id number] MEDICARE [id number] SP [id number] A BS [place] Medigap Part B [id number] Family Dep endent [id number] Todays Options Commercial [id number] Self [id number] [facility] Commercial [id number] Self [id number] [facility] O [id number] S [id number] MEDICARE COMPLETE-UHC P [id number] S [id number] [facility] [id number] SP [id number] Problems, Conditions, and Diagnoses Code Display Name Description Problem Type Effective Dates Data Source(s) 174525239 Hypoxemia Hypoxemia Problem 01/30/2020 12:00:00 AM JORGE UBRK ([facility], ) H40.1133 Glaucoma Open-angle Primary Glaucoma Open-angle Primar y Problem 10/24/2019 12:00:00 AM EDT JALEN (Andrew Finley MD [facility]) [id number] 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 Problem 09/03/2019 12:00:00 AM EDT DEBBI BARILLAS (Andrew Finley MD [facility]) H40.1121 Glaucoma Open-angle Primary Left Eye Gla ucoma Open-angle Primary Left Eye Problem 09/03/2019 12:00:00 AM EDT JALEN (Haroldo Finley MD [facility]) [id number] 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 Problem 09/03/2019 12:00:00 AM EDT DEBBI BARILLAS (Andrew Finley MD [facility]) H40.1121 Glaucoma Open-angle Primary Left Eye Gla ucoma Open-angle Primary Left Eye Problem 09/03/2019 12:00:00 AM EDT JALEN (Haroldo Finley MD [facility]) I50.32 [id number] Chronic diastolic congestive heart failur e Problem 08/02/2019 12:00:00 AM EDT eCW1 ([facility]) K74.60 29922345 Unspecified cirrhosis of liver Problem 08/02/2019 12:00:00 AM EDT eCW1 ([facility]) R18.8 305687477 Other ascites Problem 08/02/2019 12:00:00 AM EDT eCW1 ([facility]) 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 Cor daniel Dystrophy Anterior Both Eyes Problem 08/01/2019 12:00:00 AM EDT JALEN (Haroldo Finley MD [facility]) 99676464 Corneal Dystrophy Anterior Both Eyes Cor daniel Dystrophy Anterior Both Eyes Problem 08/01/2019 12:00:00 AM EDT JALEN (Haroldo Finley MD [facility]) D50.0 851478021 Anemia due to GI blood loss Problem 07/04/19 12:00:00 AM EDT eCW1 ([facility]) D50.0 923849116 Anemia due to GI blood loss Problem 07/04/19 12:00:00 AM EDT eCW1 ([facility]) 779583228 Hypoxemia Hypoxemia Problem 04/23/2019 12:00:00 AM ES T MEDENT ([facility] 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 04/10/2019 12: 00:00 AM EST eCW1 ([facility]) D89.0 60353553 Polyclonal gammopathy Problem 04/10/2019 12: 00:00 AM EST eCW1 ([facility]) V43.1 Pseudophakia Pseudophakia Problem 03/14/2019 12:00:00 A M EST JALEN (Andrew Finley MD [facility]) V43.1 Pseudophakia Pseudophakia Problem 03/14/2019 12:00:00 A M EST JALEN (Andrew Finley MD [facility]) Surgeries/Procedures Procedure Description Date Indications Data Source(s) Spirometry 01/30/2020 12:00:00 AM EST M EDENT ([facility], ) Intermediate Eye Exam Established Patient (25) Interme diate Eye Exam Established Patient (25) 10/24/2019 12:00:00 AM EDT JALEN (Haroldo Finley MD [facility]) Visual Field (GA) Visual Field (GA) 10/24/2019 12:00:00 AM EDT JALEN (Andrew Finley MD [facility]) Discission of membranous cataract, secondary (procedur e) 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 09/21/2019 12:00:00 AM EDT JALEN (Andrew Finley MD [facility]) Intermediate Eye Exam Established Patient Intermediate Eye Exam Established Patient 09/21/2019 12:00:00 AM EDT JALEN (Haroldo Finley MD [facility]) Endoscopy Upper GI Biopsy 09/20/2019 12:00:00 AM EDT MEDENT ([facility]) Intermediate Eye Exam Established Patient Intermediate Eye Exam Established Patient 09/03/2019 12:00:00 AM EDT JALEN (Haroldo Finley MD [facility]) Intermediate Eye Exam Established Patient Intermediate Eye Exam Established Patient 08/01/2019 12:00:00 AM EDT JALEN (Haroldo Finley MD [facility]) Transitional Care NO CHARGE Visit 07/26/2019 12:00:00 AM EDT eCW1 ([facility]) TRANS CARE MGMT 7 DAY DISCH 07/04/2019 12:00:00 AM EDT eCW1 ([facility]) Office Visit, Est Pt., Level 2 FC 07/04/2019 12:00:00 AM EDT eCW1 ([facility]) Office Visit, Est Pt., Level 4 PC 05/01/2019 12:00:00 AM EST eCW1 ([facility]) RESPIRATORY FLOW VOLUME LOOP 04/23/2019 12:00:00 AM ES T MEDENT ([facility] Visual Field (WAIVER OF LIABILITY ON FILE (ABN)) Visua l Field (WAIVER OF LIABILITY ON FILE (ABN)) 03/26/2019 12:00:00 AM EST JALEN (Anrdew Finley MD [facility]) Scodi, optic nerve with interpretation a nd report (WAIVER OF LIABILITY ON FILE (ABN)) Scodi, optic nerve with interpretation a nd report (WAIVER OF LIABILITY ON FILE (ABN)) 03/26/2019 12:00:00 AM EST JALEN (Haroldo Finley MD [facility]) Corneal Pachymetry (WAIVER OF LIABILITY ON FILE (ABN)) Corneal Pachymetry (WAIVER OF LIABILITY ON FILE (ABN)) 03/26/2019 12:00:00 AM EST JALEN (Andrew Finley MD [facility]) Intermediate Eye Exam Established Patient Intermediate Eye Exam Established Patient 03/14/2019 12:00:00 AM EST JALEN (Haroldo Finley MD [facility]) Results ID Date Data Source [id number] 01/30/2020 09:04:00 AM EST MEDENT ([facility], ) Name Value Range Interpretation Code Description Data Cora rce(s) Supporting Document(s) PDFReport Laboratory test result MEDENT ([facility], ) FVC-Pre 1.32 L MEDENT ([facility], ) FVC-Pred 2.02 L MEDENT ([facility]) FVC-LLN 1.43 L MEDENT ([facility]) FVC-%Pred-Pre 65 L MEDENT ([facility]) Fev1-Pred 1.48 L MEDENT ([facility]) Fev1-LLN 0.99 L MEDENT ([facility]) Fev1-Pre 1.03 L MEDENT ([facility]) Fev1-%Pred-Pre 69 L MEDENT ([facility]) Fev6-Pre 1.32 L MEDENT ([facility]) Fev6-%Pred-Pre 69 L MEDENT ([facility]) Fev6-Pred 1.90 L MEDENT ([facility]) Zwf3oys-Fvcc 74 % MEDENT ([facility]) Fev6-LLN 1.32 L MEDENT ([facility]) Ail3ijy-Grz 78 % MEDENT ([facility]) Mhe2gfy-TES 64 % MEDENT ([facility]) Lur1zkk-%Pred-Pre 105 % MEDENT ([facility]) Oaz4sxx-Lmep 94 % MEDENT ([facility]) Eba0isg-Iqg 100 % MEDENT ([facility]) Xyo5oqk-%Pred-Pre 106 % MEDENT ([facility]) FEFMax-Pred 4.05 L/E/sec MEDENT ([facility]) FEFMax-Pre 2.62 L/E/sec MEDENT ([facility]) FEFMax-LLN 2.60 L/E/sec MEDENT ([facility]) FEFMax-%Pred-Pre 64 L/E/sec MEDENT ([facility]) Rwc0455-%Pred-Pre 71 L/E/sec MEDENT ([facility]) Ukx2510-Tfji 1.13 L/E/sec MEDENT ([facility]) Mxt8067-Vuf 0.81 L/E/sec MEDENT ([facility]) ExpTime-Pre 4.53 sec MEDENT ([facility]) Ggl6drq0-Cbzt 78 % MEDENT ([facility]) Eza6714-INX 0.08 L/E/sec MEDENT ([facility]) Lvv0req5-Cqk 78 % MEDENT ([facility]) Has0vro0-%Pred-Pre 99 % MEDENT ([facility]) Vzr4zzv0-OLS 69 % MEDENT ([facility]) ID Date Data Source [id number] 09/20/2019 12:36:00 PM EDT [facility] ([facility]) Name Value Range Interpretation Code Description Data Cora rce(s) Supporting Document(s) Surgical pathology study Laboratory test result [facility] ([facility]) FINAL DIAGNOSIS Gastric biopsy: Chronic gastritis with mild architectural distortion, no acute inflammation or features of H. pylori are noted. 10/18/20191548 CLINICAL DIAGNOSIS Gastric ulcer follow up 10/18/20191548 GROSS DIAGNOSIS Received in formalin, labeled "gastric biopsy" are two fragments of tissue, 0.3 and 0.4 cm. All in one. 10/18/20191548 Signed Eli Hi M.D. 10/18/20191548 ID Date Data Source [id number] 09/15/2019 12:00:00 AM EDT [facility] Name Value Range Interpretation Code Description Data Cora rce(s) Supporting Document(s) SARS coronavirus 2 RNA [facility] This lab was ordered by [facility] and reported by [facility]. ID Date Data Source [id number] 08/29/2019 12:18:00 PM EDT [facility] Name Value Range Interpretation Code Description Data Cora rce(s) Supporting Document(s) White Blood Count 9.5 10 4.0-10.0 Normal (applies to non-numeri c results) [facility] ([facility]) Hematocrit 32.8 % 36.0-47.0 Below low normal [facility] ( [facility]) Hemoglobin 10.0 g/dL 12.0-15.5 Below low normal [facility] ( [facility]) Red Blood Count 3.54 10 4.00-5.40 Below low normal [facility] ([facility]) Mean Corpuscular HGB Conc 30.5 g/dL 32.0-36.5 Below low normal [facility] ([facility]) Mean Corpuscular Volume 92.7 fl 80.0-96.0 Normal ( applies to non-numeric results) [facility] ([facility]) Mean Corpuscular Hemoglobin 28.2 pg 27.0-33.0 Norm al (applies to non-numeric results) [facility] ([facility]) Platelet Count, Automated 224 10 150-450 Normal (applies to non-numeric results) [facility] ([facility]) Red Cell Distribution Width 14.4 % 11.5-14.5 Norm al (applies to non-numeric results) [facility] ([facility]) Neutrophils % 62.0 % 36.0-66.0 Normal (applies to non-numeric re sults) [facility] ([facility]) Baso % 0.3 % 0.0-1.0 Normal (applies to non-numeric resul ts) [facility]) Lymph % 23.8 % 24.0-44.0 Below low normal [facility] ( [facility]) [place] % 9.7 % 0.0-5.0 Above high normal [facility] ([facility]) Eos % 3.8 % 0.0-3.0 Above high normal [facility] ([facility]) Immature Granulocyte % 0.4 % 0-3.0 Normal (applies to non-n umeric results) [facility] ([facility]) Neutrophils # 5.9 10 1.5-8.5 Normal (applies to non-numeric re sults) [facility] ([facility]) Nucleated Red Blood Cell % 0.0 % 0-0 Normal (applies to n on-numeric results) [facility] ([facility]) [place] # 0.9 10 0.0-0.8 Above high normal [facility] ([facility]) Lymph # 2.3 10 1.5-5.0 Normal (applies to non-numeric resul ts) [facility]) Eos # 0.4 10 0.0-0.5 Normal (applies to non-numeric resul ts) [facility] ([facility]) Baso # 0.0 10 0.0-0.2 Normal (applies to non-numeric resul ts) [facility]) 09/10/19 (TueSep 09) 02:48 PM ANDREW OSBORN [facility]. ID Date Data Source [id number] 08/29/2019 12:18:00 PM EDT [facility] ([facility]) Name Value Range Interpretation Code Description Data Cora rce(s) Supporting Document(s) Cytoplasmic Neutrop AB Anca-C Laboratory test result Normal (applies to non- numeric results) [facility] ([facility]) Anca-Atypical Laboratory test result Normal (applies t o non-numeric results) [facility] ([facility]) The atypical pANCA pattern has been obse rved in a significant percentage of patients with ulcerative colitis, primary sclerosing cholangitis and autoimmune hepatitis. Perinuclear AB Anca-P Laboratory test result Nor mal (applies to non-numeric results) [facility] ([facility]) The presence of positive fluorescence ex hibiting P-ANCA or C-ANCA patterns alone is not specific for the diagnosis of Ashanti's Granulomatosis (WG) or microscopic polyangiitis. Decisions about treatment should not be based solely on ANCA IFA results. The [employer] Consensus recommends follow up testing of positive sera with both FL- 3 and MPO-ANCA enzyme immunoassays. As m any as 5% serum samples are positive only by EIA. Ref. AM J Clin Pathol 1999;111:507-513. ID Date Data Source [id number] 08/29/2019 12:18:00 PM EDT [facility] ([facility]) Name Value Range Interpretation Code Description Data Cora rce(s) Supporting Document(s) Prothrombin Time 14.7 s 11.8-14.0 Above high normal [facility] Inr 1.18 Normal (applies to non-numeric resul ts) [facility] ([facility]) THERAPUTIC HUMAN INR VALUES INDICATIONS NORMAL RANGES PROPHYLAXIS/TREATMENT OF: VENOUS THROMBOSIS 2.0-3.0 PULMONARY EMBOLISM 2.0-3.0 PREVENTION OF SYSTEMIC EMBOLISM FROM: TISSUE HEART VALVES 2.0-3.0 ACUTE MYOCARDIAL INFARCTION 2.0-3.0 VALVULAR HEART DISEASE 2.0-3.0 ATRIAL FIBRILLATION 2.0-3.0 MECHANICAL VALVES(HIGH RISK) 2.5-3.5 RECURRENT MYOCARDIAL INFARCTION 2.5-3.5 ID Date Data Source [id number] 08/29/2019 12:18:00 PM EDT [facility] ([facility]) Name Value Range Interpretation Code Description Data Cora rce(s) Supporting Document(s) Gamma glutamyl transferase [Enzymatic activity/volume] in Serum or Plasma 29 U/L 5-55 Normal (applies to non-numeric results) [facility]) ID Date Data Source [id number] 08/29/2019 12:18:00 PM EDT [facility] ([facility]) Name Value Range Interpretation Code Description Data Cora rce(s) Supporting Document(s) Ast/Sgot 31 U/L 7-37 Normal (applies to non-numeric resul ts) [facility] ([facility]) Alkaline Phosphatase 143 U/L 45-117 Above high normal [facility] ([facility]) Alt/SGPT 23 U/L 12-78 Normal (applies to non-numeric resul ts) [facility] Bilirubin,Total 0.4 mg/dL 0.2-1.0 Normal (applies to non-numeric results) [facility] ([facility]) Total Protein 7.8 GM/DL 6.4-8.2 Normal (applies to non-numeric re sults) [facility]) Albumin 2.8 GM/DL 3.2-5.2 Below low normal [facility] ( [facility]) Bilirubin,Direct 0.2 mg/dL 0.0-0.2 Normal (applies to non-numeric results) [facility] ([facility]) Albumin/Globulin Ratio 0.6 1.2-2.2 Below low normal [facility] ([facility]) ID Date Data Source [id number] [facility]2019 [facility] Name Value Range Interpretation Code Description Data Cora rce(s) Supporting Document(s) IgA [Mass/volume] in Serum or Plasma 577.0 mg/dL 70-400 Above hig h normal [facility] ([facility]) Tissue transglutaminase IgA Ab [Units/volume] in Serum Labor atory test result 0-3 Normal (applies to non-numeric results) [facility]) Negative 0 - 3 Weak Positive 4 - 10 Positive >10 . Tissue Transglutaminase (tTG) has been identified as the endomysial antigen. Studies have demonstr- ated that endomysial IgA antibodies have over 99% specificity for gluten sensitive enteropathy. Liver-Kidney Microsomal [facility] Laboratory test result 0.0-20.0 Normal (applies to non-numeric results) [facility] ([facility]) Negative 0.0 - 20.0 Equivocal 20.1 - 24.9 Positive >24.9 . LKM type 1 antibodies are detected in patients with autoimmune hepatitis type 2 and in up to 8% of patients with chronic HCV infection. ID Date Data Source [id number] 08/29/2019 12:18:00 PM EDT [facility]) Name Value Range Interpretation Code Description Data Cora rce(s) Supporting Document(s) Hepatitis C Virus [place] Index 0.2 INDEX Normal (appli es to non-numeric results) [facility]) Negative Not infected with HCV, unless recent infection is suspected or other evidence exists to indicate HCV infection. Hepatitis B Surface Antigen Laboratory test result Normal (applies to non- numeric results) [facility] ([facility]) Hepatitis A Antibody Igm Laboratory test result Normal (applies to non-numeric results) [facility] ([facility]) Hepatitis B Core Antibody Igm Laboratory test result Normal (applies to non- numeric results) [facility]) ID Date Data Source [id number] 08/29/2019 12:18:00 PM EDT [facility]) Name Value Range Interpretation Code Description Data Cora rce(s) Supporting Document(s) Iron (Fe) 46 ug/dL 50-170 Below low normal [facility] ( [facility]) Total Iron Binding Capacity 241 ug/dL 250-450 Below low normal [facility] ([facility]) Percent Saturation 19.1 % 13.2-45.0 Normal (applies to non-numer ic results) [facility]) ID Date Data Source [id number] 08/29/2019 12:18:00 PM EDT [facility] ([facility]) Name Value Range Interpretation Code Description Data Cora rce(s) Supporting Document(s) Mitochondria Ab [Units/volume] in Serum Laboratory test result 0 .0-20.0 Normal (applies to non-numeric results) [facility]) Negative 0.0 - 20.0 Equivocal 20.1 - 24.9 Positive >24.9 . Mitochondrial (M2) Antibodies are found in 90-96% of patients with primary biliary cirrhosis. ID Date Data Source [id number] 08/29/2019 12:18:00 PM EDT [facility]) Name Value Range Interpretation Code Description Data Cora rce(s) Supporting Document(s) Antinuclear Antibodies Direct Laboratory test result Normal (applies to non- numeric results) [facility]) Performed at: - [facility] [id number] Cigar Patcher: Estefany Brown MD, Phone: [phone] Performed at: - [facility] [id number] Cigar Patcher: Heena Siu MD, Phone: [phone] ID Date Data Source Comprehensive Metabolic Profile (CMP) 04/10/2019 12:00:00 AM EST eCW1 ([facility]) Name Value Range Interpretation Code Description Data Cora rce(s) Supporting Document(s) 101 70-100 GLUCOSE, FASTING eCW1 ([facility]) 34.1 >39 GLOMERULAR FILTRATION RATE eCW 1 ([facility]) 15 7-18 BLOOD UREA NITROGEN eCW1 ([facility]) 1.56 0.55-1.30 CREATININE FOR GFR eCW1 ([facility]) 107 98-107 CHLORIDE LEVEL eCW1 ([facility]) 4.0 3.5-5.1 POTASSIUM SERUM eCW1 ([facility]) 144 136-145 SODIUM LEVEL eCW1 ([facility]) 31 21-32 CARBON DIOXIDE LEVEL eCW1 ([facility]) 9.8 8.8-10.2 CALCIUM LEVEL eCW1 ([facility]) 28 12-78 ALT/SGPT eCW1 ([facility]) 37 7-37 AST/SGOT eCW1 ([facility]) 138 45-117 ALKALINE PHOSPHATASE eCW1 ([facility]) 7.6 6.4-8.2 TOTAL PROTEIN eCW1 ([facility]) 0.5 0.2-1.0 BILIRUBIN,TOTAL eCW1 ([facility]) 3.0 3.2-5.2 ALBUMIN eCW1 ([facility]) 0.65 1.00-1.93 ALBUMIN/GLOBULIN RATIO eCW1 ([facility]) ID Date Data Source CBC with Differential 04/10/2019 12:00:00 AM EST eCW1 ([facility]) Name Value Range Interpretation Code Description Data Cora rce(s) Supporting Document(s) 8.1 4.0-10.0 WHITE BLOOD COUNT eCW1 ([facility]) 31.6 36.0-47.0 HEMATOCRIT eCW1 ([facility]) 3.35 4.00-5.40 RED BLOOD COUNT eCW1 ([facility]) 9.8 12.0-15.5 HEMOGLOBIN eCW1 ([facility]) 94.3 80.0-96.0 MEAN CORPUSCULAR VOLUME e CW1 ([facility]) 31.0 32.0-36.5 MEAN CORPUSCULAR HGB CONC eCW1 ([facility]) 29.3 27.0-33.0 MEAN CORPUSCULAR HEMOGLOB IN eCW1 ([facility]) 60.3 36.0-66.0 NEUTROPHILS % eCW1 ([facility]) 153 150-450 PLATELET COUNT, AUTOMATED eCW1 ([facility]) 15.1 11.5-14.5 RED CELL DISTRIBUTION WID TH eCW1 ([facility]) 5.6 0.0-3.0 EOS % eCW1 ([facility]) 0.5 0.0-1.0 BASO % eCW1 ([facility]) 21.3 24.0-44.0 LYMPH % eCW1 ([facility]) 11.8 0.0-5.0 MONO % eCW1 ([facility]) 1.7 1.5-5.0 LYMPH # eCW1 ([facility]) 1.0 0.0-0.8 MONO # eCW1 ([facility]) 4.9 1.5-8.5 NEUTROPHILS # eCW1 ([facility]) 0.0 0.0-0.2 BASO # eCW1 ([facility]) 0.5 0.0-0.5 EOS # eCW1 ([facility]) ID Date Data Source RENAL PROFILE 03/16/2019 12:00:00 AM EST eCW1 ([facility]) Name Value Range Interpretation Code Description Data Cora rce(s) Supporting Document(s) 11 7-18 BLOOD UREA NITROGEN eCW1 ([facility]) 84 70-100 GLUCOSE, FASTING eCW1 ([facility]) 45.3 >39 GLOMERULAR FILTRATION RATE eCW 1 ([facility]) 1.22 0.55-1.30 CREATININE FOR GFR eCW1 ([facility]) 144 136-145 SODIUM LEVEL eCW1 ([facility]) 3.8 3.5-5.1 POTASSIUM SERUM eCW1 ([facility]) 30 21-32 CARBON DIOXIDE LEVEL eCW1 ([facility]) 108 98-107 CHLORIDE LEVEL eCW1 ([facility]) 2.5 3.2-5.2 ALBUMIN eCW1 ([facility]) 8.6 8.8-10.2 CALCIUM LEVEL eCW1 ([facility]) 3.2 2.5-4.9 PHOSPHORUS LEVEL eCW1 ([facility]) ID Date Data Source VITAMIN B12 LEVEL 03/16/2019 12:00:00 AM EST eCW1 ([facility]) Name Value Range Interpretation Code Description Data Cora rce(s) Supporting Document(s) [id number] VITAMIN B12 LEVEL eCW1 ([facility]) ID Date Data Source SERUM PROTEIN ELECTROPHORESIS 03/16/2019 12:00:00 AM EST eCW 1 ([facility]) Name Value Range Interpretation Code Description Data Cora rce(s) Supporting Document(s) 6.2 6.4-8.2 TOTAL PROTEIN eCW1 ([facility]) ID Date Data Source Reticulocyte Count Sysmex 03/16/2019 12:00:00 AM EST eCW1 ([facility]) Name Value Range Interpretation Code Description Data Cora rce(s) Supporting Document(s) 0.9 0.5-1.5 RETICULOCYTE % eCW1 ([facility]) ID Date Data Source H PYLORI QUALITATIVE IGG 03/16/2019 12:00:00 AM EST eCW1 ([facility]) Name Value Range Interpretation Code Description Data Cora rce(s) Supporting Document(s) NEGATIVE NEGATIVE H PYLORI QUALITATIVE IgG eCW1 ([facility]) ID Date Data Source [id number] 02/24/2019 12:06:37 AM EST [facility] Name Value Range Interpretation Code Description Data Cora rce(s) Supporting Document(s) &PDF [facility] TBVQXz9dPiAVHfCw81/HCNhvLRFbw1IgYVhwVLx6ZKziGWHmR3OukVjrLOLBI6vVPchXWVYSIvYgTUAQ pL0 [file] 3LxUrKzTHj/xbZkJE2/Wall+7Q+7RlAdQuxFOK//WHiEPdkJ5VRpTIlIpzqNt28QR2kvIM62S6/aTH7VZH gaKi/NrEwB+DDm4KI2R/q+p1qKXkgdTl92m+JG3rEa4pIgMf4QmL0o+K4mh+WMnvkI+CY+dnSpy+s/vp client services k/fjpJOrZXqd0rI9g5ekPn9JUQACvqzlu0EsC8lYgh Ally/DYnts4Wg/Hx69nGDtN/RXFarU2T9NNDa8YFJhieD4QN/CA3mDqJTmMc3262GZxJE9dUIgjwYeby1 [file] ICAgICAgICAgICAgICAgICAgICAgICAgICAgICAgICAgICAgICAgICAgICAgICAgICAgICAgICAgICAg VLLoFGYfTJIlHH2XVJIhMSRcGPNxUGHmRJTtRXBdFMJeWJGcZFLeSIKyEJVgOOGlJAPxCCXmNXXjHILm ICAgICAgICAgICAgICAgICAgICAgICAgICAgICAgIC WcODHdVMIoSSYbVIOhJCHcGOScJT2ZADZdPKOfOOUhGBGxNTJcCQAvDVRsFQNlKPHvUXScEDXoDSEoRC AgICAgICAgICAgICAgICAgICAgICAgICAgICAgICAgICAgICAgICAgICAgICAgICAgICAgICAgICAgIC LcDQ7ZRZRmUKLiCHTxUCOhDBXlDALgTCXbOERjPMSo ICAgICAgICAgICAgICAgICAgICAgICAgICAgICAgICAgICAgICAgICAgICAgICAgICAgICAgICAgICAg FEQuPWSpGRGwGPJdMB1LHVQiENTqUISaOZBbTMTmIFMxONZuMEJmZHKhWKQbEVGnIBFrOEGdVKDbCSXc ICAgICAgICAgICAgICAgICAgICAgICAgICAgICAgIC PhAMAuQGEqWHZwVCCjAJUxUSGyUNMnCZ4EGFAwGZJsYGLmPSYjJLSsHLEwSOZbFRJiOCPhVAKrZOOjCM AgICAgICAgICAgICAgICAgICAgICAgICAgICAgICAgICAgICAgICAgICAgICAgICAgICAgICAgICAgIC QqJUWtMC1DYXVvTPAmHMWjMBXaKCSdMJDpICHhQLLr ICAgICAgICAgICAgICAgICAgICAgICAgICAgICAgICAgICAgICAgICAgICAgICAgICAgICAgICAgICAg TAJzWNRbUDQyZQCfZUIwJM5INSClGCQeUATlNYFoIWRlYOKqKQFpQHYeLNArLXAbBQNaTLXiTHZlKLCa ICAgICAgICAgICAgICAgICAgICAgICAgICAgICAgIC PzNOQgCNAyZQVgGVOiMGKbHPBlPIYfYUTyUX0KKYQwMFLnDTBkGZUbHZRuAQOgKGPwSSKvZPYvROZhXW AgICAgICAgICAgICAgICAgICAgICAgICAgICAgICAgICAgICAgICAgICAgICAgICAgICAgICAgICAgIC XjFVMdZMOvJZ2NNGKpDCRcKDAyVRAcEKQkNMZpBWYe ICAgICAgICAgICAgICAgICAgICAgICAgICAgICAgICAgICAgICAgICAgICAgICAgICAgICAgICAgICAg NUQhZQWnAUHrLGKcYYIsRUOiKA8VRY67jKQvf6F9EQNdOE3kypn/Xj9GLXyzqyHdxYRsPV2IRtHkWK3c yg4FBlYaYG1fnt2DYQoALwEgW5P1wPAsFIIoYYXDPj HsJ93zRGdzUa61UIntVDIiVtOyKDu2Wh0XCdAnP1hgOCPsVxS5PPMfHkG6FNScJsJeFSviYN2Ww2UzlF AyDQo+Jn6PEZ5ip8AeDGhmIbLrNN0ymn3MEHqLAjAuJ5Q2aDDkE4D8RCsjPj2TRLAtMDHlEfGbNXFQOD ieCK6EMI4gesW5ND5BkDEdCYYoPQVwvKYlUYs4Z60f gBWmLSpyKT2DWAR+Samm+Vg6SCQQaDHJmKYZcHdGlKFREWbEyH69tmUBoJFGfYUPwWONzMt8SWOGcC2Ch gpMsdKjrenPhYHAqIEWOIY6KVOijmeFuwHMsvRdwNB94eKzlZF2JIl6AOwMnJV3cwu0KaVMaVr1PMKTh ZN0CVAUyRJXzKZEwZRG8ZUCdCbTeQYydUECbFATgKY P9PLNiWBEsSD5WAgTsUVKmAOZ8TMnhXLBlFNXjcz0TNRAaZTU3MRY9UKZhGJGeYAMrAEdbTHXlNKDqBd BsVCLoBPBfWF2KXrKvINSeFRK9ZoqqPGJxHTBfxy7RCURaYMDcMbe3DhAaZUYoVYUuDBroCQMuHVR6Bi N3YVEoXYYgCG2QRoTpSPCmKXW6FwSsYUYkHQZtuy9N VGLeRWRbTrcpTqPtRIFpQZMeVAsfUNCpWCV2IDJ2WJLvNECfXJ4LLrAtUXLwNDtjXXfzUWSvDGEwaa4D MGZbGYBfVMR5CDXsURVoVKZaPOhhKWDkUZW8XMuyUTKxIUYeKH4YXnNuFZAuZGz1BRzxBAAjKXNmyj7U MDAwMDAxMzUxNCAwMDAwMCBuDQowMDAwMDEzODMxID CkLRUfJR1PXySmYTQnRKFsKJScXNZqWUBnnf3JETKqAQGxBCK5ToEtKNFvYYVgGEsaRNHmWJU4RDSxUM ZkTLXuXA4PNyDuKNOqJCKbXeFrXGGeEQQded4ZLJIdQBTsKUD4JqWxBLZtCEPtAOgwFLXvPGK7RuQyDF KyIJJcIA9QGvTbLOVdFnH4ICJqRAPjVCOste5FYXRs CHXmSBGcIaBqJNGqMYAaZAxfBMJeDWI9DkZkOFLpEDKvOR5RInTqNOPoLyc3JuQiDXSjMCTgba7MCJVa IKF3YiR7JDXvEMZaDBNyNKqdGSAySKOnXRp3NNZcVPWzQI2RYpXfCBAbEyE8CpWkWJIkVMJtav9VXTAn RLS6ETDvYQUvGGObLDHwHHgnLOZrNMj9Stf5UPVxSS JlDO1RDqMvQBVoMOgcVEoeXXCoTXLkcm9WCRIlJUJ9XEqrIpVnOVCnITIlHWa4noHdeSPcWDm1UH4EJ0 XqjeSaThNSGe2Wf890ZTQvJYXsVa2HP9qiVn3mGDKdLCNYGz7TBHf6GiVzDKLeWLS2UOSdZWplPBGgPK D1CWLePwH9FXChLTY+ECbyQSD4QeKrHXpuXZFpSZZo J0R7IDlyV1U2PLBaTmG6Ha8mZTYEVp9+SOkgwTYnuQimCHKVDbq6CKr1WRkuNXSBEo6F Procedure Social History Code Duration Value Status Description Data Source(s ) Smoking 01/31/2020 12:00:00 AM EST Never Smoker completed Never S moker eCW1 ([facility]) Smoking 01/30/2020 12:00:00 AM EST Patient has never smoked co mpleted Patient has never smoked MEDENT ([facility]) Smoking 10/24/2019 07:59:33 AM EDT Never smoked tobacco (sherwin grimaldo) completed Never smoked tobacco (finding) JALEN (Andrew Finley MD [facility]) Smoking 09/21/2019 08:41:23 AM EDT Never smoked tobacco (sherwin grimaldo) completed Never smoked tobacco (finding) JALEN (Andrew Finley MD [facility]) Smoking 08/16/2019 12:00:00 AM EDT Never Smoker completed Never S moker eCW1 ([facility]) Smoking 08/16/2019 12:00:00 AM EDT Never Smoker completed Never S moker eCW1 ([facility]) Smoking 08/02/2019 12:00:00 AM EDT Never Smoker completed Never S moker eCW1 ([facility]) Smoking 08/02/2019 12:00:00 AM EDT Never Smoker completed Never S moker eCW1 ([facility]) Smoking 08/02/2019 12:00:00 AM EDT Never Smoker completed Never S moker eCW1 ([facility]) Vital Signs ID Date Data Source UNK Name Value Range Interpretation Code Description Data Source(s) Body surface area Derived from formula 1.44 m2 1.44 m2 [facility] ([facility]) Body weight 50.350 kg 50.350 kg [facility] ([facility]) [place] body weight 100 [lb_av] 100 [lb_av[facility] Body mass index (BMI) [Ratio] 22.4 kg/m2 22.4 k g/m2 [facility] ([facility]) Body weight 111.00 [lb_av] 111.00 [lb_av] [place] ([facility]) Body height 59 [in_i] 59 [in_i] [facility] ([facility]) 4'11" Diastolic blood pressure 65 mm[Hg] 65 mm[Hg] [facility] ([facility]) Systolic blood pressure 114 mm[Hg] 114 mm[Hg] M [facility]ENT ([facility]) Diastolic blood pressure 54 mm[Hg] 54 mm[Hg] eCW1 ([facility]) Systolic blood pressure 94 mm[Hg] 94 mm[Hg] e CW1 ([facility]) Body temperature 96.5 [degF] 96.5 [degF] eCW1 ( [facility]) Respiratory rate 20 /min 20 /min eCW1 ([facility]) Heart rate 94 /min 94 /min eCW1 ([facility]) Body mass index (BMI) [Ratio] 20.89 kg/m2 20.89 kg/m2 eCW1 ([facility]) Body height 60 [in_i] 60 [in_i] eCW1 ([facility]) Body weight 107 [lb_av] 107 [lb_av] eCW1 ([facility]) Body surface area Derived from formula 1.42 m2 1.42 m2 [facility] ([facility]) Body weight 48.705 kg 48.705 kg [facility] ([facility]) [place] body weight 100 [lb_av] 100 [lb_av] MED[facility] T ([facility]) Body mass index (BMI) [Ratio] 21.7 kg/m2 21.7 k g/m2 [facility] ([facility]) Body weight 107.38 [lb_av] 107.38 [lb_av] [facility] T ([facility]) Body height 59 [in_i] 59 [in_i] [facility] ([facility]) 4'11" Body temperature 97.8 [degF] 97.8 [degF] [facility] ([facility]) Oxygen saturation in Arterial blood by Pulse oximetry 95 % 95 % [facility] ([facility]) Heart rate 92 /min 92 /min [facility] ([facility]) Diastolic blood pressure 60 mm[Hg] 60 mm[Hg] [facility] ([facility]) Systolic blood pressure 112 mm[Hg] 112 mm[Hg] [facility] Body surface area Derived from formula 1.40 m2 1.40 m2 [facility] ([facility]) Body weight 47.401 kg 47.401 kg [facility] ([facility]) [place] body weight 100 [lb_av] 100 [lb_av] MED[facility] T ([facility]) Body mass index (BMI) [Ratio] 21.1 kg/m2 21.1 k g/m2 [facility] ([facility]) Body weight 104.50 [lb_av] 104.50 [lb_av] MED[facility] T ([facility]) Body height 59 [in_i] 59 [in_i] [facility] 4'" Diastolic blood pressure 66 mm[Hg] 66 mm[Hg] [facility] ([facility]) Systolic blood pressure 130 mm[Hg] 130 mm[Hg] [facility] Body surface area Derived from formula 1.40 m2 1.40 m2 [facility] ([facility]) Body weight 47.174 kg 47.174 kg [facility] ([facility]) [place] body weight 100 [lb_av] 100 [lb_av] [facility] T ([facility]) Body mass index (BMI) [Ratio] 21.0 kg/m2 21.0 k g/m2 [facility] ([facility]) Body weight 104.00 [lb_av] 104.00 [lb_av] [facility] T ([facility]) Body height 59 [in_i] 59 [in_i] [facility] ([facility]) 4" Diastolic blood pressure 61 mm[Hg] 61 mm[Hg] [facility] ([facility]) Systolic blood pressure 115 mm[Hg] 115 mm[Hg] [facility] Diastolic blood pressure 56 mm[Hg] 56 mm[Hg] eCW1 ([facility]) Systolic blood pressure 96 mm[Hg] 96 mm[Hg] e CW1 ([facility]) Body temperature 97.4 [degF] 97.4 [degF] eCW1 ( [facility]) Respiratory rate 20 /min 20 /min eCW1 ([facility]) Heart rate 105 /min 105 /min eCW1 ([facility]) Body mass index (BMI) [Ratio] 20.50 kg/m2 20.50 kg/m2 eCW1 ([facility]) Body height 60 [in_i] 60 [in_i] eCW1 ([facility]) Body weight 105 [lb_av] 105 [lb_av] eCW1 ([facility]) Diastolic blood pressure 40 mm[Hg] 40 mm[Hg] eCW1 ([facility]) Systolic blood pressure 82 mm[Hg] 82 mm[Hg] e CW1 ([facility]) Body temperature 97 [degF] 97 [degF] eCW1 ([facility]) Respiratory rate 20 /min 20 /min eCW1 ([facility]) Heart rate 102 /min 102 /min eCW1 ([facility]) Body mass index (BMI) [Ratio] 20.89 kg/m2 20.89 kg/m2 eCW1 ([facility]) Body height 60 [in_i] 60 [in_i] eCW1 ([facility]) Body weight 107 [lb_av] 107 [lb_av] eCW1 ([facility]) Diastolic blood pressure 50 mm[Hg] 50 mm[Hg] eCW1 ([facility]) Systolic blood pressure 92 mm[Hg] 92 mm[Hg] e CW1 ([facility]) Body temperature 96.7 [degF] 96.7 [degF] eCW1 ( [facility]) Respiratory rate 20 /min 20 /min eCW1 ([facility]) Heart rate 112 /min 112 /min eCW1 ([facility]) Body mass index (BMI) [Ratio] 24.41 kg/m2 24.41 kg/m2 eCW1 ([facility]) Body height 60 [in_us] 60 [in_us] eCW1 ([facility]) Body weight Measured 125 [lb_av] 125 [lb_av] eC W1 ([facility]) Diastolic blood pressure 48 mm[Hg] 48 mm[Hg] eCW1 ([facility]) Systolic blood pressure 82 mm[Hg] 82 mm[Hg] e CW1 ([facility]) Body temperature 96.5 [degF] 96.5 [degF] eCW1 ( [facility]) Respiratory rate 20 /min 20 /min eCW1 ([facility]) Heart rate 97 /min 97 /min eCW1 ([facility]) Body mass index (BMI) [Ratio] 20.50 kg/m2 20.50 kg/m2 eCW1 ([facility]) Body height 60 [in_us] 60 [in_us] eCW1 ([facility]) Body weight Measured 105 [lb_av] 105 [lb_av] eC W1 ([facility]) Body mass index (BMI) [Ratio] 21.2 kg/m2 21.2 k g/m2 MEDENT ([facility] Body weight 105.00 [lb_av] 105.00 [lb_av] MEDEN T ([facility] Body height 59 [in_i] 59 [in_i] MEDENT ([facility] 4'11" Oxygen saturation in Arterial blood by Pulse oximetry 93 % 93 % MED[facility] ([facility] Heart rate 97 /min 97 /min [facility] ([facility] Diastolic blood pressure 60 mm[Hg] 60 mm[Hg] [facility] ([facility] Systolic blood pressure 110 mm[Hg] 110 mm[Hg] M EDENT ([facility] Diastolic blood pressure 58 mm[Hg] 58 mm[Hg] eCW1 ([facility]) Systolic blood pressure 96 mm[Hg] 96 mm[Hg] e CW1 ([facility]) Body temperature 96.7 [degF] 96.7 [degF] eCW1 ( [facility]) Respiratory rate 18 /min 18 /min eCW1 ([facility]) Heart rate 99 /min 99 /min eCW1 ([facility]) Body mass index (BMI) [Ratio] 21.09 kg/m2 21.09 kg/m2 eCW1 ([facility]) Body height 60 [in_us] 60 [in_us] eCW1 ([facility]) Body weight Measured 108 [lb_av] 108 [lb_av] eC W1 ([facility]) Diastolic blood pressure 60 mm[Hg] 60 mm[Hg] eCW1 ([facility]) Systolic blood pressure 130 mm[Hg] 130 mm[Hg] e CW1 ([facility]) Body temperature 98.1 [degF] 98.1 [degF] eCW1 ( [facility]) Respiratory rate 18 /min 18 /min eCW1 ([facility]) Heart rate 110 /min 110 /min eCW1 ([facility]) Body mass index (BMI) [Ratio] 22.77 kg/m2 22.77 kg/m2 eCW1 ([facility]) Body height 60 [in_us] 60 [in_us] eCW1 ([facility]) Body weight Measured 116.6 [lb_av] 116.6 [lb_av ] eCW1 ([facility]) Patient Treatment Plan of Care Planned Activity Planned Date Details Description Data Source (s) Albuterol 0.83 MG/ML Inhalant Solution 06/27/2019 12:00:00 AM EDT eCW1 ([facility]) fidaxomicin 200 MG Oral Tablet [Dificid] 06/27/2019 12:00:00 AM EDT eCW1 ([facility]) fidaxomicin 200 MG Oral Tablet [Dificid] 06/27/2019 12:00:00 AM EDT eCW1 ([facility]) fidaxomicin 200 MG Oral Tablet [Dificid] 06/27/2019 12:00:00 AM EDT eCW1 ([facility]) fidaxomicin 200 MG Oral Tablet [Dificid] 06/27/2019 12:00:00 AM EDT eCW1 ([facility]) Sucralfate 1000 MG Oral Tablet 06/27/2019 12:00:00 AM EDT eCW1 ([facility]) [place] Hydrochloride 10 MG/ML Ophthalmic Solution 03/08/2019 12:00:00 AM EST eCW1 ([facility]) [place] Hydrochloride 10 MG/ML Ophthalmic Solution 03/08/2019 12:00:00 AM EST eCW1 ([facility]) Sucralfate 100 MG/ML Oral Suspension 03/08/2019 12:00:00 AM EST eCW1 ([facility])
[2020-04-15] MEDS ORDERED: FURO20TA2 PO (17:13)
[2020-04-15] MEDS ORDERED: PANT40TA29 PO (17:13)
[2020-04-15 18:01] LABS: BASO % 0.2 % (0.0-1.0); EOS % 0.3 % (0.0-3.0); HEMATOCRIT 32.6 % (36.0-47.0); HEMOGLOBIN 10.1 g/dl (12.0-15.5); LYMPH # 1.2 10^3/uL (1.5-5.0); LYMPH % 9.9 % (24.0-44.0); MEAN CORPUSCULAR HEMOGLOBIN 28.9 pg (27.0-33.0); MEAN CORPUSCULAR VOLUME 93.1 fl (80.0-96.0); MONO # 1.1 10^3/uL (0.0-0.8); MONO % 9.6 % (2.0-8.0); NEUTROPHILS # 9.4 10^3/uL (1.5-8.5); NEUTROPHILS % 79.4 % (36.0-66.0); PLATELET COUNT, AUTOMATED 139 10^3/uL (150-450); WHITE BLOOD COUNT 11.9 10^3/uL (4.0-10.0)
--- OUTSIDE RECORDS SUMMARY | 2020-04-15 18:01 | CCD ---
Author Author [facility] Organization [facility] Address Unknown Phone Unavailable Care Team Providers Care Beater Boss Name Role Phone Ken Finley, Taty Lua [...] Lua MD, FACS Unavailable Unavailable Rogers Finley, Tayt Lua MD, FACS Unavailable Unavailable Rogers Finley, [...] Unavailable Unavailable CASEY, A. RONNA DO Unavailable [phone] Taty GUERRERO. RONNA DO Unavailable [phone] Taty GUERRERO. RONNA DO Unavailable [phone] CASEYMiller RONNA DO Unavailable [phone] CASEY, A. RONNA DO Unavailable [phone] CASEY, A. RONNA DO Unavailable [phone] CASEY A. RONNA DO Unavailable [phone] Miller GUERREROEW DO Unavailable [phone] Mliler GUERRERO RONNA DO Unavailable [phone] Miller GUERRERO RONNA DO Unavailable [phone] Miller GUERRERO RONNA DO Unavailable [phone] Miller GUERRERO RNONA DO Unavailable [phone] Miller GUERRERO RONNA [...] Unavailable REINDL, ANDREW GARCIA Unavailable Unavailable REINDL, ANDERW GARCIA Unavailable Unavailable REINDL, ANDREW GARCIA Unavailable [...] is protected by Article 27-F of the [facility] Public Health law. If you continue you may have access to information: Regarding HIV / AIDS; Provided by facilities licensed or operated by the [facility] Office of Mental Health; or Provided by the [facility] Office for People With Developmental Disabilities. If such information is present, then the following [facility] mandated warning applies: This information has been [...] law may result in a fine or shelter sentence or both. A general authorization for the release of medical or other information is NOT sufficient authorization for further disc losure. Allergies and Adverse Reactions Type Description Substance Reaction Status Data Source(s ) Drug allergy Cephalexin Cephalexin Unknown Active eCW1 ([facility]) Drug allergy Bimatoprost bimatoprost Unknown Active eCW1 ([facility]) Drug allergy Clarithromycin Clarithromycin Unknown [facility] Drug allergy Istalol Timolol cough and trouble breathing Activ e [facility]) Drug allergy Bactrim sulfamethoxazole / trimethoprim stomach ache, appetite loss [facility] Drug allergy Cosopt dorzolamide / timolol congestion and cough A ctive [facility]) Drug allergy Moxifloxacin HCl moxifloxacin Unknown Active [facility]) Drug allergy Dorzolamide HCl dorzolamide Unknown [facility] Drug allergy Benzalkonium Chloride Drug allergy Unknown Active [facility]CW1 [facility]) Drug allergy Brimonidine Tartrate brimonidine weak,altered mental status Active eCW1 [facility] Drug allergy Xalatan latanoprost pain in eye, heart racing Active eCW1 ([facility]) Drug allergy Avelox moxifloxacin Rash Active eCW1 ([facility]) Diclofenac Voltaren Diclofenac fever, heart racing Active [facility]CW[facility]) Timolol Timolol Timolol 5 MG Oral Tablet bronchospasm Active [facility]) SMZ-TMP DS SMZ-TMP DS SMZ-TMP DS difficulty breathing, dizziness Act iram eCW1 ([facility]) Travatan Travatan Travatan pain in eye, heart racing Active eCW1 ([facility]) Levaquin Levaquin Levofloxacin 750 MG Oral Tablet [Levaquin] rash Active [facility]CW1 [facility]) Timolol Timolol Timolol 5 MG Oral Tablet bronchospasm Active eCW1 [facility]) SMZ-TMP DS SMZ-TMP DS SMZ-TMP DS difficulty breathing, dizziness Act iram eCW1 ([facility]) Travatan Travatan Travatan pain in eye, heart racing Active eCW1 [facility]) Levaquin Levaquin Levofloxacin 750 MG Oral Tablet [Levaquin] rash Active eCW1 [facility]) Timolol Timolol Timolol 5 MG Oral Tablet bronchospasm Active eCW1 [facility]) SMZ-TMP DS SMZ-TMP DS SMZ-TMP DS difficulty breathing, dizziness Act iram eCW1 ([facility]) Travatan Travatan Travatan pain in eye, heart racing Active eCW1 [facility]) Levaquin Levaquin Levofloxacin 750 MG Oral Tablet [Levaquin] rash Active eCW1 [facility]) Timolol Timolol Timolol 5 MG Oral Tablet bronchospasm Active eCW1 [facility]) SMZ-TMP DS SMZ-TMP DS SMZ-TMP DS difficulty breathing, dizziness Act iram eCW1 ([facility]) Travatan Travatan Travatan pain in eye, heart racing Active eCW1 ([facility]) Levaquin Levaquin Levofloxacin 750 MG Oral Tablet [Levaquin] rash Active eCW1 [facility]) Family History Family Member Name Family Member Gender Family Member Status Date o f Status Description Data Source(s) Unknown Unknown Problem MEDENT ([facility]) Unknown Male Problem MEDENT ([facility] ) Unknown Unknown Problem MEDENT ([facility]) Encounters Encounter Providers Location Date Indications Data Source(s ) Office Visit Attender: ANDREW Sheets/Jam/Nelson/Robert leung 04/10/2020 10:30:00 AM EST [facility] ([facility] [place] [facility] [address] 01/31/2020 12:00:00 AM EST [facility]CW1 [facility] Office Visit Attender: Andrew Oates/Jam/Nelson/Dc cabello 01/30/2020 08:30:00 AM EST MEDENT ([facility], ) Outpatient<td ID="encounterTypeDescripti onID0">IOP CHECK WITH VISUAL FIELD 24- 2</td><td>Ronna Guerrero DO</td><td>Andrew Dubois MD [facility]</td><td>10/24/2019</td><td>6:49AM</td><td>7:56AM</td><td><content ID="encounterDiagnosisID0-0">Glaucoma Open-angle Primary</content></td> Attender: RONNA Blake MD [facility] 10/24/2019 06:49:00 AM EDT - 10/24/2019 07:56:00 AM EDT Glaucoma Open-angle Primary JALEN (Andrew Finley MD [facility]) Glaucoma Open-angle Primary Outpatient Attender: ANDREW Sheets/Jam/Nelson/Robert leung 10/08/2019 10:45:00 AM EDT [facility] ([facility], ) [place] [address] [facility] [address] 09/12/2019 12:00:00 AM EDT eCW1 [facility] Outpatient<td ID="encounterTypeDescripti onID2">GLAUCOMA EVALUATION</td><td>Ronna Guerrero DO</td><td>Andrew Dubois MD [facility]</td><td>09/03/2019</td><td>9:46AM</td><td>10:40AM</td><td><content ID="encounterDiagnosisID2-0">Borderline Glaucoma Ocular Hypertension Right Eye</content>, <content ID="encounterDiagnosisID2-1">Glaucoma Open-angle Primary Left Eye</content></td> Attender: RONNA Blake MD [facility] 09/03/2019 09:46:00 AM EDT - 09/03/2019 10:40:00 AM ED T Glaucoma Open-angle Primary Left EyeBorderline Glaucoma Ocular Hypertension Right EyeGlaucoma Open- angle Primary Left EyeBorderline Glaucoma Ocular Hypertension Right Eye JALEN (Andrew Finley MD [facility]) Glaucoma Open-angle Primary Left 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 Left 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 Outpatient<td ID="encounterTypeDescripti onID1">Argon ALT - Global 90 DAY POST OP</td><td>Ronna Guerrero DO</td><td>Andrew Dubois MD [facility]</td><td>09/21/2019</td><td>09/03/2019 8:00AM</td><td> 8:29AM</td><td><content ID="encounterDiagnosisID1-0">Borderline Glaucoma Ocular Hypertension Right Eye</content>, <content ID="encounterDiagnosisID1-1">Glaucoma Open-angle Primary Left Eye</content></td> Attender: RONNA Blake MD [facility] 09/03/2019 08:00:00 AM EDT - 09/21/2019 08:29:00 AM ED T Glaucoma Open-angle Primary Left EyeBorderline Glaucoma Ocular Hypertension Right EyeGlaucoma Open-angle Primary Left EyeBorderline Glaucoma Ocular Hypertension Right Eye JALEN (Andrew Finley MD [facility]) Glaucoma Open-angle Primary Left 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 Left 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 Outpatient Attender: ANDREW Sheets/Jma/Nelson/Robert leung 08/29/2019 10:30:00 AM EDT MEDENT ([facility] [place] [address] [facility] [address] 08/16/2019 12:00:00 AM EDT [facility]CW[facility] [place] [address] [facility] [address] 08/06/2019 12:00:00 AM EDT eCW1 ([facility] Outpatient Referrer: Andrew Leo DO 08/02/2019 04:57:00 AM EDT [facility] Outpatient [address] [facility] [place] [address] 08/02/2019 12:00:00 AM EDT eCW1 ([facility] Unknown [address] [facility] [place] [address] 08/02/2019 12:00:00 AM EDT eCW1 [facility] Outpatient<td ID="encounterTypeDescripti onID3">5 Month Follow-Up</td><td>Andrew Dubois MD, FACS</td><td>Andrew Dubois MD [facility]</td><td>08/01/2019</td><td>9:39AM</td><td>10:09AM</td><td><content ID="encounterDiagnosisID3-0">Borderline Glaucoma Ocular Hypertension Left Eye</content>, <content ID="encounterDiagnosisID3-1">Corneal Dystrophy Endothelial Fuchs'</content>, <content ID="encounterDiagnosisID3-2">Dry Eye Syndrome Both Eyes</content>, <content ID="encounterDiagnosisID3-3">Retinopathy Hypertensive Both Eyes</content>, <content ID="encounterDiagnosisID3-4">Corneal Dystrophy Anterior Both Eyes</content></td> Attender: Andrew Finley MD, FACS Andrew Dubois MD [facility] 08/01/2019 09:39:00 AM EDT - 08/01/2019 10:09:00 AM EDT Corneal Dystrophy Anterior Both EyesBord doug Glaucoma Ocular Hypertension Left EyeCorneal Dystrophy Anterior Both EyesBorderline Glaucoma Ocular Hypertension Left EyeRetinopathy Hypertensive Both EyesDry Eye Syndrome Both EyesCorneal Dystrophy Endothelial Fuchs'Retinopathy Hypertensive Both EyesDry Eye Syndrome Both EyesCorneal Dystrophy Endothelial Fuchs' JALEN (Andrew Finley MD [facility]) 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 Both Eyes Dry 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' Retinopathy Hypertensive Both Eyes Dry 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' [address] [address] 07/27/2019 12:00:00 AM EDT [facility]CW[facility] [address] [address] 07/26/2019 12:00:00 AM EDT eCW1 ([facility] [address] [address] 07/20/2019 12:00:00 AM EDT eCW1 ([facility]) [address] [address] 07/04/2019 12:00:00 AM EDT eCW1 ([facility]) [facility] [address] [facility] [address] 07/04/2019 12:00:00 AM EDT eCW1 ([facility]) Outpatient Referrer: Andrew Leo DO 07/03/2019 04:41:00 AM EDT [facility] [address] [facility] [address] 07/03/2019 12:00:00 AM EDT eCW1 ([facility]) Outpatient Referrer: Andrew Leo DO 06/30/2019 07:51:00 AM EDT [facility] [address] [place] [address], [place] [address] 06/29/2019 12:00:00 AM EDT eCW1 ([facility]) [facility] [address] [place] [address], [place] [address] 06/28/2019 12:00:00 AM EDT eCW1 ([facility]) [facility] [address] [place] [address], [place] [address] 06/20/2019 12:00:00 AM EDT eCW1 ([facility]) [facility] [address] [place] [address], [place] [address] 05/01/2019 12:00:00 AM EST eCW1 ([facility]) [facility] [address] [place] [address], [place] [address] 04/24/2019 12:00:00 AM EST eCW1 ([facility]) Outpatient Attender: Andrew Leo DO Main Office 04/23/2019 09:00:00 AM EST MED[facility] ([facility] Outpatient Referrer: Andrew Leo DO 04/17/2019 03:29:00 PM EST [facility] Outpatient Referrer: Andrew Leo DO 04/17/2019 03:29:00 PM EST [facility] [address] [place] [address], [place] [address] 04/13/2019 12:00:00 AM EST eCW1 ([facility]) [address] [address] 04/11/2019 12:00:00 AM EST eCW1 ([facility]) [address] [address] 04/11/2019 12:00:00 AM EST eCW1 ([facility]) [address] [address] 04/10/2019 12:00:00 AM EST eCW1 ([facility]) [address] [address] 04/03/2019 12:00:00 AM EST eCW1 ([facility]) [address] [address] 04/02/2019 12:00:00 AM EST [facility] [address] [address] 03/28/2019 12:00:00 AM EST eCW1 ([facility] Outpatient<td ID="encounterTypeDescripti onID6">VISUAL FIELD 24- 2</td><td></td><td>Andrew Dubois MD [facility]</td><td>03/26/2019</td><td>9:08AM</td><td>10:20AM</td><td></td> Andrew Dubois MD [facility] 03/26/2019 09:08:00 AM EST - 03/26/2019 10:20:00 AM EST JALEN (Andrew Finley MD [facility]) Outpatient<td ID="encounterTypeDescripti onID5">TESTING - VISUAL FIELD & OCT</td><td>Ronna Guerrero DO</td><td>Andrew Dubois MD [facility]</td><td>03/26/2019</td><td>9:08AM</td><td>10:21AM</td><td><content ID="encounterDiagnosisID5-0">Borderline Glaucoma Ocular Hypertension Left Eye</content></td> Attender: RONNA Blake MD [facility] 03/26/2019 09:08:00 AM EST - 03/26/2019 10:21:00 AM EST Borderline Glaucoma Ocular Hypertension Left EyeBorderline Glaucoma Ocular Hypertension Left Eye JALEN (Andrew Finley MD [facility]) 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 Outpatient<td ID="encounterTypeDescripti onID4">OCT DISC</td><td></td><td>Andrew Dubois MD [facility]</td><td>03/26/2019</td><td>9:08AM</td><td>10:21AM</td><td></td> Andrew Dubois MD [facility] 03/26/2019 09:08:00 AM EST - 03/26/2019 10:21:00 AM EST JALEN (Andrew Finley MD [facility]) [facility] [address] [facility] [address] 03/23/2019 12:00:00 AM EST eCW1 [facility] [address] [place] [address], [place] [address] 03/22/2019 12:00:00 AM EST eCW1 ([facility]) [facility] [address] [place] [address], [place] [address] 03/20/2019 12:00:00 AM EST eCW1 ([facility]) Outpatient Referrer: Andrew Leo DO 03/18/2019 09:07:00 PM EST [facility] [address] [place] [address], [place] [address] 03/16/2019 12:00:00 AM EST eCW1 [facility] [address] [facility] [address] 03/15/2019 12:00:00 AM EST eCW1 ([facility]) [facility] [address] [place] [address], [place] [address] 03/15/2019 12:00:00 AM EST [facility]CW[facility] Outpatient<td ID="encounterTypeDescripti onID7">IOP CHECK</td><td>Ronna Guerrero DO</td><td>Andrew Dubois MD [facility]</td><td>03/14/2019</td><td>8:32AM</td><td>9:50AM</td><td><content ID="encounterDiagnosisID7-0">Borderline Glaucoma Ocular Hypertension Left Eye</content></td> Attender: RONNA Blake MD [facility] 03/14/2019 08:32:00 AM EST - 03/14/2019 09:50:00 AM EST Borderline Glaucoma Ocular Hypertension Left EyeBorderline Glaucoma Ocular Hypertension Left Eye JALEN (Andrew Finley MD [facility]) 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 [address] [place] [address] 03/14/2019 12:00:00 AM EST [facility] [address] [place] [address] 03/12/2019 12:00:00 AM EST [facility]CW1 [facility] [address] [place] [address] 03/09/2019 12:00:00 AM EST eCW1 ([facility] Outpatient PORTER 02/24/2019 12:12:44 AM EST [facility] Outpatient CHELSEA 02/23/2019 12:00:00 AM EST [facility] Medications Medication Brand Name Start Date Product Form Dose Route Admi nistrative Instructions Pharmacy Instructions Status Indications Reaction Description Data Source(s) pantoprazole 40 MG Delayed Release Oral Tablet Pantoprazole Sodium 10/08/2019 12:00:00 AM EDT ORAL active M HERNANDEZ ([facility], ) Sucralfate 1000 MG Oral Tablet Sucralfate 1 GM Sucralfate 1 GM 06/27/2019 12:00:00 AM EDT 1.0 {tablet_on_an_empty_stomach} active Sucralfate 1 GM [facility] Albuterol 0.83 MG/ML Inhalant Solution Albuterol Sulfa te (2.5 MG/3ML) 0.083% Albuterol Sulfate (2.5 MG/3ML) 0.083% 06/27/2019 12:00:00 AM EDT 3.0 {ml} active Albuterol Sulfate (2.5 MG/3M L) 0.083% eCW1 [facility]) fidaxomicin 200 MG Oral Tablet [Dificid] Dificid 200 MG Difi esmer 200 MG 06/27/2019 12:00:00 AM EDT 1.0 {tablet} active Dificid 200 MG eCW1 ([facility]) Sucralfate 1000 MG Oral Tablet Sucralfate 1 GM Sucralfate 1 GM 06/27/2019 12:00:00 AM EDT 1.0 {tablet_on_an_empty_stomach} active Sucralfate 1 GM eCW1 ([facility]) Albuterol 0.83 MG/ML Inhalant Solution Albuterol Sulfa te (2.5 MG/3ML) 0.083% Albuterol Sulfate (2.5 MG/3ML) 0.083% 06/27/2019 12:00:00 AM EDT 3.0 {ml} active Albuterol Sulfate (2.5 MG/3M L) 0.083% eCW1 [facility]) fidaxomicin 200 MG Oral Tablet [Dificid] Dificid 200 MG Difi esmer 200 MG 06/27/2019 12:00:00 AM EDT active 1 tablet eCW1 [facility]) Albuterol 0.83 MG/ML Inhalant Solution Albuterol Sulfa te (2.5 MG/3ML) 0.083% Albuterol Sulfate (2.5 MG/3ML) 0.083% 06/27/2019 12:00:00 AM EDT 3.0 {ml} active Albuterol Sulfate (2.5 MG/3M L) 0.083% eCW1 ([facility]) Albuterol 0.83 MG/ML Inhalant Solution Albuterol Sulfa te (2.5 MG/3ML) 0.083% Albuterol Sulfate (2.5 MG/3ML) 0.083% 06/27/2019 12:00:00 AM EDT 3.0 {ml} active Albuterol Sulfate (2.5 MG/3M L) 0.083% eCW1 [facility]) Sucralfate 1000 MG Oral Tablet Sucralfate 1 GM Sucralfate 1 GM 06/27/2019 12:00:00 AM EDT 1.0 {tablet_on_an_empty_stomach} active Sucralfate 1 GM eCW1 ([facility]) fidaxomicin 200 MG Oral Tablet [Dificid] Dificid 200 MG Difi esmer 200 MG 06/27/2019 12:00:00 AM EDT 1.0 {tablet} suspended Dificid 200 MG eCW1 ([facility]) Albuterol 0.83 MG/ML Inhalant Solution Albuterol Sulfa te (2.5 MG/3ML) 0.083% Albuterol Sulfate (2.5 MG/3ML) 0.083% 06/27/2019 12:00:00 AM EDT active 3 ml eCW1 ([facility]) fidaxomicin 200 MG Oral Tablet [Dificid] Dificid 200 MG Difi esmer 200 MG 06/27/2019 12:00:00 AM EDT 1.0 {tablet} suspended Dificid 200 MG eCW1 ([facility]) Albuterol 0.83 MG/ML Inhalant Solution Albuterol Sulfa te (2.5 MG/3ML) 0.083% Albuterol Sulfate (2.5 MG/3ML) 0.083% 06/27/2019 12:00:00 AM EDT 3.0 {ml} active Albuterol Sulfate (2.5 MG/3M L) 0.083% eCW1 [facility]) Sucralfate 1000 MG Oral Tablet Sucralfate 1 GM Sucralfate 1 GM 06/27/2019 12:00:00 AM EDT 1.0 {tablet_on_an_empty_stomach} active Sucralfate 1 GM eCW1 ([facility]) Sucralfate 1000 MG Oral Tablet Sucralfate 1 GM Sucralfate 1 GM 06/27/2019 12:00:00 AM EDT active 1 tablet on an empty stomach eCW1 ([facility]) fidaxomicin 200 MG Oral Tablet [Dificid] Dificid 200 MG Difi esmer 200 MG 06/27/2019 12:00:00 AM EDT 1.0 {tablet} active Dificid 200 MG eCW1 ([facility]) fidaxomicin 200 MG Oral Tablet [Dificid] Dificid 200 MG Difi esmer 200 MG 06/27/2019 12:00:00 AM EDT active 1 tablet eCW1 [facility]) Albuterol 0.83 MG/ML Inhalant Solution Albuterol Sulfa te (2.5 MG/3ML) 0.083% Albuterol Sulfate (2.5 MG/3ML) 0.083% 06/27/2019 12:00:00 AM EDT 3.0 {ml} active Albuterol Sulfate (2.5 MG/3M L) 0.083% eCW1 [facility]) Sucralfate 1000 MG Oral Tablet Sucralfate 1 GM Sucralfate 1 GM 06/27/2019 12:00:00 AM EDT 1.0 {tablet_on_an_empty_stomach} active Sucralfate 1 GM eCW1 ([facility]) Sucralfate 1000 MG Oral Tablet Sucralfate 1 GM Sucralfate 1 GM 06/27/2019 12:00:00 AM EDT active 1 tablet on an empty stomach eCW1 ([facility]) fidaxomicin 200 MG Oral Tablet [Dificid] Dificid 200 MG Difi esmer 200 MG 06/27/2019 12:00:00 AM EDT 1.0 {tablet} active Dificid 200 MG eCW1 [facility]) Albuterol 0.83 MG/ML Inhalant Solution Albuterol Sulfa te (2.5 MG/3ML) 0.083% Albuterol Sulfate (2.5 MG/3ML) 0.083% 06/27/2019 12:00:00 AM EDT active 3 ml [facility]CW1 [facility]) Pilocarpine Hydrochloride 10 MG/ML Ophthalmic Solution Pilocarpine HCl 1 % Pilocarpine HCl 1 % 03/08/2019 12:00:00 AM EST active Pilocarpine HCl 1 % eCW1 [facility]) Pilocarpine Hydrochloride 10 MG/ML Ophthalmic Solution Pilocarpine HCl 1 % Pilocarpine HCl 1 % 03/08/2019 12:00:00 AM EST active Pilocarpine HCl 1 % eCW1 [facility]) Pilocarpine Hydrochloride 10 MG/ML Ophthalmic Solution Pilocarpine HCl 1 % Pilocarpine HCl 1 % 03/08/2019 12:00:00 AM EST active 1 drop into the left eye eCW1 ([facility]) Sucralfate 100 MG/ML Oral Suspension Sucralfate 1 GM/10ML Wall cralfate 1 GM/10ML 03/08/2019 12:00:00 AM EST active 10 ml on an empty stomach eCW1 ([facility]) Sucralfate 100 MG/ML Oral Suspension Sucralfate 1 GM/10ML Wall cralfate 1 GM/10ML 03/08/2019 12:00:00 AM EST active 10 ml on an empty stomach eCW1 ([facility]) Pilocarpine Hydrochloride 10 MG/ML Ophthalmic Solution Pilocarpine HCl 1 % Pilocarpine HCl 1 % 03/08/2019 12:00:00 AM EST active Pilocarpine HCl 1 % eCW1 [facility]) Pilocarpine Hydrochloride 10 MG/ML Ophthalmic Solution Pilocarpine HCl 1 % Pilocarpine HCl 1 % 03/08/2019 12:00:00 AM EST active Pilocarpine HCl 1 % eCW1 [facility]) Sucralfate 100 MG/ML Oral Suspension Sucralfate 1 GM/10ML Wall cralfate 1 GM/10ML 03/08/2019 12:00:00 AM EST suspended 10 ml on an empty stomach eCW1 ([facility]) Pilocarpine Hydrochloride 10 MG/ML Ophthalmic Solution Pilocarpine HCl 1 % Pilocarpine HCl 1 % 03/08/2019 12:00:00 AM EST active 1 drop into the left eye eCW1 ([facility]) Pilocarpine Hydrochloride 10 MG/ML Ophthalmic Solution Pilocarpine HCl 1 % Pilocarpine HCl 1 % 03/08/2019 12:00:00 AM EST active Pilocarpine HCl 1 % eCW1 [facility]) Pilocarpine Hydrochloride 10 MG/ML Ophthalmic Solution Pilocarpine HCl 1 % Pilocarpine HCl 1 % 03/08/2019 12:00:00 AM EST active 1 drop into the left eye eCW1 ([facility]) Pilocarpine Hydrochloride 10 MG/ML Ophthalmic Solution Pilocarpine HCl 1 % Pilocarpine HCl 1 % 03/08/2019 12:00:00 AM EST active Pilocarpine HCl 1 % eCW1 [facility]) Pilocarpine Hydrochloride 10 MG/ML Ophthalmic Solution Pilocarpine HCl 1 % Pilocarpine HCl 1 % 03/08/2019 12:00:00 AM EST active 1 drop into the left eye eCW1 ([facility]) Pilocarpine Hydrochloride 10 MG/ML Ophthalmic Solution Pilocarpine HCl 1 % Pilocarpine HCl 1 % 03/08/2019 12:00:00 AM EST active 1 drop into the left eye eCW1 ([facility]) Pilocarpine Hydrochloride 10 MG/ML Ophthalmic Solution Pilocarpine HCl 1 % Pilocarpine HCl 1 % 03/08/2019 12:00:00 AM EST active 1 drop into the left eye eCW1 ([facility]) Insurance Providers Payer name Policy type / Coverage type Policy ID Covered alliance party ID Covered alliance party's relationship to [employer] Policy [employer] WELLCARE [id number] SP [id number] WELLCARE O [id number] S [id number] MEDICARE [id number] SP [id number] AETNA MEDICARE [id number] SP [id number] AETNA MEDICARE [id number] SP [id number] MEDICARE [id number] A AETNA MEDICARE O [id number] S [id number] AETNA MEDICARE [id number] SP [id number] 92R AETNA MEDICARE [id number] SP [id number] MEDICARE COMPLETE [id number] SP [id number] MEDICARE COMPLETE [id number] SP [id number] MEDICARE COMPLETE [id number] SP [id number] MEDICARE COMPLETE [id number] SP [id number] [facility] [id number] SP [id number] TODAYS OPTIONSDO NOT USE [id number] SP [id number] [place] 306/806 [id number] HU2 [id number] [place] 306/806 [id number] HU2 [id number] [place] 306/806 [id number] SP [id number] AETNA MEDICARE [id number] Janet [id number] 92R AETNA MEDICARE O [id number] S [id number] ANSI-Medicare Part B [id number] ANSI-Medicare Part B [id number] ANSI-Medicare Part B [id number] AETNA MEDICARE [id number] SP [id number] ANSI-Medicare Part B [id number] ANSI-Medicare Part B [id number] ANSI-Medicare Part B [id number] MEDICARE [id number] SP [id number] ANSI-Medicare Part B [id number] ANSI-Medicare Part B [id number] ANSI-Medicare Part B [id number] BS Of [place] Medigap Part B [id number] Family Dep endent [id number] [employer] Options Commercial [id number] Self [id number] [facility] Vartopia [id number] Self [id number] Aetna Medicare Commercial [id number] Self MEBN [id number] AETNA MEDICARE [id number] SP [id number] AETNA MEDICARE O [id number] S [id number] Aetna Medicare Commercial [id number] Self [id number] [place] [facility] [id number] Family Dep endent [id number] [employer] Commercial [id number] Self [id number] ANSI-Medicare Part B [id number] ANSI-Medicare Part B [id number] ANSI-Medicare Part B [id number] Aetna ([facility]) Medigap Part B [id number] Self MEB [id number] [employer] Workers Compensation [id number] Self [id number] Medicare Dme Supplies Medigap Part B [id number] Self [id number] [place] Primary [id number] Self [id number] Aetna (MCR) Medigap Part B [id number] Self MEB [id number] [employer] Workers Compensation [id number] Self [id number] Medicare Dme Supplies Medigap Part B [id number] Self [id number] Medicare [place] Medicare Primary [id number] Self [id number] Aetna (MCR) Medigap Part B [id number] Self MEB [id number] [employer] Workers Compensation [id number] Self [id number] Medicare Dme Supplies Medigap Part B [id number] Self [id number] Medicare [place] Primary [id number] Self [id number] ANSI-Medicare Part B [id number] ANSI-Medicare Part B [id number] ANSI-Medicare Part B [id number] AETNA MEDICARE [id number] SP [id number] 92R [employer] Workers Compensation [id number] Self [id number] Aetna (pr) Medigap Part B [id number] Self [id number] Medicare Dme Supplies Medigap Part B [id number] Self [id number] Medicare [place] Medicare Primary [id number] Self [id number] MEDICARE [id number] SP [id number] A BS Of [place] Medigap Part B [id number] Family Dep endent [id number] Todays Options Commercial [id number] Self [id number] [facility] Commercial [id number] Self [id number] [facility] O [id number] S [id number] MEDICARE COMPLETE-UHC P [id number] S [id number] [facility] [id number] SP [id number] Problems, Conditions, and Diagnoses Code Display Name Description Problem Type Effective Dates Data Source(s) 068963467 Hypoxemia Hypoxemia Problem 01/30/2020 12:00:00 AM JORGE BURK ([facility], ) H40.1133 Glaucoma Open-angle Primary Glaucoma Open-angle Primar y Problem 10/24/2019 12:00:00 AM EDT JALEN (Andrew Finley [facility]) 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 Problem 09/03/2019 12:00:00 AM EDT DEBBI BARILLAS (Andrew Finley MD [facility]) H40.1121 Glaucoma Open-angle Primary Left Eye Gla ucoma Open-angle Primary Left Eye Problem 09/03/2019 12:00:00 AM EDT JALEN (Haroldo Finley MD [facility]) [id number] 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 Problem 09/03/2019 12:00:00 AM EDT DEBBI BARILLAS (Andrew Finley MD [facility]) H40.1121 Glaucoma Open-angle Primary Left Eye Gla ucoma Open-angle Primary Left Eye Problem 09/03/2019 12:00:00 AM EDT JALEN (Haroldo Finley MD [facility]) I50.32 [id number] Chronic diastolic congestive heart failur e Problem 08/02/2019 12:00:00 AM EDT [facility] K74.60 31047203 Unspecified cirrhosis of liver Problem 08/02/2019 12:00:00 AM EDT [facility]CW[facility]) R18.8 [id number] Other ascites Problem 08/02/2019 12:00:00 AM EDT eCW1 [facility]) 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 Cor daniel Dystrophy Anterior Both Eyes Problem 08/01/2019 12:00:00 AM EDT JALEN (Haroldo Finley MD [facility]) 46663202 Corneal Dystrophy Anterior Both Eyes Cor daniel Dystrophy Anterior Both Eyes Problem 08/01/2019 12:00:00 AM EDT JALEN (Haroldo Finley MD [facility]) D50.0 966754674 Anemia due to GI blood loss Problem 07/04/19 12:00:00 AM EDT eCW[facility]) D50.0 727425370 Anemia due to GI blood loss Problem 07/04/19 12:00:00 AM EDT eCW1 ([facility]) 912857844 Hypoxemia Hypoxemia Problem 04/23/2019 12:00:00 AM ES T MEDENT ([facility] 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 04/10/2019 12: 00:00 AM EST eCW1 [facility]) 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 07741103 Polyclonal gammopathy Problem 04/10/2019 12: 00:00 AM EST eCW1 ([facility]) V43.1 Pseudophakia Pseudophakia Problem 03/14/2019 12:00:00 A M EST JALEN (Andrew Finley MD [facility]) V43.1 Pseudophakia Pseudophakia Problem 03/14/2019 12:00:00 A M EST JALEN (Andrew Finley MD [facility]) Surgeries/Procedures Procedure Description Date Indications Data Source(s) Spirometry 01/30/2020 12:00:00 AM EST M EDENT ([facility], ) Intermediate Eye Exam Established Patient (25) Interme diate Eye Exam Established Patient (25) 10/24/2019 12:00:00 AM EDT JALEN (Haroldo Finley MD [facility]) Visual Field (GA) Visual Field (GA) 10/24/2019 12:00:00 AM EDT JALEN (Andrew Finley MD [facility]) Discission of membranous cataract, secondary (procedur e) 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 09/21/2019 12:00:00 AM EDT JALEN (Andrew Finley MD [facility]) Intermediate Eye Exam Established Patient Intermediate Eye Exam Established Patient 09/21/2019 12:00:00 AM EDT JALEN (Haroldo Finley MD [facility]) Endoscopy Upper GI Biopsy 09/20/2019 12:00:00 AM EDT MEDENT ([facility]) Intermediate Eye Exam Established Patient Intermediate Eye Exam Established Patient 09/03/2019 12:00:00 AM EDT JALEN (Haroldo Finley MD [facility]) Intermediate Eye Exam Established Patient Intermediate Eye Exam Established Patient 08/01/2019 12:00:00 AM EDT JALEN (Haroldo Finley MD [facility]) Transitional Care NO CHARGE Visit 07/26/2019 12:00:00 AM EDT [facility]CW[facility]) TRANS CARE MGMT 7 DAY DISCH 07/04/2019 12:00:00 AM EDT eCW1 ([facility]) Office Visit, Est Pt., Level 2 FC 07/04/2019 12:00:00 AM EDT eCW1 ([facility]) Office Visit, Est Pt., Level 4 PC 05/01/2019 12:00:00 AM EST eCW1 ([facility]) RESPIRATORY FLOW VOLUME LOOP 04/23/2019 12:00:00 AM ES T MEDENT ([facility] Visual Field (WAIVER OF LIABILITY ON FILE (ABN)) Visua l Field (WAIVER OF LIABILITY ON FILE (ABN)) 03/26/2019 12:00:00 AM EST JALEN (Andrew Finley [facility]) Scodi, optic nerve with interpretation a nd report (WAIVER OF LIABILITY ON FILE (ABN)) Scodi, optic nerve with interpretation a nd report (WAIVER OF LIABILITY ON FILE (ABN)) 03/26/2019 12:00:00 AM EST JALEN (Haroldo Finley MD [facility]) Corneal Pachymetry (WAIVER OF LIABILITY ON FILE (ABN)) Corneal Pachymetry (WAIVER OF LIABILITY ON FILE (ABN)) 03/26/2019 12:00:00 AM EST JALEN (Andrew Finley MD [facility]) Intermediate Eye Exam Established Patient Intermediate Eye Exam Established Patient 03/14/2019 12:00:00 AM EST JALEN (Haroldo Finley MD [facility]) Results ID Date Data Source [id number] 01/30/2020 09:04:00 AM EST MEDENT ([facility], ) Name Value Range Interpretation Code Description Data Cora rce(s) Supporting Document(s) PDFReport Laboratory test result MEDENT ([facility], ) FVC-Pre 1.32 L MEDENT ([facility], ) FVC-Pred 2.02 L MED[facility] ([facility]) FVC-LLN 1.43 L [facility] ([facility]) FVC-%Pred-Pre 65 L MEDENT ([facility]) Fev1-Pred 1.48 L [facility] ([facility]) Fev1-LLN 0.99 L [facility] ([facility]) Fev1-Pre 1.03 L [facility] ([facility]) Fev1-%Pred-Pre 69 L MEDENT ([facility]) Fev6-Pre 1.32 L MED[facility] ([facility]) Fev6-%Pred-Pre 69 L MEDENT ([facility]) Fev6-Pred 1.90 L [facility] ([facility]) Nfb4rel-Twkm 74 % MEDENT ([facility]) Fev6-LLN 1.32 L [facility] ([facility]) Hvk2udo-Vbx 78 % MED[facility] ([facility]) Mit5xsk-IHL 64 % MED[facility] ([facility]) Qbc6ork-%Pred-Pre 105 % MEDENT ([facility]) Rsn7sjq-Stkq 94 % MED[facility] ([facility]) Puu9jrh-Etn 100 % MED[facility] ([facility]) Ucb7rwi-%Pred-Pre 106 % MED[facility] ([facility]) FEFMax-Pred 4.05 L/E/sec MEDENT ([facility]) FEFMax-Pre 2.62 L/E/sec MED[facility] ([facility]) FEFMax-LLN 2.60 L/E/sec MED[facility] ([facility]) FEFMax-%Pred-Pre 64 L/E/sec MED[facility] ([facility]) Paq0349-%Pred-Pre 71 L/E/sec MEDENT ([facility]) Wzw0453-Ykou 1.13 L/E/sec MEDENT ([facility]) Spr9151-Qmn 0.81 L/E/sec MED[facility] ([facility]) ExpTime-Pre 4.53 sec MEDENT ([facility]) Luh0uau7-Aspa 78 % MED[facility] ([facility]) Ptb4087-VUP 0.08 L/E/sec MED[facility] ([facility]) Ccc9rkt4-Hoi 78 % MED[facility] ([facility]) Sci8dfe0-%Pred-Pre 99 % MED[facility] ([facility]) Eys4cfr4-GRS 69 % [facility] ([facility]) ID Date Data Source [id number] 09/20/2019 12:36:00 PM EDT MEDENT ([facility]) Name Value Range Interpretation Code Description Data Cora rce(s) Supporting Document(s) Surgical pathology study Laboratory test result MEDENT ([facility]) FINAL DIAGNOSIS Gastric biopsy: Chronic gastritis with mild architectural distortion, no acute inflammation or features of H. pylori are noted. 10/18/20191548 CLINICAL DIAGNOSIS Gastric ulcer follow up 10/18/20191548 GROSS DIAGNOSIS Received in formalin, labeled "gastric biopsy" are two fragments of tissue, 0.3 and 0.4 cm. All in one. 10/18/20191548 Signed Eli Hi M.D. 10/18/20191548 ID Date Data Source [id number] 09/15/2019 12:00:00 AM EDT [facility] Name Value Range Interpretation Code Description Data Cora rce(s) Supporting Document(s) SARS coronavirus 2 RNA [facility] This lab was ordered by [facility] and reported by [facility]. ID Date Data Source [id number] 08/29/2019 12:18:00 PM EDT [facility] Name Value Range Interpretation Code Description Data Cora rce(s) Supporting Document(s) White Blood Count 9.5 10 4.0-10.0 Normal (applies to non-numeri c results) MEDENT ([facility]) Hematocrit 32.8 % 36.0-47.0 Below low normal [facility] ( [facility]) Hemoglobin 10.0 g/dL 12.0-15.5 Below low normal [facility] ( [facility]) Red Blood Count 3.54 10 4.00-5.40 Below low normal [facility] ([facility]) Mean Corpuscular HGB Conc 30.5 g/dL 32.0-36.5 Below low normal [facility] ([facility]) Mean Corpuscular Volume 92.7 fl 80.0-96.0 Normal ( applies to non-numeric results) [facility] ([facility]) Mean Corpuscular Hemoglobin 28.2 pg 27.0-33.0 Norm al (applies to non-numeric results) [facility] ([facility]) Platelet Count, Automated 224 10 150-450 Normal (applies to non-numeric results) [facility] ([facility]) Red Cell Distribution Width 14.4 % 11.5-14.5 Norm al (applies to non-numeric results) [facility] ([facility]) Neutrophils % 62.0 % 36.0-66.0 Normal (applies to non-numeric re sults) [facility] ([facility]) Baso % 0.3 % 0.0-1.0 Normal (applies to non-numeric resul ts) MED[facility]) Lymph % 23.8 % 24.0-44.0 Below low normal [facility] ( [facility]) [place] % 9.7 % 0.0-5.0 Above high normal [facility] ([facility]) Eos % 3.8 % 0.0-3.0 Above high normal MED[facility] ([facility]) Immature Granulocyte % 0.4 % 0-3.0 Normal (applies to non-n umeric results) [facility] ([facility]) Neutrophils # 5.9 10 1.5-8.5 Normal (applies to non-numeric re sults) [facility] ([facility]) Nucleated Red Blood Cell % 0.0 % 0-0 Normal (applies to n on-numeric results) [facility] ([facility]) [place] # 0.9 10 0.0-0.8 Above high normal [facility] ([facility]) Lymph # 2.3 10 1.5-5.0 Normal (applies to non-numeric resul ts) [facility]) Eos # 0.4 10 0.0-0.5 Normal (applies to non-numeric resul ts) [facility] ([facility]) Baso # 0.0 10 0.0-0.2 Normal (applies to non-numeric resul ts) [facility]) 09/10/19 (TueSep 09) 02:48 PM ANDREW OSBORN [facility]. ID Date Data Source [id number] 08/29/2019 12:18:00 PM EDT [facility] ([facility]) Name Value Range Interpretation Code Description Data Cora rce(s) Supporting Document(s) Cytoplasmic Neutrop AB Anca-C Laboratory test result Normal (applies to non- numeric results) [facility] ([facility]) Anca-Atypical Laboratory test result Normal (applies t o non-numeric results) [facility] ([facility]) The atypical pANCA pattern has been obse rved in a significant percentage of patients with ulcerative colitis, primary sclerosing cholangitis and autoimmune hepatitis. Perinuclear AB Anca-P Laboratory test result Nor mal (applies to non-numeric results) [facility] ([facility]) The presence of positive fluorescence ex hibiting P-ANCA or C-ANCA patterns alone is not specific for the diagnosis of Ashanti's Granulomatosis (WG) or microscopic polyangiitis. Decisions about treatment should not be based solely on ANCA IFA results. The International ANCA [employer] Consensus recommends follow up testing of positive sera with both SD- 3 and MPO-ANCA enzyme immunoassays. As m any as 5% serum samples are positive only by EIA. Ref. AM J Clin Pathol 1999;111:507-513. ID Date Data Source [id number] 08/29/2019 12:18:00 PM EDT [facility] ([facility]) Name Value Range Interpretation Code Description Data Cora rce(s) Supporting Document(s) Prothrombin Time 14.7 s 11.8-14.0 Above high normal [facility] Inr 1.18 Normal (applies to non-numeric resul ts) [facility] ([facility]) THERAPUTIC HUMAN INR VALUES INDICATIONS NORMAL RANGES PROPHYLAXIS/TREATMENT OF: VENOUS THROMBOSIS 2.0-3.0 PULMONARY EMBOLISM 2.0-3.0 PREVENTION OF SYSTEMIC EMBOLISM FROM: TISSUE HEART VALVES 2.0-3.0 ACUTE MYOCARDIAL INFARCTION 2.0-3.0 VALVULAR HEART DISEASE 2.0-3.0 ATRIAL FIBRILLATION 2.0-3.0 MECHANICAL VALVES(HIGH RISK) 2.5-3.5 RECURRENT MYOCARDIAL INFARCTION 2.5-3.5 ID Date Data Source [id number] 08/29/2019 12:18:00 PM EDT [facility] ([facility]) Name Value Range Interpretation Code Description Data Cora rce(s) Supporting Document(s) Gamma glutamyl transferase [Enzymatic activity/volume] in Serum or Plasma 29 U/L 5-55 Normal (applies to non-numeric results) [facility]) ID Date Data Source [id number] 08/29/2019 12:18:00 PM EDT [facility] ([facility]) Name Value Range Interpretation Code Description Data Cora rce(s) Supporting Document(s) Ast/Sgot 31 U/L 7-37 Normal (applies to non-numeric resul ts) [facility] ([facility]) Alkaline Phosphatase 143 U/L 45-117 Above high normal [facility] ([facility]) Alt/SGPT 23 U/L 12-78 Normal (applies to non-numeric resul ts) [facility] Bilirubin,Total 0.4 mg/dL 0.2-1.0 Normal (applies to non-numeric results) [facility] ([facility]) Total Protein 7.8 GM/DL 6.4-8.2 Normal (applies to non-numeric re sults) [facility]) Albumin 2.8 GM/DL 3.2-5.2 Below low normal [facility] ( [facility]) Bilirubin,Direct 0.2 mg/dL 0.0-0.2 Normal (applies to non-numeric results) [facility] ([facility]) Albumin/Globulin Ratio 0.6 1.2-2.2 Below low normal [facility] ([facility]) ID Date Data Source [id number] [facility]2019 [facility] Name Value Range Interpretation Code Description Data Cora rce(s) Supporting Document(s) IgA [Mass/volume] in Serum or Plasma 577.0 mg/dL 70-400 Above hig h normal [facility] ([facility]) Tissue transglutaminase IgA Ab [Units/volume] in Serum Labor atory test result 0-3 Normal (applies to non-numeric results) [facility]) Negative 0 - 3 Weak Positive 4 - 10 Positive >10 . Tissue Transglutaminase (tTG) has been identified as the endomysial antigen. Studies have demonstr- ated that endomysial IgA antibodies have over 99% specificity for gluten sensitive enteropathy. Liver-Kidney Microsomal Zulema Laboratory test result 0.0-20.0 Normal (applies to non-numeric results) [facility] ([facility]) Negative 0.0 - 20.0 Equivocal 20.1 - 24.9 Positive >24.9 . LKM type 1 antibodies are detected in patients with autoimmune hepatitis type 2 and in up to 8% of patients with chronic HCV infection. ID Date Data Source [id number] 08/29/2019 12:18:00 PM EDT [facility]) Name Value Range Interpretation Code Description Data Cora rce(s) Supporting Document(s) Hepatitis C Virus [place]ma Index 0.2 INDEX Normal (appli es to non-numeric results) [facility]) Negative Not infected with HCV, unless recent infection is suspected or other evidence exists to indicate HCV infection. Hepatitis B Surface Antigen Laboratory test result Normal (applies to non- numeric results) [facility] ([facility]) Hepatitis A Antibody Igm Laboratory test result Normal (applies to non-numeric results) [facility] ([facility]) Hepatitis B Core Antibody Igm Laboratory test result Normal (applies to non- numeric results) [facility]) ID Date Data Source [id number] 08/29/2019 12:18:00 PM EDT [facility]) Name Value Range Interpretation Code Description Data Cora rce(s) Supporting Document(s) Iron (Fe) 46 ug/dL 50-170 Below low normal [facility] ( [facility]) Total Iron Binding Capacity 241 ug/dL 250-450 Below low normal [facility] ([facility]) Percent Saturation 19.1 % 13.2-45.0 Normal (applies to non-numer ic results) [facility]) ID Date Data Source [id number] 08/29/2019 12:18:00 PM EDT [facility] ([facility]) Name Value Range Interpretation Code Description Data Cora rce(s) Supporting Document(s) Mitochondria Ab [Units/volume] in Serum Laboratory test result 0 .0-20.0 Normal (applies to non-numeric results) [facility]) Negative 0.0 - 20.0 Equivocal 20.1 - 24.9 Positive >24.9 . Mitochondrial (M2) Antibodies are found in 90-96% of patients with primary biliary cirrhosis. ID Date Data Source [id number] 08/29/2019 12:18:00 PM EDT [facility]) Name Value Range Interpretation Code Description Data Cora rce(s) Supporting Document(s) Antinuclear Antibodies Direct Laboratory test result Normal (applies to non- numeric results) [facility]) Performed at: - [facility] [id number] [place]: Estefany Brown MD, Phone: [phone] Performed at: - [facility] [id number] [place]: Heena Siu MD, Phone: [phone] ID Date Data Source Comprehensive Metabolic Profile (CMP) 04/10/2019 12:00:00 AM EST [facility] Name Value Range Interpretation Code Description Data Cora rce(s) Supporting Document(s) 101 70-100 GLUCOSE, FASTING eCW1 ([facility]) 34.1 >39 GLOMERULAR FILTRATION RATE eCW 1 ([facility]) 15 7-18 BLOOD UREA NITROGEN eCW1 ([facility]) 1.56 0.55-1.30 CREATININE FOR GFR eCW1 ([facility]) 107 98-107 CHLORIDE LEVEL eCW1 ([facility]) 4.0 3.5-5.1 POTASSIUM SERUM eCW1 ([facility]) 144 136-145 SODIUM LEVEL eCW1 ([facility]) 31 21-32 CARBON DIOXIDE LEVEL eCW1 ([facility]) 9.8 8.8-10.2 CALCIUM LEVEL eCW1 ([facility]) 28 12-78 ALT/SGPT eCW1 [facility]) 37 7-37 AST/SGOT eCW1 ([facility]) 138 45-117 ALKALINE PHOSPHATASE eCW1 ([facility]) 7.6 6.4-8.2 TOTAL PROTEIN eCW1 ([facility]) 0.5 0.2-1.0 BILIRUBIN,TOTAL eCW1 ([facility]) 3.0 3.2-5.2 ALBUMIN eCW1 ([facility]) 0.65 1.00-1.93 ALBUMIN/GLOBULIN RATIO eCW1 ([facility]) ID Date Data Source CBC with Differential 04/10/2019 12:00:00 AM EST eCW1 ([facility] [facility]) Name Value Range Interpretation Code Description Data Cora rce(s) Supporting Document(s) 8.1 4.0-10.0 WHITE BLOOD COUNT eCW1 ([facility]) 31.6 36.0-47.0 HEMATOCRIT eCW1 (On license of [facility]) 3.35 4.00-5.40 RED BLOOD COUNT eCW1 ([facility]) 9.8 12.0-15.5 HEMOGLOBIN eCW1 (On license of [facility]) 94.3 80.0-96.0 MEAN CORPUSCULAR VOLUME e CW1 ([facility]) 31.0 32.0-36.5 MEAN CORPUSCULAR HGB CONC eCW1 ([facility]) 29.3 27.0-33.0 MEAN CORPUSCULAR HEMOGLOB IN eCW1 ([facility]) 60.3 36.0-66.0 NEUTROPHILS % eCW1 ([facility]) 153 150-450 PLATELET COUNT, AUTOMATED eCW1 ([facility]) 15.1 11.5-14.5 RED CELL DISTRIBUTION WID TH eCW1 ([facility]) 5.6 0.0-3.0 EOS % eCW1 [facility]) 0.5 0.0-1.0 BASO % eCW1 [facility]) 21.3 24.0-44.0 LYMPH % eCW1 [facility]) 11.8 0.0-5.0 MONO % eCW1 [facility]) 1.7 1.5-5.0 LYMPH # eCW1 [facility]) 1.0 0.0-0.8 MONO # eCW1 ([facility]) 4.9 1.5-8.5 NEUTROPHILS # eCW1 ([facility]) 0.0 0.0-0.2 BASO # eCW1 [facility]) 0.5 0.0-0.5 EOS # eCW1 [facility] ID Date Data Source RENAL PROFILE 03/16/2019 12:00:00 AM EST eCW1 ([facility]) Name Value Range Interpretation Code Description Data Cora rce(s) Supporting Document(s) 11 7-18 BLOOD UREA NITROGEN eCW1 ([facility]) 84 70-100 GLUCOSE, FASTING eCW1 ([facility]) 45.3 >39 GLOMERULAR FILTRATION RATE eCW 1 ([facility]) 1.22 0.55-1.30 CREATININE FOR GFR eCW1 ([facility]) 144 136-145 SODIUM LEVEL eCW1 ([facility]) 3.8 3.5-5.1 POTASSIUM SERUM eCW1 ([facility]) 30 21-32 CARBON DIOXIDE LEVEL eCW1 ([facility]) 108 98-107 CHLORIDE LEVEL eCW1 ([facility]) 2.5 3.2-5.2 ALBUMIN eCW1 ([facility]) 8.6 8.8-10.2 CALCIUM LEVEL eCW1 ([facility]) 3.2 2.5-4.9 PHOSPHORUS LEVEL eCW1 ([facility]) ID Date Data Source VITAMIN B12 LEVEL 03/16/2019 12:00:00 AM EST eCW1 ([facility]) Name Value Range Interpretation Code Description Data Cora rce(s) Supporting Document(s) [id number] VITAMIN B12 LEVEL eCW1 ([facility]) ID Date Data Source SERUM PROTEIN ELECTROPHORESIS 03/16/2019 12:00:00 AM EST eCW 1 [facility]) Name Value Range Interpretation Code Description Data Cora rce(s) Supporting Document(s) 6.2 6.4-8.2 TOTAL PROTEIN eCW1 ([facility]) ID Date Data Source Reticulocyte Count Sysmex 03/16/2019 12:00:00 AM EST eCW1 ([facility]) Name Value Range Interpretation Code Description Data Cora rce(s) Supporting Document(s) 0.9 0.5-1.5 RETICULOCYTE % eCW1 ([facility]) ID Date Data Source H PYLORI QUALITATIVE IGG 03/16/2019 12:00:00 AM EST eCW1 ([facility]) Name Value Range Interpretation Code Description Data Cora rce(s) Supporting Document(s) NEGATIVE NEGATIVE H PYLORI QUALITATIVE IgG eCW1 ([facility]) ID Date Data Source [id number] 02/24/2019 12:06:37 AM EST [facility] Name Value Range Interpretation Code Description Data Cora rce(s) Supporting Document(s) &PDF [facility] XQIFQt4pJlAVQkGk28/USEvdYJFub7WcFCluDBu2UXdhJTZoR0RsgDyuGJAVU5gQGzrSNFTENiYyVRNB pL0 [file] 3LxUrKzTHj/xbZkJE2/Wall+7Q+7RlAdQuxFOK//DHbCFknB6UWmLHtJdewDc92IK7crAC40F5/rDY8WWD gaKi/NrEwB+HYo8TW5A/q+x3mJOxdbKu91b+ZD3zVl9lGaEf7FfM0e+K4mh+WMnvkI+CY+dnSpy+s/vp information technology k/mdgUHzAOpj9wD0r8tgJp9OONGUjyywd2ZzC0gQbf Ally/JNyfe3La/Db00xTGuB/VDJxzJ8E3AIAj8XXNwlmS3LR/KW4kLxJDwXe2971BWzUY7sVLynvSxmb9 [file] ICAgICAgICAgICAgICAgICAgICAgICAgICAgICAgICAgICAgICAgICAgICAgICAgICAgICAgICAgICAg YGZbTSKvJIPnXO5EIPJiGTKeVUTbMQJkGLNcSSMcRLQpDLQaLWGdGAFmKYUiFJVpFJFdMADfVGYdKARi ICAgICAgICAgICAgICAgICAgICAgICAgICAgICAgIC UfGQAqLRSuFLBmARCmEFIaGFHuIM1RVFXbYKCxKCOrQUDhACOsTJMhBBNsUPEvPXBzTYHtTEPeUIJiSG AgICAgICAgICAgICAgICAgICAgICAgICAgICAgICAgICAgICAgICAgICAgICAgICAgICAgICAgICAgIC AyVK8APPWjHWXzBQIaCEOrEATiDVNjEMPbSPOzNGNj ICAgICAgICAgICAgICAgICAgICAgICAgICAgICAgICAgICAgICAgICAgICAgICAgICAgICAgICAgICAg TDBgLMRfJAGfKAByBV6VGGDmKHLuFCPgSQJbEVNfPWRdUUZzNHXdVPLzCFMhMGXoCQCmBCPxKFAuAMTb ICAgICAgICAgICAgICAgICAgICAgICAgICAgICAgIC KtKPRtQKKaSUDzJINsFUGgBNZuFHUsEY9GEPWxCEQoLIPdVIRzBMIkNKHfQQVeXYQtPTUbLGAaYDWmHP AgICAgICAgICAgICAgICAgICAgICAgICAgICAgICAgICAgICAgICAgICAgICAgICAgICAgICAgICAgIC FoODPlGB4APOPhPGXiNMUfXMXmRXRtVLPoLLHdBMMl ICAgICAgICAgICAgICAgICAgICAgICAgICAgICAgICAgICAgICAgICAgICAgICAgICAgICAgICAgICAg CKFrMDAcXSRpVWSxVDShKP5YJLZvZCXvCVClVGPzHYQsDVEiJNKpXXShUWVaDBJdKPWbBARyYJHdMQNh ICAgICAgICAgICAgICAgICAgICAgICAgICAgICAgIC DxWOEvYHVuYCTmHQRiMOFuPRVaSDVqHRKhYM8ZKCFmFIQdRZPiZKCcJHCgFREgVBMmTMSnVIAcNZNsCA AgICAgICAgICAgICAgICAgICAgICAgICAgICAgICAgICAgICAgICAgICAgICAgICAgICAgICAgICAgIC DuJMRbIOXkOP5OYHXqHOEoRYXtKYYwEXWmKTKyUEUn ICAgICAgICAgICAgICAgICAgICAgICAgICAgICAgICAgICAgICAgICAgICAgICAgICAgICAgICAgICAg AJMgHMItLCNsICJgFYOtQUNeOE3RBU98tBGtr4I3ISVfAL7ekwd/Xh2PLEfcdeCqmGNtXX1LDrPmKB8n yu5CNrNlFZ7krk4DREiSKyBaR9D5oRGvKBNoADAXFa FkL34zKGtpOn70ICqiACEeIhHiMYd8Yn9ZPyJoO5obRSTuDcZ7SSYrGpA9JJBgIgPuEColKY2Nh9UfnE AyDQo+Ee6NFB7th7GsLQytJxPzOA8scq1AWQyGUhFlZ9R8cRAqM0R0PTgwOf0QHUQyJRWkKkWpTMIDJO vxIQ8GED6ixbT2HS7IsERkYHSfTAErfFFuAXc0Q87m lZIkWFdpNE5REIH+Samm+Wk7QCYLsOPKnOWWgQbMxATBKAlXuT74avTNwOYGxFRUzIEKmQq8GUYKqR9Va gcTuwGzdoeGfSREcAEKQZV7QDNpatcJnnVRhoHitPS72aSuyVB3AIx5NTlRdVS2wth3FuTJcAw3JQERz IP9ZNBQkUXYdHLPkTSL6GLCaTnBlPEhcROQjGGNpEO J4JPBsIETiHC0BRrVbDPLhXYW1LGhzPOZgKENqqb7UGJIwXYU4SUG3SRWdFAJwWIUbNOokKRJcFCJfCt NzEFKuWUIfOT5JStHfDOGoTGS4FivcDGFdAJWbbb9PWKQdLLChYal2BrRsZAEqCDDyDCuqFCYhKYO2Gf B6SUXcSPLoQZ5BTmKwWXAxEJT1UmVfWYSlKPZcgs9T DYAcFUPxFaiuOlQtTGAlLLNkBPayQQPoQRN8OKU9JBCwUNZqPI2JMfKgCOQtSUakZMvkJWHsLIItve2J ULViJBLvRCY3TSApPOMqMEKlMYgtWXSrAFE4LEjjVZZvGVYoHV3STyDaAEXzJMx4QVwoUZFsVNDnup7Y MDAwMDAxMzUxNCAwMDAwMCBuDQowMDAwMDEzODMxID AaCFNiLD0NAyWnXJCdRINoXBMiTZOsPYEmvz0MWXMoFHRvNZJ4SrIqXSGpBBIeSNqxSDKwVLA3LDMzXY OkVHLhEM5ZWdIoSXIcXLEdZbHeITMxYWHjvz4ZKQHnHWFzPLW2LfZnRMTmQGTiPHpmRDYmFSN3XgMqOJ HvYJZhCJ4MGnBlNZZhCqH1RWQzKIFmNPTots8HYEJd HXAjSNNcKzHrGUGuEQLiLRhfCPVkNWV6FtYzKFWcTFIzNZ4ZJyNcBNDlAol0IaVgRHYoQABinv9JKHFi TII5VlI2REMzLRQaGOVeAWucUANcFTRbRLc8BLGtXUBnAC3AFvCcCSGnExL9RtItLDUhIDIowr6XMFXq QWR8VPQuFYRcMASiNYXnHTxjGLDaPEg8Dac5BYCsBC HuZC4SFrFoLTYsVZyvARrcCQXiHCEwev5WYJHfFXN6BQnwNxCfJWJxDYDaTNy2nuEueNReZAa2RL5MR0 GmrmTyShCXNk0Ds558UQEvOSCmFl7MT0kxFu0lMKUzQNWTXf1NPKh0GxOgFQQbXGC6TYLfPEmgUXZgFL P4PDXrJeU3JLSeQCT+WWzpPKH5BvLoZSggSCMjUQGx Z1B1YWwrD8O8QCCyQiN5Mp5mTDBEYp7+XUztnAXjuMtyQNMHPeh6QTo7IAcaYFOKBs1E Procedure Social History Code Duration Value Status Description Data Source(s ) Smoking 01/31/2020 12:00:00 AM EST Never Smoker completed Never S moker [facility] Smoking 01/30/2020 12:00:00 AM EST Patient has never smoked co mpleted Patient has never smoked MEDENT ([facility]) Smoking 10/24/2019 07:59:33 AM EDT Never smoked tobacco (sherwin grimaldo) completed Never smoked tobacco (finding) JALEN (Andrew Finley [facility]) Smoking 09/21/2019 08:41:23 AM EDT Never smoked tobacco (sherwin grimaldo) completed Never smoked tobacco (finding) JALEN (Andrew Finley MD [facility]) Smoking 08/16/2019 12:00:00 AM EDT Never Smoker completed Never S moker eCW[facility]) Smoking 08/16/2019 12:00:00 AM EDT Never Smoker completed Never S moker eCW1 ([facility]) Smoking 08/02/2019 12:00:00 AM EDT Never Smoker completed Never S moker eCW1 ([facility]) Smoking 08/02/2019 12:00:00 AM EDT Never Smoker completed Never S moker eCW1 ([facility]) Smoking 08/02/2019 12:00:00 AM EDT Never Smoker completed Never S moker eCW1 ([facility]) Vital Signs ID Date Data Source UNK Name Value Range Interpretation Code Description Data Source(s) Body surface area Derived from formula 1.44 m2 1.44 m2 [facility] ([facility]) Body weight 50.350 kg 50.350 kg [facility] ([facility]) [place] body weight 100 [lb_av] 100 [lb_av] [facility] Body mass index (BMI) [Ratio] 22.4 kg/m2 22.4 k g/m2 [facility] ([facility]) Body weight 111.00 [lb_av] 111.00 [lb_av] [facility] ([facility]) Body height 59 [in_i] 59 [in_i] [facility] ([facility]) 4'11" Diastolic blood pressure 65 mm[Hg] 65 mm[Hg] [facility] ([facility]) Systolic blood pressure 114 mm[Hg] 114 mm[Hg] M EDENT ([facility]) Diastolic blood pressure 54 mm[Hg] 54 mm[Hg] eCW1 ([facility]) Systolic blood pressure 94 mm[Hg] 94 mm[Hg] e CW1 ([facility]) Body temperature 96.5 [degF] 96.5 [degF] eCW1 ( [facility]) Respiratory rate 20 /min 20 /min eCW1 ([facility]) Heart rate 94 /min 94 /min eCW1 ([facility]) Body mass index (BMI) [Ratio] 20.89 kg/m2 20.89 kg/m2 eCW1 ([facility]) Body height 60 [in_i] 60 [in_i] eCW1 ([facility]) Body weight 107 [lb_av] 107 [lb_av] eCW1 ([facility]) Body surface area Derived from formula 1.42 m2 1.42 m2 [facility] ([facility]) Body weight 48.705 kg 48.705 kg [facility] ([facility]) [place] body weight 100 [lb_av] 100 [lb_av] MED[facility] T ([facility]) Body mass index (BMI) [Ratio] 21.7 kg/m2 21.7 k g/m2 [facility] ([facility]) Body weight 107.38 [lb_av] 107.38 [lb_av] MEDEN T ([facility]) Body height 59 [in_i] 59 [in_i] [facility] ([facility]) 4'11" Body temperature 97.8 [degF] 97.8 [degF] [facility] ([facility]) Oxygen saturation in Arterial blood by Pulse oximetry 95 % 95 % [facility] ([facility]) Heart rate 92 /min 92 /min [facility] ([facility]) Diastolic blood pressure 60 mm[Hg] 60 mm[Hg] [facility] ([facility]) Systolic blood pressure 112 mm[Hg] 112 mm[facility]] [facility] Body surface area Derived from formula 1.40 m2 1.40 m2 [facility] ([facility]) Body weight 47.401 kg 47.401 kg [facility] ([facility]) [place] body weight 100 [lb_av] 100 [lb_av] MED[facility] T ([facility]) Body mass index (BMI) [Ratio] 21.1 kg/m2 21.1 k g/m2 [facility] ([facility]) Body weight 104.50 [lb_av] 104.50 [lb_av] MED[facility] T ([facility]) Body height 59 [in_i] 59 [in_i] [facility] 4'" Diastolic blood pressure 66 mm[Hg] 66 mm[Hg] [facility] ([facility]) Systolic blood pressure 130 mm[Hg] 130 mm[Hg] [facility] Body surface area Derived from formula 1.40 m2 1.40 m2 [facility] ([facility]) Body weight 47.174 kg 47.174 kg [facility] ([facility]) [place] body weight 100 [lb_av] 100 [lb_av] MED[facility] T ([facility]) Body mass index (BMI) [Ratio] 21.0 kg/m2 21.0 k g/m2 [facility] ([facility]) Body weight 104.00 [lb_av] 104.00 [lb_av] MED[facility] T ([facility]) Body height 59 [in_i] 59 [in_i] [facility] ([facility]) 4" Diastolic blood pressure 61 mm[Hg] 61 mm[Hg] [facility] ([facility]) Systolic blood pressure 115 mm[Hg] 115 mm[Hg] M [facility] ([facility]) Diastolic blood pressure 56 mm[Hg] 56 mm[Hg] eCW1 [facility]) Systolic blood pressure 96 mm[Hg] 96 mm[Hg] e CW1 ([facility]) Body temperature 97.4 [degF] 97.4 [degF] eCW1 ( [facility]) Respiratory rate 20 /min 20 /min eCW1 ([facility]) Heart rate 105 /min 105 /min eCW1 ([facility]) Body mass index (BMI) [Ratio] 20.50 kg/m2 20.50 kg/m2 eCW1 ([facility]) Body height 60 [in_i] 60 [in_i] eCW1 ([facility]) Body weight 105 [lb_av] 105 [lb_av] eCW1 ([facility]) Diastolic blood pressure 40 mm[Hg] 40 mm[Hg] eCW1 ([facility]) Systolic blood pressure 82 mm[Hg] 82 mm[Hg] e CW1 ([facility]) Body temperature 97 [degF] 97 [degF] eCW1 ([facility]) Respiratory rate 20 /min 20 /min eCW1 ([facility]) Heart rate 102 /min 102 /min eCW1 ([facility]) Body mass index (BMI) [Ratio] 20.89 kg/m2 20.89 kg/m2 eCW1 ([facility]) Body height 60 [in_i] 60 [in_i] eCW1 ([facility]) Body weight 107 [lb_av] 107 [lb_av] eCW1 ([facility]) Diastolic blood pressure 50 mm[Hg] 50 mm[Hg] eCW1 ([facility]) Systolic blood pressure 92 mm[Hg] 92 mm[Hg] e CW1 ([facility]) Body temperature 96.7 [degF] 96.7 [degF] eCW1 ( [facility]) Respiratory rate 20 /min 20 /min eCW1 ([facility]) Heart rate 112 /min 112 /min eCW1 ([facility]) Body mass index (BMI) [Ratio] 24.41 kg/m2 24.41 kg/m2 eCW1 ([facility]) Body height 60 [in_us] 60 [in_us] eCW1 ([facility]) Body weight Measured 125 [lb_av] 125 [lb_av] eC W1 ([facility]) Diastolic blood pressure 48 mm[Hg] 48 mm[Hg] eCW1 ([facility]) Systolic blood pressure 82 mm[Hg] 82 mm[Hg] e CW1 ([facility]) Body temperature 96.5 [degF] 96.5 [degF] eCW1 ( [facility]) Respiratory rate 20 /min 20 /min eCW1 ([facility]) Heart rate 97 /min 97 /min eCW1 ([facility]) Body mass index (BMI) [Ratio] 20.50 kg/m2 20.50 kg/m2 eCW1 ([facility]) Body height 60 [in_us] 60 [in_us] eCW1 ([facility]) Body weight Measured 105 [lb_av] 105 [lb_av] eC W1 ([facility]) Body mass index (BMI) [Ratio] 21.2 kg/m2 [...] blood pressure 58 mm[Hg] 58 mm[Hg] eCW1 ([facility]) Systolic blood pressure 96 mm[Hg] 96 mm[Hg] e CW1 ([facility]) Body temperature 96.7 [degF] 96.7 [degF] eCW1 ( [facility]) Respiratory rate 18 /min 18 /min eCW1 ([facility]) Heart rate 99 /min 99 /min eCW1 ([facility]) Body mass index (BMI) [Ratio] 21.09 kg/m2 21.09 kg/m2 eCW1 ([facility]) Body height 60 [in_us] 60 [in_us] eCW1 ([facility]) Body weight Measured 108 [lb_av] 108 [lb_av] eC W1 ([facility]) Diastolic blood pressure 60 mm[Hg] 60 mm[Hg] eCW1 ([facility]) Systolic blood pressure 130 mm[Hg] 130 mm[Hg] e CW1 ([facility]) Body temperature 98.1 [degF] 98.1 [degF] eCW1 ( [facility]) Respiratory rate 18 /min 18 /min eCW1 ([facility]) Heart rate 110 /min 110 /min eCW1 ([facility]) Body mass index (BMI) [Ratio] 22.77 kg/m2 22.77 kg/m2 eCW1 ([facility]) Body height 60 [in_us] 60 [in_us] eCW1 ([facility]) Body weight Measured 116.6 [lb_av] 116.6 [lb_av ] eCW1 [facility]) Patient Treatment Plan of Care Planned Activity Planned Date Details Description Data Source (s) Albuterol 0.83 MG/ML Inhalant Solution 06/27/2019 12:00:00 AM EDT eCW1 ([facility]) fidaxomicin 200 MG Oral Tablet [Dificid] 06/27/2019 12:00:00 AM EDT eCW1 ([facility]) fidaxomicin 200 MG Oral Tablet [Dificid] 06/27/2019 12:00:00 AM EDT eCW1 ([facility]) fidaxomicin 200 MG Oral Tablet [Dificid] 06/27/2019 12:00:00 AM EDT eCW1 ([facility]) fidaxomicin 200 MG Oral Tablet [Dificid] 06/27/2019 12:00:00 AM EDT eCW1 ([facility]) Sucralfate 1000 MG Oral Tablet 06/27/2019 12:00:00 AM EDT eCW1 ([facility]) Piloc[place] Hydrochloride 10 MG/ML Ophthalmic Solution 03/08/2019 12:00:00 AM EST eCW1 [facility] Pilocarpine Hydrochloride 10 MG/ML Ophthalmic Solution 03/08/2019 12:00:00 AM EST eCW1 [facility] Sucralfate 100 MG/ML Oral Suspension 03/08/2019 12:00:00 AM EST eCW1 ([facility])
--- NOTE | 2020-04-15 18:18 | REP ---
INDICATION: DYSPNEA/COUGH. COMPARISON: Comparison portable chest x-ray June 22, 2019. TECHNIQUE: Portable upright AP chest radiograph. FINDINGS: Extensive cystic bronchiectasis with air-filled cystic bronchiectatic spaces and intervening opacification filling the entire left hemithorax. There is volume loss in left hemithorax. These findings are unchanged. Shift of the mediastinum to the left is again noted. There is peripheral pattern of diffuse interstitial fibrosis in the right lung which is similar to the prior study. No new infiltrate is appreciated. Heart borders are obscured. Monitoring electrodes and oxygen delivery tubing seen.. IMPRESSION: Extensive severe chronic changes with cystic bronchiectasis and volume loss occupying the entire left lung unchanged. Moderate diffuse interstitial fibrosis pattern is seen in the right lung. No acute infiltrate is seen.. <Electronically signed by Trav Sullivan > 04/15/20 [id number]
[2020-04-15 18:26] LABS: ALBUMIN 2.7 GM/DL (3.2-5.2); ALT/SGPT 26 U/L (12-78); BILIRUBIN,DIRECT 0.3 MG/DL (0.0-0.2); BILIRUBIN,TOTAL 0.7 MG/DL (0.2-1.0); BLOOD UREA NITROGEN 21 MG/DL (7-18); CALCIUM LEVEL 9.1 MG/DL (8.8-10.2); CARBON DIOXIDE LEVEL 27 MEQ/L (21-32); CHLORIDE LEVEL 105 MEQ/L (98-107); CK-MB VALUE MASS < 1.0 NG/ML (<3.6); CPK CREATINE PHOSPHOKINASE 64 U/L (26-192); CREATININE FOR GFR 1.82 MG/DL (0.55-1.30); GLOMERULAR FILTRATION RATE 28.5 (>32); GLUCOSE, FASTING 112 MG/DL (70-100); MB/CK RELATIVE INDEX 1.56 (< OR =4); NT-PRO BNP 1809 PG/ML (<450); SODIUM LEVEL 139 MEQ/L (136-145); THYROXINE (T4) 8.1 UG/DL (4.5-12.0); TOTAL PROTEIN 7.6 GM/DL (6.4-8.2); TROPONIN I < 0.02 NG/ML (< 0.10)
[2020-04-15 18:52] LABS: RSV AMPLIFICATION NEGATIVE (NEGATIVE)
--- NOTE | 2020-04-15 19:53 | ECGEPIP ---
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
--- NOTE | 2020-04-15 20:22 | REPVR ---
PROCEDURE INFORMATION: Exam: CT Chest Without Contrast; Diagnostic Exam date and time: 04/15/2020 7:55 PM Age: 79 years old Clinical indication: Shortness of breath; Additional info: SOB; ? Chf TECHNIQUE: Imaging protocol: Diagnostic computed tomography of the chest without contrast. 3D rendering (Not supervised by radiologist): MIP and/or 3D reconstructed images were created by the technologist. Radiation optimization: All CT scans at this facility use at least one of these dose optimization techniques: automated exposure control; mA and/or kV adjustment per patient size (includes targeted exams where dose is matched to clinical indication); or iterative reconstruction. COMPARISON: CT Chest without contrast 07/20/2019 2:44 PM FINDINGS: Lungs: Extensive cystic bronchiectasis demonstrated throughout the left lung zone again redemonstrated and stable in appearance. Remaining parenchyma is densely opacified. Multiple foci of cylindrical and cystic bronchiectasis demonstrated in the right lung as well. Extensive bilateral apical pleuroparenchymal scarring with multiple irregular parenchymal opacities in the right upper lung zone which appear grossly stable. No significant change in interstitial markings in the right lung demonstrated to suggest the presence of interstitial edema, cardiogenic or otherwise. Pleural spaces: Unremarkable. No pneumothorax. No pleural effusion. Heart: Marked volume loss in the left hemithorax results in shift of the heart mediastinal structures to the left. There is moderate atherosclerotic calcification of the coronary arteries. Mediastinal space: A small to moderate hiatal hernia is present. Pulmonary arteries: There is enlargement of the central pulmonary arteries, findings which can be associated with pulmonary arterial hypertension which should be correlated clinically. Aorta: There is fusiform dilatation of the ascending thoracic aorta which measures 3.6 cm. maximally. There is no saccular component. Lymph nodes: Unremarkable. No enlarged lymph nodes. Gallbladder and bile ducts: There is a gallstone present. No evidence of cholecystitis demonstrated. Kidneys and ureters: Nonobstructive renal calculi. Bones/joints: The spine demonstrates moderate degenerative changes. Soft tissues: Unremarkable. IMPRESSION: 1. Extensive cystic bronchiectasis demonstrated throughout the left lung zone again redemonstrated and stable in appearance. 2. Multiple foci of cylindrical and cystic bronchiectasis demonstrated in the right lung as well. 3. Extensive bilateral apical pleuroparenchymal scarring with multiple irregular parenchymal opacities in the right upper lung zone which appear grossly stable. 4. Marked volume loss in the left hemithorax results in shift of the heart mediastinal structures to the left. 5. No significant change in interstitial markings in the right lung demonstrated to suggest the presence of interstitial edema, cardiogenic or otherwise. 6. There is fusiform dilatation of the ascending thoracic aorta which measures 3.6 cm. maximally. There is no saccular component. 7. There is enlargement of the central pulmonary arteries, findings which can be associated with pulmonary arterial hypertension which should be correlated clinically. 8. A small to moderate hiatal hernia is present. 9. There is a gallstone present. No evidence of cholecystitis demonstrated. Electronically signed by: Mac Morris On 04/15/2020 20:21:48 PM
[2020-04-15] MEDS: PILOCARPINE 1% OPHTH SOLN 15 ML OS SCH (21:00)
[2020-04-15] MEDS ORDERED: cefTRIAXone SOD 1 GM in D5W MINI-BAG PLUS 50 ML IV ONE (21:00)
[2020-04-15] MEDS ORDERED: FURO40TA2 PO (21:19)
[2020-04-15] MEDS ORDERED: ACETAMINOPHEN TAB 650MG DOSE (2X325MG) PO PRN (22:15)
--- OUTSIDE RECORDS SUMMARY | 2020-04-15 22:23 | CCD ---
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 RONNA DO Unavailable [phone] Taty GUERRERO. RONNA DO Unavailable [phone] Taty GUERRERO. RONNA DO Unavailable [phone] CASEYMiller RONNA DO Unavailable [phone] CASEY, A. RONNA DO Unavailable [phone] CASEY, A. RNONA DO Unavailable [phone] CASEY A. RONNA DO Unavailable [phone] Miller GUERREROEW DO Unavailable [phone] [...] by Article 27-F of the [facility] Public Health law. If you continue you may have access to information: Regarding HIV / AIDS; Provided by facilities licensed or operated by the [facility] Office of Mental Health; or Provided by the [facility] Office for People With Developmental Disabilities. If such information is present, then the following [facility] mandated warning applies: This information has [...] law may result in a fine or fdc sentence or both. A general authorization for the release of medical or other information is NOT sufficient authorization for further disc losure. Allergies and Adverse Reactions Type Description Substance Reaction Status Data Source(s ) Drug allergy Cephalexin Cephalexin Unknown Active eCW1 ([facility]) Drug allergy Bimatoprost bimatoprost Unknown Active eCW1 ([facility]) Drug allergy Clarithromycin Clarithromycin Unknown Active eCW1 ([facility]) Drug allergy Istalol Timolol cough and trouble breathing Activ e eCW1 ([facility]) Drug allergy Bactrim sulfamethoxazole / trimethoprim stomach ache, appetite loss Active eCW1 ([facility]) Drug allergy Cosopt dorzolamide / timolol congestion and cough A ctive eCW1 ([facility]) Drug allergy Moxifloxacin HCl moxifloxacin Unknown Active eCW1 ([facility]) Drug allergy Dorzolamide HCl dorzolamide Unknown Active eCW1 ( [facility]) Drug allergy Benzalkonium Chloride Drug allergy Unknown Active eCW1 ([facility]) Drug allergy Brimonidine Tartrate brimonidine weak,altered mental status Active eCW1 ([facility]) Drug allergy Xalatan latanoprost pain in eye, heart racing Active eCW1 ([facility]) Drug allergy Avelox moxifloxacin Rash Active eCW1 ([facility]) Diclofenac Voltaren Diclofenac fever, heart racing Active eCW1 ([facility]) Timolol Timolol Timolol 5 MG Oral Tablet bronchospasm Active eCW1 ([facility]) SMZ-TMP DS SMZ-TMP DS SMZ-TMP DS difficulty breathing, dizziness Act iram eCW1 ([facility]) Travatan Travatan Travatan pain in eye, heart racing Active eCW1 ([facility]) Levaquin Levaquin Levofloxacin 750 MG Oral Tablet [Levaquin] rash Active eCW1 ([facility]) Timolol Timolol Timolol 5 MG Oral Tablet bronchospasm Active eCW1 ([facility]) SMZ-TMP DS SMZ-TMP DS SMZ-TMP DS difficulty breathing, dizziness Act iram eCW1 ([facility]) Travatan Travatan Travatan pain in eye, heart racing Active eCW1 ([facility]) Levaquin Levaquin Levofloxacin 750 MG Oral Tablet [Levaquin] rash Active eCW1 ([facility]) Timolol Timolol Timolol 5 MG Oral Tablet bronchospasm Active eCW1 ([facility]) SMZ-TMP DS SMZ-TMP DS SMZ-TMP DS difficulty breathing, dizziness Act iram eCW1 ([facility]) Travatan Travatan Travatan pain in eye, heart racing Active eCW1 ([facility]) Levaquin Levaquin Levofloxacin 750 MG Oral Tablet [Levaquin] rash Active eCW1 ([facility]) Timolol Timolol Timolol 5 MG Oral Tablet bronchospasm Active eCW1 ([facility]) SMZ-TMP DS SMZ-TMP DS SMZ-TMP DS difficulty breathing, dizziness Act iram eCW1 ([facility]) Travatan Travatan Travatan pain in eye, heart racing Active eCW1 ([facility]) Levaquin Levaquin Levofloxacin 750 MG Oral Tablet [Levaquin] rash Active eCW1 ([facility]) Family History Family Member Name Family Member Gender Family Member Status Date o f Status Description Data Source(s) Unknown Unknown Problem MEDENT ([facility]) Unknown Male Problem MEDENT ([facility] ) Unknown Unknown Problem MEDENT ([facility]) Encounters Encounter Providers Location Date Indications Data Source(s ) Office Visit Attender: ANDREW Sheets/Jam/Nelson/Robert leung 04/10/2020 10:30:00 AM EST [facility] [address] 01/31/2020 12:00:00 AM EST eCW1 ([facility]) Office Visit Attender: Andrew Oates/Jam/Nelson/Dc cabello 01/30/2020 08:30:00 AM EST MEDENT ([facility] ) Outpatient<td ID="encounterTypeDescripti onID0">IOP CHECK WITH VISUAL FIELD 24- 2</td><td>Ronna Guerrero DO</td><td>Andrew Dubois MD [facility]</td><td>10/24/2019</td><td>6:49AM</td><td>7:56AM</td><td><content ID="encounterDiagnosisID0-0">Glaucoma Open-angle Primary</content></td> Attender: RONNA Blake MD [facility] 10/24/2019 06:49:00 AM EDT - 10/24/2019 07:56:00 AM EDT Glaucoma Open-angle Primary JALEN (Andrew Finley MD [facility]) Glaucoma Open-angle Primary Outpatient Attender: ANDREW Sheets/Jam/Nelson/Robert leung 10/08/2019 10:45:00 AM EDT MEDENT ([facility], ) Unknown [address] [facility] [address] 09/12/2019 12:00:00 AM EDT eCW1 ([facility]) Outpatient<td ID="encounterTypeDescripti onID2">GLAUCOMA EVALUATION</td><td>Ronna Guerrero DO</td><td>Andrew Dubois MD [facility]</td><td>09/03/2019</td><td>9:46AM</td><td>10:40AM</td><td><content ID="encounterDiagnosisID2-0">Borderline Glaucoma Ocular Hypertension Right Eye</content>, <content ID="encounterDiagnosisID2-1">Glaucoma Open-angle Primary Left Eye</content></td> Attender: RONNA Blake MD [facility] 09/03/2019 09:46:00 AM EDT - 09/03/2019 10:40:00 AM ED T Glaucoma Open-angle Primary Left EyeBorderline Glaucoma Ocular Hypertension Right EyeGlaucoma Open- angle Primary Left EyeBorderline Glaucoma Ocular Hypertension Right Eye JALEN (Andrew Finley MD [facility]) Glaucoma Open-angle Primary Left 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 Left 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 Outpatient<td ID="encounterTypeDescripti onID1">Argon ALT - Global 90 DAY POST OP</td><td>Ronna Guerrero DO</td><td>Andrew Dubois MD [facility]</td><td>09/21/2019</td><td>09/03/2019 8:00AM</td><td> 8:29AM</td><td><content ID="encounterDiagnosisID1-0">Borderline Glaucoma Ocular Hypertension Right Eye</content>, <content ID="encounterDiagnosisID1-1">Glaucoma Open-angle Primary Left Eye</content></td> Attender: RONNA Blake MD [facility] 09/03/2019 08:00:00 AM EDT - 09/21/2019 08:29:00 AM ED T Glaucoma Open-angle Primary Left EyeBorderline Glaucoma Ocular Hypertension Right EyeGlaucoma Open-angle Primary Left EyeBorderline Glaucoma Ocular Hypertension Right Eye JALEN (Andrew Finley MD [facility]) Glaucoma Open-angle Primary Left 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 [place] [address] [facility] [address] 08/16/2019 12:00:00 AM EDT eCW1 ([facility]) Unknown [address] [facility] [address] 08/06/2019 12:00:00 AM EDT eCW1 ([facility]) Outpatient Referrer: Andrew Leo DO 08/02/2019 04:57:00 AM EDT [facility] [address] [facility] [place] [address] 08/02/2019 12:00:00 AM EDT eCW1 ([facility]) Unknown [address] [facility] [place] [address] 08/02/2019 12:00:00 AM EDT eCW1 ([facility]) Outpatient<td ID="encounterTypeDescripti onID3">5 Month Follow-Up</td><td>Andrew Dubois MD, FACS</td><td>Andrew Dubois MD [facility]</td><td>08/01/2019</td><td>9:39AM</td><td>10:09AM</td><td><content ID="encounterDiagnosisID3-0">Borderline Glaucoma Ocular Hypertension Left Eye</content>, <content ID="encounterDiagnosisID3-1">Corneal Dystrophy Endothelial Fuchs'</content>, <content ID="encounterDiagnosisID3-2">Dry Eye Syndrome Both Eyes</content>, <content ID="encounterDiagnosisID3-3">Retinopathy Hypertensive Both Eyes</content>, <content ID="encounterDiagnosisID3-4">Corneal Dystrophy Anterior Both Eyes</content></td> Attender: Andrew Finley MD, FACS Andrew Dubois MD [facility] 08/01/2019 09:39:00 AM EDT - 08/01/2019 10:09:00 AM EDT Corneal Dystrophy Anterior Both EyesBord doug Glaucoma Ocular Hypertension Left EyeCorneal Dystrophy Anterior Both EyesBorderline Glaucoma Ocular Hypertension Left EyeRetinopathy Hypertensive Both EyesDry Eye Syndrome Both EyesCorneal Dystrophy Endothelial Fuchs'Retinopathy Hypertensive Both EyesDry Eye Syndrome Both EyesCorneal Dystrophy Endothelial Fuchs' JALEN (Andrew Finley MD [facility]) 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 Both Eyes Dry 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' Retinopathy Hypertensive Both Eyes Dry 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' [address] [address] 07/27/2019 12:00:00 AM EDT [facility] [address] [address] 07/26/2019 12:00:00 AM EDT [facility] [address] [address] 07/20/2019 12:00:00 AM EDT [facility]CW1 ([facility] [address] [address] 07/04/2019 12:00:00 AM EDT [facility] [address] [facility] [address] 07/04/2019 12:00:00 AM EDT eCW1 [facility] Outpatient Referrer: Andrew Leo DO 07/03/2019 04:41:00 AM EDT [facility] [address] [facility] [address] 07/03/2019 12:00:00 AM EDT eCW1 ([facility] Outpatient Referrer: Andrew Leo DO 06/30/2019 07:51:00 AM EDT [facility] [address] [place] [address], [place] [address] 06/29/2019 12:00:00 AM EDT eCW1 ([facility] [address] [place] [address], [place] [address] 06/28/2019 12:00:00 AM EDT eCW1 ([facility] [address] [place] [address], [place] [address] 06/20/2019 12:00:00 AM EDT eCW1 ([facility] [address] [place] [address], [place] [address] 05/01/2019 12:00:00 AM EST eCW1 ([facility] [address] [place] [address], [place] [address] 04/24/2019 12:00:00 AM EST eCW1 ([facility]) Outpatient Attender: Andrew Leo DO Main Office 04/23/2019 09:00:00 AM EST MEDENT ([facility] Outpatient Referrer: Andrew Leo DO 04/17/2019 03:29:00 PM EST [facility] Outpatient Referrer: Andrew Leo DO 04/17/2019 03:29:00 PM EST [facility] [address] [place] [address], [place] [address] 04/13/2019 12:00:00 AM EST eCW1 ([facility] [address] [address] 04/11/2019 12:00:00 AM EST eCW1 ([facility] [address] [address] 04/11/2019 12:00:00 AM EST eCW1 ([facility] [address] [address] 04/10/2019 12:00:00 AM EST eCW1 ([facility] [address] [address] 04/03/2019 12:00:00 AM EST eCW1 ([facility] [address] [address] 04/02/2019 12:00:00 AM EST eCW1 ([facility]) [address] [address] 03/28/2019 12:00:00 AM EST eCW1 ([facility]) Outpatient<td ID="encounterTypeDescripti onID6">VISUAL FIELD 24- 2</td><td></td><td>Andrew Dubois MD [facility]</td><td>03/26/2019</td><td>9:08AM</td><td>10:20AM</td><td></td> Andrew Dubois MD [facility] 03/26/2019 09:08:00 AM EST - 03/26/2019 10:20:00 AM EST JALEN (Andrew Finley MD [facility]) Outpatient<td ID="encounterTypeDescripti onID5">TESTING - VISUAL FIELD & OCT</td><td>Ronna Guerrero DO</td><td>Andrew Dubois MD [facility]</td><td>03/26/2019</td><td>9:08AM</td><td>10:21AM</td><td><content ID="encounterDiagnosisID5-0">Borderline Glaucoma Ocular Hypertension Left Eye</content></td> Attender: RONNA Blake MD [facility] 03/26/2019 09:08:00 AM EST - 03/26/2019 10:21:00 AM EST Borderline Glaucoma Ocular Hypertension Left EyeBorderline Glaucoma Ocular Hypertension Left Eye JALEN (Andrew Finley MD [facility]) 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 [address] [place] [address] [address] 03/22/2019 12:00:00 AM EST [facility]CW1 [facility] [address] [place] [address], [place] [address] 03/20/2019 12:00:00 AM EST eCW1 ([facility] Outpatient Referrer: Andrew Leo DO 03/18/2019 09:07:00 PM EST [facility] [address] [place] [address], [place] [address] 03/16/2019 12:00:00 AM EST [facility]CW1 [facility] [address] [facility] [address] 03/15/2019 12:00:00 AM EST eCW1 ([facility]) [facility] [address] [place] [address], [place] [address] 03/15/2019 12:00:00 AM EST eCW1 ([facility]) Outpatient<td ID="encounterTypeDescripti onID7">IOP CHECK</td><td>Ronna Guerrero DO</td><td>Andrew Dubois MD [facility]</td><td>03/14/2019</td><td>8:32AM</td><td>9:50AM</td><td><content ID="encounterDiagnosisID7-0">Borderline Glaucoma Ocular Hypertension Left Eye</content></td> Attender: RONNA Blake MD [facility] 03/14/2019 08:32:00 AM EST - 03/14/2019 09:50:00 AM EST Borderline Glaucoma Ocular Hypertension Left EyeBorderline Glaucoma Ocular Hypertension Left Eye JALEN (Andrew Finley MD [facility]) 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 [address] [place] [address] 03/14/2019 12:00:00 AM EST eCW1 ([facility]) [address] [place] [address] 03/12/2019 12:00:00 AM EST eCW1 ([facility]) [address] [place] [address] 03/09/2019 12:00:00 AM EST eCW1 ([facility]) Outpatient PORTER 02/24/2019 12:12:44 AM EST [facility] Outpatient [place] 02/23/2019 12:00:00 AM EST [facility] Medications Medication Brand Name Start Date Product Form Dose Route Admi nistrative Instructions Pharmacy Instructions Status Indications Reaction Description Data Source(s) pantoprazole 40 MG Delayed Release Oral Tablet Pantoprazole Sodium 10/08/2019 12:00:00 AM EDT ORAL active M HERNANDEZ ([facility] ) Sucralfate 1000 MG Oral Tablet Sucralfate 1 GM Sucralfate 1 GM 06/27/2019 12:00:00 AM EDT 1.0 {tablet_on_an_empty_stomach} active Sucralfate 1 GM eCW1 ([facility]) Albuterol 0.83 MG/ML Inhalant Solution Albuterol Sulfa te (2.5 MG/3ML) 0.083% Albuterol Sulfate (2.5 MG/3ML) 0.083% 06/27/2019 12:00:00 AM EDT 3.0 {ml} active Albuterol Sulfate (2.5 MG/3M L) 0.083% eCW1 ([facility]) fidaxomicin 200 MG Oral Tablet [Dificid] Dificid 200 MG Difi esmer 200 MG 06/27/2019 12:00:00 AM EDT 1.0 {tablet} active Dificid 200 MG eCW1 ([facility]) Sucralfate 1000 MG Oral Tablet Sucralfate 1 GM Sucralfate 1 GM 06/27/2019 12:00:00 AM EDT 1.0 {tablet_on_an_empty_stomach} active Sucralfate 1 GM eCW1 ([facility]) Albuterol 0.83 MG/ML Inhalant Solution Albuterol Sulfa te (2.5 MG/3ML) 0.083% Albuterol Sulfate (2.5 MG/3ML) 0.083% 06/27/2019 12:00:00 AM EDT 3.0 {ml} active Albuterol Sulfate (2.5 MG/3M L) 0.083% eCW1 ([facility]) fidaxomicin 200 MG Oral Tablet [Dificid] Dificid 200 MG Difi esmer 200 MG 06/27/2019 12:00:00 AM EDT active 1 tablet eCW1 ([facility]) Albuterol 0.83 MG/ML Inhalant Solution Albuterol Sulfa te (2.5 MG/3ML) 0.083% Albuterol Sulfate (2.5 MG/3ML) 0.083% 06/27/2019 12:00:00 AM EDT 3.0 {ml} active Albuterol Sulfate (2.5 MG/3M L) 0.083% eCW1 ([facility]) Albuterol 0.83 MG/ML Inhalant Solution Albuterol Sulfa te (2.5 MG/3ML) 0.083% Albuterol Sulfate (2.5 MG/3ML) 0.083% 06/27/2019 12:00:00 AM EDT 3.0 {ml} active Albuterol Sulfate (2.5 MG/3M L) 0.083% eCW1 ([facility]) Sucralfate 1000 MG Oral Tablet Sucralfate 1 GM Sucralfate 1 GM 06/27/2019 12:00:00 AM EDT 1.0 {tablet_on_an_empty_stomach} active Sucralfate 1 GM eCW1 ([facility]) fidaxomicin 200 MG Oral Tablet [Dificid] Dificid 200 MG Difi esmer 200 MG 06/27/2019 12:00:00 AM EDT 1.0 {tablet} suspended Dificid 200 MG eCW1 ([facility]) Albuterol 0.83 MG/ML Inhalant Solution Albuterol Sulfa te (2.5 MG/3ML) 0.083% Albuterol Sulfate (2.5 MG/3ML) 0.083% 06/27/2019 12:00:00 AM EDT active 3 ml eCW1 ([facility]) fidaxomicin 200 MG Oral Tablet [Dificid] Dificid 200 MG Difi esmer 200 MG 06/27/2019 12:00:00 AM EDT 1.0 {tablet} suspended Dificid 200 MG eCW1 ([facility]) Albuterol 0.83 MG/ML Inhalant Solution Albuterol Sulfa te (2.5 MG/3ML) 0.083% Albuterol Sulfate (2.5 MG/3ML) 0.083% 06/27/2019 12:00:00 AM EDT 3.0 {ml} active Albuterol Sulfate (2.5 MG/3M L) 0.083% eCW1 ([facility]) Sucralfate 1000 MG Oral Tablet Sucralfate 1 GM Sucralfate 1 GM 06/27/2019 12:00:00 AM EDT 1.0 {tablet_on_an_empty_stomach} active Sucralfate 1 GM eCW1 ([facility]) Sucralfate 1000 MG Oral Tablet Sucralfate 1 GM Sucralfate 1 GM 06/27/2019 12:00:00 AM EDT active 1 tablet on an empty stomach eCW1 ([facility]) fidaxomicin 200 MG Oral Tablet [Dificid] Dificid 200 MG Difi esmer 200 MG 06/27/2019 12:00:00 AM EDT 1.0 {tablet} active Dificid 200 MG eCW1 ([facility]) fidaxomicin 200 MG Oral Tablet [Dificid] Dificid 200 MG Difi esmer 200 MG 06/27/2019 12:00:00 AM EDT active 1 tablet eCW1 ([facility]) Albuterol 0.83 MG/ML Inhalant Solution Albuterol Sulfa te (2.5 MG/3ML) 0.083% Albuterol Sulfate (2.5 MG/3ML) 0.083% 06/27/2019 12:00:00 AM EDT 3.0 {ml} active Albuterol Sulfate (2.5 MG/3M L) 0.083% eCW1 ([facility]) Sucralfate 1000 MG Oral Tablet Sucralfate 1 GM Sucralfate 1 GM 06/27/2019 12:00:00 AM EDT 1.0 {tablet_on_an_empty_stomach} active Sucralfate 1 GM eCW1 ([facility]) Sucralfate 1000 MG Oral Tablet Sucralfate 1 GM Sucralfate 1 GM 06/27/2019 12:00:00 AM EDT active 1 tablet on an empty stomach eCW1 ([facility]) fidaxomicin 200 MG Oral Tablet [Dificid] Dificid 200 MG Difi esmer 200 MG 06/27/2019 12:00:00 AM EDT 1.0 {tablet} active Dificid 200 MG eCW1 ([facility]) Albuterol 0.83 MG/ML Inhalant Solution Albuterol Sulfa te (2.5 MG/3ML) 0.083% Albuterol Sulfate (2.5 MG/3ML) 0.083% 06/27/2019 12:00:00 AM EDT active 3 ml eCW1 ([facility]) Pilocarpine Hydrochloride 10 MG/ML Ophthalmic Solution Pilocarpine HCl 1 % Pilocarpine HCl 1 % 03/08/2019 12:00:00 AM EST active Pilocarpine HCl 1 % eCW1 ([facility]) Pilocarpine Hydrochloride 10 MG/ML Ophthalmic Solution Pilocarpine HCl 1 % Pilocarpine HCl 1 % 03/08/2019 12:00:00 AM EST active Pilocarpine HCl 1 % eCW1 ([facility]) Pilocarpine Hydrochloride 10 MG/ML Ophthalmic Solution Pilocarpine HCl 1 % Pilocarpine HCl 1 % 03/08/2019 12:00:00 AM EST active 1 drop into the left eye eCW1 ([facility]) Sucralfate 100 MG/ML Oral Suspension Sucralfate 1 GM/10ML Wall cralfate 1 GM/10ML 03/08/2019 12:00:00 AM EST active 10 ml on an empty stomach eCW1 ([facility]) Sucralfate 100 MG/ML Oral Suspension Sucralfate 1 GM/10ML Wall cralfate 1 GM/10ML 03/08/2019 12:00:00 AM EST active 10 ml on an empty stomach eCW1 ([facility]) Pilocarpine Hydrochloride 10 MG/ML Ophthalmic Solution Pilocarpine HCl 1 % Pilocarpine HCl 1 % 03/08/2019 12:00:00 AM EST active Pilocarpine HCl 1 % eCW1 ([facility]) Pilocarpine Hydrochloride 10 MG/ML Ophthalmic Solution Pilocarpine HCl 1 % Pilocarpine HCl 1 % 03/08/2019 12:00:00 AM EST active Pilocarpine HCl 1 % eCW1 ([facility]) Sucralfate 100 MG/ML Oral Suspension Sucralfate 1 GM/10ML Wall cralfate 1 GM/10ML 03/08/2019 12:00:00 AM EST suspended 10 ml on an empty stomach eCW1 ([facility]) Pilocarpine Hydrochloride 10 MG/ML Ophthalmic Solution Pilocarpine HCl 1 % Pilocarpine HCl 1 % 03/08/2019 12:00:00 AM EST active 1 drop into the left eye eCW1 ([facility]) Pilocarpine Hydrochloride 10 MG/ML Ophthalmic Solution Pilocarpine HCl 1 % Pilocarpine HCl 1 % 03/08/2019 12:00:00 AM EST active Pilocarpine HCl 1 % eCW1 ([facility]) Pilocarpine Hydrochloride 10 MG/ML Ophthalmic Solution Pilocarpine HCl 1 % Pilocarpine HCl 1 % 03/08/2019 12:00:00 AM EST active 1 drop into the left eye eCW1 ([facility]) Pilocarpine Hydrochloride 10 MG/ML Ophthalmic Solution Pilocarpine HCl 1 % Pilocarpine HCl 1 % 03/08/2019 12:00:00 AM EST active Pilocarpine HCl 1 % eCW1 ([facility]) Pilocarpine Hydrochloride 10 MG/ML Ophthalmic Solution Pilocarpine HCl 1 % Pilocarpine HCl 1 % 03/08/2019 12:00:00 AM EST active 1 drop into the left eye eCW1 ([facility]) Pilocarpine Hydrochloride 10 MG/ML Ophthalmic Solution Pilocarpine HCl 1 % Pilocarpine HCl 1 % 03/08/2019 12:00:00 AM EST active 1 drop into the left eye eCW1 ([facility]) Pilocarpine Hydrochloride 10 MG/ML Ophthalmic Solution Pilocarpine HCl 1 % Pilocarpine HCl 1 % 03/08/2019 12:00:00 AM EST active 1 drop into the left eye eCW1 ([facility]) Insurance Providers Payer name Policy type / Coverage type Policy ID Covered alliance party ID Covered alliance party's relationship to machado Policy [employer] Plan Information [employer]ARE [id number] SP [id number] WELLCARE O [id number] S [id number] MEDICARE [id number] SP [id number] AETNA MEDICARE [id number] SP [id number] AETNA MEDICARE [id number] SP [id number] MEDICARE [id number] A AETNA MEDICARE O [id number] S [id number] AETNA MEDICARE [id number] SP [id number] AETNA MEDICARE [id number] SP [id number] MEDICARE COMPLETE [id number] SP [id number] MEDICARE COMPLETE [id number] SP [id number] MEDICARE COMPLETE [id number] SP [id number] MEDICARE COMPLETE [id number] SP [id number] [facility] [id number] SP [id number] TODAYS OPTIONSDO NOT USE [id number] SP [id number] [place] 306/806 [id number] HU2 [id number] [place] 306/806 [id number] HU2 [id number] [place] 306/806 [id number] SP [id number] AETNA MEDICARE [id number] Janet [id number] AETNA MEDICARE O [id number] S [id number] ANSI-Medicare Part B [id number] ANSI-Medicare Part B [id number] ANSI-Medicare Part B [id number] AETNA MEDICARE [id number] SP [id number] ANSI-Medicare Part B [id number] ANSI-Medicare Part B [id number] ANSI-Medicare Part B [id number] MEDICARE [id number] SP [id number] ANSI-Medicare Part B [id number] ANSI-Medicare Part B [id number] ANSI-Medicare Part B [id number] [place] Medigap Part B [id number] Family Dep endent [id number] Todays Options Commercial [id number] Self [id number] [facility] [employer] [id number] Self [id number] Aetna Medicare Commercial [id number] Self [id number] AETNA MEDICARE [id number] SP [id number] AETNA MEDICARE O [id number] S [id number] Aetna Medicare Commercial [id number] Self [id number] [place] [facility] [id number] Family Dep endent [id number] Tod[employer] Options Commercial [id number] Self [id number] ANSI-Medicare Part B [id number] ANSI-Medicare Part B [id number] ANSI-Medicare Part B [id number] Aetna ([facility]) Medigap Part B [id number] Self MEB [id number] [employer]ig [employer] Workers Compensation [id number] Self [id number] Medicare Dme Supplies Medigap Part B [id number] Self [id number] [place] Primary [id number] Self [id number] Aetna (MCR) Medigap Part B [id number] Self MEB [id number] [employer] Workers Compensation [id number] Self [id number] Medicare Dme Supplies Medigap Part B [id number] Self [id number] [place] Primary [id number] Self [id number] Aetna (MCR) Medigap Part B [id number] Self MEB [id number] [employer] Workers Compensation [id number] Self [id number] Medicare Dme Supplies Medigap Part B [id number] Self [id number] [place] Primary [id number] Self [id number] ANSI-Medicare Part B [id number] ANSI-Medicare Part B [id number] ANSI-Medicare Part B [id number] AETNA MEDICARE [id number] SP [id number] [employer] Workers Compensation [id number] Self [id number] Aetna (pr) Medigap Part B [id number] Self [id number] Medicare Dme Supplies Medigap Part B [id number] Self [id number] [place] Primary [id number] Self [id number] MEDICARE [id number] SP [id number] A [place] Medigap Part B [id number] Family Dep endent [id number] Todays Options Commercial [id number] Self [id number] [facility] Commercial [id number] Self [id number] [facility] O [id number] S [id number] MEDICARE COMPLETE-UHC P [id number] S [id number] [facility] [id number] SP [id number] Problems, Conditions, and Diagnoses Code Display Name Description Problem Type Effective Dates Data Source(s) 323248638 Hypoxemia Hypoxemia Problem 01/30/2020 12:00:00 AM JORGE BURK ([facility], ) H40.1133 Glaucoma Open-angle Primary Glaucoma Open-angle Primar y Problem 10/24/2019 12:00:00 AM EDT JALEN (Andrew iFnley MD [facility]) 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 Problem 09/03/2019 12:00:00 AM EDT DEBBI BARILLAS (Andrew Finley MD [facility]) H40.1121 Glaucoma Open-angle Primary Left Eye Gla ucoma Open-angle Primary Left Eye Problem 09/03/2019 12:00:00 AM EDT JALEN (Haroldo Finley MD [facility]) [id number] 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 Problem 09/03/2019 12:00:00 AM EDT DEBBI BARILLAS (Andrew Finley MD [facility]) H40.1121 Glaucoma Open-angle Primary Left Eye Gla ucoma Open-angle Primary Left Eye Problem 09/03/2019 12:00:00 AM EDT JALEN (Haroldo Finley MD [facility]) I50.32 [id number] Chronic diastolic congestive heart failur e Problem 08/02/2019 12:00:00 AM EDT eCW1 ([facility]) K74.60 [id number] Unspecified cirrhosis of liver Problem 08/02/2019 12:00:00 AM EDT eCW1 ([facility]) R18.8 [id number] Other ascites Problem 08/02/2019 12:00:00 AM EDT eCW1 ([facility]) 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 Cor daniel Dystrophy Anterior Both Eyes Problem 08/01/2019 12:00:00 AM EDT JALEN (Haroldo Finley MD [facility]) [id number] Corneal Dystrophy Anterior Both Eyes Cor daniel Dystrophy Anterior Both Eyes Problem 08/01/2019 12:00:00 AM EDT JALEN (Haroldo Finley MD [facility]) D50.0 [id number] Anemia due to GI blood loss Problem 07/04/19 12:00:00 AM EDT eCW1 ([facility]) D50.0 [id number] Anemia due to GI blood loss Problem 07/04/19 12:00:00 AM EDT eCW1 ([facility]) 193624954 Hypoxemia Hypoxemia Problem 04/23/2019 12:00:00 AM ES T MEDENT ([facility] 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 09/21/2019 12:00:00 AM EDT JALEN (Andrew Finley MD [facility]) Intermediate Eye Exam Established Patient Intermediate Eye Exam Established Patient 09/21/2019 12:00:00 AM EDT JALEN (Harolod Finley MD [facility]) Endoscopy Upper GI Biopsy 09/20/2019 12:00:00 AM EDT MEDENT ([facility]) Intermediate Eye Exam Established Patient Intermediate Eye Exam Established Patient 09/03/2019 12:00:00 AM EDT JALEN (Haroldo Finley MD [facility]) Intermediate Eye Exam Established Patient Intermediate Eye Exam Established Patient 08/01/2019 12:00:00 AM EDT JALEN (Haroldo Finley MD [facility]) Transitional Care NO CHARGE Visit 07/26/2019 12:00:00 AM EDT eCW1 ([facility]) TRANS CARE MGMT 7 DAY DISCH 07/04/2019 12:00:00 AM EDT eCW1 ([facility]) Office Visit, Est Pt., Level 2 FC 07/04/2019 12:00:00 AM EDT eCW1 ([facility]) Office Visit, Est Pt., Level 4 PC 05/01/2019 12:00:00 AM EST eCW1 ([facility]) RESPIRATORY FLOW VOLUME LOOP 04/23/2019 12:00:00 AM ES T MEDENT ([facility] Visual Field (WAIVER OF LIABILITY ON FILE (ABN)) Visua l Field (WAIVER OF LIABILITY ON FILE (ABN)) 03/26/2019 12:00:00 AM EST JALEN (Andrew Finley MD [facility]) Scodi, optic nerve with interpretation a nd report (WAIVER OF LIABILITY ON FILE (ABN)) Scodi, optic nerve with interpretation a nd report (WAIVER OF LIABILITY ON FILE (ABN)) 03/26/2019 12:00:00 AM EST JALEN (Haroldo Finley MD [facility]) Corneal Pachymetry (WAIVER OF LIABILITY ON FILE (ABN)) Corneal Pachymetry (WAIVER OF LIABILITY ON FILE (ABN)) 03/26/2019 12:00:00 AM EST JALEN (Andrew Finley MD [facility]) Intermediate Eye Exam Established Patient Intermediate Eye Exam Established Patient 03/14/2019 12:00:00 AM EST JALEN (Haroldo Finley MD [facility]) Results ID Date Data Source [id number] 01/30/2020 09:04:00 AM EST MEDENT ([facility], ) Name Value Range Interpretation Code Description Data Cora rce(s) Supporting Document(s) PDFReport Laboratory test result MEDENT ([facility], ) FVC-Pre 1.32 L MEDENT ([facility], ) FVC-Pred 2.02 L MEDENT ([facility]) FVC-LLN 1.43 L MEDENT ([facility]) FVC-%Pred-Pre 65 L MEDENT ([facility]) Fev1-Pred 1.48 L MEDENT ([facility]) Fev1-LLN 0.99 L MEDENT ([facility]) Fev1-Pre 1.03 L MED[facility] ([facility]) Fev1-%Pred-Pre 69 L MEDENT ([facility]) Fev6-Pre 1.32 L MEDENT ([facility]) Fev6-%Pred-Pre 69 L MEDENT ([facility]) Fev6-Pred 1.90 L MED[facility] ([facility]) Ppx2gnu-Hoao 74 % MEDENT ([facility]) Fev6-LLN 1.32 L MEDENT ([facility]) Ykq2izx-Url 78 % MEDENT ([facility]) Ajh6qke-YQN 64 % MED[facility] ([facility]) Huf8lji-%Pred-Pre 105 % MEDENT ([facility]) Prb6jkx-Bwnn 94 % [facility] ([facility]) Zaj3hzb-Ltb 100 % MED[facility] ([facility]) Fig7qzr-%Pred-Pre 106 % [facility] ([facility]) FEFMax-Pred 4.05 L/E/sec MEDENT ([facility]) FEFMax-Pre 2.62 L/E/sec MEDENT ([facility]) FEFMax-LLN 2.60 L/E/sec MEDENT ([facility]) FEFMax-%Pred-Pre 64 L/E/sec MED[facility] ([facility]) Fvf5791-%Pred-Pre 71 L/E/sec MEDENT ([facility]) Ylv9158-Ynsj 1.13 L/E/sec MEDENT ([facility]) Edb4519-Jgc 0.81 L/E/sec MEDENT ([facility]) ExpTime-Pre 4.53 sec MEDENT ([facility]) Sek3awy8-Vmgx 78 % MED[facility] ([facility]) Fyy8020-FJI 0.08 L/E/sec MEDENT ([facility]) Ird9zag3-Inp 78 % MED[facility] ([facility]) Dli1zmp6-%Pred-Pre 99 % MEDENT ([facility]) Huv4zwm2-HYN 69 % MED[facility] ([facility]) ID Date Data Source [id number] 09/20/2019 12:36:00 PM EDT MEDENT ([facility]) Name Value Range Interpretation Code Description Data Cora rce(s) Supporting Document(s) Surgical pathology study Laboratory test result MEDENT ([facility]) FINAL DIAGNOSIS Gastric biopsy: Chronic gastritis with mild architectural distortion, no acute inflammation or features of H. pylori are noted. 10/18/20191548 CLINICAL DIAGNOSIS Gastric ulcer follow up 10/18/20191548 GROSS DIAGNOSIS Received in formalin, labeled "gastric biopsy" are two fragments of tissue, 0.3 and 0.4 cm. All in one. 10/18/20191548 Signed Eli Hi M.D. 10/18/20191548 ID Date Data Source [id number] 09/15/2019 12:00:00 AM EDT [facility] Name Value Range Interpretation Code Description Data Cora rce(s) Supporting Document(s) SARS coronavirus 2 RNA [facility] This lab was ordered by [facility] and reported by [facility]. ID Date Data Source [id number] 08/29/2019 12:18:00 PM EDT [facility] Name Value Range Interpretation Code Description Data Cora rce(s) Supporting Document(s) White Blood Count 9.5 10 4.0-10.0 Normal (applies to non-numeri c results) MEDENT ([facility]) Hematocrit 32.8 % 36.0-47.0 Below low normal [facility] ( [facility]) Hemoglobin 10.0 g/dL 12.0-15.5 Below low normal [facility] ( [facility]) Red Blood Count 3.54 10 4.00-5.40 Below low normal [facility] ([facility]) Mean Corpuscular HGB Conc 30.5 g/dL 32.0-36.5 Below low normal [facility] ([facility]) Mean Corpuscular Volume 92.7 fl 80.0-96.0 Normal ( applies to non-numeric results) [facility] ([facility]) Mean Corpuscular Hemoglobin 28.2 pg 27.0-33.0 Norm al (applies to non-numeric results) [facility] ([facility]) Platelet Count, Automated 224 10 150-450 Normal (applies to non-numeric results) [facility] ([facility]) Red Cell Distribution Width 14.4 % 11.5-14.5 Norm al (applies to non-numeric results) [facility] ([facility]) Neutrophils % 62.0 % 36.0-66.0 Normal (applies to non-numeric re sults) [facility] ([facility]) Baso % 0.3 % 0.0-1.0 Normal (applies to non-numeric resul ts) [facility]) Lymph % 23.8 % 24.0-44.0 Below low normal [facility] ( [facility]) Oliver % 9.7 % 0.0-5.0 Above high normal [facility] ([facility]) Eos % 3.8 % 0.0-3.0 Above high normal [facility] ([facility]) Immature Granulocyte % 0.4 % 0-3.0 Normal (applies to non-n umeric results) [facility] ([facility]) Neutrophils # 5.9 10 1.5-8.5 Normal (applies to non-numeric re sults) [facility] ([facility]) Nucleated Red Blood Cell % 0.0 % 0-0 Normal (applies to n on-numeric results) [facility] ([facility]) Oliver # 0.9 10 0.0-0.8 Above high normal [facility] ([facility]) Lymph # 2.3 10 1.5-5.0 Normal (applies to non-numeric resul ts) [facility]) Eos # 0.4 10 0.0-0.5 Normal (applies to non-numeric resul ts) [facility] ([facility]) Baso # 0.0 10 0.0-0.2 Normal (applies to non-numeric resul ts) [facility]) 09/10/19 (TueSep 09) 02:48 PM ANDREW OSBORN [facility]. ID Date Data Source [id number] 08/29/2019 12:18:00 PM EDT [facility] ([facility]) Name Value Range Interpretation Code Description Data Cora rce(s) Supporting Document(s) Cytoplasmic Neutrop AB Anca-C Laboratory test result Normal (applies to non- numeric results) [facility] ([facility]) Anca-Atypical Laboratory test result Normal (applies t o non-numeric results) [facility] ([facility]) The atypical pANCA pattern has been obse rved in a significant percentage of patients with ulcerative colitis, primary sclerosing cholangitis and autoimmune hepatitis. Perinuclear AB Anca-P Laboratory test result Nor mal (applies to non-numeric results) [facility] ([facility]) The presence of positive fluorescence ex hibiting P-ANCA or C-ANCA patterns alone is not specific for the diagnosis of Ashanti's Granulomatosis (WG) or microscopic polyangiitis. Decisions about treatment should not be based solely on ANCA IFA results. The International ANCA Group Consensus recommends follow up testing of positive sera with both ND- 3 and MPO-ANCA enzyme immunoassays. As m any as 5% serum samples are positive only by EIA. Ref. AM J Clin Pathol 1999;111:507-513. ID Date Data Source [id number] 08/29/2019 12:18:00 PM EDT [facility] ([facility]) Name Value Range Interpretation Code Description Data Cora rce(s) Supporting Document(s) Prothrombin Time 14.7 s 11.8-14.0 Above high normal [facility] Inr 1.18 Normal (applies to non-numeric resul ts) [facility] ([facility]) THERAPUTIC HUMAN INR VALUES INDICATIONS NORMAL RANGES PROPHYLAXIS/TREATMENT OF: VENOUS THROMBOSIS 2.0-3.0 PULMONARY EMBOLISM 2.0-3.0 PREVENTION OF SYSTEMIC EMBOLISM FROM: TISSUE HEART VALVES 2.0-3.0 ACUTE MYOCARDIAL INFARCTION 2.0-3.0 VALVULAR HEART DISEASE 2.0-3.0 ATRIAL FIBRILLATION 2.0-3.0 MECHANICAL VALVES(HIGH RISK) 2.5-3.5 RECURRENT MYOCARDIAL INFARCTION 2.5-3.5 ID Date Data Source [id number] 08/29/2019 12:18:00 PM EDT [facility] ([facility]) Name Value Range Interpretation Code Description Data Cora rce(s) Supporting Document(s) Gamma glutamyl transferase [Enzymatic activity/volume] in Serum or Plasma 29 U/L 5-55 Normal (applies to non-numeric results) [facility]) ID Date Data Source [id number] 08/29/2019 12:18:00 PM EDT [facility] ([facility]) Name Value Range Interpretation Code Description Data Cora rce(s) Supporting Document(s) Ast/Sgot 31 U/L 7-37 Normal (applies to non-numeric resul ts) [facility] ([facility]) Alkaline Phosphatase 143 U/L 45-117 Above high normal [facility] ([facility]) Alt/SGPT 23 U/L 12-78 Normal (applies to non-numeric resul ts) [facility] Bilirubin,Total 0.4 mg/dL 0.2-1.0 Normal (applies to non-numeric results) [facility] ([facility]) Total Protein 7.8 GM/DL 6.4-8.2 Normal (applies to non-numeric re sults) [facility]) Albumin 2.8 GM/DL 3.2-5.2 Below low normal [facility] ( [facility]) Bilirubin,Direct 0.2 mg/dL 0.0-0.2 Normal (applies to non-numeric results) [facility] ([facility]) Albumin/Globulin Ratio 0.6 1.2-2.2 Below low normal [facility] ([facility]) ID Date Data Source [id number] [facility]/29[facility]2019 [facility] Name Value Range Interpretation Code Description Data Cora rce(s) Supporting Document(s) IgA [Mass/volume] in Serum or Plasma 577.0 mg/dL 70-400 Above hig h normal [facility] ([facility]) Tissue transglutaminase IgA Ab [Units/volume] in Serum Labor atory test result 0-3 Normal (applies to non-numeric results) [facility]) Negative 0 - 3 Weak Positive 4 - 10 Positive >10 . Tissue Transglutaminase (tTG) has been identified as the endomysial antigen. Studies have demonstr- ated that endomysial IgA antibodies have over 99% specificity for gluten sensitive enteropathy. Liver-Kidney Microsomal Zulema Laboratory test result 0.0-20.0 Normal (applies to non-numeric results) [facility] ([facility]) Negative 0.0 - 20.0 Equivocal 20.1 - 24.9 Positive >24.9 . LKM type 1 antibodies are detected in patients with autoimmune hepatitis type 2 and in up to 8% of patients with chronic HCV infection. ID Date Data Source [id number] 08/29/2019 12:18:00 PM EDT [facility]) Name Value Range Interpretation Code Description Data Cora rce(s) Supporting Document(s) Hepatitis C Virus Z[place]ma Index 0.2 INDEX Normal (appli es to non-numeric results) [facility]) Negative Not infected with HCV, unless recent infection is suspected or other evidence exists to indicate HCV infection. Hepatitis B Surface Antigen Laboratory test result Normal (applies to non- numeric results) [facility] ([facility]) Hepatitis A Antibody Igm Laboratory test result Normal (applies to non-numeric results) [facility] ([facility]) Hepatitis B Core Antibody Igm Laboratory test result Normal (applies to non- numeric results) [facility]) ID Date Data Source [id number] 08/29/2019 12:18:00 PM EDT [facility]) Name Value Range Interpretation Code Description Data Cora rce(s) Supporting Document(s) Iron (Fe) 46 ug/dL 50-170 Below low normal [facility] ( [facility]) Total Iron Binding Capacity 241 ug/dL 250-450 Below low normal [facility] ([facility]) Percent Saturation 19.1 % 13.2-45.0 Normal (applies to non-numer ic results) [facility]) ID Date Data Source [id number] 08/29/2019 12:18:00 PM EDT [facility] ([facility]) Name Value Range Interpretation Code Description Data Cora rce(s) Supporting Document(s) Mitochondria Ab [Units/volume] in Serum Laboratory test result 0 .0-20.0 Normal (applies to non-numeric results) [facility]) Negative 0.0 - 20.0 Equivocal 20.1 - 24.9 Positive >24.9 . Mitochondrial (M2) Antibodies are found in 90-96% of patients with primary biliary cirrhosis. ID Date Data Source [id number] 08/29/2019 12:18:00 PM EDT [facility]) Name Value Range Interpretation Code Description Data Cora rce(s) Supporting Document(s) Antinuclear Antibodies Direct Laboratory test result Normal (applies to non- numeric results) [facility]) Performed at: - [facility] [id number] [employer]: Estefany Brown MD, Phone: [phone] Performed at: - [facility] [id number] [employer]: Heena Siu MD, Phone: [phone] ID Date Data Source Comprehensive Metabolic Profile (CMP) 04/10/2019 12:00:00 AM EST eCW1 ([facility]) Name Value Range Interpretation Code Description Data Cora rce(s) Supporting Document(s) 101 70-100 GLUCOSE, FASTING eCW1 ([facility]) 34.1 >39 GLOMERULAR FILTRATION RATE eCW 1 ([facility]) 15 7-18 BLOOD UREA NITROGEN eCW1 ([facility]) 1.56 0.55-1.30 CREATININE FOR GFR eCW1 ([facility]) 107 98-107 CHLORIDE LEVEL eCW1 ([facility]) 4.0 3.5-5.1 POTASSIUM SERUM eCW1 ([facility]) 144 136-145 SODIUM LEVEL eCW1 ([facility]) 31 21-32 CARBON DIOXIDE LEVEL eCW1 ([facility]) 9.8 8.8-10.2 CALCIUM LEVEL eCW1 ([facility]) 28 12-78 ALT/SGPT eCW1 ([facility]) 37 7-37 AST/SGOT eCW1 ([facility]) 138 45-117 ALKALINE PHOSPHATASE eCW1 ([facility]) 7.6 6.4-8.2 TOTAL PROTEIN eCW1 ([facility]) 0.5 0.2-1.0 BILIRUBIN,TOTAL eCW1 ([facility]) 3.0 3.2-5.2 ALBUMIN eCW1 ([facility]) 0.65 1.00-1.93 ALBUMIN/GLOBULIN RATIO eCW1 ([facility]) ID Date Data Source CBC with Differential 04/10/2019 12:00:00 AM EST eCW1 ([facility]) Name Value Range Interpretation Code Description Data Cora rce(s) Supporting Document(s) 8.1 4.0-10.0 WHITE BLOOD COUNT eCW1 ([facility]) 31.6 36.0-47.0 HEMATOCRIT eCW1 ([facility]) 3.35 4.00-5.40 RED BLOOD COUNT eCW1 ([facility]) 9.8 12.0-15.5 HEMOGLOBIN eCW1 ([facility]) 94.3 80.0-96.0 MEAN CORPUSCULAR VOLUME e CW1 ([facility]) 31.0 32.0-36.5 MEAN CORPUSCULAR HGB CONC eCW1 ([facility]) 29.3 27.0-33.0 MEAN CORPUSCULAR HEMOGLOB IN eCW1 ([facility]) 60.3 36.0-66.0 NEUTROPHILS % eCW1 ([facility]) 153 150-450 PLATELET COUNT, AUTOMATED eCW1 ([facility]) 15.1 11.5-14.5 RED CELL DISTRIBUTION WID TH eCW1 ([facility]) 5.6 0.0-3.0 EOS % eCW1 ([facility]) 0.5 0.0-1.0 BASO % eCW1 ([facility]) 21.3 24.0-44.0 LYMPH % eCW1 ([facility]) 11.8 0.0-5.0 MONO % eCW1 ([facility]) 1.7 1.5-5.0 LYMPH # eCW1 ([facility]) 1.0 0.0-0.8 MONO # [facility]CW1 [facility] [facility]) 4.9 1.5-8.5 NEUTROPHILS # eCW1 ([facility]) 0.0 0.0-0.2 BASO # eCW1 ([facility]) 0.5 0.0-0.5 EOS # eCW1 ([facility]) ID Date Data Source RENAL PROFILE 03/16/2019 12:00:00 AM EST eCW1 ([facility]) Name Value Range Interpretation Code Description Data Cora rce(s) Supporting Document(s) 11 7-18 BLOOD UREA NITROGEN eCW1 ([facility]) 84 70-100 GLUCOSE, FASTING eCW1 ([facility]) 45.3 >39 GLOMERULAR FILTRATION RATE eCW 1 ([facility]) 1.22 0.55-1.30 CREATININE FOR GFR eCW1 ([facility]) 144 136-145 SODIUM LEVEL eCW1 ([facility]) 3.8 3.5-5.1 POTASSIUM SERUM eCW1 ([facility]) 30 21-32 CARBON DIOXIDE LEVEL eCW1 ([facility]) 108 98-107 CHLORIDE LEVEL eCW1 ([facility]) 2.5 3.2-5.2 ALBUMIN eCW1 ([facility]) 8.6 8.8-10.2 CALCIUM LEVEL eCW1 ([facility]) 3.2 2.5-4.9 PHOSPHORUS LEVEL eCW1 ([facility]) ID Date Data Source VITAMIN B12 LEVEL 03/16/2019 12:00:00 AM EST eCW1 ([facility]) Name Value Range Interpretation Code Description Data Cora rce(s) Supporting Document(s) 1882 680-185 VITAMIN B12 LEVEL eCW1 ([facility]) ID Date Data Source SERUM PROTEIN ELECTROPHORESIS 03/16/2019 12:00:00 AM EST eCW 1 ([facility]) Name Value Range Interpretation Code Description Data Cora rce(s) Supporting Document(s) 6.2 6.4-8.2 TOTAL PROTEIN eCW1 ([facility]) ID Date Data Source Reticulocyte Count Sysmex 03/16/2019 12:00:00 AM EST eCW1 ([facility]) Name Value Range Interpretation Code Description Data Cora rce(s) Supporting Document(s) 0.9 0.5-1.5 RETICULOCYTE % eCW1 ([facility]) ID Date Data Source H PYLORI QUALITATIVE IGG 03/16/2019 12:00:00 AM EST eCW1 ([facility]) Name Value Range Interpretation Code Description Data Cora rce(s) Supporting Document(s) NEGATIVE NEGATIVE H PYLORI QUALITATIVE IgG eCW1 ([facility]) ID Date Data Source [id number] 02/24/2019 12:06:37 AM EST [facility] Name Value Range Interpretation Code Description Data Cora rce(s) Supporting Document(s) &PDF [facility] EUMRYy6qAcMGHwCn76/BUWnsPICgm5SfHJasLCk1JYcnYNBnY3WywGedVPJBK5zETbsLGJATAsRpTLQH pL0 [file] 3LxUrKzTHj/xbZkJE2/Wall+7Q+7RlAdQuxFOK//AAoIVtvD5TSwSFrNcunHu33JZ9ziLX83N6/mTX1KZV gaKi/NrEwB+OZg4JF8U/q+p6hXNtsxZp23p+UY5vVq0tVmLf2CgM8f+K4mh+WMnvkI+CY+dnSpy+s/vp organizational development k/wgfWNbJWlq6gG8m0gdCu2MJDEUhiekv4YcE2sTfd Ally/RZtik4Uh/Ea35yZIlE/FRDdgR1W8SGSl9MJKghaO7CA/UE4iCdQCnRk0646GEgRT0lLVhzbFdvn6 [file] ICAgICAgICAgICAgICAgICAgICAgICAgICAgICAgICAgICAgICAgICAgICAgICAgICAgICAgICAgICAg ADQzZIWaSBZdQC0VWLPtMBLmRTCxBJKeJTVzQSSaULQkSUQhGCVeKDVuXZXwIPRvIOZkPLLdIDKiWTAg ICAgICAgICAgICAgICAgICAgICAgICAgICAgICAgIC CpOFTsGXEmJHQoGNJlVWQoLNBfDY6QGHVeYDKhQJXrQQCvROXjAYJoSUNzWTAlMDOoAQCzJBBeOOFhTB AgICAgICAgICAgICAgICAgICAgICAgICAgICAgICAgICAgICAgICAgICAgICAgICAgICAgICAgICAgIC XhAM5XNYPyDNUxLDOzBUXwIHYhSBZiBAUbXBPzJOBx ICAgICAgICAgICAgICAgICAgICAgICAgICAgICAgICAgICAgICAgICAgICAgICAgICAgICAgICAgICAg WNSpRZRpVZIvQXDvHQ6QUFGhPPVpPYNaKAHwIHUtDTQyAJNdGJHqSJSlPTQoUBJbKYOpPMEfHOOgQSDv ICAgICAgICAgICAgICAgICAgICAgICAgICAgICAgIC KeCJPmQZFwNZHuBNQrYOSyJVPjRBCrQV3MIOSdWFOnKQDdKQCcSEBgDJMsPQTtNOXpNSWzHYQnWROaXD AgICAgICAgICAgICAgICAgICAgICAgICAgICAgICAgICAgICAgICAgICAgICAgICAgICAgICAgICAgIC QcLUGeVH3SDXLnGLWzWKVuAANtMNKhZHBrYKOgOYBp ICAgICAgICAgICAgICAgICAgICAgICAgICAgICAgICAgICAgICAgICAgICAgICAgICAgICAgICAgICAg RGJyYQCwLWUaRNQnFXVlMS8FSTNxDTPeMULrJVHuWVGbEKNxHGJiHNOyMYDcOTSrALUcZXYhFNQeALYm ICAgICAgICAgICAgICAgICAgICAgICAgICAgICAgIC TnILNgLSYvNXTdPYBcPNDgZWAbFADpRRFtFI4TVCPxGSVhJKCfTJDvVEGhGQFkDKIcNHHpRQOaLYYsQM AgICAgICAgICAgICAgICAgICAgICAgICAgICAgICAgICAgICAgICAgICAgICAgICAgICAgICAgICAgIC JrWSHxBVKfID9XJPLxAEIlNGHrNIPlFXIoRXDiYLKs ICAgICAgICAgICAgICAgICAgICAgICAgICAgICAgICAgICAgICAgICAgICAgICAgICAgICAgICAgICAg GJAzIMMbXNHfQOFwPRCpFQFmPI3NIB11iOCsk9K6JGAtBE9bjlo/Rp2BAUxyqrMimOZhYS7HJwWaNA0e pl3VAhUxCD8sau9MXPiWPcBwN2V4tNZpCQSkHUFJAv PzH87uKTaaZf04QAamCCFlYyPuXHl3Wg0AEvBfW9rrVWUrSbM6WCNnVjI7LXOiViOzQSkiGC4Vc6GuhX AyDQo+Jo1IJB1we8OyNCrwUdCmSR4ufj8JNQvAFzBvR8J4tMEwU7H7SStaLe6CQYBeNCJmBdZgOVMVGS fvPD0XBY5shbF1DT9IrVKfUTJiUVSfsEAwALx6Z35m cSViHZkwKL4TCKD+Samm+Id5FJMAtQNZaRSPpNyYrTTHSYdSxF82kaXQhLCGwJNXcZBNmVz0KVFTpE7Rs qjTqgLbwufPnCRKvMJQHXB0LDUuduqJcnINheXbeAK11bCplFF0ODd7WRhApBJ5gqd5GsGKwPv4TEGIc CR4VNEFuMPJfXBAzWCP3KVQdAgTxTXwgKPIjPZJoHG Q0BZDmHSOqHD7RSpGtATZrQCM5WUnfGNKbPCLapu9JBNWtJJJ1SPI3HFCcBUDaMEWvYUasGFLlVTYnSr TsUIUvBHUePO4CRlErOZFeTYI7AwbuXCCkKYVmmt0GQVWfVHTiWvg7XcIcUUYgULDrGSwmZOChVMP8Hm T2JOTkZKAoWX5TLzPdBCGlLLS8GkSaLIDxNYPdsu4Y VKNzKXAzFtdnKaQqSJPjUTPkZPxuSAFzSPB4AQV7JTXuJEWiUQ6JUpRmMNEoRTowFRtiIYJfYYSgmr2I GJZmBRXbVUS3LDVeQSMkQWSzXOwwAVLbFMZ0FIdsPGHuXKGaHJ0MDyUgIRGmCGa8LRyyDRDjINQkhc1A MDAwMDAxMzUxNCAwMDAwMCBuDQowMDAwMDEzODMxID HxKVKpQQ2HMdFcVAAxLHSbHYYwPJSsUFTguq7OLWYpPLKfHCE8HpOhUONqCGZxSLflJGVdSXL7JTCgNM DxWWQxFL4EFjQkHBWpYKWdFaQeLIWxVYWozm6MGZAtOLVfPCT8VcNmEXHtQYKgPAzhVGDbHJB7JwGtWN VkOUXjDP9OPfUfXETuVyI5FHDbANGnTYKnio0ABPXa NOFaXOFnRmUqAWVeWPRbZJcuJUOfHXH4ReOyAXLtUESoJX2DJeYrSOWxQoi7DvPmEOYtTLJiti1OWIKo PQS9MoI2ABQvYMHfPASnDPacNTEbBKJvRUs4VIUdXZZpCD7AJqJyZHLvDwO3BhYhZNKjGAJycq0VFSNb QIY4MOBiESFxASBpULLhQHyaXQWwCNf4Zjp9KCVeSU XyIB1IPhQsCNQfOIcpALzwYCSsNOHxxi2ALBEhZOZ0LYhfIjFuTMQiPZIeFAz4joHfrVRbOEv2ET5NC6 JaifHpRkRIYd3Sx019OYMbMRChNg2DP1qxIs1iBOLxGKPLAw9EEYf1PzYmSGHrBDZ2NHHkDFqoFKAzJG I8ISMpZsT6FGFvSMN+BIemFCF5GnSlSNkqEQQjAAIc J0V1UYvtC4R6JDUzJpF0Cz4gTCRTZj2+AUobfMNdkVeoUWAFMoc6EFx8RZndDDFWKu8O Procedure Social History Code Duration Value Status Description Data Source(s ) Smoking 01/31/2020 12:00:00 AM EST Never Smoker completed Never S moker eCW1 ([facility]) Smoking 01/30/2020 12:00:00 AM EST Patient has never smoked co mpleted Patient has never smoked MEDENT ([facility]) Smoking 10/24/2019 07:59:33 AM EDT Never smoked tobacco (sherwin grimaldo) completed Never smoked tobacco (finding) JALEN (Andrew Finley MD [facility]) Smoking 09/21/2019 08:41:23 AM EDT Never smoked tobacco (sherwin grimaldo) completed Never smoked tobacco (finding) JALEN (Andrew Finley MD [facility]) Smoking 08/16/2019 12:00:00 AM EDT Never Smoker completed Never S moker eCW1 ([facility]) Smoking 08/16/2019 12:00:00 AM EDT Never Smoker completed Never S moker eCW1 ([facility]) Smoking 08/02/2019 12:00:00 AM EDT Never Smoker completed Never S moker eCW1 ([facility]) Smoking 08/02/2019 12:00:00 AM EDT Never Smoker completed Never S moker eCW1 ([facility]) Smoking 08/02/2019 12:00:00 AM EDT Never Smoker completed Never S moker eCW1 ([facility]) Vital Signs ID Date Data Source UNK Name Value Range Interpretation Code Description Data Source(s) Body surface area Derived from formula 1.44 m2 1.44 m2 [facility] ([facility]) Body weight 50.350 kg 50.350 kg [facility] ([facility]) Bazine body weight 100 [lb_av] 100 [lb_av] [facility] Body mass index (BMI) [Ratio] 22.4 kg/m2 22.4 k g/m2 [facility] ([facility]) Body weight 111.00 [lb_av] 111.00 [lb_av] [facility] ([facility]) Body height 59 [in_i] 59 [in_i] [facility] ([facility]) 4'11" Diastolic blood pressure 65 mm[Hg] 65 mm[Hg] [facility] ([facility]) Systolic blood pressure 114 mm[Hg] 114 mm[Hg] M EDENT ([facility]) Diastolic blood pressure 54 mm[Hg] 54 mm[Hg] eCW1 ([facility]) Systolic blood pressure 94 mm[Hg] 94 mm[Hg] e CW1 ([facility]) Body temperature 96.5 [degF] 96.5 [degF] eCW1 ( [facility]) Respiratory rate 20 /min 20 /min eCW1 ([facility]) Heart rate 94 /min 94 /min eCW1 ([facility]) Body mass index (BMI) [Ratio] 20.89 kg/m2 20.89 kg/m2 eCW1 ([facility]) Body height 60 [in_i] 60 [in_i] eCW1 ([facility]) Body weight 107 [lb_av] 107 [lb_av] eCW1 ([facility]) Body surface area Derived from formula 1.42 m2 1.42 m2 [facility] ([facility]) Body weight 48.705 kg 48.705 kg [facility] ([facility]) Bazine body weight 100 [lb_av] 100 [lb_av] [facility] T ([facility]) Body mass index (BMI) [Ratio] 21.7 kg/m2 21.7 k g/m2 [facility] ([facility]) Body weight 107.38 [lb_av] 107.38 [lb_av] [facility] T ([facility]) Body height 59 [in_i] 59 [in_i] [facility] ([facility]) 4'11" Body temperature 97.8 [degF] 97.8 [degF] [facility] ([facility]) Oxygen saturation in Arterial blood by Pulse oximetry 95 % 95 % [facility] ([facility]) Heart rate 92 /min 92 /min [facility] ([facility]) Diastolic blood pressure 60 mm[Hg] 60 mm[Hg] [facility] ([facility]) Systolic blood pressure 112 mm[Hg] 112 mm[Hg] [facility]) Body surface area Derived from formula 1.40 m2 1.40 m2 [facility] ([facility]) Body weight 47.401 kg 47.401 kg [facility] ([facility]) Bazine body weight 100 [lb_av] 100 [lb_av] [facility] ([facility]) Body mass index (BMI) [Ratio] 21.1 kg/m2 21.1 k g/m2 [facility] ([facility]) Body weight 104.50 [lb_av] 104.50 [lb_av] [facility] T ([facility]) Body height 59 [in_i] 59 [in_i] [facility] 4'" Diastolic blood pressure 66 mm[Hg] 66 mm[Hg] [facility] ([facility]) Systolic blood pressure 130 mm[Hg] 130 mm[Hg] [facility] Body surface area Derived from formula 1.40 m2 1.40 m2 [facility] ([facility]) Body weight 47.174 kg 47.174 kg [facility] ([facility]) Bazine body weight 100 [lb_av] 100 [lb_av] [facility] T ([facility]) Body mass index (BMI) [Ratio] 21.0 kg/m2 21.0 k g/m2 [facility] ([facility]) Body weight 104.00 [lb_av] 104.00 [lb_av] [facility] ([facility]) Body height 59 [in_i] 59 [in_i] [facility] ([facility]) 4" Diastolic blood pressure 61 mm[Hg] 61 mm[Hg] [facility] ([facility]) Systolic blood pressure 115 mm[Hg] 115 mm[Hg] [facility]) Diastolic blood pressure 56 mm[Hg] 56 mm[Hg] eCW1 ([facility]) Systolic blood pressure 96 mm[Hg] 96 mm[Hg] e CW1 ([facility]) Body temperature 97.4 [degF] 97.4 [degF] eCW1 ( [facility]) Respiratory rate 20 /min 20 /min eCW1 ([facility]) Heart rate 105 /min 105 /min eCW1 ([facility]) Body mass index (BMI) [Ratio] 20.50 kg/m2 20.50 kg/m2 eCW1 ([facility]) Body height 60 [in_i] 60 [in_i] eCW1 ([facility]) Body weight 105 [lb_av] 105 [lb_av] eCW1 ([facility]) Diastolic blood pressure 40 mm[Hg] 40 mm[Hg] eCW1 ([facility]) Systolic blood pressure 82 mm[Hg] 82 mm[Hg] e CW1 ([facility]) Body temperature 97 [degF] 97 [degF] eCW1 ([facility]) Respiratory rate 20 /min 20 /min eCW1 ([facility]) Heart rate 102 /min 102 /min eCW1 ([facility]) Body mass index (BMI) [Ratio] 20.89 kg/m2 20.89 kg/m2 eCW1 ([facility]) Body height 60 [in_i] 60 [in_i] eCW1 ([facility]) Body weight 107 [lb_av] 107 [lb_av] eCW1 ([facility]) Diastolic blood pressure 50 mm[Hg] 50 mm[Hg] eCW1 ([facility]) Systolic blood pressure 92 mm[Hg] 92 mm[Hg] e CW1 ([facility]) Body temperature 96.7 [degF] 96.7 [degF] eCW1 ( [facility]) Respiratory rate 20 /min 20 /min eCW1 ([facility]) Heart rate 112 /min 112 /min eCW1 ([facility]) Body mass index (BMI) [Ratio] 24.41 kg/m2 24.41 kg/m2 eCW1 ([facility]) Body height 60 [in_us] 60 [in_us] eCW1 ([facility]) Body weight Measured 125 [lb_av] 125 [lb_av] eC W1 ([facility]) Diastolic blood pressure 48 mm[Hg] 48 mm[Hg] eCW1 ([facility]) Systolic blood pressure 82 mm[Hg] 82 mm[Hg] e CW1 ([facility]) Body temperature 96.5 [degF] 96.5 [degF] eCW1 ( [facility]) Respiratory rate 20 /min 20 /min eCW1 ([facility]) Heart rate 97 /min 97 /min eCW1 ([facility]) Body mass index (BMI) [Ratio] 20.50 kg/m2 20.50 kg/m2 eCW1 ([facility]) Body height 60 [in_us] 60 [in_us] eCW1 ([facility]) Body weight Measured 105 [lb_av] 105 [lb_av] eC W1 ([facility]) Body mass index (BMI) [Ratio] 21.2 kg/m2 [...] blood pressure 58 mm[Hg] 58 mm[Hg] eCW1 ([facility]) Systolic blood pressure 96 mm[Hg] 96 mm[Hg] e CW1 ([facility]) Body temperature 96.7 [degF] 96.7 [degF] eCW1 ( [facility]) Respiratory rate 18 /min 18 /min eCW1 ([facility]) Heart rate 99 /min 99 /min eCW1 ([facility]) Body mass index (BMI) [Ratio] 21.09 kg/m2 21.09 kg/m2 eCW1 ([facility]) Body height 60 [in_us] 60 [in_us] eCW1 ([facility]) Body weight Measured 108 [lb_av] 108 [lb_av] eC W1 ([facility]) Diastolic blood pressure 60 mm[Hg] 60 mm[Hg] eCW1 ([facility]) Systolic blood pressure 130 mm[Hg] 130 mm[Hg] e CW1 ([facility]) Body temperature 98.1 [degF] 98.1 [degF] eCW1 ( [facility]) Respiratory rate 18 /min 18 /min eCW1 ([facility]) Heart rate 110 /min 110 /min eCW1 ([facility]) Body mass index (BMI) [Ratio] 22.77 kg/m2 22.77 kg/m2 eCW1 ([facility]) Body height 60 [in_us] 60 [in_us] eCW1 ([facility]) Body weight Measured 116.6 [lb_av] 116.6 [lb_av ] eCW1 ([facility]) Patient Treatment Plan of Care Planned Activity Planned Date Details Description Data Source (s) Albuterol 0.83 MG/ML Inhalant Solution 06/27/2019 12:00:00 AM EDT eCW1 ([facility]) fidaxomicin 200 MG Oral Tablet [Dificid] 06/27/2019 12:00:00 AM EDT eCW1 ([facility]) fidaxomicin 200 MG Oral Tablet [Dificid] 06/27/2019 12:00:00 AM EDT eCW1 ([facility]) fidaxomicin 200 MG Oral Tablet [Dificid] 06/27/2019 12:00:00 AM EDT eCW1 ([facility]) fidaxomicin 200 MG Oral Tablet [Dificid] 06/27/2019 12:00:00 AM EDT eCW1 ([facility]) Sucralfate 1000 MG Oral Tablet 06/27/2019 12:00:00 AM EDT eCW1 ([facility]) Pilocarpine Hydrochloride 10 MG/ML Ophthalmic Solution 03/08/2019 12:00:00 AM EST eCW1 ([facility]) Pilocarpine Hydrochloride 10 MG/ML Ophthalmic Solution 03/08/2019 12:00:00 AM EST eCW1 ([facility]) Sucralfate 100 MG/ML Oral Suspension 03/08/2019 12:00:00 AM EST eCW1 ([facility])
[2020-04-15] MEDS ORDERED: ALBUTEROL SULFATE 2.5 MG/0.5 ML INH NEB SOLN INH PRN (22:30)
[2020-04-15] MEDS ORDERED: ONDANSETRON 4 MG ORAL DISINTEGRATING TAB PO PRN (22:30)
[2020-04-15] MEDS ORDERED: LEVALBUTEROL HFA 45MCG/ACT 15 GM INHALER INH PRN (23:00)
--- NOTE | 2020-04-15 23:20 | HPEPDOC ---
General Date of Admission Apr 15, 2020 at 22:18 Date of Service: Apr 15, 2020 Chief Complaint The patient is a 79-year-old female admitted with a reason for visit of Uti, Weakness. Source: Patient, Old records Timing/Duration: Week(s) Severity: Mild Associated Symptoms: Nausea, Vomiting History of Present Illness Patient is a 79 yo female who has PMH of UTI presented to [facility] due to generalized weakness and urinary urgency for one day. She reported that she lowered to the floor without falling. Reported chills but denies fever. She reported that she has frequent UTI about every other month for the past year. She reported intermittent diarrhea and constipation but currently she does not have any abdominal pain, diarrhea, or constipation. From last Sat she startd to have right flank pain, denies dysuria, hematuria. For her cough, pt has a hx of bronchiectasis and reported her cough and dyspnea and been chronic, at baseline without changes. She denies any chest pain or palpitations. Home Medications Scheduled Ascorbic Acid (Vitamin C) 250 Mg Tab, 250 MG PO DAILY, (Reported) Calcium Carbonate/Vitamin D3 (Oyster Shell 500-Vit D3 200 Tb) 1 Tab Tab, 1 TAB PO DAILY, (Reported) Furosemide (Furosemide) 40 Mg Tablet, 20 MG PO DAILY, (Reported) Multivitamins (Thera M Plus Tablet) 1 Tab Tab, 1 TAB PO DAILY, (Reported) Pantoprazole Sodium (Pantoprazole Sodium) 40 Mg Tablet.dr, 40 MG PO DAILY, (Reported) Pilocarpine HCl (Pilocarpine HCl) 1% 15ML Drops, 1 DROP OS QID, (Reported) Scheduled PRN Albuterol Sulf (Albuterol Sulfate) 2.5 Mg/3 Ml Nebu, 2.5 MG INH QID PRN for SHORTNESS OF BREATH, (Reported) Allergies Coded Allergies: bimatoprost (Verified Allergy, Intermediate, EYE REDNESS, 12/05/18) cephalexin (Unverified Allergy, Unknown, 07/20/19) doxycycline (Unverified Allergy, Unknown, 07/20/19) levofloxacin (Unverified Allergy, Unknown, 07/20/19) latanoprost (Verified Adverse Reaction, Intermediate, EYE PAIN HEART RACING, 07/20/19) travoprost (Verified Adverse Reaction, Intermediate, EYE PAIN HEART RACING, 07/20/19) Sulfa (Sulfonamide Antibiotics) (Verified Adverse Reaction, Mild, GI ISSUES, 07/20/19) brimonidine (Verified Adverse Reaction, Mild, 07/20/19) diclofenac (Verified Adverse Reaction, Mild, VOMITS, 07/20/19) dorzolamide (Verified Adverse Reaction, Mild, CONGESTED,COUGH, 07/20/19) moxifloxacin (Verified Adverse Reaction, Mild, DIARRHEA, 12/05/18) timolol (Verified Adverse Reaction, Mild, CONGESTED,COUGH, 07/20/19) Past Medical History Medical History Adenomatous polyps Bilateral cataract s/p extractions Gallstone pancreatitis PNA-multiple Symptomatic acute on chronic anemia Severe erosis esophagitits DARLINE CHF GI bleed Bronchiectasis with heavy pseudomonas director long term care second hand exposure Osteopenia Iron deficiency anemia Hx of C. diff in 2018 Glaucoma Right ankle fracture CKD stage 3 LA grade D erosive esophagitis/duodenal erosions Cholelithiasis Surgical History Colonoscopies and upper EGDs B/l cataract extractions Left laser eye 09/2016 Family History Mother-colon cancer Brother-lung cancer Sister-unspecified cancer Son-type 1 diabetes Social History * Smoker: Denies Alcohol: Denies A-FIB/CHADSVASC A-FIB History Current/History of A-Fib/PAF?: No Review of Systems Constitutional: Denies: Chills, Fever Eyes: Denies: Vision change ENT: Denies: Dysphagia Skin: Denies: Rash Pulmonary: Reports: Dyspnea (Chronic, unchanged, stable), Cough (Chronic, unchanged, stable) Cardiovascular: Denies: Chest Pain, Palpitations Gastrointestinal: Denies: Nausea, Vomiting, Abdominal Pain, Diarrhea, Constipation, Hematochezia Genitourinary: Reports: Frequency (Chronic), Other Symptoms (urgency); Denies: Dysuria, Hematuria Musculoskeletal: Reports: Other Symptoms (RIght flank pain) Neurological: Denies: Weakness, Numbness Psych: Reports: Mood Normal Physical Examination General Exam: Positive: Cooperative Eye Exam: Positive: EOMI; Negative: Sclera icteric ENT Exam: Positive: Atraumatic Neck Exam: Positive: Supple Chest Exam: Positive: Other (course breath sounds) Heart Exam: Positive: Rate Normal, Tachycardic Abdomen Exam: Positive: Normal bowel sounds, Soft Extremity Exam: Negative: Edema Neuro Exam: Positive: Normal Speech Psych Exam: Positive: Mental status NL, Mood NL Vital Signs Vital Signs Date Time Temp Pulse Resp B/P (MAP) Pulse Ox O2 Delivery O2 Flow Rate FiO2 04/15/20 22:28 101 18 98 04/15/20 22:15 99.8 145/78 (100) Room Air 04/15/20 17:26 2.0 Laboratory Data Labs 24H Laboratory Tests 2 04/15/20 17:36: Immature Granulocyte % (Auto) 0.6, Neutrophils (%) (Auto) 79.4H, Lymphocytes (%) (Auto) 9.9L, Monocytes (%) (Auto) 9.6H, Eosinophils (%) (Auto) 0.3, Basophils (%) (Auto) 0.2, Neutrophils # (Auto) 9.4H, Lymphocytes # (Auto) 1.2L, Monocytes # (Auto) 1.1H, Eosinophils # (Auto) 0.0, Basophils # (Auto) 0.0, Nucleated Red Blood Cells % (auto) 0.0, Anion Gap 7L, Glomerular Filtration Rate 28.5L, Lactic Acid Level 2.3*H, Calcium Level 9.1, Total Bilirubin 0.7, Direct Bilirubin 0.3H, Aspartate Amino Transf (AST/SGOT) 32, Alanine Aminotransferase (ALT/SGPT) 26, Alkaline Phosphatase 126H, Total Creatine Kinase 64, Creatine Kinase MB < 1.0, Creatine Kinase MB Relative Index 1.56, Troponin I < 0.02, KL-Nww-U-Type Natriuretic Peptide 1809H, Total Protein 7.6, Albumin 2.7L, Albumin/Globulin Ratio 0.6L, Thyroid Stimulating Hormone (TSH) 1.170, Thyroxine (T4) 8.1 04/15/20 17:47: Coronavirus (COVID-19)(PCR) NEGATIVE, Influenza Type A (RT-PCR) NEGATIVE, Influenza Type B (RT-PCR) NEGATIVE, Respiratory Syncytial Virus (PCR) NEGATIVE 04/15/20 19:44: Urine Color YELLOW, Urine Appearance CLOUDYH, Urine pH 6.0, Urine Specific [place] 1.011, Urine Protein 1+H, Urine Glucose (UA) NEGATIVE, Urine Ketones NEGATIVE, Urine Blood NEGATIVE, Urine Nitrite NEGATIVE, Urine Bilirubin NEGATIVE, Urine Urobilinogen 0.2, Urine Leukocyte Esterase 3+H, Urine WBC (Auto) TNTCH, Urine RBC (Auto) 38H, Urine Hyaline Casts (Auto) 0, Urine Bacteria (Auto) 2+H, Urine Squamous Epithelial Cells 4, Urine Transitional Epithelial Cells <1, Urine Mucus (Auto) SMALL, Urine Sperm (Auto) CBC/BMP Laboratory Tests 04/15/20 17:36 Microbiology Microbiology 04/15/20 Urine Culture, Received Pending 04/15/20 Blood Culture, Received Pending 04/15/20 Blood Culture, Received Pending Assessment/Plan 1. Generalized weakness likely 2/2 UTI -UA indicated UTI. patient also indicate right flank pain and frequent UTI every other month, CT abd/pelvis ordered -F/o BMP, I&O, daily weight, IV Ceftriaxone, blood culture -PT, fall precaution 2. Lactic acidosis likely 2/2 UTI vs dehydration -NS ordered, follow up lactic acid, BP and oxygen saturation stable 3. DARLINE -Likely from UTI, r/p hydronephrosis -NS ordered. CT abd/pelvis pending -F/u with BMP -I&O, daily weights 4. Bronchiectasis -Extensive cystic bronchiectasis stable noted on CT -patient report baseline cough and dyspnea unchanged from usual -Cont home inhaler treatment. -xopenex PRN, oxygen therapy, vital signs 5. Ascending thoracic aorta dilatation -Dilatation of the ascending thoracic aorta measured 3.6 cm maximally without saccular component was noted on chest CT. Consider outpatient follow up. 6. Hiatal hernia -A small to moderate hiatal hernia noted on chest CT -Consider outpatient follow up/referral 7. Asymptomatic cholelithiasis -gallstone noted on chest CT -patient denies abdominal pain, nausea, or vomiting -conservative care DVT prophylaxis: lovenox, SCD, TEDS Addendum -C.diff positive: Patient has been having diarrhea while in the ED. Tested positive for C.diff. Started patient on PO Vancomycin Plan / VTE VTE Prophylaxis Ordered?: Yes GME ATTESTATION GME ATTESTATION My faculty preceptor for this patient encounter was physically present during the encounter and was fully available. All aspects of the patient interview, examination, medical decision making process, and medical care plan development were reviewed and approved by the faculty preceptor. The faculty preceptor is aware and concurs with the plan as stated in the body of this note and will attest to such by his/her cosignature. ATTENDING NOTE I, Adwoa Pham DO, performed a history and physical examination of the patient and discussed her management with the resident, Deborah Mcfarland DO. I reviewed the resident's note and agree with the documented findings and plan of care. DEBORAH MCFARLAND DO Apr 15, 2020 23:20 ADWOA PHAM DO Apr 16, 2020 08:16
[2020-04-15] MEDS: GASTROGRAFIN SOLUTION 30ML PO SCH (23:31)
[2020-04-15] MEDS ORDERED: NS 500 ML IV ONE (23:45)
[2020-04-15 23:49] LABS: LIPASE 44 U/L (73-393)
[2020-04-16] MEDS: GASTROGRAFIN SOLUTION 30ML PO SCH (00:18)
--- NOTE | 2020-04-16 01:55 | REPVR ---
PROCEDURE INFORMATION: Exam: CT Abdomen And Pelvis Without Contrast Exam date and time: 04/16/2020 1:15 AM Age: 79 years old Clinical indication: Abdominal pain; Generalized; Additional info: R/O diverticulitis and nephrolithiasis TECHNIQUE: Imaging protocol: Computed tomography of the abdomen and pelvis without contrast. Radiation optimization: All CT scans at this facility use at least one of these dose optimization techniques: automated exposure control; mA and/or kV adjustment per patient size (includes targeted exams where dose is matched to clinical indication); or iterative reconstruction. COMPARISON: CT ABD PELVIS W/O CONTRAST 07/20/2019 2:36 PM FINDINGS: Lungs: Extensive bronchiectasis and scarring in the left lower and right middle lobes. Traction bronchiectasis is also noted at the right base. Mediastinal space: Moderate hiatal hernia. Marked thickening of the distal esophageal wall. Liver: Liver contour nodularity concerning for cirrhosis. Gallbladder and bile ducts: Cholelithiasis. No evidence of acute cholecystitis. Pancreas: Normal. No ductal dilation. Spleen: Normal. No splenomegaly. Adrenal glands: Normal. No mass. Kidneys and ureters: Nonobstructive bilateral nephrolithiasis. No hydronephrosis. Stomach and bowel: Diverticulosis of the colon. No evidence of acute diverticulitis. Bowel wall thickening involving multiple loops of small and large bowel. Appendix: No evidence of appendicitis. Intraperitoneal space: Unremarkable. No free air. No significant fluid collection. Vasculature: Atherosclerotic disease of the abdominal aorta. Lymph nodes: Unremarkable. No enlarged lymph nodes. Urinary bladder: Unremarkable as visualized. Reproductive: Simple 2 cm right ovarian cyst. Bones/joints: Loss of normal lumbar lordosis. Severe multilevel degenerative disease and facet hypertrophy of the lumbar spine. Soft tissues: Fat containing umbilical hernia. IMPRESSION: Moderate hiatal hernia. Marked thickening of the distal esophageal wall. Cirrhosis. Cholelithiasis. No evidence of acute cholecystitis. Diverticulosis of the colon. No evidence of acute diverticulitis. Bowel wall thickening involving multiple loops of small and large bowel. This may reflect colitis or portal colopathy. Nonobstructive bilateral nephrolithiasis. No hydronephrosis. Electronically signed by: Magdaleno Wilburn On 04/16/2020 01:55:24 AM
[2020-04-16 02:00] VITALS: BP 115/63
[2020-04-16 04:05] LABS: CLOSTRIDIUM DIFFICILE PCR POSITIVE (NEGATIVE)
[2020-04-16 06:00] VITALS: BP 115/62
[2020-04-16] MEDS: VANCOMYCIN ORAL SOL 250MG/5ML ORAL SYRINGE PO SCH ×3 (06:10→17:16)
[2020-04-16 06:49] LABS: HEMATOCRIT 30.5 % (36.0-47.0); HEMOGLOBIN 9.6 g/dl (12.0-15.5); MEAN CORPUSCULAR HEMOGLOBIN 29.2 pg (27.0-33.0); MEAN CORPUSCULAR HGB CONC 31.5 g/dl (32.0-36.5); MEAN CORPUSCULAR VOLUME 92.7 fl (80.0-96.0); PLATELET COUNT, AUTOMATED 121 10^3/uL (150-450); RED BLOOD COUNT 3.29 10^6/uL (4.00-5.40); WHITE BLOOD COUNT 11.7 10^3/uL (4.0-10.0)
[2020-04-16 07:05] LABS: CALCIUM LEVEL 8.6 MG/DL (8.8-10.2); CREATININE FOR GFR 1.69 MG/DL (0.55-1.30)
[2020-04-16] MEDS: PILOCARPINE 1% OPHTH SOLN 15 ML OS SCH ×4 (09:49→21:37)
[2020-04-16] MEDS: ASCORBIC ACID 250 MG TAB PO SCH (09:49)
[2020-04-16] MEDS: PANTOPRAZOLE 40MG TAB (PROTONIX) PO SCH (09:49)
[2020-04-16] MEDS: ENOXAPARIN 30MG/0.3ML SYRINGE (J1650 PER 10MG) SC SCH (09:49)
[2020-04-16] MEDS: MULTIVITAMINS/MINERALS THERAP 1 TAB PO SCH (09:49)
[2020-04-16] MEDS: CALCIUM/VITAMIN D 500 MG TAB PO SCH (09:49)
--- NOTE | 2020-04-16 10:24 | IPNPDOC ---
Date Seen The patient was seen on 04/16/20. Progress Note ADDENDUM TO PROGRESS NOTE: CHRONIC CHF GRADE 1 DIASTOLIC DYSFUNCTION EF 75% VS, I&O, 24H, [facility] Vital Signs/I&O Vital Signs Date Time Temp Pulse Resp B/P (MAP) Pulse Ox O2 Delivery O2 Flow Rate FiO2 04/16/20 06:00 98.5 112 22 115/62 (79) 97 Nasal Cannula 2.0 I&O- Last 24 Hours up to 6 AM 04/16/20 06:00 Intake Total 300 ml Output Total 0 ml Balance 300 ml Laboratory Data 24H LABS Laboratory Tests 2 04/15/20 17:36: Immature Granulocyte % (Auto) 0.6, Neutrophils (%) (Auto) 79.4H, Lymphocytes (%) (Auto) 9.9L, Monocytes (%) (Auto) 9.6H, Eosinophils (%) (Auto) 0.3, Basophils (%) (Auto) 0.2, Neutrophils # (Auto) 9.4H, Lymphocytes # (Auto) 1.2L, Monocytes # (Auto) 1.1H, Eosinophils # (Auto) 0.0, Basophils # (Auto) 0.0, Nucleated Red Blood Cells % (auto) 0.0, Anion Gap 7L, Glomerular Filtration Rate 28.5L, Lactic Acid Level 2.3*H, Calcium Level 9.1, Total Bilirubin 0.7, Direct Bilirubin 0.3H, Aspartate Amino Transf (AST/SGOT) 32, Alanine Aminotransferase (ALT/SGPT) 26, Alkaline Phosphatase 126H, Total Creatine Kinase 64, Creatine Kinase MB < 1.0, Creatine Kinase MB Relative Index 1.56, Troponin I < 0.02, HK-Pyh-J-Type Natriur etic Peptide 1809H, Total Protein 7.6, Albumin 2.7L, Albumin/Globulin Ratio 0.6L, Lipase 44L, Thyroid Stimulating Hormone (TSH) 1.170, Thyroxine (T4) 8.1 04/15/20 17:47: Coronavirus (COVID-19)(PCR) NEGATIVE, Influenza Type A (RT-PCR) NEGATIVE, Influenza Type B (RT-PCR) NEGATIVE, Respiratory Syncytial Virus (PCR) NEGATIVE 04/15/20 19:44: Urine Color YELLOW, Urine Appearance CLOUDYH, Urine pH 6.0, Urine Specific [place] 1.011, Urine Protein 1+H, Urine Glucose (UA) NEGATIVE, Urine Ketones NEGATIVE, Urine Blood NEGATIVE, Urine Nitrite NEGATIVE, Urine Bilirubin NEGATIVE, Urine Urobilinogen 0.2, Urine Leukocyte Esterase 3+H, Urine WBC (Auto) TNTCH, Urine RBC (Auto) 38H, Urine Hyaline Casts (Auto) 0, Urine Bacteria (Auto) 2+H, Urine Squamous Epithelial Cells 4, Urine Transitional Epithelial Cells <1, Urine Mucus (Auto) SMALL, Urine Sperm (Auto) 04/15/20 23:23: Lactic Acid Followup at 4 Hours 2.0, Procalcitonin 0.45 04/15/20 23:32: 04/16/20 02:29: Clostridium difficile [id number] PRESUMPTIVE NEGATIVE, Clostridium difficile Toxin (PCR) POSITIVEA 04/16/20 06:00: Nucleated Red Blood Cells % (auto) 0.0, Anion Gap 5L, Glomerular Filtration Rate 31.0L, Calcium Level 8.6L CBC/BMP Laboratory Tests 04/15/20 17:36 04/16/20 06:00 Microbiology Microbiology 04/15/20 Urine Culture, Received Pending 04/15/20 Blood Culture, Received Pending 04/15/20 Blood Culture, Received Pending DEBBIE KIMBALL MD Apr 16, 2020 10:24
--- NOTE | 2020-04-16 12:21 | IPN ---
PROGRESS NOTE DATE: 04/16/2020 SUBJECTIVE: Patient complains of generalized weakness and fatigue. No dysuria, urgency, frequency, fever, chills or flank pain. PHYSICAL EXAMINATION ON DISCHARGE: Vital signs: Temperature 98.5, pulse 112, respiratory 22, blood pressure 115/62, 97% on 2 liters nasal cannula. General: Awake, alert, oriented times 3, answering questions appropriately sitting at the bedside eating her breakfast in no respiratory distress. HEENT: No pallor or icterus. Moist mucous membranes. Neck: No JVD, no thyromegaly. Lungs: Clear to auscultation, no wheezes, rhonchi or rales. Heart: S1 and S2, sinus tachycardia. Abdomen: Soft, nontender, nondistended, positive bowel sounds. No CVA tenderness. Extremities: No cyanosis, clubbing or pitting edema. LABORATORY DATA: White count 11.7, hemoglobin 9.6, hematocrit 30, platelet count 121 previous platelet count 139. Sodium 140, potassium 4, chloride 106, bicarb 29, BUN 22, creatinine 1.69, glucose 91. Lactic acid of 2. Urine and blood cultures are pending. IMAGING STUDIES: CT abdomen and pelvis 04/15/20: Moderate hiatal hernia, marked thickening of the distal esophageal wall, liver cirrhosis, cholelithiasis, no evidence of acute cholecystitis, diverticulosis of the colon, no evidence of acute diverticulitis, bowel wall thickening involving multiple loops of small and large bowels. This may reflect colitis or portal colopathy, nonobstructive bilateral nephrolithiasis, no hydronephrosis. CT chest 04/15/20: Extensive cystic bronchiectasis throughout the left lung sounds stable in appearance, cylindrical and thick bronchiectasis in the right lung, extensive bilateral apical pleural parenchymal scarring with multiple irregular parenchymal opacities right upper lung which appear grossly stable, marked volume loss and left hemithorax causing shift of the heart mediastinum, no significant change in interstitial markings demonstrated to suggest presence of interstitial edema cardiogenic or otherwise, fusiform dilation of ascending thoracic aorta measuring 3.6 cm maximally, there is no saccular component, enlargement of central pulmonary arteries associated with pulmonary arterial hypertension, small to moderate hiatal hernia, gallstone with no evidence of cholecystitis. ASSESSMENT AND PLAN: This is an 79-year-old female with history of chronic kidney disease stage 3, diastolic heart failure, chronic bronchiectasis with history of pseudomonas colonization, GI bleed, duodenal erosions with LA Grade D erosive esophagitis, moderate hiatal hernia, liver cirrhosis, cholelithiasis, portal colopathy, bilateral nephrolithiasis, ascending thoracic aortic fusiform dilatation measuring 3.6 cm maximally with no saccular component, pulmonary artery hypertension admitted due to a urinary tract infection on 04/15/20 with complaints of nausea and vomiting and right sided flank pain. Current issues are as follows: 1. Urinary tract infection: Currently on I.V. ceftriaxone awaiting urine and blood culture results. 2. Acute on chronic kidney disease stage 3: At baseline creatinine. 3. Chronic bronchiectasis: Aggressive pulmonary toilet with chest PT, acapella device and Mucinex. 4. Ascending thoracic aorta dilatation 3.6 cm maximally without saccular component: Outpatient follow up, monitor patient's blood pressure. 5. Moderate pulmonary hypertension, chronic: Complicating care. 6. Hiatal hernia small to moderate: PPI is needed. 7. Cirrhosis of the liver, chronic. 8. Anemia of chronic disease: No acute indication for RBC transfusion. DISPOSITION: One to 2 days, will need PT, OT and ARU consult.
[2020-04-16 14:00] VITALS: BP 101/43
[2020-04-16 22:00] VITALS: BP 112/56
[2020-04-16] MEDS ORDERED: cefTRIAXone SOD 1 GM in D5W MINI-BAG PLUS 50 ML IV SCH (22:00)
[2020-04-17] MEDS: VANCOMYCIN ORAL SOL 250MG/5ML ORAL SYRINGE PO SCH ×3 (00:14→11:14)
[2020-04-17 06:00] VITALS: BP 102/50
[2020-04-17 06:15] LABS: HEMATOCRIT 27.4 % (36.0-47.0); HEMOGLOBIN 8.6 g/dl (12.0-15.5); MEAN CORPUSCULAR HEMOGLOBIN 29.2 pg (27.0-33.0); MEAN CORPUSCULAR HGB CONC 31.4 g/dl (32.0-36.5); MEAN CORPUSCULAR VOLUME 92.9 fl (80.0-96.0); PLATELET COUNT, AUTOMATED 100 10^3/uL (150-450); RED BLOOD COUNT 2.95 10^6/uL (4.00-5.40); WHITE BLOOD COUNT 7.8 10^3/uL (4.0-10.0)
[2020-04-17 06:39] LABS: CALCIUM LEVEL 8.1 MG/DL (8.8-10.2); CREATININE FOR GFR 1.67 MG/DL (0.55-1.30); GLOMERULAR FILTRATION RATE 31.4 (>32); POTASSIUM SERUM 3.7 MEQ/L (3.5-5.1)
[2020-04-17] MEDS: CALCIUM/VITAMIN D 500 MG TAB PO SCH (09:38)
[2020-04-17] MEDS: ASCORBIC ACID 250 MG TAB PO SCH (09:38)
[2020-04-17] MEDS: PANTOPRAZOLE 40MG TAB (PROTONIX) PO SCH (09:38)
[2020-04-17] MEDS: MULTIVITAMINS/MINERALS THERAP 1 TAB PO SCH (09:38)
[2020-04-17] MEDS: PILOCARPINE 1% OPHTH SOLN 15 ML OS SCH (09:39)
[2020-04-17] MEDS: ENOXAPARIN 30MG/0.3ML SYRINGE (J1650 PER 10MG) SC SCH (09:43)
[2020-04-17] MEDS ORDERED: FOSFOMYCIN TROMETHAMINE 3 GM POWDER PACKET (MONUROL) PO ONE (12:00)
[2020-04-17] MEDS ORDERED: CARA1TAB6 PO (12:06)
--- NOTE | 2020-04-17 12:40 | DSES ---
DISCHARGE SUMMARY DATE OF ADMISSION: 04/15/2020 DATE OF DISCHARGE: 04/17/2020 PRIMARY DISCHARGE DIAGNOSIS: 1. Urinary tract infection. 2. Acute on chronic kidney disease Stage III. 3. Chronic bronchiectasis. 4. Ascending thoracic aortic dilatation 3.6 cm without saccular component. 5. Moderate pulmonary hypertension. 6. Cirrhosis of the liver. 7. Anemia of chronic disease. 8. Hiatal hernia. 9. Deconditioning. 10.History of adenomatous polyps. 11.History of erosive esophagitis and duodenal erosions. 12.GI bleed. 13.History of diastolic heart failure. 14.History of iron deficiency anemia. DISCHARGE MEDICATIONS: 1. Albuterol 2.5 q.i.d. as needed. 2. Vitamin C 250 daily. 3. Calcium with vitamin D one tablet daily. 4. Lasix 20 mg daily. 5. Multivitamin one tablet daily. 6. Protonix 40 daily. 7. [place] one drop OS q.i.d. 8. Carafate 1 gram q a.c./h.s. DISCHARGE INSTRUCTIONS: Immediate follow-up with primary care physician within five days of hospital discharge. HOSPITAL COURSE: This is an 79-year-old female admitted on 04/15/2020 with complaints of nausea, vomiting and weakness for one day with chills but denied any fever. She had intermittent diarrhea and constipation but denied any abdominal pain. In the ER, she was afebrile at 99.8, white count was 11.9, creatinine was 1.82. She was given IV fluids, 1.39 liters on admission, remained positive balance with improvement in her chronic kidney disease to 1.67. Urine culture grew out Klebsiella. Patient was treated with IV Ceftriaxone. She has multiple allergies to sulfa, cephalexin, doxycycline and Levaquin, therefore she was given fosfomycin prior to hospital discharge. Patient is discharged in stable condition and will be resumed back on all of her home medications. She will be sent home with home care. PHYSICAL EXAMINATION ON DISCHARGE: VITAL SIGNS: Temperature 97.8, pulse 89, respiratory rate 19, blood pressure 102/50, 94% two liters nasal cannula. GENERAL: The patient is awake, alert and oriented x3. Cachectic. LUNGS: Clear to auscultation. No wheezing, rales or rhonchi. HEART: S1 and S2. Sinus rhythm. ABDOMEN: Soft, nontender and nondistended. Positive bowel sounds. EXTREMITIES: No cyanosis, clubbing or pitting edema. DISCHARGE LABORATORY DATA: White count 7.8, hemoglobin 8.6, hematocrit 27, platelet count 100,000. Sodium 137, potassium 3.7, chloride 105, bicarbonate 28, BUN 23, creatinine 1.67, glucose of 96. Urine culture: Klebsiella urinary tract infection resistant to ampicillin, sensitive to Levaquin, Zosyn, Ceftriaxone. IMAGING STUDY: Chest CT 04/15/2020: Extensive cystic bronchiectasis throughout the left lung zone re-demonstrated and stable in appearance, multiple foci of cylindrical and cystic bronchiectasis in the right lung, extensive bilateral apical pleural parenchymal scarring with multiple irregular parenchymal opacities in the right upper lung zone which appear grossly stable, marked volume loss, left hemothorax and shift of the heart and mediastinal structures to the left. No significant change in interstitial markings to suggest edema, or otherwise, fusiform dilatation of the ascending thoracic aorta which measures 3.6 cm maximally with no saccular component. Pulmonary artery hypertension. Small to moderate hiatal hernia. Gallstone is present. Time spent on discharge: 30 minutes.
[2020-04-17] MEDS ORDERED: FUROSEMIDE 20 MG TAB PO ONE (13:00)
== END 2020-04-17 12:04 | disposition home health service (06) | DRG 690 ==
LOC: M ED 16:55 → M ED INP 22:18 → M MSPAV 04-16 02:18
PROVIDERS: ADMIT Internal Medicine; ATTEND General Practice
DX: N39.0 Urinary tract infection, site not specified (principal); E87.2 Acidosis; N17.9 Acute kidney failure, unspecified; A04.71 Enterocolitis due to Clostridium difficile, recurrent; I50.32 Chronic diastolic (congestive) heart failure; R53.1 Weakness; E86.0 Dehydration; J47.9 Bronchiectasis, uncomplicated; I77.810 Thoracic aortic ectasia; K44.9 Diaphragmatic hernia without obstruction or gangrene; K80.20 Calculus of gallbladder without cholecystitis without obstruction; M85.80 Other specified disorders of bone density and structure, unspecified site; D63.8 Anemia in other chronic diseases classified elsewhere; H40.9 Unspecified glaucoma; K74.60 Unspecified cirrhosis of liver; B96.1 Klebsiella pneumoniae [K. pneumoniae] as the cause of diseases classified elsewhere; N18.30 Chronic kidney disease, stage 3 unspecified; I27.20 Pulmonary hypertension, unspecified; K20.90 Esophagitis, unspecified without bleeding; Z79.899 Other long term (current) drug therapy; Z20.822 Contact with and (suspected) exposure to COVID-19; Z88.1 Allergy status to other antibiotic agents; Z88.2 Allergy status to sulfonamides; Z88.8 Allergy status to other drugs, medicaments and biological substances; Z87.01 Personal history of pneumonia (recurrent); Z98.41 Cataract extraction status, right eye; Z86.010 Personal history of colon polyps; Z98.42 Cataract extraction status, left eye

== ENCOUNTER → 2020-04-24 | Outpatient (REF) | payer MEDICARE ==
[~2020-04-24] MED LIST changes: +CARA1TAB6 PO; +FURO20TA2 PO
[2020-04-24 19:43] LABS: HEMATOCRIT 30.3 % (36.0-47.0); HEMOGLOBIN 9.3 g/dl (12.0-15.5); MEAN CORPUSCULAR HEMOGLOBIN 28.9 pg (27.0-33.0); MEAN CORPUSCULAR HGB CONC 30.7 g/dl (32.0-36.5); MEAN CORPUSCULAR VOLUME 94.1 fl (80.0-96.0); PLATELET COUNT, AUTOMATED 174 10^3/uL (150-450); RED BLOOD COUNT 3.22 10^6/uL (4.00-5.40); WHITE BLOOD COUNT 9.9 10^3/uL (4.0-10.0)
== END ==
LOC: M SFHCPLAZ 13:43
PROVIDERS: ATTEND Family Medicine
DX: R53.1 Weakness (principal); D63.8 Anemia in other chronic diseases classified elsewhere

== ENCOUNTER → 2020-07-30 | Outpatient (CLI) | payer MEDICARE ==
[~2020-07-30] MED LIST changes: +OMEP40CA4 PO; -OMEP40CA97 PO
--- NOTE | 2020-07-30 16:31 | REPPI ---
INDICATION: R04.02 HEMOPTYSIS COMPARISON: 04/15/2020 TECHNIQUE: PA and lateral. FINDINGS: Extensive bilateral pleuroparenchymal changes with cystic disease, fibrosis and scarring (left greater than right) again noted and similar to prior examination. Acute on chronic process cannot be excluded. IMPRESSION: Extensive cystic changes with fibrosis and chronic opacities similar to prior examination. Acute on chronic process cannot be excluded. <Electronically signed by Marcelo Chapin > 07/30/20 [id number]
== END ==
LOC: M PLAIMG 15:43
PROVIDERS: ATTEND Nurse Practitioner Family
DX: R04.2 Hemoptysis (principal)

== ENCOUNTER → 2020-07-30 | Outpatient (REF) | payer MEDICARE ==
[2020-07-30 17:30] LABS: BASO % 0.4 % (0.0-1.0); EOS # 0.4 10^3/uL (0.0-0.5); EOS % 5.3 % (0.0-3.0); HEMATOCRIT 34.6 % (36.0-47.0); HEMOGLOBIN 10.6 g/dl (12.0-15.5); LYMPH # 2.4 10^3/uL (1.5-5.0); LYMPH % 32.2 % (24.0-44.0); MEAN CORPUSCULAR HEMOGLOBIN 29.5 pg (27.0-33.0); MEAN CORPUSCULAR HGB CONC 30.6 g/dl (32.0-36.5); MEAN CORPUSCULAR VOLUME 96.4 fl (80.0-96.0); MONO # 0.8 10^3/uL (0.0-0.8); MONO % 10.3 % (2.0-8.0); NEUTROPHILS # 3.9 10^3/uL (1.5-8.5); NEUTROPHILS % 51.4 % (36.0-66.0); PLATELET COUNT, AUTOMATED 164 10^3/uL (150-450); RED BLOOD COUNT 3.59 10^6/uL (4.00-5.40); WHITE BLOOD COUNT 7.6 10^3/uL (4.0-10.0)
[2020-07-30 17:47] LABS: C REACTIVE PROTEIN QUANTITATIV 1.37 MG/DL (0.00-0.30)
[2020-07-30 17:56] LABS: ERYTHROCYTE SEDIMENTATION RATE 79 mm/hr (0-30)
== END ==
LOC: M SFHCPLAZ 15:41
PROVIDERS: ATTEND Nurse Practitioner Family
DX: R04.2 Hemoptysis (principal)

== ENCOUNTER → 2020-08-18 | Outpatient (CLI) | payer MEDICARE ==
[2020-08-18 09:59] LABS: ALBUMIN 2.9 GM/DL (3.2-5.2); ALT/SGPT 24 U/L (12-78); BILIRUBIN,DIRECT 0.2 MG/DL (0.0-0.2); BILIRUBIN,TOTAL 0.6 MG/DL (0.2-1.0); BLOOD UREA NITROGEN 24 MG/DL (7-18); CREATININE FOR GFR 1.71 MG/DL (0.55-1.30); GLOMERULAR FILTRATION RATE 30.6 (>32); TOTAL PROTEIN 7.9 GM/DL (6.4-8.2)
--- NOTE | 2020-08-18 10:27 | REP ---
INDICATION: CIRRHOSIS-LABS FIRST. COMPARISON: 03/19/2020. TECHNIQUE: Real-time sonographic evaluation of right upper quadrant performed. FINDINGS: Multiple gallstones are again seen in the gallbladder measuring up to 1.9 cm. There is mild gallbladder wall thickening up to 6 mm. There is no pericholecystic fluid. There is no intrahepatic or extrahepatic biliary dilatation, common bile duct measures 2 mm in maximum diameter. Liver demonstrates diffuse heterogeneous echotexture as seen on prior studies, compatible with diffuse fibrofatty infiltration of the liver. The previously noted 1.1 cm echogenic lesion in the right lobe of the liver is not seen on today's ultrasound. Visualized pancreas is grossly unremarkable. The right kidney demonstrates no hydronephrosis, with a normal size of 7.8 cm in length. No free fluid is seen. IMPRESSION: Multiple gallstones again seen in the gallbladder. There is mild gallbladder wall thickening. There is no biliary dilatation or free fluid. Diffuse fibrofatty infiltration of the liver. The previously noted 1.1 cm echogenic lesion in the right lobe of the liver is not seen on today's ultrasound. <Electronically signed by Vitor Machado > 08/18/20 [id number]
== END ==
LOC: M RAD 08:49
PROVIDERS: ATTEND Internal Medicine Gastroenterology
DX: K74.60 Unspecified cirrhosis of liver (principal)

== ENCOUNTER 2020-09-09 19:01 | Inpatient (IN) | payer MEDICARE ==
[~2020-09-09] VITALS: Ht 152.4 cm; Wt 47.3 kg
[2020-09-09] MEDS ORDERED: MIDO2.5T PO (19:28)
[2020-09-09] MEDS ORDERED: FERR1TAB8 PO (19:28)
[2020-09-09 22:38] LABS: BASO % 0.3 % (0.0-1.0); EOS % 0.1 % (0.0-3.0); HEMATOCRIT 34.2 % (36.0-47.0); HEMOGLOBIN 10.6 g/dl (12.0-15.5); LYMPH # 1.6 10^3/uL (1.5-5.0); LYMPH % 14.7 % (24.0-44.0); MEAN CORPUSCULAR HEMOGLOBIN 29.3 pg (27.0-33.0); MEAN CORPUSCULAR VOLUME 94.5 fl (80.0-96.0); MONO % 9.2 % (2.0-8.0); NEUTROPHILS # 8.1 10^3/uL (1.5-8.5); NEUTROPHILS % 75.3 % (36.0-66.0); PLATELET COUNT, AUTOMATED 124 10^3/uL (150-450); RED BLOOD COUNT 3.62 10^6/uL (4.00-5.40); WHITE BLOOD COUNT 10.8 10^3/uL (4.0-10.0)
[2020-09-09 23:11] LABS: ALBUMIN 2.7 GM/DL (3.2-5.2); ALT/SGPT 24 U/L (12-78); BILIRUBIN,DIRECT 0.3 MG/DL (0.0-0.2); BILIRUBIN,TOTAL 0.7 MG/DL (0.2-1.0); BLOOD UREA NITROGEN 26 MG/DL (7-18); CALCIUM LEVEL 8.5 MG/DL (8.8-10.2); CARBON DIOXIDE LEVEL 23 MEQ/L (21-32); CHLORIDE LEVEL 109 MEQ/L (98-107); CK-MB VALUE MASS < 1.0 NG/ML (<3.6); CPK CREATINE PHOSPHOKINASE 293 U/L (26-192); CREATININE FOR GFR 2.07 MG/DL (0.55-1.30); GLOMERULAR FILTRATION RATE 24.5 (>32); GLUCOSE, FASTING 99 MG/DL (70-100); MB/CK RELATIVE INDEX 0.34 (< OR =4); POTASSIUM SERUM 4.3 MEQ/L (3.5-5.1); SODIUM LEVEL 141 MEQ/L (136-145); TOTAL PROTEIN 7.7 GM/DL (6.4-8.2); TROPONIN I < 0.02 NG/ML (< 0.10)
[2020-09-10] MEDS ORDERED: IPRATROPIUM 0.5MG/ALBUTEROL 2.5MG INH SOL UD 3ML (DUONEB) NEB ONE (05:15)
[2020-09-10 05:44] LABS: NT-PRO BNP 2090 PG/ML (<450)
[2020-09-10 06:39] LABS: RSV AMPLIFICATION NEGATIVE (NEGATIVE)
--- NOTE | 2020-09-10 08:59 | REPVR ---
PROCEDURE INFORMATION: Exam: XR Chest Exam date and time: 09/10/2020 5:32 AM Age: 79 years old Clinical indication: Cough; Additional info: Cough, SOB TECHNIQUE: Imaging protocol: XR of the chest. Views: 1 view. COMPARISON: CR CHEST 2 VIEWS 07/30/2020 3:58 PM FINDINGS: Lungs: Redemonstration of severe cystic bronchiectasis of the left lung, with associated consolidation and volume loss of the left lung. Less severe bronchiectasis in the right lung, with associated interstitial scarring and mild patchy consolidation in the right lung apex, which appears unchanged. No new confluent consolidation is identified. Pleural spaces: Chronic blunting of the left costophrenic angle. Heart/Mediastinum: Cardiac silhouette is partially obscured. Stable right to left mediastinal shift. Bones/joints: Degenerative change of the spine. IMPRESSION: Essentially stable examination. Electronically signed by: Jennifer Mary On 09/10/2020 08:59:15 AM
[2020-09-10] MEDS: ASCORBIC ACID 250 MG TAB PO SCH (09:00)
[2020-09-10] MEDS ORDERED: MIDODRINE 2.5 MG TAB PO SCH (09:00)
[2020-09-10] MEDS ORDERED: PIPERACILLIN/TAZOBACTAM SOD 3.375 GM in D5W MINI-BAG PLUS 50 ML IV SCH (09:40)
[2020-09-10] MEDS ORDERED: ACETAMINOPHEN TAB 650MG DOSE (2X325MG) PO PRN (09:40)
[2020-09-10] MEDS ORDERED: RETA4000 SC (10:10)
--- NOTE | 2020-09-10 10:50 | REP ---
INDICATION: SOB / Cough COMPARISON: 04/15/2020 TECHNIQUE: Axial noncontrast images from the thoracic inlet to the upper abdomen with coronal and sagittal reformations. This CT examination was performed using the following dose reduction techniques: Automated exposure control, adjustment of mA and/or kv according to the patient's size, and use of iterative reconstruction technique. FINDINGS: left hemithorax demonstrates severe cystic bronchiectasis and areas of opacification in the remaining parenchyma essentially unchanged from prior examination. Right lung demonstrates severe, but less pronounced chronic interstitial changes, bronchiectasis, scarring, and scattered subpleural ill-defined small densities/opacities which remain relatively stable. No obvious new acute process identified. Mediastinal lymph nodes remain unchanged. Mediastinum demonstrates left-sided shift due to volume loss and is otherwise stable in appearance with atherosclerotic changes to the aorta and coronary arteries. No cardiomegaly or pericardial effusion. Moderate hiatal hernia again noted with air-filled distention to the esophagus. IMPRESSION: Findings are essentially unchanged as described above. Superimposed acute process cannot definitively be excluded and requires clinical observation and correlation. <Electronically signed by Marcelo Chapin > 09/10/20 [id number]
--- NOTE | 2020-09-10 10:54 | REP ---
INDICATION: LUQ pain COMPARISON: 04/16/2020 TECHNIQUE: Axial noncontrast images from the lung bases to the pubic symphysis with coronal and sagittal reformations. This CT examination was performed using the following dose reduction techniques: Automated exposure control, adjustment of mA and/or kv according to the patient's size, and use of iterative reconstruction technique. FINDINGS: Liver, spleen, pancreas, bilateral adrenal glands are normal. Cholelithiasis noted without acute cholecystitis. Kidneys demonstrate bilateral nephrolithiasis including 7 mm calculus in the left ureteropelvic junction, but no evidence for acute obstructive uropathy. Moderate hiatal hernia again noted. There is no evidence for bowel obstruction. There is mild focal mucosal thickening involving the ascending colon which may reflect element of colitis. Colonic and primarily sigmoid diverticulosis noted without acute diverticulitis. Pelvis demonstrates normal bladder and age-appropriate uterus/adnexa. No ascites. No free air. No adenopathy. No focal inflammatory stranding. Abdominal aorta without aneurysm. Musculoskeletal structures are intact and without acute osseous abnormality. IMPRESSION: 1. Findings suggesting colitis involving the ascending colon. 2. Nephrolithiasis and cholelithiasis again noted without acute obstructive uropathy or cholecystitis, respectively. 3. No ascites. No inflammatory stranding. No adenopathy. No free air. <Electronically signed by Marcelo Chapin > 09/10/20 [id number]
[2020-09-10] MEDS ORDERED: ALBUTEROL SULFATE 2.5 MG/0.5 ML INH NEB SOLN INH PRN (11:10)
[2020-09-10] MEDS: PIPERACILLIN/TAZOBACTAM SOD 2.25 GM in D5W MINI-BAG PLUS 50 ML IV SCH ×2 (12:15→18:28)
[2020-09-10] MEDS: PANTOPRAZOLE 40MG TAB (PROTONIX) PO SCH (12:15)
[2020-09-10] MEDS: MULTIVITAMINS/MINERALS THERAP 1 TAB PO SCH (12:16)
[2020-09-10] MEDS: FERROUS SULFATE 325MG TAB PO SCH (12:16)
[2020-09-10] MEDS: PILOCARPINE 1% OPHTH SOLN 15 ML OS SCH ×3 (13:00→20:52)
--- NOTE | 2020-09-10 14:03 | HPEPDOC ---
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 Patient reported that on she had received a dose of Retacrit (Epoetin alpha) from her traffic analyst. Patient felt fine on the day, and the subsequent day. However, over the weekend shes been noting progressive cough with yellow phlegm and associated shortness of breath. Patient denies any chest pain but did report chills. She denies any recent fevers. Patient has not spent any nausea, vomiting, abdominal pain or constipation. Reports that she has experienced some diarrhea yesterday, described as a loose bowel movement. Patient reports her appetite has been decreased, but is unsure of any changes in her weight. 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 diff (2019) Hx of Gallstone pancreatitis Hx of GI bleed Erosive esophagitis / GERD Past Surgical History: Bilateral cataracts s/p extraction Right ankle fracture Colonoscopies / EGDs Laser eye repair 2017 Allergies: See below Medications: See below Family History: - Mother with a history of colon cancer Brother with history of lung cancer Social History: - Denies the use of alcohol, tobacco or illicit drugs - Denies recent travel or sick contacts - Lives with - Occupation; use to work at [employer] Review of Systems: 10 point review of systems complete, all negative otherwise stated in HPI Physical exam: - Vitals: BP [118/57], HR [74], RR [18], Sat [98%NC2L], Temp [97.9F] - General: Lying in bed, Speaking in full sentences, AAOx3 - HEENT: NC, AT, PERRLA, R pupil with defect - CVS: RRR, +S1S2 - Lungs: Fair air entry bilaterally, Rhonchi appreciated at KAYDEN, no wheezing / crackles - Abdomen: Soft, Non-distended, Mild tenderness in LUQ - Extremities: No lower extremity edema, No calf tenderness - Neuro: No focal motor or sensory deficit - Skin: No visible rashes Labs: See below Imaging: CXR 09/10: Essentially stable examination. EKG: See below Assessment and Plan: Productive cough / Shortness breath / Chills - likely 2/2 pneumonia - Has been experiencing symptoms over last 3 days - Hx of Bronchiectasis (w/ Pseudomonas colonization) - Physical reveals evidence of rhonchi left upper lung field - Patient is saturating well on room air - Mild leukocytosis - Imaging noted above - Will check blood cultures / sputum cultures / procalcitonin / MRSA screen - Will check CT chest - Will start Zosyn (re: Pseudomonas history) - Will start chest PT / Incentive spirometry / Acapella LUQ tenderness - Will get CT abdomen / pelvis Weakness - possibly 2/2 infection, possibly 2/2 deconditioning - See above - Will start PT and OT Chronic COPD 2/2 second hand smoke exposure - No evidence of exacerbation - c/w inhaled therapy as ordered Chronic Diastolic CHF - Physical does not reveal any evidence of fluid overload - BNP slightly elevated - Will get ECHO - Will hold Furosemide for now Hypotension - c/w Midodrine Acute on Chronic anemia / Iron deficiency - c/w Ferrous sulfate CKD3 - Cr slightly higher than baseline - Will hold Furosemide for now Osteopenia - Will resume Vitamin D / Calcium supplementation on discharge Glaucoma - c/w Pilocarpine Hx of C. diff (2019) Hx of Gallstone pancreatitis Hx of GI bleed Erosive esophagitis / GERD - c/w Protonix DVT prophylaxis - Will start Heparin Vital Signs Vital Signs Date Time Temp Pulse Resp B/P (MAP) Pulse Ox O2 Delivery O2 Flow Rate FiO2 09/10/20 12:51 74 18 98 Nasal Cannula 2.0 09/10/20 10:51 118/57 (77) 09/10/20 03:46 97.9 Laboratory Data Labs 24H Laboratory Tests 2 09/09/20 22:25: Immature Granulocyte % (Auto) 0.4, Neutrophils (%) (Auto) 75.3H, Lymphocytes (%) (Auto) 14.7L, Monocytes (%) (Auto) 9.2H, Eosinophils (%) (Auto) 0.1, Basophils (%) (Auto) 0.3, Neutrophils # (Auto) 8.1, Lymphocytes # (Auto) 1.6, Monocytes # (Auto) 1.0H, Eosinophils # (Auto) 0.0, Basophils # (Auto) 0.0, Nucleated Red Blood Cells % (auto) 0.0, Anion Gap 9, Glomerular Filtration Rate 24.5L, Calcium Level 8.5L, Total Bilirubin 0.7, Direct Bilirubin 0.3H, Aspartate Amino Transf (AST/SGOT) 35, Alanine Aminotransferase (ALT/SGPT) 24, Alkaline Phosphatase 96, Total Creatine Kinase 293H, Creatine Kinase MB < 1.0, Creatine Kinase MB Relative Index 0.34, Troponin I < 0.02, OW-Fws-F-Type Natriuretic Peptide 2090H, Total Protein 7.7, Albumin 2.7L, Albumin/Globulin Ratio 0.5L, Thyroid Stim ulating Hormone (TSH) 1.010 09/10/20 05:28: Coronavirus (COVID-19)(PCR) NEGATIVE, Influenza Type A (RT-PCR) NEGATIVE, Influenza Type B (RT-PCR) NEGATIVE, Respiratory Syncytial Virus (PCR) NEGATIVE 09/10/20 10:04: Lactic Acid Level 1.4, Procalcitonin 2.36 09/10/20 12:39: CBC/BMP Laboratory Tests 09/09/20 22:25 Microbiology Microbiology 09/10/20 Gram Stain, Received Pending 09/10/20 Sputum Culture, Received Pending 09/10/20 Blood Culture, Received Pending 09/10/20 Blood Culture, Received Pending Home Medications Scheduled Ascorbic Acid (Vitamin C) 250 Mg Tab, 250 MG PO DAILY Calcium Carbonate/Vitamin D3 (Oyster Shell 500-Vit D3 200 Tb) 1 Tab Tab, 1 TAB PO DAILY Epoetin Juan C-Epbx (Retacrit) 4,000 Unit/1 Ml Vial, 4,000 UNIT SC Q2WK THURSDAYS Ferrous Sulfate (Ferrous Sulfate) 325 Mg Tablet, 325 MG PO DAILY Furosemide (Furosemide) 40 Mg Tablet, 20 MG PO DAILY Midodrine HCl (Midodrine HCl) 2.5 Mg Tablet, 2.5 MG PO TID Multivitamins (Thera M Plus Tablet) 1 Tab Tab, 1 TAB PO DAILY Pantoprazole Sodium (Pantoprazole Sodium) 40 Mg Tablet.dr, 40 MG PO DAILY Pilocarpine HCl (Pilocarpine HCl) 1% 15ML Drops, 1 DROP OS QID Scheduled PRN Albuterol Sulf (Albuterol Sulfate) 2.5 Mg/3 Ml Nebu, 2.5 MG INH QID PRN for SHOR TNESS OF BREATH Allergies Coded Allergies: bimatoprost (Verified Allergy, Intermediate, EYE REDNESS, 12/05/18) cephalexin (Unverified Allergy, Unknown, 07/20/19) doxycycline (Unverified Allergy, Unknown, 07/20/19) levofloxacin (Unverified Allergy, Unknown, 07/20/19) latanoprost (Verified Adverse Reaction, Intermediate, EYE PAIN HEART RAC ING, 07/20/19) travoprost (Verified Adverse Reaction, Intermediate, EYE PAIN HEART RACING, 07/20/19) Sulfa (Sulfonamide Antibiotics) (Verified Adverse Reaction, Mild, GI ISSUES, 07/20/19) brimonidine (Verified Adverse Reaction, Mild, 07/20/19) diclofenac (Verified Adverse Reaction, Mild, VOMITS, 07/20/19) dorzolamide (Verified Adverse Reaction, Mild, CONGESTED,COUGH, 07/20/19) moxifloxacin (Verified Adverse Reaction, Mild, DIARRHEA, 12/05/18) timolol (Verified Adverse Reaction, Mild, CONGESTED,COUGH, 07/20/19) SHEKHAR CARRILLO MD Sep 10, 2020 14:03
[2020-09-10 14:05] LABS: C REACTIVE PROTEIN QUANTITATIV 8.43 MG/DL (0.00-0.30)
[2020-09-10 14:15] VITALS: BP 124/50
[2020-09-10] MEDS: HEPARIN SOD (PORCINE) 5000UNITS/ML 1ML VIAL/SYRINGE SC SCH ×2 (14:29→20:52)
[2020-09-10] MEDS: hydrOXYzine 25 MG TAB PO PRN ×2 (16:29→23:51)
[2020-09-10] MEDS: MIDODRINE 2.5 MG TAB PO SCH (16:29)
--- NOTE | 2020-09-10 20:43 | ECGEPIP ---
[facility] - ED Test Date: 2020-09-09 Pat Name: MONA BAH Department: Room: - Gender: Female Frame Trimmer: : [id number] Requested By: RONNA Thomas Order Number: [id number] Reading MD: Mello Ball Measurements Intervals Sharon Rate: 80 P: 69 MD: 142 QRS: 66 QRSD: 68 T: 61 QT: 402 QTc: 463 Interpretive Statements Normal sinus rhythm NONSPECIFIC T WAVE ABNORMALITY(S) BASELINE ARTIFACT AFFECTS INTERPRETATION SIMILAR TO 04/15/20 Electronically Signed on 09-10-2020 20:42:33 EDT by Mello Ball
[2020-09-10 22:00] VITALS: BP 119/63
[2020-09-11] MEDS: PIPERACILLIN/TAZOBACTAM SOD 2.25 GM in D5W MINI-BAG PLUS 50 ML IV SCH ×3 (02:13→17:47)
[2020-09-11] MEDS: HEPARIN SOD (PORCINE) 5000UNITS/ML 1ML VIAL/SYRINGE SC SCH ×3 (05:17→20:11)
[2020-09-11 05:51] VITALS: BP 97/43
[2020-09-11 07:06] LABS: BASO % 0.2 % (0.0-1.0); EOS # 0.3 10^3/uL (0.0-0.5); EOS % 5.7 % (0.0-3.0); HEMATOCRIT 31.2 % (36.0-47.0); LYMPH # 1.3 10^3/uL (1.5-5.0); LYMPH % 23.1 % (24.0-44.0); MEAN CORPUSCULAR HEMOGLOBIN 29.8 pg (27.0-33.0); MEAN CORPUSCULAR HGB CONC 32.1 g/dl (32.0-36.5); MEAN CORPUSCULAR VOLUME 92.9 fl (80.0-96.0); MONO # 0.5 10^3/uL (0.0-0.8); MONO % 8.9 % (2.0-8.0); NEUTROPHILS # 3.5 10^3/uL (1.5-8.5); NEUTROPHILS % 61.7 % (36.0-66.0); PLATELET COUNT, AUTOMATED 116 10^3/uL (150-450); RED BLOOD COUNT 3.36 10^6/uL (4.00-5.40); WHITE BLOOD COUNT 5.6 10^3/uL (4.0-10.0)
[2020-09-11 07:34] LABS: ALBUMIN 2.3 GM/DL (3.2-5.2); BILIRUBIN,TOTAL 0.6 MG/DL (0.2-1.0); C REACTIVE PROTEIN QUANTITATIV 9.36 MG/DL (0.00-0.30); CALCIUM LEVEL 8.5 MG/DL (8.8-10.2); CREATININE FOR GFR 2.24 MG/DL (0.55-1.30); GLOMERULAR FILTRATION RATE 22.4 (>32); MAGNESIUM LEVEL 2.1 MG/DL (1.8-2.4); POTASSIUM SERUM 3.9 MEQ/L (3.5-5.1); TOTAL PROTEIN 6.7 GM/DL (6.4-8.2)
[2020-09-11] MEDS: MIDODRINE 2.5 MG TAB PO SCH ×3 (08:22→15:23)
[2020-09-11] MEDS: MULTIVITAMINS/MINERALS THERAP 1 TAB PO SCH (08:22)
[2020-09-11] MEDS: PANTOPRAZOLE 40MG TAB (PROTONIX) PO SCH (08:22)
[2020-09-11] MEDS: FERROUS SULFATE 325MG TAB PO SCH (08:22)
[2020-09-11] MEDS: ASCORBIC ACID 250 MG TAB PO SCH (08:22)
[2020-09-11] MEDS: PILOCARPINE 1% OPHTH SOLN 15 ML OS SCH ×4 (08:23→20:10)
--- NOTE | 2020-09-11 10:23 | IPNPDOC ---
Text Note Date of Service The patient was seen on 09/11/20. 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 Patient has noted progressive cough with yellow phlegm and associated shortness of breath. Patient was admitted to hospital service for further evaluation and treatment. Patient was seen and examined at the bedside. Patient was that she feels better this morning. Denies any chest pain, or palpitations. Has reported a productive cough and still experiences some SOB. Denies any nausea, vomiting, abdominal pain, diarrhea, or urinary discomfort Objective: Vitals (See below) General: Lying in bed, appears comfortable, AAOx3 HEENT: NC, AT CVS: +S1S2 Lungs: Air entry is fair bilaterally. Rhonchi are appreciated at left upper lung field Abdomen: Soft, ND, NT Extremities: No evidence of edema, - Calf tenderness Imaging: CXR 09/10: Essentially stable examination. CT abdomen / pelvis 09/11: 1. Findings suggesting colitis involving the ascending colon. 2. Nephrolithiasis and cholelithiasis again noted without acute obstructive uropathy or cholecystitis, respectively. 3. No ascites. No inflammatory stranding. No adenopathy. No free air. CT chest 09/11: Findings are essentially unchanged as described above. Superimposed acute process cannot definitively be excluded and requires clinical observation and correlation. Assessment and plan: Productive cough / Shortness breath / Chills - likely 2/2 pneumonia - Has been experiencing symptoms over last 3 days - Hx of Bronchiectasis (w/ Pseudomonas colonization) - Physical with rhonchi appreciated - Patient is currently on 2 L of nasal cannula oxygen - Mild leukocytosis - Imaging noted above - Blood cultures / sputum cultures 09/10: Pending - Procalcitonin elevated - MRSA screen 09/10: Negative - c/w Zosyn (Day #2) - c/w chest PT / Incentive spirometry / Acapella LUQ tenderness - CT abdomen / pelvis with evidence of colitis - c/w Antibiotics (see above) Weakness - possibly 2/2 infection, possibly 2/2 deconditioning - See above - c/w PT and OT Chronic COPD 2/2 second hand smoke exposure - No evidence of exacerbation - c/w inhaled therapy as ordered Chronic Diastolic CHF - Physical does not reveal any evidence of fluid overload - BNP slightly elevated - ECHO pending - Will hold Furosemide for now Hypotension - c/w Midodrine Acute on Chronic anemia / Iron deficiency - c/w Ferrous sulfate CKD3 - Cr has increased compared to yesterday - Will continue to hold Furosemide for now Osteopenia - Will resume Vitamin D / Calcium supplementation on discharge Glaucoma - c/w Pilocarpine Hx of C. diff (2019) Hx of Gallstone pancreatitis Hx of GI bleed Erosive esophagitis / GERD - c/w Protonix DVT prophylaxis - Will c/w Heparin Disposition: - Awaiting clinical improvement VS,Mel, I+O VS, eMl I+O Laboratory Tests 09/11/20 06:22 Vital Signs Date Time Temp Pulse Resp B/P (MAP) Pulse Ox O2 Delivery O2 Flow Rate FiO2 09/11/20 05:51 98.1 86 20 97/43 (61) 93 Nasal Cannula 2.0 I&O- Last 24 Hours up to 6 AM 09/11/20 06:00 Intake Total 400 ml Balance 400 ml SHEKHAR CARRILLO MD Sep 11, 2020 10:23
--- NOTE | 2020-09-11 10:38 | REP ---
INDICATION: Hypoxia / Cough. COMPARISON: Comparison chest x-ray September 10, 2020. TECHNIQUE: Portable upright AP chest radiograph. FINDINGS: There is diffuse interstitial lung disease throughout the right lung unchanged. There is extensive volume loss and consolidation with air cyst formation in the left lung. These findings are unchanged from yesterday's radiograph.. Cardiac size is difficult to gauge as before. No pleural effusion. No acute bony abnormality. IMPRESSION: Severe cystic bronchiectasis throughout the left lung with volume loss the left lung and consolidation in the upper half of the left hemithorax unchanged. Diffuse interstitial lung disease on the right also unchanged. <Electronically signed by Trav Sullivan > 09/11/20 [id number]
[2020-09-11 14:00] VITALS: BP 133/63
[2020-09-11 16:17] LABS: C REACTIVE PROTEIN QUANTITATIV 8.76 MG/DL (0.00-0.30); CALCIUM LEVEL 8.3 MG/DL (8.8-10.2); CREATININE FOR GFR 2.17 MG/DL (0.55-1.30); GLOMERULAR FILTRATION RATE 23.2 (>32)
[2020-09-11] MEDS: hydrOXYzine 25 MG TAB PO PRN (20:11)
[2020-09-11 20:23] VITALS: BP 88/42
[2020-09-11 21:30] VITALS: BP 97/37
--- NOTE | 2020-09-11 23:57 | ECHO ---
ECHOCARDIOGRAM DATE OF PROCEDURE: 09/11/2020 Age: 79 Gender: Female Height: Weight: REFERRING PHYSICIAN: Dr. Marty Ochoa PATIENT LOCATION: Room 5137 REASON FOR TESTING: Shortness of breath 2D MEASUREMENTS: IVS 0.69 cm LV 4.0 cm LVPW 1.1 cm LA 3.3 cm Aorta 3.1 cm DOPPLER MEASUREMENT Peak velocity across the aortic valve 1.6 m/s Peak velocity across the LVOT 0.99 m/s Mitral E 0.72 Mitral A 1.0 with a ratio of 0.7 Maximum tricuspid valve velocity 2.5 m/s 2D COMMENTS: 1. Normal left ventricular size, wall thickness, and normal global left ventricular systolic function. Estimated left ventricular systolic ejection fraction is 60 to 65%. 2. Normal left atrium. Normal right atrium and right ventricle. 3. The atrial septum appeared to be normal without evidence of defect or shunt. 4. Normal aortic root. 5. Trace pericardial effusion noted, no evidence of cardiac tamponade. 6. Mildly calcified aortic valve with normal leaflet excursion. Mildly calcified mitral annulus with normal anterior mitral valve leaflet motion. Normal tricuspid valve and pulmonic valve. 7. The inferior vena cava was not well visualized. DOPPLER: It detects trace mitral regurgitation, mild tricuspid regurgitation. The calculated pulmonary artery systolic pressure varies between 30 to 40 mmHg. Abnormal relaxation pattern was noted across the mitral valve leaflets as well as the mitral valve annulus, consistent with features of grade 1 left ventricular diastolic dysfunction. IMPRESSION: 1. Normal global left ventricular systolic function. There are some features of grade 1 left ventricular diastolic dysfunction manifested by abnormal relaxation. 2. Aortic valve sclerosis with aortic stenosis. No aortic regurgitation. 3. Mitral annulus calcification with just mitral regurgitation. 4. Mildly tricuspid regurgitation with mild pulmonary hypertension. 5. Trace pericardial effusion.
[2020-09-12 02:00] VITALS: BP 97/37
[2020-09-12] MEDS: PIPERACILLIN/TAZOBACTAM SOD 2.25 GM in D5W MINI-BAG PLUS 50 ML IV SCH ×3 (02:27→18:48)
[2020-09-12 05:11] VITALS: BP 102/52
[2020-09-12] MEDS: HEPARIN SOD (PORCINE) 5000UNITS/ML 1ML VIAL/SYRINGE SC SCH ×3 (05:50→21:26)
[2020-09-12 06:31] LABS: BASO % 0.3 % (0.0-1.0); EOS # 0.4 10^3/uL (0.0-0.5); HEMATOCRIT 35.1 % (36.0-47.0); LYMPH # 1.7 10^3/uL (1.5-5.0); MEAN CORPUSCULAR HEMOGLOBIN 29.5 pg (27.0-33.0); MEAN CORPUSCULAR HGB CONC 31.3 g/dl (32.0-36.5); MEAN CORPUSCULAR VOLUME 94.1 fl (80.0-96.0); MONO # 0.6 10^3/uL (0.0-0.8); MONO % 8.7 % (2.0-8.0); NEUTROPHILS # 3.7 10^3/uL (1.5-8.5); NEUTROPHILS % 57.4 % (36.0-66.0); PLATELET COUNT, AUTOMATED 120 10^3/uL (150-450); RED BLOOD COUNT 3.73 10^6/uL (4.00-5.40); WHITE BLOOD COUNT 6.5 10^3/uL (4.0-10.0)
[2020-09-12 07:02] LABS: ALBUMIN 2.3 GM/DL (3.2-5.2); BILIRUBIN,TOTAL 0.4 MG/DL (0.2-1.0); C REACTIVE PROTEIN QUANTITATIV 7.45 MG/DL (0.00-0.30); CALCIUM LEVEL 8.2 MG/DL (8.8-10.2); CREATININE FOR GFR 2.11 MG/DL (0.55-1.30); MAGNESIUM LEVEL 2.2 MG/DL (1.8-2.4); TOTAL PROTEIN 6.7 GM/DL (6.4-8.2)
[2020-09-12] MEDS: MIDODRINE 2.5 MG TAB PO SCH ×3 (08:30→15:18)
[2020-09-12] MEDS: PANTOPRAZOLE 40MG TAB (PROTONIX) PO SCH (08:31)
[2020-09-12] MEDS: PILOCARPINE 1% OPHTH SOLN 15 ML OS SCH ×4 (08:31→21:27)
[2020-09-12] MEDS: FERROUS SULFATE 325MG TAB PO SCH (08:31)
[2020-09-12] MEDS: MULTIVITAMINS/MINERALS THERAP 1 TAB PO SCH (08:31)
--- NOTE | 2020-09-12 10:25 | IPNPDOC ---
Text Note Date of Service The patient was seen on 09/12/20. 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 Patient has noted progressive cough with yellow phlegm and associated shortness of breath. Patient was admitted to hospital service for further evaluation and treatment. Patient was seen and examined at the bedside. Denies any CP or palpitations. Reports that her breathing is doing relatively fine. Still reports a cough. Denies any abdominal pain, N/V, C or urinary discomfort. Report some loose bowel movements, nursing staff is reported green/mushy. Objective: Vitals (See below) General: Patient was seen sitting up in bed, comfortable, not in any acute distress, is awake, alert, oriented 3 HEENT: Normocephalic and atraumatic CVS: +S1S2 Lungs: Air entry appears to be fair bilaterally, his morning does not appear to be any wheezing Abdomen: Abdomen remains soft without any distention or tenderness Extremities: Lower extremities again do not reveal any edema Imaging: CXR 09/10: Essentially stable examination. CT abdomen / pelvis 09/11: 1. Findings suggesting colitis involving the ascending colon. 2. Nephrolithiasis and cholelithiasis again noted without acute obstructive uropathy or cholecystitis, respectively. 3. No ascites. No inflammatory stranding. No adenopathy. No free air. CT chest 09/11: Findings are essentially unchanged as described above. Superimposed acute process cannot definitively be excluded and requires clinical observation and correlation. ECHO 09/11: 1. Normal global left ventricular systolic function. There are some features of grade 1 left ventricular diastolic dysfunction manifested by abnormal relaxation. 2. Aortic valve sclerosis with aortic stenosis. No aortic regurgitation. 3. Mitral annulus calcification with just mitral regurgitation. 4. Mildly tricuspid regurgitation with mild pulmonary hypertension. 5. Trace pericardial effusion. Assessment and plan: Productive cough / Shortness breath / Chills - likely 2/2 Pseudomonas pneumonia - Has been experiencing symptoms over last 3 days - Hx of Bronchiectasis (w/ Pseudomonas colonization) - Physical with improvement elevation this morning - Patient is currently on 2 L of nasal cannula oxygen - s/p Leukocytosis - Imaging noted above - Blood cultures 09/10: No growth at 24 hours - Sputum cultures 09/10: Pseudomonas Aeruginosa - MRSA screen 09/10: Negative - c/w Zosyn (Day #3) - c/w chest PT / Incentive spirometry / Acapella Abdominal tenderness - possibly 2/2 colitis - Patient reports some loose bowel movements - Physical with improvement noted - CT abdomen / pelvis with evidence of colitis - c/w Antibiotics (see above) - Will start probiotics Weakness - possibly 2/2 infection, possibly 2/2 deconditioning - See above - c/w PT and OT - recommending home with services on discharge Chronic COPD 2/2 second hand smoke exposure - No evidence of exacerbation - c/w inhaled therapy as ordered Chronic Diastolic CHF - Physical does not reveal any evidence of fluid overload - BNP slightly elevated - ECHO noted above - Will hold Furosemide for now Hypotension - c/w Midodrine Acute on Chronic anemia / Iron deficiency - c/w Ferrous sulfate CKD3 - Cr still higher than baseline - Patient has reported some loose bowel movements; possibly prerenal in etiology - Will continue to hold Furosemide for now - Will consult nephrology Osteopenia - Will resume Vitamin D / Calcium supplementation on discharge Glaucoma - c/w Pilocarpine Hx of C. diff (2019) Hx of Gallstone pancreatitis Hx of GI bleed Erosive esophagitis / GERD - c/w Protonix DVT prophylaxis - c/w Heparin Disposition: - Awaiting clinical improvement VS,Mel, I+O VSMel I+O Laboratory Tests 09/11/20 15:37 09/12/20 06:07 Vital Signs Date Time Temp Pulse Resp B/P (MAP) Pulse Ox O2 Delivery O2 Flow Rate FiO2 09/12/20 09:46 2.0 09/12/20 05:11 98.6 79 20 102/52 (69) 97 Room Air I&O- Last 24 Hours up to 6 AM 09/12/20 06:00 Intake Total 480 ml Balance 480 ml SHEKHAR CARRILLO MD Sep 12, 2020 10:25
[2020-09-12] MEDS: ASCORBIC ACID 250 MG TAB PO SCH (10:36)
[2020-09-12] MEDS: LACTOBACILLUS ACIDOPHILUS CAP (BACID) PO SCH ×2 (12:24→17:07)
--- NOTE | 2020-09-12 13:04 | CR ---
CONSULTATION DATE: 09/12/2020 REQUESTING PHYSICIAN: SHEKHAR CARRILLO MD REASON FOR CONSULTATION: Acute kidney injury superimposed on chronic kidney disease in this lady with multiple chronic medical problems and pneumonia. HISTORY OF PRESENT ILLNESS: Mrs. Miller is an 79-year-old female with a known history of chronic bronchiectasis, dialysis congestive heart failure, chronic kidney disease and anemia. She has been receiving Retacrit as an outpatient and her anemia has improved. Her baseline creatinine is about 1.7 mg/dl. She came to the Emergency Room due to generalized weakness which the patient initially felt was caused by the Retacrit injections. She was found to have pneumonia on her chest imaging. She is currently being treated with Zosyn. A Nephrology consultation was requested as the patient has had a decline in her kidney function on admission. PAST MEDICAL HISTORY: 1. History of chronic bronchiectasis with pseudomonas colonization. 2. History of COPD and significant pulmonary scarring. 3. Diastolic congestive heart failure. 4. History of anemia. 5. History of chronic kidney disease with a baseline creatinine of about 1.7. 6. History of osteopenia. 7. History of glaucoma. 8. History of C. Diff colitis in the past. 9. History of gallstones. 10.History of kidney stones. 11.History of GI bleed. 12.History of gastroesophageal reflux disease. PAST SURGICAL HISTORY: 1. Bilateral cataract surgery. 2. Right ankle fracture. 3. Colonoscopy and EGDs. 4. Laser eye surgery. HOME MEDICATIONS: 1. Retacrit 4000 units every two weeks. 2. Vitamin C 250 mg daily. 3. Calcium with vitamin D one tablet daily. 4. Ferrous sulfate 325 mg daily. 5. Furosemide 20 mg daily. 6. Multivitamin one tablet daily. 7. Pantoprazole 40 mg daily. 8. Pilocarpine eyedrops 1% q.i.d. 9. She also uses Albuterol inhaler as needed. ALLERGIES: Patient has multiple drug allergies including Doxycycline, Levothyroxine, Cephalexin, Sulfa, Pamelor, Diclofenac, Bimatoprost and Travoprost. PERSONAL AND SOCIAL HISTORY: Patient is a former smoker. She lives with her . FAMILY HISTORY: Noncontributory. REVIEW OF SYSTEMS: She has significant cough but denies any fever or chills. She developed generalized weakness and difficulty ambulating a day after her last Retacrit injection. Ears and nose are unremarkable. She denies any headache. Cardiovascular system is significant for a history of diastolic congestive heart failure. She denies any chest pain. Respiratory system is significant for COPD and bronchiectasis. She has a significant cough at present. GI system is significant for a poor appetite. She denies any vomiting or diarrhea. She has a remote history of C. Diff colitis. system is negative for dysuria or hematuria. She does have a history of kidney stones but is asymptomatic at present. Endocrine system: Negative for diabetes or thyroid problems. Hematological system is significant for anemia of chronic kidney disease. Neurological system is negative for seizures or stroke. PHYSICAL EXAMINATION: VITAL SIGNS: Temperature is 98.6 degrees Fahrenheit, heart rate is 80 per minute and respiratory rate is 20 per minute. Blood pressure is 102/52 mmHg and oxygen saturation is 97% on room air. HEENT: Head is atraumatic. She is chronically ill-looking and emaciated. She weighs only about 47 kg. There is no oral thrush or ulcers. NECK: Neck veins are not abnormally distended. HEART: Heart sounds are regular. LUNGS: Bilateral rhonchi and diminished breath sounds. ABDOMEN: Soft and nontender. Bowel sounds are normal. EXTREMITIES: Without any cyanosis or clubbing. NEUROLOGIC: She is awake and at her baseline mentation. SKIN: No rash or ulcers. LABORATORY DATA: Her sputum culture has come back positive for pseudomonas aeruginosa. WBC count on admission was 10.8 and has come down to 6.5, hemoglobin is 11.0 and hematocrit is 35. Sodium is 142 and potassium is 3.9. Yesterday, her creatinine was 2.24 and today it is 2.11. BUN is 30. C-reactive protein was 9.3 yesterday and it has come down to 7.45 today. PROBLEMS: 1. Acute kidney injury superimposed on chronic kidney disease, most likely related to pneumonia and gradually improving already. She is currently not on any nephrotoxic medications. She is not on an NATALIIA inhibitor or angiotensin receptor chava. I would recommend to hold off on her diuretic. 2. Congestive heart failure. She has a known history of diastolic congestive heart failure but seems clinically well-compensated. I would recommend to continue to hold her diuretic. 3. Anemia, her anemia is stable and improved with Retacrit therapy. She is currently on oral iron supplement which should continue. 4. Hypotension. Blood pressure has been low and she was placed on low dose Midodrine recently, it has helped and continued with Midodrine 2.5 mg three times a day. 5. Weakness, most likely her weakness is not related to hematocrit but to her pneumonia. She is currently on an antibiotic and seems to be improving. Thank you for involving me in the care of Mrs. Miller. Our Nephrology Service will follow her along with you.
[2020-09-12 14:00] VITALS: BP 106/66
[2020-09-12 22:00] VITALS: BP 110/63
[2020-09-13] MEDS: PIPERACILLIN/TAZOBACTAM SOD 2.25 GM in D5W MINI-BAG PLUS 50 ML IV SCH (02:55)
[2020-09-13 05:48] VITALS: BP 102/40
[2020-09-13] MEDS: HEPARIN SOD (PORCINE) 5000UNITS/ML 1ML VIAL/SYRINGE SC SCH ×4 (05:56→21:05)
[2020-09-13 06:38] LABS: BASO % 0.3 % (0.0-1.0); EOS # 0.5 10^3/uL (0.0-0.5); EOS % 4.4 % (0.0-3.0); HEMATOCRIT 35.1 % (36.0-47.0); HEMOGLOBIN 10.8 g/dl (12.0-15.5); LYMPH # 2.4 10^3/uL (1.5-5.0); LYMPH % 23.2 % (24.0-44.0); MEAN CORPUSCULAR HEMOGLOBIN 29.3 pg (27.0-33.0); MEAN CORPUSCULAR HGB CONC 30.8 g/dl (32.0-36.5); MEAN CORPUSCULAR VOLUME 95.4 fl (80.0-96.0); MONO # 0.9 10^3/uL (0.0-0.8); MONO % 8.3 % (2.0-8.0); NEUTROPHILS # 6.6 10^3/uL (1.5-8.5); PLATELET COUNT, AUTOMATED 137 10^3/uL (150-450); RED BLOOD COUNT 3.68 10^6/uL (4.00-5.40); WHITE BLOOD COUNT 10.5 10^3/uL (4.0-10.0)
[2020-09-13 07:12] LABS: ALBUMIN 2.3 GM/DL (3.2-5.2); BILIRUBIN,TOTAL 0.4 MG/DL (0.2-1.0); C REACTIVE PROTEIN QUANTITATIV 6.77 MG/DL (0.00-0.30); CALCIUM LEVEL 7.9 MG/DL (8.8-10.2); CREATININE FOR GFR 1.91 MG/DL (0.55-1.30); GLOMERULAR FILTRATION RATE 26.9 (>32); MAGNESIUM LEVEL 2.3 MG/DL (1.8-2.4); POTASSIUM SERUM 4.1 MEQ/L (3.5-5.1); TOTAL PROTEIN 6.8 GM/DL (6.4-8.2)
[2020-09-13] MEDS: MULTIVITAMINS/MINERALS THERAP 1 TAB PO SCH (09:51)
[2020-09-13] MEDS: FERROUS SULFATE 325MG TAB PO SCH (09:51)
[2020-09-13] MEDS: PANTOPRAZOLE 40MG TAB (PROTONIX) PO SCH (09:51)
[2020-09-13] MEDS: ASCORBIC ACID 250 MG TAB PO SCH (09:51)
[2020-09-13] MEDS: MIDODRINE 2.5 MG TAB PO SCH ×3 (09:52→17:16)
[2020-09-13] MEDS: LACTOBACILLUS ACIDOPHILUS CAP (BACID) PO SCH ×3 (09:53→17:16)
[2020-09-13] MEDS: PILOCARPINE 1% OPHTH SOLN 15 ML OS SCH ×4 (09:54→20:33)
--- NOTE | 2020-09-13 10:20 | IPNPDOC ---
Text Note Date of Service The patient was seen on 09/13/20. 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 Patient has noted progressive cough with yellow phlegm and associated shortness of breath. Patient was admitted to hospital service for further evaluation and treatment. Patient was seen and examined at the bedside. Patient reports that she feels relatively better this morning. Denies any chest pain, shortness of breath, palpitations or any significant cough. Denies any nausea, vomiting, abdominal pain, diarrhea, or urinary discomfort. Objective: Vitals (See below) General: Patient sitting up in bed eating her breakfast appears to be co mfortable without any acute distress, is oriented to person, place and time HEENT: AT, NC CVS: +S1S2 Lungs: There appears to be fair air entry bilaterally without evidence of wheezing, crackles or rhonchi that were noted at the left mid lung field Abdomen: Soft without distention, mild tenderness noted Extremities: Extremities are without any edema Imaging: CXR 09/10: Essentially stable examination. CT abdomen / pelvis 09/11: 1. Findings suggesting colitis involving the ascending colon. 2. Nephrolithiasis and cholelithiasis again noted without acute obstructive uropathy or cholecystitis, respectively. 3. No ascites. No inflammatory stranding. No adenopathy. No free air. CT chest 09/11: Findings are essentially unchanged as described above. Superimposed acute process cannot definitively be excluded and requires clinical observation and correlation. ECHO 09/11: 1. Normal global left ventricular systolic function. There are some features of grade 1 left ventricular diastolic dysfunction manifested by abnormal relaxation. 2. Aortic valve sclerosis with aortic stenosis. No aortic regurgitation. 3. Mitral annulus calcification with just mitral regurgitation. 4. Mildly tricuspid regurgitation with mild pulmonary hypertension. 5. Trace pericardial effusion. Assessment and plan: Productive cough / Shortness breath / Chills - likely 2/2 Pseudomonas pneumonia - Has been experiencing symptoms over last 3 days; reported improvement this mooring - Hx of Bronchiectasis (w/ Pseudomonas colonization) - Physical with rales noted - c/w Supplemental oxygen at 2 L NC - s/p Leukocytosis - Imaging noted above - Sputum cultures 09/10: Pseudomonas Aeruginosa - MRSA screen 09/10: Negative - c/w Zosyn (Day #4) - c/w chest PT / Incentive spirometry / Acapella Positive blood culture 1 of 2 - possibly 2/2 contaminant - Blood cultures 09/10: 1 of 2 bottles positive for Gram positive rods - official result pending - c/w current antibiotics Abdominal tenderness - possibly 2/2 colitis - Abdomen reported loose bowel movements since starting probiotics - CT abdomen / pelvis with evidence of colitis - c/w Antibiotics (see above) - c/w probiotics Weakness - possibly 2/2 infection, possibly 2/2 deconditioning - See above - c/w PT and OT; possibly may require rehabilitation Chronic COPD 2/2 second hand smoke exposure - No evidence of exacerbation - c/w inhaled therapy as ordered Chronic Diastolic CHF - Physical does not reveal any evidence of fluid overload - BNP slightly elevated - ECHO noted above - Will hold Furosemide for now Hypotension - c/w Midodrine Acute on Chronic anemia / Iron deficiency - c/w Ferrous sulfate CKD3 - Cr still higher than baseline - Patient has reported some loose bowel movements; possibly prerenal in etiology - Will continue to hold Furosemide for now - Nephrology on consultation; appreciate their input Osteopenia - Will resume Vitamin D / Calcium supplementation on discharge Glaucoma - c/w [place] Hx of C. diff (2019) Hx of Gallstone pancreatitis Hx of GI bleed Erosive esophagitis / GERD - c/w Protonix DVT prophylaxis - c/w Heparin Disposition: - Awaiting clinical improvement VS,Mel, I+O VS, Mel, I+O Laboratory Tests 09/13/20 06:12 Vital Signs Date Time Temp Pulse Resp B/P (MAP) Pulse Ox O2 Delivery O2 Flow Rate FiO2 09/13/20 05:48 98.9 78 18 102/40 (60) 99 Nasal Cannula 2.0 I&O- Last 24 Hours up to 6 AM 09/13/20 05:59 Intake Total 340 ml Balance 340 ml SHEKHAR CARRILLO MD Sep 13, 2020 10:20
[2020-09-13 10:21] VITALS: BP 102/58
[2020-09-13] MEDS ORDERED: LevoFLOXacin 750 MG TABLET PO ONE (12:00)
--- NOTE | 2020-09-13 13:36 | IPN ---
NEPHROLOGY PROGRESS NOTE DATE: 09/13/2020 SUBJECTIVE: Patient was seen and examined at the bedside today morning. She was actually sitting up in the sofa. She still reports mild shortness of breath. Renal function continues to improve. Creatinine is down to 1.9 today. OBJECTIVE: VITAL SIGNS: Temperature 98.1 degrees Fahrenheit, blood pressure 102/58, pulse 80, respiratory rate 18, saturating 99% on nasal cannula at 2 liters. INTAKE AND OUTPUT: Urine output is not recorded. She has had incontinent voids. Weight in the bed scale is not available. PHYSICAL EXAMINATION: GENERAL: Patient is awake, alert, oriented times three, elderly lady, weak and frail. Otherwise, she is awake, laying in bed. HEAD AND NECK EXAM: Extraocular muscles intact. Pupils equally round and reactive to light. Mucous membranes are moist. Neck is supple. There is no jugular venous distention (JVD). CARDIOVASCULAR: S1, S2. Regular rate. No edema of the bilateral lower extremities. RESPIRATORY: Decreased breath sounds at the bases. Bilateral inspiratory and expiratory rhonchi in the lower lung zone and in the upper lung zone as well. ABDOMEN: Soft. Positive bowel sounds. Nontender. No organomegaly MUSCULOSKELETAL: No clubbing or cyanosis. Pulses are 2+. CENTRAL NERVOUS SYSTEM (FOUNTAIN ATTENDANT): No focal deficit. Power is 5/5 in all extremities. LABORATORY STUDIES: CBC showed WBC 10.5, hemoglobin 10.8, platelets 137. BMP showed sodium 142, potassium 4.1, chloride 115, bicarbonate 23, BUN 29, creatinine 1.9, it was 2.1 yesterday, calcium 7.9, magnesium 2.3. Albumin is 2.3. C-reactive protein (CRP) is 6.7, which is better than yesterday. It was 7.4 yesterday. CURRENT INPATIENT MEDICATIONS: Patient's medications were all reviewed by myself. She is currently not on any diuretics at this time and she was on intravenous (IV) Zosyn, which has been stopped, and she has been started on Levaquin. ASSESSMENT AND PLAN: 1. Acute renal failure superimposed on chronic kidney disease. Patient's renal function is stable and improving. She is currently not on any diuretics. Volume status is optimal. 2. Diastolic congestive heart failure. Patient does not need any diuretics. She will be evaluated on a daily basis for any need to restart her diuretics. 3. Acute chronic obstructive pulmonary disease (COPD) exacerbation with pseudomonas pneumonia. Patient was on IV Zosyn. She has been started on Levaquin. Clinically, she is getting better. 4. Hypotension. Patient continues to be on midodrine 2.5 mg by mouth three times a day. Blood pressures are optimal for now. 5. Anemia in chronic kidney disease. Patient's hemoglobin is 10.8, which is optimal. Continue oral iron.
[2020-09-13 14:00] VITALS: BP 114/45
[2020-09-13 20:33] VITALS: BP 118/49
[2020-09-14 01:07] VITALS: BP 101/48
[2020-09-14] MEDS: HEPARIN SOD (PORCINE) 5000UNITS/ML 1ML VIAL/SYRINGE SC SCH ×3 (06:18→21:45)
[2020-09-14 06:28] VITALS: BP 111/49
[2020-09-14 06:43] LABS: BASO % 0.3 % (0.0-1.0); EOS # 0.5 10^3/uL (0.0-0.5); EOS % 5.6 % (0.0-3.0); HEMATOCRIT 32.6 % (36.0-47.0); HEMOGLOBIN 10.2 g/dl (12.0-15.5); LYMPH # 2.2 10^3/uL (1.5-5.0); LYMPH % 25.3 % (24.0-44.0); MEAN CORPUSCULAR HGB CONC 31.3 g/dl (32.0-36.5); MEAN CORPUSCULAR VOLUME 95.9 fl (80.0-96.0); MONO # 0.8 10^3/uL (0.0-0.8); MONO % 9.4 % (2.0-8.0); NEUTROPHILS % 58.1 % (36.0-66.0); PLATELET COUNT, AUTOMATED 124 10^3/uL (150-450); WHITE BLOOD COUNT 8.7 10^3/uL (4.0-10.0)
[2020-09-14 07:05] LABS: BILIRUBIN,TOTAL 0.3 MG/DL (0.2-1.0); C REACTIVE PROTEIN QUANTITATIV 6.19 MG/DL (0.00-0.30); CALCIUM LEVEL 8.3 MG/DL (8.8-10.2); CREATININE FOR GFR 1.77 MG/DL (0.55-1.30); GLOMERULAR FILTRATION RATE 29.4 (>32); MAGNESIUM LEVEL 2.2 MG/DL (1.8-2.4); POTASSIUM SERUM 4.6 MEQ/L (3.5-5.1); TOTAL PROTEIN 6.8 GM/DL (6.4-8.2)
[2020-09-14] MEDS: MULTIVITAMINS/MINERALS THERAP 1 TAB PO SCH (09:32)
[2020-09-14] MEDS: PANTOPRAZOLE 40MG TAB (PROTONIX) PO SCH (09:32)
[2020-09-14] MEDS: MIDODRINE 2.5 MG TAB PO SCH ×3 (09:33→17:19)
[2020-09-14] MEDS: ASCORBIC ACID 250 MG TAB PO SCH (09:33)
[2020-09-14] MEDS: PILOCARPINE 1% OPHTH SOLN 15 ML OS SCH ×4 (09:33→21:46)
[2020-09-14] MEDS: FERROUS SULFATE 325MG TAB PO SCH (09:33)
[2020-09-14] MEDS: LACTOBACILLUS ACIDOPHILUS CAP (BACID) PO SCH ×3 (09:33→17:19)
[2020-09-14] MEDS ORDERED: RISATAB3 PO (09:38)
[2020-09-14] MEDS ORDERED: LEVO500T3 PO (09:38)
--- NOTE | 2020-09-14 13:23 | IPNPDOC ---
Text Note Date of Service The patient was seen on 09/14/20. 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 Patient has noted progressive cough with yellow phlegm and associated shortness of breath. Patient was admitted to hospital service for further evaluation and treatment. Patient was seen and examined at the bedside. Currently patient reports that she feels relatively well. Still reports a mild cough. Denies any significant some breath, tachycardia, nausea, vomiting, abdominal pain, has not experienced any further diarrhea. Occupational therapy is recommending patient to rehabilitation. Objective: Vitals (See below) General: Patient was sitting up in bed eating breakfast appears to be comfortable, not in any acute distress, is awake and alert HEENT: Is atraumatic, normocephalic CVS: +S1S2 Lungs: Air entry appears to be fair bilaterally. There are rhonchi appreciated at left mid lung field. No wheezing or crackles Abdomen: Abdomen remains soft without any distention or tenderness Extremities: No edema Imaging: CXR 09/10: Essentially stable examination. CT abdomen / pelvis 09/11: 1. Findings suggesting colitis involving the ascending colon. 2. Nephrolithiasis and cholelithiasis again noted without acute obstructive uropathy or cholecystitis, respectively. 3. No ascites. No inflammatory stranding. No adenopathy. No free air. CT chest 09/11: Findings are essentially unchanged as described above. Superimposed acute process cannot definitively be excluded and requires clinical observation and correlation. ECHO 09/11: 1. Normal global left ventricular systolic function. There are some features of grade 1 left ventricular diastolic dysfunction manifested by abnormal relaxation. 2. Aortic valve sclerosis with ? (dictation cut) ? aortic stenosis. No aortic regurgitation. 3. Mitral annulus calcification with just mitral regurgitation. 4. Mildly tricuspid regurgitation with mild pulmonary hypertension. 5. Trace pericardial effusion. Assessment and plan: Productive cough / Shortness breath / Chills - likely 2/2 Pseudomonas pneumonia - Clinically patient has reported improvement of her breathing and cough - Hx of Bronchiectasis (w/ Pseudomonas colonization) - Physical does reveal rhonchi at left mid lung field - c/w Supplemental oxygen at 2 L NC - s/p Leukocytosis - Imaging noted above - Sputum cultures 09/10: Pseudomonas Aeruginosa - MRSA screen 09/10: Negative - c/w Levofloxacin; c/w Zosyn (Antibiotic day #5) - c/w chest PT / Incentive spirometry / Acapella Positive blood culture 1 of 2 - possibly 2/2 contaminant - Blood cultures 09/10: 1 of 2 bottles positive for Gram positive rods - official result pending - c/w current antibiotics Abdominal tenderness - possibly 2/2 colitis - Abdomen reported loose bowel movements since starting probiotics - CT abdomen / pelvis with evidence of colitis - c/w Antibiotics (see above) - c/w probiotics Weakness - possibly 2/2 infection, possibly 2/2 deconditioning - See above - c/w PT and OT; possibly may require rehabilitation Chronic COPD 2/2 second hand smoke exposure - No evidence of exacerbation - c/w inhaled therapy as ordered Chronic Diastolic CHF - Physical does not reveal any evidence of fluid overload - BNP slightly elevated - ECHO noted above - Furosemide on hold; nephrology on consult Hypotension - c/w Midodrine Acute on Chronic anemia / Iron deficiency - c/w Ferrous sulfate CKD3 - Cr still higher than baseline - Patient has reported some loose bowel movements; possibly prerenal in etiology - Furosemide on hold - Nephrology on consultation; appreciate their input Osteopenia - Will resume Vitamin D / Calcium supplementation on discharge Glaucoma - c/w [place] Hx of C. diff (2019) Hx of Gallstone pancreatitis Hx of GI bleed Erosive esophagitis / GERD - c/w Protonix DVT prophylaxis - c/w Heparin Disposition: - Awaiting clinical improvement - Will transition to ALC status today; OT recommending rehab VS,Mel, I+O VS, Mel, I+O Laboratory Tests 09/14/20 06:11 Vital Signs Date Time Temp Pulse Resp B/P (MAP) Pulse Ox O2 Delivery O2 Flow Rate FiO2 09/14/20 10:56 92 Room Air 09/14/20 06:28 97.4 76 24 111/49 (69) 2.0 I&O- Last 24 Hours up to 6 AM 09/14/20 06:00 Intake Total 1420 ml Output Total 350 ml Balance 1070 ml SHEKHAR CARRILLO MD Sep 14, 2020 13:23
[2020-09-14] MEDS ORDERED: FUROSEMIDE 20MG/2ML VIAL (J1940) IV ONE (13:25)
--- NOTE | 2020-09-14 15:02 | IPN ---
NEPHROLOGY PROGRESS NOTE DATE: 09/14/2020 SUBJECTIVE: The patient was seen and examined at the bedside today morning. She reports that her shortness of breath is significantly better. She was eating her food when I saw her. Renal function is stable. Creatinine is down to 1.7 now. OBJECTIVE: VITAL SIGNS: Temperature is 97.4 degrees Fahrenheit, blood pressure 111/49, pulse rate 76, respiratory rate of 24, saturating 95% on nasal cannula at 2 liters. INTAKE AND OUTPUT: Urine output recorded as 225 mL and she is having some incontinent voids as well. Weight in the bed scale is not available. PHYSICAL EXAMINATION: GENERAL APPEARANCE: The patient is awake, alert, oriented x3, sitting up in the sofa, weak and cachectic. HEAD AND NECK: Extraocular muscles intact. Pupils are equally round and reactive to light. Mucous membranes are moist. Neck is supple. Mildly elevated jugular venous distention is noted. CARDIOVASCULAR: S1, S2, regular rate. EXTREMITIES: No significant edema of the bilateral lower extremities. RESPIRATORY: Mild expiratory rhonchi bilaterally from lower to upper lung zones. However they are better today as compared with yesterday. ABDOMEN: Soft, positive bowel sounds, nontender, no organomegaly. MUSCULOSKELETAL: No clubbing, no cyanosis. Pulses are 2+. CASH PERSON: No focal deficits. Power is 5/5 in all extremities. LAB REVIEW: CBC showed a WBC count of 8.7, hemoglobin 10.2, platelet count 124. BMP showed sodium 142, potassium 4.6, chloride 111, bicarbonate is 20. BUN 27, creatinine is 1.7. CURRENT INPATIENT MEDICATIONS: The patient's medications were all reviewed by myself. She continues to be on oral Levaquin and Midodrine. No significant change in the medications today as compared with yesterday. ASSESSMENT AND PLAN: 1. Acute renal failure superimposed on chronic kidney disease - the patient's renal function is stable. Creatinine continues to improved. Low dose of diuretic is being started as mentioned below. 2. Chronic diastolic congestive heart failure - The patient has severe chronic COPD and diuretics were on hold for renal failure, however kidney function is better now. I am going to give her a small dose of Lasix 20 mg IV today. 3. Acute COPD exacerbation with pseudomonas pneumonia - The patient has been switched to oral Levaquin now. Clinically he is improving. 4. Chronic hypotension - continue current dose of Midodrine. 5. Hyperchloremic metabolic acidosis she has had about five bowel movements so far. I am going to start the patient on oral bicarbonate.
[2020-09-14] MEDS: SODIUM BICARBONATE 325 MG TAB PO SCH ×2 (17:19→21:45)
[2020-09-15] MEDS: HEPARIN SOD (PORCINE) 5000UNITS/ML 1ML VIAL/SYRINGE SC SCH (05:07)
[2020-09-15 06:00] VITALS: BP 105/51
[2020-09-15] MEDS ORDERED: LevoFLOXacin 500 MG TABLET PO SCH (06:00)
[2020-09-15 06:27] LABS: BASO % 0.3 % (0.0-1.0); EOS # 0.7 10^3/uL (0.0-0.5); EOS % 6.9 % (0.0-3.0); HEMATOCRIT 32.5 % (36.0-47.0); LYMPH # 2.5 10^3/uL (1.5-5.0); LYMPH % 25.9 % (24.0-44.0); MEAN CORPUSCULAR HEMOGLOBIN 29.1 pg (27.0-33.0); MEAN CORPUSCULAR HGB CONC 30.8 g/dl (32.0-36.5); MEAN CORPUSCULAR VOLUME 94.5 fl (80.0-96.0); MONO # 0.8 10^3/uL (0.0-0.8); MONO % 8.6 % (2.0-8.0); NEUTROPHILS # 5.5 10^3/uL (1.5-8.5); NEUTROPHILS % 56.5 % (36.0-66.0); PLATELET COUNT, AUTOMATED 128 10^3/uL (150-450); RED BLOOD COUNT 3.44 10^6/uL (4.00-5.40); WHITE BLOOD COUNT 9.7 10^3/uL (4.0-10.0)
[2020-09-15 06:55] LABS: ALBUMIN 2.1 GM/DL (3.2-5.2); BILIRUBIN,TOTAL 0.3 MG/DL (0.2-1.0); C REACTIVE PROTEIN QUANTITATIV 4.44 MG/DL (0.00-0.30); CALCIUM LEVEL 8.3 MG/DL (8.8-10.2); CREATININE FOR GFR 1.89 MG/DL (0.55-1.30); GLOMERULAR FILTRATION RATE 27.2 (>32); MAGNESIUM LEVEL 2.1 MG/DL (1.8-2.4); POTASSIUM SERUM 4.9 MEQ/L (3.5-5.1); TOTAL PROTEIN 6.7 GM/DL (6.4-8.2)
[2020-09-15] MEDS: FERROUS SULFATE 325MG TAB PO SCH (08:05)
[2020-09-15] MEDS: MULTIVITAMINS/MINERALS THERAP 1 TAB PO SCH (08:06)
[2020-09-15] MEDS: LACTOBACILLUS ACIDOPHILUS CAP (BACID) PO SCH ×2 (08:06→11:38)
[2020-09-15] MEDS: SODIUM BICARBONATE 325 MG TAB PO SCH (08:06)
[2020-09-15] MEDS: PANTOPRAZOLE 40MG TAB (PROTONIX) PO SCH (08:06)
[2020-09-15] MEDS: MIDODRINE 2.5 MG TAB PO SCH ×2 (08:06→11:39)
[2020-09-15] MEDS: PILOCARPINE 1% OPHTH SOLN 15 ML OS SCH (08:07)
[2020-09-15] MEDS ORDERED: TORSEMIDE 10 MG TABLET PO SCH (09:00)
[2020-09-15] MEDS: ASCORBIC ACID 250 MG TAB PO SCH (10:51)
--- NOTE | 2020-09-15 12:20 | IPN ---
PROGRESS NOTE DATE: 09/15/2020 SUBJECTIVE: The patient was seen and examined at the bedside morning today morning. She reports that her breathing is better. She was given a small dose of IV Lasix yesterday. Creatinine has bumped up from 1.7 to 1.8 today. She denies any other active complaints. OBJECTIVE: VITAL SIGNS: Temperature is 98.7 degrees Fahrenheit, blood pressure 105/51, pulse rate 81, respiratory rate of 20, saturating 95% on nasal cannula at 2 liters. INTAKE AND OUTPUT: Urine output is not recorded. She has incontinent voids. Weight in the bed scale is not available. PHYSICAL EXAMINATION: GENERAL APPEARANCE: The patient is weak and cachectic, chronically malnourished lying in bed. HEAD AND NECK: Extraocular muscles intact. Pupils are equally round and reactive to light. Mucous membranes are moist. Neck is supple. There is no significant JVD. CARDIOVASCULAR: S1, S2, regular rate. EXTREMITIES: No edema of the bilateral lower extremities. RESPIRATORY: Mild expiratory rhonchi at the bases and upper lung zones. ABDOMEN: Soft, positive bowel sounds, nontender. MUSCULOSKELETAL: She has clubbing of the fingernails. ACCESS DEVELOPER: No focal deficits. Power is 5/5 in all extremities. LAB REVIEW: CBC showed a WBC count of 9.7, hemoglobin 10 today. BMP showed sodium 144, potassium 4.9, chloride 116, bicarbonate is 22, BUN 29, creatinine is 1.8. It was 1.7 yesterday. Calcium 8.3. C-reactive protein is 4.4 which is getting better. CURRENT INPATIENT MEDICATIONS: The patient's medications were all reviewed by myself. She was given a dose of Lasix yesterday. She takes Lasix 20 mg p.o. daily at home. I have started the patient on torsemide 10 mg p.o. daily. No other significant change in the medications. ASSESSMENT AND PLAN: 1. Acute renal failure superimposed on chronic kidney disease. The patient's creatinine has been fluctuating close to her baseline now. There is slight bump in the creatinine. I am going to start her on very low dose of the oral diuretic now. 2. Chronic diastolic congestive heart failure. The patient has been started on torsemide 10 mg p.o. daily. 3. Acute COPD exacerbation and pseudomonas pneumonia. The patient is on oral Levaquin. Clinically she is getting better. 4. Chronic hypotension. Continue Midodrine. 5. Metabolic acidosis. The patient is currently on oral bicarbonate and acidosis is getting better.
[2020-09-15] MEDS ORDERED: TORS10TA3 PO (12:34)
--- NOTE | 2020-09-15 12:34 | DS.PDOC ---
Discharge Summary General Date of Admission Sep 10, 2020 at 09:38 Date of Discharge 09/15/2020 Discharge Summary PROCEDURES PERFORMED DURING STAY: [None]. 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 diff (2019) Hx of Gallstone pancreatitis Hx of GI bleed Erosive esophagitis / GERD DVT prophylaxis COMPLICATIONS/CHIEF COMPLAINT: Shortness of breath HISTORY OF PRESENT ILLNESS: Patient is an 79 year old female with a PMHx of significant for Bronchiectasis (w/ Pseudomonas colonization), COPD 2/2 Second hand smoke exposure, Diastolic CHF, Acute on Chronic anemia / Iron deficiency, CKD3 , who presented to the hospital with complaints of weakness. Patient has noted progressive cough with yellow phlegm and associated shortness of breath. Patient was admitted to hospital service for further evaluation and treatment. Patient was seen and examined at the bedside. Patient reports improvement of her breathing. No significant cough. Denies any chest pain or palpitations. Has not spent any nausea, vomiting, abdominal discomfort, diarrhea, or pain with urination. HOSPITAL COURSE: Productive cough / Shortness breath / Chills - likely 2/2 Pseudomonas pneumonia - Reports significant improvement of her breathing without any significant cough or shortness of breath - Hx of Bronchiectasis (w/ Pseudomonas colonization) - c/w Supplemental oxygen at 2 L NC - s/p Leukocytosis - Imaging noted above - Sputum cultures 09/10: Pseudomonas Aeruginosa - MRSA screen 09/10: Negative - c/w Levofloxacin; c/w Zosyn - will continue with antibiotic course as an outpatient - c/w chest PT / Incentive spirometry / Acapella Positive blood culture 1 of 2 - possibly 2/2 contaminant - Blood cultures 09/10: 1 of 2 bottles positive for Gram positive rods - official result pending - c/w current antibiotics Abdominal tenderness - possibly 2/2 colitis - Abdomen reported loose bowel movements since starting probiotics - CT abdomen / pelvis with evidence of colitis - c/w Antibiotics (see above) - c/w probiotics Weakness - possibly 2/2 infection, possibly 2/2 deconditioning - See above - c/w PT and OT - OT had initially recommended rehabilitation only on Tuesday; However, on subsequent evaluation had reported significant improvement and now functioning at baseline 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 diff (2019) Hx of Gallstone pancreatitis Hx of GI bleed Erosive esophagitis / GERD - c/w Protonix DVT prophylaxis - c/w Heparin DISCHARGE MEDICATIONS: Please see below. ALLERGIES: Please see below. PHYSICAL EXAMINATION ON DISCHARGE: Vitals (See below) General: Patient is sitting up in bed, appears to be comfortable without any acute distress, awake and alert HEENT: AT, NC CVS: +S1S2 Lungs: Air entry is fair bilaterally without evidence of crackles, wheezing, but there are rhonchi appreciated at mid left lung field Abdomen: Abdomen is soft without any distention or tenderness appreciated Extremities: Lower extremities are free of any pitting edema LABORATORY DATA: Please see below. IMAGING: CXR 09/10: Essentially stable examination. CT abdomen / pelvis 09/11: 1. Findings suggesting colitis involving the ascending colon. 2. Nephrolithiasis and cholelithiasis again noted without acute obstructive uropathy or cholecystitis, respectively. 3. No ascites. No inflammatory stranding. No adenopathy. No free air. CT chest 09/11: Findings are essentially unchanged as described above. Superimposed acute process cannot definitively be excluded and requires clinical observation and correlation. ECHO 09/11: 1. Normal global left ventricular systolic function. There are some features of grade 1 left ventricular diastolic dysfunction manifested by abnormal relaxation. 2. Aortic valve sclerosis with ? (dictation cut) ? aortic stenosis. No aortic regurgitation. 3. Mitral annulus calcification with just mitral regurgitation. 4. Mildly tricuspid regurgitation with mild pulmonary hypertension. 5. Trace pericardial effusion. ACTIVITY: [As tolerated]. DISCHARGE PLAN: Follow-up with primary care provider nephrology and pulmonology within the next 7 days Remain compliant with treatment plan and medications Return to the ER if you experience any problems DISPOSITION: Home with services DISCHARGE CONDITION: [Stable]. TIME SPENT ON DISCHARGE: 35 minutes. Vital Signs/I&Os Vital Signs Date Time Temp Pulse Resp B/P (MAP) Pulse Ox O2 Delivery O2 Flow Rate FiO2 09/15/20 09:00 2.0 09/15/20 06:05 24 09/15/20 06:00 98.7 81 105/51 (69) 95 Nasal Cannula I&O- Last 24 Hours up to 6 AM 09/15/20 05:59 Intake Total 540 ml Output Total 250 ml Balance 290 ml Laboratory Data Labs 24H Laboratory Tests 2 09/15/20 05:52: Immature Granulocyte % (Auto) 1.8, Neutrophils (%) (Auto) 56.5, Lymphocytes (%) (Auto) 25.9, Monocytes (%) (Auto) 8.6H, Eosinophils (%) (Auto) 6.9H, Basophils (%) (Auto) 0.3, Neutrophils # (Auto) 5.5, Lymphocytes # (Auto) 2.5, Monocytes # (Auto) 0.8, Eosinophils # (Auto) 0.7H, Basophils # (Auto) 0.0, Nucleated Red Blood Cells % (auto) 0.0, Anion Gap 6L, Glomerular Filtration Rate 27.2L, Calcium Level 8.3L, Magnesium Level 2.1, Total Bilirubin 0.3, Aspartate Amino Transf (AST/SGOT) 24, Alanine Aminotransferase (ALT/SGPT) 18, Alkaline Phosphatase 98, C-Reactive Protein, Quantitative 4.44H, Total Protein 6.7, Albumin 2.1L, Albumin/Globulin Ratio 0.5L CBC/BMP Laboratory Tests 09/15/20 05:52 Microbiology Microbiology 09/10/20 Gram Stain - Final, Complete 09/10/20 Sputum Culture - Final, Complete Pseudomonas Aeruginosa Mucoid 09/10/20 Blood Culture - Final, Complete NO GROWTH AFTER 5 DAYS 09/10/20 Blood Culture - Preliminary, Resulted Discharge Medications Scheduled Ascorbic Acid (Vitamin C) 250 Mg Tab, 250 MG PO DAILY, (Reported) Calcium Carbonate/Vitamin D3 (Oyster Shell 500-Vit D3 200 Tb) 1 Tab Tab, 1 TAB PO DAILY, (Reported) Epoetin Juan C-Epbx (Retacrit) 4,000 Unit/1 Ml Vial, 4,000 UNIT SC Q2WK, (Reported) THURSDAYS Ferrous Sulfate (Ferrous Sulfate) 325 Mg Tablet, 325 MG PO DAILY, (Reported) L.acidoph/L.bulg/B.bif/S.therm (Geovanna-Bid Caplet) 1 Each Tablet, 1 EA PO BID Levofloxacin (Levofloxacin) 500 Mg Tablet, 500 MG PO Q48H Midodrine HCl (Midodrine HCl) 2.5 Mg Tablet, 2.5 MG PO TID, (Reported) Multivitamins (Thera M Plus Tablet) 1 Tab Tab, 1 TAB PO DAILY, (Reported) Pantoprazole Sodium (Pantoprazole Sodium) 40 Mg Tablet.dr, 40 MG PO DAILY, (Reported) Pilocarpine HCl (Pilocarpine HCl) 1% 15ML Drops, 1 DROP OS QID, (Reported) Scheduled PRN Albuterol Sulf (Albuterol Sulfate) 2.5 Mg/3 Ml Nebu, 2.5 MG INH QID PRN for SHOR TNESS OF BREATH, (Reported) Allergies Coded Allergies: bimatoprost (Verified Allergy, Intermediate, EYE REDNESS, 12/05/18) cephalexin (Unverified Allergy, Unknown, 07/20/19) doxycycline (Unverified Allergy, Unknown, 07/20/19) latanoprost (Verified Adverse Reaction, Intermediate, EYE PAIN HEART RACING, 07/20/19) travoprost (Verified Adverse Reaction, Intermediate, EYE PAIN HEART RACING, 07/20/19) Sulfa (Sulfonamide Antibiotics) (Verified Adverse Reaction, Mild, GI ISSUES, 07/20/19) brimonidine (Verified Adverse Reaction, Mild, 07/20/19) diclofenac (Verified Adverse Reaction, Mild, VOMITS, 07/20/19) dorzolamide (Verified Adverse Reaction, Mild, CONGESTED,COUGH, 07/20/19) moxifloxacin (Verified Adverse Reaction, Mild, DIARRHEA, 12/05/18) timolol (Verified Adverse Reaction, Mild, CONGESTED,COUGH, 07/20/19) SHEKHAR CARRILLO MD Sep 15, 2020 12:33
== END 2020-09-15 13:30 | disposition home health service (06) | DRG 178 ==
LOC: M ED 19:01 → UNDOADMOB 09-10 09:38 → M ED INP 09-10 09:38 → ENRESERV 09-10 12:51 → M ED INP 09-10 14:10 → M MS5PR 09-10 14:10
PROVIDERS: ADMIT Internal Medicine; ATTEND Internal Medicine
DX: J15.1 Pneumonia due to Pseudomonas (principal); I50.32 Chronic diastolic (congestive) heart failure; N17.9 Acute kidney failure, unspecified; J44.1 Chronic obstructive pulmonary disease with (acute) exacerbation; J44.0 Chronic obstructive pulmonary disease with (acute) lower respiratory infection; E87.2 Acidosis; D50.9 Iron deficiency anemia, unspecified; N18.30 Chronic kidney disease, stage 3 unspecified; M85.80 Other specified disorders of bone density and structure, unspecified site; I95.9 Hypotension, unspecified; R53.1 Weakness; D63.1 Anemia in chronic kidney disease; K52.9 Noninfective gastroenteritis and colitis, unspecified; H40.9 Unspecified glaucoma; K21.00 Gastro-esophageal reflux disease with esophagitis, without bleeding; Z87.19 Personal history of other diseases of the digestive system; Z98.41 Cataract extraction status, right eye; Z98.42 Cataract extraction status, left eye; Z77.22 Contact with and (suspected) exposure to environmental tobacco smoke (acute) (chronic); Z20.822 Contact with and (suspected) exposure to COVID-19; Z79.899 Other long term (current) drug therapy; Z88.1 Allergy status to other antibiotic agents; Z88.2 Allergy status to sulfonamides; Z88.8 Allergy status to other drugs, medicaments and biological substances; Z87.891 Personal history of nicotine dependence

== ENCOUNTER → 2020-10-07 | Outpatient (CLI) | payer MEDICARE ==
[~2020-10-07] MED LIST changes: +LEVO500T3 PO; +MIDO2.5T PO; +RETA4000 SC; +RISATAB3 PO; +TORS10TA3 PO
--- NOTE | 2020-10-07 12:38 | REP ---
INDICATION: NEOPLASM OF UNCERTAIN BEHA OF LIVER. COMPARISON: 08/18/2020 TECHNIQUE: Transabdominal scanning FINDINGS: Multiple ultrasonographic images of the liver show the hepatic parenchymal echo texture to appear unchanged from the prior exam. There are no focal masses. There is no intrahepatic ductal dilatation. The common bile duct measures between 3 and 4 mm in its greatest transverse dimension. Multiple ultrasonographic images of the gallbladder show multiple echogenic foci within the gallbladder lumen which casts acoustic shadows. There is chronic unchanged gallbladder wall thickening without pericholecystic edema.. Images of the pancreatic region show no gross abnormality. The imaged portion of the right kidney is unremarkable. IMPRESSION: Cholelithiasis. No significant change from the prior exam Accredited by the [employer] in General Ultrasound. <Electronically signed by Dayday Casanova > 10/07/20 [id number]
== END ==
LOC: M RAD 09:10
PROVIDERS: ATTEND Internal Medicine Gastroenterology
DX: D37.6 Neoplasm of uncertain behavior of liver, gallbladder and bile ducts (principal); K74.69 Other cirrhosis of liver; K80.20 Calculus of gallbladder without cholecystitis without obstruction

== ENCOUNTER → 2020-10-07 | Outpatient (CLI) | payer MEDICARE ==
[2020-10-07 10:19] LABS: ALBUMIN 2.8 GM/DL (3.2-5.2); BILIRUBIN,DIRECT 0.2 MG/DL (0.0-0.2); BILIRUBIN,TOTAL 0.5 MG/DL (0.2-1.0); TOTAL PROTEIN 7.4 GM/DL (6.4-8.2)
== END ==
LOC: M LAB 09:12
PROVIDERS: ATTEND Internal Medicine Gastroenterology
DX: K74.60 Unspecified cirrhosis of liver (principal)

== ENCOUNTER → 2020-10-15 | Outpatient (CLI) | payer MEDICARE | LOC: M CARPUL 09:30 | PROVIDERS: ATTEND Family Medicine | DX: I71.2 Thoracic aortic aneurysm, without rupture (principal) ==

== ENCOUNTER → 2021-01-12 | Outpatient (CLI) | payer MEDICARE ==
--- NOTE | 2021-01-12 11:40 | REP ---
INDICATION: BRONCHIECTASIS, UNCOMPLICATED COMPARISON: 09/11/2020 TECHNIQUE: PA and lateral. FINDINGS: Severe fibrosis and cystic bronchiectasis noted throughout the bilateral lung lewis (left greater than right) similar to prior examination. Superimposed left pleural effusion as well as acute airspace disease cannot be excluded. IMPRESSION: Severe stable chronic changes. Superimposed left effusion and airspace disease cannot be excluded. <Electronically signed by Marcelo Chapin > 01/12/21 [id number]
== END ==
LOC: M RAD 11:08
PROVIDERS: ATTEND Internal Medicine Pulmonary Disease
DX: J47.9 Bronchiectasis, uncomplicated (principal)
CPT/HCPCS: 71046; G0463

== ENCOUNTER 2021-05-05 17:30 | Inpatient (IN) | payer MEDICARE ==
[~2021-05-05] VITALS: Ht 165.1 cm; Wt 44.9 kg
[~2021-05-05 17:30] MED LIST changes: -LEVO500T3 PO; +LEVO500T4 PO; -PILO1OPD OS; +PILO1OPD OU
[2021-05-05 18:16] LABS: ABG BASE EXCESS -0.7 (-2.0-2.0); ABG HCO3 23.1 MEQ/L (22.0-26.0); ABG PARTIAL PRESSURE O2 102.6 mmHg (75.0-100.0); ABG STANDARD HCO3 23.9 MEQ/L (22.0-26.0); ABG TOTAL CO2 24.2 MEQ/L (23.0-31.0); ABG pH (ARTERIAL) 7.437 UNITS (7.350-7.450)
[2021-05-05 18:46] LABS: BASO % 0.4 % (0.0-1.0); EOS % 0.6 % (0.0-3.0); HEMATOCRIT 30.5 % (36.0-47.0); HEMOGLOBIN 9.8 g/dl (12.0-15.5); LYMPH # 0.9 10^3/uL (1.5-5.0); LYMPH % 12.8 % (24.0-44.0); MEAN CORPUSCULAR HEMOGLOBIN 30.4 pg (27.0-33.0); MEAN CORPUSCULAR HGB CONC 32.1 g/dl (32.0-36.5); MEAN CORPUSCULAR VOLUME 94.7 fl (80.0-96.0); MONO # 0.6 10^3/uL (0.0-0.8); MONO % 7.8 % (2.0-8.0); NEUTROPHILS # 5.4 10^3/uL (1.5-8.5); NEUTROPHILS % 77.7 % (36.0-66.0); PLATELET COUNT, AUTOMATED 117 10^3/uL (150-450); RED BLOOD COUNT 3.22 10^6/uL (4.00-5.40)
[2021-05-05 19:13] LABS: ALBUMIN 2.6 GM/DL (3.2-5.2); BILIRUBIN,DIRECT 0.2 MG/DL (0.0-0.2); BILIRUBIN,TOTAL 0.6 MG/DL (0.2-1.0); CALCIUM LEVEL 8.8 MG/DL (8.8-10.2); CREATININE FOR GFR 1.42 MG/DL (0.55-1.30); GLOMERULAR FILTRATION RATE 37.8 (>32); POTASSIUM SERUM 4.8 MEQ/L (3.5-5.1); TOTAL PROTEIN 7.2 GM/DL (6.4-8.2)
[2021-05-05] MEDS ORDERED: LIDOCAINE 2% 5ML JELLY UROJET TOP ONE (22:05)
[2021-05-05] MEDS ORDERED: cefTRIAXone SOD 1 GM in D5W MINI-BAG PLUS 50 ML IV ONE (22:40)
[2021-05-05] MEDS ORDERED: RHOP0.02 OU (23:51)
[2021-05-05] MEDS ORDERED: HOME MED LIST COMPLETE! XX SCH (23:55)
[2021-05-06] MEDS ORDERED: ACETAMINOPHEN TAB 650MG DOSE (2X325MG) PO PRN (00:10)
[2021-05-06] MEDS ORDERED: NS 1,000 ML IV SCH (00:15)
[2021-05-06] MEDS ORDERED: METAL LOCK LOOP XX ONE (02:35)
[2021-05-06] MEDS: HEPARIN SOD (PORCINE) 5000UNITS/ML 1ML VIAL/SYRINGE SC SCH ×3 (06:00→22:31)
[2021-05-06 06:41] LABS: HEMATOCRIT 33.5 % (36.0-47.0); HEMOGLOBIN 10.6 g/dl (12.0-15.5); MEAN CORPUSCULAR HEMOGLOBIN 29.9 pg (27.0-33.0); MEAN CORPUSCULAR HGB CONC 31.6 g/dl (32.0-36.5); MEAN CORPUSCULAR VOLUME 94.4 fl (80.0-96.0); RED BLOOD COUNT 3.55 10^6/uL (4.00-5.40); WHITE BLOOD COUNT 5.1 10^3/uL (4.0-10.0)
[2021-05-06 06:42] LABS: PLATELET COUNT, AUTOMATED 85 10^3/uL (150-450)
[2021-05-06 07:11] LABS: ALBUMIN 2.5 GM/DL (3.2-5.2); BILIRUBIN,TOTAL 0.4 MG/DL (0.2-1.0); CALCIUM LEVEL 8.2 MG/DL (8.8-10.2); CREATININE FOR GFR 1.37 MG/DL (0.55-1.30); GLOMERULAR FILTRATION RATE 39.4 (>32); MAGNESIUM LEVEL 1.9 MG/DL (1.8-2.4); PHOSPHORUS LEVEL 3.4 MG/DL (2.5-4.9); POTASSIUM SERUM 4.4 MEQ/L (3.5-5.1); TOTAL PROTEIN 6.8 GM/DL (6.4-8.2)
[2021-05-06 07:15] LABS: EOSINOPHILS 3 % (0-3); LYMPHOCYTES 17 % (16-44); MONOCYTES 3 % (0-5); NEUTROPHILS 74 % (28-66); PLATELET ESTIMATE DECREASED (NORMAL)
[2021-05-06] MEDS: MIDODRINE 2.5 MG TAB PO SCH ×3 (08:00→15:17)
[2021-05-06] MEDS: PILOCARPINE 1% OPHTH SOLN 15 ML OU SCH ×4 (09:00→20:39)
[2021-05-06] MEDS: MULTIVITAMINS/MINERALS THERAP 1 TAB PO SCH (09:00)
[2021-05-06] MEDS: ASCORBIC ACID 250 MG TAB PO SCH (09:00)
[2021-05-06] MEDS: PANTOPRAZOLE 40MG TAB (PROTONIX) PO SCH (11:05)
[2021-05-06] MEDS ORDERED: LevoFLOXacin IV 500 MG in IV 1 EA IV ONE (11:55)
[2021-05-06 13:51] VITALS: BP 142/61
[2021-05-06] MEDS: CEFEPIME HCL 1 GM in D5W MINI-BAG PLUS 50 ML IV SCH (15:47)
[2021-05-06 19:56] VITALS: BP 124/92
[2021-05-06 22:19] VITALS: BP 124/92
[2021-05-06] MEDS ORDERED: cefTRIAXone SOD 1 GM in D5W MINI-BAG PLUS 50 ML IV SCH (23:00)
[2021-05-07] MEDS: CEFEPIME HCL 1 GM in D5W MINI-BAG PLUS 50 ML IV SCH ×2 (00:55→12:51)
[2021-05-07 05:21] VITALS: BP 126/58
[2021-05-07] MEDS: HEPARIN SOD (PORCINE) 5000UNITS/ML 1ML VIAL/SYRINGE SC SCH ×3 (05:44→20:53)
[2021-05-07 06:43] LABS: BASO % 0.5 % (0.0-1.0); EOS # 0.1 10^3/uL (0.0-0.5); EOS % 1.4 % (0.0-3.0); HEMATOCRIT 30.1 % (36.0-47.0); HEMOGLOBIN 9.6 g/dl (12.0-15.5); LYMPH # 0.9 10^3/uL (1.5-5.0); LYMPH % 21.9 % (24.0-44.0); MEAN CORPUSCULAR HEMOGLOBIN 30.6 pg (27.0-33.0); MEAN CORPUSCULAR HGB CONC 31.9 g/dl (32.0-36.5); MEAN CORPUSCULAR VOLUME 95.9 fl (80.0-96.0); MONO # 0.5 10^3/uL (0.0-0.8); MONO % 10.7 % (2.0-8.0); NEUTROPHILS # 2.8 10^3/uL (1.5-8.5); RED BLOOD COUNT 3.14 10^6/uL (4.00-5.40); WHITE BLOOD COUNT 4.3 10^3/uL (4.0-10.0)
[2021-05-07 06:46] LABS: PLATELET COUNT, AUTOMATED 91 10^3/uL (150-450)
[2021-05-07 07:12] LABS: CALCIUM LEVEL 8.4 MG/DL (8.8-10.2); CREATININE FOR GFR 1.3 MG/DL (0.55-1.30); GLOMERULAR FILTRATION RATE 41.9 (>32); POTASSIUM SERUM 4.2 MEQ/L (3.5-5.1)
[2021-05-07] MEDS: MULTIVITAMINS/MINERALS THERAP 1 TAB PO SCH (08:58)
[2021-05-07] MEDS: PILOCARPINE 1% OPHTH SOLN 15 ML OU SCH ×4 (08:58→20:53)
[2021-05-07] MEDS: ASCORBIC ACID 250 MG TAB PO SCH (08:58)
[2021-05-07] MEDS: PANTOPRAZOLE 40MG TAB (PROTONIX) PO SCH (08:58)
[2021-05-07 09:10] VITALS: BP 139/65
[2021-05-07] MEDS: MIDODRINE 2.5 MG TAB PO SCH ×3 (09:46→17:08)
[2021-05-07] MEDS ORDERED: LevoFLOXacin IV 250 MG in IV 1 EA IV SCH (12:00)
[2021-05-07 14:43] VITALS: BP 117/58
[2021-05-07] MEDS: TOBRAMYCIN INHAL 300 MG/5 ML SOLN INH SCH (20:00)
[2021-05-07] MEDS: ALBUTEROL SULFATE 2.5 MG/0.5 ML INH NEB SOLN INH PRN (21:06)
[2021-05-07 21:59] VITALS: BP 129/62
[2021-05-08] MEDS: CEFEPIME HCL 1 GM in D5W MINI-BAG PLUS 50 ML IV SCH ×2 (00:44→13:14)
[2021-05-08 06:00] VITALS: BP 111/57
[2021-05-08] MEDS: HEPARIN SOD (PORCINE) 5000UNITS/ML 1ML VIAL/SYRINGE SC SCH ×2 (06:28→13:14)
[2021-05-08] MEDS: TOBRAMYCIN INHAL 300 MG/5 ML SOLN INH SCH ×2 (07:36→20:12)
[2021-05-08 07:55] LABS: BASO % 0.3 % (0.0-1.0); EOS # 0.2 10^3/uL (0.0-0.5); EOS % 2.9 % (0.0-3.0); HEMATOCRIT 30.7 % (36.0-47.0); HEMOGLOBIN 9.9 g/dl (12.0-15.5); LYMPH # 1.4 10^3/uL (1.5-5.0); LYMPH % 24.4 % (24.0-44.0); MEAN CORPUSCULAR HEMOGLOBIN 30.7 pg (27.0-33.0); MEAN CORPUSCULAR HGB CONC 32.2 g/dl (32.0-36.5); MEAN CORPUSCULAR VOLUME 95.3 fl (80.0-96.0); MONO # 0.8 10^3/uL (0.0-0.8); NEUTROPHILS # 3.4 10^3/uL (1.5-8.5); NEUTROPHILS % 59.1 % (36.0-66.0); RED BLOOD COUNT 3.22 10^6/uL (4.00-5.40); WHITE BLOOD COUNT 5.8 10^3/uL (4.0-10.0)
[2021-05-08] MEDS: MIDODRINE 2.5 MG TAB PO SCH ×3 (08:00→16:51)
[2021-05-08 08:01] LABS: PLATELET COUNT, AUTOMATED 78 10^3/uL (150-450)
[2021-05-08 08:20] LABS: CALCIUM LEVEL 8.3 MG/DL (8.8-10.2); CREATININE FOR GFR 1.43 MG/DL (0.55-1.30); GLOMERULAR FILTRATION RATE 37.5 (>32); POTASSIUM SERUM 4.5 MEQ/L (3.5-5.1)
[2021-05-08] MEDS: ASCORBIC ACID 250 MG TAB PO SCH (08:39)
[2021-05-08] MEDS: MULTIVITAMINS/MINERALS THERAP 1 TAB PO SCH (08:39)
[2021-05-08] MEDS: PANTOPRAZOLE 40MG TAB (PROTONIX) PO SCH (08:39)
[2021-05-08] MEDS: PILOCARPINE 1% OPHTH SOLN 15 ML OU SCH ×4 (08:39→20:38)
[2021-05-08 14:00] VITALS: BP 100/47
[2021-05-08 20:00] VITALS: BP 110/51
[2021-05-09] MEDS: CEFEPIME HCL 1 GM in D5W MINI-BAG PLUS 50 ML IV SCH ×2 (00:45→15:04)
[2021-05-09 04:00] VITALS: BP 120/54
[2021-05-09 06:32] LABS: HEMATOCRIT 30.5 % (36.0-47.0); HEMOGLOBIN 9.9 g/dl (12.0-15.5); MEAN CORPUSCULAR HEMOGLOBIN 30.7 pg (27.0-33.0); MEAN CORPUSCULAR HGB CONC 32.5 g/dl (32.0-36.5); MEAN CORPUSCULAR VOLUME 94.4 fl (80.0-96.0); RED BLOOD COUNT 3.23 10^6/uL (4.00-5.40); WHITE BLOOD COUNT 6.6 10^3/uL (4.0-10.0)
[2021-05-09 06:33] LABS: PLATELET COUNT, AUTOMATED 78 10^3/uL (150-450)
[2021-05-09 06:49] LABS: CALCIUM LEVEL 8.4 MG/DL (8.8-10.2); CREATININE FOR GFR 1.36 MG/DL (0.55-1.30); GLOMERULAR FILTRATION RATE 39.7 (>32); POTASSIUM SERUM 4.5 MEQ/L (3.5-5.1)
[2021-05-09] MEDS: TOBRAMYCIN INHAL 300 MG/5 ML SOLN INH SCH ×2 (07:16→19:22)
[2021-05-09 07:17] LABS: ATYPICAL LYMPH 4 % (0-5); EOSINOPHILS 3 % (0-3); LYMPHOCYTES 19 % (16-44); MONOCYTES 9 % (0-5); NEUTROPHILS 56 % (28-66)
[2021-05-09 07:18] LABS: PLATELET ESTIMATE DECREASED (NORMAL)
[2021-05-09 07:20] LABS: OVALOCYTES 1+; POIKILOCYTOSIS 1+
[2021-05-09 07:21] LABS: SMUDGE CELLS 1+
[2021-05-09 07:22] LABS: PLATELET CLUMPS SMALL AMT
[2021-05-09] MEDS: PILOCARPINE 1% OPHTH SOLN 15 ML OU SCH ×4 (08:50→20:08)
[2021-05-09] MEDS: ASCORBIC ACID 250 MG TAB PO SCH (08:50)
[2021-05-09] MEDS: MULTIVITAMINS/MINERALS THERAP 1 TAB PO SCH (08:50)
[2021-05-09] MEDS: PANTOPRAZOLE 40MG TAB (PROTONIX) PO SCH (08:50)
[2021-05-09] MEDS: MIDODRINE 2.5 MG TAB PO SCH ×3 (08:50→17:27)
[2021-05-09 14:00] VITALS: BP 114/53
[2021-05-09 20:00] VITALS: BP 107/50
[2021-05-10] MEDS: CEFEPIME HCL 1 GM in D5W MINI-BAG PLUS 50 ML IV SCH ×2 (01:00→13:28)
[2021-05-10 04:00] VITALS: BP 116/55
[2021-05-10 08:06] LABS: BASO % 0.2 % (0.0-1.0); EOS # 0.3 10^3/uL (0.0-0.5); HEMATOCRIT 32.5 % (36.0-47.0); HEMOGLOBIN 10.2 g/dl (12.0-15.5); LYMPH # 2.2 10^3/uL (1.5-5.0); LYMPH % 21.6 % (24.0-44.0); MEAN CORPUSCULAR HGB CONC 31.4 g/dl (32.0-36.5); MEAN CORPUSCULAR VOLUME 95.6 fl (80.0-96.0); MONO # 0.8 10^3/uL (0.0-0.8); MONO % 8.2 % (2.0-8.0); NEUTROPHILS # 6.7 10^3/uL (1.5-8.5); NEUTROPHILS % 66.4 % (36.0-66.0)
[2021-05-10 08:16] LABS: PLATELET COUNT, AUTOMATED 88 10^3/uL (150-450)
[2021-05-10 08:24] LABS: CALCIUM LEVEL 8.8 MG/DL (8.8-10.2); CREATININE FOR GFR 1.34 MG/DL (0.55-1.30); GLOMERULAR FILTRATION RATE 40.4 (>32); POTASSIUM SERUM 4.6 MEQ/L (3.5-5.1)
[2021-05-10] MEDS: ASCORBIC ACID 250 MG TAB PO SCH (08:39)
[2021-05-10] MEDS: PANTOPRAZOLE 40MG TAB (PROTONIX) PO SCH (08:39)
[2021-05-10] MEDS: MULTIVITAMINS/MINERALS THERAP 1 TAB PO SCH (08:39)
[2021-05-10] MEDS: MIDODRINE 2.5 MG TAB PO SCH ×3 (08:39→16:47)
[2021-05-10] MEDS: PILOCARPINE 1% OPHTH SOLN 15 ML OU SCH ×4 (08:40→20:27)
[2021-05-10] MEDS: TOBRAMYCIN INHAL 300 MG/5 ML SOLN INH SCH ×2 (11:11→20:36)
[2021-05-10 11:20] LABS: CLOSTRIDIUM DIFFICILE PCR POSITIVE (NEGATIVE)
[2021-05-10] MEDS: LACTOBACILLUS ACIDOPHILUS CAP (BACID) PO SCH ×2 (12:02→17:41)
[2021-05-10] MEDS: CYANOCOBALAMIN 500 MCG TAB PO SCH (12:02)
[2021-05-10] MEDS: CALCIUM/VITAMIN D 500 MG TAB PO SCH ×2 (12:02→20:26)
[2021-05-10] MEDS: VANCOMYCIN ORAL SOL 250MG/5ML ORAL SYRINGE PO SCH ×2 (12:44→17:42)
[2021-05-10 14:00] VITALS: BP 130/58
[2021-05-10] MEDS: CLOTRIMAZOLE 10 MG TROCHE PO SCH ×2 (18:20→20:26)
[2021-05-10 20:00] VITALS: BP 123/58
[2021-05-10] MEDS: ALBUTEROL SULFATE 2.5 MG/0.5 ML INH NEB SOLN INH PRN (20:36)
[2021-05-11] MEDS: VANCOMYCIN ORAL SOL 250MG/5ML ORAL SYRINGE PO SCH ×5 (01:13→23:33)
[2021-05-11] MEDS: CEFEPIME HCL 1 GM in D5W MINI-BAG PLUS 50 ML IV SCH (01:15)
[2021-05-11 04:00] VITALS: BP 111/56
[2021-05-11] MEDS: TOBRAMYCIN INHAL 300 MG/5 ML SOLN INH SCH ×2 (07:32→20:36)
[2021-05-11 08:35] VITALS: BP 113/55
[2021-05-11] MEDS: MIDODRINE 2.5 MG TAB PO SCH ×3 (08:36→17:40)
[2021-05-11] MEDS: LACTOBACILLUS ACIDOPHILUS CAP (BACID) PO SCH ×3 (08:36→17:40)
[2021-05-11] MEDS: CYANOCOBALAMIN 500 MCG TAB PO SCH (08:36)
[2021-05-11] MEDS: MULTIVITAMINS/MINERALS THERAP 1 TAB PO SCH (08:36)
[2021-05-11] MEDS: CLOTRIMAZOLE 10 MG TROCHE PO SCH ×4 (08:36→20:52)
[2021-05-11] MEDS: CALCIUM/VITAMIN D 500 MG TAB PO SCH ×2 (08:36→20:52)
[2021-05-11] MEDS: PILOCARPINE 1% OPHTH SOLN 15 ML OU SCH ×4 (08:37→20:52)
[2021-05-11] MEDS: PANTOPRAZOLE 40MG TAB (PROTONIX) PO SCH (08:37)
[2021-05-11] MEDS: ASCORBIC ACID 250 MG TAB PO SCH (08:37)
[2021-05-11] MEDS: CEFDINIR 300 MG CAP (OMNICEF) PO SCH (09:55)
[2021-05-11 10:21] LABS: BASO % 0.3 % (0.0-1.0); EOS # 0.4 10^3/uL (0.0-0.5); EOS % 3.9 % (0.0-3.0); HEMATOCRIT 32.2 % (36.0-47.0); HEMOGLOBIN 10.2 g/dl (12.0-15.5); LYMPH # 1.8 10^3/uL (1.5-5.0); MEAN CORPUSCULAR HEMOGLOBIN 30.4 pg (27.0-33.0); MEAN CORPUSCULAR HGB CONC 31.7 g/dl (32.0-36.5); MEAN CORPUSCULAR VOLUME 95.8 fl (80.0-96.0); MONO # 0.9 10^3/uL (0.0-0.8); MONO % 7.7 % (2.0-8.0); NEUTROPHILS % 71.6 % (36.0-66.0); PLATELET COUNT, AUTOMATED 116 10^3/uL (150-450); RED BLOOD COUNT 3.36 10^6/uL (4.00-5.40); WHITE BLOOD COUNT 11.2 10^3/uL (4.0-10.0)
[2021-05-11 10:49] LABS: CALCIUM LEVEL 9.4 MG/DL (8.8-10.2); CREATININE FOR GFR 1.41 MG/DL (0.55-1.30); GLOMERULAR FILTRATION RATE 38.1 (>32); POTASSIUM SERUM 5.1 MEQ/L (3.5-5.1)
[2021-05-11 14:00] VITALS: BP 113/55
[2021-05-11 17:39] VITALS: BP 135/60
[2021-05-11 19:53] VITALS: BP 137/64
[2021-05-11] MEDS: ALBUTEROL SULFATE 2.5 MG/0.5 ML INH NEB SOLN INH PRN (20:36)
[2021-05-12] MEDS: VANCOMYCIN ORAL SOL 250MG/5ML ORAL SYRINGE PO SCH ×3 (05:41→17:30)
[2021-05-12 06:00] VITALS: BP 132/65
[2021-05-12 07:25] LABS: BASO # 0.1 10^3/uL (0.0-0.2); BASO % 0.5 % (0.0-1.0); EOS # 0.6 10^3/uL (0.0-0.5); HEMATOCRIT 30.1 % (36.0-47.0); HEMOGLOBIN 9.6 g/dl (12.0-15.5); LYMPH # 1.9 10^3/uL (1.5-5.0); LYMPH % 20.3 % (24.0-44.0); MEAN CORPUSCULAR HEMOGLOBIN 30.5 pg (27.0-33.0); MEAN CORPUSCULAR HGB CONC 31.9 g/dl (32.0-36.5); MEAN CORPUSCULAR VOLUME 95.6 fl (80.0-96.0); MONO # 0.8 10^3/uL (0.0-0.8); MONO % 8.5 % (2.0-8.0); NEUTROPHILS # 6.1 10^3/uL (1.5-8.5); PLATELET COUNT, AUTOMATED 115 10^3/uL (150-450); RED BLOOD COUNT 3.15 10^6/uL (4.00-5.40); WHITE BLOOD COUNT 9.6 10^3/uL (4.0-10.0)
[2021-05-12 07:53] LABS: CALCIUM LEVEL 9.2 MG/DL (8.8-10.2); CREATININE FOR GFR 1.2 MG/DL (0.55-1.30); GLOMERULAR FILTRATION RATE 45.9 (>32); POTASSIUM SERUM 5.3 MEQ/L (3.5-5.1)
[2021-05-12] MEDS: CEFDINIR 300 MG CAP (OMNICEF) PO SCH (08:54)
[2021-05-12] MEDS: ASCORBIC ACID 250 MG TAB PO SCH (08:54)
[2021-05-12] MEDS: MIDODRINE 2.5 MG TAB PO SCH ×2 (08:54→14:44)
[2021-05-12] MEDS: CLOTRIMAZOLE 10 MG TROCHE PO SCH ×4 (08:54→22:58)
[2021-05-12] MEDS: TOBRAMYCIN INHAL 300 MG/5 ML SOLN INH SCH ×2 (08:54→20:09)
[2021-05-12] MEDS: LACTOBACILLUS ACIDOPHILUS CAP (BACID) PO SCH ×3 (08:55→17:31)
[2021-05-12] MEDS: PANTOPRAZOLE 40MG TAB (PROTONIX) PO SCH (08:55)
[2021-05-12] MEDS: MULTIVITAMINS/MINERALS THERAP 1 TAB PO SCH (08:55)
[2021-05-12] MEDS: CALCIUM/VITAMIN D 500 MG TAB PO SCH ×2 (08:55→22:58)
[2021-05-12] MEDS: CYANOCOBALAMIN 500 MCG TAB PO SCH (08:55)
[2021-05-12] MEDS: PILOCARPINE 1% OPHTH SOLN 15 ML OU SCH ×4 (08:55→22:58)
[2021-05-12 13:23] LABS: CREATININE FOR GFR 1.25 MG/DL (0.55-1.30); GLOMERULAR FILTRATION RATE 43.8 (>32)
[2021-05-12 14:00] VITALS: BP 128/60
[2021-05-12] MEDS ORDERED: MIRALAX *UNIT DOSE* 17GM PACKET PO PRN (15:15)
[2021-05-12] MEDS ORDERED: MIDODRINE 2.5 MG TAB PO ONE (18:00)
[2021-05-12 22:00] VITALS: BP 125/58
[2021-05-13] MEDS: VANCOMYCIN ORAL SOL 250MG/5ML ORAL SYRINGE PO SCH ×3 (00:59→06:10)
[2021-05-13 06:00] VITALS: BP 121/56
[2021-05-13 06:16] LABS: BASO # 0.1 10^3/uL (0.0-0.2); BASO % 0.6 % (0.0-1.0); EOS # 0.6 10^3/uL (0.0-0.5); EOS % 5.9 % (0.0-3.0); HEMATOCRIT 29.4 % (36.0-47.0); HEMOGLOBIN 9.3 g/dl (12.0-15.5); LYMPH # 1.9 10^3/uL (1.5-5.0); LYMPH % 18.8 % (24.0-44.0); MEAN CORPUSCULAR HEMOGLOBIN 30.3 pg (27.0-33.0); MEAN CORPUSCULAR HGB CONC 31.6 g/dl (32.0-36.5); MEAN CORPUSCULAR VOLUME 95.8 fl (80.0-96.0); MONO # 0.9 10^3/uL (0.0-0.8); MONO % 8.6 % (2.0-8.0); NEUTROPHILS # 6.7 10^3/uL (1.5-8.5); NEUTROPHILS % 65.3 % (36.0-66.0); PLATELET COUNT, AUTOMATED 120 10^3/uL (150-450); RED BLOOD COUNT 3.07 10^6/uL (4.00-5.40); WHITE BLOOD COUNT 10.3 10^3/uL (4.0-10.0)
[2021-05-13 06:35] LABS: CREATININE FOR GFR 1.17 MG/DL (0.55-1.30); GLOMERULAR FILTRATION RATE 47.3 (>32); POTASSIUM SERUM 5.1 MEQ/L (3.5-5.1)
[2021-05-13] MEDS: TOBRAMYCIN INHAL 300 MG/5 ML SOLN INH SCH (07:14)
[2021-05-13] MEDS ORDERED: MIDODRINE 2.5 MG TAB PO SCH (08:00)
[2021-05-13] MEDS: CALCIUM/VITAMIN D 500 MG TAB PO SCH (08:54)
[2021-05-13] MEDS: LACTOBACILLUS ACIDOPHILUS CAP (BACID) PO SCH (08:54)
[2021-05-13] MEDS: MULTIVITAMINS/MINERALS THERAP 1 TAB PO SCH (08:54)
[2021-05-13] MEDS: ASCORBIC ACID 250 MG TAB PO SCH (08:54)
[2021-05-13] MEDS: CLOTRIMAZOLE 10 MG TROCHE PO SCH (08:54)
[2021-05-13] MEDS: PANTOPRAZOLE 40MG TAB (PROTONIX) PO SCH (08:54)
[2021-05-13] MEDS: CYANOCOBALAMIN 500 MCG TAB PO SCH (08:54)
[2021-05-13] MEDS: CEFDINIR 300 MG CAP (OMNICEF) PO SCH (08:55)
[2021-05-13] MEDS: PILOCARPINE 1% OPHTH SOLN 15 ML OU SCH (08:55)
[2021-05-13] MEDS ORDERED: CLOT10TR PO (10:57)
[2021-05-13] MEDS ORDERED: AMOX250T PO (10:57)
[2021-05-13] MEDS ORDERED: VENTAER INH (10:57)
[2021-05-13] MEDS ORDERED: ALBU83IN INH (10:57)
[2021-05-13] MEDS ORDERED: PRED20TA PO (10:57)
[2021-05-13] MEDS ORDERED: LEVO750T13 PO (10:57)
[2021-05-13] MEDS ORDERED: VANC125C3 PO (10:57)
[2021-05-13] MEDS ORDERED: RISATAB3 PO (10:57)
[2021-05-13] MEDS ORDERED: PRED10TA2 PO (11:29)
[2021-05-13] MEDS ORDERED: methylPREDNISolone 125MG 2ML VIAL IV ONE (11:45)
[2021-05-28] MEDS ORDERED: ALBU83IN INH (06:37)
[2021-05-28] MEDS ORDERED: ALBU8.5H INH (06:37)
== END 2021-05-13 13:20 | disposition home health service (06) | DRG 190 ==
LOC: M ED 17:30 → EDBD 17:30 → M ED INP 05-06 00:05 → ENRESERV 05-06 12:50 → M MS4PR 05-06 14:14
PROVIDERS: ADMIT Family Medicine; ATTEND Family Medicine
DX: J47.1 Bronchiectasis with (acute) exacerbation (principal); E43 Unspecified severe protein-calorie malnutrition; N39.0 Urinary tract infection, site not specified; I50.32 Chronic diastolic (congestive) heart failure; N18.4 Chronic kidney disease, stage 4 (severe); J96.11 Chronic respiratory failure with hypoxia; Z68.1 Body mass index [BMI] 19.9 or less, adult; A04.72 Enterocolitis due to Clostridium difficile, not specified as recurrent; I95.9 Hypotension, unspecified; K21.9 Gastro-esophageal reflux disease without esophagitis; D50.9 Iron deficiency anemia, unspecified; H40.9 Unspecified glaucoma; M81.0 Age-related osteoporosis without current pathological fracture; Z98.41 Cataract extraction status, right eye; Z98.42 Cataract extraction status, left eye; Z79.899 Other long term (current) drug therapy; Z88.1 Allergy status to other antibiotic agents; Z88.2 Allergy status to sulfonamides; Z88.8 Allergy status to other drugs, medicaments and biological substances; D69.59 Other secondary thrombocytopenia; K74.60 Unspecified cirrhosis of liver; B96.20 Unspecified Escherichia coli [E. coli] as the cause of diseases classified elsewhere; B96.4 Proteus (mirabilis) (morganii) as the cause of diseases classified elsewhere; Z99.81 Dependence on supplemental oxygen; Z20.822 Contact with and (suspected) exposure to COVID-19

== ENCOUNTER 2021-05-14 13:37 | Emergency (ER) | payer MEDICARE ==
[~2021-05-14] VITALS: Ht 162.6 cm; Wt 50.0 kg
[~2021-05-14 13:37] MED LIST changes: +AMOX250T PO; +CLOT10TR PO; +LEVO750T13 PO; +RHOP0.02 OU; +VANC125C3 PO; +VENTAER INH
[2021-05-14 14:42] LABS: BASO % 0.1 % (0.0-1.0); EOS % 0.2 % (0.0-3.0); HEMATOCRIT 31.8 % (36.0-47.0); HEMOGLOBIN 9.9 g/dl (12.0-15.5); LYMPH # 0.6 10^3/uL (1.5-5.0); LYMPH % 6.8 % (24.0-44.0); MEAN CORPUSCULAR HEMOGLOBIN 30.5 pg (27.0-33.0); MEAN CORPUSCULAR HGB CONC 31.1 g/dl (32.0-36.5); MEAN CORPUSCULAR VOLUME 97.8 fl (80.0-96.0); MONO # 0.1 10^3/uL (0.0-0.8); NEUTROPHILS # 7.5 10^3/uL (1.5-8.5); NEUTROPHILS % 90.9 % (36.0-66.0); PLATELET COUNT, AUTOMATED 128 10^3/uL (150-450); RED BLOOD COUNT 3.25 10^6/uL (4.00-5.40); WHITE BLOOD COUNT 8.2 10^3/uL (4.0-10.0)
[2021-05-14 16:19] LABS: ALBUMIN 2.7 GM/DL (3.2-5.2); BILIRUBIN,DIRECT 0.2 MG/DL (0.0-0.2); BILIRUBIN,TOTAL 0.4 MG/DL (0.2-1.0); CALCIUM LEVEL 9.4 MG/DL (8.8-10.2); CREATININE FOR GFR 1.4 MG/DL (0.55-1.30); GLOMERULAR FILTRATION RATE 38.4 (>32); POTASSIUM SERUM 5.1 MEQ/L (3.5-5.1); THYROID STIMULATING HORMONE 0.957 uIU/ML (0.358-3.740); TOTAL PROTEIN 7.4 GM/DL (6.4-8.2)
[2021-05-14] MEDS ORDERED: NS 500 ML IV ONE (16:50)
[2021-05-14 18:13] VITALS: BP 107/66
== END 2021-05-14 18:42 | disposition home or self-care (01) ==
LOC: EDBD 13:37 → M ED 13:37
DX: E86.0 Dehydration (principal); J44.9 Chronic obstructive pulmonary disease, unspecified; I65.23 Occlusion and stenosis of bilateral carotid arteries; I50.9 Heart failure, unspecified; N18.9 Chronic kidney disease, unspecified; Z88.2 Allergy status to sulfonamides; Z88.1 Allergy status to other antibiotic agents; Z88.8 Allergy status to other drugs, medicaments and biological substances; Z79.899 Other long term (current) drug therapy; Z79.51 Long term (current) use of inhaled steroids

== ENCOUNTER → 2021-05-19 | Outpatient (CLI) | payer MEDICARE ==
[2021-05-19 13:28] LABS: BASO % 0.1 % (0.0-1.0); EOS % 0.2 % (0.0-3.0); HEMATOCRIT 32.9 % (36.0-47.0); HEMOGLOBIN 10.5 g/dl (12.0-15.5); LYMPH # 1.8 10^3/uL (1.5-5.0); LYMPH % 12.1 % (24.0-44.0); MEAN CORPUSCULAR HEMOGLOBIN 30.7 pg (27.0-33.0); MEAN CORPUSCULAR HGB CONC 31.9 g/dl (32.0-36.5); MEAN CORPUSCULAR VOLUME 96.2 fl (80.0-96.0); MONO # 1.1 10^3/uL (0.0-0.8); MONO % 7.8 % (2.0-8.0); NEUTROPHILS # 11.5 10^3/uL (1.5-8.5); NEUTROPHILS % 79.2 % (36.0-66.0); PLATELET COUNT, AUTOMATED 133 10^3/uL (150-450); RED BLOOD COUNT 3.42 10^6/uL (4.00-5.40); WHITE BLOOD COUNT 14.5 10^3/uL (4.0-10.0)
[2021-05-19 14:04] LABS: ALBUMIN 2.9 GM/DL (3.2-5.2); CALCIUM LEVEL 9.8 MG/DL (8.8-10.2); CREATININE FOR GFR 1.59 MG/DL (0.55-1.30); GLOMERULAR FILTRATION RATE 33.2 (>32); POTASSIUM SERUM 4.1 MEQ/L (3.5-5.1); TOTAL PROTEIN 6.9 GM/DL (6.4-8.2)
== END ==
LOC: M PLALAB 10:35
PROVIDERS: ATTEND Physician Assistant Medical
DX: A04.72 Enterocolitis due to Clostridium difficile, not specified as recurrent (principal); J44.1 Chronic obstructive pulmonary disease with (acute) exacerbation

== ENCOUNTER 2021-06-15 10:11 | Inpatient (IN) | payer MEDICARE ==
[~2021-06-15] VITALS: Ht 152.4 cm; Wt 44.0 kg
[~2021-06-15 10:11] MED LIST changes: +ALBU8.5H INH; +ALDA25TA2 PO; +FIDA200TA PO; +PILO1OPD OS; -PILO1OPD OU; +VANC125C10 PO; +VITAMIN A TOP; +[UNRECOGNIZED DRUG - OTHER] TOP
[2021-06-15] MEDS ORDERED: MIRALAX *UNIT DOSE* 17GM PACKET PO PRN (10:45)
[2021-06-15] MEDS ORDERED: ACETAMINOPHEN TAB 650MG DOSE (2X325MG) PO PRN (10:45)
[2021-06-15] MEDS ORDERED: ONDANSETRON 4MG ORAL DISINTEGRATING TAB SL PRN (10:45)
[2021-06-15] MEDS ORDERED: ALBUTEROL 90 MCG/ACT 8GM HFA INHALER INH PRN (10:45)
[2021-06-15] MEDS ORDERED: ALBUTEROL 90 MCG/ACT 8GM HFA INHALER INH SCH (13:00)
[2021-06-15] MEDS ORDERED: REMEDY PHYTOPLEX Z-GUARD PASTE 113GM TUBE (FROM STOREROOM PRODUCT) TOP SCH (16:00)
[2021-06-15 18:00] VITALS: BP 145/63
[2021-06-15] MEDS: LEVALBUTEROL 1.25 MG/0.5 ML CONCENTRATE NEB INH SCH (19:26)
[2021-06-15] MEDS: SYMBICORT 80/4.5MCG INHALER 6GM INH SCH (19:26)
[2021-06-15 20:00] VITALS: BP 119/73
[2021-06-15] MEDS ORDERED: BUDESONIDE 0.5 MG/2 ML INHALATION SUSPENSION INH SCH (20:00)
[2021-06-15] MEDS: LACTOBACILLUS ACIDOPHILUS CAP (BACID) PO SCH (20:06)
[2021-06-15] MEDS: VITAMIN A & D OINTMENT 42.5GM TOP SCH (20:07)
[2021-06-15] MEDS: guaiFENesin 200 MG TAB PO SCH (20:07)
[2021-06-15] MEDS: PANTOPRAZOLE 40MG TAB (PROTONIX) PO SCH (20:07)
[2021-06-15] MEDS: PILOCARPINE 1% OPHTH SOLN 15 ML OU SCH (20:07)
[2021-06-15] MEDS: FIDAXOMICIN 200 MG TAB (DIFICID) PO SCH (21:04)
[2021-06-16] MEDS: LEVALBUTEROL 1.25 MG/0.5 ML CONCENTRATE NEB INH SCH ×4 (02:00→20:22)
[2021-06-16 06:00] VITALS: BP 105/56
[2021-06-16 06:59] LABS: BASO % 0.2 % (0.0-1.0); HEMATOCRIT 34.2 % (36.0-47.0); HEMOGLOBIN 10.4 g/dl (12.0-15.5); LYMPH # 0.7 10^3/uL (1.5-5.0); LYMPH % 12.5 % (24.0-44.0); MEAN CORPUSCULAR HEMOGLOBIN 29.7 pg (27.0-33.0); MEAN CORPUSCULAR HGB CONC 30.4 g/dl (32.0-36.5); MEAN CORPUSCULAR VOLUME 97.7 fl (80.0-96.0); MONO # 0.3 10^3/uL (0.0-0.8); NEUTROPHILS # 4.6 10^3/uL (1.5-8.5); NEUTROPHILS % 80.6 % (36.0-66.0); PLATELET COUNT, AUTOMATED 125 10^3/uL (150-450); WHITE BLOOD COUNT 5.7 10^3/uL (4.0-10.0)
[2021-06-16 07:18] LABS: ALBUMIN 1.8 GM/DL (3.2-5.2); BILIRUBIN,TOTAL 0.6 MG/DL (0.2-1.0); CALCIUM LEVEL 8.4 MG/DL (8.8-10.2); CREATININE FOR GFR 2.02 MG/DL (0.55-1.30); GLOMERULAR FILTRATION RATE 25.2 (>32); POTASSIUM SERUM 4.8 MEQ/L (3.5-5.1); TOTAL PROTEIN 5.6 GM/DL (6.4-8.2)
[2021-06-16] MEDS: TIOTROPIUM INHALER/CAPSULE (SPIRIVA) INH SCH (08:22)
[2021-06-16] MEDS: SYMBICORT 80/4.5MCG INHALER 6GM INH SCH ×2 (08:22→20:22)
[2021-06-16] MEDS: MAGIC MOUTHWASH SUSPENSION BTL SSP SCH ×3 (08:34→17:04)
[2021-06-16] MEDS: PILOCARPINE 1% OPHTH SOLN 15 ML OU SCH ×4 (09:14→20:00)
[2021-06-16] MEDS: FIDAXOMICIN 200 MG TAB (DIFICID) PO SCH ×2 (09:15→20:00)
[2021-06-16] MEDS: VITAMIN A & D OINTMENT 42.5GM TOP SCH ×4 (09:15→20:01)
[2021-06-16] MEDS: MULTIVITAMINS/MINERALS THERAP 1 TAB PO SCH (09:16)
[2021-06-16] MEDS: guaiFENesin 200 MG TAB PO SCH ×3 (09:16→20:00)
[2021-06-16] MEDS: CALCIUM/VITAMIN D 500 MG TAB PO SCH (09:16)
[2021-06-16] MEDS: ASCORBIC ACID 250 MG TAB PO SCH (09:16)
[2021-06-16] MEDS: predniSONE 20 MG TAB PO SCH (09:16)
[2021-06-16] MEDS: PANTOPRAZOLE 40MG TAB (PROTONIX) PO SCH ×2 (09:16→20:00)
[2021-06-16] MEDS: SPIRONOLACTONE 25 MG TAB PO SCH ×2 (09:16→17:03)
[2021-06-16] MEDS: FERROUS SULFATE 325MG TAB PO SCH (09:16)
[2021-06-16] MEDS: LACTOBACILLUS ACIDOPHILUS CAP (BACID) PO SCH ×4 (09:16→20:00)
[2021-06-16] MEDS ORDERED: LevoFLOXacin 500 MG TABLET PO ONE (11:15)
[2021-06-16] MEDS ORDERED: MIDO2.5T PO (11:44)
[2021-06-16] MEDS ORDERED: MED NOTE (11:44)
[2021-06-16] MEDS ORDERED: HOME MED LIST COMPLETE! XX SCH (11:45)
[2021-06-16 14:00] VITALS: BP 143/68
[2021-06-16] MEDS ORDERED: FERR325T19 PO (16:42)
[2021-06-16 20:00] VITALS: BP 138/66
[2021-06-17] MEDS: LEVALBUTEROL 1.25 MG/0.5 ML CONCENTRATE NEB INH SCH ×4 (02:00→20:00)
[2021-06-17 06:00] VITALS: BP 94/50
[2021-06-17] MEDS: LevoFLOXacin 500 MG TABLET PO SCH (06:33)
[2021-06-17] MEDS: TIOTROPIUM INHALER/CAPSULE (SPIRIVA) INH SCH (07:41)
[2021-06-17] MEDS: SYMBICORT 80/4.5MCG INHALER 6GM INH SCH ×2 (07:41→20:07)
[2021-06-17] MEDS: FIDAXOMICIN 200 MG TAB (DIFICID) PO SCH ×2 (08:30→20:41)
[2021-06-17] MEDS: MAGIC MOUTHWASH SUSPENSION BTL SSP SCH ×3 (08:30→18:01)
[2021-06-17] MEDS: FERROUS SULFATE 325MG TAB PO SCH (08:30)
[2021-06-17] MEDS: PANTOPRAZOLE 40MG TAB (PROTONIX) PO SCH ×2 (08:30→20:41)
[2021-06-17] MEDS: CALCIUM/VITAMIN D 500 MG TAB PO SCH (08:30)
[2021-06-17] MEDS: guaiFENesin 200 MG TAB PO SCH ×3 (08:30→20:41)
[2021-06-17] MEDS: MULTIVITAMINS/MINERALS THERAP 1 TAB PO SCH (08:30)
[2021-06-17] MEDS: LACTOBACILLUS ACIDOPHILUS CAP (BACID) PO SCH ×4 (08:31→20:41)
[2021-06-17] MEDS: predniSONE 20 MG TAB PO SCH (08:31)
[2021-06-17] MEDS: ASCORBIC ACID 250 MG TAB PO SCH (08:31)
[2021-06-17] MEDS: VITAMIN A & D OINTMENT 42.5GM TOP SCH ×4 (08:32→20:44)
[2021-06-17] MEDS: PILOCARPINE 1% OPHTH SOLN 15 ML OU SCH ×4 (08:32→20:41)
[2021-06-17] MEDS: SPIRONOLACTONE 25 MG TAB PO SCH ×2 (08:35→18:01)
[2021-06-17] MEDS ORDERED: LevoFLOXacin IV 500 MG in IV 1 EA IV SCH (09:00)
[2021-06-17] MEDS ORDERED: LevoFLOXacin 250 MG TABLET PO SCH (09:00)
[2021-06-17 10:25] LABS: BASO % 0.2 % (0.0-1.0); HEMATOCRIT 33.8 % (36.0-47.0); HEMOGLOBIN 10.5 g/dl (12.0-15.5); LYMPH # 1.2 10^3/uL (1.5-5.0); LYMPH % 11.5 % (24.0-44.0); MEAN CORPUSCULAR HEMOGLOBIN 29.3 pg (27.0-33.0); MEAN CORPUSCULAR HGB CONC 31.1 g/dl (32.0-36.5); MEAN CORPUSCULAR VOLUME 94.4 fl (80.0-96.0); NEUTROPHILS # 7.8 10^3/uL (1.5-8.5); PLATELET COUNT, AUTOMATED 178 10^3/uL (150-450); RED BLOOD COUNT 3.58 10^6/uL (4.00-5.40); WHITE BLOOD COUNT 10.1 10^3/uL (4.0-10.0)
[2021-06-17 10:52] LABS: CALCIUM LEVEL 8.3 MG/DL (8.8-10.2); CREATININE FOR GFR 2.08 MG/DL (0.55-1.30); GLOMERULAR FILTRATION RATE 24.3 (>32)
[2021-06-17 14:00] VITALS: BP 146/69
[2021-06-17] MEDS ORDERED: LevoFLOXacin IV 750 MG in IV 1 EA IV SCH (16:00)
[2021-06-17] MEDS: MIDODRINE 2.5 MG TAB PO SCH (18:00)
[2021-06-17 21:11] VITALS: BP 109/61
[2021-06-18] MEDS: LEVALBUTEROL 1.25 MG/0.5 ML CONCENTRATE NEB INH SCH ×4 (01:47→20:00)
[2021-06-18 06:08] VITALS: BP 104/53
[2021-06-18] MEDS: MAGIC MOUTHWASH SUSPENSION BTL SSP SCH ×3 (07:30→17:00)
[2021-06-18] MEDS: TIOTROPIUM INHALER/CAPSULE (SPIRIVA) INH SCH (07:32)
[2021-06-18] MEDS: SYMBICORT 80/4.5MCG INHALER 6GM INH SCH ×2 (07:33→20:00)
[2021-06-18] MEDS: SPIRONOLACTONE 25 MG TAB PO SCH (09:00)
[2021-06-18] MEDS: PANTOPRAZOLE 40MG TAB (PROTONIX) PO SCH ×2 (09:50→21:08)
[2021-06-18] MEDS: PILOCARPINE 1% OPHTH SOLN 15 ML OU SCH ×4 (09:50→21:09)
[2021-06-18] MEDS: CALCIUM/VITAMIN D 500 MG TAB PO SCH (09:50)
[2021-06-18] MEDS: FIDAXOMICIN 200 MG TAB (DIFICID) PO SCH ×2 (09:50→21:08)
[2021-06-18] MEDS: LACTOBACILLUS ACIDOPHILUS CAP (BACID) PO SCH ×4 (09:51→21:08)
[2021-06-18] MEDS: MULTIVITAMINS/MINERALS THERAP 1 TAB PO SCH (09:51)
[2021-06-18] MEDS: ASCORBIC ACID 250 MG TAB PO SCH (09:51)
[2021-06-18] MEDS: FERROUS SULFATE 325MG TAB PO SCH (09:51)
[2021-06-18] MEDS: guaiFENesin 200 MG TAB PO SCH ×3 (09:51→21:08)
[2021-06-18] MEDS: VITAMIN A & D OINTMENT 42.5GM TOP SCH ×4 (09:52→21:09)
[2021-06-18] MEDS: predniSONE 20 MG TAB PO SCH (09:54)
[2021-06-18] MEDS: MIDODRINE 2.5 MG TAB PO SCH (09:56)
[2021-06-18 09:58] VITALS: BP 107/54
[2021-06-18] MEDS ORDERED: FUROSEMIDE 20MG/2ML VIAL (J1940) IV ONE (11:30)
[2021-06-18] MEDS ORDERED: FUROSEMIDE 20 MG TAB PO ONE (12:00)
[2021-06-18] MEDS ORDERED: MIDODRINE 5 MG TAB PO SCH (16:00)
[2021-06-18 20:00] VITALS: BP 125/76
[2021-06-19] MEDS: LEVALBUTEROL 1.25 MG/0.5 ML CONCENTRATE NEB INH SCH ×4 (01:56→20:00)
[2021-06-19 05:33] VITALS: BP 108/82
[2021-06-19] MEDS: LevoFLOXacin 500 MG TABLET PO SCH (05:46)
[2021-06-19] MEDS: TIOTROPIUM INHALER/CAPSULE (SPIRIVA) INH SCH (07:00)
[2021-06-19] MEDS: SYMBICORT 80/4.5MCG INHALER 6GM INH SCH ×2 (07:00→20:20)
[2021-06-19 08:23] LABS: BASO % 0.1 % (0.0-1.0); EOS % 0.1 % (0.0-3.0); HEMATOCRIT 33.5 % (36.0-47.0); HEMOGLOBIN 10.2 g/dl (12.0-15.5); LYMPH # 1.6 10^3/uL (1.5-5.0); LYMPH % 15.4 % (24.0-44.0); MEAN CORPUSCULAR HGB CONC 30.4 g/dl (32.0-36.5); MEAN CORPUSCULAR VOLUME 95.2 fl (80.0-96.0); MONO # 0.9 10^3/uL (0.0-0.8); MONO % 8.7 % (2.0-8.0); NEUTROPHILS # 7.5 10^3/uL (1.5-8.5); NEUTROPHILS % 74.3 % (36.0-66.0); PLATELET COUNT, AUTOMATED 123 10^3/uL (150-450); RED BLOOD COUNT 3.52 10^6/uL (4.00-5.40); WHITE BLOOD COUNT 10.1 10^3/uL (4.0-10.0)
[2021-06-19 08:32] LABS: CALCIUM LEVEL 8.3 MG/DL (8.8-10.2); CREATININE FOR GFR 1.92 MG/DL (0.55-1.30); GLOMERULAR FILTRATION RATE 26.7 (>32); POTASSIUM SERUM 5.8 MEQ/L (3.5-5.1)
[2021-06-19] MEDS: MAGIC MOUTHWASH SUSPENSION BTL SSP SCH ×3 (10:08→17:30)
[2021-06-19] MEDS: guaiFENesin 200 MG TAB PO SCH ×3 (10:12→21:04)
[2021-06-19] MEDS: ASCORBIC ACID 250 MG TAB PO SCH (10:12)
[2021-06-19] MEDS: LACTOBACILLUS ACIDOPHILUS CAP (BACID) PO SCH ×4 (10:13→21:04)
[2021-06-19] MEDS: FERROUS SULFATE 325MG TAB PO SCH (10:13)
[2021-06-19] MEDS: PANTOPRAZOLE 40MG TAB (PROTONIX) PO SCH ×2 (10:13→21:04)
[2021-06-19] MEDS: CALCIUM/VITAMIN D 500 MG TAB PO SCH (10:13)
[2021-06-19] MEDS: FIDAXOMICIN 200 MG TAB (DIFICID) PO SCH ×2 (10:13→21:04)
[2021-06-19] MEDS: MIDODRINE 5 MG TAB PO SCH ×3 (10:13→17:30)
[2021-06-19] MEDS: predniSONE 20 MG TAB PO SCH (10:13)
[2021-06-19] MEDS: PILOCARPINE 1% OPHTH SOLN 15 ML OU SCH ×4 (10:14→21:04)
[2021-06-19] MEDS: VITAMIN A & D OINTMENT 42.5GM TOP SCH ×4 (10:14→21:05)
[2021-06-19] MEDS: PATIROMER SORBITEX CALCIUM 8.4 GM POWDER PACKET (VELTASSA) PO SCH (12:46)
[2021-06-19] MEDS: FUROSEMIDE 40 MG TAB PO SCH (12:46)
[2021-06-19 14:00] VITALS: BP 145/84
[2021-06-19 20:00] VITALS: BP 123/50
[2021-06-20] MEDS: LEVALBUTEROL 1.25 MG/0.5 ML CONCENTRATE NEB INH SCH ×4 (03:10→20:21)
[2021-06-20 06:00] VITALS: BP 97/53
[2021-06-20] MEDS: MAGIC MOUTHWASH SUSPENSION BTL SSP SCH ×3 (07:30→17:30)
[2021-06-20] MEDS: SYMBICORT 80/4.5MCG INHALER 6GM INH SCH ×2 (07:42→20:21)
[2021-06-20] MEDS: TIOTROPIUM INHALER/CAPSULE (SPIRIVA) INH SCH (07:42)
[2021-06-20] MEDS: LACTOBACILLUS ACIDOPHILUS CAP (BACID) PO SCH ×4 (08:00→21:00)
[2021-06-20] MEDS: MIDODRINE 5 MG TAB PO SCH ×3 (08:00→17:32)
[2021-06-20] MEDS: guaiFENesin 200 MG TAB PO SCH ×3 (10:15→21:00)
[2021-06-20] MEDS: FIDAXOMICIN 200 MG TAB (DIFICID) PO SCH ×2 (10:15→21:00)
[2021-06-20] MEDS: CALCIUM/VITAMIN D 500 MG TAB PO SCH (10:15)
[2021-06-20] MEDS: PANTOPRAZOLE 40MG TAB (PROTONIX) PO SCH ×2 (10:15→21:00)
[2021-06-20] MEDS: FERROUS SULFATE 325MG TAB PO SCH (10:15)
[2021-06-20] MEDS: FUROSEMIDE 40 MG TAB PO SCH (10:15)
[2021-06-20] MEDS: ASCORBIC ACID 250 MG TAB PO SCH (10:16)
[2021-06-20] MEDS: predniSONE 20 MG TAB PO SCH (10:16)
[2021-06-20] MEDS: PILOCARPINE 1% OPHTH SOLN 15 ML OU SCH ×4 (10:19→21:02)
[2021-06-20] MEDS: VITAMIN A & D OINTMENT 42.5GM TOP SCH ×4 (10:19→21:01)
[2021-06-20 12:00] VITALS: BP 110/62
[2021-06-20 14:00] VITALS: BP 137/84
[2021-06-20 15:00] LABS: CALCIUM LEVEL 8.8 MG/DL (8.8-10.2); CREATININE FOR GFR 2.1 MG/DL (0.55-1.30); GLOMERULAR FILTRATION RATE 24.1 (>32); POTASSIUM SERUM 4.1 MEQ/L (3.5-5.1)
[2021-06-20] MEDS: PATIROMER SORBITEX CALCIUM 8.4 GM POWDER PACKET (VELTASSA) PO SCH (16:15)
[2021-06-20 20:00] VITALS: BP 138/62
[2021-06-21] MEDS: LEVALBUTEROL 1.25 MG/0.5 ML CONCENTRATE NEB INH SCH ×4 (02:00→19:38)
[2021-06-21] MEDS: LevoFLOXacin 500 MG TABLET PO SCH (05:30)
[2021-06-21 06:00] VITALS: BP 88/52
[2021-06-21] MEDS: MIDODRINE 5 MG TAB PO SCH ×3 (06:10→16:41)
[2021-06-21 07:12] VITALS: BP 96/58
[2021-06-21] MEDS: MAGIC MOUTHWASH SUSPENSION BTL SSP SCH ×3 (07:30→16:41)
[2021-06-21] MEDS: SYMBICORT 80/4.5MCG INHALER 6GM INH SCH ×2 (07:35→19:38)
[2021-06-21] MEDS: TIOTROPIUM INHALER/CAPSULE (SPIRIVA) INH SCH (07:35)
[2021-06-21] MEDS: LACTOBACILLUS ACIDOPHILUS CAP (BACID) PO SCH ×4 (08:49→20:27)
[2021-06-21] MEDS: predniSONE 20 MG TAB PO SCH (08:49)
[2021-06-21] MEDS: CALCIUM/VITAMIN D 500 MG TAB PO SCH (08:49)
[2021-06-21] MEDS: PANTOPRAZOLE 40MG TAB (PROTONIX) PO SCH ×2 (08:49→20:27)
[2021-06-21] MEDS: guaiFENesin 200 MG TAB PO SCH ×3 (08:49→20:28)
[2021-06-21 08:50] VITALS: BP 111/61
[2021-06-21] MEDS: FIDAXOMICIN 200 MG TAB (DIFICID) PO SCH ×2 (08:50→20:28)
[2021-06-21] MEDS: FERROUS SULFATE 325MG TAB PO SCH (08:50)
[2021-06-21] MEDS: ASCORBIC ACID 250 MG TAB PO SCH (08:50)
[2021-06-21] MEDS: FUROSEMIDE 40 MG TAB PO SCH ×2 (08:51→16:41)
[2021-06-21] MEDS: VITAMIN A & D OINTMENT 42.5GM TOP SCH ×4 (08:51→20:28)
[2021-06-21] MEDS: PILOCARPINE 1% OPHTH SOLN 15 ML OU SCH ×4 (08:51→20:28)
[2021-06-21] MEDS: PATIROMER SORBITEX CALCIUM 8.4 GM POWDER PACKET (VELTASSA) PO SCH (12:00)
[2021-06-21 14:00] VITALS: BP 120/64
[2021-06-21 20:00] VITALS: BP 122/70
[2021-06-22] MEDS: LEVALBUTEROL 1.25 MG/0.5 ML CONCENTRATE NEB INH SCH ×4 (01:35→19:26)
[2021-06-22 06:00] VITALS: BP 127/60
[2021-06-22] MEDS: TIOTROPIUM INHALER/CAPSULE (SPIRIVA) INH SCH (07:15)
[2021-06-22] MEDS: SYMBICORT 80/4.5MCG INHALER 6GM INH SCH ×2 (07:15→19:25)
[2021-06-22] MEDS: MAGIC MOUTHWASH SUSPENSION BTL SSP SCH ×3 (07:30→17:26)
[2021-06-22 08:21] LABS: BASO % 0.1 % (0.0-1.0); EOS % 0.1 % (0.0-3.0); HEMATOCRIT 35.5 % (36.0-47.0); HEMOGLOBIN 11.2 g/dl (12.0-15.5); LYMPH # 2.6 10^3/uL (1.5-5.0); LYMPH % 16.6 % (24.0-44.0); MEAN CORPUSCULAR HEMOGLOBIN 29.7 pg (27.0-33.0); MEAN CORPUSCULAR HGB CONC 31.5 g/dl (32.0-36.5); MEAN CORPUSCULAR VOLUME 94.2 fl (80.0-96.0); MONO % 6.2 % (2.0-8.0); NEUTROPHILS % 75.9 % (36.0-66.0); PLATELET COUNT, AUTOMATED 128 10^3/uL (150-450); RED BLOOD COUNT 3.77 10^6/uL (4.00-5.40); WHITE BLOOD COUNT 15.8 10^3/uL (4.0-10.0)
[2021-06-22 08:48] LABS: CALCIUM LEVEL 8.6 MG/DL (8.8-10.2); CREATININE FOR GFR 2.22 MG/DL (0.55-1.30); GLOMERULAR FILTRATION RATE 22.6 (>32); POTASSIUM SERUM 3.3 MEQ/L (3.5-5.1)
[2021-06-22] MEDS: LACTOBACILLUS ACIDOPHILUS CAP (BACID) PO SCH ×4 (08:57→21:00)
[2021-06-22] MEDS: PANTOPRAZOLE 40MG TAB (PROTONIX) PO SCH ×2 (08:57→21:00)
[2021-06-22] MEDS: MIDODRINE 5 MG TAB PO SCH ×3 (08:57→17:26)
[2021-06-22] MEDS: guaiFENesin 200 MG TAB PO SCH ×3 (08:57→20:59)
[2021-06-22] MEDS: FIDAXOMICIN 200 MG TAB (DIFICID) PO SCH ×2 (08:57→20:59)
[2021-06-22] MEDS: PILOCARPINE 1% OPHTH SOLN 15 ML OU SCH ×4 (08:58→21:00)
[2021-06-22] MEDS: VITAMIN A & D OINTMENT 42.5GM TOP SCH ×4 (08:58→21:00)
[2021-06-22] MEDS: FERROUS SULFATE 325MG TAB PO SCH (08:58)
[2021-06-22] MEDS: ASCORBIC ACID 250 MG TAB PO SCH (08:58)
[2021-06-22] MEDS: predniSONE 10 MG TAB PO SCH (08:58)
[2021-06-22] MEDS: CALCIUM/VITAMIN D 500 MG TAB PO SCH (08:58)
[2021-06-22] MEDS: FUROSEMIDE 40 MG TAB PO SCH ×2 (08:58→17:26)
[2021-06-22] MEDS ORDERED: POTASSIUM CHLORIDE 10MEQ SR TABLET PO ONE (09:00)
[2021-06-22 14:00] VITALS: BP 119/59
[2021-06-22 19:43] VITALS: BP 115/73
[2021-06-22] MEDS ORDERED: PROPRANOLOL 10 MG TAB PO SCH (21:00)
[2021-06-23] MEDS: LEVALBUTEROL 1.25 MG/0.5 ML CONCENTRATE NEB INH SCH ×4 (01:06→19:36)
[2021-06-23] MEDS: LevoFLOXacin 500 MG TABLET PO SCH (05:12)
[2021-06-23 05:40] VITALS: BP 153/69
[2021-06-23] MEDS: SYMBICORT 80/4.5MCG INHALER 6GM INH SCH ×2 (07:19→19:36)
[2021-06-23] MEDS: TIOTROPIUM INHALER/CAPSULE (SPIRIVA) INH SCH (07:19)
[2021-06-23] MEDS: guaiFENesin 200 MG TAB PO SCH ×3 (09:07→21:58)
[2021-06-23] MEDS: MIDODRINE 5 MG TAB PO SCH ×3 (09:08→16:14)
[2021-06-23] MEDS: LACTOBACILLUS ACIDOPHILUS CAP (BACID) PO SCH ×4 (09:08→21:58)
[2021-06-23] MEDS: CALCIUM/VITAMIN D 500 MG TAB PO SCH (09:08)
[2021-06-23] MEDS: MAGIC MOUTHWASH SUSPENSION BTL SSP SCH ×3 (09:08→17:10)
[2021-06-23] MEDS: FUROSEMIDE 40 MG TAB PO SCH ×2 (09:08→16:14)
[2021-06-23] MEDS: FERROUS SULFATE 325MG TAB PO SCH (09:08)
[2021-06-23] MEDS: FIDAXOMICIN 200 MG TAB (DIFICID) PO SCH ×2 (09:08→21:58)
[2021-06-23] MEDS: PANTOPRAZOLE 40MG TAB (PROTONIX) PO SCH ×2 (09:08→21:57)
[2021-06-23] MEDS: predniSONE 10 MG TAB PO SCH (09:08)
[2021-06-23] MEDS: PILOCARPINE 1% OPHTH SOLN 15 ML OU SCH ×4 (09:09→21:58)
[2021-06-23] MEDS: VITAMIN A & D OINTMENT 42.5GM TOP SCH ×4 (09:09→21:59)
[2021-06-23] MEDS: ASCORBIC ACID 250 MG TAB PO SCH (09:09)
[2021-06-23 10:09] LABS: CALCIUM LEVEL 8.7 MG/DL (8.8-10.2); CREATININE FOR GFR 2.25 MG/DL (0.55-1.30); GLOMERULAR FILTRATION RATE 22.2 (>32); POTASSIUM SERUM 3.5 MEQ/L (3.5-5.1)
[2021-06-23] MEDS ORDERED: POTASSIUM CHLORIDE 10MEQ SR TABLET PO ONE (12:50)
[2021-06-23 14:00] VITALS: BP 149/69
[2021-06-23] MEDS: NYSTATIN 500,000 U/5 ML SUSP UDC SS SCH ×2 (17:57→21:57)
[2021-06-23 20:00] VITALS: BP 134/65
[2021-06-24] MEDS: LEVALBUTEROL 1.25 MG/0.5 ML CONCENTRATE NEB INH SCH ×4 (00:53→19:40)
[2021-06-24 06:00] VITALS: BP 102/52
[2021-06-24 07:08] LABS: BASO % 0.1 % (0.0-1.0); EOS % 0.1 % (0.0-3.0); HEMATOCRIT 32.5 % (36.0-47.0); HEMOGLOBIN 10.6 g/dl (12.0-15.5); LYMPH # 1.5 10^3/uL (1.5-5.0); LYMPH % 11.8 % (24.0-44.0); MEAN CORPUSCULAR HEMOGLOBIN 29.8 pg (27.0-33.0); MEAN CORPUSCULAR HGB CONC 32.6 g/dl (32.0-36.5); MEAN CORPUSCULAR VOLUME 91.3 fl (80.0-96.0); MONO # 0.8 10^3/uL (0.0-0.8); MONO % 6.1 % (2.0-8.0); NEUTROPHILS # 10.5 10^3/uL (1.5-8.5); NEUTROPHILS % 80.7 % (36.0-66.0); RED BLOOD COUNT 3.56 10^6/uL (4.00-5.40)
[2021-06-24 07:09] LABS: PLATELET COUNT, AUTOMATED 87 10^3/uL (150-450)
[2021-06-24] MEDS: TIOTROPIUM INHALER/CAPSULE (SPIRIVA) INH SCH (07:21)
[2021-06-24] MEDS: SYMBICORT 80/4.5MCG INHALER 6GM INH SCH ×2 (07:21→19:40)
[2021-06-24 07:30] LABS: CALCIUM LEVEL 8.7 MG/DL (8.8-10.2); CREATININE FOR GFR 2.29 MG/DL (0.55-1.30); GLOMERULAR FILTRATION RATE 21.8 (>32); MAGNESIUM LEVEL 1.5 MG/DL (1.8-2.4); POTASSIUM SERUM 3.4 MEQ/L (3.5-5.1)
[2021-06-24] MEDS: guaiFENesin 200 MG TAB PO SCH ×3 (08:19→20:15)
[2021-06-24] MEDS: predniSONE 10 MG TAB PO SCH (08:19)
[2021-06-24] MEDS: PANTOPRAZOLE 40MG TAB (PROTONIX) PO SCH ×2 (08:19→20:16)
[2021-06-24] MEDS: FERROUS SULFATE 325MG TAB PO SCH (08:20)
[2021-06-24] MEDS: ASCORBIC ACID 250 MG TAB PO SCH (08:20)
[2021-06-24] MEDS: NYSTATIN 500,000 U/5 ML SUSP UDC SS SCH ×4 (08:20→20:15)
[2021-06-24] MEDS: CALCIUM/VITAMIN D 500 MG TAB PO SCH (08:20)
[2021-06-24] MEDS: FIDAXOMICIN 200 MG TAB (DIFICID) PO SCH ×2 (08:21→20:15)
[2021-06-24] MEDS: MIDODRINE 5 MG TAB PO SCH ×3 (08:21→16:29)
[2021-06-24] MEDS: LACTOBACILLUS ACIDOPHILUS CAP (BACID) PO SCH ×4 (08:21→20:15)
[2021-06-24] MEDS: PILOCARPINE 1% OPHTH SOLN 15 ML OU SCH ×4 (08:23→20:16)
[2021-06-24] MEDS: VITAMIN A & D OINTMENT 42.5GM TOP SCH ×4 (08:24→20:16)
[2021-06-24] MEDS: MAGIC MOUTHWASH SUSPENSION BTL SSP SCH ×3 (08:25→16:31)
[2021-06-24] MEDS ORDERED: POTASSIUM CHLORIDE 10MEQ SR TABLET PO SCH ×2 (09:00→21:00)
[2021-06-24] MEDS: FUROSEMIDE 40 MG TAB PO SCH ×2 (09:00→16:29)
[2021-06-24 09:22] VITALS: BP 102/51
[2021-06-24 11:00] VITALS: BP 130/90
[2021-06-24] MEDS: MAGNESIUM OXIDE 400MG TAB (MAG-OX) PO SCH ×2 (12:12→20:16)
[2021-06-24 14:00] VITALS: BP 124/58
[2021-06-24] MEDS ORDERED: POTASSIUM CHLORIDE 10MEQ SR TABLET PO ONE (14:00)
[2021-06-24 15:53] VITALS: BP 132/60
[2021-06-24 20:00] VITALS: BP 147/78
[2021-06-25] MEDS: LEVALBUTEROL 1.25 MG/0.5 ML CONCENTRATE NEB INH SCH ×4 (02:00→20:00)
[2021-06-25] MEDS: LevoFLOXacin 500 MG TABLET PO SCH (05:11)
[2021-06-25 06:00] VITALS: BP 106/55
[2021-06-25 07:05] LABS: CALCIUM LEVEL 8.2 MG/DL (8.8-10.2); CREATININE FOR GFR 2.47 MG/DL (0.55-1.30); POTASSIUM SERUM 3.6 MEQ/L (3.5-5.1)
[2021-06-25] MEDS: MAGIC MOUTHWASH SUSPENSION BTL SSP SCH ×3 (07:30→17:27)
[2021-06-25] MEDS: TIOTROPIUM INHALER/CAPSULE (SPIRIVA) INH SCH (07:54)
[2021-06-25] MEDS: SYMBICORT 80/4.5MCG INHALER 6GM INH SCH ×2 (07:55→20:14)
[2021-06-25] MEDS: FUROSEMIDE 40 MG TAB PO SCH ×2 (08:04→16:08)
[2021-06-25] MEDS: ASCORBIC ACID 250 MG TAB PO SCH (08:16)
[2021-06-25] MEDS: FERROUS SULFATE 325MG TAB PO SCH (08:16)
[2021-06-25] MEDS: NYSTATIN 500,000 U/5 ML SUSP UDC SS SCH ×4 (08:16→20:06)
[2021-06-25] MEDS: guaiFENesin 200 MG TAB PO SCH ×3 (08:16→20:06)
[2021-06-25] MEDS: CALCIUM/VITAMIN D 500 MG TAB PO SCH (08:17)
[2021-06-25] MEDS: MIDODRINE 5 MG TAB PO SCH ×3 (08:17→15:13)
[2021-06-25] MEDS: predniSONE 10 MG TAB PO SCH (08:17)
[2021-06-25] MEDS: MAGNESIUM OXIDE 400MG TAB (MAG-OX) PO SCH ×2 (08:17→20:06)
[2021-06-25] MEDS: POTASSIUM CHLORIDE 10MEQ SR TABLET PO SCH (08:17)
[2021-06-25] MEDS: PANTOPRAZOLE 40MG TAB (PROTONIX) PO SCH ×2 (08:18→20:06)
[2021-06-25] MEDS: PILOCARPINE 1% OPHTH SOLN 15 ML OU SCH ×4 (08:18→20:06)
[2021-06-25] MEDS: LACTOBACILLUS ACIDOPHILUS CAP (BACID) PO SCH ×4 (08:18→20:06)
[2021-06-25] MEDS: FIDAXOMICIN 200 MG TAB (DIFICID) PO SCH ×2 (08:18→20:06)
[2021-06-25] MEDS: VITAMIN A & D OINTMENT 42.5GM TOP SCH ×4 (08:19→20:07)
[2021-06-25 11:33] VITALS: BP 140/70
[2021-06-25 14:00] VITALS: BP 148/72
[2021-06-25 20:00] VITALS: BP 113/59
[2021-06-26] MEDS: LEVALBUTEROL 1.25 MG/0.5 ML CONCENTRATE NEB INH SCH ×4 (01:20→19:33)
[2021-06-26 06:00] VITALS: BP 106/58
[2021-06-26] MEDS: SYMBICORT 80/4.5MCG INHALER 6GM INH SCH ×2 (07:05→19:34)
[2021-06-26] MEDS: TIOTROPIUM INHALER/CAPSULE (SPIRIVA) INH SCH (07:05)
[2021-06-26] MEDS: MAGIC MOUTHWASH SUSPENSION BTL SSP SCH ×3 (08:00→17:23)
[2021-06-26] MEDS: MAGNESIUM OXIDE 400MG TAB (MAG-OX) PO SCH ×2 (09:05→21:54)
[2021-06-26] MEDS: MIDODRINE 5 MG TAB PO SCH ×3 (09:05→15:43)
[2021-06-26] MEDS: ASCORBIC ACID 250 MG TAB PO SCH (09:05)
[2021-06-26] MEDS: LACTOBACILLUS ACIDOPHILUS CAP (BACID) PO SCH ×4 (09:05→21:55)
[2021-06-26] MEDS: FERROUS SULFATE 325MG TAB PO SCH (09:05)
[2021-06-26] MEDS: PANTOPRAZOLE 40MG TAB (PROTONIX) PO SCH ×2 (09:05→21:55)
[2021-06-26] MEDS: CALCIUM/VITAMIN D 500 MG TAB PO SCH (09:06)
[2021-06-26] MEDS: predniSONE 10 MG TAB PO SCH (09:06)
[2021-06-26] MEDS: FIDAXOMICIN 200 MG TAB (DIFICID) PO SCH ×2 (09:06→21:55)
[2021-06-26] MEDS: NYSTATIN 500,000 U/5 ML SUSP UDC SS SCH ×4 (09:06→21:54)
[2021-06-26] MEDS: FUROSEMIDE 40 MG TAB PO SCH ×2 (09:06→17:22)
[2021-06-26] MEDS: guaiFENesin 200 MG TAB PO SCH ×3 (09:06→21:54)
[2021-06-26] MEDS: POTASSIUM CHLORIDE 10MEQ SR TABLET PO SCH (09:06)
[2021-06-26] MEDS: VITAMIN A & D OINTMENT 42.5GM TOP SCH ×4 (09:07→21:55)
[2021-06-26] MEDS: PILOCARPINE 1% OPHTH SOLN 15 ML OU SCH ×4 (09:07→21:55)
[2021-06-26 10:03] LABS: BASO % 0.2 % (0.0-1.0); EOS % 0.2 % (0.0-3.0); HEMATOCRIT 34.9 % (36.0-47.0); HEMOGLOBIN 10.9 g/dl (12.0-15.5); LYMPH # 1.2 10^3/uL (1.5-5.0); LYMPH % 9.2 % (24.0-44.0); MEAN CORPUSCULAR HEMOGLOBIN 28.7 pg (27.0-33.0); MEAN CORPUSCULAR HGB CONC 31.2 g/dl (32.0-36.5); MEAN CORPUSCULAR VOLUME 91.8 fl (80.0-96.0); MONO # 0.9 10^3/uL (0.0-0.8); MONO % 6.8 % (2.0-8.0); NEUTROPHILS # 10.8 10^3/uL (1.5-8.5); NEUTROPHILS % 82.6 % (36.0-66.0)
[2021-06-26 10:04] LABS: PLATELET COUNT, AUTOMATED 38 10^3/uL (150-450)
[2021-06-26 10:44] LABS: CALCIUM LEVEL 8.3 MG/DL (8.8-10.2); CREATININE FOR GFR 2.32 MG/DL (0.55-1.30); GLOMERULAR FILTRATION RATE 21.4 (>32); POTASSIUM SERUM 3.6 MEQ/L (3.5-5.1)
[2021-06-26 14:00] VITALS: BP 151/71
[2021-06-26 20:28] VITALS: BP 122/58
[2021-06-27] MEDS: LEVALBUTEROL 1.25 MG/0.5 ML CONCENTRATE NEB INH SCH ×4 (02:00→19:42)
[2021-06-27 05:57] VITALS: BP 113/57
[2021-06-27] MEDS: TIOTROPIUM INHALER/CAPSULE (SPIRIVA) INH SCH (07:17)
[2021-06-27] MEDS: SYMBICORT 80/4.5MCG INHALER 6GM INH SCH ×2 (07:18→19:42)
[2021-06-27 07:39] LABS: ALBUMIN 2.5 GM/DL (3.2-5.2); CALCIUM LEVEL 8.9 MG/DL (8.8-10.2); CREATININE FOR GFR 2.14 MG/DL (0.55-1.30); GLOMERULAR FILTRATION RATE 23.5 (>32); PHOSPHORUS LEVEL 2.6 MG/DL (2.5-4.9); POTASSIUM SERUM 4.1 MEQ/L (3.5-5.1)
[2021-06-27] MEDS: predniSONE 20 MG TAB PO SCH (09:30)
[2021-06-27] MEDS: CALCIUM/VITAMIN D 500 MG TAB PO SCH (09:30)
[2021-06-27] MEDS: MIDODRINE 5 MG TAB PO SCH ×3 (09:31→17:03)
[2021-06-27] MEDS: guaiFENesin 200 MG TAB PO SCH ×3 (09:31→21:17)
[2021-06-27] MEDS: PANTOPRAZOLE 40MG TAB (PROTONIX) PO SCH ×2 (09:31→21:17)
[2021-06-27] MEDS: MAGNESIUM OXIDE 400MG TAB (MAG-OX) PO SCH ×2 (09:31→21:17)
[2021-06-27] MEDS: FIDAXOMICIN 200 MG TAB (DIFICID) PO SCH ×2 (09:31→21:16)
[2021-06-27] MEDS: FERROUS SULFATE 325MG TAB PO SCH (09:31)
[2021-06-27] MEDS: NYSTATIN 500,000 U/5 ML SUSP UDC SS SCH ×4 (09:31→21:17)
[2021-06-27] MEDS: FUROSEMIDE 40 MG TAB PO SCH ×2 (09:31→17:04)
[2021-06-27] MEDS: ASCORBIC ACID 250 MG TAB PO SCH (09:32)
[2021-06-27] MEDS: POTASSIUM CHLORIDE 10MEQ SR TABLET PO SCH (09:32)
[2021-06-27] MEDS: LACTOBACILLUS ACIDOPHILUS CAP (BACID) PO SCH ×4 (09:32→21:17)
[2021-06-27] MEDS: MAGIC MOUTHWASH SUSPENSION BTL SSP SCH ×3 (09:32→17:04)
[2021-06-27] MEDS: PILOCARPINE 1% OPHTH SOLN 15 ML OU SCH ×4 (09:33→21:20)
[2021-06-27] MEDS: VITAMIN A & D OINTMENT 42.5GM TOP SCH ×4 (09:33→21:17)
[2021-06-27 14:00] VITALS: BP 167/69
[2021-06-27 17:05] VITALS: BP 114/57
[2021-06-27 19:40] VITALS: BP 129/60
[2021-06-28] MEDS: LEVALBUTEROL 1.25 MG/0.5 ML CONCENTRATE NEB INH SCH ×4 (01:10→20:00)
[2021-06-28 05:41] VITALS: BP 135/71
[2021-06-28] MEDS: SYMBICORT 80/4.5MCG INHALER 6GM INH SCH ×2 (07:26→20:16)
[2021-06-28] MEDS: TIOTROPIUM INHALER/CAPSULE (SPIRIVA) INH SCH (07:26)
[2021-06-28] MEDS: predniSONE 20 MG TAB PO SCH (09:42)
[2021-06-28] MEDS: FIDAXOMICIN 200 MG TAB (DIFICID) PO SCH ×2 (09:42→21:51)
[2021-06-28] MEDS: MAGNESIUM OXIDE 400MG TAB (MAG-OX) PO SCH ×2 (09:42→21:51)
[2021-06-28] MEDS: PANTOPRAZOLE 40MG TAB (PROTONIX) PO SCH ×2 (09:43→21:51)
[2021-06-28] MEDS: ASCORBIC ACID 250 MG TAB PO SCH (09:43)
[2021-06-28] MEDS: LACTOBACILLUS ACIDOPHILUS CAP (BACID) PO SCH ×4 (09:43→21:51)
[2021-06-28] MEDS: POTASSIUM CHLORIDE 10MEQ SR TABLET PO SCH (09:43)
[2021-06-28] MEDS: guaiFENesin 200 MG TAB PO SCH ×3 (09:43→21:51)
[2021-06-28] MEDS: FUROSEMIDE 40 MG TAB PO SCH ×2 (09:43→17:43)
[2021-06-28] MEDS: VITAMIN A & D OINTMENT 42.5GM TOP SCH ×4 (09:44→21:53)
[2021-06-28] MEDS: NYSTATIN 500,000 U/5 ML SUSP UDC SS SCH ×4 (09:44→21:50)
[2021-06-28] MEDS: CALCIUM/VITAMIN D 500 MG TAB PO SCH (09:44)
[2021-06-28] MEDS: MIDODRINE 5 MG TAB PO SCH ×3 (09:44→17:44)
[2021-06-28] MEDS: FERROUS SULFATE 325MG TAB PO SCH (09:44)
[2021-06-28] MEDS: PILOCARPINE 1% OPHTH SOLN 15 ML OU SCH ×4 (09:45→21:52)
[2021-06-28] MEDS: MAGIC MOUTHWASH SUSPENSION BTL SSP SCH ×3 (09:45→17:45)
[2021-06-28 12:54] VITALS: BP 112/57
[2021-06-28 17:49] VITALS: BP 115/56
[2021-06-28 20:00] VITALS: BP 139/64
[2021-06-29 06:00] VITALS: BP 114/53
[2021-06-29] MEDS: LEVALBUTEROL 1.25 MG/0.5 ML CONCENTRATE NEB INH SCH ×2 (07:52→08:06)
[2021-06-29] MEDS: SYMBICORT 80/4.5MCG INHALER 6GM INH SCH (08:06)
[2021-06-29] MEDS: TIOTROPIUM INHALER/CAPSULE (SPIRIVA) INH SCH (08:06)
[2021-06-29] MEDS ORDERED: MIDO5TA PO (09:38)
[2021-06-29] MEDS ORDERED: FIDA200TA PO (09:38)
[2021-06-29] MEDS ORDERED: PRED10TA2 PO (09:38)
[2021-06-29] MEDS ORDERED: MAGN400T2 PO (09:38)
[2021-06-29] MEDS ORDERED: SYMB80INH INH (09:38)
[2021-06-29] MEDS ORDERED: TIOT18INH INH (09:38)
[2021-06-29] MEDS ORDERED: PANT40TA29 PO (09:38)
[2021-06-29] MEDS ORDERED: RISATAB3 PO (09:38)
[2021-06-29] MEDS ORDERED: POTA-136 PO (09:38)
[2021-06-29] MEDS ORDERED: FURO40TA2 PO (09:38)
[2021-06-29] MEDS ORDERED: LEVA12INH INH ×2 (09:38→12:55)
[2021-06-29] MEDS: MAGIC MOUTHWASH SUSPENSION BTL SSP SCH ×2 (09:53→13:05)
[2021-06-29] MEDS: FIDAXOMICIN 200 MG TAB (DIFICID) PO SCH (09:58)
[2021-06-29] MEDS: MAGNESIUM OXIDE 400MG TAB (MAG-OX) PO SCH (09:58)
[2021-06-29] MEDS: FERROUS SULFATE 325MG TAB PO SCH (09:58)
[2021-06-29] MEDS: CALCIUM/VITAMIN D 500 MG TAB PO SCH (09:58)
[2021-06-29] MEDS: guaiFENesin 200 MG TAB PO SCH (09:58)
[2021-06-29] MEDS: LACTOBACILLUS ACIDOPHILUS CAP (BACID) PO SCH (09:58)
[2021-06-29] MEDS: ASCORBIC ACID 250 MG TAB PO SCH (09:58)
[2021-06-29] MEDS: predniSONE 20 MG TAB PO SCH (09:58)
[2021-06-29] MEDS: PANTOPRAZOLE 40MG TAB (PROTONIX) PO SCH (09:58)
[2021-06-29] MEDS: MIDODRINE 5 MG TAB PO SCH (09:58)
[2021-06-29] MEDS: NYSTATIN 500,000 U/5 ML SUSP UDC SS SCH (09:58)
[2021-06-29] MEDS: FUROSEMIDE 40 MG TAB PO SCH (09:59)
[2021-06-29] MEDS: PILOCARPINE 1% OPHTH SOLN 15 ML OU SCH ×2 (09:59→13:05)
[2021-06-29] MEDS: VITAMIN A & D OINTMENT 42.5GM TOP SCH ×2 (09:59→13:05)
[2021-06-29] MEDS: POTASSIUM CHLORIDE 10MEQ SR TABLET PO SCH (09:59)
[2021-07-02] MEDS ORDERED: predniSONE 10 MG TAB PO SCH (09:00)
== END 2021-06-29 13:15 | disposition home health service (06) | DRG 206 ==
LOC: M PM&R 18:38
PROVIDERS: ADMIT Physical Medicine & Rehabilitation; ATTEND Physical Medicine & Rehabilitation
DX: R09.02 Hypoxemia (principal); I85.10 Secondary esophageal varices without bleeding; I50.32 Chronic diastolic (congestive) heart failure; N18.4 Chronic kidney disease, stage 4 (severe); J47.1 Bronchiectasis with (acute) exacerbation; A04.72 Enterocolitis due to Clostridium difficile, not specified as recurrent; K74.60 Unspecified cirrhosis of liver; K21.00 Gastro-esophageal reflux disease with esophagitis, without bleeding; K80.20 Calculus of gallbladder without cholecystitis without obstruction; D50.9 Iron deficiency anemia, unspecified; H40.9 Unspecified glaucoma; Z66 Do not resuscitate; Z74.09 Other reduced mobility; Z74.1 Need for assistance with personal care; R13.10 Dysphagia, unspecified; J84.10 Pulmonary fibrosis, unspecified; R06.00 Dyspnea, unspecified; R60.0 Localized edema; E87.5 Hyperkalemia; R53.81 Other malaise; B96.5 Pseudomonas (aeruginosa) (mallei) (pseudomallei) as the cause of diseases classified elsewhere; B96.1 Klebsiella pneumoniae [K. pneumoniae] as the cause of diseases classified elsewhere; R00.0 Tachycardia, unspecified; I95.9 Hypotension, unspecified; Z98.41 Cataract extraction status, right eye; Z98.42 Cataract extraction status, left eye; Z79.899 Other long term (current) drug therapy; Z88.1 Allergy status to other antibiotic agents; Z88.2 Allergy status to sulfonamides; Z88.8 Allergy status to other drugs, medicaments and biological substances; E83.42 Hypomagnesemia; R53.1 Weakness

== ENCOUNTER 2021-07-03 14:48 | Outpatient (CLI) | payer MEDICARE ==
[~2021-07-03] VITALS: Ht 152.4 cm; Wt 44.0 kg
[~2021-07-03 14:48] MED LIST changes: +FERR325T19 PO; +LEVA12INH INH; +MAGN400T2 PO; +MED NOTE; +MIDO5TA PO; +POTA-136 PO; +SYMB80INH INH; +TIOT18INH INH
[2021-07-03 15:00] VITALS: BP 120/57
[2021-07-03] MEDS ORDERED: BEZLOTOXUMAB 500 MG in NS 100 ML IV ONE (16:00)
[2021-07-03 17:45] VITALS: BP 140/62
== END 2021-07-03 17:25 | disposition home or self-care (01) ==
LOC: M INFU 14:48
PROVIDERS: ATTEND Physical Medicine & Rehabilitation
DX: A04.72 Enterocolitis due to Clostridium difficile, not specified as recurrent (principal); Z88.1 Allergy status to other antibiotic agents; Z88.2 Allergy status to sulfonamides; Z88.8 Allergy status to other drugs, medicaments and biological substances
CPT/HCPCS: 96365; J0565

== ENCOUNTER 2021-07-10 12:34 | Inpatient (IN) | payer MEDICARE ==
[~2021-07-10] VITALS: Ht 152.4 cm; Wt 43.7 kg
[~2021-07-10 12:34] MED LIST changes: +ALBU2.5V10 INH; +ALBU2.5V10 NEB; -ALBU83IN INH; -ALBU83IN NEB
[2021-07-10] MEDS ORDERED: NS 500 ML IV ONE ×2 (13:35→16:05)
[2021-07-10 14:10] LABS: VENOUS BASE EXCESS -2.7 (-2.0-2.0); VENOUS HCO3 23.7 MEQ/L (23.0-27.0); VENOUS O2 SATURATION 51.1 % (60.0-80.0); VENOUS PARTIAL PRESSURE CO2 47.9 mmHg (38.0-50.0); VENOUS PARTIAL PRESSURE O2 28.2 mmHg (30.0-50.0); VENOUS PH 7.313 UNITS (7.330-7.430); VENOUS STANDARD HCO3 21.3 MEQ/L; VENOUS TOTAL CO2 25.2 MEQ/L (24.0-28.0)
[2021-07-10 14:18] LABS: BASO % 0.1 % (0.0-1.0); HEMATOCRIT 35.3 % (36.0-47.0); HEMOGLOBIN 11.1 g/dl (12.0-15.5); LYMPH # 0.4 10^3/uL (1.5-5.0); LYMPH % 3.3 % (24.0-44.0); MEAN CORPUSCULAR HEMOGLOBIN 29.4 pg (27.0-33.0); MEAN CORPUSCULAR HGB CONC 31.4 g/dl (32.0-36.5); MEAN CORPUSCULAR VOLUME 93.6 fl (80.0-96.0); MONO # 0.5 10^3/uL (0.0-0.8); MONO % 4.3 % (2.0-8.0); NEUTROPHILS # 10.1 10^3/uL (1.5-8.5); NEUTROPHILS % 91.5 % (36.0-66.0); RED BLOOD COUNT 3.77 10^6/uL (4.00-5.40); WHITE BLOOD COUNT 11.1 10^3/uL (4.0-10.0)
[2021-07-10 14:19] LABS: PLATELET COUNT, AUTOMATED 89 10^3/uL (150-450)
[2021-07-10 14:43] LABS: CK-MB VALUE MASS 6.7 NG/ML (<3.6); MB/CK RELATIVE INDEX 5.28 (< OR =4)
[2021-07-10 14:53] LABS: ALBUMIN 2.2 GM/DL (3.2-5.2); ALT/SGPT 52 U/L (12-78); BILIRUBIN,DIRECT 0.2 MG/DL (0.0-0.2); BILIRUBIN,TOTAL 0.8 MG/DL (0.2-1.0); BLOOD UREA NITROGEN 50 MG/DL (7-18); CALCIUM LEVEL 8.9 MG/DL (8.8-10.2); CARBON DIOXIDE LEVEL 23 MEQ/L (21-32); CHLORIDE LEVEL 112 MEQ/L (98-107); CREATININE FOR GFR 2.58 MG/DL (0.55-1.30); ETHYL ALCOHOL (ETHANOL) < 0.003 % (0.000-0.010); GLUCOSE, FASTING 158 MG/DL (70-100); SALICYLATE LEVEL < 1.7 MG/DL (5.0-30.0); SODIUM LEVEL 141 MEQ/L (136-145); TOTAL PROTEIN 6.2 GM/DL (6.4-8.2)
[2021-07-10 15:03] LABS: OSMOLALITY SERUM 307 MOSM/KG (280-301)
[2021-07-10] MEDS ORDERED: FUROSEMIDE 40 MG TAB PO SCH (17:00)
[2021-07-10 17:09] LABS: AMPHETAMINES LEVEL URINE NEGATIVE (NEGATIVE); BARBITURATES URINE NEGATIVE (NEGATIVE); BENZODIAZEPINES URINE NEGATIVE (NEGATIVE); CANNABINOIDS URINE NEGATIVE (NEGATIVE); COCAINE METABOLITE URINE NEGATIVE (NEGATIVE); METHADONE URINE NEGATIVE (NEGATIVE); OPIATES URINE NEGATIVE (NEGATIVE); PHENCYCLIDINE URINE NEGATIVE (NEGATIVE)
[2021-07-10] MEDS ORDERED: NYST50SS SS (17:40)
[2021-07-10] MEDS ORDERED: INCR1INH INH (17:40)
[2021-07-10] MEDS ORDERED: ACETAMINOPHEN TAB 650MG DOSE (2X325MG) PO PRN (18:05)
[2021-07-10] MEDS ORDERED: MOM 30ML SUSPENSION UDC PO PRN (18:05)
[2021-07-10] MEDS ORDERED: MAALOX 30 ML SUSP *UDC PO PRN (18:05)
[2021-07-10] MEDS ORDERED: FURO40TA2 PO (18:21)
[2021-07-10] MEDS ORDERED: POTA10CA32 PO (18:21)
[2021-07-10] MEDS ORDERED: [UNRECOGNIZED DRUG - CODE] NEB (18:21)
[2021-07-10] MEDS ORDERED: SYMB16INH INH (18:21)
[2021-07-10] MEDS ORDERED: MIDO5TA PO (18:21)
[2021-07-10] MEDS ORDERED: RISATAB3 PO (18:47)
[2021-07-10] MEDS ORDERED: PRED10TA2 PO (18:47)
[2021-07-10] MEDS ORDERED: HOME MED LIST COMPLETE! XX SCH (18:50)
[2021-07-10] MEDS: PILOCARPINE 1% OPHTH SOLN 15 ML OS SCH (21:00)
[2021-07-10] MEDS: BALMEX CREAM 60GM TOP SCH (21:00)
[2021-07-10] MEDS: SYMBICORT 160/4.5MCG INHALER 6GM INH SCH (22:39)
[2021-07-10 22:48] VITALS: BP 101/67
[2021-07-11 06:09] VITALS: BP 109/68
[2021-07-11] MEDS ORDERED: NS 1,000 ML IV ONE (07:30)
[2021-07-11] MEDS: TIOTROPIUM INHALER/CAPSULE (SPIRIVA) INH SCH (07:31)
[2021-07-11] MEDS: SYMBICORT 160/4.5MCG INHALER 6GM INH SCH ×2 (07:31→19:24)
[2021-07-11 08:10] VITALS: BP 110/58
[2021-07-11 08:15] LABS: ALBUMIN 2.3 GM/DL (3.2-5.2); CALCIUM LEVEL 8.6 MG/DL (8.8-10.2); CREATININE FOR GFR 2.2 MG/DL (0.55-1.30); GLOMERULAR FILTRATION RATE 22.8 (>32); MAGNESIUM LEVEL 2.2 MG/DL (1.8-2.4); POTASSIUM SERUM 4.3 MEQ/L (3.5-5.1); TOTAL PROTEIN 5.5 GM/DL (6.4-8.2)
[2021-07-11 08:19] LABS: BASO % 0.1 % (0.0-1.0); EOS % 0.3 % (0.0-3.0); HEMATOCRIT 36.2 % (36.0-47.0); HEMOGLOBIN 11.4 g/dl (12.0-15.5); LYMPH % 6.8 % (24.0-44.0); MEAN CORPUSCULAR HEMOGLOBIN 29.6 pg (27.0-33.0); MEAN CORPUSCULAR HGB CONC 31.5 g/dl (32.0-36.5); MONO # 0.5 10^3/uL (0.0-0.8); MONO % 3.2 % (2.0-8.0); NEUTROPHILS # 12.8 10^3/uL (1.5-8.5); NEUTROPHILS % 88.9 % (36.0-66.0); RED BLOOD COUNT 3.85 10^6/uL (4.00-5.40); WHITE BLOOD COUNT 14.4 10^3/uL (4.0-10.0)
[2021-07-11 08:24] LABS: PLATELET COUNT, AUTOMATED 76 10^3/uL (150-450)
[2021-07-11] MEDS ORDERED: FUROSEMIDE 40MG/4ML VIAL (J1940) IV ONE (08:55)
[2021-07-11 08:59] LABS: CK-MB VALUE MASS 5.3 NG/ML (<3.6); MB/CK RELATIVE INDEX 5.25 (< OR =4)
[2021-07-11] MEDS ORDERED: LACTOBACILLUS ACIDOPHILUS CAP (BACID) PO SCH (09:00)
[2021-07-11] MEDS ORDERED: predniSONE 10 MG TAB PO SCH (09:00)
[2021-07-11] MEDS: HEPARIN SOD (PORCINE) 5000UNITS/ML 1ML VIAL/SYRINGE SQ SCH ×2 (09:00→20:18)
[2021-07-11] MEDS: POTASSIUM CHLORIDE 10MEQ SR TABLET PO SCH (09:19)
[2021-07-11] MEDS: PIPERACILLIN/TAZOBACTAM SOD 4.5 GM in D5W MINI-BAG PLUS 50 ML IV SCH ×2 (09:19→20:18)
[2021-07-11] MEDS: FERROUS SULFATE 325MG TAB PO SCH (09:20)
[2021-07-11] MEDS: MIDODRINE 5 MG TAB PO SCH ×3 (09:20→16:36)
[2021-07-11] MEDS: MULTIVITAMINS/MINERALS THERAP 1 TAB PO SCH (09:20)
[2021-07-11] MEDS: LACTOBACILLUS ACIDOPHILUS CAP (BACID) PO SCH ×2 (09:20→16:36)
[2021-07-11] MEDS: PILOCARPINE 1% OPHTH SOLN 15 ML OS SCH ×4 (09:21→20:19)
[2021-07-11] MEDS: BALMEX CREAM 60GM TOP SCH ×2 (09:21→20:19)
[2021-07-11] MEDS: ASCORBIC ACID 250 MG TAB PO SCH (09:27)
[2021-07-11 12:28] VITALS: BP 123/65
[2021-07-11] MEDS: IPRATROPIUM 0.5MG/ALBUTEROL 2.5MG INH SOL UD 3ML (DUONEB) NEB SCH ×2 (13:20→19:24)
[2021-07-11] MEDS: methylPREDNISolone 125MG 2ML VIAL IV SCH ×2 (13:58→21:47)
[2021-07-11] MEDS: FIDAXOMICIN 200 MG TAB (DIFICID) PO SCH ×2 (14:38→20:18)
[2021-07-11 15:20] VITALS: BP 125/65
[2021-07-11 20:13] VITALS: BP 126/60
[2021-07-12 00:23] VITALS: BP 136/66
[2021-07-12] MEDS: IPRATROPIUM 0.5MG/ALBUTEROL 2.5MG INH SOL UD 3ML (DUONEB) NEB SCH ×4 (01:34→19:53)
[2021-07-12 04:19] VITALS: BP 141/61
[2021-07-12] MEDS: methylPREDNISolone 125MG 2ML VIAL IV SCH ×3 (05:40→22:54)
[2021-07-12] MEDS: SYMBICORT 160/4.5MCG INHALER 6GM INH SCH ×2 (07:39→19:53)
[2021-07-12 08:00] VITALS: BP 143/75
[2021-07-12] MEDS: TIOTROPIUM INHALER/CAPSULE (SPIRIVA) INH SCH (08:00)
[2021-07-12] MEDS: ASCORBIC ACID 250 MG TAB PO SCH (08:23)
[2021-07-12] MEDS: LACTOBACILLUS ACIDOPHILUS CAP (BACID) PO SCH ×2 (08:23→17:06)
[2021-07-12] MEDS: FERROUS SULFATE 325MG TAB PO SCH (08:23)
[2021-07-12] MEDS: MULTIVITAMINS/MINERALS THERAP 1 TAB PO SCH (08:23)
[2021-07-12] MEDS: MIDODRINE 5 MG TAB PO SCH ×3 (08:23→16:00)
[2021-07-12] MEDS: POTASSIUM CHLORIDE 10MEQ SR TABLET PO SCH (08:23)
[2021-07-12] MEDS: FIDAXOMICIN 200 MG TAB (DIFICID) PO SCH ×2 (08:23→20:18)
[2021-07-12] MEDS: PIPERACILLIN/TAZOBACTAM SOD 4.5 GM in D5W MINI-BAG PLUS 50 ML IV SCH ×2 (08:24→20:18)
[2021-07-12] MEDS: BALMEX CREAM 60GM TOP SCH ×2 (08:24→20:19)
[2021-07-12] MEDS: PILOCARPINE 1% OPHTH SOLN 15 ML OS SCH ×4 (08:24→20:18)
[2021-07-12 11:43] LABS: BASO % 0.1 % (0.0-1.0); HEMATOCRIT 33.5 % (36.0-47.0); HEMOGLOBIN 10.8 g/dl (12.0-15.5); LYMPH # 0.5 10^3/uL (1.5-5.0); LYMPH % 4.9 % (24.0-44.0); MEAN CORPUSCULAR HEMOGLOBIN 29.7 pg (27.0-33.0); MEAN CORPUSCULAR HGB CONC 32.2 g/dl (32.0-36.5); MONO # 0.2 10^3/uL (0.0-0.8); MONO % 2.6 % (2.0-8.0); NEUTROPHILS # 8.4 10^3/uL (1.5-8.5); NEUTROPHILS % 91.9 % (36.0-66.0); RED BLOOD COUNT 3.64 10^6/uL (4.00-5.40); WHITE BLOOD COUNT 9.1 10^3/uL (4.0-10.0)
[2021-07-12 11:45] LABS: PLATELET COUNT, AUTOMATED 76 10^3/uL (150-450)
[2021-07-12 11:58] VITALS: BP 145/58
[2021-07-12 12:00] LABS: ALBUMIN 2.2 GM/DL (3.2-5.2); BILIRUBIN,TOTAL 0.7 MG/DL (0.2-1.0); CALCIUM LEVEL 8.7 MG/DL (8.8-10.2); CREATININE FOR GFR 2.71 MG/DL (0.55-1.30); GLOMERULAR FILTRATION RATE 17.9 (>32); MAGNESIUM LEVEL 2.2 MG/DL (1.8-2.4); POTASSIUM SERUM 6.6 MEQ/L (3.5-5.1); TOTAL PROTEIN 6.5 GM/DL (6.4-8.2)
[2021-07-12] MEDS: HEPARIN SOD (PORCINE) 5000UNITS/ML 1ML VIAL/SYRINGE SQ SCH ×2 (12:06→20:06)
[2021-07-12] MEDS ORDERED: PATIROMER SORBITEX CALCIUM 8.4 GM POWDER PACKET (VELTASSA) PO ONE (15:00)
[2021-07-12 16:00] VITALS: BP 137/69
[2021-07-12] MEDS ORDERED: FUROSEMIDE 40MG/4ML VIAL (J1940) IV ONE (17:00)
[2021-07-12 20:00] VITALS: BP 143/69
[2021-07-13] VITALS: BP 136/64
[2021-07-13] MEDS: IPRATROPIUM 0.5MG/ALBUTEROL 2.5MG INH SOL UD 3ML (DUONEB) NEB SCH ×4 (02:33→20:00)
[2021-07-13] MEDS ORDERED: ONDANSETRON 4MG/2ML VIAL IV PRN (02:35)
[2021-07-13 04:00] VITALS: BP 112/74
[2021-07-13] MEDS: methylPREDNISolone 125MG 2ML VIAL IV SCH ×3 (05:58→21:16)
[2021-07-13 08:00] VITALS: BP 127/68
[2021-07-13] MEDS: PIPERACILLIN/TAZOBACTAM SOD 4.5 GM in D5W MINI-BAG PLUS 50 ML IV SCH ×2 (08:00→21:16)
[2021-07-13] MEDS: LACTOBACILLUS ACIDOPHILUS CAP (BACID) PO SCH ×3 (08:00→18:44)
[2021-07-13] MEDS: MIDODRINE 5 MG TAB PO SCH ×4 (08:00→16:00)
[2021-07-13 08:14] LABS: BASO % 0.1 % (0.0-1.0); HEMATOCRIT 34.4 % (36.0-47.0); LYMPH # 0.4 10^3/uL (1.5-5.0); LYMPH % 3.6 % (24.0-44.0); MEAN CORPUSCULAR HEMOGLOBIN 29.3 pg (27.0-33.0); MEAN CORPUSCULAR VOLUME 91.5 fl (80.0-96.0); MONO # 0.2 10^3/uL (0.0-0.8); MONO % 2.3 % (2.0-8.0); NEUTROPHILS # 9.4 10^3/uL (1.5-8.5); NEUTROPHILS % 93.4 % (36.0-66.0); RED BLOOD COUNT 3.76 10^6/uL (4.00-5.40); WHITE BLOOD COUNT 10.1 10^3/uL (4.0-10.0)
[2021-07-13] MEDS: SYMBICORT 160/4.5MCG INHALER 6GM INH SCH ×2 (08:17→20:02)
[2021-07-13] MEDS: TIOTROPIUM INHALER/CAPSULE (SPIRIVA) INH SCH (08:17)
[2021-07-13 08:19] LABS: PLATELET COUNT, AUTOMATED 67 10^3/uL (150-450)
[2021-07-13 08:34] LABS: CALCIUM LEVEL 8.9 MG/DL (8.8-10.2); CREATININE FOR GFR 2.68 MG/DL (0.55-1.30); GLOMERULAR FILTRATION RATE 18.2 (>32); POTASSIUM SERUM 3.9 MEQ/L (3.5-5.1)
[2021-07-13 08:35] LABS: ALBUMIN 2.1 GM/DL (3.2-5.2); BILIRUBIN,TOTAL 0.6 MG/DL (0.2-1.0); TOTAL PROTEIN 5.8 GM/DL (6.4-8.2)
[2021-07-13] MEDS: FIDAXOMICIN 200 MG TAB (DIFICID) PO SCH ×3 (09:00→21:18)
[2021-07-13] MEDS: MULTIVITAMINS/MINERALS THERAP 1 TAB PO SCH ×2 (09:00→09:42)
[2021-07-13] MEDS: ASCORBIC ACID 250 MG TAB PO SCH ×2 (09:00→09:42)
[2021-07-13] MEDS: HEPARIN SOD (PORCINE) 5000UNITS/ML 1ML VIAL/SYRINGE SQ SCH ×2 (09:00→21:00)
[2021-07-13] MEDS: FERROUS SULFATE 325MG TAB PO SCH ×2 (09:00→09:42)
[2021-07-13] MEDS: BALMEX CREAM 60GM TOP SCH ×2 (09:44→21:18)
[2021-07-13] MEDS: PILOCARPINE 1% OPHTH SOLN 15 ML OS SCH ×4 (09:44→21:17)
[2021-07-13 12:00] VITALS: BP 127/68
[2021-07-13] MEDS ORDERED: FUROSEMIDE 40MG/4ML VIAL (J1940) IV ONE (14:50)
[2021-07-13 16:00] VITALS: BP 159/99
[2021-07-13 20:00] VITALS: BP 128/84
[2021-07-13] MEDS ORDERED: FIDAXOMICIN 200 MG TAB (DIFICID) PO SCH (21:00)
[2021-07-14] VITALS: BP 127/63
[2021-07-14] MEDS: IPRATROPIUM 0.5MG/ALBUTEROL 2.5MG INH SOL UD 3ML (DUONEB) NEB SCH ×4 (00:55→20:00)
[2021-07-14 04:00] VITALS: BP 118/64
[2021-07-14] MEDS: methylPREDNISolone 125MG 2ML VIAL IV SCH ×2 (05:48→14:00)
[2021-07-14 06:29] LABS: BASO % 0.1 % (0.0-1.0); HEMATOCRIT 34.1 % (36.0-47.0); HEMOGLOBIN 10.8 g/dl (12.0-15.5); LYMPH # 0.4 10^3/uL (1.5-5.0); MEAN CORPUSCULAR HGB CONC 31.7 g/dl (32.0-36.5); MEAN CORPUSCULAR VOLUME 91.7 fl (80.0-96.0); MONO # 0.4 10^3/uL (0.0-0.8); MONO % 2.7 % (2.0-8.0); NEUTROPHILS % 93.6 % (36.0-66.0); RED BLOOD COUNT 3.72 10^6/uL (4.00-5.40); WHITE BLOOD COUNT 13.9 10^3/uL (4.0-10.0)
[2021-07-14] MEDS ORDERED: FLUCONAZOLE 50MG TABLET PO ONE (06:30)
[2021-07-14 06:32] LABS: PLATELET COUNT, AUTOMATED 75 10^3/uL (150-450)
[2021-07-14 06:45] LABS: CREATININE FOR GFR 2.47 MG/DL (0.55-1.30); POTASSIUM SERUM 3.6 MEQ/L (3.5-5.1)
[2021-07-14 06:46] LABS: BILIRUBIN,TOTAL 0.6 MG/DL (0.2-1.0); CALCIUM LEVEL 9.2 MG/DL (8.8-10.2); MAGNESIUM LEVEL 2.1 MG/DL (1.8-2.4); TOTAL PROTEIN 5.7 GM/DL (6.4-8.2)
[2021-07-14 08:30] VITALS: BP 122/65
[2021-07-14] MEDS: HEPARIN SOD (PORCINE) 5000UNITS/ML 1ML VIAL/SYRINGE SQ SCH ×2 (09:00→21:00)
[2021-07-14] MEDS: TERCONAZOLE-7 VAGINAL CREAM PV SCH (09:00)
[2021-07-14] MEDS: FERROUS SULFATE 325MG TAB PO SCH (09:00)
[2021-07-14] MEDS: TIOTROPIUM INHALER/CAPSULE (SPIRIVA) INH SCH (09:01)
[2021-07-14] MEDS: SYMBICORT 160/4.5MCG INHALER 6GM INH SCH ×2 (09:01→20:23)
[2021-07-14] MEDS: FIDAXOMICIN 200 MG TAB (DIFICID) PO SCH ×2 (09:45→20:05)
[2021-07-14] MEDS: MULTIVITAMINS/MINERALS THERAP 1 TAB PO SCH (09:46)
[2021-07-14] MEDS: MIDODRINE 5 MG TAB PO SCH ×3 (09:46→16:00)
[2021-07-14] MEDS: ASCORBIC ACID 250 MG TAB PO SCH (09:46)
[2021-07-14] MEDS: LACTOBACILLUS ACIDOPHILUS CAP (BACID) PO SCH ×2 (09:46→17:02)
[2021-07-14] MEDS: PILOCARPINE 1% OPHTH SOLN 15 ML OS SCH ×4 (09:47→20:05)
[2021-07-14] MEDS: BALMEX CREAM 60GM TOP SCH ×2 (09:48→20:05)
[2021-07-14] MEDS: PIPERACILLIN/TAZOBACTAM SOD 4.5 GM in D5W MINI-BAG PLUS 50 ML IV SCH ×2 (09:50→20:04)
[2021-07-14 16:19] VITALS: BP 139/78
[2021-07-14 20:00] VITALS: BP 123/76
[2021-07-14 20:38] LABS: INR 1.37; PROTHROMBIN TIME 17.3 SECONDS (12.7-14.5)
[2021-07-14 20:39] LABS: PARTIAL THROMBOPLASTIN TIME 33.2 SECONDS (25.9-37.0)
[2021-07-14] MEDS ORDERED: TERCONAZOLE-7 VAGINAL CREAM PV SCH (21:00)
[2021-07-15] VITALS (15 sets, daily range): BP systolic 55–109; BP diastolic 26–64
[2021-07-15] MEDS ORDERED: NS 1,000 ML IV ONE ×3 (01:05→11:35)
[2021-07-15] MEDS: IPRATROPIUM 0.5MG/ALBUTEROL 2.5MG INH SOL UD 3ML (DUONEB) NEB SCH ×3 (01:48→15:13)
[2021-07-15] MEDS ORDERED: SODIUM CHLORIDE 0.9% 1000ML IV ONE (04:35)
[2021-07-15 05:52] LABS: BASO % 0.1 % (0.0-1.0); HEMATOCRIT 27.1 % (36.0-47.0); LYMPH % 5.1 % (24.0-44.0); MEAN CORPUSCULAR HEMOGLOBIN 28.9 pg (27.0-33.0); MEAN CORPUSCULAR HGB CONC 30.3 g/dl (32.0-36.5); MEAN CORPUSCULAR VOLUME 95.4 fl (80.0-96.0); MONO # 1.4 10^3/uL (0.0-0.8); MONO % 6.9 % (2.0-8.0); NEUTROPHILS # 17.3 10^3/uL (1.5-8.5); NEUTROPHILS % 85.7 % (36.0-66.0); PLATELET COUNT, AUTOMATED 82 10^3/uL (150-450); RED BLOOD COUNT 2.84 10^6/uL (4.00-5.40); WHITE BLOOD COUNT 20.2 10^3/uL (4.0-10.0)
[2021-07-15 05:53] LABS: HEMOGLOBIN 8.2 g/dl (12.0-15.5)
[2021-07-15 06:15] LABS: ALBUMIN 1.5 GM/DL (3.2-5.2); BILIRUBIN,TOTAL 0.5 MG/DL (0.2-1.0); CREATININE FOR GFR 2.72 MG/DL (0.55-1.30); GLOMERULAR FILTRATION RATE 17.9 (>32); MAGNESIUM LEVEL 1.7 MG/DL (1.8-2.4); POTASSIUM SERUM 3.7 MEQ/L (3.5-5.1); TOTAL PROTEIN 4.5 GM/DL (6.4-8.2)
[2021-07-15] MEDS ORDERED: MAGNESIUM OXIDE 400MG TAB (MAG-OX) PO ONE (07:15)
[2021-07-15] MEDS: LACTOBACILLUS ACIDOPHILUS CAP (BACID) PO SCH (08:17)
[2021-07-15] MEDS: FIDAXOMICIN 200 MG TAB (DIFICID) PO SCH (08:17)
[2021-07-15] MEDS: PIPERACILLIN/TAZOBACTAM SOD 4.5 GM in D5W MINI-BAG PLUS 50 ML IV SCH (08:17)
[2021-07-15] MEDS: MIDODRINE 5 MG TAB PO SCH (08:18)
[2021-07-15] MEDS: PILOCARPINE 1% OPHTH SOLN 15 ML OS SCH (08:18)
[2021-07-15] MEDS: TERCONAZOLE-7 VAGINAL CREAM PV SCH (08:19)
[2021-07-15] MEDS: BALMEX CREAM 60GM TOP SCH (08:20)
[2021-07-15] MEDS: HEPARIN SOD (PORCINE) 5000UNITS/ML 1ML VIAL/SYRINGE SQ SCH (08:31)
[2021-07-15] MEDS: SYMBICORT 160/4.5MCG INHALER 6GM INH SCH (09:00)
[2021-07-15] MEDS: TIOTROPIUM INHALER/CAPSULE (SPIRIVA) INH SCH (09:00)
[2021-07-15] MEDS ORDERED: MORPHINE 2 MG/ML 1ML VIAL IV PRN (12:00)
[2021-07-15] MEDS ORDERED: ALBUTEROL SULFATE 2.5 MG/0.5 ML INH NEB SOLN NEB PRN (12:00)
[2021-07-15] MEDS ORDERED: LORazepam 2 MG/ML VIAL IV PRN (12:00)
[2021-07-15] MEDS ORDERED: HYOSCYAMINE SULFATE 0.125 MG SUBL TABLET PO PRN (12:00)
[2021-07-16 16:08] LABS: BODY FLUID CULTURE Not indicated. (.); LEGIONELLA ANTIGEN URINE Negative (Negative); ORGANISM ID Not indicated. (.); SPECIMEN SOURCE Urine (.); URINE STREP PNEUMONIAE ANTIGEN Negative (Negative)
== END 2021-07-15 18:39 | disposition expired | DRG 871 ==
LOC: M ED 12:34 → M ED INP 18:05 → M MS5PR 22:38 → M PCU 07-11 15:10
PROVIDERS: ADMIT Family Medicine; ATTEND Internal Medicine Nephrology
DX: A41.9 Sepsis, unspecified organism (principal); E43 Unspecified severe protein-calorie malnutrition; N39.0 Urinary tract infection, site not specified; J84.9 Interstitial pulmonary disease, unspecified; E87.2 Acidosis; I13.0 Hypertensive heart and chronic kidney disease with heart failure and stage 1 through stage 4 chronic kidney disease, or unspecified chronic kidney disease; N18.4 Chronic kidney disease, stage 4 (severe); K76.6 Portal hypertension; D62 Acute posthemorrhagic anemia; R18.8 Other ascites; A04.72 Enterocolitis due to Clostridium difficile, not specified as recurrent; K63.3 Ulcer of intestine; K92.2 Gastrointestinal hemorrhage, unspecified; E87.1 Hypo-osmolality and hyponatremia; Z68.1 Body mass index [BMI] 19.9 or less, adult; J96.11 Chronic respiratory failure with hypoxia; R65.10 Systemic inflammatory response syndrome (SIRS) of non-infectious origin without acute organ dysfunction; J44.9 Chronic obstructive pulmonary disease, unspecified; D50.9 Iron deficiency anemia, unspecified; J84.10 Pulmonary fibrosis, unspecified; E11.22 Type 2 diabetes mellitus with diabetic chronic kidney disease; B96.20 Unspecified Escherichia coli [E. coli] as the cause of diseases classified elsewhere; K20.90 Esophagitis, unspecified without bleeding; I95.89 Other hypotension; R62.7 Adult failure to thrive; K75.81 Nonalcoholic steatohepatitis (NASH); R57.8 Other shock; K74.60 Unspecified cirrhosis of liver; K72.90 Hepatic failure, unspecified without coma; Z79.899 Other long term (current) drug therapy; Z88.2 Allergy status to sulfonamides; Z88.8 Allergy status to other drugs, medicaments and biological substances; D69.6 Thrombocytopenia, unspecified; Z95.1 Presence of aortocoronary bypass graft; Z51.5 Encounter for palliative care